=== PATIENT | female | born 1950 | race Caucasian/White ===

== ENCOUNTER → 2017-07-21 08:46 | Outpatient (CLI) | payer MEDICARE, OTHER, SELFPAY ==
--- NOTE | 2017-07-21 08:46 | DT_ITS ---
This patient was seen during an EMR downtime July 21, 2017 - July 28, 2017. This patient may have a combination of paper and electronic documentation or all paper documentation. All documentation is viewable within the e-chart portion of [employer] for each patient visit.
[2017-07-27 04:34] LABS: ALB/GLOB Ratio 1.3 RATIO (0.9-2.4); AST(SGOT) 18 U/L (15-37); Alanine Aminotransfer ALT/SGPT 19 U/L (13-56); Albumin, Serum 3.7 g/dL (3.2-5.0); Alkaline Phosphatase 134 U/L (45-117); BUN 15 mg/dL (7-18); BUN/Creat Ratio 24.6 RATIO (10-20); Calcium,Total 8.7 mg/dL (8.5-10.1); Cholesterol 270 mg/dL (200); Creatinine, Serum 0.61 mg/dL (0.55-1.02); EST Glomerular Filtration Rate 104 mL/min (>60); Est Glom Filt Rate - Afr Amer 126 mL/min (>60); Globulin 2.8 g/dL (2.2-4.2); Glucose 86 mg/dL (74-106); Protein, Total 6.5 g/dL (6.4-8.2); Sodium Level 141 mmol/L (136-145); Triglycerides 78 mg/dL; Very Low Density Lipoprotein 16 mg/dL (5-40)
[2017-07-27 04:35] LABS: Anion Gap 8 (5-15); Chloride 106 mmol/L (98-107); High Density Lipoprotein 104 mg/dL; Potassium 3.6 mmol/L (3.5-5.1)
[2017-07-27 09:18] LABS: Thyroid Stim Hormone (TSH) 1.16 uIU/mL (0.358-3.74)
[2017-07-27 09:51] LABS: Vitamin D,25 Hydroxy 29.5 ng/mL (29.95-100.01)
== END ==
PROVIDERS: Family Provider Family Medicine; PCP Family Medicine; Visit Provider Family Medicine
DX: E03.9 Hypothyroidism, unspecified (principal); E55.9 Vitamin D deficiency, unspecified; E78.2 Mixed hyperlipidemia
CPT/HCPCS: 36415; 80053; 80061; 82306; 84443

== ENCOUNTER → 2017-09-01 10:49 | Outpatient (CLI) | payer MEDICARE, OTHER, SELFPAY ==
--- NOTE | 2017-09-01 11:13 | MRI_ITS ---
STUDY: MRI BRAIN WITH AND WITHOUT CONTRAST (ATTENTION INTERNAL AUDITORY CANALS - I.A.C.'s) REASON FOR EXAM: Female, 66 years old. 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 Cochlear implant. Magnetic component of implant removed. Sudden right sided headaches when bending over. TECHNIQUE: Standardized multiplanar fat and water weighted pulse sequences were obtained. 6 ml of Gadavist contrast material was administered intravenously for the contrast portion of the examination. COMPARISON: 02/16/2016. FINDINGS: No restricted diffusion to suspect acute or subacute ischemic infarct. No focal signal abnormalities throughout the brain parenchyma. The zhong matter, white matter, ventricles and cisterns are normal. No enhancing lesions throughout the brain parenchyma. The ventricles and cisterns are normal. Soft tissue density in the right temporal mastoid bowl is at least postoperative fat graft.. There is mild contrast enhancement around the fat graft inside the mastoid bowl. Normal bilateral internal auditory canals. There is no demonstrated intracanalicular or cisternal vestibular schwannoma (acoustic neuroma). There is no enhancement of the bilateral VIIth or VIIIth cranial nerves. Normal bilateral cochlea, vestibules and semicircular canals. Normal size of the ventricles and extra-axial spaces for the patient's age. Normal white matter tracts of the supratentorial brain. Normal bilateral basal ganglia. Normal thalami. Normal flow voids within the major intracranial circulation suggesting patency by spin echo criteria. Normal venous enhancement. There is no enhancing intra-axial or extra-axial abnormality. There is no extra-axial fluid accumulation. Normal sella turcica, pituitary gland, infundibular stalk, optic chiasm and hypothalamus. Normal tectal plate and pineal gland. Normal midbrain, saige and medulla. Normal cerebellum. Normal basal cisterns. No demonstrated orbital abnormality, within the constraints of a routine brain study. Normal visualized paranasal sinuses. Normal calvarium and skull base. Normal visualized soft tissue structures. Normal visualized upper cervical spine. MRI/Brain W/WO Contrast IMPRESSION: 1. Normal MRI of the brain and thin sections through the internal auditory canals with and without contrast. 2. Postoperative contrast enhancement around the fat graft inside the right temporal mastoid bowl. COMMENT: CT of the temporal bones are more helpful for evaluation of postop changes of the right temporal bone if desired. Electronically Signed: Scar Conte MD at 16:06 EDT , Service support ,
== END ==
PROVIDERS: Family Provider Family Medicine; PCP Family Medicine; Visit Provider Family Medicine
DX: H93.3X9 Disorders of unspecified acoustic nerve (principal)
CPT/HCPCS: 70553; A9585

== ENCOUNTER → 2017-09-12 06:48 | Outpatient (CLI) | payer MEDICARE, OTHER, SELFPAY ==
--- NOTE | 2017-09-12 10:08 | STRESSREP ---
Stress Test Report Date: 09/11/2017 Procedure: Exercise tolerance test/imaging study Indications: Chest pain Consent: Per the patient Procedure: The patient exercised on a Raul protocol for 9 minutes completing Stage 3 achieving a peak heart rate of 157 bpm (102 % predicted maximal heart rate) with a peak blood pressure 156/70 mmHg and a peak MET capacity of 10 METs. The baseline ECG demonstrated normal sinus rhythm. The peak exercise ECG demonstrated no obvious ECG changes. There was an occasional PVC during exercise and recovery. The functional capacity was considered good. There was no complaint of chest discomfort during exercise or recovery. The examination was discontinued secondary to leg discomfort. Impression: 1. Technically adequate (percent predicted maximal heart rate greater than 85%) exercise tolerance test 2. Peak exercise ECG with no obvious ECG changes 3. There was an occasional PVC during exercise and recovery. 4. Nuclear images pending Myocardial perfusion imaging study: Technique: The patient was injected with 11.1 mCi of technetium 99m Cardiolite and subsequently rest SPECT Cardiolite nuclear imaging was obtained in the horizontal long, vertical long, and short axis views. The patient exercised on a Raul protocol for 9 minutes completing Stage 3 achieving a peak heart rate of 157 bpm (102 % predicted maximal heart rate) with a peak blood pressure 156/70 mmHg and a peak MET capacity of 10 METs. The patient was injected with 35 mCi of technetium 99m Cardiolite and subsequently stress SPECT Cardiolite nuclear imaging was obtained in the horizontal long, vertical long, and short axis views. A gated Cardiolite study at peak stress was obtained. Interpretation: Rest and stress SPECT Cardiolite nuclear imaging status post realignment, normalization, and attenuation correction, demonstrates the appearance of relative uniform tracer uptake and myocardial perfusion appearing within normal limits. There is end systolic thickening and brightening. The gated Cardiolite study demonstrates myocardial thickening and inward wall motion. The reported LVEF is 76 %. Impression: 1. Rest and stress SPECT Cardiolite nuclear imaging demonstrate relative uniform tracer uptake and myocardial perfusion appearing within normal limits. 2. The gated Cardiolite study reports an LVEF of 76 %. This note was generated with [employer] software. It may contain incorrect words, spelling, and punctuation that were not noted in checking the note before signing.
--- NOTE | 2017-09-12 10:16 | STRESSREP_ITS ---
Stress Test Report Date: 09/11/2017 Procedure: Exercise tolerance test/imaging study Indications: Chest pain Consent: Per the patient Procedure: The patient exercised on a Raul protocol for 9 minutes completing Stage 3 achieving a peak heart rate of 157 bpm (102 % predicted maximal heart rate) with a peak blood pressure 156/70 mmHg and a peak MET capacity of 10 METs. The baseline ECG demonstrated normal sinus rhythm. The peak exercise ECG demonstrated no obvious ECG changes. There was an occasional PVC during exercise and recovery. The functional capacity was considered good. There was no complaint of chest discomfort during exercise or recovery. The examination was discontinued secondary to leg discomfort. Impression: 1. Technically adequate (percent predicted maximal heart rate greater than 85% ) exercise tolerance test 2. Peak exercise ECG with no obvious ECG changes 3. There was an occasional PVC during exercise and recovery. 4. Nuclear images pending Myocardial perfusion imaging study: Technique: The patient was injected with 11.1 mCi of technetium 99m Cardiolite and subsequently rest SPECT Cardiolite nuclear imaging was obtained in the horizontal long, vertical long, and short axis views. The patient exercised on a Raul protocol for 9 minutes completing Stage 3 achieving a peak heart rate of 157 bpm (102 % predicted maximal heart rate) with a peak blood pressure 156/ 70 mmHg and a peak MET capacity of 10 METs. The patient was injected with 35 mCi of technetium 99m Cardiolite and subsequently stress SPECT Cardiolite nuclear imaging was obtained in the horizontal long, vertical long, and short axis views. A gated Cardiolite study at peak stress was obtained. Interpretation: Rest and stress SPECT Cardiolite nuclear imaging status post realignment, normalization, and attenuation correction, demonstrates the appearance of relative uniform tracer uptake and myocardial perfusion appearing within normal limits. There is end systolic thickening and brightening. The gated Cardiolite study demonstrates myocardial thickening and inward wall motion. The reported LVEF is 76 %. Impression: 1. Rest and stress SPECT Cardiolite nuclear imaging demonstrate relative uniform tracer uptake and myocardial perfusion appearing within normal limits. 2. The gated Cardiolite study reports an LVEF of 76 %. This note was generated with [employer] software. It may contain incorrect words, spelling, and punctuation that were not noted in checking the note before signing.
== END ==
PROVIDERS: Family Provider Family Medicine; PCP Family Medicine; Visit Provider Internal Medicine Cardiovascular Disease
DX: R07.9 Chest pain, unspecified (principal)
CPT/HCPCS: 78452; 93017; A9500; A4216

== ENCOUNTER → 2017-09-19 14:45 | Outpatient (CLI) | payer MEDICARE, OTHER, SELFPAY ==
--- NOTE | 2017-09-19 14:54 | CT_ITS ---
STUDY: CT BRAIN WITH AND WITHOUT CONTRAST REASON FOR EXAM: Female, 66 years old. Acoustic nerve disorder. RADIATION DOSAGE (If Supplied By Facility): CTDIvol = ( 44.99 ) mGy, DLP = ( 1547.23 ) mGycm TECHNIQUE: Transaxial CT imaging of the brain was performed pre and post contrast administration. The examination was performed with intravenous administration of 50 ml of Isovue 370 contrast material. Multiplanar reformations are submitted for interpretation. Individualized dose optimization techniques were used for this CT. COMPARISON: MRI of the brain dated September 01, 2017. FINDINGS: Normal soft tissue structures. 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 The right middle ear ossicles are within normal limits. The right external auditory canal is within normal limits. There appears to be ossification of the dura adjacent to the convexities of the brain. There is mild cerebral atrophy with widening of the extra-axial spaces and ventricular dilatation. There are areas of decreased attenuation within the white matter tracts of the supratentorial brain, consistent with microvascular disease changes. Normal basal ganglia and thalami. Normal brainstem. There is mild cerebellar atrophy. There is no evidence for abnormal enhancement. There is no intracranial hemorrhage. There is mild atherosclerotic calcification of the intracranial arteries. Normal visualized paranasal sinuses. CT/Brain/Head W/WO Contrast IMPRESSION: 1. Postoperative changes involving the right mastoid and temporal bone without evidence for complication. 2. Mild involutional changes of the brain. Electronically Signed: Judi Mike MD at 11:58 EDT , Service support ,
[2017-09-19 15:00] LABS: CREATININE FINGERSTICK < 0.6 mg/dL (0.55-1.02); EGFR FINGERSTICK > 60.0000 mL/min (>60)
== END ==
PROVIDERS: Family Provider Family Medicine; PCP Family Medicine; Visit Provider Family Medicine
DX: H93.3X9 Disorders of unspecified acoustic nerve (principal)
CPT/HCPCS: 70470; Q9967

== ENCOUNTER → 2017-12-18 09:28 | Outpatient (CLI) | payer MEDICARE, OTHER, SELFPAY ==
[2017-12-18 12:15] LABS: Vitamin D,25 Hydroxy 46.6 ng/mL (29.95-100.01)
[2017-12-18 12:41] LABS: Anion Gap 8 (5-15); BUN 13 mg/dL (7-18); BUN/Creat Ratio 20.2 RATIO (10-20); Calcium,Total 8.7 mg/dL (8.5-10.1); Chloride 104 mmol/L (98-107); Cholesterol 263 mg/dL (200); Creatinine, Serum 0.64 mg/dL (0.55-1.02); EST Glomerular Filtration Rate 97 mL/min (>60); Est Glom Filt Rate - Afr Amer 118 mL/min (>60); Glucose 81 mg/dL (74-106); High Density Lipoprotein 101 mg/dL; Sodium Level 141 mmol/L (136-145); Thyroid Stim Hormone (TSH) 1.36 uIU/mL (0.358-3.74); Triglycerides 92 mg/dL; Very Low Density Lipoprotein 18 mg/dL (5-40)
== END ==
PROVIDERS: Family Provider Family Medicine; PCP Family Medicine; Referring Provider Family Medicine; Visit Provider Family Medicine
DX: E78.2 Mixed hyperlipidemia (principal); E03.9 Hypothyroidism, unspecified; E55.9 Vitamin D deficiency, unspecified
CPT/HCPCS: 36415; 80048; 80061; 82306; 84443

== ENCOUNTER → 2018-04-01 09:43 | Outpatient (CLI) | payer MEDICARE, OTHER, SELFPAY ==
--- NOTE | 2018-04-01 09:48 | VDLE_ITS ---
Reason For Study: Varicose Veins RIGHT CFV is compressible, spontaneous, phasic, competent and demonstrates normal augmentation. FV is compressible, spontaneous, phasic, competent and demonstrates normal augmentation. POP V is compressible, spontaneous, phasic, competent and demonstrates normal augmentation. T/P Trunk is compressible. PTV is compressible. RT PerV is compressible. Rt SFJ is Competent Rt GSV is Incompetent with reflux greater than 0.5 sec and a diameter of 0.40cm x 0.47cm in the thigh and 0.18cm x 0.18cm in the calf Rt SSV is Competent. Procedure Exam performed in department. A preliminary report was called and/or faxed to Dr. Douglas. Interpretation Summary Deep veins of the right lower extremity are patent and compressible segmentally. There is no evidence of right lower extremity deep vein thrombosis. Valvular competence appears intact within the proximal deep venous system on the right . The right greater saphenous vein appears patent and compressible segmentally. The right sapheno-femoral junction is competent . The right greater saphenous vein appears segmentally incompetent. The right small saphenous vein is patent and competent. Ordering Physician: Bulmaro Douglas Referring Physician: Bulmaro Douglas Performed By: Fyae Hayes, ADDISON, RVT
== END ==
PROVIDERS: Family Provider Family Medicine; PCP Family Medicine; Referring Provider Family Medicine; Visit Provider Family Medicine
DX: I83.811 Varicose veins of right lower extremity with pain (principal)
CPT/HCPCS: 93971

== ENCOUNTER 2018-05-21 14:30 | Outpatient (RCR) | payer MEDICARE, OTHER, SELFPAY ==
--- NOTE | 2018-05-01 15:06 | HP.PTEVAL_ITS ---
Patient's Visit Information AYESHA FOLEY is a 67 year old F referred to Physical Therapy by Hawk Douglas MD with a diagnosis of LEFT TRAPEZIUS STRAIN. Date of Evaluation: 05/01/18 Physical Therapist: Chacho Estrada PT, Cert MDT, OCS - Visit Plan Frequency: 2x /Week Duration: 4 Weeks Plan: ICTX -# X15MIN,US/ MHP ,CERVICAL /POSURAL EX'S ,MANUAL THERAPY STM - Subjective Findings: This 67 y/o female presents to physical therapy with left upper trapezius strain . Patient has had left UT pain for 3 weeks. Patient inscidous onset pain in morning. Patient seen chiropractor did'nt help and massage didnt help as well. Symptoms described as ache . Aggraveting factors turning to left and looking up,driving [place] [employer]. Alleviating factors none. Denies parathesia/tingling. Denies ARMSTRONG/nausea/tinntus. 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 SOCAIL: . VOCATION: retired - Pain Left Neck Pain Intensity (Out of 10): 5 Pain Intensity Range: 10 Comment: turning - Objective POSTURE: mild foward posture. PALAPTION:tender UT/levator ,tender right posterior ear. NEURO: intact. MMT: grossly 4/5 ,shoulder ,RTC. CERVICAL ROM: flexion min loss ,lateral flexion/rotation to left mod loss pain,extension mod loss pain UT,right rotation/lateral flexion mod loss. MOBLILITY: restricted C2- 4 LEFT glides accessory - Special Tests C/S Radiculapathy - Left Upper limb tension test: Negative C/S Radiculapathy - Right Upper limb tension test: Negative C/S Radiculapathy - Left Spurlings: Positive C/S Radiculapathy - Right Spurlings: Negative C/S Radiculapathy - Left Cervical distraction: Negative C/S Radiculapathy - Right Cervical distraction: Negative C/S Radiculapathy - Left Relief test: Negative C/S Radiculapathy - Right Relief test: Negative Sharp Michelle: Negative Vertebral Artery Test: Negative Alar Ligament Test: Negative - Goals Goal 1:: Patient to be Independant with HEP Goal Time Frame: 4-6 Weeks Goal 2:: Patient to improve posture for ADL'S Goal Time Frame: 4-6 Weeks Goal 3:: Patient to improve cervical ROM left rotation/lateral flexion for function of recovery Goal Time Frame: 4-6 Weeks Goal 4:: Patient to decrease cervical pain by 60% or greater to impriove function with ADL'S Goal Time Frame: 4-6 Weeks Goal 5:: Patient to improve neck GISELL score by 5 points to improve QOL. - Rehabilitation Potential Physical Therapy Diagnosis: This patient has left cervical spine restriction left side with pain affects cervical ROM ,ADL'S and driving thus benifit from skilled PT Rehabilitation Potential: Good - Anticipated Interventions Patient/Client Instruction: Educate patient on: Condition, Plan of Care For the Purpose of:: To decrease pain, To increase ROM, To improve muscle performance and motor function, To improve ability to perform ADL's, To increase tolerance to activity/condition/position, To improve ability of physical actions for home/community/work/leisure, To improve health of tissue, To decrease soft tissue restriction, To increase flexibility/ROM, To improve ability to perform tasks related to life management Therapeutic Exercise to Include: Strength training, Body mechanics, Postural training, Flexibilty training, Active ROM Comment: cervical For the Purpose of:: To decrease pain, To increase ROM, To improve nutrient delivery to tissue, To increase oxygenation perfusion, To improve muscle performance and motor function, To increase tolerance to activity/condition/position, To improve ability of physical actions for home/community/work/leisure, To improve health of tissue, To decrease soft tissue restriction, To increase flexibility/ROM, To improve ability to perform tasks related to life management Manual Therapy Techniques to Include: Soft tissue mobilization For the Purpose of:: To decrease pain, To increase ROM, To improve nutrient delivery to tissue, To increase oxygenation perfusion, To improve health of tissue, To decrease soft tissue restriction Cryotherapy (ice pack, ice massage): Yes Thermo therapy (hot pack): Yes Ultrasound (thermal/non thermal): Yes For the Purpose of:: To decrease pain, To increase ROM, To improve health of tissue, To decrease soft tissue restriction Thank you for the opportunity to evaluate your patient. For Medicare and Medicare HMO plans, please review the plan of care and approve it. It will need to be FAXED BACK to us at [phone] for Medicare purposes. For Medicare only, by signing this I certify the plan of care. Please let me know if there are questions or concerns regarding this plan of care. Physician Signature: Date:_
--- NOTE | 2018-10-01 15:27 | HP.PTDCSUM ---
HP - PT D/C Summary It has been my pleasure to treat AYESHA FOLEY under orders from Hawk Douglas MD, for the diagnosis of LEFT TRAPEZIUS STRAIN for a total of 7 visit(s). Discharge Date: 05/21/18 Please see the following information for a summary of their discharge status. - Subjective Subjective: Patient reports not much better. No pain at rest. stiff in AM and when turning my neck to left. - Pain Left Neck Pain Intensity (Out of 10): 0 - Overall Improvement % Improvement: 40 - Objective Objective/Function: POSTURE: mild foward posture. NEURO: INTACT. NEURO: untact. CERVICAL ROM: flexion min loss ,lateral flexion/rotaion min loss pain left Upper c spine NW. PALPATION: tender UT /levator - Goals Goal 1:: Patient to be Independant with HEP Goal Progress: Goal Met Goal 2:: Patient to improve posture for ADL'S Goal Progress: Goal Met Goal 3:: Patient to improve cervical ROM left rotation/lateral flexion for function of recovery Goal Progress: Progressing Goal 4:: Patient to decrease cervical pain by 60% or greater to impriove function with ADL'S Goal Progress: Progressing Goal 5:: Patient to improve neck GISELL score by 5 points to improve QOL. Goal Progress: Progressing - Plan Plan: D/C TO HEP - D/C Information Discharge Comments: HEP If there are questions or concerns regarding this patient's physical therapy, please feel free to call me at [phone]. Thank you for the referral of this patient. Sincerely, Chacho Estrada, PT, Cert MDT, OCS
== END 2018-05-21 19:00 ==
LOC: PT 14:30
PROVIDERS: Family Provider Family Medicine; PCP Family Medicine; Referring Provider Family Medicine; Visit Provider Family Medicine
DX: S46.912D Strain of unspecified muscle, fascia and tendon at shoulder and upper arm level, left arm, subsequent encounter (principal)
CPT/HCPCS: 97012; 97014; 97035; 97140; 97162; 97530; G0283

== ENCOUNTER → 2018-09-15 07:36 | Outpatient (CLI) | payer MEDICARE, OTHER, SELFPAY ==
[2018-09-15 10:33] LABS: Vitamin D,25 Hydroxy 49.9 ng/mL (29.95-100.01)
[2018-09-15 10:37] LABS: Anion Gap 6 (5-15); BUN 17 mg/dL (7-18); BUN/Creat Ratio 26.4 RATIO (10-20); Calcium,Total 8.7 mg/dL (8.5-10.1); Chloride 106 mmol/L (98-107); Creatinine, Serum 0.64 mg/dL (0.55-1.02); EST Glomerular Filtration Rate 97 mL/min (>60); Est Glom Filt Rate - Afr Amer 117 mL/min (>60); Glucose 84 mg/dL (74-106); Potassium 3.8 mmol/L (3.5-5.1); Sodium Level 142 mmol/L (136-145); Thyroid Stim Hormone (TSH) 1.96 uIU/mL (0.358-3.74)
== END ==
PROVIDERS: Family Provider Family Medicine; PCP Family Medicine; Referring Provider Family Medicine; Visit Provider Family Medicine
DX: E03.9 Hypothyroidism, unspecified (principal); E55.9 Vitamin D deficiency, unspecified
CPT/HCPCS: 36415; 80048; 82306; 84443

== ENCOUNTER → 2018-09-22 12:01 | Outpatient (CLI) | payer MEDICARE, BC, SELFPAY ==
[2018-09-22 14:39] LABS: Magnesium 2.3 mg/dL (1.6-2.6); Phosphorus 3.6 mg/dL (2.5-4.9)
[2018-09-22 14:46] LABS: PTHIN 58.6 pg/mL (18.4-80.1)
== END ==
PROVIDERS: Family Provider Family Medicine; PCP Family Medicine; Referring Provider Family Medicine; Visit Provider Family Medicine
DX: M81.0 Age-related osteoporosis without current pathological fracture (principal)
CPT/HCPCS: 36415; 82330; 83735; 83970; 84100

== ENCOUNTER → 2018-12-10 12:42 | Outpatient (CLI) | payer MEDICARE, BC, SELFPAY ==
[2018-11-25 11:30] VITALS: BMI 24.1
--- NOTE | 2018-12-10 12:43 | ECHOD_ITS ---
Reason For Study: MURMUR Procedure This was a 2D Doppler, Color Flow transthoracic echocardiogram. The study was technically difficult. Exam performed in department. Left Ventricle Normal LV size. Left ventricular systolic function is normal. The estimated ejection fraction is 60 %. Diastolic function is indeterminate. No regional wall motion abnormalities noted. Right Ventricle Normal RV size. Normal systolic function. Atria Normal left atrium. Normal right atrium. No doppler evidence for ASD. Mitral Valve There is no mitral annular calcification. Normal mitral valve. Mild (1+) mitral valve insufficiency. Tricuspid Valve Normal tricuspid valve. Trivial tricuspid valve insufficiency. Unable to estimate RV systolic pressure/pulmonary artery pressure due to technically difficult study. Aortic Valve Trisinus/trileaflet aortic valve. Normal aortic valve. Pulmonic Valve The pulmonic valve is not well visualized. Trivial pulmonic valve insufficiency. Great Vessels Normal sized aortic root. Pericardium/Pleural Trivial pericardial effusion. There are no echocardiographic indications of cardiac tamponade. MMode/2D Measurements & Calculations LVIDd: 4.4 cm IVSd: 1.1 cm Ao root diam: 2.6 cm LVIDs: 3.0 cm LVPWd: 0.93 cm RVDd: 3.0 cm FS: 30.8 % LAV(MOD-bp): 32.4 ml LA A4 area: 14.9 cm2 LA dimension(2D): 3.1 cm LAV(MOD-bp) Indexed: 20.5 ml/m2 LAV(MOD-sp2): 27.5 ml LAV(MOD-sp4): 36.6 ml RA A4 area: 12.6 cm2 Time Measurements MV dec time: 0.16 sec Doppler Measurements & Calculations MV E max anthony: 82.7 cm/sec Lat Peak E' Anthony: 5.9 cm/sec Med Peak E' Anthony: 6.4 cm/sec MV A max anthony: 105.1 cm/sec E/E' lat: 13.9 E/E' med: 12.9 MV E/A: 0.79 Ao V2 max: 142.0 cm/sec LV V1 max: 84.5 cm/sec PA V2 max: 95.0 cm/sec Ao max P.1 mmHg LV V1 max P.9 mmHg Interpretation Summary The study was technically difficult. Left ventricular systolic function is normal. The estimated ejection fraction is 60 %. Mild (1+) mitral valve insufficiency. Trivial tricuspid valve insufficiency. Trivial pulmonic valve insufficiency. Trivial pericardial effusion. There are no echocardiographic indications of cardiac tamponade. Unable to estimate RV systolic pressure/pulmonary artery pressure due to technically difficult study. Diastolic function is indeterminate. Ordering Physician: Mac Bynum Referring Physician: Bulmaro Douglas Performed By: Deysi Infante, ADDISON, RVT
== END ==
PROVIDERS: Family Provider Family Medicine; PCP Family Medicine; Referring Provider Internal Medicine Cardiovascular Disease; Visit Provider Internal Medicine Cardiovascular Disease
DX: R01.1 Cardiac murmur, unspecified (principal)
CPT/HCPCS: 93306

== ENCOUNTER → 2019-01-07 08:31 | Outpatient (CLI) | payer MEDICARE, BC, SELFPAY ==
[2018-11-25 11:30] VITALS: BMI 24.1
--- NOTE | 2019-01-07 17:35 | NEURO ---
NCS and/or EMG Patient Report HPI: Patient is a 68-year-old female presented with feeling of tape stuck to bottom of her feet, right worse than left, which has been going on for last 2 years. Patient has calluses in feet. Sensation goes throughout the entire foot and into her ankle. Patient has H/O back problems but currently denying any back pain or radiating pain in the legs. Physical Exam: Calluses present in the right foot at the head of the metatarsal bones on both feet, more prominent on the right side than the left side. Decreased sensation to light touch in the both feet and distal ankle area. Findings: 1. There is prolongation of the distal latency of left sural sensory nerve response. 2. Rest of sensory and motor nerve conduction studies in the bilateral lower extremities are within normal limits. 3. Normal needle examination of the bilateral lower extremities. Impression: 1. 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 2. Rest of the nerve conduction studies were normal in bilateral lower extremities. Recommendation: 1. Clinical correlation and appropriate work-up is recommended.
== END ==
PROVIDERS: Family Provider Family Medicine; PCP Family Medicine; Referring Provider Podiatrist; Visit Provider Podiatrist
DX: G62.9 Polyneuropathy, unspecified (principal); R20.0 Anesthesia of skin
CPT/HCPCS: 95886; 95911

== ENCOUNTER → 2019-03-02 09:20 | Outpatient (CLI) | payer MEDICARE, BC, SELFPAY ==
[2018-11-25 11:30] VITALS: BMI 24.1
[2019-03-02 12:21] LABS: Erythrocyte Sedimentation Rate 4 mm/hr (0-30)
[2019-03-02 13:12] LABS: Rheumatoid Factor < 10.0 IU/mL (<15); Thyroid Stim Hormone (TSH) 1.34 uIU/mL (0.358-3.74)
[2019-03-02 13:21] LABS: HIV - WCH Non-Reactive (Nonreactive); Vitamin B12 501 pg/mL (211-911)
[2019-03-02 13:29] LABS: Hepatitis C Antibody REACTIVE (Nonreactive)
[2019-03-03 12:07] LABS: RNP Ab <0.2 AI (0.0-0.9); Smith Ab <0.2 AI (0.0-0.9)
[2019-03-03 13:10] LABS: ANTINUCLEAR ANTIBODIES DIRECT Positive (Negative)
[2019-03-03 20:07] LABS: Immunoglobulin A 85 mg/dL (87-352); Immunoglobulin G 507 mg/dL (700-1600); PROEL- A/G Ratio 1.5 (0.7-1.7); PROEL- Albumin 3.5 g/dL (2.9-4.4); PROEL- Alpha-1 Globulin 0.2 g/dL (0.0-0.4); PROEL- Alpha-2 Globulin 0.7 g/dL (0.4-1.0); PROEL- Beta Globulin 0.9 g/dL (0.7-1.3); PROEL- Gamma Globulin 0.5 g/dL (0.4-1.8); PROEL- Globulin, Total 2.3 g/dL (2.2-3.9); PROEL- TOTAL PROTEIN 5.8 g/dL (6.0-8.5)
[2019-03-03 20:55] LABS: Immunoglobulin M 120 mg/dL (26-217)
== END ==
PROVIDERS: Family Provider Family Medicine; PCP Family Medicine; Referring Provider Psychiatry & Neurology Neurology; Visit Provider Psychiatry & Neurology Neurology
DX: G62.9 Polyneuropathy, unspecified (principal)
CPT/HCPCS: 36415; 82607; 82746; 82784; 84165; 84443; 85652; 86038; 86235; 86334; 86431; 86703; 86803

== ENCOUNTER → 2019-03-08 11:16 | Outpatient (CLI) | payer MEDICARE, BC, SELFPAY ==
[2018-11-25 11:30] VITALS: BMI 24.1
--- NOTE | 2019-03-08 11:20 | RAD_ITS ---
STUDY: X-RAY CHEST REASON FOR EXAM: Female, 68 years old. Cough. TECHNIQUE: PA and lateral views of the chest. COMPARISON: 02/15/2016. FINDINGS: Cardiac silhouette unremarkable. Pulmonary vascularity unremarkable. Aorta unremarkable. No focal airspace opacities. No pleural effusions. Upper abdomen unremarkable. Osseous structures demonstrate no acute abnormality. No pneumothorax. RAD/Chest PA and Lateral IMPRESSION: No acute cardiopulmonary findings Electronically Signed: Brendon Ortega, at 13:44 EST Tel , Service support ,
[2019-03-08 14:20] LABS: AST(SGOT) 16 U/L (15-37); Alanine Aminotransfer ALT/SGPT 23 U/L (13-56); Albumin, Serum 3.7 g/dL (3.2-5.0); Alkaline Phosphatase 119 U/L (45-117); CRP < 2.90 mg/L (0.0-3.0); Globulin 3.3 g/dL (2.2-4.2)
[2019-03-11 15:49] LABS: Anti-Nuclear Antibody Test Negative (.)
== END ==
PROVIDERS: PCP Family Medicine; Referring Provider Family Medicine; Visit Provider Family Medicine
DX: R05 Cough (principal); G62.9 Polyneuropathy, unspecified; Z86.19 Personal history of other infectious and parasitic diseases
CPT/HCPCS: 36415; 71046; 80076; 86038; 86140

== ENCOUNTER → 2019-03-16 09:26 | Outpatient (CLI) | payer MEDICARE, BC, SELFPAY ==
[2018-11-25 11:30] VITALS: BMI 24.1
[2019-03-16 11:33] LABS: Glucose GTT- Fasting 77 mg/dL (74-106)
[2019-03-16 11:41] LABS: Glucose GTT-30 minutes 110 mg/dL (110-170)
[2019-03-16 12:48] LABS: Glucose GTT- 1 Hour 92 mg/dL (120-170)
[2019-03-16 14:21] LABS: Glucose GTT- 2 Hour 85 mg/dL (70-120)
== END ==
PROVIDERS: Family Provider Family Medicine; PCP Family Medicine; Referring Provider Psychiatry & Neurology Neurology; Visit Provider Psychiatry & Neurology Neurology
DX: R53.83 Other fatigue (principal); G62.9 Polyneuropathy, unspecified
CPT/HCPCS: 36415; 82607; 82746; 82784; 82951; 82952; 84165; 85652; 86038; 86235; 86334; 86431; 86703; 86803

== ENCOUNTER → 2019-03-23 09:02 | Outpatient (CLI) | payer MEDICARE, BC, SELFPAY ==
[2018-11-25 11:30] VITALS: BMI 24.1
[2019-03-23 11:07] LABS: Cholesterol 299 mg/dL (200); High Density Lipoprotein 106 mg/dL; Triglycerides 83 mg/dL; Very Low Density Lipoprotein 17 mg/dL (5-40)
[2019-03-23 11:13] LABS: Vitamin D,25 Hydroxy 49.5 ng/mL (29.95-100.01)
== END ==
PROVIDERS: PCP Family Medicine; Referring Provider Family Medicine; Visit Provider Family Medicine
DX: M81.0 Age-related osteoporosis without current pathological fracture (principal); E55.9 Vitamin D deficiency, unspecified; E78.2 Mixed hyperlipidemia
CPT/HCPCS: 36415; 80061; 82306; 82330

== ENCOUNTER → 2019-03-29 09:39 | Outpatient (CLI) | payer MEDICARE, BC, SELFPAY ==
[2018-11-25 11:30] VITALS: BMI 24.1
[2019-03-31 20:07] LABS: HCV Quant. RNA PCR HCV Not Detected IU/mL (.)
== END ==
PROVIDERS: PCP Family Medicine; Referring Provider Family Medicine; Visit Provider Family Medicine
DX: R76.8 Other specified abnormal immunological findings in serum (principal)
CPT/HCPCS: 36415; 87522

== ENCOUNTER → 2019-05-05 08:18 | Outpatient (CLI) | payer MEDICARE, BC, SELFPAY ==
[2018-11-25 11:30] VITALS: BMI 24.1
== END ==
PROVIDERS: PCP Family Medicine; Referring Provider Physician Assistant; Visit Provider Physician Assistant
DX: M81.0 Age-related osteoporosis without current pathological fracture (principal)
CPT/HCPCS: 81050

== ENCOUNTER → 2019-06-14 08:49 | Outpatient (CLI) | payer MEDICARE, BC, SELFPAY ==
[2018-11-25 11:30] VITALS: BMI 24.1
== END ==
PROVIDERS: PCP Family Medicine; Referring Provider Internal Medicine Endocrinology, Diabetes & Metabolism; Visit Provider Internal Medicine Endocrinology, Diabetes & Metabolism
DX: E03.8 Other specified hypothyroidism (principal)
CPT/HCPCS: 36415; 84443

== ENCOUNTER → 2019-10-19 09:48 | Outpatient (CLI) | payer MEDICARE, BC, SELFPAY ==
[2018-11-25 11:30] VITALS: BMI 24.1
[2019-10-19 12:25] LABS: ALB/GLOB Ratio 1.4 RATIO (0.9-2.4); AST(SGOT) 17 U/L (15-37); Alanine Aminotransfer ALT/SGPT 18 U/L (13-56); Albumin, Serum 3.7 g/dL (3.2-5.0); Alkaline Phosphatase 135 U/L (45-117); Anion Gap 4 (5-15); BUN 17 mg/dL (7-18); BUN/Creat Ratio 24.3 RATIO (10-20); Calcium,Total 8.6 mg/dL (8.5-10.1); Chloride 105 mmol/L (98-107); Cholesterol 292 mg/dL (200); EST Glomerular Filtration Rate 88 mL/min (>60); Est Glom Filt Rate - Afr Amer 106 mL/min (>60); Globulin 2.7 g/dL (2.2-4.2); Glucose 82 mg/dL (74-106); High Density Lipoprotein 112 mg/dL; Potassium 4.2 mmol/L (3.5-5.1); Protein, Total 6.4 g/dL (6.4-8.2); Sodium Level 141 mmol/L (136-145); T4 Free Direct 1.25 ng/dL (0.76-1.46); Thyroid Stim Hormone (TSH) 1.26 uIU/mL (0.358-3.74); Triglycerides 88 mg/dL; Very Low Density Lipoprotein 18 mg/dL (5-40)
== END ==
PROVIDERS: PCP Family Medicine; Referring Provider Family Medicine; Visit Provider Family Medicine
DX: E78.2 Mixed hyperlipidemia (principal); E03.9 Hypothyroidism, unspecified
CPT/HCPCS: 36415; 80053; 80061; 84439; 84443

== ENCOUNTER → 2019-11-19 14:39 | Outpatient (CLI) | payer MEDICARE, BC, SELFPAY ==
[2018-11-25 11:30] VITALS: BMI 24.1
--- NOTE | 2019-11-19 14:59 | BI_ITS ---
MAMMOGRAPHY - BILATERAL SCREENING REASON FOR EXAM: Female, 69 years old. Routine annual screening examination. PERTINENT HISTORY: Non-contributory. TECHNIQUE: Digital bilateral breast vandana (3D mammographic acquisition) in the CC and MLO projections. 2-D mediolateral oblique (MLO) and craniocaudad (CC) views of both breasts were obtained. CAD: Full Field Digital Mammography with Computer Added Detection was performed. COMPARISON: Comparison is made to prior study dated 08/24/2018. FINDINGS: Breast Composition: There are scattered areas of fibroglandular density. There are no dominant masses or suspicious calcifications. No other significant abnormalities are identified. There has been no significant change since the prior study. BI/SCREEN MAMM (CAD) W/VANDANA BILAT IMPRESSION: Stable bilateral screening mammogram. Yearly follow-up mammogram recommended. (A) ASSESSMENT CATEGORY: BIRADS Category 1: Negative. A letter regarding these results will be sent to the patient by the facility within 30 days. Approximately 10% of breast cancers are not detected by mammography. A normal mammogram should not delay biopsy of a clinically suspicious abnormality. [id number] Electronically Signed: Kingston Domingo, at 15:47 EDT , Service support ,
== END ==
PROVIDERS: PCP Family Medicine; Visit Provider Family Medicine
DX: Z12.31 Encounter for screening mammogram for malignant neoplasm of breast (principal)
CPT/HCPCS: 77063; 77067

== ENCOUNTER → 2019-12-28 08:20 | Outpatient (CLI) | payer MEDICARE, BC, SELFPAY ==
[2018-11-25 11:30] VITALS: BMI 24.1
[2019-12-28 10:06] LABS: Vitamin D,25 Hydroxy 54.1 ng/mL
[2019-12-28 10:16] LABS: ALB/GLOB Ratio 1.1 RATIO (0.9-2.4); AST(SGOT) 16 U/L (15-37); Alanine Aminotransfer ALT/SGPT 20 U/L (13-56); Albumin, Serum 3.4 g/dL (3.2-5.0); Alkaline Phosphatase 147 U/L (45-117); Anion Gap 4 (5-15); BUN 18 mg/dL (7-18); BUN/Creat Ratio 26.4 RATIO (10-20); Calcium,Total 8.5 mg/dL (8.5-10.1); Chloride 105 mmol/L (98-107); Creatinine, Serum 0.68 mg/dL (0.55-1.02); EST Glomerular Filtration Rate 91 mL/min (>60); Est Glom Filt Rate - Afr Amer 110 mL/min (>60); Globulin 3.2 g/dL (2.2-4.2); Glucose 85 mg/dL (74-106); Magnesium 2.3 mg/dL (1.6-2.6); Potassium 3.9 mmol/L (3.5-5.1); Protein, Total 6.6 g/dL (6.4-8.2); Sodium Level 141 mmol/L (136-145); Thyroid Stim Hormone (TSH) 2.73 uIU/mL (0.358-3.74)
== END ==
PROVIDERS: PCP Family Medicine; Referring Provider Internal Medicine Endocrinology, Diabetes & Metabolism; Visit Provider Internal Medicine Endocrinology, Diabetes & Metabolism
DX: M81.0 Age-related osteoporosis without current pathological fracture (principal); E03.8 Other specified hypothyroidism; E83.42 Hypomagnesemia
CPT/HCPCS: 36415; 80053; 82306; 83735; 84443

== ENCOUNTER → 2020-05-01 09:55 | Outpatient (CLI) | payer MEDICARE, BC, SELFPAY ==
[2018-11-25 11:30] VITALS: BMI 24.1
[2020-05-01 10:58] LABS: Absolute Lymphocyte Count 1.15 X10^3/uL (0.83-4.51); Absolute Neutrophil Count 2.5 X10^3/uL (2.0-7.7); Basophil# 0.04 X10^3/uL; Basophil% 0.9 % (0-1); Eosinophil# 0.22 X10^3/uL; Eosinophils% 5.1 % (0-5); Hematocrit 38.6 % (37-47); Hemoglobin 12.1 g/dL (12.0-15.0); Lymphocyte # 1.15 X10^3/ul (4.0); Lymphocyte % 26.4 % (19-41); Mean Corp Hgb Conc 31.3 g/dL (32-36); Mean Corpuscular Hgb 30.8 pg (27.0-32.0); Mean Corpuscular Volume 98.2 fL (81-99); Mean Platelet Vol. 9.2 fl (6.2-12.0); Monocyte# 0.41 X10^3/uL; Monocyte% 9.4 % (0-10); NRBC Flagged by Analyzer 0 % (0-5); Neutrophil # 2.52 X10^3/uL (2.7-7.7); Platelet Count 248 K/mm3 (150-450); RBC Distribution Width CV 12.2 % (11.6-14.6); RBC Distribution Width SD 44.4 fl (35.1-43.9); Red Blood Count 3.93 M/mm3 (4.2-5.4); White Blood Count 4.4 K/mm3 (4.4-11.0)
[2020-05-01 11:40] LABS: ALB/GLOB Ratio 1.1 RATIO (0.9-2.4); AST(SGOT) 16 U/L (15-37); Alanine Aminotransfer ALT/SGPT 14 U/L (13-56); Albumin, Serum 3.3 g/dL (3.2-5.0); Alkaline Phosphatase 158 U/L (45-117); Anion Gap 4 (5-15); BUN 19 mg/dL (7-18); BUN/Creat Ratio 25.9 RATIO (10-20); Calcium,Total 8.4 mg/dL (8.5-10.1); Chloride 106 mmol/L (98-107); Creatinine, Serum 0.74 mg/dL (0.55-1.02); EST Glomerular Filtration Rate 83 mL/min (>60); Est Glom Filt Rate - Afr Amer 100 mL/min (>60); Globulin 3.1 g/dL (2.2-4.2); Glucose 86 mg/dL (74-106); Potassium 3.7 mmol/L (3.5-5.1); Protein, Total 6.4 g/dL (6.4-8.2); Sodium Level 141 mmol/L (136-145); T4 Free Direct 1.27 ng/dL (0.76-1.46); Thyroid Stim Hormone (TSH) 1.08 uIU/mL (0.358-3.74)
[2020-05-02 20:42] LABS: Anti-Thyroglobulin AB < 1.0 IU/mL (0.0-0.9); Thyroglobulin, Serum Qt. 1.7 ng/mL (1.5-38.5); Thyroid Peroxidase AB < 9 IU/mL (0-34)
== END ==
PROVIDERS: Internal Medicine Endocrinology, Diabetes & Metabolism; PCP Family Medicine
DX: Z00.00 Encounter for general adult medical examination without abnormal findings (principal); M81.0 Age-related osteoporosis without current pathological fracture; E03.8 Other specified hypothyroidism
CPT/HCPCS: 80053; 84432; 84439; 84443; 85025; 86376; 86800

== ENCOUNTER → 2020-07-04 16:47 | Outpatient (CLI) | payer MEDICARE, BC, SELFPAY ==
[2018-11-25 11:30] VITALS: BMI 24.1
--- NOTE | 2020-07-04 17:30 | MRI_ITS ---
STUDY: MRI BRAIN WITH AND WITHOUT CONTRAST REASON FOR EXAM: Female, 69 years old. Nerve disorder IACS TECHNIQUE: Standardized multiplanar fat and water weighted pulse sequences were obtained. 11ml DOtarem via IV was administered for the contrast portion of the examination. COMPARISON: CT brain 09/19/2017 and MR brain 02/16/2016 FINDINGS: Normal size of the ventricles and extra-axial spaces for the patient''s age. Normal white matter tracts of the supratentorial brain. There is no evidence for recent intracranial ischemia or other cause of cytotoxic edema on diffusion weighted imaging (DWI). Normal bilateral basal ganglia. Normal thalami. There is no extra-axial fluid accumulation. Normal flow voids within the major intracranial circulation suggesting patency by spin echo criteria. Normal venous enhancement. Fat graft and mild contrast enhancement again noted in the mastoid bowl on the right. No definite recurrent schwannoma. Normal sella turcica, pituitary gland, infundibular stalk, optic chiasm and hypothalamus. Normal tectal plate and pineal gland. Normal midbrain, saige and medulla. Normal cerebellum. Normal basal cisterns. Normal left temporal bones. Normal bilateral internal auditory canals. No demonstrated orbital abnormality, within the constraints of a routine brain study. Normal visualized paranasal sinuses. Normal calvarium and skull base. Normal visualized soft tissue structures. Normal visualized upper cervical spine. MRI/Brain W/WO Contrast IMPRESSION: Post surgical changes right mastoid bowl. No acute disease or recurrent schwannoma. Electronically Signed: Jayme Morales MD at 23:50 EDT , Service support ,
== END ==
PROVIDERS: PCP Family Medicine; Referring Provider Family Medicine; Visit Provider Family Medicine
DX: H93.3X9 Disorders of unspecified acoustic nerve (principal)
CPT/HCPCS: 70553; A9575

== ENCOUNTER → 2020-08-22 09:14 | Outpatient (CLI) | payer MEDICARE, BC, SELFPAY ==
[2018-11-25 11:30] VITALS: BMI 24.1
[2020-08-22 10:02] LABS: Hematocrit 39.1 % (37-47); Hemoglobin 12.9 g/dL (12.0-15.0); Mean Corpuscular Hgb 30.9 pg (27.0-32.0); Mean Corpuscular Volume 93.5 fL (81-99); Mean Platelet Vol. 9.2 fl (6.2-12.0); Platelet Count 236 K/mm3 (150-450); RBC Distribution Width CV 12.3 % (11.6-14.6); RBC Distribution Width SD 42.7 fl (35.1-43.9); Red Blood Count 4.18 M/mm3 (4.2-5.4)
[2020-08-22 10:36] LABS: ALB/GLOB Ratio 1.3 RATIO (0.9-2.4); AST(SGOT) 17 U/L (15-37); Alanine Aminotransfer ALT/SGPT 15 U/L (13-56); Albumin, Serum 3.6 g/dL (3.2-5.0); Alkaline Phosphatase 110 U/L (45-117); Anion Gap 4 (5-15); BUN 14 mg/dL (7-18); BUN/Creat Ratio 19.5 RATIO (10-20); Calcium,Total 8.8 mg/dL (8.5-10.1); Chloride 106 mmol/L (98-107); Cholesterol 262 mg/dL (200); Creatinine, Serum 0.72 mg/dL (0.55-1.02); EST Glomerular Filtration Rate 85 mL/min (>60); Est Glom Filt Rate - Afr Amer 103 mL/min (>60); Globulin 2.8 g/dL (2.2-4.2); Glucose 81 mg/dL (74-106); High Density Lipoprotein 109 mg/dL; Potassium 3.8 mmol/L (3.5-5.1); Protein, Total 6.4 g/dL (6.4-8.2); Sodium Level 140 mmol/L (136-145); Triglycerides 78 mg/dL; Very Low Density Lipoprotein 16 mg/dL (5-40)
[2020-08-22 10:41] LABS: Vitamin B12 > 2000 pg/mL (211-911)
== END ==
PROVIDERS: PCP Family Medicine; Referring Provider Family Medicine; Visit Provider Family Medicine
DX: Z00.00 Encounter for general adult medical examination without abnormal findings (principal); G25.81 Restless legs syndrome; R53.83 Other fatigue; E78.2 Mixed hyperlipidemia; E03.9 Hypothyroidism, unspecified
CPT/HCPCS: 36415; 80053; 80061; 82607; 85027

== ENCOUNTER → 2020-09-12 15:16 | Outpatient (CLI) | payer MEDICARE, BC, SELFPAY ==
[2018-11-25 11:30] VITALS: BMI 24.1
--- NOTE | 2020-09-12 15:27 | BD_ITS ---
STUDY: DUAL ENERGY X-RAY ABSORPTIOMETRY / DXA REASON FOR EXAM: Female, 69 years old. M810. Patient is postmenopausal. TECHNIQUE: Bone Mineral Density (BMD) measurements of lumbar spine and bilateral hips were obtained. COMPARISON: None. FINDINGS: Lumbar Spine (L1-L4): g/cm2 (0.946) / T-score (-0.8) / Z-score (1.3) Findings are suggestive of normal bone density with a low fracture risk. Left Femur Total: g/cm2 (0.706) / T-score (-1.9) / Z-score (-0.4) Left Femoral Neck: g/cm2 (0.567) / T-score (-2.5) / Z-score (-0.7) Right Femur Total: g/cm2 (0.675) / T-score (-2.2) / Z-score (-0.6) Right Femoral Neck: g/cm2 (0.558) / T-score (-2.6) / Z-score (-0.8) BD/Dexa Bone Density Study IMPRESSION: The patient is considered osteoporotic as outlined below according to World Vic Organization (WHO) criteria with a high fracture risk. Reference Information: The T-score is the number of standard deviations above or below the standard which is normal for young adults at their peak bone mineral density. The World Health Organization (WHO) interprets the T-scores as follows: Above -1 Normal bone density Between -1 and -2.5 Osteopenia Equal to / or below -2.5 Osteoporosis As a practical clinical guideline, osteopenia may be graded as follows: Mild -1 through -1.5 Moderate -1.6 through -2.0 Severe -2.1 through -2.4 The Z-score is the number of standard deviations above or below age-matched controls. A Z-score of less than -1.5 would be considered abnormal. References: 1. NIH Osteoporosis and Related Bone Diseases www osteo.org 2. International Society for Clinical Densitometry www iscd.org 3. National Osteoporosis Foundation www nof.org Electronically Signed: Kingston Domingo MD at 21:49 EDT , Service support ,
== END ==
PROVIDERS: PCP Family Medicine; Referring Provider Family Medicine; Visit Provider Family Medicine
DX: M81.0 Age-related osteoporosis without current pathological fracture (principal); Z78.0 Asymptomatic menopausal state
CPT/HCPCS: 77080

== ENCOUNTER → 2020-11-08 08:09 | Outpatient (CLI) | payer MEDICARE, BC, SELFPAY ==
[2020-11-08 10:26] LABS: PTHIN 38.7 pg/mL (18.4-80.1)
[2020-11-08 10:29] LABS: Vitamin D,25 Hydroxy 67.6 ng/mL
[2020-11-08 10:33] LABS: Anion Gap 2 (5-15); BUN 18 mg/dL (7-18); BUN/Creat Ratio 25.6 RATIO (10-20); Chloride 106 mmol/L (98-107); EST Glomerular Filtration Rate 87 mL/min (>60); Est Glom Filt Rate - Afr Amer 106 mL/min (>60); Glucose 83 mg/dL (74-106); Phosphorus 3.4 mg/dL (2.5-4.9); Potassium 3.6 mmol/L (3.5-5.1); Sodium Level 140 mmol/L (136-145)
== END ==
PROVIDERS: PCP Family Medicine; Referring Provider Family Medicine; Visit Provider Family Medicine
DX: M81.0 Age-related osteoporosis without current pathological fracture (principal)
CPT/HCPCS: 36415; 80048; 82306; 82330; 83970; 84100

== ENCOUNTER → 2020-11-20 08:35 | Outpatient (CLI) | payer MEDICARE, BC, SELFPAY ==
[2018-11-25 11:30] VITALS: BMI 24.1
--- NOTE | 2020-11-20 08:38 | BI_ITS ---
MAMMOGRAPHY - BILATERAL SCREENING 3-D TOMOSYNTHESIS REASON FOR EXAM: Female, 70 years old. SCREENING PERTINENT HISTORY: No significant family history. TECHNIQUE: 2-D mammograms and 3-D Tomosynthesis of the breast (s) were performed. CAD was performed. COMPARISON: 11/19/2019 FINDINGS: The breast composition is composed of scattered fibroglandular density. Scattered benign calcifications are seen. No dense spiculated masses or suspicious microcalcifications are identified. No architectural distortion is identified. There is no skin thickening or retraction. There has been no significant change since the prior study. BI/SCRN MAMM (CAD)W/VANDANA BILAT IMPRESSION: No mammographic signs of malignancy. Routine yearly mammograms recommended. ASSESSMENT CATEGORY: BIRADS Category 1: Negative. A letter regarding these results will be sent to the patient by the facility within 30 days. FOLLOW UP RECOMMENDATION: Yearly follow up mammogram recommended. (A) Approximately 10% of breast cancers are not detected by mammography. A normal mammogram should not delay biopsy of a clinically suspicious abnormality. Electronically Signed: Chano Aragon MD at 18:03 EDT Tel , Service support ,
== END ==
PROVIDERS: PCP Family Medicine; Referring Provider Family Medicine; Visit Provider Family Medicine
DX: Z12.31 Encounter for screening mammogram for malignant neoplasm of breast (principal)
CPT/HCPCS: 77063; 77067

== ENCOUNTER 2021-05-24 16:20 | Outpatient (CLI) | payer MEDICARE, BC, SELFPAY ==
--- NOTE | 2021-05-24 16:24 | RAD_ITS ---
EXAM: XR CERVICAL SPINE, 6 OR MORE VIEWS CLINICAL INDICATION: BACK PAIN TECHNIQUE: Frontal, lateral, oblique and flexion/extension views of the cervical spine. This report was created using Onfido report MAG Interactive technology. COMPARISON: None. FINDINGS: VERTEBRAE: C5-6: Loss of intervertebral disc height. There is endplate spondylosis of the vertebral body. Preservation of the normal cervical lordosis. No significant facet arthropathy. DISC SPACES: Unremarkable. Disc spaces are maintained. SOFT TISSUES: Unremarkable. No prevertebral soft tissue widening. LUNG APICES: Clear. RAD/Cerv Spine Obl/Flex/Ext Comp IMPRESSION: C5-6: Loss of intervertebral disc height. There is endplate spondylosis of the vertebral body. Electronically Signed: Luigi Johnson MD at 18:34 EDT Reading Location ID and State: [facility] / [place] , Service support ,
--- NOTE | 2021-05-24 16:24 | RAD_ITS ---
STUDY: X-RAY - LUMBAR SPINE REASON FOR EXAM: Female, 70 years old. LOW BACK PAIN BACK PAIN TECHNIQUE: XR Spine Lumbar Comp W/ Bending Min 6 Views COMPARISON: None FINDINGS: Normal lumbar lordosis. There is a dextroscoliosis of the lumbar spine. There is a normal alignment of the vertebrae. There is multilevel endplate spondylosis of the lumbar vertebrae. There is multi-level degenerative disc disease with multi-level disc space narrowing. Vacuum disc phenomenon. The soft tissue structures are unremarkable. RAD/L/S Spine w Bend Min 6 Vw IMPRESSION: Degenerative changes of the spine, as detailed above. Electronically Signed: Luigi Johnson MD at 18:34 EDT ,
--- NOTE | 2021-05-24 16:24 | RAD_ITS ---
EXAM: XR THORACIC SPINE, 2 VIEWS CLINICAL INDICATION: BACK PAIN TECHNIQUE: Frontal and lateral views of the thoracic spine. This report was created using Ezeecube report generation technology. COMPARISON: None. FINDINGS: VERTEBRAE: Unremarkable. Preserved vertebral body height. No fracture. No spondylolisthesis. Preservation of the normal thoracic kyphosis. No significant facet arthropathy. DISC SPACES: Unremarkable. Disc spaces are maintained. RAD/Thoracic Spine 2 Views IMPRESSION: No evidence of thoracic spinal fracture or spondylolisthesis. Electronically Signed: Luigi Johnson MD at 18:32 EDT ,
--- NOTE | 2021-05-24 16:25 | RAD_ITS ---
EXAM: XR MANDIBLE COMPLETE, 4 OR MORE VIEWS CLINICAL INDICATION: JAW PAIN TECHNIQUE: Frontal, oblique and lateral views of the mandible. This report was created using Speedshape report generation technology. COMPARISON: None. FINDINGS: DENTAL: No acute findings. BONES/JOINTS: Unremarkable. No fracture. No subluxation. No sclerotic or destructive changes observed. SOFT TISSUES: Unremarkable. No soft tissue swelling or gas. No radiopaque foreign body. RAD/Mandible Min 4 Views IMPRESSION: Negative mandible x-rays. Electronically Signed: Luigi Johnson MD at 18:48 EDT Reading Location ID and State: [facility] / [place] , Service support ,
[2021-05-24 17:34] LABS: Absolute Lymphocyte Count 1.52 X10^3/uL (0.83-4.51); Absolute Neutrophil Count 2.9 X10^3/uL (2.0-7.7); Basophil# 0.03 X10^3/uL; Basophil% 0.6 % (0-1); Eosinophil# 0.16 X10^3/uL; Eosinophils% 3.1 % (0-5); Hematocrit 37.1 % (37-47); Hemoglobin 12.1 g/dL (12.0-15.0); Lymphocyte # 1.52 X10^3/ul (0.83-4.51); Lymphocyte % 29.5 % (19-41); Mean Corp Hgb Conc 32.6 g/dL (32-36); Mean Corpuscular Hgb 30.6 pg (27.0-32.0); Mean Corpuscular Volume 93.9 fL (81-99); Mean Platelet Vol. 9.5 fl (6.2-12.0); Monocyte# 0.49 X10^3/uL; Monocyte% 9.5 % (0-10); NRBC Flagged by Analyzer 0 % (0-5); Neutrophil # 2.94 X10^3/uL (2.7-7.7); Neutrophil % 57.1 % (47-70); Platelet Count 254 K/mm3 (150-450); RBC Distribution Width CV 12.4 % (11.6-14.6); RBC Distribution Width SD 42.8 fl (35.1-43.9); Red Blood Count 3.95 M/mm3 (4.2-5.4); White Blood Count 5.2 K/mm3 (4.4-11.0)
[2021-05-24 17:56] LABS: Erythrocyte Sedimentation Rate 9 mm/hr (0-30)
== END 2021-05-24 23:59 | disposition home or self-care (01) ==
LOC: MTLAB 16:21
PROVIDERS: PCP Family Medicine; Referring Provider Family Medicine; Visit Provider Family Medicine
DX: R68.84 Jaw pain (principal); M47.816 Spondylosis without myelopathy or radiculopathy, lumbar region; M51.36 Other intervertebral disc degeneration, lumbar region; M48.061 Spinal stenosis, lumbar region without neurogenic claudication
CPT/HCPCS: 36415; 70110; 72052; 72070; 72114; 85025; 85652

== ENCOUNTER → 2021-11-09 | Outpatient (CLI) | payer MEDICARE, BC, SELFPAY ==
[2021-11-09 10:35] LABS: T4 Free Direct 1.24 ng/dL (0.76-1.46); Thyroid Stim Hormone (TSH) 1.94 uIU/mL (0.358-3.74)
== END | disposition home or self-care (01) ==
LOC: MTLAB 09:02
PROVIDERS: PCP Family Medicine; Referring Provider Family Medicine; Visit Provider Family Medicine
DX: E03.9 Hypothyroidism, unspecified (principal)
CPT/HCPCS: 36415; 84439; 84443

== ENCOUNTER → 2021-12-17 | Outpatient (CLI) | payer MEDICARE, BC, SELFPAY ==
--- NOTE | 2021-12-17 13:57 | BI_ITS ---
MAMMOGRAPHY - BILATERAL SCREENING REASON FOR EXAM: Female, 71 years old. Routine annual screening examination. PERTINENT HISTORY: Non-contributory. TECHNIQUE: Digital bilateral breast vandana (3D mammographic acquisition) in the CC and MLO projections. 2-D mediolateral oblique (MLO) and craniocaudad (CC) views of both breasts were obtained. CAD: Full Field Digital Mammography with Computer Added Detection was performed. COMPARISON: Comparison is made with prior study dated 11/20/2020 and 11/19/2019. FINDINGS: Breast Composition: There are scattered areas of fibroglandular density. There are no dominant masses or suspicious calcifications. Stable small benign-appearing bilateral axillary lymph nodes. No other significant abnormalities are identified. There has been no significant change since the prior study. BI/SCRN MAMM (CAD)W/VANDANA BILAT IMPRESSION: Stable bilateral screening mammogram. Yearly follow-up mammogram recommended. (A) ASSESSMENT CATEGORY: BIRADS Category 2: Benign. A letter regarding these results will be sent to the patient by the facility within 30 days. Approximately 10% of breast cancers are not detected by mammography. A normal mammogram should not delay biopsy of a clinically suspicious abnormality. [id number] Electronically Signed: Kingston Domingo MD at 15:10 EDT ,
== END | disposition home or self-care (01) ==
LOC: OPBI 13:55
PROVIDERS: PCP Family Medicine; Visit Provider Family Medicine
DX: Z12.31 Encounter for screening mammogram for malignant neoplasm of breast (principal)
CPT/HCPCS: 77063; 77067

== ENCOUNTER → 2022-01-03 | Outpatient (CLI) | payer MEDICARE, BC, SELFPAY | END | disposition home or self-care (01) | PROVIDERS: PCP Family Medicine; Visit Provider Family Medicine | DX: Z20.822 Contact with and (suspected) exposure to COVID-19 (principal) | CPT/HCPCS: 87635; U0003; U0005 ==

== ENCOUNTER → 2022-01-15 | Outpatient (CLI) | payer MEDICARE, BC, SELFPAY ==
[2022-01-15 12:27] LABS: Erythrocyte Sedimentation Rate 14 mm/hr (0-30)
[2022-01-15 12:29] LABS: Absolute Lymphocyte Count 1.35 X10^3/uL (0.83-4.51); Absolute Neutrophil Count 2.4 X10^3/uL (2.0-7.7); Basophil# 0.03 X10^3/uL; Basophil% 0.7 % (0-1); Eosinophil# 0.09 X10^3/uL; Eosinophils% 2.2 % (0-5); Hematocrit 41.8 % (37-47); Hemoglobin 13.9 g/dL (12.0-15.0); Lymphocyte # 1.35 X10^3/ul (0.83-4.51); Lymphocyte % 32.6 % (19-41); Mean Corp Hgb Conc 33.3 g/dL (32-36); Mean Corpuscular Hgb 32.5 pg (27.0-32.0); Mean Corpuscular Volume 97.7 fL (81-99); Monocyte% 7.2 % (0-10); NRBC Flagged by Analyzer 0 % (0-5); Neutrophil # 2.36 X10^3/uL (2.7-7.7); Neutrophil % 57.1 % (47-70); Platelet Count 395 K/mm3 (150-450); RBC Distribution Width CV 12.4 % (11.6-14.6); RBC Distribution Width SD 44.1 fl (35.1-43.9); Red Blood Count 4.28 M/mm3 (4.2-5.4); White Blood Count 4.1 K/mm3 (4.4-11.0)
[2022-01-15 12:56] LABS: Vitamin B12 744 pg/mL (211-911); Vitamin D,25 Hydroxy 65.6 ng/mL
[2022-01-15 13:22] LABS: ALB/GLOB Ratio 1.2 RATIO (0.9-2.4); AST(SGOT) 15 U/L (15-37); Alanine Aminotransfer ALT/SGPT 22 U/L (13-56); Albumin, Serum 3.4 g/dL (3.2-5.0); Alkaline Phosphatase 94 U/L (45-117); Anion Gap 6 (5-15); BUN 12 mg/dL (7-18); BUN/Creat Ratio 19.3 RATIO (10-20); CRP < 2.90 mg/L (0.0-3.0); Calcium,Total 8.9 mg/dL (8.5-10.1); Chloride 106 mmol/L (98-107); Cholesterol 284 mg/dL (200); Creatinine, Serum 0.62 mg/dL (0.55-1.02); EST Glomerular Filtration Rate 100 mL/min (>60); Est Glom Filt Rate - Afr Amer 121 mL/min (>60); Ferritin 124 ng/mL (8-252); Globulin 2.9 g/dL (2.2-4.2); Glucose 90 mg/dL (74-106); High Density Lipoprotein 103 mg/dL; Iron 116 ug/dL (50-170); Magnesium 2.3 mg/dL (1.6-2.6); Potassium 4.1 mmol/L (3.5-5.1); Protein, Total 6.3 g/dL (6.4-8.2); Rheumatoid Factor < 10.0 IU/mL (<15); Sodium Level 141 mmol/L (136-145); Triglycerides 77 mg/dL; Very Low Density Lipoprotein 15 mg/dL (5-40)
[2022-01-16 13:08] LABS: PROEL- A/G Ratio 1.4 (0.7-1.7); PROEL- Albumin 3.3 g/dL (2.9-4.4); PROEL- Alpha-1 Globulin 0.3 g/dL (0.0-0.4); PROEL- Alpha-2 Globulin 0.8 g/dL (0.4-1.0); PROEL- Beta Globulin 0.9 g/dL (0.7-1.3); PROEL- Gamma Globulin 0.5 g/dL (0.4-1.8); PROEL- Globulin, Total 2.4 g/dL (2.2-3.9); PROEL- TOTAL PROTEIN 5.7 g/dL (6.0-8.5)
[2022-01-22 13:08] LABS: Anti-Centromere B Ab <0.2 AI (0.0-0.9); Anti-Chromatin <0.2 AI (0.0-0.9); Anti-Jo <0.2 AI (0.0-0.9); Anti-Scleroderma-70 AB <0.2 AI (0.0-0.9); RNP Ab <0.2 AI (0.0-0.9); SJOGREN'S Anti-SS-A test < 0.2 AI (0.0-0.9); SJOGREN'S Anti-SS-B test < 0.2 AI (0.0-0.9); Smith Ab <0.2 AI (0.0-0.9)
[2022-01-23 11:01] LABS: ANTINUCLEAR ANTIBODIES DIRECT Positive (Negative); Anti-dsDNA Ab 12 IU/mL (0-9)
== END | disposition home or self-care (01) ==
PROVIDERS: PCP Family Medicine; Referring Provider Family Medicine; Visit Provider Family Medicine
DX: G62.9 Polyneuropathy, unspecified (principal); R76.8 Other specified abnormal immunological findings in serum; Z13.220 Encounter for screening for lipoid disorders
CPT/HCPCS: 36415; 80053; 80061; 82306; 82607; 82728; 83540; 83735; 84165; 84550; 85025; 85652; 86038; 86140; 86225; 86235; 86431

== ENCOUNTER → 2022-04-03 | Outpatient (CLI) | payer MEDICARE, BC, SELFPAY ==
[2022-04-05 17:19] LABS: Vitamin B1, Thiamine 122.7 nmol/L (66.5-200.0)
== END | disposition home or self-care (01) ==
PROVIDERS: PCP Family Medicine; Referring Provider Psychiatry & Neurology Neurology; Visit Provider Psychiatry & Neurology Neurology
DX: G62.9 Polyneuropathy, unspecified (principal)
CPT/HCPCS: 36415; 82746; 84425

== ENCOUNTER → 2022-05-08 | Outpatient (CLI) | payer MEDICARE, BC, SELFPAY ==
--- NOTE | 2022-05-08 15:32 | NEURO ---
NCS and/or EMG Patient Report Ordering Doctor: Kwaku Peterson DATE OF SERVICE: 05/08/22 Delfina presents for electrodiagnostic testing of the lower limbs. She reports stiffness and a tight feeling around both feet. She has pain and burning in both legs. Electrodiagnostic findings: Right peroneal motor nerve demonstrates normal distal latency, amplitude and conduction velocity. Left peroneal motor nerve demonstrates normal distal latency, amplitude and conduction velocity. Tibial motor responses demonstrate borderline reduced conduction velocity bilaterally. Normal tibial and peroneal F-wave. Prolonged H reflex bilaterally. Sensory responses are absent bilaterally in the sural and superficial peroneal nerves. On needle EMG, all muscles tested in the lower limbs, as well as the lumbar paraspinals, showed no evidence of denervation with normal motor unit action potentials. Electrodiagnostic impression: This is an abnormal study in the lower limbs. 1. Electrodiagnostic findings suggestive of peripheral polyneuropathy, sensory greater than motor. 2. No electrodiagnostic evidence is noted for lumbosacral radiculopathy.
[2022-05-12 04:06] LABS: Clam <0.10 kU/L (Class 0); Codfish <0.10 kU/L (Class 0); Corn <0.10 kU/L (Class 0); Egg, White <0.10 kU/L (Class 0); Milk (Cow) <0.10 kU/L (Class 0); Peanut <0.10 kU/L (Class 0); SCALLOP <0.10 kU/L (Class 0); Shrimp <0.10 kU/L (Class 0); Soybean <0.10 kU/L (Class 0); Walnut, (Food) <0.10 kU/L (Class 0); Wheat <0.10 kU/L (Class 0)
[2022-05-12 09:08] LABS: SESAME SEED <0.10 kU/L (Class 0)
== END | disposition home or self-care (01) ==
PROVIDERS: PCP Family Medicine; Referring Provider Psychiatry & Neurology Neurology; Visit Provider Psychiatry & Neurology Neurology
DX: T78.40XA Allergy, unspecified, initial encounter (principal); R25.2 Cramp and spasm
CPT/HCPCS: 36415; 86003; 95886; 95911

== ENCOUNTER → 2022-05-13 | Outpatient (CLI) | payer MEDICARE, BC, SELFPAY ==
--- NOTE | 2022-05-13 14:56 | RAD_ITS ---
INDICATION: CHRONIC COUGH EXAMINATION/TECHNIQUE: X-RAY - XR Chest 2 Views COMPARISON: March 08, 2019. FINDINGS: LINES/DEVICES: None. LUNGS: No consolidation, edema or effusion. No pneumothorax. MEDIASTINUM AND CARDIOVASCULAR STRUCTURES: Cardiac silhouette not enlarged. Central airways and mediastinal contour are unremarkable. BONES AND SOFT TISSUES: Scoliosis. RAD/Chest PA and Lateral IMPRESSION: No radiographic evidence of acute cardiopulmonary disease. Electronically Signed: Murali Helm DO at 23:53 EDT ,
== END | disposition home or self-care (01) ==
LOC: MTRAD 14:55
PROVIDERS: PCP Family Medicine; Referring Provider Family Medicine; Visit Provider Family Medicine
DX: R05.3 Chronic cough (principal)
CPT/HCPCS: 71046

== ENCOUNTER → 2022-07-18 | Outpatient (CLI) | payer MEDICARE, BC, SELFPAY ==
[2022-07-18 15:55] LABS: ALB/GLOB Ratio 1.1 RATIO (0.9-2.4); AST(SGOT) 30 U/L (15-37); Alanine Aminotransfer ALT/SGPT 30 U/L (13-56); Albumin, Serum 3.6 g/dL (3.2-5.0); Alkaline Phosphatase 108 U/L (45-117); Anion Gap 6 (5-15); BUN 20 mg/dL (7-18); BUN/Creat Ratio 31.9 RATIO (10-20); Calcium,Total 8.5 mg/dL (8.5-10.1); Chloride 106 mmol/L (98-107); Creatinine, Serum 0.63 mg/dL (0.55-1.02); EST Glomerular Filtration Rate 99 mL/min (>60); Est Glom Filt Rate - Afr Amer 120 mL/min (>60); Globulin 3.4 g/dL (2.2-4.2); Glucose 83 mg/dL (74-106); Sodium Level 139 mmol/L (136-145)
== END | disposition home or self-care (01) ==
LOC: MTLAB 11:27
PROVIDERS: PCP Family Medicine; Referring Provider Family Medicine; Visit Provider Family Medicine
DX: B35.1 Tinea unguium (principal)
CPT/HCPCS: 36415; 80053

== ENCOUNTER → 2022-08-09 | Outpatient (CLI) | payer MEDICARE, BC, SELFPAY ==
[2022-08-09 08:12] LABS: Mucous, Urine 0 SEEN /hpf (<or=2+)
--- NOTE | 2022-08-09 10:08 | RAD_ITS ---
EXAM: XR CHEST, 2 VIEWS CLINICAL INDICATION: PAIN TECHNIQUE: Frontal and lateral views of the chest. COMPARISON: 05/13/2022 FINDINGS: LUNGS AND PLEURAL SPACES: Unremarkable. No consolidation or edema. No pneumothorax. No effusion. HEART: Unremarkable. Cardiac silhouette not enlarged. MEDIASTINUM: Central airways and mediastinal contour are unremarkable. BONES/JOINTS: There is stable mild scoliotic deformity. SOFT TISSUES: Unremarkable. RAD/Chest PA and Lateral IMPRESSION: No acute findings in the chest. Electronically Signed: Lanre Duggan MD at 23:58 EDT ,
--- NOTE | 2022-08-09 10:08 | RAD_ITS ---
EXAM: XR THORACIC SPINE, 2 VIEWS CLINICAL INDICATION: PAIN TECHNIQUE: Frontal and lateral views of the thoracic spine. COMPARISON: No relevant prior studies available. FINDINGS: VERTEBRAE: Mild curvature of the thoracolumbar spine. Preserved vertebral body height. No fracture. No spondylolisthesis. No significant facet arthropathy. DISC SPACES: There is multilevel disc space narrowing. RAD/Thoracic Spine 2 Views IMPRESSION: No acute osseous abnormalities. There are degenerative changes with disc space narrowing. There is mild curvature of the thoracolumbar spine. Electronically Signed: Lanre Duggan MD at 23:58 EDT ,
[2022-08-09 10:24] LABS: Erythrocyte Sedimentation Rate 8 mm/hr (0-30)
[2022-08-09 10:25] LABS: Color, Urine Yellow (Yellow); Glucose, Dipstick Normal (Normal); Ketone-Dipstick 5 mg/dl (Negative); Leukocyte Esterase-Dipstick 25 /ul (Negative); Nitrite-Dipstick Negative (Negative); Occult Blood-Urine 10 /ul (Negative); Protein-Dipstick 30 mg/dl (Negative); Urine Bilirubin Dipstick Negative (Negative); Urine Clarity Sl. Cloudy (Clear); Urine Urobilinogen Normal (Normal)
[2022-08-09 10:26] LABS: Absolute Lymphocyte Count 0.94 X10^3/uL (0.83-4.51); Basophil# 0.03 X10^3/uL; Basophil% 0.9 % (0-1); Eosinophil# 0.06 X10^3/uL; Eosinophils% 1.8 % (0-5); Hemoglobin 13.7 g/dL (12.0-15.0); Lymphocyte # 0.94 X10^3/ul (0.83-4.51); Mean Corp Hgb Conc 32.6 g/dL (32-36); Mean Corpuscular Hgb 31.1 pg (27.0-32.0); Mean Corpuscular Volume 95.5 fL (81-99); Mean Platelet Vol. 9.9 fl (6.2-12.0); Monocyte# 0.32 X10^3/uL; Monocyte% 9.5 % (0-10); NRBC Flagged by Analyzer 0 % (0-5); Neutrophil # 2.01 X10^3/uL (2.7-7.7); Neutrophil % 59.8 % (47-70); Platelet Count 243 K/mm3 (150-450); RBC Distribution Width CV 12.4 % (11.6-14.6); RBC Distribution Width SD 43.7 fl (35.1-43.9); White Blood Count 3.4 K/mm3 (4.4-11.0)
[2022-08-09 10:31] LABS: Bacteria 1+ /hpf (None Seen); Red Blood Cells-Urine 0-5 SEEN /hpf (0-5); Squamous Epithelial Cells - UA 0-5 SEEN /hpf (5-10); Vitamin B12 575 pg/mL (211-911); Vitamin D,25 Hydroxy 61.9 ng/mL; White Blood Cells 0-5 SEEN /hpf (0-5)
[2022-08-09 10:44] LABS: ALB/GLOB Ratio 1.2 RATIO (0.9-2.4); AST(SGOT) 27 U/L (15-37); Alanine Aminotransfer ALT/SGPT 23 U/L (13-56); Albumin, Serum 3.6 g/dL (3.2-5.0); Alkaline Phosphatase 80 U/L (45-117); Anion Gap 7 (5-15); BUN 11 mg/dL (7-18); BUN/Creat Ratio 17.3 RATIO (10-20); CPK Total, Creatine Kinase 62 U/L (26-192); CRP < 2.90 mg/L (0.0-3.0); Calcium,Total 8.1 mg/dL (8.5-10.1); Chloride 105 mmol/L (98-107); Creatinine, Serum 0.64 mg/dL (0.55-1.02); EST Glomerular Filtration Rate 97 mL/min (>60); Est Glom Filt Rate - Afr Amer 118 mL/min (>60); Globulin 3.1 g/dL (2.2-4.2); Glucose 93 mg/dL (74-106); Magnesium 2.4 mg/dL (1.6-2.6); Potassium 3.9 mmol/L (3.5-5.1); Protein, Total 6.7 g/dL (6.4-8.2); Sodium Level 138 mmol/L (136-145); Thyroid Stim Hormone (TSH) 0.82 uIU/mL (0.358-3.74); Uric Acid 3.1 mg/dL (2.6-6.0)
[2022-08-13 12:09] LABS: ANTINUCLEAR ANTIBODIES DIRECT Positive (Negative); Anti-Centromere B Ab <0.2 AI (0.0-0.9); Anti-Chromatin <0.2 AI (0.0-0.9); Anti-Jo <0.2 AI (0.0-0.9); Anti-Scleroderma-70 AB <0.2 AI (0.0-0.9); Anti-dsDNA Ab 23 IU/mL (0-9); RNP Ab <0.2 AI (0.0-0.9); SJOGREN'S Anti-SS-A test < 0.2 AI (0.0-0.9); SJOGREN'S Anti-SS-B test < 0.2 AI (0.0-0.9); Smith Ab <0.2 AI (0.0-0.9); Vitamin D 1,25-Dihydroxy 71.5 pg/mL (24.8-81.5)
[2022-08-15 17:08] LABS: Albumin 3.5 g/dL (2.9-4.4); Alpha-1-Globulins 0.2 g/dL (0.0-0.4); Alpha-2-Globulins 0.7 g/dL (0.4-1.0); Angiotensin Convert Enzyme 87 U/L (14-82); CCP IgG Antibodies 0 units (0-19); Complement C3 135 mg/dL (82-167); Cytoplasmic Ab (C-ANCA) <1:20 titer (Neg:<1:20); Folates, RBC Test 1207 ng/mL (>498); Gamma Globulin 0.6 g/dL (0.4-1.8); HLA B27 Negative (.); Immunoglobulin A 86 mg/dL (64-422); Immunoglobulin G 603 mg/dL (586-1602); Immunoglobulin M 118 mg/dL (26-217); Lyme IgG P18 Ab Absent (.); Lyme IgG P23 Ab Absent (.); Lyme IgG P28 Ab Absent (.); Lyme IgG P30 Ab Absent (.); Lyme IgG P39 Ab Absent (.); Lyme IgG P41 Ab Absent (.); Lyme IgG P45 Ab Absent (.); Lyme IgG P58 Ab Absent (.); Lyme IgG P66 Ab Absent (.); Lyme IgG P93 Ab Absent (.); Lyme IgG WB Interpretation Negative (.); Lyme IgM P23 Ab Absent (.); Lyme IgM P39 Ab Absent (.); Lyme IgM P41 Ab Absent (.); Lyme IgM WB Interpretation Negative (.); Perinuclear Ab (P-ANCA) <1:20 titer (Neg:<1:20); VITAMIN B6 3.9 ug/L (3.4-65.2); t-Transglutaminase IgA <2 U/mL (0-3)
== END | disposition home or self-care (01) ==
PROVIDERS: PCP Family Medicine; Referring Provider Internal Medicine Rheumatology; Visit Provider Internal Medicine Rheumatology
DX: M50.30 Other cervical disc degeneration, unspecified cervical region (principal); M51.36 Other intervertebral disc degeneration, lumbar region; M89.9 Disorder of bone, unspecified; M94.9 Disorder of cartilage, unspecified; D72.819 Decreased white blood cell count, unspecified; R76.9 Abnormal immunological finding in serum, unspecified; R53.83 Other fatigue; M79.7 Fibromyalgia; E03.9 Hypothyroidism, unspecified; R29.2 Abnormal reflex; Z86.69 Personal history of other diseases of the nervous system and sense organs; Z79.899 Other long term (current) drug therapy; Z82.61 Family history of arthritis
CPT/HCPCS: 36415; 71046; 72070; 80053; 81001; 81374; 82164; 82306; 82550; 82607; 82652; 82747; 82784; 83516; 83735; 84165; 84207; 84425; 84443; 84550; 85014; 85025; 85652; 86038; 86140; 86160; 86200; 86225; 86235; 86256; 86334; 86617

== ENCOUNTER → 2022-08-16 | Outpatient (CLI) | payer MEDICARE, BC, SELFPAY ==
[2022-08-22 20:07] LABS: Pancreatic Elastase, Fecal > 500 (>200)
== END | disposition home or self-care (01) ==
PROVIDERS: PCP Family Medicine; Referring Provider Family Medicine; Visit Provider Family Medicine
DX: K58.9 Irritable bowel syndrome, unspecified (principal)
CPT/HCPCS: 82274; 82653; 83630; 87177; 87209; 87506

== ENCOUNTER → 2022-08-27 | Outpatient (CLI) | payer MEDICARE, BC, SELFPAY | END | disposition home or self-care (01) | LOC: LABSPEC 10:28 | PROVIDERS: PCP Family Medicine; Visit Provider Student in an Organized Health Care Education/Training Program | DX: N39.0 Urinary tract infection, site not specified (principal) | CPT/HCPCS: 87086 ==

== ENCOUNTER → 2022-09-17 | Outpatient (CLI) | payer MEDICARE, BC, SELFPAY ==
--- NOTE | 2022-09-17 12:26 | BD_ITS ---
STUDY: DUAL ENERGY X-RAY ABSORPTIOMETRY / DXA REASON FOR EXAM: Female, 71 years old. 733.00OsteoporosisBONE DENSITY REASON FOR EXAM TECHNIQUE: Bone Mineral Density (BMD) measurements of lumbar spine and bilateral hips were obtained. COMPARISON: Comparison is made with prior study dated September 12, 2020. FINDINGS: Lumbar Spine (L1-L4): g/cm2 (0.979) / T-score (-0.5) / Z-score (1.7) Findings are suggestive of normal bone density with a low fracture risk. Left Femur Total: g/cm2 (0.679) / T-score (-2.2) / Z-score (-0.5) Left Femoral Neck: g/cm2 (0.595) / T-score (-2.3) / Z-score (-0.3) Right Femur Total: g/cm2 (0.686) / T-score (-2.1) / Z-score (-0.4) Right Femoral Neck: g/cm2 (0.632) / T-score (-2.0) / Z-score (0.0) The T-Scores on the most recent prior examination were: Lumbar Spine (L1-L4): There has been improvement of bone density since the previous examination. Left Femur Total: which represents a worsening of 3.8%. Right Femur Total: which represents an improvement of 1.6%. BD/Dexa Bone Density Study IMPRESSION: The patient is considered osteopenic as outlined below according to World Vic Organization (WHO) criteria with a high fracture risk. There has been improvement of bone density since the previous examination. Reference Information: The T-score is the number of standard deviations above or below the standard which is normal for young adults at their peak bone mineral density. The World Health Organization (WHO) interprets the T-scores as follows: Above -1 Normal bone density Between -1 and -2.5 Osteopenia Equal to / or below -2.5 Osteoporosis As a practical clinical guideline, osteopenia may be graded as follows: Mild -1 through -1.5 Moderate -1.6 through -2.0 Severe -2.1 through -2.4 The Z-score is the number of standard deviations above or below age-matched controls. A Z-score of less than -1.5 would be considered abnormal. References: 1. NIH Osteoporosis and Related Bone Diseases www osteo.org 2. International Society for Clinical Densitometry www iscd.org 3. National Osteoporosis Foundation www nof.org Electronically Signed: Kingston Domingo MD at 7:42 EDT ,
== END | disposition home or self-care (01) ==
LOC: OPBD 11:59
PROVIDERS: PCP Family Medicine; Referring Provider Family Medicine; Visit Provider Family Medicine
DX: M81.0 Age-related osteoporosis without current pathological fracture (principal)
CPT/HCPCS: 77080

== ENCOUNTER 2022-09-23 15:00 | Outpatient (RCR) | payer MEDICARE, BC, SELFPAY ==
--- NOTE | 2022-08-19 19:09 | HP.PTEVAL ---
Patient's Visit Information Visit Information Visit Information: AYESHA FOLEY is a 71 year old F referred to Physical Therapy by Dr. Oscar Swain Jr., MD with a diagnosis of CERVICALAGIA,CERVICAL DDD,DORSALAGIA,LUMABR DDD. Date of Evaluation: 08/19/22 Physical Therapist: Chacho Estrada, PT, Cert MDT, OCS Visit Plan Frequency: 3x /Week Duration: 4 Weeks Plan: PT INTERVTIONS PROGRESS TO GTM PROGRAM ,DLS ,POSTURAL EX'S,CERVICAL EX'S /STRENGTHENING ,AND FLEXABLITY Subjective Subjective: This 71 y/o female presents to physical therapy with back and neck pain. Patient had neck and back pain for several years. Patient recently seen Rheumatology found to have RA factors and has developed neuropathy in feet. Patient has bloodwork Patient has symptoms on legs in legs which has progressively worse . Patient has lumbar pain with symmetrical lumbar . Aggravating factors walking/standing affects housework task affect function. Worse in the morning. Alleviating factors rest .Bowel/bladder-. Coughing /sneezing -. Patient pain affects sleeping. Cervical pain worse with repetition activities. 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 Patient has tinnitus/dizziness which is constant. Patient lower legs very sensitive too touch. Patient stress in personal life deaths and family issues. Patient pain affects QOL and function. Patient has had pain management in lumbar. Patient sees chiropractor 1x week. Patient has multiple comorbities to influence condition. Precautions osteoporosis. SOCIAL: VOCATION: retired Pain Bilateral Back: Pain Intensity (Out of 10): 4 Pain Intensity Range: 10 Bilateral Neck: Pain Intensity (Out of 10): 0 Objective Objective: POSTURE: mild forward posture GAIT: reciprocal pattern PALAPTION: tender UT/levator/scanes NEURO: denies paresthesia/tingling ,reflexes C5-6-7 2/3 ,L3-4,L4-5,L5-S1 2/3 CERVICAL ROM: flexion min loss ,lateral flexion mod loss ,rotation mod loss ,extension mod loss LUMBAR ROM: flexion min loss ,extension mod loss ,side glides min loss FLEXABLITY: min hamstrings MMT: quads/hams 4/5 ,hip flexion 4-/5 ,ankle 4/5 MMT: BUE 4/5 ,shoulder 4-/5 Special Tests C/S Radiculapathy - Left Upper limb tension test: Negative C/S Radiculapathy - Right Upper limb tension test: Negative C/S Radiculapathy - Left Spurlings: Negative C/S Radiculapathy - Right Spurlings: Negative C/S Radiculapathy - Left Cervical distraction: Negative C/S Radiculapathy - Right Cervical distraction: Negative C/S Radiculapathy - Left Relief test: Negative C/S Radiculapathy - Right Relief test: Negative Sharp Michelle: Negative Vertebral Artery Test: Negative Alar Ligament Test: Negative L/S Slump test left side: Negative L/S Slump test right side: Negative L/S Left Straight Leg Raise: Negative L/S Right Straight Leg Raise: Negative Balance/Special Test Scores Oswestry Low Back Score: 20 Goals Goal 1:: Patient to be I with HEP Goal Time Frame: 4-6 Weeks Goal 2:: Patient to demonstrate 50% improvement with less pain neck/back and improve function Goal Time Frame: 4-6 Weeks Goal 3:: Patient to improve cervical/lumbar ROM for function of recovery for ADLS and housework tasks Goal Time Frame: 4-6 Weeks Goal 4:: Patient to improve back oswestry score by 5 points to improve function. Goal Time Frame: 4-6 Weeks Goal 5:: Patient to improve ADLS and housework tasks with less pain proigressing to gym program Goal Time Frame: 4-6 Weeks Rehabilitation Potential Physical Therapy Diagnosis: This patient has cervical /neck pain with decrease ROM with h/o DDD ,pain with position ,motion testing affects ADLS and housework tasks thus benefit from skilled PT Rehabilitation Potential: Good Anticipated Interventions Patient/Client Instruction: Educate patient on: Condition and Plan of Care For the Purpose of:: To decrease pain, To increase ROM, To improve muscle performance and motor function, To improve ability to perform ADL's, To increase tolerance to activity/condition/position, To improve ability of physical actions for home/community/work/leisure, To improve health of tissue, To decrease soft tissue restriction, To increase flexibility/ROM and To improve endurance Therapeutic Exercise to Include: Strength training, Endurance training, Postural training, Flexibilty training, Active ROM and Dynamic Lumbar Stabilization For the Purpose of:: To decrease pain, To increase ROM, To increase tolerance to activity/condition/position, To improve ability of physical actions for home/community/work/leisure, To improve health of tissue, To decrease soft tissue restriction, To increase flexibility/ROM and To improve endurance Text: Thank you for the opportunity to evaluate your patient. For Medicare and Medicare HMO plans, please review the plan of care and approve it. It will need to be FAXED BACK to us at [phone] for Medicare purposes. For Medicare only, by signing this I certify the plan of care. Please let me know if there are questions or concerns regarding this plan of care. Physician Signature: Date:
--- NOTE | 2022-09-23 15:20 | HP.PTDCSUM ---
Discharge Summary D/C summary: It has been my pleasure to treat AYESHA FOLEY referred by Dr. Oscar Swain Jr., MD, with the diagnosis of CERVICALAGIA,CERVICAL DDD,DORSALAGIA,LUMABR DDD for a total of 8 visit(s). Discharge Date: 09/23/22 Please see the following information for a summary of their discharge status. Subjective Subjective: Loved ex's but caused soreness in back and arm Pain Bilateral Back: Pain Intensity (Out of 10): 5 Bilateral Neck: Pain Intensity (Out of 10): 0 Overall Improvement % Improvement: 10 Objective Objective/Function: Objective: POSTURE: mild forward posture GAIT: reciprocal pattern PALAPTION: tender UT/levator/scanes NEURO: denies paresthesia/tingling ,reflexes C5-6-7 2/3 ,L3-4,L4-5,L5-S1 2/3 CERVICAL ROM: flexion min loss ,lateral flexion mod/MIN loss ,rotation mod/MIN loss ,extension mod loss LUMBAR ROM: flexion min loss ,extension WFL loss ,side glides min loss FLEXABLITY: min hamstrings MMT: quads/hams 4/5 ,hip flexion 4-/5 ,ankle 4/5 MMT: BUE 4/5 ,shoulder 4-/5 Goals Goal 1:: Patient to be I with HEP Goal Progress: Progressing Goal 2:: Patient to demonstrate 50% improvement with less pain neck/back and improve function Goal Progress: Not Progressing Goal 3:: Patient to improve cervical/lumbar ROM for function of recovery for ADLS and housework tasks Goal Progress: Not Progressing Goal 4:: Patient to improve back oswestry score by 5 points to improve function. Goal Progress: Not Progressing Goal 5:: Patient to improve ADLS and housework tasks with less pain proigressing to gym program Goal Progress: Not Progressing Plan Plan: D/C RECOMMENDED RTD D/C Information Discharge Comments: D/C TO [facility] AT [facility] d/c sentence: If there are questions or concerns regarding this patient's physical therapy, please feel free to call me at [phone]. Thank you for the referral of this patient. Sincerely, Chacho Estrada, PT, Cert MDT, OCS Balance/Gait/Functional tests Balance/Special Test Scores Oswestry Low Back Score: 20
== END 2022-09-23 19:00 | disposition home or self-care (01) ==
LOC: PT 15:00
PROVIDERS: PCP Family Medicine; Referring Provider Internal Medicine Rheumatology; Visit Provider Internal Medicine Rheumatology
DX: M54.2 Cervicalgia (principal); M54.9 Dorsalgia, unspecified; M50.30 Other cervical disc degeneration, unspecified cervical region; M89.9 Disorder of bone, unspecified; M94.9 Disorder of cartilage, unspecified; M51.36 Other intervertebral disc degeneration, lumbar region; D72.819 Decreased white blood cell count, unspecified; R76.8 Other specified abnormal immunological findings in serum; E03.9 Hypothyroidism, unspecified; Z86.69 Personal history of other diseases of the nervous system and sense organs; Z82.61 Family history of arthritis; Z87.39 Personal history of other diseases of the musculoskeletal system and connective tissue; Z79.899 Other long term (current) drug therapy
CPT/HCPCS: 97110; 97162; 97530

== ENCOUNTER → 2022-10-22 | Outpatient (CLI) | payer MEDICARE, BC, SELFPAY ==
[2022-10-22 18:07] LABS: CRP < 2.90 mg/L (0.0-3.0)
[2022-10-24 14:09] LABS: Endomysial Antibody IgA Negative (Negative); Immunoglobulin A 70 mg/dL (64-422); t-Transglutaminase IgA <2 U/mL (0-3)
== END | disposition home or self-care (01) ==
LOC: MTLAB 15:06
PROVIDERS: PCP Family Medicine; Referring Provider Internal Medicine Gastroenterology; Visit Provider Internal Medicine Gastroenterology
DX: R19.7 Diarrhea, unspecified (principal)
CPT/HCPCS: 36415; 82784; 83516; 86140; 86255

== ENCOUNTER → 2022-12-30 | Outpatient (CLI) | payer MEDICARE, BC, SELFPAY ==
--- NOTE | 2022-12-30 09:54 | BI_ITS ---
MAMMOGRAPHY - BILATERAL SCREENING REASON FOR EXAM: Female, 72 years old. Routine annual screening examination. PERTINENT HISTORY: Non-contributory. TECHNIQUE: Digital bilateral breast vandana (3D mammographic acquisition) in the CC and MLO projections. 2-D mediolateral oblique (MLO) and craniocaudad (CC) views of both breasts were obtained. CAD: Full Field Digital Mammography with Computer Added Detection was performed. COMPARISON: Comparison is made with prior study dated December 17, 2021 and November 20, 2020. FINDINGS: Breast Composition: There are scattered areas of fibroglandular density. There are no dominant masses or suspicious calcifications. No other significant abnormalities are identified. There has been no significant change since the prior study. BI/SCRN MAMM (CAD)W/VANDANA BILAT IMPRESSION: Stable bilateral screening mammogram. Yearly follow-up mammogram recommended. (A) ASSESSMENT CATEGORY: BIRADS Category 1: Negative. A letter regarding these results will be sent to the patient by the facility within 30 days. Approximately 10% of breast cancers are not detected by mammography. A normal mammogram should not delay biopsy of a clinically suspicious abnormality. [id number] Electronically Signed: Kingston Domingo MD at 10:52 EST ,
== END | disposition home or self-care (01) ==
LOC: OPBI 09:53
PROVIDERS: PCP Family Medicine; Referring Provider Family Medicine; Visit Provider Family Medicine
DX: Z12.31 Encounter for screening mammogram for malignant neoplasm of breast (principal)
CPT/HCPCS: 77063; 77067

== ENCOUNTER → 2023-01-03 | Outpatient (CLI) | payer MEDICARE, BC, SELFPAY ==
[2023-01-03 11:09] LABS: Anion Gap 4 (5-15); BUN 18 mg/dL (7-18); BUN/Creat Ratio 25.6 RATIO (10-20); Calcium,Total 8.6 mg/dL (8.5-10.1); Chloride 106 mmol/L (98-107); EST Glomerular Filtration Rate 87 mL/min (>60); Est Glom Filt Rate - Afr Amer 105 mL/min (>60); Glucose 82 mg/dL (74-106); Potassium 4.1 mmol/L (3.5-5.1); Sodium Level 140 mmol/L (136-145); Thyroid Stim Hormone (TSH) 2.08 uIU/mL (0.358-3.74)
[2023-01-03 11:29] LABS: Vitamin D,25 Hydroxy 87.8 ng/mL
[2023-01-06 08:58] LABS: PTHIN 49.6 pg/mL (18.4-80.1)
== END | disposition home or self-care (01) ==
LOC: MTLAB 09:12
PROVIDERS: PCP Family Medicine; Referring Provider Family Medicine; Visit Provider Family Medicine
DX: E83.51 Hypocalcemia (principal)
CPT/HCPCS: 36415; 80048; 82306; 83970; 84443

== ENCOUNTER → 2023-01-07 | Outpatient (CLI) | payer MEDICARE, BC, SELFPAY ==
--- NOTE | 2023-01-07 14:21 | RAD_ITS ---
EXAM: XR ABDOMEN, 2 VIEWS CLINICAL INDICATION: irritable bowel syndrome TECHNIQUE: Frontal view of the abdomen/pelvis with upright view of the abdomen. COMPARISON: No relevant prior studies available. FINDINGS: LOWER THORAX: No acute pathology. INTRAPERITONEAL SPACE: No free air. GASTROINTESTINAL TRACT: Unremarkable. Non-obstructive. No bowel or stomach distention. ORGANS: Unremarkable as visualized. No organomegaly. No abnormal calcifications. BONES/JOINTS: No acute pathology. SOFT TISSUES: No acute pathology. RAD/Abd Inc Decub and/or Erect IMPRESSION: Unremarkable abdominal series. Electronically Signed: Lanre Duggan MD at 18:53 EST ,
== END | disposition home or self-care (01) ==
LOC: MTRAD 14:17
PROVIDERS: PCP Family Medicine; Referring Provider Family Medicine; Visit Provider Family Medicine
DX: K58.9 Irritable bowel syndrome, unspecified (principal)
CPT/HCPCS: 74019

== ENCOUNTER → 2023-04-10 | Outpatient (CLI) | payer MEDICARE, BC, SELFPAY ==
--- NOTE | 2023-04-10 14:36 | RAD_ITS ---
STUDY: X-RAY - PELVIS AND LEFT HIP REASON FOR EXAM: Female, 72 years old. Pain. TECHNIQUE: 3 views of the pelvis and left hip. COMPARISON: None. FINDINGS: There is a non-specific bowel gas pattern. Normal visualized soft tissue structures. Normal bilateral iliac wings, sacroiliac joints and visualized sacrum. Normal bilateral superior and inferior pubic rami. Normal pubic symphysis. Normal bilateral ischial tuberosities. Normal visualized femoral head. Normal acetabulum. Normal hip joint. There is no demonstrated fracture. RAD/HIP, UNI W/ Pelvis 2-3 Views IMPRESSION: Normal x-ray examination of the pelvis and left hip. Electronically Signed: Dalton Sol MD at 14:55 EST ,
--- OUTSIDE RECORDS SUMMARY | 2023-04-10 18:40 | XMS RPT_ITS | CCD ---
Author Name Unknown Address [address] [place] [address] Organization [facility] Care Team Providers Care Quality Compliance Manager Name Role Phone Anil Pa Unavailable Unavailable Billie RN, Zakiya Pacheco Unavailable Unavailable Anil Pa Unavailable Unavailable Haseeb, Ashley Joanne Unavailable Unavailab le Haseeb, Ashleymarium KwonJoanne Unavailable Unavailab Malvin Grewal Unavailable Unavailable HaseebAshley ro Joanne Unavailable Unavailab ulysses OmarReema hernandez M Unavailable Unavailable Malvin Douglas Unavailable Unavailable Haseeb, Ashley Joanne Unavailable Unavailab Reema Lowry M Unavailable Unavailable Monica Talamantes Unavailable Unavailable Malvin Douglas Unavailable Unavailable Ashley Membreno Joanne Unavailable Unavailab Monica Wilcox Unavailable Unavailable Jessica Bauman Unavailable Unavailable Malvin Douglas MD Primary Care Provider MALVIN DOUGLAS Primary Care UnavailCHANO Orozco Referring Unavailable CHANO MORALES Attending Unavailable MALVIN DOUGLAS Primary Care Unavailabl CHANO Rich Referring Unavailable CHANO MORALES Attending Unavailable MALVIN DOUGLAS Primary Care Unavailabl CHANO Rich Attending Unavailable Malvin Douglas MD Primary Care Provider MALVIN DOUGLAS Primary Care Unavailabl e CARYN SWAIN JR, JR Attending Unavaila MALVIN Cortez Primary Care Unavailabl e SELF, SELF Referring Unavailable MALVIN DOUGLAS Primary Care Unavailabl e SELF, SELF Referring Unavailable CARYN SWAIN JR, JR Attending Unavaila CARYN Bee JR, JR Attending Unavaila MALVIN Cortez Primary Care UnavailMALVIN Tim Referring Unavailabl e CARYN SWAIN JR, JR Attending Unavaila ble MALVIN DOUGLAS Primary Care Unavailabl e SELF, SELF Referring Unavailable MALVIN DOUGLAS Primary Care Unavailgeovanni e Allergies Allergy Classification Reported Allergen(s) Allergy Type Date of Onset Reaction(s) Facility (4 sources) meperidine drug allergy 1 Nausea [facility] Work Phone: (3 sources) Alendronate; Translations: [ALENDRONATE SODIUM] Drug Allergy 6 Intolerance [facility] (3 sources) cyclobenzaprine; Translations: [CYCLOBENZAPRINE HCL] Drug Allergy 6 Intolerance [facility] (3 sources) raNITIdine; Translations: [RANITIDINE HCL] Drug Allergy 6 Intolerance [facility] (3 sources) guaiFENesin / Pseudoephedrine Drug Allergy 3 Palpitations [facility] Medications Current Medications Medication Drug Class(es) Dates Sig (Normalized) Sig (Original) calcium carbonate 1250 mg oral tablet (2 sources) Start: 08-14-2022 take 1 tablet by mouth once daily calcium carbonate 1250 MG tablet Indications: Hypocalcemia 1 po q day 30 tablet 08/14/2022 Active celecoxib 200 mg oral capsule (1 source) Nonsteroidal Anti-inflammatory Drug take 1 capsule by mouth once daily Celecoxib 200 MG capsule Take 1 capsule by mouth daily. Active 1 ml denosumab 60 mg/ml prefilled syringe (5 sources) RANK Ligand Inhibitor denosumab (Prolia) 60 MG/ML Solution Prefilled Syringe injection Inject 1 mL under the skin. Active Completed/Discontinued Medications Medication Drug Class(es) Dates Sig (Normalized) Sig (Original) ACETAMINOPHEN-CODEI NE (6 sources) Opioid Agonist Start: 08-02-2011 End: 09-09-2016 TYLENOL WITH CODEINE #3 300-30 MG TABS As needed ACETAMINOPHEN-CODEIN E [id number] Mac Bynum MD Problems Active Problems Problem Classification Problem Date Documented Date Episodic/Chronic Cardiac dysrhythmias (4 sources) Ventricular premature beats; Translations: [Ventricular premature depolarization] Onset: 1 01-23-2011 Chronic Diabetes mellitus without complication (6 sources) Ketonuria; Translations: [Acetonuria] Onset: 3 09-25-2022 Episodic Diseases of white blood cells (8 sources) Leukopenia; Translations: [Decreased white blood cell count, unspecified] Onset: 3 08-07-2022 Chronic Disorders of lipid metabolism (4 sources) Hyperlipidemia; Translations: [Hyperlipidemia, unspecified] Onset: 1 01-23-2011 Chronic Esophageal disorders (1 source) Esophageal disorders Onset: 8 Genitourinary symptoms and ill-defined conditions (12 sources) Microscopic hematuria; Translations: [Other microscopic hematuria] Onset: 3 09-25-2022 Episodic Hemorrhoids (2 sources) Internal hemorrhoids; Translations: [Other hemorrhoids] 02-04-2006 Episodic Immunizations and screening for infectious disease (12 sources) Anti-nuclear factor positive; Translations: [Other specified abnormal immunological findings in serum] Onset: 3 08-07-2022 Episodic Menopausal disorders (2 sources) Menopausal symptom; Translations: [Menopausal and female climacteric states] Onset: 6 08-05-2005 Chronic Nonmalignant breast conditions (2 sources) Fibrocystic disease of breast; Translations: [Diffuse cystic mastopathy of unspecified breast] Onset: 1 02-03-2011 Chronic Other acquired deformities (4 sources) Thoracogenic scoliosis, thoracic region; Translations: [Thoracogenic scoliosis] Onset: 3 09-25-2022 Chronic Other acquired deformities (2 sources) Scoliosis of thoracic spine; Translations: [Scoliosis, unspecified] Onset: 3 09-25-2022 Chronic Other aftercare (6 sources) H/O: high risk medication; Translations: [Other chcf (current) drug therapy] Onset: 3 08-07-2022 Episodic Other aftercare (2 sources) Long-term current use of systemic steroid; Translations: [detention (current) use of systemic steroids] Onset: 4 04-02-2023 Episodic Other aftercare (2 sources) Other chcf (current) drug therapy; Translations: [Other terminal gauger (current) drug therapy] Onset: 3 Episodic Other aftercare (2 sources) detention (current) use of systemic steroids; Translations: [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] Onset: 4 Episodic Other and unspecified benign neoplasm (2 sources) Benign neoplasm of cranial nerve; Translations: [Benign neoplasm of cranial nerves] Onset: 9 03-08-2008 Chronic Other and unspecified benign neoplasm (1 source) Adenomatous polyp of colon ; Translations: [Benign neoplasm of colon, unspecified] Episodic Other connective tissue disease (7 sources) Fibromyalgia; Translations: [Fibromyalgia] Onset: 3 08-07-2022 Episodic Other connective tissue disease (6 sources) H/O: musculoskeletal disease; Translations: [Personal history of other diseases of the musculoskeletal system and connective tissue] Onset: 3 08-07-2022 Episodic Other connective tissue disease (6 sources) History of osteoporosis; Translations: [Personal history of other diseases of the musculoskeletal system and connective tissue] Onset: 3 08-07-2022 Episodic Other connective tissue disease (2 sources) Personal history of other diseases of the musculoskeletal system and connective tissue; Translations: [Personal history of other diseases of the musculoskeletal system and connective tissue] Onset: 3 Episodic Other ear and sense organ disorders (1 source) Sensorineural hearing loss, bilateral; Translations: [Sensorineural hearing loss, bilateral] Onset: 8 Chronic Other ear and sense organ disorders (2 sources) Sensorineural hearing loss; Translations: [Unspecified sensorineural hearing loss] Onset: 9 03-08-2008 Chronic Other eye disorders (2 sources) Dry eyes; Translations: [Dry eye syndrome of bilateral lacrimal glands] Onset: 4 04-02-2023 Episodic Other eye disorders (2 sources) Dry eye syndrome of bilateral lacrimal glands; Translations: [Dry eye syndrome of bilateral lacrimal glands] Onset: 4 Episodic Other liver diseases (2 sources) Abnormal levels of other serum enzymes; Translations: [Abnormal levels of other serum enzymes] Onset: 3 Episodic Other nervous system disorders (6 sources) History of clinical finding in subject; Translations: [Personal history of other diseases of the nervous system and sense organs] Onset: 3 08-07-2022 Episodic Other nervous system disorders (2 sources) Personal history of other diseases of the nervous system and sense organs; Translations: [Personal history of other diseases of the nervous system and sense organs] Onset: 3 Episodic Other nutritional; endocrine; and metabolic disorders (4 sources) Hypocalcemia; Translations: [Hypocalcemia] Onset: 3 Resolved: 4 09-25-2022 Chronic Other nutritional; endocrine; and metabolic disorders (1 source) Hypocalcemia; Translations: [Hypocalcemia] Onset: 3 Chronic Residual codes; unclassified (3 sources) Family history of malignant neoplasm of gastrointestinal tract; Translations: [Family history of malignant neoplasm of digestive organs] Episodic Residual codes; unclassified (6 sources) FH: Rheumatoid arthritis; Translations: [Family history of arthritis] Onset: 3 08-07-2022 Episodic Residual codes; unclassified (2 sources) Family history of arthritis; Translations: [Family history of arthritis] Onset: 3 Episodic Rheumatoid arthritis and related disease (3 sources) Ankylosing spondylitis; Translations: [Ankylosing spondylitis of unspecified sites in spine] Onset: 3 08-07-2022 Chronic Spondylosis; intervertebral disc disorders; other back problems (20 sources) Degeneration of cervical intervertebral disc; Translations: [Other cervical disc degeneration, unspecified cervical region] Onset: 3 08-07-2022 Chronic Systemic lupus erythematosus and connective tissue disorders (4 sources) Keratoconjunctivitis sicca; 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] Onset: 4 04-02-2023 Chronic Thyroid disorders (7 sources) Hypothyroidism; Translations: [Hypothyroidism, unspecified] Onset: 3 08-07-2022 Chronic Unclassified (2 sources) Sensorineural hearing loss, bilateral / H90.3(ICD-10) Onset: 7 Unclassified (2 sources) Other specified hearing loss, right ear / H91.8X1(ICD-10) Onset: 8 Unclassified (1 source) Hypothyroidism, unspecified / E03.9(ICD-10) Onset: 8 Unclassified (1 source) Unspecified sensorineural hearing loss / H90.5(ICD-10) Onset: 7 Past or Other Problems Problem Classification Problem Date Documented Date Episodic/Chronic Biliary tract disease (2 sources) Cholecystitis; Translations: [Cholecystitis, unspecified] Onset: 10-07-2013 10-07-2013 Episodic Cardiac dysrhythmias (4 sources) Palpitations; Translations: [Palpitations] Onset: 01-23-2011 01-23-2011 Episodic Esophageal disorders (2 sources) Esophagitis; Translations: [Esophagitis, unspecified] Onset: 07-25-2011 07-25-2011 Episodic Malaise and fatigue (6 sources) Fatigue; Translations: [Other fatigue] Onset: 08-07-2022 08-07-2022 Episodic Nonspecific chest pain (8 sources) Precordial pain; Translations: [Precordial pain] Onset: 01-23-2011 Resolved: 09-05-2016 09-05-2016 Episodic Other bone disease and musculoskeletal deformities (2 sources) Osteopenia; Translations: [Other specified disorders of bone density and structure, unspecified site] Onset: 01-23-2012 01-23-2012 Episodic Other bone disease and musculoskeletal deformities (4 sources) Disorder of skeletal system; Translations: [Disorder of bone, unspecified] Onset: 08-07-2022 08-07-2022 Episodic Other bone disease and musculoskeletal deformities (2 sources) Disorder of bone, unspecified; Translations: [Disorder of bone, unspecified] Onset: 08-07-2022 Episodic Other bone disease and musculoskeletal deformities (2 sources) Disorder of cartilage, unspecified; Translations: [Disorder of cartilage, unspecified] Onset: 08-07-2022 Episodic Other connective tissue disease (1 source) Fibromyalgia; Translations: [Fibromyalgia] Onset: 08-07-2022 Episodic Other nervous system disorders (4 sources) Abnormal reflex; Translations: [Abnormal reflex] Onset: 08-07-2022 08-07-2022 Episodic Other nervous system disorders (2 sources) Abnormal reflex; Translations: [Abnormal reflex] Onset: 08-07-2022 Episodic Courtney-; endo-; and myocarditis; cardiomyopathy (8 sources) Pericardial effusion; Translations: [Pericardial effusion (noninflammatory)] Onset: 01-23-2011 Resolved: 09-05-2016 09-05-2016 Episodic Residual codes; unclassified (1 source) Family history of malignant neoplasm of digestive organs; Translations: [Family history of malignant neoplasm of gastrointestinal tract] Onset: 02-04-2006 Episodic Spondylosis; intervertebral disc disorders; other back problems (12 sources) Neck pain; Translations: [Cervicalgia] Onset: 08-07-2022 08-07-2022 Episodic Results Test Name Value Interpretation Reference Range Facil ity Vital Signs Date Time Vital Sign Value Performing Clinician Facility 04-02-2023 10:04-0500 Body height 152.4 cm Caryn Swain Jr., DO Work Phone: [facility] 04-02-2023 10:04-0500 Body mass index (BMI) [Ratio] 24.22 kg/m2 Caryn Swain Jr., DO Work Phone: [facility] 04-02-2023 10:04-0500 Body weight 56.25 kg Caryn Swain Jr., DO Work Phone: [facility] 04-02-2023 10:04-0500 Diastolic blood pressure 70 mm[Hg] Caryn Swain Jr., DO Work Phone: [facility] 04-02-2023 10:04-0500 Systolic blood pressure 116 mm[Hg] Caryn Swain Jr., DO Work Phone: [facility] 09-25-2022 12:33-0400 Body height 153.7 cm Caryn Swain Jr., DO Work Phone: [facility] 09-25-2022 12:33-0400 Body mass index (BMI) [Ratio] 23.97 kg/m2 Caryn Swain Jr., DO Work Phone: [facility] 09-25-2022 12:33-0400 Body temperature 98.71 [degF] Caryn Swain Jr., DO Work Phone: [facility] 09-25-2022 12:33-0400 Body weight 56.6 kg Caryn Swain Jr., DO Work Phone: [facility] 09-25-2022 12:33-0400 Diastolic blood pressure 80 mm[Hg] Caryn Georgiashaylashavonne PatelKavita, DO Work Phone: [facility] 09-25-2022 12:33-0400 Systolic blood pressure 130 mm[Hg] Caryn Georgiajigar Nolen, DO Work Phone: [facility] 08-07-2022 11:37-0400 Body height 153.7 cm Caryn Georgiashaylashavonne , DO Work Phone: [phone] [place] [address] 08-07-2022 11:37-0400 Body mass index (BMI) [Ratio] 23.97 kg/m2 Caryn Georgiajigar Nolen, DO Work Phone: [phone])[phone] [address] 08-07-2022 11:37-0400 Body temperature 98.71 [degF] Caryn Swain Jr., DO Work Phone: [phone])[phone] [place] [address] 08-07-2022 11:37-0400 Body weight 56.61 kg Caryn Georgiajigar Nolen, DO Work Phone: [facility] 08-07-2022 11:37-0400 Diastolic blood pressure 78 mm[Hg] Caryn Georgiajigar Nolen, DO Work Phone: [facility] 08-07-2022 11:37-0400 Systolic blood pressure 122 mm[Hg] Caryn Swain Jr., DO Work Phone: [facility] 12-13-2021 08:17-0400 Body height 153.7 cm Chano Morales MD Work Phone: [facility] 12-13-2021 08:17-0400 Body temperature 98.29 [degF] Chano Morales MD Work Phone: [facility] 12-13-2021 08:17-0400 Body weight 55.34 kg Chano Morales MD Work Phone: [facility] 12-13-2021 08:17-0400 Diastolic blood pressure 78 mm[Hg] Chano Morales MD Work Phone: [facility] 12-13-2021 08:17-0400 Heart rate 98 /min Chano Morales MD Work Phone: [facility] 12-13-2021 08:17-0400 Respiratory rate 14 /min Chano Morales MD Work Phone: [facility] 12-13-2021 08:17-0400 SaO2% (BldA) [Mass fraction] 99 % Chano Morales MD Work Phone: [facility] 12-13-2021 08:17-0400 Systolic blood pressure 104 mm[Hg] Chano Morales MD Work Phone: [facility] 12-04-2021 11:09-0400 Diastolic blood pressure 67 mm[Hg] Chano Morales MD Work Phone: [facility] 12-04-2021 11:09-0400 Heart rate 67 /min Chano Morales MD Work Phone: [facility] 12-04-2021 11:09-0400 Respiratory rate 16 /min Chano Morales MD Work Phone: [facility] 12-04-2021 11:09-0400 SaO2% (BldA) [Mass fraction] 99 % Chano Morales MD Work Phone: [facility] 12-04-2021 11:09-0400 Systolic blood pressure 133 mm[Hg] Chano Morales MD Work Phone: [facility] 12-04-2021 09:32-0400 Body temperature 98.49 [degF] Chano Morales MD Work Phone: [facility] 12-04-2021 09:32-0400 Body weight 54.9 kg Chano Morales MD Work Phone: [facility] 09-09-2016 14:48-0400 BMI (Body Mass Index) 23.24 kg/m2 Anil Ocamp[facility] Work Phone: 09-09-2016 14:48-0400 BP Diastolic 76 mm[Hg] Anil [facility] Work Phone: 09-09-2016 14:48-0400 BP Systolic 106 mm[Hg] Anil [facility] Work Phone: 09-09-2016 14:48-0400 Height 154.94 cm Anil [facility] Work Phone: 09-09-2016 14:48-0400 Pulse (Heart Rate) 74 /min Anil [facility] Work Phone: 09-09-2016 14:48-0400 Respiratory Rate 18 /min Anil [facility] Work Phone: 09-09-2016 14:48-0400 Weight 55.79 kg Anil [facility] Work Phone: 09-11-2015 13:51-0400 BMI (Body Mass Index) 23.99 kg/m2 Zakiya [facility] Work Phone: 09-11-2015 13:51-0400 BP Diastolic 74 mm[Hg] Zakiya Wise RN [facility] Work Phone: 09-11-2015 13:51-0400 BP Systolic 106 mm[Hg] Zakiya Wise RN [facility] Work Phone: 09-11-2015 13:51-0400 BSA (Body Surface Area) 1.56 m2 Zakiya Wise RN [facility] Work Phone: 09-11-2015 13:51-0400 Pulse (Heart Rate) 68 /min Zakiya [facility] Work Phone: 09-11-2015 13:51-0400 Respiratory Rate 16 /min Zakiya Wise RN [facility] Work Phone: 09-11-2015 13:51-0400 Weight 57.61 kg Zakiya [facility] Work Phone: 08-12-2012 14:16-0400 Heart rate 70 /min Jessica Bauman [facility] Work Phone: 08-12-2012 14:16-0400 Heart rate 401 ms Jessica DeFinis [facility] Work Phone: 08-02-2011 15:13-0400 Height 154.94 cm Zakiya Wise RN [facility] Work Phone: Encounters Encounter Date Encounter Type Care Provider Facility Start: 10-13-2023 ambulatory MALVIN DOUGLAS [facility] Start: 04-02-2023 ambulatory CARYN SWAIN JR, JR [facility] Start: 04-02-2023 End: 04-02-2023 Office outpatient visit 25 minutes Caryn Swain DO Work Phone: [facility] Procedures Date Procedure Procedure Detail Performing Clinician Start: 09-25-2022 Laboratory test resu lt abnormal Abnormal serum KIMBERLY level Caryn Swain DO Work Phone: Start: 12-04-2021 Colonoscopy flx dx w/collj spec when pfrmd Chano Morales MD Work Phone: Start: 12-04-2021 Colonoscopy Chano steele MD Work Phone: Start: 08-24-2018 Mammography Chano steele MD Work Phone: Start: 05-16-2017 Anesthesia external middle & inner ear w/bx nos Ashley Membreno Start: 05-16-2017 Unlisted procedure i nner ear Ashley Membreno Start: 09-09-2016 End: 09-09-2016 Follow Up Appt 1 year Mac Serrato Start: 09-09-2016 End: 09-09-2016 PFM Mac Bynum MD Start: 09-11-2015 End: 08-27-2016 Follow Up Appt 1 year Mac Serrato Start: 09-11-2015 End: 08-27-2016 PFM Mac Bynum MD Start: 08-24-2014 End: 08-25-2014 Documentation of current medications Mac Bynum MD Start: 08-24-2014 End: 09-11-2015 Follow Up Appt 1 year Mac Serrato Start: 08-24-2014 End: 09-11-2015 PFM Mac Bynum MD Start: 08-18-2013 End: 08-18-2013 Follow Up Appt 1 year Mac Serrato Start: 08-18-2013 End: 08-27-2016 Follow Up Appt Other Mac Bynum MD Start: 08-18-2013 End: 08-18-2013 PFM Mac Bynum MD Start: 08-12-2012 End: 08-12-2012 Electrocardiogram, complete Mac Bynum MD Start: 08-12-2012 End: 08-12-2012 Follow Up Appt 1 year Mac Serrato Start: 08-12-2012 End: 08-12-2012 PFM Mac Bynum MD Start: 08-02-2011 End: 08-27-2016 Follow Up Appt 1 year Mac Serrato Start: 08-02-2011 End: 08-27-2016 Follow Up Appt Other Mac Bynum MD Laboratory test resu lt abnormal Abnormal serum KIMBERLY level Caryn Swain DO Work Phone: Plan of Treatment Date Care Activity Detail Author Start: 12-04-2026 Colonoscopy COLONOSCOPY [facility] Start: 12-04-2026 COLORECTAL CANCER SCREENING COLORECTAL CANCER SCREENING [facility] Start: 09-08-2024 Tetanus vaccination [facility] Start: 12-05-2023 Colonoscopy COLONOSCOPY [facility] Start: 12-05-2023 COLORECTAL CANCER SCREENING COLORECTAL CANCER SCREENING [facility] Start: 10-13-2023 End: 10-13-2023 Patient encounter procedure 10/13/2023 10:00 AM EDT Office Visit [facility] [address] [place] [address] Caryn Swain Jr., DO [address] [place] [address] [facility] Start: 09-14-2023 End: 04-02-2024 SCOTT MULTIPLEX SCRN WITH REFLEX SCOTT MULTIPLEX SCRN WITH REFLEX Lab Routine Hypothyroidism, unspecified type Keratoconjunctivitis sicca History of neuropathy Fibromyalgia Thoracic degenerative disc disease Thoracogenic scoliosis of thoracic region Lumbar degenerative disc disease DDD (degenerative disc disease), cervical Long-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 of 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-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 History of osteoporosis History of fibromyalgia Family history of rheumatoid arthritis Dry eyes Leukopenia, unspecified type Other proteinuria Positive double stranded DNA antibody test Ketonuria Other microscopic hematuria SCOTT positive Abnormal serum KIMBERLY level Expected: 09/14/2023 (Approximate), Expires: 04/02/2024 [facility] Immunizations Immunization Date Immunization Notes Care Provider Fa cility 11-15-2021 influenza virus vaccine, unspecified formulation Caryn Swain Jr., DO Work Phone: [facility] 03-29-2019 zoster vaccine, unspecified formulation Caryn Swain Jr., DO Work Phone: [facility] 01-23-2012 tetanus toxoid, reduced diphtheria toxoid, and acellular pertussis vaccine, adsorbed Chano Morales MD Work Phone: [facility] Work Phone: Payers Date Payer Category Payer Medicare [id number] 2018 Unknown [id number] 2014 Medicare [id number] 2014 Medicare [id number] 1950 Unknown [id number] 2.16.8 [id number] 1950 Unknown [id number] 2.16.8 [id number] 1950 Unknown [id number] 2.16.8 [id number] 1950 Unknown [id number] 2.16.8 [id number] 1950 Unknown [id number] 2.16.8 [id number] 1950 Unknown [id number] 2.16.8 [id number] Medicare [id number] Social History Date Type Detail Facility Start: 12-04-2021 End: 08-07-2022 Tobacco smoking status NCIS Ex-smoker [facility] History of tobacco use Current smoker [facility] Start: 12-04-2021 End: 08-07-2022 Tobacco use and exposure Smokeless tobacco non-user [facility] Start: 12-04-2021 End: 12-13-2021 Alcohol intake Current drinker of alcohol (finding) [facility] Start: 12-04-2021 Tobacco Comment 1977 [facility] Start: 07-01-2016 Alcohol Comment very rare [facility] Start: 1950 Sex Assigned At Not on file C [facility] Start: 11-24-2021 End: 12-13-2021 Exposure to SARS-CoV-2 (event) Not sure [facility] History of tobacco use Cigarette Smoker A [facility] Start: 08-07-2022 End: 09-25-2022 History of Social function [facility] Start: 08-07-2022 End: 09-25-2022 Tobacco use panel [facility] Clinical Notes 09-20-2021 to 04-02-2023 Caryn Swain Jr., DO - 04/02/2023 10:00 AM Magy Swain Jr., DO - 09/25/2022 12:30 PM Brett Swain Jr., DO - 08/07/2022 11:45 AM EDT Note Date & Type Note Facility 04-02-2023 History of Present illness Narrative Subjective History of Present Illness Prolia 2 started 2020. Prolia is every April and October. Presence of Pain: complains of pain/discomfort Pain Location: hip, left Select Pain Scale: DVPRS (Defense and Veterans Pain Rating Scale) (Adult-Cognitively Intact) DVPRS: Rest: 4- mild pain DVPRS: Activity: 4- mild pain Select Pain Scale: DVPRS (Defense and Veterans Pain Rating Scale) (Adult-Cognitively Intact) Pain Frequency: constant Pain Quality: aching. Total time spent in this encounter was 37 minutes. Patient seen as add on patient today. Nerve pain is better. Poor balance is the same. Weakness is no. She feels stronger that I saw her last. RLS is the same. Joint pain is hips. Back pain is a little bit and not bad. Muscle pain is nope. Patient is here today for a follow up, PRN at last appointment 09/19/2022. Patient states she is feeling better since she saw a Opto Mechanical Engineer who started her on Enzymes and low carb diet to control her IBS. Celebrex is helping her Fibromyalgia and is bothering her stomach just a little bit. No dry mouth Objective Review of Systems Constitutional: Negative. HENT: Negative. Eyes: Dry eyes Respiratory: Negative. Cardiovascular: Negative. Gastrointestinal: IBS Endocrine: Negative. Genitourinary: Negative. Musculoskeletal: Positive for arthralgias and back pain. RLS Skin: Negative. Allergic/Immunologic: Negative. Neurological: S/P surgery for acoustic neuroma. Poor Balance Hematological: Negative. Psychiatric/Behavioral: Negative. Vitals: Blood pressure 116/70, height 1.524 m (5'), weight 56.2 kg (124 lb). Physical Exam Vitals and nursing note reviewed. Constitutional: Appearance: Normal appearance. HENT: Head: Normocephalic and atraumatic. Comments: S/P surgery for acoustic neuroma Right Ear: External ear normal. Left Ear: External ear normal. Nose: Nose normal. Mouth/Throat: Mouth: Mucous membranes are moist. Pharynx: Oropharynx is clear. Eyes: Extraocular Movements: Extraocular movements intact. Conjunctiva/sclera: Conjunctivae normal. Pupils: Pupils are equal, round, and reactive to light. Comments: Glasses Dry eyes Cardiovascular: Rate and Rhythm: Normal rate and regular rhythm. Pulses: Radial pulses are 2+ on the right side and 2+ on the left side. Heart sounds: Normal heart sounds. Pulmonary: Effort: Pulmonary effort is normal. Breath sounds: Normal breath sounds. Abdominal: General: Bowel sounds are normal. Palpations: Abdomen is soft. Musculoskeletal: Right shoulder: Normal. Left shoulder: Normal. Right upper arm: Normal. Left upper arm: Normal. Right elbow: Normal. Left elbow: Normal. Right forearm: Normal. Left forearm: Normal. Right wrist: Decreased range of motion. Left wrist: Decreased range of motion. Right hand: Normal. Left hand: Normal. Cervical back: Neck supple. Right hip: Normal. Left hip: Normal. Right upper leg: Normal. Left upper leg: Normal. Right knee: Normal. Left knee: Normal. Right lower leg: Normal. Left lower leg: Normal. Right ankle: Normal. Left ankle: Normal. Skin: General: Skin is warm and dry. Neurological: Mental Status: She is alert and oriented to person, place, and time. Cranial Nerves: Cranial nerves 2-12 are intact. Motor: Motor function is intact. Psychiatric: Mood and Affect: Mood normal. Behavior: Behavior normal. Thought Content: Thought content normal. Judgment: Judgment normal. Neurological Exam Mental Status Alert. Oriented to person, place, and time. Cranial Nerves CN II: Vision test: Glasses Dry eyes. CN III, IV, : Extraocular movements intact bilaterally. Pupils equal round and reactive to light bilaterally. Assessment and Plan Would monitor CBC/LFT/Renal function every 6-12 months as long as SCOTT is positive No evidence of active CTD/CVD/Inflammatory arthritis/SLE/Drug induced lupus/Sarcoid No need to start high dose steroids or immune modulating therapy. At patient's request she will F/U with me on a PRN basis but now patient would like to Follow-up in 6 months Encounter Diagnoses Name Primary? Hypothyroidism, unspecified type Yes Keratoconjunctivitis sicca History of neuropathy Fibromyalgia Thoracic degenerative disc disease Thoracogenic scoliosis of thoracic region Lumbar degenerative disc disease DDD (degenerative disc disease), cervical Long-term use of high-risk medication detention current use of systemic steroids History of osteoporosis History of fibromyalgia Family history of rheumatoid arthritis Dry eyes Leukopenia, unspecified type Other proteinuria Positive double stranded DNA antibody test Ketonuria Other microscopic hematuria SCOTT positive Abnormal serum KIMBERLY level 1. Time was spent with the patient today in education in re: to all their medical conditions. A complete H&P&ROS was obtained and is either in this note or in the EHR. Please do not hesitate to contact me with any questions or concerns re: this patient. Past History Past medical, surgical, family, and social histories have been reviewed and updated with the patient today and are located elsewhere in the medical record. 2. No evidence of active CTD/CVD/Inflammatory arthritis/SLE/Drug induced lupus/Sarcoid 3. Uric acid was normal at 3.1 4. Calcium was low at 8.1 5. Prolia is every April and October form PCP 6. Osteoporosis under care of PCP 7. Hold Prolia month before and month after surgery. Hold prolia if infection and can restart once off of antiviral/ATB/Antifungal and free of infection. Hold Prolia if have open wound and can restart once wound has healed. 8. OTC tylenol Does what she needs it to do and declines stronger pain medication 9. WBC was low at 3.4 10. SCOTT was positive (times) 11. Monitor CBC/LFT/Renal func every 6-12 months as long as patient is on daily NSAID 12. Patient given educational material on fibromyalgia syndrome in the form of a pamphlet from the arthritis foundation. Patient told that generalized stretching and aerobic exercise would be the cornerstone of treatment. Patient would benefit from psych eval and treatment of any underlying depression and/or anxiety disorder. Patient would benefit from eval and F/U treatment by PMR and/or Chronic Pain Management 13. Rx given for PT: patient has been and states it made her worse although it helped her back and her legs are stronger and she loved the machines but the bands hurt her hands. She is going to do a HEP 14. CRP was negative at < 2.9 15. If Leukopenia continues rec: Hem/Onc eval 16. Would monitor CBC/LFT/Renal function every 6-12 months as long as SCOTT is positive 17. No evidence of active CTD/CVD/Inflammatory arthritis/SLE/Drug induced lupus/Sarcoid 18. ESR was normal at 14 19. Patient is seeing Chronic pain management 20. Negative RF, 21. Lab on or about 09/14/2023 22. UA showed 5 mg/dl of Ketone and 30 mg/dl protein and + blood and no RBC/HPF. If continues would rec: nephology eval. 23. Neuro F/U per Dr. Cheek 24. Duloxitine stopped due to N/V/flu like illness. 25. dsDNA was elevated at 23 26. Negative SSA., SSB, Chromcatin, Michelle-1, Scleroderma, VAMP MAKER, Leal, Centromere, ANCA, HLA-B27, Celiac, CCP, Lyme, 27. C3 was normal at 135 28. C4 was normal at 28 29. KIMBERLY level was elevated at 87 with normal CXR. 30. Patient is going to F/U with PCP for referral to chronic pain management and is now seeing chronic pain management 31. At patient's request will F/U with me on a PRN basis but now patient would like to Follow-up with me in 6 months 32. Thank you for allowing me to participate in the care of your patient. With your permission I would like to F/U with your patient. documented in this encounter [facility] 09-25-2022 History of Present illness Narrative History of Present Illness Prolia 2 started 2020. Prolia is every April and October. Presence of Pain: complains of pain/discomfort Select Pain Scale: DVPRS (Defense and Veterans Pain Rating Scale) (Adult-Cognitively Intact) DVPRS: Rest: 4- mild pain Select Pain Scale: DVPRS (Defense and Veterans Pain Rating Scale) (Adult-Cognitively Intact). Total time spent in this encounter was 45 minutes. Energy level is ok. Nerve pain is worse. Poor balance is the same. Weakness is nothing different than before. RLS is better with the Mag. Joint pain is yes. A lot of joint pain . Back pain is the worse and she can hardly get out of bed in the AM. Patient is here for 3 week F/U. Patient states that she has not been doing well since her last visit. States that therapy is making her feel worse. Muscle pain is yes she thinks the back is a lot og muscle pain . Neck pain is no. Neck is good. Patient has had a serious adverse event to medication which could have increased morbidity or mortality. Review of Systems Constitutional: Negative. HENT: Negative. Eyes: Negative. Respiratory: Negative. Cardiovascular: Negative. Gastrointestinal: Negative. Endocrine: Negative. Genitourinary: Negative. Musculoskeletal: Positive for arthralgias, back pain and myalgias. RLS Skin: Negative. Allergic/Immunologic: Negative. Neurological: Positive for weakness. Nerve pain S/P surgery for acoustic neuroma. Poor Balance Hematological: Negative. Psychiatric/Behavioral: Negative. Vitals: Blood pressure 130/80, temperature 98.7 F (37.1 C), temperature source Temporal, height 1.537 m (5' 0.5 ), weight 56.6 kg (124 lb 12.5 oz). Physical Exam Vitals and nursing note reviewed. Constitutional: Appearance: Normal appearance. HENT: Head: Normocephalic and atraumatic. Comments: S/P surgery for acoustic neuroma Right Ear: External ear normal. Left Ear: External ear normal. Nose: Nose normal. Mouth/Throat: Mouth: Mucous membranes are moist. Pharynx: Oropharynx is clear. Eyes: Extraocular Movements: Extraocular movements intact. Conjunctiva/sclera: Conjunctivae normal. Pupils: Pupils are equal, round, and reactive to light. Comments: glasses Cardiovascular: Rate and Rhythm: Normal rate and regular rhythm. Pulses: Carotid pulses are 2+ on the right side and 2+ on the left side. Radial pulses are 2+ on the right side and 2+ on the left side. Heart sounds: Normal heart sounds. Comments: No subclavian or carotid bruits. Did not take off shoes for exam. Pulmonary: Effort: Pulmonary effort is normal. Breath sounds: Normal breath sounds. Abdominal: General: Bowel sounds are normal. Palpations: Abdomen is soft. Musculoskeletal: Right shoulder: Decreased range of motion. Left shoulder: Decreased range of motion. Right upper arm: Normal. Left upper arm: Normal. Right elbow: Normal. Left elbow: Normal. Right forearm: Normal. Left forearm: Normal. Right wrist: Decreased range of motion. Left wrist: Decreased range of motion. Right hand: Decreased strength. Left hand: Decreased strength. Cervical back: Neck supple. Decreased range of motion. Thoracic back: Tenderness present. Lumbar back: Tenderness present. Decreased range of motion. Right hip: Normal. Left hip: Normal. Right upper leg: Normal. Left upper leg: Normal. Right knee: Normal. Left knee: Normal. Right lower leg: Normal. Left lower leg: Normal. Right ankle: Normal. Left ankle: Normal. Comments: fibro tender points Skin: General: Skin is warm and dry. Neurological: Mental Status: She is alert and oriented to person, place, and time. Cranial Nerves: Cranial nerves 2-12 are intact. Motor: Weakness present. Gait: Gait is intact. Deep Tendon Reflexes: Reflex Scores: Tricep reflexes are 2+ on the right side and 2+ on the left side. Bicep reflexes are 2+ on the right side and 2+ on the left side. Brachioradialis reflexes are 2+ on the right side and 2+ on the left side. Patellar reflexes are 2+ on the right side and 2+ on the left side. Achilles reflexes are 0 on the right side and 0 on the left side. 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 Behavior: Behavior normal. Thought Content: Thought content normal. Judgment: Judgment normal. Neurological Exam Mental Status Alert. Oriented to person, place, and time. Cranial Nerves CN II: Vision test: glasses. CN III, IV, : Extraocular movements intact bilaterally. Pupils equal round and reactive to light bilaterally. Reflexes Right Left Brachioradialis 2+ 2+ Biceps 2+ 2+ Triceps 2+ 2+ Patellar 2+ 2+ Achilles 0 0 Gait Normal gait. 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 Assessment and Plan Would monitor CBC/LFT/Renal function every 6-12 months as long as SCOTT is positive No evidence of active CTD/CVD/Inflammatory arthritis/SLE/Drug induced lupus/Sarcoid No need to start high dose steroids or immune modulating therapy. At patient's request she will F/U with me on a PRN basis. I return patient to your care Encounter Diagnoses Name Primary? Hypocalcemia Yes Fibromyalgia History of neuropathy DDD (degenerative disc disease), cervical Lumbar degenerative disc disease Thoracogenic scoliosis of thoracic region Thoracic degenerative disc disease Leukopenia, unspecified type Abnormal serum KIMBERLY level SCOTT positive Family history of rheumatoid arthritis Other microscopic hematuria History of fibromyalgia History of osteoporosis Ketonuria Long-term use of high-risk medication Positive double stranded DNA antibody test Other proteinuria 1. Time was spent with the patient today in education in re: to all their medical conditions. A complete H&P&ROS was obtained and is either in this note or in the EHR. Please do not hesitate to contact me with any questions or concerns re: this patient. Past History Past medical, surgical, family, and social histories have been reviewed and updated with the patient today and are located elsewhere in the medical record. 2. No evidence of active CTD/CVD/Inflammatory arthritis/SLE/Drug induced lupus/Sarcoid 3. Uric acid is normal at 3.1 4. Calcium is low at 8.1 5. Prolia is every April and October form PCP 6. Osteoporosis under care of PCP 7. Hold Prolia month before and month after surgery. Hold prolia if infection and can restart once off of antiviral/ATB/Antifungal and free of infection. Hold Prolia if have open wound and can restart once wound has healed. 8. OTC tylenol Does what she needs it to do and declines stronger pain medication 9. WBC was low at 4.1 and still is at 3.4 10. SCOTT was positive (times) 11. Patient started on Calcium 12. Patient given educational material on fibromyalgia syndrome in the form of a pamphlet from the arthritis foundation. Patient told that generalized stretching and aerobic exercise would be the cornerstone of treatment. Patient would benefit from psych eval and treatment of any underlying depression and/or anxiety disorder. Patient would benefit from eval and F/U treatment by PMR and/or Chronic Pain Management 13. Rx given for PT: patient has been and states it made her worse although it helped her back and her legs are stronger and she loved the machines but the bands hurt her hands. She is going to do a HEP 14. CRP was negative at < 2.9 and still is at < 2.9 15. If Leukopenia continues rec: Hem/Onc eval 16. Would monitor CBC/LFT/Renal function every 6-12 months as long as SCOTT is positive 17. No evidence of active CTD/CVD/Inflammatory arthritis/SLE/Drug induced lupus/Sarcoid 18. ESR is normal at 14 19. If patient continues to have trouble with back pain would rec: eval by spinal surgery and/or chronic pain management 20. Negative RF, 21. If neck pain continues rec: eval by spinal surgery and/or chronic pain management 22. UA shows 5 mg/dl of Ketone and 30 mg/dl protein and + blood and no RBC/HPF. If continues would rec: nephology eval. 23. Neuro F/U per Dr. Cheek 24. Duloxitine stopped due to N/V/flu like illness. 25. dsDNA is elevated at 23 26. Negative SSA., SSB, Chromcatin, Michelle-1, Scleroderma, VAMP MAKER, Leal, Centromere, ANCA, HLA-B27, Celiac, CCP, Lyme, 27. C3 is normal at 135 28. C4 is normal at 28 29. KIMBERLY level is elevated at 87 with normal CXR. 30. Patient is going to F/U with PCP for referral to chronic pain management 31. At patient's request will F/U with me on a PRN basis. 32. I return patient to your care. documented in this encounter [facility] 08-07-2022 History of Present illness Narrative History of Present Illness Prolia 2 started 2020. Prolia is every April and October. Presence of Pain: complains of pain/discomfort Select Pain Scale: DVPRS (Defense and Veterans Pain Rating Scale) (Adult-Cognitively Intact) DVPRS: Rest: 3- mild pain Select Pain Scale: DVPRS (Defense and Veterans Pain Rating Scale) (Adult-Cognitively Intact). Total time spent in this encounter was 47 minutes. Patient is being evaluated for an unstable chronic illness that increase morbidity and mortality. Due to patient's coexisting health problems and co-morbidities treatment is and will be very difficult. Patient was referred here by Dr. Douglas for RA. Patient states she is having a lot of muscle and nerve pain all over body. States has flare up in middle of upper back that radiates to chest. States she has neuropathy and sees Neurologist for it. Patient is here for abnormal blood work and has been told she has fibro, Review of Systems Constitutional: Positive for fatigue. HENT: Negative. Eyes: Negative. Respiratory: Negative. Cardiovascular: Negative. Gastrointestinal: Negative. Endocrine: Negative. Genitourinary: Negative. Musculoskeletal: Positive for back pain, myalgias, neck pain and neck stiffness. RLS Skin: Negative. Allergic/Immunologic: Negative. Neurological: Positive for weakness. Nerve pain S/P surgery for acoustic neuroma. Poor Balance Hematological: Negative. Psychiatric/Behavioral: Negative. Vitals: Blood pressure 122/78, temperature 98.7 F (37.1 C), temperature source Temporal, height 1.537 m (5' 0.5 ), weight 56.6 kg (124 lb 12.8 oz). Physical Exam Vitals and nursing note reviewed. Constitutional: Appearance: Normal appearance. HENT: Head: Normocephalic and atraumatic. Comments: S/P surgery for acoustic neuroma Right Ear: External ear normal. Left Ear: External ear normal. Nose: Nose normal. Mouth/Throat: Mouth: Mucous membranes are moist. Pharynx: Oropharynx is clear. Eyes: Extraocular Movements: Extraocular movements intact. Conjunctiva/sclera: Conjunctivae normal. Pupils: Pupils are equal, round, and reactive to light. Comments: glasses Cardiovascular: Rate and Rhythm: Normal rate and regular rhythm. Pulses: Carotid pulses are 2+ on the right side and 2+ on the left side. Radial pulses are 2+ on the right side and 2+ on the left side. Heart sounds: Normal heart sounds. Comments: No subclavian or carotid bruits. Did not take off shoes for exam. Pulmonary: Effort: Pulmonary effort is normal. Breath sounds: Normal breath sounds. Abdominal: General: Bowel sounds are normal. Palpations: Abdomen is soft. Musculoskeletal: Right shoulder: Decreased range of motion. Left shoulder: Decreased range of motion. Right upper arm: Normal. Left upper arm: Normal. Right elbow: Normal. Left elbow: Normal. Right forearm: Normal. Left forearm: Normal. Right wrist: Decreased range of motion. Left wrist: Decreased range of motion. Right hand: Decreased strength. Left hand: Decreased strength. Cervical back: Neck supple. Decreased range of motion. Thoracic back: Tenderness present. Lumbar back: Tenderness present. Decreased range of motion. Right hip: Normal. Left hip: Normal. Right upper leg: Normal. Left upper leg: Normal. Right knee: Normal. Left knee: Normal. Right lower leg: Normal. Left lower leg: Normal. Right ankle: Normal. Left ankle: Normal. Comments: fibro tender points Skin: General: Skin is warm and dry. Neurological: Mental Status: She is alert and oriented to person, place, and time. Cranial Nerves: Cranial nerves 2-12 are intact. Motor: Weakness present. Gait: Gait is intact. Deep Tendon Reflexes: Reflex Scores: Tricep reflexes are 2+ on the right side and 2+ on the left side. Bicep reflexes are 2+ on the right side and 2+ on the left side. Brachioradialis reflexes are 2+ on the right side and 2+ on the left side. Patellar reflexes are 2+ on the right side and 2+ on the left side. Achilles reflexes are 0 on the right side and 0 on the left side. 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 Behavior: Behavior normal. Thought Content: Thought content normal. Judgment: Judgment normal. Neurological Exam Mental Status Alert. Oriented to person, place, and time. Cranial Nerves CN II: Vision test: glasses. CN III, IV, : Extraocular movements intact bilaterally. Pupils equal round and reactive to light bilaterally. Reflexes Right Left Brachioradialis 2+ 2+ Biceps 2+ 2+ Triceps 2+ 2+ Patellar 2+ 2+ Achilles 0 0 Gait Normal gait. 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 Assessment and Plan Would monitor CBC/LFT/Renal function every 6-12 months as long as SCOTT is positive No evidence of active CTD/CVD/Inflammatory arthritis/SLE/Drug induced lupus. Encounter Diagnoses Name Primary? Cervicalgia Yes Dorsalgia History of neuropathy DDD (degenerative disc disease), cervical Disorder of bone and cartilage Lumbar degenerative disc disease Leukopenia, unspecified type SCOTT positive Family history of rheumatoid arthritis Fatigue, unspecified type Fibromyalgia History of fibromyalgia History of osteoporosis Long-term use of high-risk medication Hypothyroidism, unspecified type Abnormal reflexes of lower extremity 1. Time was spent with the patient today in education in re: to all their medical conditions. A complete H&P&ROS was obtained and is either in this note or in the EHR. Please do not hesitate to contact me with any questions or concerns re: this patient. Past History Past medical, surgical, family, and social histories have been reviewed and updated with the patient today and are located elsewhere in the medical record. 2. Thank you for allowing me to participate in the care of your patient. With your permission I would like to F/U with your patient. 3. Differenetial Diagnosis includes but is not limited to Autoimmune Disease, Connective Tissue Disease, Collagen Vascular Disorder, Infection, and Neoplasm. 4. Lab and x-ray and F/U with me in 3 weeks 5. Prolia is every April and October form PCP 6. Osteoporosis under care of PCP 7. Hold Prolia month before and month after surgery. Hold prolia if infection and can restart once off of antiviral/ATB/Antifungal and free of infection. Hold Prolia if have open wound and can restart once wound has healed. 8. OTC tylenol Does what she needs it to do and declines stronger pain medication 9. WBC is low at 4.1 10. SCOTT is positive 11. Patient given educational material on SLE in the form of a pamphlet from the arthritis foundation. Different treatment options were discussed with the patient today. 12. Patient given educational material on fibromyalgia syndrome in the form of a pamphlet from the arthritis foundation. Patient told that generalized stretching and aerobic exercise would be the cornerstone of treatment. Patient would benefit from psych eval and treatment of any underlying depression and/or anxiety disorder. Patient would benefit from eval and F/U treatment by PMR and/or Chronic Pain Management 13. Rx given for PT. 14. CRP is negative at < 2.9 15. Patient given educational material on SLE in the form of a pamphlet from the arthritis foundation. Different treatment options were discussed with the patient today. 16. Would monitor CBC/LFT/Renal function every 6-12 months as long as SCOTT is positive 17. No evidence of active CTD/CVD/Inflammatory arthritis/SLE/Drug induced lupus. 18. ESR is normal at 14 19. If patient continues to have trouble with back pain would rec: eval by spinal surgery and/or chronic pain management 20. Negative RF, 21. If neck pain continues rec: eval by spinal surgery and/or chronic pain management 22. Patient given educational material on OA in the from of a pamphlet from the arthritis foundation. Patient told that PT and keeping ideal body wt would be the cornerstone of treatment 23. Neuro F/U per Dr. Cheek documented in this encounter [facility] 12-13-2021 Note HNO ID: [id number] Author: Chano Morales MD Service: ? Author Type: Physician Type: Progress Notes Filed: 12/13/2021 9:14 AM Note Text: FOLLOW UP VISIT - ENDOSCOPY NAME: Ayesha Segovia [facility] NO.: [id number] DATE OF SERVICE: 12/13/2021 : 1950 REFERRING PHYSICIAN: Malvin Douglas MD Ayesha is a patient I am following for a personal history of colon polyps. The patient is a 70 year old female referred for endoscopy. Ayesha notes no history of colon complaints. The patient notes no history of upper GI complaints. Ayesha has undergone prior endoscopy. She underwent colonoscopy 5 years previously which was unremarkable. She has a first-degree family history of colon cancer. The patient is being seen by me at the request of Dr. Malvin Douglas MD for my opinion and advice regarding high risk screening colonoscopy. I performed lower endoscopy on December 04, 2021. The patient was found to have: Impression: - One small polyp in the proximal descending colon, removed with a cold biopsy forceps. Resected and retrieved. - One 7 mm polyp in the proximal rectum, removed piecemeal using a cold snare. Resected and retrieved. Clips (MR conditional) were placed. 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 - The examination was otherwise normal on direct and retroflexion views. Pathology demonstrated: FINAL DIAGNOSIS A. Descending colon polyp, biopsy: - Tubular adenoma. B. Rectal polyp, biopsy: - Tubular adenoma. The patient notes no complaints since the procedure. In reviewing the images my belief was the polyp was actually larger than I noted in endoscopy report. The aggregate size of the polyp per the pathologist was approximately 2 cm it was removed piecemeal fashion. VITALS: Blood pressure 104/78, pulse 98, temperature 36.8 ?C (98.3 ?F), resp. rate 14, height 153.7 cm (5' 0.5 ), weight 55.3 kg (122 lb), SpO2 99 %. On examination, the abdomen is benign. Assessment IMPRESSION: 2 polyps larger rectal polyp removed in piecemeal fashion both adenomatous PLAN: You were found to have adenomatous colon polyps. I recommend you undergo repeat endoscopy in 2 years. If you note bleeding, change in bowel habits, or other suspicious colon related symptoms before that time, those symptoms should be evaluated as necessary. If you have any difficulties or concerns, you should contact our office immediately. Diagnoses: (D12.6) Adenomatous polyp of colon, unspecified part of colon (primary encounter diagnosis) Return to Clinic: The patient is instructed to follow-up with me as needed. Chano Morales MD [facility] 12-13-2021 History of Present illness Narrative FOLLOW UP VISIT - ENDOSCOPY NAME: Ayesha Segovia Lucía [facility] NO.: [id number] DATE OF SERVICE: 12/13/2021 : 1950 REFERRING PHYSICIAN: Malvin Douglas MD Ayesha is a patient I am following for a personal history of colon polyps. The patient is a 70 year old female referred for endoscopy. Ayesha notes no history of colon complaints. The patient notes no history of upper GI complaints. Ayesha has undergone prior endoscopy. She underwent colonoscopy 5 years previously which was unremarkable. She has a first-degree family history of colon cancer. The patient is being seen by me at the request of Dr. Malvin Douglas MD for my opinion and advice regarding high risk screening colonoscopy. I performed lower endoscopy on December 04, 2021. The patient was found to have: Impression: - One small polyp in the proximal descending colon, removed with a cold biopsy forceps. Resected and retrieved. - One 7 mm polyp in the proximal rectum, removed piecemeal using a cold snare. Resected and retrieved. Clips (MR conditional) were placed. 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 - The examination was otherwise normal on direct and retroflexion views. Pathology demonstrated: FINAL DIAGNOSIS A. Descending colon polyp, biopsy: - Tubular adenoma. B. Rectal polyp, biopsy: - Tubular adenoma. The patient notes no complaints since the procedure. In reviewing the images my belief was the polyp was actually larger than I noted in endoscopy report. The aggregate size of the polyp per the pathologist was approximately 2 cm it was removed piecemeal fashion. VITALS: Blood pressure 104/78, pulse 98, temperature 36.8 C (98.3 F), resp. rate 14, height 153.7 cm (5' 0.5 ), weight 55.3 kg (122 lb), SpO2 99 %. On examination, the abdomen is benign. Assessment IMPRESSION: 2 polyps larger rectal polyp removed in piecemeal fashion both adenomatous PLAN: You were found to have adenomatous colon polyps. I recommend you undergo repeat endoscopy in 2 years. If you note bleeding, change in bowel habits, or other suspicious colon related symptoms before that time, those symptoms should be evaluated as necessary. If you have any difficulties or concerns, you should contact our office immediately. Diagnoses: (D12.6) Adenomatous polyp of colon, unspecified part of colon (primary encounter diagnosis) Return to Clinic: The patient is instructed to follow-up with me as needed. Chano Morales MD documented in this encounter [facility] 12-04-2021 Nurse Note Arrived in phase II via cart, left lateral position, eyes open, alert to self, place and event. Skin warm and dry, respirations regular and unlabored. Reports she was aware of the entire procedure, was not in any discomfort but never went to sleep. Dr Morales at bedside and reviewed results with patient at bedside. Abdomen soft and non distended, denies pain or nausea. Resting comfortably. documented in this encounter [facility] 12-04-2021 History and physical note UPDATED PROCEDURAL SEDATION HISTORY AND PHYSICAL EXAMINATION SERVICE DATE: 12/04/2021 SERVICE TIME: 9:55 AM PHYSICAL EXAM MUST BE COMPLETED ON ADMISSION PROCEDURE: Procedure Indications: The History and Physical (completed in the past 30 days) has been reviewed and the patient has been examined. The contents accurately reflect the patient's condition with the following additions or revisions since the H&P was completed. ASA Class: ASA Class:: Patient with mild systemic disease Examination indicates no changes. AIRWAY: Airway Visualization of Uvula: Yes Mouth opening greater than 2 fingerbreadths: Yes Neck Full Range of Motion: Yes LUNGS: Lungs clear to auscultation CARDIAC: Regular rhythm,Regular rate Provisional Diagnosis/Treatment Plan: family history of colon cancer - Colonoscopy SEDATION GOAL: Moderate This H&P can be found in the attached. SIGNATURE: Chano Morales MD PATIENT NAME: Ayesha Castrejon DATE: December 04, 2021 TIME: 9:55 AM Source Note - Chano Morales MD - 12/04/2021 9:45 AM EDT Images from the original note were not included. HISTORY AND PHYSICAL Ayesha Castrejon 1950 REFERRING PHYSICIAN: MD Nilesh CHIEF COMPLAINT: Consult (colonscopy) HPI: The patient is a 70 year old female referred for endoscopy. Ayesha notes no history of colon complaints. The patient notes no history of upper GI complaints. Ayesha has undergone prior endoscopy. He underwent colonoscopy 5 years previously which was unremarkable. She has a first-degree family history of colon cancer. The patient is being seen by me today at the request of Dr. Malvin Douglas MD for my opinion and advice regarding high risk screening colonoscopy. 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 Neuroma 08/2009 Right acoustic neuroma Neuropathy Osteopenia Osteoporosis Other forms of migraine PAST SURGICAL HISTORY PAST SURGICAL HISTORY Procedure Laterality Date APPENDECTOMY COCHLEAR IMPLANT HX Right 02/16/2016 BAHA COLONOSCOPY 08/2000 COLONOSCOPY FLX DX W/COLLJ SPEC WHEN PFRMD 02/04/2006 COLONOSCOPY FLX DX W/COLLJ SPEC WHEN PFRMD 04/12/2011 repeat in 5 years COLONOSCOPY FLX DX W/COLLJ SPEC WHEN PFRMD 09/03/2016 normal - family history 5 year follow up DILATION & CURETTAGE DX&/THER NONOBSTETRIC Dilation & curettage ESOPHAGOGASTRODUODENOSCOPY TRANSORAL DIAGNOSTIC 07/25/2011 EGD INNER EAR SURGERY PROC UNLISTED 08/25/2009 acoustic neuroma in right ear LAPAROSCOPY SURG CHOLECYSTECTOMY 10/04/2013 LIGJ DIVJ &/EXCJ VARICOSE VEIN CLUSTER 1 LEG Varicose Vein Surgery PAST SURGICAL HISTORY OF 11/27/2010 Arthritis repair PAST SURGICAL HISTORY OF 02/17/2012 Right thumb basal arthroplasty PAST SURGICAL HISTORY OF Right 2021 eye lid TONSILLECTOMY PRIMARY/SECONDARY <AGE 11 Tonsillectomy TOTAL ABDOMINAL HYSTERECT W/WO RMVL TUBE OVARY Hysterectomy, YELENA CURRENT MEDICATIONS Current Outpatient Medications Medication Sig glucosamine-chondroitin 500-400 mg capsule Take 1 capsule by mouth once daily. rOPINIRole (REQUIP) 0.5 mg tablet Take 0.5 mg by mouth daily at bedtime. denosumab (PROLIA SUBCUTANEOUS) Inject subcutaneously once every 6 months. VITAMIN B COMPLEX ORAL Take by mouth once daily. fluticasone (FLONASE ALLERGY RELIEF) 50 mcg/actuation nasal spray Use 1 [place] in each nostril as needed. VITAMIN E ORAL Take by mouth once daily. MAGNESIUM ORAL Take by mouth once daily. POTASSIUM ORAL Take by mouth once daily. TURMERIC ORAL Take by mouth once daily. levothyroxine 50 mcg tablet Take 1 tablet by mouth once daily. CHOLECALCIFEROL, VITAMIN D3, (VITAMIN D-3 ORAL) Take by mouth once daily. MELOXICAM ORAL Take by mouth. (Patient not taking: Reported on 09/19/2021 ) cetirizine HCl (ZYRTEC ORAL) Take by mouth. (Patient not taking: Reported on 09/19/2021 ) pyridoxine HCl, vitamin B6, (VITAMIN B-6 ORAL) Take by mouth. (Patient not taking: Reported on 09/19/2021 ) MEDICATION, NON-DATABASE Joint Blend (Patient not taking: Reported on 09/19/2021 ) multivitamin with minerals (HAIR,SKIN AND NAILS ORAL) Take by mouth. (Patient not taking: Reported on 09/19/2021 ) No current facility-administered medications for this visit. ALLERGIES: Flexeril [Cyclobenzaprine Hcl], Fosamax [Alendronate Sodium], and Zantac [Ranitidine Hcl] PERSONAL HISTORY: SOCIAL HISTORY Social History Tobacco Use Smoking status: Former Smoker Smokeless tobacco: Never Used Tobacco comment: 1975 Vaping Use Vaping Use: Never used Substance Use Topics Alcohol use: Yes Comment: very rare Drug use: No FAMILY HISTORY: FAMILY HISTORY FAMILY HISTORY Problem Relation Age of Onset Cancer Mother thyroid, renal cell cancer, brain cancer Cancer Father colon other (polyps) Brother colon polyps REVIEW OF SYMPTOMS: The review of systems data was entered by the nurse and reviewed by pa Nursing Notes: Mary Sousa LPN 09/19/2021 9:10 AM Signed REVIEW OF SYSTEMS: General: The patient denies fatigue, denies weight loss, denies weight gain, denies feeling hot, and denies feelings of cold. Eyes: The patient denies glaucoma, notes eye injury/surgery, wears glasses or contacts. Ear/Nose/Throat: The patient notes allergies, denies hayfever, denies ear infections, and denies bloody noses. Cardiovascular: The patient denies chest pain, denies heart disease, denies high blood pressure,denies cardiac stent, denies prior heart attack, notes irregular heart beat, denies high cholesterol, denies poor circulation, denies heart failure, other cardiac issues, denies claudication, denies cold feet, denies peripheral arterial stent. Respiratory: The patient denies tuberculosis, denies pneumonia, denies frequent cough, denies pulmonary embolism, denies shortness of breath, and denies coughing up blood. Gastrointestinal: The patient denies difficulty swallowing, denies acid reflux, denies ulcers, denies vomiting, denies jaundice/hepatitis, notes gallbladder problems, denies black or tarry stools, denies hemorrhoids, denies bleeding from rectum, denies diverticulitis, denies constipation, denies diarrhea, denies loss of stool control, and denies hernias. Kidney/Bladder: The patient denies kidney stones, denies urine infections, and denies bloody urine. Skin: The patient notes a history of skin cancer, denies bleeding/changing moles, and denies a history of skin rash. Neurologic: The patient denies a history of epilepsy/convulsions, denies headaches, denies head/spinal injuries, and denies stroke/TIA. Psychiatric: The patient denies psychiatric medications, denies depression, and denies voices, denies substance abuse. Endocrine: The patient notes thyroid disorders, denies diabetes, and denies hormonal problems. Hematologic: The patient denies a history of bruising, denies bleeding, and denies anemia, denies blood clots. Infections: The patient notes a history of measles and mumps, denies rheumatic fever, and denies sexually transmitted diseases. Musculoskeletal: The patient notes back pain/injury, notes back problems, denies sciatica, notes knee/foot trouble, denies arthritis, or denies gout. When was patient's last Mammogram screening? 2021 Last Colonoscopy: 2016 Mary Sousa LPN PHYSICAL EXAMINATION: General: The patient is 70 year old female, well nourished, well hydrated in no acute distress. The patient is oriented to time, place, and person. VITALS: Blood pressure 118/58, pulse 92, temperature 37.1 C (98.7 F), height 152.4 cm (5'), weight 54.9 kg (121 lb), SpO2 96 %. Body mass index is 23.63 kg/m . HEENT: Normal cephalic, ataumatic, pupils are equally round, sclera are anicteric, mucous membranes are moist, oropharynx is clear. Neck has no masses, asymmetry or lymphadenopathy. Thyroid is unremarkable. Respiratory: Clear to auscultation and percussion. Normal respiratory excursion and pattern. Cardiac: Examination is regular rate and rhythm. Abdominal exam: Soft, nontender, with no palpable masses. No hepatosplenomegaly. No palpable hernias. Rectal exam: exam deferred Extremities: no clubbing, cyanosis or edema. No adenopathy. Other: LABORATORY VALUES: As Noted RADIOLOGIC STUDIES: As Noted Assessment IMPRESSION: First-degree history of colon cancer PLAN: I plan to perform lower endoscopy. We discussed the risks and benefits of the planned endoscopy. I have informed the patient that complications can occur including failure to complete the endoscopy and perforation. The patient had the opportunity to ask questions concerning the planned endoscopy. My staff has also explained the procedure to the patient in understandable terms and has given the patient printed material concerning the procedure. The patient freely consents to surgery. I plan to use golytely bowel preparation for endoscopy Diagnoses: (Z80.0) Family history of malignant neoplasm of gastrointestinal tract (primary encounter diagnosis) A letter was sent to Dr. Malvin Douglas MD indicating the above finding for this patient. Return to Clinic: The patient is instructed to follow-up with me after the testing has been completed. Chano Morales MD Images from the original note were not included. HISTORY AND PHYSICAL Ayesha Segovia Lucía 1950 REFERRING PHYSICIAN: MD Nilesh CHIEF COMPLAINT: Consult (colonscopy) HPI: The patient is a 70 year old female referred for endoscopy. Ayesha notes no history of colon complaints. The patient notes no history of upper GI complaints. Ayesha has undergone prior endoscopy. He underwent colonoscopy 5 years previously which was unremarkable. She has a first-degree family history of colon cancer. The patient is being seen by me today at the request of Dr. Malvin Douglas MD for my opinion and advice regarding high risk screening colonoscopy. 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 Neuroma 08/2009 Right acoustic neuroma Neuropathy Osteopenia Osteoporosis Other forms of migraine PAST SURGICAL HISTORY PAST SURGICAL HISTORY Procedure Laterality Date APPENDECTOMY COCHLEAR IMPLANT HX Right 02/16/2016 BAHA COLONOSCOPY 08/2000 COLONOSCOPY FLX DX W/COLLJ SPEC WHEN PFRMD 02/04/2006 COLONOSCOPY FLX DX W/COLLJ SPEC WHEN PFRMD 04/12/2011 repeat in 5 years COLONOSCOPY FLX DX W/COLLJ SPEC WHEN PFRMD 09/03/2016 normal - family history 5 year follow up DILATION & CURETTAGE DX&/THER NONOBSTETRIC Dilation & curettage ESOPHAGOGASTRODUODENOSCOPY TRANSORAL DIAGNOSTIC 07/25/2011 EGD INNER EAR SURGERY PROC UNLISTED 08/25/2009 acoustic neuroma in right ear LAPAROSCOPY SURG CHOLECYSTECTOMY 10/04/2013 LIGJ DIVJ &/EXCJ VARICOSE VEIN CLUSTER 1 LEG Varicose Vein Surgery PAST SURGICAL HISTORY OF 11/27/2010 Arthritis repair PAST SURGICAL HISTORY OF 02/17/2012 Right thumb basal arthroplasty PAST SURGICAL HISTORY OF Right 2021 eye lid TONSILLECTOMY PRIMARY/SECONDARY <AGE 11 Tonsillectomy TOTAL ABDOMINAL HYSTERECT W/WO RMVL TUBE OVARY Hysterectomy, YELENA CURRENT MEDICATIONS Current Outpatient Medications Medication Sig glucosamine-chondroitin 500-400 mg capsule Take 1 capsule by mouth once daily. rOPINIRole (REQUIP) 0.5 mg tablet Take 0.5 mg by mouth daily at bedtime. denosumab (PROLIA SUBCUTANEOUS) Inject subcutaneously once every 6 months. VITAMIN B COMPLEX ORAL Take by mouth once daily. fluticasone (FLONASE ALLERGY RELIEF) 50 mcg/actuation nasal spray Use 1 [place] in each nostril as needed. VITAMIN E ORAL Take by mouth once daily. MAGNESIUM ORAL Take by mouth once daily. POTASSIUM ORAL Take by mouth once daily. TURMERIC ORAL Take by mouth once daily. levothyroxine 50 mcg tablet Take 1 tablet by mouth once daily. CHOLECALCIFEROL, VITAMIN D3, (VITAMIN D-3 ORAL) Take by mouth once daily. MELOXICAM ORAL Take by mouth. (Patient not taking: Reported on 09/19/2021 ) cetirizine HCl (ZYRTEC ORAL) Take by mouth. (Patient not taking: Reported on 09/19/2021 ) pyridoxine HCl, vitamin B6, (VITAMIN B-6 ORAL) Take by mouth. (Patient not taking: Reported on 09/19/2021 ) MEDICATION, NON-DATABASE Joint Blend (Patient not taking: Reported on 09/19/2021 ) multivitamin with minerals (HAIR,SKIN AND NAILS ORAL) Take by mouth. (Patient not taking: Reported on 09/19/2021 ) No current facility-administered medications for this visit. ALLERGIES: Flexeril [Cyclobenzaprine Hcl], Fosamax [Alendronate Sodium], and Zantac [Ranitidine Hcl] PERSONAL HISTORY: SOCIAL HISTORY Social History Tobacco Use Smoking status: Former Smoker Smokeless tobacco: Never Used Tobacco comment: 1975 Vaping Use Vaping Use: Never used Substance Use Topics Alcohol use: Yes Comment: very rare Drug use: No FAMILY HISTORY: FAMILY HISTORY FAMILY HISTORY Problem Relation Age of Onset Cancer Mother thyroid, renal cell cancer, brain cancer Cancer Father colon other (polyps) Brother colon polyps REVIEW OF SYMPTOMS: The review of systems data was entered by the nurse and reviewed by pa Nursing Notes: Mary Sousa LPN 09/19/2021 9:10 AM Signed REVIEW OF SYSTEMS: General: The patient denies fatigue, denies weight loss, denies weight gain, denies feeling hot, and denies feelings of cold. Eyes: The patient denies glaucoma, notes eye injury/surgery, wears glasses or contacts. Ear/Nose/Throat: The patient notes allergies, denies hayfever, denies ear infections, and denies bloody noses. Cardiovascular: The patient denies chest pain, denies heart disease, denies high blood pressure,denies cardiac stent, denies prior heart attack, notes irregular heart beat, denies high cholesterol, denies poor circulation, denies heart failure, other cardiac issues, denies claudication, denies cold feet, denies peripheral arterial stent. Respiratory: The patient denies tuberculosis, denies pneumonia, denies frequent cough, denies pulmonary embolism, denies shortness of breath, and denies coughing up blood. Gastrointestinal: The patient denies difficulty swallowing, denies acid reflux, denies ulcers, denies vomiting, denies jaundice/hepatitis, notes gallbladder problems, denies black or tarry stools, denies hemorrhoids, denies bleeding from rectum, denies diverticulitis, denies constipation, denies diarrhea, denies loss of stool control, and denies hernias. Kidney/Bladder: The patient denies kidney stones, denies urine infections, and denies bloody urine. Skin: The patient notes a history of skin cancer, denies bleeding/changing moles, and denies a history of skin rash. Neurologic: The patient denies a history of epilepsy/convulsions, denies headaches, denies head/spinal injuries, and denies stroke/TIA. Psychiatric: The patient denies psychiatric medications, denies depression, and denies voices, denies substance abuse. Endocrine: The patient notes thyroid disorders, denies diabetes, and denies hormonal problems. Hematologic: The patient denies a history of bruising, denies bleeding, and denies anemia, denies blood clots. Infections: The patient notes a history of measles and mumps, denies rheumatic fever, and denies sexually transmitted diseases. Musculoskeletal: The patient notes back pain/injury, notes back problems, denies sciatica, notes knee/foot trouble, denies arthritis, or denies gout. When was patient's last Mammogram screening? 2021 Last Colonoscopy: 2016 Mary Sousa LPN PHYSICAL EXAMINATION: General: The patient is 70 year old female, well nourished, well hydrated in no acute distress. The patient is oriented to time, place, and person. VITALS: Blood pressure 118/58, pulse 92, temperature 37.1 C (98.7 F), height 152.4 cm (5'), weight 54.9 kg (121 lb), SpO2 96 %. Body mass index is 23.63 kg/m . HEENT: Normal cephalic, ataumatic, pupils are equally round, sclera are anicteric, mucous membranes are moist, oropharynx is clear. Neck has no masses, asymmetry or lymphadenopathy. Thyroid is unremarkable. Respiratory: Clear to auscultation and percussion. Normal respiratory excursion and pattern. Cardiac: Examination is regular rate and rhythm. Abdominal exam: Soft, nontender, with no palpable masses. No hepatosplenomegaly. No palpable hernias. Rectal exam: exam deferred Extremities: no clubbing, cyanosis or edema. No adenopathy. Other: LABORATORY VALUES: As Noted RADIOLOGIC STUDIES: As Noted Assessment IMPRESSION: First-degree history of colon cancer PLAN: I plan to perform lower endoscopy. We discussed the risks and benefits of the planned endoscopy. I have informed the patient that complications can occur including failure to complete the endoscopy and perforation. The patient had the opportunity to ask questions concerning the planned endoscopy. My staff has also explained the procedure to the patient in understandable terms and has given the patient printed material concerning the procedure. The patient freely consents to surgery. I plan to use golytely bowel preparation for endoscopy Diagnoses: (Z80.0) Family history of malignant neoplasm of gastrointestinal tract (primary encounter diagnosis) A letter was sent to Dr. Malvin Douglas MD indicating the above finding for this patient. Return to Clinic: The patient is instructed to follow-up with me after the testing has been completed. Chano Morales MD documented in this encounter [facility] 09-20-2021 Note HNO ID: [id number] Author: Chano Morales MD Service: ? Author Type: Physician Type: Progress Notes Filed: 09/20/2021 6:48 AM Note Text: HISTORY AND PHYSICAL Ayesha Castrejon 1950 REFERRING PHYSICIAN: MD Nilesh CHIEF COMPLAINT: Consult (colonscopy) HPI: The patient is a 70 year old female referred for endoscopy. Ayesha notes no history of colon complaints. The patient notes no history of upper GI complaints. Ayesha has undergone prior endoscopy. He underwent colonoscopy 5 years previously which was unremarkable. She has a first-degree family history of colon cancer. The patient is being seen by me today at the request of Dr. Malvin Douglas MD for my opinion and advice regarding high risk screening colonoscopy. PAST MEDICAL HISTORY Diagnosis Date - Arrhythmia - DDD (degenerative disc disease) - Hypercholesterolemia - Hypothyroid - Impaired hearing 08/25/2009 right ear-accoustic neuroma - Intramural leiomyoma of uterus 1984 - Neuroma 08/2009 Right acoustic neuroma - Neuropathy - Osteopenia - Osteoporosis - Other forms of migraine PAST SURGICAL HISTORY Procedure Laterality Date - APPENDECTOMY - COCHLEAR IMPLANT HX Right 02/16/2016 BAHA - COLONOSCOPY 08/2000 - COLONOSCOPY FLX DX W/COLLJ SPEC WHEN PFRMD 02/04/2006 - COLONOSCOPY FLX DX W/COLLJ SPEC WHEN PFRMD 04/12/2011 repeat in 5 years - COLONOSCOPY FLX DX W/COLLJ SPEC WHEN PFRMD 09/03/2016 normal - family history 5 year follow up - DILATION AND CURETTAGE DXAND/THER NONOBSTETRIC Dilation AND curettage - ESOPHAGOGASTRODUODENOSCOPY TRANSORAL DIAGNOSTIC 07/25/2011 EGD - INNER EAR SURGERY PROC UNLISTED 08/25/2009 acoustic neuroma in right ear - LAPAROSCOPY SURG CHOLECYSTECTOMY 10/04/2013 - LIGJ DIVJ AND/EXCJ VARICOSE VEIN CLUSTER 1 LEG Varicose Vein Surgery - PAST SURGICAL HISTORY OF 11/27/2010 Arthritis repair - PAST SURGICAL HISTORY OF 02/17/2012 Right thumb basal arthroplasty - PAST SURGICAL HISTORY OF Right 2021 eye lid - TONSILLECTOMY PRIMARY/SECONDARY Tonsillectomy - TOTAL ABDOMINAL HYSTERECT W/WO RMVL TUBE OVARY Hysterectomy, YELENA Current Outpatient Medications Medication Sig - glucosamine-chondroitin 500-400 mg capsule Take 1 capsule by mouth once daily. - rOPINIRole (REQUIP) 0.5 mg tablet Take 0.5 mg by mouth daily at bedtime. - denosumab (PROLIA SUBCUTANEOUS) Inject subcutaneously once every 6 months. - VITAMIN B COMPLEX ORAL Take by mouth once daily. - fluticasone (FLONASE ALLERGY RELIEF) 50 mcg/actuation nasal spray Use 1 [place] in each nostril as needed. - VITAMIN E ORAL Take by mouth once daily. - MAGNESIUM ORAL Take by mouth once daily. - POTASSIUM ORAL Take by mouth once daily. - TURMERIC ORAL Take by mouth once daily. - levothyroxine 50 mcg tablet Take 1 tablet by mouth once daily. - CHOLECALCIFEROL, VITAMIN D3, (VITAMIN D-3 ORAL) Take by mouth once daily. - MELOXICAM ORAL Take by mouth. (Patient not taking: Reported on 09/19/2021 ) - cetirizine HCl (ZYRTEC ORAL) Take by mouth. (Patient not taking: Reported on 09/19/2021 ) - pyridoxine HCl, vitamin B6, (VITAMIN B-6 ORAL) Take by mouth. (Patient not taking: Reported on 09/19/2021 ) - MEDICATION, NON-DATABASE Joint Blend (Patient not taking: Reported on 09/19/2021 ) - multivitamin with minerals (HAIR,SKIN AND NAILS ORAL) Take by mouth. (Patient not taking: Reported on 09/19/2021 ) No current facility-administered medications for this visit. ALLERGIES: Flexeril [Cyclobenzaprine Hcl], Fosamax [Alendronate Sodium], and Zantac [Ranitidine Hcl] PERSONAL HISTORY: Social History Tobacco Use - Smoking status: Former Smoker - Smokeless tobacco: Never Used - Tobacco comment: 1975 Vaping Use - Vaping Use: Never used Substance Use Topics - Alcohol use: Yes Comment: very rare - Drug use: No FAMILY HISTORY: FAMILY HISTORY Problem Relation Age of Onset - Cancer Mother thyroid, renal cell cancer, brain cancer - Cancer Father colon - other (polyps) Brother colon polyps REVIEW OF SYMPTOMS: The review of systems data was entered by the nurse and reviewed by pa Nursing Notes: Mary Sousa LPN 09/19/2021 9:10 AM Signed REVIEW OF SYSTEMS: General: The patient denies fatigue, denies weight loss, denies weight gain, denies feeling hot, and denies feelings of cold. Eyes: The patient denies glaucoma, notes eye injury/surgery, wears glasses or contacts. Ear/Nose/Throat: The patient notes allergies, denies hayfever, denies ear infections, and denies bloody noses. Cardiovascular: The patient denies chest pain, denies heart disease, denies high blood pressure,denies cardiac stent, denies prior heart attack, notes irregular heart beat, denies high cholesterol, denies poor circulation, denies heart failure, other cardiac issues, denies claudication, denies cold feet, denies peripheral arterial stent. Respiratory: The patient denies tuberculosis, denies pneumonia, (more content not included)... [facility] Diagnosis Adenomatous polyp of colon, unspecified part of colon- Primary [facility] [place] [facility]* Diagnosis Cervicalgia- Primary Dorsalgia Pain in thoracic spine History of neuropathy Personal history of other disorders of nervous system and sense organs DDD (degenerative disc disease), cervical Degeneration of cervical intervertebral disc Disorder of bone and cartilage Disorder of bone and cartilage, unspecified Lumbar degenerative disc disease Degeneration of lumbar or lumbosacral intervertebral disc Leukopenia, unspecified type SCOTT positive Other and unspecified nonspecific immunological findings Family history of rheumatoid arthritis Family history of arthritis Fatigue, unspecified type Fibromyalgia Mylagia and myositis, unspecified History of fibromyalgia Personal history of other musculoskeletal disorders History of osteoporosis Personal history of other musculoskeletal disorders Long-term use of high-risk medication Hypothyroidism, unspecified type Abnormal reflexes of lower extremity Ankylosing spondylitis, unspecified site of spine [facility] Diagnosis Hypocalcemia- Primary Fibromyalgia Mylagia and myositis, unspecified History of neuropathy Personal history of other disorders of nervous system and sense organs DDD (degenerative disc disease), cervical Degeneration of cervical intervertebral disc Lumbar degenerative disc disease Degeneration of lumbar or lumbosacral intervertebral disc Thoracogenic scoliosis of thoracic region Thoracogenic scoliosis Thoracic degenerative disc disease Degeneration of thoracic or thoracolumbar intervertebral disc Leukopenia, unspecified type Abnormal serum KIMBERLY level Other nonspecific abnormal serum enzyme levels SCOTT positive Other and unspecified nonspecific immunological findings Family history of rheumatoid arthritis Family history of arthritis Other microscopic hematuria History of fibromyalgia Personal history of other musculoskeletal disorders History of osteoporosis Personal history of other musculoskeletal disorders Ketonuria Acetonuria Long-term use of high-risk medication Positive double stranded DNA antibody test Other and unspecified nonspecific immunological findings Other proteinuria [facility] Diagnosis Hypothyroidism, unspecified type- Primary Keratoconjunctivitis sicca Sicca syndrome History of neuropathy Personal history of other disorders of nervous system and sense organs Fibromyalgia Mylagia and myositis, unspecified Thoracic degenerative disc disease Degeneration of thoracic or thoracolumbar intervertebral disc Thoracogenic scoliosis of thoracic region Thoracogenic scoliosis Lumbar degenerative disc disease Degeneration of lumbar or lumbosacral intervertebral disc DDD (degenerative disc disease), cervical Degeneration of cervical intervertebral disc Long-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 use of high-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 Encounter for long-term (current) use of steroids History of osteoporosis Personal history of other musculoskeletal disorders History of fibromyalgia Personal history of other musculoskeletal disorders Family history of rheumatoid arthritis Family history of arthritis Dry eyes Tear film insufficiency, unspecified Leukopenia, unspecified type Other proteinuria Positive double stranded DNA antibody test Other and unspecified nonspecific immunological findings Ketonuria Acetonuria Other microscopic hematuria SCOTT positive Other and unspecified nonspecific immunological findings Abnormal serum KIMBERLY level Other nonspecific abnormal serum enzyme levels [facility] Outpatient Procedure (Routine) - Closed Specialty Diagnoses / Procedures Referred By Juan recio Referred To Contact [facility] Diagnoses Family history of malignant neoplasm of gastrointestinal tract Procedures COLONOSCOPY SCREENING COLONOSCOPY FLX DX W/COLLJ SPEC WHEN Chano Hartman MD [address] [place] [address] [facility] [address] [place] [phone] Referral ID Status Reason Start Date Expiration Date V isits Requested Visits Authorized [id number] Closed Auto-Generate d Referral 09/19/2021 09/19/2022 1 1 [facility] for visit Narrative* Outpatient Procedure (Routine) - Closed Specialty Diagnoses / Procedures Referred By Juan recio Referred To Contact [facility] [place] Diagnoses Family history of malignant neoplasm of gastrointestinal tract Procedures COLONOSCOPY SCREENING COLONOSCOPY FLX DX W/COLLJ SPEC WHEN Chano Hartman MD [address] [place] [address] [facility] [address] [place] [id number] Referral ID Status Reason Start Date Expiration Date V isits Requested Visits Authorized [id number] Closed Auto-Generate d Referral 09/19/2021 09/19/2022 1 1 [facility] Summary Purpose Family History No Family History Records FoundNo Family History Records FoundNo Family History Records FoundNo Family History Records Found Advance Directives No Advanced Directives Records FoundNo Advanced Directives Records FoundNo Advanced Directives Records FoundNo Advanced Directives Records Found Medications Administered Section Inactive Administered Medications - up to 3 most recent administrations Medication Order MAR Action Action Date Dose Rate Site fentaNYL 50 mcg/mL 25-100 mcg injection (SUBLIMAZE) 25-100 mcg, INTRAVENOUS, DIRECTED, Starting on Fri12/04/21 at 1030, Until Fri12/04/21 at 1429, DOSING DIRECTED BY PHYSICIAN FOR PROCEDURAL SEDATION ONLY, Intraprocedure Given 12/04/2021 10:09 AM EDT 25 mcg Reason for Referral Specialty Diagnoses / Procedures Referred By Juan t Referred To Contact Physical Therapy Diagnoses Cervicalgia Dorsalgia History of neuropathy DDD (degenerative disc disease), cervical Disorder of bone and cartilage Lumbar degenerative disc disease Leukopenia, unspecified type SCOTT positive Family history of rheumatoid arthritis Fatigue, unspecified type Fibromyalgia History of fibromyalgia History of osteoporosis Long-term use of high-risk medication Hypothyroidism, unspecified type Abnormal reflexes of lower extremity Wiliam Nolen, Caryn Monsivais, DO [address] [place] [address] Referral ID Status Reason Start Date Expiration Date V isits Requested Visits Authorized [id number] New Request 08/07/2022 09/01/2023 1 1 Scheduling Instructions . Additional Source Comments INFORMATION SOURCE (unrecogn ized section and content) DATE CREATED AUTHOR AUTHOR'S ORGANIZ ATION 12/14/2021 [facility] DATE CREATED AUTHOR AUTHOR'S ORGANIZ ATION 08/18/2022 [facility] DATE CREATED AUTHOR AUTHOR'S ORGANIZ ATION 04/04/2023 [facility] Source Comments (unrecognize d section and content) In the event this informatio n is protected by the Federal Confidentiality of Alcohol and Drug Abuse Patient Records regulations: The Federal rules restrict any use of the information to criminally investigate or prosecute any alcohol or drug abuse patient.[facility] the event this information is protected by the Federal Confidentiality of Alcohol and Drug Abuse Patient Records regulations: The Federal rules restrict any use of the information to criminally investigate or prosecute any alcohol or drug abuse patient.[facility] Care Teams (unrecognized sec tion and content) Quality Compliance Manager Relationship Specialty Start Date End Date Malvin Douglas MD [address] [place] [address] PCP - General Family Medicine 12/16/12 Quality Compliance Manager Relationship Specialty Start Date End Date Malvin Douglas MD [address] [place] [address] PCP - General Family Medicine 08/07/22 Quality Compliance Manager Relationship Specialty Start Date End Date Malvin Douglas MD [address] [place] [address] PCP - General Family Medicine 08/07/22 Quality Compliance Manager Relationship Specialty Start Date End Date Malvin Douglas MD [address] [place] [address] PCP - General Family Medicine 08/07/22 Reason for Visit (unrecogniz ed section and content) Reason Comments New Patient Patient was referred here by Dr. Douglas for RA. Patient states she is having a lot of muscle and nerve pain all over body. States has flare up in middle of upper back that radiates to chest. States she has neuropathy and sees Neurologist for it. Reason Comments Follow-up Patient is here for 3 week F/U. Patient states that she has not been doing well since her last visit. States that therapy is making her feel worse. Reason Comments Follow-up Patient is here toda y for a follow up, PRN at last appointment 09/19/2022. Patient states she is feeling better since she saw a Opto Mechanical Engineer who started her on Enzymes and low carb diet to control her IBS. FOR RECORDS PERTAINING TO PATIENTS WHO ARE OR HAVE BEEN ENROLLED IN A CHEMICAL DEPENDENCY/SUBSTANCEABUSE PROGRAM, SOME INFORMATION MAY BE OMITTED. This clinical summary was aggregated from multiple sources. Caution should be exercised in using it in the provision of clinical care. This summary normalizes information from multiple sources, and as a consequence, information in this document may materially change the coding, format and clinical context of patient data. In addition, data may be omitted in some cases. CLINICAL DECISIONS SHOULD BE BASED ON THE PRIMARY CLINICAL RECORDS. [facility] [employer] [facility]. provides no warranty or guarantee of the accuracy or completeness of information in this document.
== END | disposition home or self-care (01) ==
LOC: MTRAD 14:35
PROVIDERS: PCP Family Medicine; Referring Provider Clinical Nurse Specialist Adult Health; Visit Provider Clinical Nurse Specialist Adult Health
DX: M25.552 Pain in left hip (principal)
CPT/HCPCS: 73502

== ENCOUNTER → 2023-05-23 | Outpatient (CLI) | payer MEDICARE, BC, SELFPAY ==
--- NOTE | 2023-05-23 15:25 | MRI_ITS ---
INDICATION: degenerative disc disease EXAMINATION: MRI - MR Spine Lumbar W/O Contrast TECHNIQUE: Multiplanar and multisequence MR images of the lumbar spine. IV Contrast Dosage and Agent: None. COMPARISON: 01/23/2009 FINDINGS: VERTEBRAE: Vertebral body heights are preserved. Normal vertebral bodies and posterior elements. VERTEBRAL ALIGNMENT: There is mild convex scoliosis, apex right at L2. There is slight, grade 1 anterolisthesis of L4 over L5. There is preservation of the normal lumbar lordosis. CORD: Normal position and signal intensity of the conus medullaris. L1/L2: Normal disc height and morphology. Normal spinal canal, lateral recesses and neuroforamina. Moderate left and mild right facet arthropathy. L2/L3: There is diffuse loss of disc space height, asymmetrically worse along the left lateral interspace at the concavity of the patient''s scoliosis with accompanying prominent endplate osteophytes. In conjunction with a small diffuse disc bulge, facet arthropathy and ligamentum flavum hypertrophy, this leads to mild left foraminal narrowing. No significant foraminal narrowing on the right. L3/L4: Moderate diffuse loss of disc space height associated with a small diffuse disc bulge. In conjunction with facet arthropathy and ligamentum flavum hypertrophy, this leads to mild bilateral foraminal narrowing, worse on the left. L4/L5: There is mild loss of disc space height, more pronounced along the right lateral aspect of the spine with accompanying endplate osteophytes. In conjunction with facet arthropathy and ligamentum flavum hypertrophy, this leads to moderate if not severe right neural foraminal narrowing and mild left neural foraminal narrowing. There is also mild central canal stenosis. L5/S1: Moderate loss of disc space height. No significant disc herniation, mild left neural foraminal narrowing. No significant foraminal narrowing on the right, or central canal stenosis. SOFT TISSUES: Mild bilateral pelvocaliectasis. MRI/Spine Lumbar (Routine) IMPRESSION: * No acute fracture or traumatic malalignment. * Lumbar spondylosis as detailed above, worst at L3-4 and L4-5. * See above for additional details. Electronically Signed: Oscar Mohan MD at 4:22 EDT ,
== END | disposition home or self-care (01) ==
LOC: MRI 15:22
PROVIDERS: PCP Family Medicine; Referring Provider Clinical Nurse Specialist Adult Health; Visit Provider Clinical Nurse Specialist Adult Health
DX: M51.36 Other intervertebral disc degeneration, lumbar region (principal)
CPT/HCPCS: 72148

== ENCOUNTER → 2023-09-01 | Outpatient (CLI) | payer MEDICARE, BC, SELFPAY ==
[2023-09-01 18:14] LABS: Vitamin B12 553 pg/mL (211-911)
[2023-09-04 17:08] LABS: Vitamin B1, Thiamine 82.7 nmol/L (66.5-200.0)
== END | disposition home or self-care (01) ==
PROVIDERS: PCP Family Medicine; Referring Provider Psychiatry & Neurology Neurology; Visit Provider Psychiatry & Neurology Neurology
DX: G62.9 Polyneuropathy, unspecified (principal)
CPT/HCPCS: 36415; 82607; 82746; 84425

== ENCOUNTER → 2023-09-05 | Outpatient (CLI) | payer MEDICARE, BC, SELFPAY ==
[2023-09-05 10:55] LABS: ALB/GLOB Ratio 1.2 RATIO (0.9-2.4); AST(SGOT) 17 U/L (15-37); Alanine Aminotransfer ALT/SGPT 20 U/L (13-56); Albumin, Serum 3.4 g/dL (3.2-5.0); Alkaline Phosphatase 106 U/L (45-117); Anion Gap 5 (5-15); BUN 22 mg/dL (7-18); BUN/Creat Ratio 34.4 RATIO (10-20); Calcium,Total 8.8 mg/dL (8.5-10.1); Chloride 104 mmol/L (98-107); Cholesterol 274 mg/dL (200); Creatinine, Serum 0.64 mg/dL (0.55-1.02); EST Glomerular Filtration Rate 96 mL/min (>60); Est Glom Filt Rate - Afr Amer 117 mL/min (>60); Ferritin 57 ng/mL (8-252); Globulin 2.9 g/dL (2.2-4.2); Glucose 89 mg/dL (74-106); High Density Lipoprotein 100 mg/dL; Iron 110 ug/dL (50-170); Potassium 4.7 mmol/L (3.5-5.1); Protein, Total 6.3 g/dL (6.4-8.2); Sodium Level 139 mmol/L (136-145); T4 Free Direct 1.17 ng/dL (0.76-1.46); Thyroid Stim Hormone (TSH) 1.14 uIU/mL (0.358-3.74); Triglycerides 104 mg/dL; Very Low Density Lipoprotein 21 mg/dL (5-40)
[2023-09-05 18:22] LABS: Absolute Lymphocyte Count 1.66 X10^3/uL (0.83-4.51); Absolute Neutrophil Count 2.8 X10^3/uL (2.0-7.7); Basophil# 0.05 X10^3/uL; Eosinophil# 0.18 X10^3/uL; Eosinophils% 3.5 % (0-5); Hematocrit 40.5 % (37-47); Hemoglobin 12.8 g/dL (12.0-15.0); Lymphocyte # 1.66 X10^3/ul (0.83-4.51); Lymphocyte % 31.9 % (19-41); Mean Corp Hgb Conc 31.6 g/dL (32-36); Mean Corpuscular Hgb 30.6 pg (27.0-32.0); Mean Corpuscular Volume 96.9 fL (81-99); Mean Platelet Vol. 9.7 fl (6.2-12.0); Monocyte# 0.56 X10^3/uL; Monocyte% 10.7 % (0-10); NRBC Flagged by Analyzer 0 % (0-5); Neutrophil # 2.75 X10^3/uL (2.7-7.7); Neutrophil % 52.7 % (47-70); Platelet Count 282 K/mm3 (150-450); RBC Distribution Width CV 12.9 % (11.6-14.6); RBC Distribution Width SD 45.7 fl (35.1-43.9); Red Blood Count 4.18 M/mm3 (4.2-5.4); White Blood Count 5.2 K/mm3 (4.4-11.0)
[2023-09-05 18:23] LABS: POSITIVE COUNT NO; POSITIVE DIFFERENTIAL NO; POSITIVE MORPHOLOGY NO
[2023-09-05 21:08] LABS: Vitamin B12 607 pg/mL (211-911)
== END | disposition home or self-care (01) ==
LOC: MTLAB 07:55
PROVIDERS: PCP Family Medicine; Referring Provider Family Medicine; Visit Provider Family Medicine
DX: R53.83 Other fatigue (principal); E03.9 Hypothyroidism, unspecified; Z13.220 Encounter for screening for lipoid disorders
CPT/HCPCS: 36415; 80053; 80061; 82306; 82607; 82728; 83540; 84439; 84443; 85025

== ENCOUNTER → 2023-09-09 | Outpatient (CLI) | payer MEDICARE, BC, SELFPAY ==
--- NOTE | 2023-09-09 12:00 | RAD_ITS ---
STUDY: X-RAY - RIGHT CALCANEUS REASON FOR EXAM: Female, 72 years old. pain, shantal deformity TECHNIQUE: 2 view(s) of the calcaneus were obtained. COMPARISON: 03/26/2012 FINDINGS: Normal visualized calcaneus. There is a plantar calcaneal spur. There is enthesophyte formation of the posterior superior calcaneus at the site of insertion of the Achilles tendon. RAD/Calcaneus min 2 Views IMPRESSION: Normal x-ray examination of the calcaneus. Electronically Signed: Chano Aragon MD at 14:33 EDT ,
== END | disposition home or self-care (01) ==
LOC: MTRAD 13:43
PROVIDERS: PCP Family Medicine; Referring Provider Family Medicine; Visit Provider Family Medicine
DX: M79.671 Pain in right foot (principal)
CPT/HCPCS: 73650

== ENCOUNTER 2023-09-15 13:36 | Outpatient (RCR) | payer MEDICARE, BC, SELFPAY ==
[2023-09-15 14:16] VITALS: BP 119/43; PULSE 67; RESP 18; TEMP 36.2; BMI 20.8
--- NOTE | 2023-09-15 15:31 | PCM.WC.HP ---
History of Present Illness Date of Service: 09/15/23 Chief Complaint: Right finger tip injury from using a mandoline slicer History of Wound: 72 year old female presents for evaluation of a finger injury to her right ring finger on the tip near the ulnar surface. She states that last week (09/09/23) she was using a new mandoline slicer to cut cucumbers when she accidentally sliced her right ring finger. She went to the [facility] urgent care where they used silver nitrate to help control the bleeding. She has been keeping the area clean and dry and covered as instructed. She now has a dry, black scab from the silver nitrate. She did receive her updated Tetanus vaccine. 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 She denies diabetes, heart disease, HTN. Today she denies fever, chills, nausea or vomiting. Progress of Wound: Right ring finger on ulnar tip of finger she has a dry, black scab from silver nitrate chemical cautery. She states that she has been keeping the area clean and dry as instructed. She has been wearing a bag over her hand in the shower. She states that it is still very sensitive to touch. [facility] Medical History Laceration of right ring finger Osteoporosis Brain tumor Pericardial effusion Hypothyroidism GERD (gastroesophageal reflux disease) RLS (restless legs syndrome) Malignant neoplasm of colon Malignant neoplasm of kidney DDD (degenerative disc disease) Hyperlipidemia Premature ventricular contraction Premature atrial contractions Home Medications ?Medication ?Instructions ?Recorded ?Last Taken ?Type levothyroxine 50 mcg tablet 50 mcg PO DAILY 10/03/13 10/01/13 History vitamins B1 B6 B12 tablet 1 tab PO DAILY 10/20/20 Unknown History Prolia 60 mg/mL subcutaneous 60 mg subcut [id number] #1 mL 09/17/21 Unknown Rx syringe (denosumab) cholecalciferol (vitamin D3) 25 4,000 unit PO DAILY 04/03/22 Unknown History mcg (1,000 unit) tablet ipratropium bromide 42 mcg (0.06 2 spray intranasal .q8 04/03/22 Unknown History %) nasal spray omeprazole 40 mg capsule,delayed 40 mg PO DAILY 02/15/23 Unknown History release gabapentin 100 mg capsule 200 mg PO QHS 04/23/23 Unknown History leucovorin 4 mg-pyridoxal 1 tab-cap PO DAILY #30 tabs 09/01/23 Unknown Rx phosphate 50 mg-mecobalamin 2 mg tablet (Folinic-Plus) potassium chloride 10 mEq 10 meq PO QHS #30 tabs 09/01/23 Unknown Rx tablet,extended release ropinirole 1 mg tablet 1 mg PO QHS #30 tabs 09/01/23 Unknown Rx celecoxib 200 mg capsule 200 mg PO DAILY 09/15/23 Unknown History terbinafine HCl 250 mg tablet 250 mg PO DAILY 09/15/23 Unknown History Allergy/AdvReac Type Severity Reaction Status Date / Time meperidine (From Demerol) AdvReac Severe Nausea Verified 09/15/23 14:14 Family History Father CAD (coronary artery disease) Hx of CABG Mother History of permanent cardiac pacemaker placement Surgical History History of eyelid surgery History of cochlear implant History of vein stripping History of shoulder surgery History of tubal ligation History of hysterectomy History of tonsillectomy Social History Smoking Status: Never smoker alcohol intake: current details: occasional ROS Constitutional Constitutional: Denies chills or fever(s) Eyes Eyes: Reports none ENT HEENT: Reports as per HPI Cardiovascular Cardiovascular: Denies chest pain, dyspnea or edema Respiratory/Chest Respiratory/Chest: Denies cough or dyspnea Gastrointestinal Gastrointestinal: Reports none Musculoskeletal Musculoskeletal: Reports as per HPI Integumentary Integumentary: Reports as per HPI Neurologic Neurologic: Reports as per HPI Psychiatric Psychiatric: Reports none Endocrine Endocrinology: Reports none Hematologic/Lymphatic Hematologic/Lymphatic: Reports none Vital Signs Vital Signs Vital Signs: 09/15/23 14:16 Temperature 97.1 F L Temperature Source Temporal Pulse Rate 67 Respiratory Rate 18 Blood Pressure 119/43 L Blood Pressure Mean 68 Blood Pressure Source Monitor Blood Pressure Position Semi-Fowlers Blood Pressure Location Left Arm Oxygen Delivery Method Room Air Weight Weight: 112 lb Body Mass Index (BMI) 20.8 Physical Exam Const alert, oriented x3 and no apparent distress General Appearance: cooperative, comfortable and well kempt HEENT normocephalic HEENT Narrative: Slight right mouth facial droop. Speech is clear Head and Scalp: atraumatic Eyes General Eye: normal appearance of both eyes Neck full ROM Lymph Lymphatic: no lymphedema noted Resp normal respiratory effort, normal air movement, no use of accessory muscles and clear to auscultation bilaterally Effort and Inspection: able to speak in complete sentences Cardio regular rate and regular rhythm GI soft to palpation and non-tender Back/Spine normal ROM Extremity normal capillary refill Peripheral Pulses: Yes pulses 2+ throughout Skin Wound Narrative: Right ring finger on the ulnar tip there is a blackened, dry scab present. It is sensitive to palation. Neuro oriented x3, CN's II-XII intact bilaterally and moves all extremities Psych mental status grossly normal, thought process normal, cooperative and affect normal Debridement Note Debridement Note Wound debrided: ring finger on ulnar tip Laterality: Right Type of Debridement: Selective debridement Anesthesia Used: 5% Lidocaine Gel Percentage of wound debrided: 100 Instrument Used: 3mm curette Tissue Removed: Selective debridement. Unable to remove dry scabbing. Tried scorring area Amount of bleeding with debridement: None Patient tolerated procedure: Patient tolerated procedure well Post-Debridement Measurements and Additional Note: Post-Debridement Measurements/Treatment - Nurse 1 - General Ulcer Assessment Start: 09/15/23 14:11 Freq: Status: Active Protocol: [email or web address] Activity Type Activity Date Activity User E-sign Co-sign Detail Recorded Client Recorded Date Recorded By Document 09/15/23 14:16 KW fg\ 09/15/23 14:30 KW 09/15/23 14:16 - Today's Visit Information Type of service Initial Visit Arrival Mode Ambulatory Patient Identification Verified (Name & Yes ) Height and Weight Height 5 ft 1.5 in Weight 112 lb Weight in Pounds 112.0 lbs Weight Measurement Method Estimated by Patient Body Mass Index (BMI) 20.8 BMI Classification Normal BSA - [place] 1.49 Vital Signs Temperature (97.8 F-99.1 F) 97.1 F L Temperature Source Temporal Pulse Rate (60-100) 67 Pulse Location Monitor Respiratory Rate (12-18) 18 Respiratory rate source Observation Oxygen Delivery Method Room Air Blood Pressure (90/60-120/80) 119/43 L Blood Pressure Mean 68 Source Monitor Position Semi-Fowlers Blood Pressure Location Left Arm History Since Last Visit- (Skip if this is Patient's initial visit) Left Footwear Regular Shoe Right Footwear Regular Shoe Pain Scale: 0-10 Numeric Is Patient Pain Free? No RT RING FINGER -Description Throbbing -Alleviating Factors/Interventions Distraction -Comments TENDERNESS Communication Assessment Preferred language Frisian Client Technical Professional Required No Able to Read Yes Able to Write Yes Communication Tools None Caregiver Communication Skills No Impairment Impairment Right Hearing Abillity Normal Left Hearing Abillity Normal Visual Assistive Devices Glasses Teaching Assessment Preferences Verbal,Written, Demonstration Barriers to Learning None Readiness To Learn Excellent Willingness to Engage in Self Management High Activies Readiness to Engage in Self Management High Activities Anxiety Level Calm Cooperation Cooperative Perception Coherent Interest in Health Problem Asks Questions Education Importance Acknowledges Need Does Patient Smoke tobacco or other Yes substances Smoking Status Never smoker Is Patient Diabetic No Functional Assessment Recent Decline in Ability to Perform Denies Any Declines Culture/Nondenominational/Barrel Repairer Cultural/Nondenominational Needs that may affect No Treatment Plan Would you allow our hospital draw press operator to No meet you for the purpose of spiritual/ emotional support? Barrel Repairer to contact place of jew No WC - Nurse 1 - General Ulcer Measurement Start: 09/15/23 14:11 Freq: Status: Active Protocol: Activity Type Activity Date Activity User E-sign Co-sign Detail Recorded Client Recorded Date Recorded By Document 09/15/23 14:16 KW fg\ 09/15/23 14:30 KW 09/15/23 14:16 Wound Center Nurse 1 #1 RT ULNAR SURFACE OF RING FINGER -Current Size (cm) - Length 0.5 -Current Size (cm) - Width 0.5 -Current Size (cm) - Depth 0.2 -Total Square Cm 0.25 -Date of Last Picture (Recall this 09/15/23 field) -Exudate Amt None Present -Wound Margin Distinct, Outline Attached -Texture (Courtney-wound Skin Appearance) Assessed -Moisture (Courtney-wound Skin Appearance) Assessed -Color (Courtney-wound Skin Appearance) Assessed -Temperature (Courtney-wound Skin No Abnormality Appearance) (Pt Warm) -Tenderness on Palpation (Courtney-wound Yes Skin Appearance) -Ulcer Cleansing Rinsed/ Irrigated with Saline -Anesthetic Used 5% Lidocaine Gel -Wound Comment(s) PT FINGER HAS SILVER NITRATE ON FROM BEING CAUTERIZED IN OFFICE AT URGENT CARE AT [facility] WC - Nurse 2 - General Ulcer CM Notes Start: 09/15/23 14:11 Freq: Status: Active Protocol: Activity Type Activity Date Activity User E-sign Co-sign Detail Recorded Client Recorded Date Recorded By Document 09/15/23 15:13 [facility] [id number] 09/15/23 15:21 [facility] 09/15/23 15:13 Wound Center Nurse 2 -Time 15:14 -Correct Patient Yes -Correct Side, Site, Position Yes -Correct Procedure Yes -Procedure Performed Yes -Type of Procedure Debridement -Clinical Debridement Epidermis / Dermis -Tissue Removed Epidermis -Post Debridement (cm) - Length 0.6 -Post Debridement (cm) - Width 0.8 -Post Debridement (cm) - Depth 0.1 -Total Square (Post) (cm) 0.48 -Area of Debridement (cm) - Length 0.6 -Area of Debridement (cm) - Width 0.8 -Total Square (Area) (cm) 0.48 -Tunneling No -Undermining/Tunneling No -Circular Undermining No -Wound/Ulcer Outcome Not Healed -Ulcer Cleansing Rinsed/ Irrigated with Saline -Foul Odor after Cleansing No -Bioengineered Tissue No -Bleeding Controlled with Pressure -Treatment Response Procedure Tolerated Well -Debridement - Open, 1st 20sq cm Yes Pain Scale: 0-10 Numeric Is Patient Pain Free? Yes Charges/Coding Addendum Addendum: Selective debridement 09534 Visit Charges Office Visits / Consults: 88488 OV L3 Est 20min (25 modifier) Assessment/Plan Assessment/Plan (1) Laceration of right ring finger: CODE(S): S61.214A - Laceration without foreign body of right ring finger without damage to nail, initial encounter QUALIFIERS: Encounter type: initial encounter Damage to nail status: without damage Foreign body presence: without foreign body Qualified Code(s): S61.214A - Laceration without foreign body of right ring finger without damage to nail, initial encounter (2) Injury of right ring finger: CODE(S): S69.91XA - Unspecified injury of right wrist, hand and finger(s), initial encounter QUALIFIERS: Encounter type: initial encounter Qualified Code(s): S69.91XA - Unspecified injury of right wrist, hand and finger(s), initial encounter PLAN: Plan Patient evaluated at the wound healing center today. Wound care - Collagen hydrogel topped with gauze and help in place by tape or coband daily. Wash and with soap and water daily. May shower without dressing and do wound care afterwards. May not do dishes without gloves on. Keep hand elevated to help prevent swelling and decrease pain. Follow up one week. Instructed to call or come in sooner if develop any concerns or questions.
--- NOTE | 2023-09-17 11:47 | WC ---
PHOTO RIGHT RING FINGER (I)
== END 2023-09-17 23:59 | disposition home or self-care (01) ==
LOC: WC 13:36
PROVIDERS: PCP Family Medicine; Referring Provider Physician Assistant; Visit Provider Nurse Practitioner Family
DX: S61.214A Laceration without foreign body of right ring finger without damage to nail, initial encounter (principal); E78.5 Hyperlipidemia, unspecified; W26.8XXA Contact with other sharp object(s), not elsewhere classified, initial encounter; Y93.G1 Activity, food preparation and clean up; S69.91XA Unspecified injury of right wrist, hand and finger(s), initial encounter; Z79.899 Other long term (current) drug therapy; E03.9 Hypothyroidism, unspecified; Z79.890 Hormone replacement therapy; K21.9 Gastro-esophageal reflux disease without esophagitis
CPT/HCPCS: 97597; 99213; G0463

== ENCOUNTER → 2023-09-23 | Outpatient (CLI) | payer MEDICARE, BC, SELFPAY ==
[2023-09-23 09:30] LABS: Mucous, Urine 0 SEEN /hpf (<or=2+); Red Blood Cells-Urine 0 SEEN /hpf (0-5)
[2023-09-23 11:55] LABS: Color, Urine Yellow (Yellow); Glucose, Dipstick Normal (Normal); Ketone-Dipstick Negative (Negative); Leukocyte Esterase-Dipstick Negative /ul (Negative); Nitrite-Dipstick Negative (Negative); Occult Blood-Urine Negative /ul (Negative); Protein-Dipstick Negative (Negative); Urine Bilirubin Dipstick Negative (Negative); Urine Clarity Clear (Clear); Urine Urobilinogen Normal (Normal)
[2023-09-23 12:02] LABS: Squamous Epithelial Cells - UA 0-5 SEEN /hpf (5-10); White Blood Cells 0-5 SEEN /hpf (0-5)
[2023-09-23 12:03] LABS: Bacteria 1+ /hpf (None Seen)
[2023-09-23 12:04] LABS: Erythrocyte Sedimentation Rate 5 mm/hr (0-30)
[2023-09-23 12:11] LABS: Absolute Lymphocyte Count 1.17 X10^3/uL (0.83-4.51); Absolute Neutrophil Count 1.4 X10^3/uL (2.0-7.7); Basophil# 0.02 X10^3/uL; Basophil% 0.6 % (0-1); Eosinophil# 0.23 X10^3/uL; Eosinophils% 7.4 % (0-5); Hematocrit 37.1 % (37-47); Lymphocyte # 1.17 X10^3/ul (0.83-4.51); Lymphocyte % 37.5 % (19-41); Mean Corp Hgb Conc 32.3 g/dL (32-36); Mean Corpuscular Hgb 31.2 pg (27.0-32.0); Mean Corpuscular Volume 96.4 fL (81-99); Mean Platelet Vol. 9.7 fl (6.2-12.0); Monocyte# 0.31 X10^3/uL; Monocyte% 9.9 % (0-10); NRBC Flagged by Analyzer 0 % (0-5); Neutrophil # 1.39 X10^3/uL (2.7-7.7); Neutrophil % 44.6 % (47-70); Platelet Count 245 K/mm3 (150-450); RBC Distribution Width CV 12.9 % (11.6-14.6); RBC Distribution Width SD 46.5 fl (35.1-43.9); Red Blood Count 3.85 M/mm3 (4.2-5.4); White Blood Count 3.1 K/mm3 (4.4-11.0)
[2023-09-23 12:44] LABS: AST(SGOT) 18 U/L (15-37); Alanine Aminotransfer ALT/SGPT 19 U/L (13-56); Albumin, Serum 3.2 g/dL (3.2-5.0); Alkaline Phosphatase 94 U/L (45-117); Anion Gap 4 (5-15); BUN 17 mg/dL (7-18); CPK Total, Creatine Kinase 48 U/L (26-192); CRP < 2.90 mg/L (0.0-3.0); Calcium,Total 8.5 mg/dL (8.5-10.1); Chloride 107 mmol/L (98-107); Creatinine, Serum 0.61 mg/dL (0.55-1.02); EST Glomerular Filtration Rate 102 mL/min (>60); Est Glom Filt Rate - Afr Amer 124 mL/min (>60); Globulin 3.1 g/dL (2.2-4.2); Glucose 87 mg/dL (74-106); Protein, Total 6.3 g/dL (6.4-8.2); Sodium Level 141 mmol/L (136-145)
[2023-09-24 14:10] LABS: Angiotensin Convert Enzyme 77 U/L (14-82); Complement C3 128 mg/dL (82-167)
[2023-09-24 16:10] LABS: ANTINUCLEAR ANTIBODIES DIRECT Positive (Negative); Anti-Centromere B Ab <0.2 AI (0.0-0.9); Anti-Chromatin <0.2 AI (0.0-0.9); Anti-Jo <0.2 AI (0.0-0.9); Anti-Scleroderma-70 AB <0.2 AI (0.0-0.9); Anti-dsDNA Ab 15 IU/mL (0-9); RNP Ab <0.2 AI (0.0-0.9); SJOGREN'S Anti-SS-A test < 0.2 AI (0.0-0.9); SJOGREN'S Anti-SS-B test < 0.2 AI (0.0-0.9); Smith Ab <0.2 AI (0.0-0.9)
== END | disposition home or self-care (01) ==
LOC: MTLAB 09:16
PROVIDERS: PCP Family Medicine; Referring Provider Internal Medicine Rheumatology; Visit Provider Internal Medicine Rheumatology
DX: E03.9 Hypothyroidism, unspecified (principal); M79.7 Fibromyalgia; M51.34 Other intervertebral disc degeneration, thoracic region; M51.36 Other intervertebral disc degeneration, lumbar region; M50.30 Other cervical disc degeneration, unspecified cervical region; Z79.899 Other long term (current) drug therapy; Z79.52 Long term (current) use of systemic steroids; Z87.39 Personal history of other diseases of the musculoskeletal system and connective tissue; Z82.61 Family history of arthritis; H04.123 Dry eye syndrome of bilateral lacrimal glands; D72.819 Decreased white blood cell count, unspecified; R80.8 Other proteinuria; R76.8 Other specified abnormal immunological findings in serum; R82.4 Acetonuria; R31.29 Other microscopic hematuria; R74.8 Abnormal levels of other serum enzymes
CPT/HCPCS: 36415; 80053; 81001; 82164; 82550; 85025; 85652; 86038; 86140; 86160; 86225; 86235; 87086

== ENCOUNTER 2023-10-15 13:45 | Outpatient (RCR) | payer MEDICARE, BC, SELFPAY ==
[2023-09-18 00:55] VITALS: BP 119/43; PULSE 67; RESP 18; TEMP 36.2; BMI 20.8
[2023-09-22 10:44] VITALS: BP 121/58; PULSE 72; RESP 18; TEMP 37; BMI 20.8
--- NOTE | 2023-09-22 17:34 | PCM.WC.PN ---
History of Present Illness Date of Service: 09/22/23 Chief Complaint: Right finger tip injury from using a mandoline slicer History of Wound: 72 year old female presents for evaluation of a finger injury to her right ring finger on the tip near the ulnar surface. She states that last week (09/09/23) she was using a new mandoline slicer to cut cucumbers when she accidentally sliced her right ring finger. [facility] care where they used silver nitrate to help control the bleeding. She has been keeping the area clean and dry and covered as instructed. She now has a dry, black scab from the silver nitrate. She did receive her updated Tetanus vaccine. 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 She denies diabetes, heart disease, HTN. Today she denies fever, chills, nausea or vomiting. Progress of Wound: Right ring finger on ulnar tip of finger continues to have a dry, hard, black scab from silver nitrate chemical cautery. It is smaller this week after she has been using the collagen hydrogel. She has concern about a thickened dry area on the heel of her right foot that she would like addressed. Objective Data Objective Data Vital Signs: Vital Signs Temp Pulse Resp BP O2 Del Method 98.6 F 72 18 121/58 H Room Air 09/22/23 10:44 09/22/23 10:44 09/22/23 10:44 09/22/23 10:44 09/22/23 10:44 Oxygen Delivery Method Room Air Weight: 112 lb Body Mass Index (BMI) 20.8 Charges/Coding Visit Charges Office Visits / Consults: 52981 OV L3 Est 20min Physical Exam Const alert, oriented x3 and no apparent distress General Appearance: cooperative, comfortable and well kempt HEENT normocephalic HEENT Narrative: Slight right mouth facial droop. Speech is clear Head and Scalp: atraumatic Eyes General Eye: normal appearance of both eyes Neck full ROM Lymph Lymphatic: no lymphedema noted Resp normal respiratory effort, normal air movement, no use of accessory muscles and clear to auscultation bilaterally Effort and Inspection: able to speak in complete sentences Cardio regular rate and regular rhythm GI soft to palpation and non-tender Back/Spine normal ROM Extremity normal capillary refill Extremity Narrative: Right posterior heel has thickened dry callus present. She states she has had it a long time No wound present. Peripheral Pulses: Yes pulses 2+ throughout Skin Wound Narrative: Right ring finger on the ulnar tip there is a blackened, dry, hard scab present. It is sensitive to palpation. Neuro oriented x3, CN's II-XII intact bilaterally and moves all extremities Psych mental status grossly normal, thought process normal, cooperative and affect normal Debridement Note Debridement Note No debridement was completed: No debridement was completed today Post-Debridement Measurements and Additional Note: Post-Debridement Measurements/Treatment - Nurse 1 - General Ulcer Assessment Start: 09/22/23 10:44 Freq: Status: Active Protocol: SWAPNA Activity Type Activity Date Activity User E-sign Co-sign Detail Recorded Client Recorded Date Recorded By Document 09/22/23 10:44 CIHP fghj 09/22/23 10:54 CHIP 09/22/23 10:44 WC - Today's Visit Information Type of service Follow-up Visit (Physician/MATERIALS MANAGEMENT SUPERVISOR ) Arrival Mode Ambulatory Patient Identification Verified (Name & Yes ) Height and Weight Body Mass Index (BMI) 20.8 BMI Classification Normal Vital Signs Temperature (97.8 F-99.1 F) 98.6 F Temperature Source Temporal Pulse Rate (60-100) 72 Pulse Location Monitor Respiratory Rate (12-18) 18 Respiratory rate source Observation Oxygen Delivery Method Room Air Blood Pressure (90/60-120/80) 121/58 H Blood Pressure Mean (mm Hg) 79 Source Monitor Position Sitting Blood Pressure Location Left Arm History Since Last Visit- (Skip if this is Patient's initial visit) Have you changed medications since your No last visit? Any new allergies or adverse reactions No Had a fall/change in ADL's that may No increase risk of falls Signs or symptoms of abuse and/or No neglect since last visit Have you been in the hospital since your No last visit? Has dressing in place as prescribed Yes Has compression in place as prescribed N/A Has offloadiing in place as prescribed N/A Experienced any changes in pain level or No management Left Footwear Regular Shoe Right Footwear Regular Shoe Pain Scale: 0-10 Numeric Is Patient Pain Free? Yes - Nurse 1 - General Ulcer Measurement Start: 09/22/23 10:44 Freq: Status: Active Protocol: Activity Type Activity Date Activity User E-sign Co-sign Detail Recorded Client Recorded Date Recorded By Document 09/22/23 10:44 KW fghj 09/22/23 10:54 09/22/23 10:44 Wound Center Nurse 1 #1 RT ULNAR SURFACE OF RING FINGER -Current Size (cm) - Length 0.2 -Current Size (cm) - Width 0.4 -Current Size (cm) - Depth 0.1 -Total Square Cm 0.08 -Exudate Amt None Present -Wound Margin Distinct, Outline Attached -Texture (Courtney-wound Skin Appearance) Assessed -Moisture (Courtney-wound Skin Appearance) Assessed -Color (Courtney-wound Skin Appearance) Assessed -Temperature (Courtney-wound Skin No Abnormality Appearance) (Pt Warm) -Tenderness on Palpation (Courtney-wound Yes Skin Appearance) -Ulcer Cleansing Rinsed/ Irrigated with Saline -Foul Odor after Cleansing No -Anesthetic Used 5% Lidocaine Gel -Wound Comment(s) STILL COVERED WITH SILVER NITRATE WC - Nurse 2 - General Ulcer CM Notes Start: 09/22/23 10:44 Freq: Status: Active Protocol: Activity Type Activity Date Activity User E-sign Co-sign Detail Recorded Client Recorded Date Recorded By Document 09/22/23 11:44 0000 09/22/23 11:45 09/22/23 11:44 Wound Center Nurse 2 -Correct Patient No -Correct Side, Site, Position No -Correct Procedure No -Procedure Performed No -Wound/Ulcer Outcome Not Healed -Debridement - Subq, 1st 20sq cm No Pain Scale: 0-10 Numeric Is Patient Pain Free? Yes - Nurse 3 - General Ulcer D/C NN Start: 09/22/23 10:44 Freq: Status: Active Protocol: Activity Type Activity Date Activity User E-sign Co-sign Detail Recorded Client Recorded Date Recorded By Document 09/22/23 11:46 0000 09/22/23 11:47 09/22/23 11:46 Wound Care Center Nurse 3 #1 RT ULNAR SURFACE OF RING FINGER -Ulcer Cleansing Rinsed/ Irrigated with Saline -Foul Odor after Cleansing No -Other Dressing hydrogel and bandaid. Pain Scale: 0-10 Numeric Is Patient Pain Free? Yes WC - Visit Discharge Discharge Condition Stable Ambulatory Status Ambulatory Transportation Private Auto Medication Reconcilliation completed & Yes provided to patient/care provider Clinical Summary of Care Provided Yes Assessment/Plan Assessment/Plan (1) Laceration of right ring finger: CODE(S): S61.214A - Laceration without foreign body of right ring finger without damage to nail, initial encounter QUALIFIERS: Encounter type: initial encounter Damage to nail status: without damage Foreign body presence: without foreign body Qualified Code(s): S61.214A - Laceration without foreign body of right ring finger without damage to nail, initial encounter (2) Injury of right ring finger: CODE(S): S69.91XA - Unspecified injury of right wrist, hand and finger(s), initial encounter QUALIFIERS: Encounter type: initial encounter Qualified Code(s): S69.91XA - Unspecified injury of right wrist, hand and finger(s), initial encounter (3) Callus of heel: CODE(S): L84 - Corns and callosities PLAN: Plan Patient evaluated at the wound healing center today. The scabbing continues to be a biologic dressing. It is hard and continues to be be very sensitive to palpation. Wound care -She will start to soak her finger twice daily with water and antibacterial soap for 20 minutes at a time. Pat dry and apply Collagen hydrogel topped with gauze and help in place by tape or coband daily. May not do dishes without gloves on. Keep hand elevated to help prevent swelling and decrease pain. She has concern about a thickened dry callus on her right posterior heel. After discussion, she has a carton marker machine, Dr. Wilson, that she has not seen in awhile. Recommend her making an appointment with Dr. Wilson for further evaluation of this area. Follow up two weeks. She is going out of town next week. Instructed to call or come in sooner if develop any concerns or questions.
[2023-10-06 10:12] VITALS: BP 137/59; PULSE 68; RESP 18; TEMP 36.4; BMI 20.8
--- NOTE | 2023-10-06 12:55 | PCM.WC.PN ---
History of Present Illness Date of Service: 10/06/23 Chief Complaint: Right finger tip injury from using a mandoline slicer History of Wound: 72 year old female presents for evaluation of a finger injury to her right ring finger on the tip near the ulnar surface. She states that last week (09/09/23) she was using a new mandoline slicer to cut cucumbers when she accidentally sliced her right ring finger. She went to the [facility] urgent care where they used silver nitrate to help control the bleeding. She has been keeping the area clean and dry and covered as instructed. She now has a dry, black scab from the silver nitrate. She did receive her updated Tetanus vaccine. 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 She denies diabetes, heart disease, HTN. Today she denies fever, chills, nausea or vomiting. Progress of Wound: Right ring finger on ulnar tip of finger has small dry scab. The silver nitrate scab came off with the finger soaks. She stopped doing the finger soaks after the dry, hard, black scab from silver nitrate came off. She still has been placing collagen hydrogel on the area. 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 She has a blister on the dorsal aspect of her left great toe from when she was helping her son paint. The blister is intact with clear fluid. She denies any pain. She has been keeping it covered and states that it has gotten smaller in size over the past couple days. Objective Data Objective Data Vital Signs: Vital Signs Temp Pulse Resp BP O2 Del Method 97.6 F L 68 18 137/59 H Room Air 10/06/23 10:12 10/06/23 10:12 10/06/23 10:12 10/06/23 10:12 10/06/23 10:12 Oxygen Delivery Method Room Air Weight: 112 lb Body Mass Index (BMI) 20.8 Charges/Coding Wound Center CF Procedures [id number]: 08322 RMVL DEVITAL TIS 20 CM/< Multi Select Codes Wound Center CF Procedures [id number]: 21521 RMVL DEVITAL TIS 20 CM/< Debridement Note Debridement Note Wound debrided: index finger Laterality: Right Type of Debridement: Selective debridement Anesthesia Used: 5% Lidocaine Gel Depth: Down to and including healthy tissue and in the subcutaneous layer Percentage of wound debrided: 100 Instrument Used: - (1 mm curette) Tissue Removed: removed small amount of scabbing, still has scab in place Amount of bleeding with debridement: None Patient tolerated procedure: Patient tolerated procedure well Post-Debridement Measurements and Additional Note: Post-Debridement Measurements/Treatment - Nurse 1 - General Ulcer Assessment Start: 09/22/23 10:44 Freq: Status: Active Protocol: SWAPNA Activity Type Activity Date Activity User E-sign Co-sign Detail Recorded Client Recorded Date Recorded By Document 09/22/23 10:44 KW [email or web address] 09/22/23 10:54 KW Document 10/06/23 10:12 KW [id number] 10/06/23 10:18 KW 09/22/23 10/06/23 10:44 10:12 - Today's Visit Information Type of service Follow-up Visit Follow-up Visit (Physician/CANCER PROGRAM CONSULTANT (Physician/CANCER PROGRAM CONSULTANT ) ) Arrival Mode Ambulatory Ambulatory Patient Identification Verified (Name & Yes Yes ) Height and Weight Body Mass Index (BMI) 20.8 20.8 BMI Classification Normal Normal Vital Signs Temperature (97.8 F-99.1 F) 98.6 F 97.6 F L Temperature Source Temporal Temporal Pulse Rate (60-100) 72 68 Pulse Location Monitor Monitor Respiratory Rate (12-18) 18 18 Respiratory rate source Observation Monitor Oxygen Delivery Method Room Air Room Air Blood Pressure (90/60-120/80) 121/58 H 137/59 H Blood Pressure Mean (mm Hg) 79 85 Source Monitor Monitor Position Sitting Sitting Blood Pressure Location Left Arm Left Arm History Since Last Visit- (Skip if this is Patient's initial visit) Have you changed medications since your No No last visit? Any new allergies or adverse reactions No No Had a fall/change in ADL's that may No No increase risk of falls Signs or symptoms of abuse and/or No No neglect since last visit Have you been in the hospital since your No No last visit? Has dressing in place as prescribed Yes Yes Has compression in place as prescribed N/A N/A Has offloadiing in place as prescribed N/A N/A Experienced any changes in pain level or No No management Left Footwear Regular Shoe Regular Shoe Right Footwear Regular Shoe Regular Shoe Pain Scale: 0-10 Numeric Is Patient Pain Free? Yes Yes WC - Nurse 1 - General Ulcer Measurement Start: 09/22/23 10:44 Freq: Status: Active Protocol: Activity Type Activity Date Activity User E-sign Co-sign Detail Recorded Client Recorded Date Recorded By Document 09/22/23 10:44 KW [email or web address] 09/22/23 10:54 KW Document 10/06/23 10:12 KW [id number] 10/06/23 10:18 KW 09/22/23 10/06/23 10:44 10:12 Wound Center Nurse 1 #1 RT ULNAR SURFACE OF RING FINGER -Current Size (cm) - Length 0.2 0.1 -Current Size (cm) - Width 0.4 0.1 -Current Size (cm) - Depth 0.1 0.1 -Total Square Cm 0.08 0.01 -Date of Last Picture (Recall this 10/06/23 field) -Epithelialization Large 67-100% -Exudate Amt None Present None Present -Wound Margin Distinct, Distinct, Outline Outline Attached Attached -Texture (Courtney-wound Skin Appearance) Assessed Assessed -Moisture (Courtney-wound Skin Appearance) Assessed Assessed -Color (Courtney-wound Skin Appearance) Assessed Assessed -Temperature (Courtney-wound Skin No Abnormality Appearance) (Pt Warm) -Tenderness on Palpation (Courtney-wound Yes No Skin Appearance) -Ulcer Cleansing Rinsed/ Rinsed/ Irrigated with Irrigated with Saline Saline -Foul Odor after Cleansing No No -Anesthetic Used 5% Lidocaine Gel -Wound Comment(s) STILL COVERED small scab. WITH SILVER NITRATE WC - Nurse 2 - General Ulcer CM Notes Start: 09/22/23 10:44 Freq: Status: Active Protocol: Activity Type Activity Date Activity User E-sign Co-sign Detail Recorded Client Recorded Date Recorded By Document 09/22/23 11:44 JF 0000 09/22/23 11:45 JF Document 10/06/23 10:34 [id number] 10/06/23 10:41 JF 09/22/23 10/06/23 11:44 10:34 Wound Center Nurse 2 #1 RT ULNAR SURFACE OF RING FINGER -Time 10:40 -Correct Patient No Yes -Correct Side, Site, Position No Yes -Correct Procedure No Yes -Procedure Performed No Yes -Type of Procedure Debridement -Clinical Debridement Epidermis / Dermis -Tissue Removed Epidermis, Dermis -Post Debridement (cm) - Length 0.4 -Post Debridement (cm) - Width 0.2 -Post Debridement (cm) - Depth 0.1 -Total Square (Post) (cm) 0.08 -Area of Debridement (cm) - Length 0.4 -Area of Debridement (cm) - Width 0.2 -Total Square (Area) (cm) 0.08 -Tunneling No -Undermining/Tunneling No -Circular Undermining No -Wound/Ulcer Outcome Not Healed Not Healed -Ulcer Cleansing Rinsed/ Irrigated with Saline -Foul Odor after Cleansing No -Bioengineered Tissue No -Bleeding Controlled with Pressure -Treatment Response Procedure Tolerated Well -Offloading No -Debridement - Open, 1st 20sq cm Yes -Debridement - Subq, 1st 20sq cm No Pain Scale: 0-10 Numeric Is Patient Pain Free? Yes Yes - Nurse 3 - General Ulcer D/C NN Start: 09/22/23 10:44 Freq: Status: Active Protocol: Activity Type Activity Date Activity User E-sign Co-sign Detail Recorded Client Recorded Date Recorded By Document 09/22/23 11:46 0000 09/22/23 11:47 Document 10/06/23 10:53 [id number] 10/06/23 10:54 09/22/23 10/06/23 11:46 10:53 Wound Care Center Nurse 3 #1 RT ULNAR SURFACE OF RING FINGER -Ulcer Cleansing Rinsed/ Rinsed/ Irrigated with Irrigated with Saline Saline -Foul Odor after Cleansing No No -Other Dressing hydrogel and hydrogel and bandaid. bandaid Pain Scale: 0-10 Numeric Is Patient Pain Free? Yes Yes - Visit Discharge Discharge Condition Stable Stable Ambulatory Status Ambulatory Ambulatory Transportation Private Auto Private Auto Medication Reconcilliation completed & Yes Yes provided to patient/care provider Clinical Summary of Care Provided Yes Yes Assessment/Plan Assessment/Plan (1) Laceration of right ring finger: CODE(S): S61.214A - Laceration without foreign body of right ring finger without damage to nail, initial encounter QUALIFIERS: Damage to nail status: without damage Encounter type: initial encounter Foreign body presence: without foreign body Qualified Code(s): S61.214A - Laceration without foreign body of right ring finger without damage to nail, initial encounter (2) Injury of right ring finger: CODE(S): S69.91XA - Unspecified injury of right wrist, hand and finger(s), initial encounter QUALIFIERS: Encounter type: initial encounter Qualified Code(s): S69.91XA - Unspecified injury of right wrist, hand and finger(s), initial encounter (3) Callus of heel: CODE(S): L84 - Corns and callosities PLAN: Plan Patient evaluated at the wound healing center today. The scabbing continues to be a biologic dressing. It is still sensitive to palpation but the sensitivity is improving. Wound care -Apply Collagen hydrogel topped with gauze and help in place by tape or coband daily. Keep hand elevated to help prevent swelling and decrease pain. She has concern about a blister on her left dorsal great toe that is intact, non painful and is not erythematous. Instructed to keep it covered and monitor it. It is getting smaller, so it may reabsorb. Follow up one week. Instructed to call or come in sooner if develop any concerns or questions.
--- NOTE | 2023-10-09 09:23 | WC ---
PHOTO 10/06/23 RIGHT RING FINGER
[2023-10-15 13:40] VITALS: BP 131/71; PULSE 77; RESP 16; TEMP 36.2; BMI 20.8
--- NOTE | 2023-10-15 14:53 | PCM.WC.PN ---
History of Present Illness Date of Service: 10/15/23 Chief Complaint: Right finger tip injury from using a mandoline slicer History of Wound: 72 year old female presents for evaluation of a finger injury to her right ring finger on the tip near the ulnar surface. She states that last week (09/09/23) she was using a new mandoline slicer to cut cucumbers when she accidentally sliced her right ring finger. [facility] went to the [facility] urgent care where they used silver nitrate to help control the bleeding. She has been keeping the area clean and dry and covered as instructed. She now has a dry, black scab from the silver nitrate. She did receive her updated Tetanus vaccine. 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 She denies diabetes, heart disease, HTN. Today she denies fever, chills, nausea or vomiting. Progress of Wound: Right ring finger on ulnar tip of finger scab has come off. Her finger is healed. She states that the tip does have episodes of numbness and tingling. Capillary refill is <3 seconds. Objective Data Objective Data Vital Signs: Vital Signs Temp Pulse Resp BP O2 Del Method 97.1 F L 77 16 131/71 H Room Air 10/15/23 13:40 10/15/23 13:40 10/15/23 13:40 10/15/23 13:40 10/15/23 13:40 Oxygen Delivery Method Room Air Weight: 112 lb Body Mass Index (BMI) 20.8 Charges/Coding Visit Charges Office Visits / Consults: 96925 OV L3 Est 20min Physical Exam Const alert, oriented x3 and no apparent distress General Appearance: cooperative, comfortable and well kempt HEENT normocephalic HEENT Narrative: Slight right mouth facial droop. Speech is clear Head and Scalp: atraumatic Eyes General Eye: normal appearance of both eyes Neck full ROM Lymph Lymphatic: no lymphedema noted Resp normal respiratory effort and normal air movement Effort and Inspection: able to speak in complete sentences GI soft to palpation and non-tender Back/Spine normal ROM Extremity Peripheral Pulses: Yes pulses 2+ throughout Skin Wound Narrative: Right ring finger scab is healed. Neuro oriented x3, CN's II-XII intact bilaterally and moves all extremities Psych mental status grossly normal, thought process normal, cooperative and affect normal Debridement Note Debridement Note No debridement was completed: No debridement was completed today Post-Debridement Measurements and Additional Note: Post-Debridement Measurements/Treatment - Nurse 1 - General Ulcer Assessment Start: 09/22/23 10:44 Freq: Status: Active Protocol: [email or web address] Activity Type Activity Date Activity User E-sign Co-sign Detail Recorded Client Recorded Date Recorded By Document 09/22/23 10:44 KW fghj 09/22/23 10:54 KW Document 10/06/23 10:12 KW [id number] 10/06/23 10:18 KW Document 10/15/23 13:40 BM [id number] 10/15/23 13:41 BMF 09/22/23 10/06/23 10/15/23 10:44 10:12 13:40 - Today's Visit Information Type of service Follow-up Visit Follow-up Visit Initial Visit (Physician/CHILD PROTECTIVE SERVICES SPECIALIST (Physician/CHILD PROTECTIVE SERVICES SPECIALIST ) ) Arrival Mode Ambulatory Ambulatory Ambulatory Transfer Assistance None Patient Identification Verified (Name & Yes Yes Yes ) Patient Requires Transmission-Based No Precautions Height and Weight Body Mass Index (BMI) 20.8 20.8 20.8 BMI Classification Normal Normal Normal Vital Signs Temperature (97.8 F-99.1 F) 98.6 F 97.6 F L 97.1 F L Temperature Source Temporal Temporal Temporal Pulse Rate (60-100) 72 68 77 Pulse Location Monitor Monitor Monitor Respiratory Rate (12-18) 18 18 16 Respiratory rate source Observation Monitor Observation Oxygen Delivery Method Room Air Room Air Room Air Blood Pressure (90/60-120/80) 121/58 H 137/59 H 131/71 H Blood Pressure Mean (mm Hg) 79 85 91 Source Monitor Monitor Monitor Position Sitting Sitting Sitting Blood Pressure Location Left Arm Left Arm Right Arm History Since Last Visit- (Skip if this is Patient's initial visit) Have you changed medications since your No No No last visit? Any new allergies or adverse reactions No No No Had a fall/change in ADL's that may No No No increase risk of falls Signs or symptoms of abuse and/or No No No neglect since last visit Have you been in the hospital since your No No No last visit? Has dressing in place as prescribed Yes Yes Yes Has compression in place as prescribed N/A N/A N/A Has offloadiing in place as prescribed N/A N/A N/A Experienced any changes in pain level or No No No management Left Footwear Regular Shoe Regular Shoe Regular Shoe Right Footwear Regular Shoe Regular Shoe Regular Shoe Pain Scale: 0-10 Numeric Is Patient Pain Free? Yes Yes Yes TARA - Nurse 1 - General Ulcer Measurement Start: 09/22/23 10:44 Freq: Status: Active Protocol: Activity Type Activity Date Activity User E-sign Co-sign Detail Recorded Client Recorded Date Recorded By Document 09/22/23 10:44 KW fghj 09/22/23 10:54 KW Document 10/06/23 10:12 KW [id number] 10/06/23 10:18 KW Document 10/15/23 13:40 BM [id number] 10/15/23 13:41 BMF 09/22/23 10/06/23 10/15/23 10:44 10:12 13:40 Wound Center Nurse 1 #1 RT ULNAR SURFACE OF RING FINGER -Combined with other wound No -Current Size (cm) - Length 0.2 0.1 0.1 -Current Size (cm) - Width 0.4 0.1 0.1 -Current Size (cm) - Depth 0.1 0.1 0.1 -Total Square Cm 0.08 0.01 0.01 -Date of Last Picture (Recall this 10/06/23 10/15/23 field) -Photo Taken Yes -Epithelialization Large 67-100% Large 67-100% -Tunneling No -Undermining/Tunneling No -Circular Undermining No -Exudate Amt None Present None Present -Wound Margin Distinct, Distinct, Outline Outline Attached Attached -Texture (Courtney-wound Skin Appearance) Assessed Assessed Assessed, Scarring -Moisture (Courtney-wound Skin Appearance) Assessed Assessed Assessed -Color (Courtney-wound Skin Appearance) Assessed Assessed Assessed -Temperature (Courtney-wound Skin No Abnormality No Abnormality Appearance) (Pt Warm) (Pt Warm) -Tenderness on Palpation (Courtney-wound Yes No No Skin Appearance) -Ulcer Cleansing Rinsed/ Rinsed/ Rinsed/ Irrigated with Irrigated with Irrigated with Saline Saline Saline -Foul Odor after Cleansing No No No -Anesthetic Used 5% Lidocaine 5% Lidocaine Gel Gel -Wound Comment(s) STILL COVERED small scab. WITH SILVER NITRATE TARA - Nurse 2 - General Ulcer CM Notes Start: 09/22/23 10:44 Freq: Status: Active Protocol: Activity Type Activity Date Activity User E-sign Co-sign Detail Recorded Client Recorded Date Recorded By Document 09/22/23 11:44 0000 09/22/23 11:45 Document 10/06/23 10:34 [id number] 10/06/23 10:41 Document 10/15/23 14:30 [id number] 10/15/23 14:31 09/22/23 10/06/23 10/15/23 11:44 10:34 14:30 Wound Center Nurse 2 #1 RT ULNAR SURFACE OF RING FINGER -Time 10:40 14:30 -Correct Patient No Yes Yes -Correct Side, Site, Position No Yes Yes -Correct Procedure No Yes -Procedure Performed No Yes -Type of Procedure Debridement -Clinical Debridement Epidermis / Dermis -Tissue Removed Epidermis, Dermis -Post Debridement (cm) - Length 0.4 -Post Debridement (cm) - Width 0.2 -Post Debridement (cm) - Depth 0.1 -Total Square (Post) (cm) 0.08 -Area of Debridement (cm) - Length 0.4 -Area of Debridement (cm) - Width 0.2 -Total Square (Area) (cm) 0.08 -Tunneling No -Undermining/Tunneling No -Circular Undermining No -Wound/Ulcer Outcome Not Healed Not Healed Healed- Epithelialized -Ulcer Cleansing Rinsed/ Irrigated with Saline -Foul Odor after Cleansing No -Bioengineered Tissue No -Bleeding Controlled with Pressure -Treatment Response Procedure Tolerated Well -Offloading No -Debridement - Open, 1st 20sq cm Yes -Debridement - Subq, 1st 20sq cm No Pain Scale: 0-10 Numeric Is Patient Pain Free? Yes Yes Yes - Nurse 3 - General Ulcer D/C NN Start: 09/22/23 10:44 Freq: Status: Active Protocol: Activity Type Activity Date Activity User E-sign Co-sign Detail Recorded Client Recorded Date Recorded By Document 09/22/23 11:46 0000 09/22/23 11:47 Document 10/06/23 10:53 [id number] 10/06/23 10:54 Document 10/15/23 14:34 [id number] 10/15/23 14:35 09/22/23 10/06/23 10/15/23 11:46 10:53 14:34 Wound Care Center Nurse 3 #1 RT ULNAR SURFACE OF RING FINGER -Ulcer Cleansing Rinsed/ Rinsed/ Not Cleansed Irrigated with Irrigated with Saline Saline -Foul Odor after Cleansing No No No -Other Dressing hydrogel and hydrogel and bandaid. bandaid Pain Scale: 0-10 Numeric Is Patient Pain Free? Yes Yes Yes WC - Visit Discharge Discharge Condition Stable Stable Stable Ambulatory Status Ambulatory Ambulatory Ambulatory Transportation Private Auto Private Auto Private Auto Medication Reconcilliation completed & Yes Yes provided to patient/care provider Clinical Summary of Care Provided Yes Yes Yes Assessment/Plan Assessment/Plan (1) Laceration of right ring finger: CODE(S): S61.214A - Laceration without foreign body of right ring finger without damage to nail, initial encounter QUALIFIERS: Encounter type: initial encounter Damage to nail status: without damage Foreign body presence: without foreign body Qualified Code(s): S61.214A - Laceration without foreign body of right ring finger without damage to nail, initial encounter (2) Injury of right ring finger: CODE(S): S69.91XA - Unspecified injury of right wrist, hand and finger(s), initial encounter QUALIFIERS: Encounter type: initial encounter Qualified Code(s): S69.91XA - Unspecified injury of right wrist, hand and finger(s), initial encounter (3) Callus of heel: CODE(S): L84 - Corns and callosities PLAN: Plan Patient evaluated at the wound healing center today. Her finger is healed today. Encouraged her to massage lotion several times a day into her finger to help soften the scarring. She may follow up as needed.
--- NOTE | 2023-10-22 09:51 | WC ---
PHOTO 10/15/23 RIGHT RING FINGER
== END 2023-10-17 09:06 | disposition home or self-care (01) ==
LOC: WC 13:45
PROVIDERS: PCP Family Medicine; Referring Provider Physician Assistant; Visit Provider Nurse Practitioner Family
DX: S61.214A Laceration without foreign body of right ring finger without damage to nail, initial encounter (principal); W26.8XXA Contact with other sharp object(s), not elsewhere classified, initial encounter; S69.91XA Unspecified injury of right wrist, hand and finger(s), initial encounter; R29.810 Facial weakness; H91.91 Unspecified hearing loss, right ear; L84 Corns and callosities; S90.422A Blister (nonthermal), left great toe, initial encounter; X58.XXXA Exposure to other specified factors, initial encounter; Y93.89 Activity, other specified
CPT/HCPCS: 97597; 99213; G0463

== ENCOUNTER → 2023-12-09 | Outpatient (CLI) | payer MEDICARE, BC, SELFPAY ==
[2023-12-09 15:33] LABS: AST(SGOT) 24 U/L (15-37); Alanine Aminotransfer ALT/SGPT 20 U/L (13-56); Albumin, Serum 3.5 g/dL (3.2-5.0); Alkaline Phosphatase 115 U/L (45-117); Bilirubin, Direct 0.09 mg/dL (0.00-0.30); Globulin 3.2 g/dL (2.2-4.2); Protein, Total 6.7 g/dL (6.4-8.2)
== END | disposition home or self-care (01) ==
LOC: MTLAB 11:44
PROVIDERS: PCP Family Medicine; Referring Provider Family Medicine; Visit Provider Family Medicine
DX: B35.1 Tinea unguium (principal)
CPT/HCPCS: 36415; 80076

== ENCOUNTER → 2023-12-11 | Outpatient (CLI) | payer MEDICARE, BC, SELFPAY ==
--- NOTE | 2023-12-11 13:31 | MRI_ITS ---
STUDY: MRI RIGHT SHOULDER REASON FOR EXAM: Female, 73 years old. Pain right shoulder. TECHNIQUE: Standardized fat and water weighted pulse sequences were obtained in all 3 orthogonal planes. COMPARISON: None. FINDINGS: There is a linear interstitial/delaminating tear of the conjoined distal supraspinatus/infraspinatus tendon junction, measuring 1.7 cm in length (coronal T2 series 6 image 8). Normal subscapularis tendon. Normal teres minor tendon. Normal supraspinatus muscle. Normal infraspinatus muscle. Normal subscapularis muscle. Normal teres minor muscle. Normal glenohumeral articulation. There is tiny enthesopathic subcortical cyst formation of the greater tuberosity of the humeral head. Normal biceps labral complex. Normal intracapsular long biceps tendon. Normal labrum. Normal capsulo-ligamentous complex. Normal rotator interval. There is mild hypertrophic acromioclavicular arthrosis. There is a Type II morphology (curved), with a neutral orientation. There is a small amount of subacromial-subdeltoid bursal fluid. Normal visualized coracohumeral and coracoacromial ligaments. Normal quadrilateral space. Normal axillary space. Normal deltoid muscle. Normal trapezius muscle. MRI/Upper Ext Joint Only(Routine) IMPRESSION: Linear interstitial/delaminating tear of the conjoined distal supraspinatus/infraspinatus tendon junction, measuring 1.7 cm in length. Mild hypertrophic acromioclavicular arthrosis. Mild subacromial-subdeltoid bursitis. Electronically Signed: Dalton Sol MD at 15:16 EDT ,
--- OUTSIDE RECORDS SUMMARY | 2023-12-11 15:07 | XMS RPT_ITS | CCD ---
Author Organization [facility] Care Team Providers Care Manager Eligibility Name Role Phone Anil Pa Unavailable Unavailable Zakiya Wise RN Unavailable Unavailable Anil Pa Unavailable Unavailable Haseeb, Ashley Joanne Unavailable Unavailab le Haseeb, Ashley Joanne Unavailable Unavailab Malvin Grewal Unavailable Unavailable Haseeb, Ashley Joanne Unavailable Unavailab ulysses OmarTerell hernandezy M Unavailable Unavailable Malvin Douglas Unavailable Unavailable Haseeb, Ashley Joanne Unavailable Unavailab Terell Lowryy M Unavailable Unavailable Monica Talamantes Unavailable Unavailable Malvin Douglas Unavailable Unavailable Haseeb, Ahsley Joanne Unavailable Unavailab Monica Wilcox Unavailable Unavailable Jessica Bauman Unavailable Unavailable Malvin Douglas MD Primary Care Provider MALVIN DOUGLAS Primary Care Unavailabl ROBYN Rich Referring Unavailable ROBYN MORALES Attending Unavailable MALVIN DOUGLAS Primary Care UnavailROBYN Orozco Referring Unavailable ROBYN MORALES Attending Unavailable MALVIN DOUGLAS Primary Care Unavailabl ROBYN Rich Attending Unavailable Malvin Douglas MD Primary Care Provider MALVIN DOUGLAS Primary Care Unavailabl SRINI zAul Attending Unavailable MALVIN DOUGLAS Primary Care Unavailabl e PATIENCE OSMAN Referring Unavailable MALVIN DOULGAS Primary Care Unavailabl e SELF, SELF Referring Unavailable CARYN SWAIN JR. Attending Unavaila CARYN Bee JR. Attending Unavaila MALVIN Cortez Primary Care Unavailabl e SELF, SELF Referring Unavailable Malvin Douglas MD Primary Care Provider Allergies Allergy Classification Reported Allergen(s) Allergy Type Date of Onset Reaction(s) Facility (4 sources) meperidine drug allergy 1 Nausea [facility] Work Phone: (4 sources) Alendronate; Translations: [ALENDRONATE SODIUM] Drug Allergy 6 Intolerance [facility] (4 sources) cyclobenzaprine; Translations: [CYCLOBENZAPRINE HCL] Drug Allergy 6 Intolerance [facility] (4 sources) raNITIdine; Translations: [RANITIDINE HCL] Drug Allergy 6 Intolerance [facility] (5 sources) guaiFENesin / Pseudoephedrine Drug Allergy 3 Palpitations [facility] Medications Current Medications Medication Drug Class(es) Dates Sig (Normalized) Sig (Original) calcium carbonate 1250 mg oral tablet (6 sources) Start: 08-14-2022 End: 10-13-2023 take 1 tablet by mouth once daily oyster shell calcium 1250 (500 Ca) MG tablet take 1 tablet by mouth once daily 360 tablet 09/21/2023 Active celecoxib 200 mg oral capsule (4 sources) Nonsteroidal Anti-inflammatory Drug take 1 capsule by mouth once daily celecoxib (CELEBREX) 200 mg capsule Take 200 mg by mouth once daily. Active Cetirizine (3 sources) Histamine-1 Receptor Antagonist cetirizine HCl (ZYRTEC ORAL) Take by mouth once daily as needed. Active cetirizine HCl ( ZYRTEC ORAL) Take by mouth once daily as needed. 0 Active cetirizine HCl ( ZYRTEC ORAL) Take by mouth. 0 Active Comment on above: Take by mouth. Take by mouth once d aily as needed. CHOLECALCIFEROL, VITAMIN D3, (VITAMIN D-3 ORAL) (3 sources) take 2000 [IU] by mouth once daily CHOLECALCIFEROL, VITAMIN D3, (VITAMIN D-3 ORAL) Take 2,000 Units by mouth once daily. Active CHOLECALCIFEROL, VITAMIN D3, (VITAMIN D-3 ORAL) Take by mouth once daily. 0 Active Comment on above: Take by mouth once d aily. denosumab (8 sources) RANK Ligand Inhibitor denosumab (PROLIA SUBCUTANEOUS) Inject 60 mg/mL subcutaneously once every 6 months. Active denosumab (Proli a) 60 MG/ML Solution Prefilled Syringe injection Inject 1 mL under the skin. Active denosumab (PROLI A SUBCUTANEOUS) Inject subcutaneously once every 6 months. 0 Active Comment on above: Inject subcutaneousl y once every 6 months. DIGESTIVE ENZYMES PO (3 sources) DIGESTIVE ENZYME S PO Take by mouth. Active enzymes,digestive (DIGESTIVE ENZYMES ORAL) (1 source) enzymes,digestiv e (DIGESTIVE ENZYMES ORAL) Take 1 capsule by mouth once daily as needed. May take two capsules Active fluticasone propionate 0.05 mg/actuat metered dose nasal spray (8 sources) Corticosteroid fluticasone (BESS NASE) 50 mcg/actuation nasal spray Use 1 [place] in each nostril as needed. Active End: 10-13-2023 fluticasone 50 MCG/ACT Suspe nsion nasal spray 1 spray by Does Not Apply route. 10/13/2023 Discontinued (Medication Reconciliation (suppress cancel msg)) Comment on above: Use 1 [place] in each nostril as needed. Folinic-Plus 4-50-2 MG tablet (2 sources) Start: 09-02-2023 take 1 tablet by mouth once daily Folinic-Plus 4-50-2 MG tablet Take 1 tablet by mouth daily. 09/02/2023 Active gabapentin 100 mg oral capsule (5 sources) Anti-epileptic Agent take 1 capsule by mouth every twelve hours as needed gabapentin (NEURONTIN) 100 mg capsule Take 1 capsule by mouth two times a day as needed. Active take 200 mg by mouth once daily at bedtime gabapentin (NEURONTIN ORAL) Take 200 mg by mouth daily at bedtime. Active xklbbuiglo-cmqepub-jnwjzyvla in (FOLINIC-PLUS) 4-50-2 mg tab (1 source) take 1 tablet by mouth once daily zreepdshpe-dnztfrd-iebgoythrxs (FOLINIC-PLUS) 4-50-2 mg tab Take 1 tablet by mouth once daily. Active magnesium oxide 500 mg oral capsule (5 sources) St ar t: take 1 capsule by mouth at bedtime RA Magnesium 500 MG capsule Take 1 capsule by mouth at bedtime. 07/18/2022 Active polyethylene glycol 3350 236 000 mg / potassium chloride 2970 mg / sodium bicarbonate 6740 mg / sodium chloride 5860 mg / sodium sulfate 51884 mg powder for oral solution (1 source) Osmotic Laxative St ar t: En d: peg 3350-Electrolytes (GOLYT CHON) 236-22.74-6.74 -5.86 gram suspension Indications: Screen for colon cancer , Adenomatous polyp of colon, unspecified part of colon Take 4,000 mL by mouth one time only for 1 dose. Refer to printed prep instructions from your provider. 4000 mL 11/13/2023 11/13/2023 Active potassium chloride 10 meq extended release oral tablet (3 sources) take 2 tablets by mouth twice daily potassium chloride 10 MEQ Tab CR tablet ER Take 2 tablets by mouth 2 times daily. Active rOPINIRole 1 mg oral tablet (8 sources) Nonergot Dopamine Agonist [facility] t: take 1 tablet by mouth at bedtime rOPINIRole 1 MG tablet take 1 tablet by mouth at bedtime 1 TO 3 HOURS BEFORE BEDTIME 07/22/2022 Active Start: 08-27-2021 take 1 tablet by abdulkadir th once daily at bedtime, then take 2 tablets by mouth once daily rOPINIRole (REQUIP) 0.5 mg tablet Take 0.5 mg by mouth daily at bedtime. Takes 1 MG by mouth daily 08/27/2021 Active Comment on above: Take 0.5 mg by mouth daily at bedtime. Take 0.5 mg by mouth daily at bedtime. Takes 1 MG by mouth daily terbinafine 250 mg oral tablet (6 sources) Allylamine Antifungal Start: take 1 tablet by mouth once daily terbinafine HCl (LAMISIL) 250 mg tablet Take 1 tablet by mouth once daily. 09/09/2023 Active Start: 07-18-2022 End: 04-02-2023 take 1 tablet by mouth once daily Terbinafine 250 MG tablet Take 1 tablet by mouth daily. 07/18/2022 04/02/2023 Discontinued levothyroxine sodium 0.05 mg oral tablet (20 sources) l-Thyroxine Start: 08-12-2012 End: 08-24-2014 take 1 tablet by mouth once daily Levothyroxine 50 MCG tablet Take 1 tablet by mouth daily. 06/03/2022 Active Comment on above: Take 1 tablet by abdulkadir th once daily. Completed/Discontinued Medications Medication Drug Class(es) Dates Sig (Normalized) Sig (Original) ACETAMINOPHEN-CODEI NE (6 sources) Opioid Agonist Start: 08-02-2011 End: 09-09-2016 TYLENOL WITH CODEINE #3 300-30 MG TABS As needed ACETAMINOPHEN-CODEIN E [id number] Mac Bynum MD Start: 08-02-2011 TYLENOL WITH C ODEINE #3 300-30 MG TABS As needed ACETAMINOPHEN-CODEINE [id number] Mac Bynum MD Start: 08-02-2011 TYLENOL WITH C ODEINE #3 300-30 MG TABS As needed ACETAMINOPHEN-CODEINE [id number] Mac Bynum MD acetaminophen / HYDROcodone (8 sources) Opioid Agonist Start: 01-23-2011 take 1 tablet by mouth at bedtime as needed VICODIN 5-500 MG TABS One tablet by mouth at bedtime. as needed HYDROCODONE-ACETAMINOPHEN [id number] Gali Tidwell Start: 01-23-2011 End: 08-02-2011 take 1 tablet by mouth at bedtime as needed VICODIN 5-500 MG TABS One tablet by mout h at bedtime. as needed HYDROCODONE-ACETAMINOPHEN [id number] Mac Bynum MD aspirin 81 mg delayed release oral tablet (10 sources) Nonsteroidal Anti-inflammatory Drug Start: 08-02-2011 End: 09-09-2016 take 1 tablet by mouth once daily ASPIRIN EC 81 MG TBEC One tablet by mouth daily ASPIRIN [id number] Mac Bynum MD Start: 08-02-2011 take 1 tablet by abdulkadir th once daily ASPIRIN 81 MG TABS One tablet by mouth daily ASPIRIN [id number] Mac Bynum MD Start: 08-02-2011 take 1 tablet by abdulkadir th once daily ASPIRIN 81 MG TABS One tablet by mouth daily ASPIRIN [id number] Mac Bynum MD calcium carbonate 1500 mg / cholecalciferol 200 unt oral tablet (4 sources) Vitamin D Start: 01-23-2011 take 1 tablet by mouth twice daily CALCIUM + D 600-200 MG-UNIT TABS One tablet by mouth twice daily CALCIUM CARBONATE-VITAMIN D [id number] Gali Tidwell End: 10-13-2023 Oyster Shell Calcium w/D 500 -5 MG-MCG tablet Take by mouth daily. 10/13/2023 Discontinued (Medication Reconciliation (suppress cancel msg)) calcium carbonate / vitamin D (3 sources) Start: 01-23-2011 take 1 tablet by mouth twice daily CALCIUM + D 600-200 MG-UNIT TABS One tablet by mouth twice daily CALCIUM CARBONATE-VITAMIN D [id number] Gali Tidwell CALCIUM CITRATE-VITAMIN D TABS (8 sources) Start: 08-12-2012 End: 09-09-2016 take 1 tablet by mouth once daily CITRACAL/VITAMIN D TABS One tablet by mouth daily CALCIUM CITRATE-VITAMIN D TABS [id number] Mac Bynum MD Start: 08-12-2012 take 1 tablet by abdulkadir th once daily CITRACAL/VITAMIN D TABS One tablet by mouth daily CALCIUM CITRATE-VITAMIN D TABS [id number] Mac Bynum MD Start: 08-02-2011 take 1 tablet by abdulkadir th twice daily CITRACAL/VITAMIN D TABS One tablet by mouth twice daily CALCIUM CITRATE-VITAMIN D TABS [id number] Mac Bynum MD CALCIUM CITRATE-VITAMIN D TABS (2 sources) Start: 08-12-2012 take 1 tablet by mouth once daily CITRACAL/VITAMIN D TABS One tablet by mouth daily CALCIUM CITRATE-VITAMIN D TABS [id number] Mac Bynum MD Start: 08-02-2011 take 1 tablet by abdulkadir th twice daily CITRACAL/VITAMIN D TABS One tablet by mouth twice daily CALCIUM CITRATE-VITAMIN D TABS [id number] Mac Bynum MD cholecalciferol 2000 unt oral tablet (14 sources) Vitamin D Start: 08-02-2011 take 1 tablet by mouth once daily VITAMIN D 2000 UNIT TABS One tablet by mouth daily CHOLECALCIFEROL [id number] Mac Bynum MD Start: 08-02-2011 End: 09-09-2016 take 2 tablets by mouth once daily VITAMIN D 2000 UNIT TABS Two tablets by mouth daily CHOLECALCIFEROL [id number] Mac Bynum MD Start: 01-23-2011 take 1 tablet by abdulkadir th once, then take 3 tablets by mouth once daily VITAMIN D 400 UNIT TABS One tablet by mouth three X daily CHOLECALCIFEROL [id number] Gali Tidwell chondroitin sulfates 400 mg / glucosamine hydrochloride 500 mg oral capsule (7 sources) Start: 08-18-2013 End: 11-13-2023 take 1 capsule by mouth once daily glucosamine-chondroitin 500-400 mg capsule Take 1 capsule by mouth once daily. 08/18/2013 11/13/2023 Discontinued (Discontinued by Patient) Start: 08-18-2013 take 1 capsule by [facility] once daily GLUCOSAMINE-CHONDROITIN CAPS One capsule by mouth daily GLUCOSAMINE-CHONDROITIN CAPS [id number] Mac Bynum MD Comment on above: Take 1 capsule by [facility] once daily. coenzyme q10 100 mg oral capsule (14 sources) Start: 08-24-2014 End: 09-09-2016 take 1 tablet by mouth once daily COQ-10 CAPS One tablet by mouth daily COENZYME Q10 CAPS [id number] Mac Bynum MD Start: 08-12-2012 End: 08-18-2013 take 1 tablet by mouth once daily CO Q-10 100 MG CAPS One tablet by mouth daily COENZYME Q10 [id number] Mac Bynum MD Start: 08-12-2012 take 1 tablet by abdulkadir th once daily CO Q-10 100 MG CAPS One tablet by mouth daily COENZYME Q10 [id number] Mac Bynum MD Start: 08-12-2012 End: 08-18-2013 take 1 tablet by mouth once daily CO Q-10 100 MG CAPS One tablet by mouth daily COENZYME Q10 [id number] Mac Bynum MD DULoxetine 30 mg delayed release oral capsule (2 sources) Serotonin and Norepinephrine Reuptake Inhibitor Start: 08-06-2022 End: 09-25-2022 DULoxetine 30 MG Cap Particles capsule esomeprazole 40 mg injection (8 sources) Proton Pump Inhibitor Start: 01-23-2011 End: 08-12-2012 take 1 tablet by mouth once daily NEXIUM 40 MG CPDR One tablet by mouth daily ESOMEPRAZOLE MAGNESIUM [id number] Mac Bynum MD Start: 01-23-2011 End: 08-12-2012 take 1 tablet by mouth once daily NEXIUM 40 MG CPDR One tablet by mouth daily ESOMEPRAZOLE MAGNESIUM [id number] Gali Tidwell estradiol 2 mg oral tablet (8 sources) Estrogen Start: 01-23-2011 End: 08-02-2011 ESTRING 2 MG RING Take as directed ESTRADIOL [id number] Mac Bynum MD Start: 01-23-2011 End: 08-02-2011 ESTRING 2 MG RING Take as di rected ESTRADIOL [id number] Gali Tidwell flaxseed extract (8 sources) Non-Standardized Food Allergenic Extract, Non-Standardized Plant Allergenic Extract Start: 01-23-2011 take 1 tablet by mouth once daily FLAX SEED OIL CAPS One tablet by mouth daily FLAXSEED (LINSEED) CAPS [id number] Gali Tidwell Start: 01-23-2011 End: 08-12-2012 take 1 tablet by mouth once daily FLAX SEED OIL CAPS One tablet by mouth daily FLAXSEED (LINSEED) CAPS [id number] Mac Bynum MD fluorometholone 1 mg/ml ophthalmic suspension (3 sources) Corticosteroid End: 10-13-2023 take 1 drop(s) into the eye(s) four times daily fluorometholone 0.1 % Suspension ophthalmic suspension 1 drop 4 times daily. 10/13/2023 Discontinued (Medication Reconciliation (suppress cancel msg)) Glucosamine (1 source) End: 10-13-2023 Glucosamine HCl (GLUCOSAMINE PO) Take by mouth. 10/13/2023 Discontinued ipratropium bromide 0.042 mg/actuat metered dose nasal spray (2 sources) Anticholinergic End: 11-13-2023 ipratropium bromide (ATROVENT) 42 mcg (0.06 %) nasal spray Use 2 Sprays in the nose. 11/13/2023 Discontinued (Discontinued by Patient) Ipratropium 0.06 % Solution 2 sprays by Nasal route 3 times daily. Active KRILL OIL CAPS (4 sources) Start: 08-12-2012 take 1 tablet by abdulkadir th once daily KRILL OIL CAPS One tablet by mouth daily KRILL OIL CAPS [id number] Mac Bynum MD magnesium (9 sources) Start: 08-12-2012 End: 09-09-2016 take 1 tablet by mouth once daily MAGNESIUM CAPS One tablet by mouth daily MAGNESIUM CAPS [id number] Mca Bynum MD Start: 08-12-2012 take 1 tablet by abdulkadir th once daily MAGNESIUM CAPS One tablet by mouth daily MAGNESIUM CAPS [id number] Mac Bynum MD End: 11-13-2023 MAGNESIUM ORAL Take by mouth once daily. 11/13/2023 Discontinued (Discontinued by Patient) MAGNESIUM ORAL T yessy by mouth once daily. 0 Active Comment on above: Take by mouth once d aily. MEDICATION, NON-DATABASE (3 sources) End: 11-13-2023 MEDICATION, NON-DATABASE Joint Blend 11/13/2023 Discontinued (Discontinued by Patient) MEDICATION, NON- DATABASE Joint Blend 0 Active Comment on above: Joint Blend melatonin 5 mg oral tablet (8 sources) Start: 2 End: 3 take 1 tablet by mouth once daily as needed MELATONIN 5 MG TABS One tablet by mouth daily as needed MELATONIN [id number] Mac Bynum MD meloxicam (3 sources) Nonsteroidal Anti-inflammatory Drug End: 4 MELOXICAM ORAL Take by mouth. 11/13/2023 Discontinued (Discontinued by Patient) MELOXICAM ORAL T yessy by mouth. 0 Active Comment on above: Take by mouth. multivitamin with minerals (HAIR,SKIN AND NAILS ORAL) (3 sources) End: 11-13-2023 multivitamin with minerals (HAIR,SKIN AND NAILS ORAL) Take by mouth. 11/13/2023 Discontinued (Discontinued by Patient) multivitamin wit h minerals (HAIR,SKIN AND NAILS ORAL) Take by mouth. 0 Active Comment on above: Take by mouth. omeprazole 40 mg delayed release oral capsule (12 sources) Proton Pump Inhibitor Start: 08-12-2012 End: 08-24-2014 take 1 tablet by mouth once daily OMEPRAZOLE 40 MG CPDR One tablet by mouth daily OMEPRAZOLE [id number] Mac Bynum MD Potassium (3 sources) End: 11-13-2023 POTASSIUM ORAL Take by mouth once daily. 11/13/2023 Discontinued (Discontinued by Patient) POTASSIUM ORAL T yessy by mouth once daily. 0 Active Comment on above: Take by mouth once d aily. POTASSIUM (6 sources) Start: 08-18-2013 End: 09-09-2016 take 1 tablet by mouth once daily POTASSIUM 99 MG TABS One tablet by mouth daily POTASSIUM [id number] Mac Bynum MD Start: 08-18-2013 take 1 tablet by abdulkadir th once daily POTASSIUM 99 MG TABS One tablet by mouth daily POTASSIUM [id number] Mac Bynum MD Start: 08-18-2013 take 1 tablet by abdulkadir th once daily POTASSIUM 99 MG TABS One tablet by mouth daily POTASSIUM [id number] Mac Bynum MD pravastatin sodium 20 mg oral tablet (8 sources) HMG-CoA Reductase Inhibitor Start: 08-02-2011 End: 08-24-2014 take 1 tablet by mouth at bedtime PRAVASTATIN SODIUM 20 MG TABS One tablet by mouth at bedtime. PRAVASTATIN SODIUM [id number] Mac Bynum MD pyridoxine HCl, vitamin B6, (VITAMIN B-6 ORAL) (3 sources) End: 11-13-2023 pyridoxine HCl, vitamin B6, (VITAMIN B-6 ORAL) Take by mouth. 11/13/2023 Discontinued (Discontinued by Patient) pyridoxine HCl, vitamin B6, (VITAMIN B-6 ORAL) Take by mouth. 0 Active Comment on above: Take by mouth. raNITIdine 300 mg oral capsule (4 sources) Histamine-2 Receptor Antagonist Start: 2 take 1 tablet by mouth once daily RANITIDINE HCL 300 MG CAPS One tablet by mouth daily RANITIDINE HCL [id number] Mac Bynum MD traMADol hydrochloride 50 mg oral tablet (6 sources) Opioid Agonist Start: 4 End: 7 take 1 tablet by mouth once daily as needed for muscle spasms TRAMADOL HCL 50 MG TABS One tablet by mouth daily as needed for back spasms TRAMADOL HCL [id number] Mac Bynum MD TURMERIC CAPS (6 sources) Start: 7 TURMERIC CAPS 538mg daily TURMERIC CAPS [id number] Mac Bynmu MD TURMERIC ORAL Ta ke by mouth once daily. Active TURMERIC PO Take by mouth 2 times daily. Active TURMERIC ORAL Ta ke by mouth once daily. 0 Active Comment on above: Take by mouth once d aily. vitamin b 12 0.25 mg oral tablet (8 sources) Vitamin B12 Start: 08-02-2011 End: 09-11-2015 take 1 tablet by mouth once daily VITAMIN B-12 250 MCG TABS One tablet by mouth daily CYANOCOBALAMIN [id number] Mac Bynum MD VITAMIN B COMPLEX ORAL (3 sources) End: 11-13-2023 VITAMIN B COMPLEX ORAL Take by mouth once daily. 11/13/2023 Discontinued (Discontinued by Patient) VITAMIN B COMPLE X ORAL Take by mouth once daily. 0 Active Comment on above: Take by mouth once d aily. CHOLECALCIFEROL (2 sources) Start: 7 take 1 tablet by mouth once daily VITAMIN D 1000 UNIT TABS One tablet by mouth daily CHOLECALCIFEROL [id number] Mac Bynum MD vitamin e 400 unt oral capsule (6 sources) Start: 3 End: 7 take 1 tablet by mouth once daily VITAMIN E 400 UNIT CAPS One tablet by mouth daily VITAMIN E [id number] Mac Bynum MD VITAMIN E ORAL (3 sources) End: 4 VITAMIN E ORAL Take by mouth once daily. 11/13/2023 Discontinued (Discontinued by Patient) VITAMIN E ORAL T yessy by mouth once daily. 0 Active Comment on above: Take by mouth once d aily. Problems Active Problems Problem Classification Problem Date Documented Date Episodic/Chronic Blindness and vision defects (3 sources) Diplopia; Translations: [Diplopia] Onset: 4 08-27-2023 Episodic Cardiac dysrhythmias (4 sources) Ventricular premature beats; Translations: [Ventricular premature depolarization] Onset: 1 01-23-2011 Chronic Diseases of mouth; excluding dental (8 sources) Xerostomia; Translations: [Dry mouth, unspecified] Onset: 4 10-13-2023 Episodic Diseases of white blood cells (19 sources) Leukopenia; Translations: [Decreased white blood cell count, unspecified] Onset: 3 08-07-2022 Chronic Disorders of lipid metabolism (4 sources) Hyperlipidemia; Translations: [Hyperlipidemia, unspecified] Onset: 1 01-23-2011 Chronic Esophageal disorders (1 source) Esophageal disorders Onset: 8 Hemorrhoids (3 sources) Internal hemorrhoids; Translations: [Other hemorrhoids] 02-04-2006 Episodic Immunizations and screening for infectious disease (18 sources) Anti-nuclear factor positive; Translations: [Other specified abnormal immunological findings in serum] Onset: 3 08-07-2022 Episodic Menopausal disorders (3 sources) Menopausal symptom; Translations: [Menopausal and female climacteric states] Onset: 6 08-05-2005 Chronic Nonmalignant breast conditions (3 sources) Fibrocystic disease of breast; Translations: [Diffuse cystic mastopathy of unspecified breast] Onset: 1 02-03-2011 Chronic Other acquired deformities (5 sources) Thoracogenic scoliosis, thoracic region; Translations: [Thoracogenic scoliosis] Onset: 3 09-25-2022 Chronic Other acquired deformities (4 sources) Scoliosis of thoracic spine; Translations: [Scoliosis, unspecified] Onset: 3 09-25-2022 Chronic Other aftercare (9 sources) H/O: high risk medication; Translations: [Other longterm (current) drug therapy] Onset: 3 08-07-2022 Episodic Other aftercare (5 sources) Patient encounter status; Translations: [Encounter for therapeutic drug level monitoring] Onset: 4 10-13-2023 Episodic Other aftercare (2 sources) Encounter for therapeutic drug level monitoring; Translations: [Encounter for therapeutic drug level monitoring] Onset: 4 Episodic Other aftercare (2 sources) Other longterm (current) drug therapy; Translations: [Other longterm (current) drug therapy] Onset: 4 Episodic Other aftercare (2 sources) senior living (current) use of non-steroidal anti-inflammatories (NSAID); Translations: [senior living (current) use of non-steroidal anti-inflammatories (nsaid)] Onset: 4 Episodic Other and unspecified benign neoplasm (3 sources) Benign neoplasm of cranial nerve; Translations: [Benign neoplasm of cranial nerves] Onset: 9 03-08-2008 Chronic Other and unspecified benign neoplasm (2 sources) Adenomatous polyp of colon ; Translations: [Benign neoplasm of colon, unspecified] Episodic Other connective tissue disease (10 sources) Fibromyalgia; Translations: [Fibromyalgia] Onset: 3 08-07-2022 Episodic Other connective tissue disease (9 sources) H/O: musculoskeletal disease; Translations: [Personal history of other diseases of the musculoskeletal system and connective tissue] Onset: 3 08-07-2022 Episodic Other connective tissue disease (9 sources) History of osteoporosis; Translations: [Personal history [...] Chronic Other ear and sense organ disorders (3 sources) Sensorineural hearing loss; Translations: [Unspecified sensorineural hearing loss] Onset: 9 03-08-2008 Chronic Other eye disorders (5 sources) Dry eyes; Translations: [Dry eye syndrome of bilateral lacrimal glands] Onset: 4 04-02-2023 Episodic Other eye disorders (1 source) Esotropia of right eye; Translations: [Monocular esotropia, right eye] 10-02-2023 Episodic Other eye disorders (2 sources) Dry eye syndrome of bilateral lacrimal glands; Translations: [Dry eye syndrome of bilateral lacrimal glands] Onset: 4 Episodic Other nervous system disorders (9 sources) History of clinical finding in subject; [...] Episodic Other nutritional; endocrine; and metabolic disorders (2 sources) Hypoproteinemia; Translations: [Other disorders of glycoprotein metabolism] Onset: 4 10-13-2023 Chronic Other nutritional; endocrine; and metabolic disorders (2 sources) Other disorders of glycoprotein metabolism; Translations: [Other disorders of glycoprotein metabolism] Onset: 4 Chronic Residual codes; unclassified (4 sources) Family history of malignant neoplasm of gastrointestinal tract; Translations: [Family history of malignant neoplasm of digestive organs] Episodic Residual codes; unclassified (9 sources) FH: Rheumatoid arthritis; Translations: [Family history of arthritis] Onset: 3 08-07-2022 Episodic Residual codes; unclassified (2 sources) Family history of arthritis; Translations: [Family history of arthritis] Onset: 3 Episodic Residual codes; unclassified (1 source) Family history of cancer of colon; Translations: [Family history of malignant neoplasm of digestive organs] 11-13-2023 Episodic Rheumatoid arthritis and related disease (1 source) Ankylosing spondylitis; Translations: [Ankylosing spondylitis of unspecified sites in spine] 08-07-2022 Chronic Spondylosis; intervertebral disc disorders; other back problems (20 sources) Degeneration of cervical intervertebral disc; Translations: [Other cervical disc degeneration, unspecified cervical region] Onset: 3 08-07-2022 Chronic Systemic lupus erythematosus and connective tissue disorders (7 sources) Keratoconjunctivitis sicca; 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] Onset: 4 04-02-2023 Chronic Thyroid disorders (10 sources) Hypothyroidism; Translations: [Hypothyroidism, unspecified] Onset: 3 [...] Date Documented Date Episodic/Chronic Biliary tract disease (3 sources) Cholecystitis; Translations: [Cholecystitis, unspecified] Onset: 10-07-2013 10-07-2013 Episodic Cardiac dysrhythmias (4 sources) Palpitations; Translations: [Palpitations] Onset: 01-23-2011 01-23-2011 Episodic Diabetes mellitus without complication (8 sources) Ketonuria; Translations: [Acetonuria] Onset: 09-25-2022 Resolved: 10-13-2023 09-25-2022 Episodic Esophageal disorders (3 sources) Esophagitis; Translations: [Esophagitis, unspecified] Onset: 07-25-2011 07-25-2011 Episodic Genitourinary symptoms and ill-defined conditions (16 sources) Microscopic hematuria; Translations: [Other microscopic hematuria] Onset: 09-25-2022 Resolved: 10-13-2023 09-25-2022 Episodic Malaise and fatigue (6 sources) Fatigue; Translations: [Other fatigue] Onset: 08-07-2022 08-07-2022 Episodic Nonspecific chest pain (8 sources) Precordial pain; Translations: [Precordial pain] Onset: 01-23-2011 Resolved: 09-05-2016 09-05-2016 Episodic Other aftercare (4 sources) Long-term current use of systemic steroid; 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] Onset: 04-02-2023 04-02-2023 Episodic Other aftercare (2 sources) senior living (current) use of systemic steroids; Translations: [senior living (current) use of systemic steroids] Onset: 04-02-2023 Episodic Other bone disease and musculoskeletal deformities (3 sources) Osteopenia; Translations: [Other specified disorders of bone density and structure, unspecified site] Onset: 01-23-2012 01-23-2012 Episodic Other bone disease and musculoskeletal deformities (6 sources) Disorder of skeletal system; Translations: [Disorder of bone, unspecified] Onset: 08-07-2022 08-07-2022 Episodic Other connective tissue disease (1 source) Fibromyalgia; Translations: [Fibromyalgia] Onset: 08-07-2022 Episodic Other liver diseases (2 sources) Abnormal levels of other serum enzymes; Translations: [Abnormal levels of other serum enzymes] Onset: 09-25-2022 Episodic Other nervous system disorders (6 sources) Abnormal reflex; Translations: [Abnormal reflex] Onset: 08-07-2022 08-07-2022 Episodic Other nutritional; endocrine; and metabolic disorders (5 sources) Hypocalcemia; Translations: [Hypocalcemia] Onset: 09-25-2022 Resolved: 04-02-2023 09-25-2022 Chronic Courtney-; endo-; and myocarditis; cardiomyopathy (8 sources) [...] Results Test Name Value Interpretation Reference Range Facility [facility] 12-13-2021 OV Office Visit (GENSWS ) AYESHA CASTREJON ([id number]) 1950 F Date Time Provider Department 12/13/21 8:30 AM ROBYN MORALES During your visit today, we recorded the following information about you: Temperature Pulse Respiration Blood pressure 98.3 degrees 98/minute 14/minute 104/78 Weight Height 55.3 kg 1.537 m Robyn Morales MD 12/13/2021 9:14 AM Signed FOLLOW UP VISIT - ENDOSCOPY NAME: Ayesha Segovia Lucía CLINIC NO.: [id number] DATE OF SERVICE: 12/13/2021 : 1950 REFERRING [...] retrieved. Clips (MR conditional) were placed. 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 - The examination was otherwise normal on [...] instructed to follow-up with me as needed. Robyn Morales MD Referring Provider: ROBYN MORALES [[id number]] Allergies As of Date: 12/13/2021 Noted Allergy Reaction FLEXERIL (CYCLOBENZAPRINE HCL) 03/01/2005 5 - Intolerance Comments: retain water FOSAMAX (ALENDRONATE SODIUM) 03/01/2005 5 - Intolerance Comments: head ache ZANTAC (RANITIDINE HCL) 03/01/2005 5 - Intolerance Comments: retain water Date Reviewed: 12/13/2021 Reviewed by: Robyn Morales MD - Fully Assessed Reason for Visit: Post Op Follow Up [3947] Primary Visit Diagnosis:Adenomatous polyp of colon, unspecified part of colon [D12.6] Prescriptions as of 12/13/2021 - glucosamine-chondroitin 500-400 mg capsule Take 1 capsule by mouth once daily. - rOPINIRole (REQUIP) 0.5 mg tablet Take 0.5 mg by mouth daily at bedtime. Takes 1 MG by mouth daily - denosumab (PROLIA SUBCUTANEOUS) Inject subcutaneously once every 6 months. - VITAMIN B COMPLEX ORAL Take by mouth once daily. - MELOXICAM ORAL Take by mouth. - cetirizine HCl (ZYRTEC ORAL) Take by mouth once daily as needed. - fluticasone (FLONASE) 50 mcg/actuation nasal spray Use 1 Sheridan in each nostril as needed. - VITAMIN E ORAL Take by mouth once daily. - MAGNESIUM ORAL Take by mouth once daily. - POTASSIUM ORAL Take by mouth once daily. - pyridoxine HCl, vitamin B6, (VITAMIN B-6 ORAL) Take by mouth. - TURMERIC ORAL Take by mouth once daily. - MEDICATION, NON-DATABASE Joint Blend - multivitamin with minerals (HAIR,SKIN AND NAILS ORAL) Take by mouth. - levothyroxine 50 mcg tablet Take 1 tablet by mouth once daily. - CHOLECALCIFEROL, VITAMIN D3, (VITAMIN D-3 ORAL) Take by mouth once daily. 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 [facility] COLONOSCOPY SCREENINGon - [facility] Colonoscopyon 12-04-2021 Colonoscopy [facility] Gastrointestinal Endoscopy Patient Name: Ayesha Castrejon Procedure Date: 12/04/2021 9:41 AM Date of : 1950 Admit Type: Outpatient Age: 71 Gender: Female Note Status: Finalized Procedure: Colonoscopy Indications: Screening in patient at increased risk: Family history of 1st-degree relative with colorectal cancer Providers: Robyn Morales MD Patient Profile: This is a 71 year old female. Refer to note in patient chart for documentation of history and physical. Last Colonoscopy: 5 years ago. Referring Physician: Robyn Morales MD (Referring MD) Medicines: Midazolam 5 mg IV, Fentanyl 100 micrograms IV Complications: No immediate complications. Requesting Provider: Procedure: Pre-Anesthesia Assessment: - Prior to the procedure, a History and Physical was performed, and patient medications and allergies were reviewed. The patient is competent. The risks and benefits of the procedure and the sedation options and risks were discussed with the patient. All questions were answered and informed consent was obtained. Patient identification and proposed procedure were verified by the physician and the nurse in the procedure room. Airway Examination: normal oropharyngeal airway and neck mobility. Respiratory Examination: clear to auscultation. CV Examination: normal. Prophylactic Antibiotics: The patient does not require prophylactic antibiotics. Prior Anticoagulants: The patient has taken no anticoagulant or antiplatelet agents. ASA Grade Assessment: II - A patient with mild systemic disease. After reviewing the risks and benefits, the patient was deemed in satisfactory condition to undergo the procedure. The anesthesia plan was to use moderate sedation / analgesia (conscious sedation). Immediately prior to administration of medications, the patient was re-assessed for adequacy to receive sedatives. The heart rate, respiratory rate, oxygen saturations, blood pressure, adequacy of pulmonary ventilation, and response to care were monitored throughout the procedure. The physical status of the patient was re-assessed after the procedure. After I obtained informed consent, the scope was passed under direct vision. Throughout the procedure, the patient's blood pressure, pulse, and oxygen saturations were monitored continuously. The Colonoscope was introduced through the anus and advanced to the cecum, identified by the appendiceal orifice, ileocecal valve and palpation. The colonoscopy was performed without difficulty. The patient tolerated the procedure well. The quality of the bowel preparation was good. The ileocecal valve, appendiceal orifice, and rectum were photographed. Moderate Sedation: Moderate (conscious) sedation was personally administered by the endoscopist. The following parameters were monitored: oxygen saturation, heart rate, blood pressure, and response to care. Total physician intraservice time was 30 minutes. The administration of moderate sedation was initiated at 10:01 AM. Findings: The perianal and digital rectal examinations were normal. A small polyp was found in the proximal descending colon. The polyp was sessile. The polyp was removed with a cold biopsy forceps. Resection and retrieval were complete. A 7 mm polyp was found in the proximal rectum. The polyp was sessile. The polyp was removed with a piecemeal technique using a cold snare. Resection and retrieval were complete. To prevent bleeding after the polypectomy, two hemostatic clips were successfully placed (MR conditional). 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 There was no bleeding at the end of the procedure. The exam was otherwise without abnormality on direct and retroflexion views. A few small-mouthed diverticula were found in the sigmoid colon. Impression: - One small polyp in the proximal descending colon, removed with a cold biopsy forceps. Resected and retrieved. - One 7 mm polyp in the proximal rectum, removed piecemeal using a cold snare. Resected and retrieved. Clips (MR conditional) were placed. 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 - The examination was otherwise normal on direct and retroflexion views. - Diverticulosis in the sigmoid colon. Recommendation: - Discharge patient to home. - Resume previous diet. - Continue present medications. - Await pathology results. - Repeat colonoscopy in 1 year for surveillance based on pathology results. - Return to my office in 2 weeks. - Resume anticoagulant at prior dose. - Patient has a contact number available for emergencies. The signs and symptoms of potential delayed complications were discussed with the patient. Return to normal activities tomorrow. Written discharge instructions were provided to the patient. Procedure Code(s): --- Professional --- 74413, Colonoscopy, flexible; with removal of tumor(s), polyp(s), or other le (more content not included)... 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 VITAMIN E [...] entered by the nurse and reviewed by me Nursing Notes: Mary SousaGUERO 09/19/2021 9:10 AM Signed REVIEW OF SYSTEMS: [...] stent. Respiratory: The patient denies tuberculosis, denies pneu (more content not included)... [facility] NURSING PROGon 12-04-2021 NURSING PROG HNO ID: [id number] Author: Jane Suresh RN Service: ? Author Type: Registered Nurse Type: Nursing Progress Note Filed: 12/04/2021 10:54 AM Note Text: Arrived in phase II via cart, left [...] distended, denies pain or nausea. Resting comfortably. [facility] SURGICAL PATHOLOGYon 022 CASE REPORT [facility] Comment on above: Order Comment: Speci men Type: TISSUE SPECIMEN Ordering Facility: [facility] Address: [address] [place] [address] Result Comment: Surg ical Pathology Report Case: [id number] Authorizing Provider: Robyn Morales MD Collected: 12/04/2021 10:27 AM Ordering Location: Ambulatory Surgery Received: 12/04/2021 12:40 PM Pathologist: Heraclio Ty MD Specimens: A) - DESCENDING COLON POLYP B) - RECTAL POLYP Performed By: #### S #### [facility] CLIA [id number] [address] [place] [address] FINAL DIAGNOSIS [facility] Comment on above: Order Comment: Speci men Type: TISSUE SPECIMEN Ordering Facility: [facility] Address: [address] [place] [address] Result Comment: A. D escending colon polyp, biopsy: - Tubular adenoma. B. Rectal polyp, biopsy: - Tubular adenoma. JEL 12/05/2021 Performed By: #### S #### [facility] CLIA [id number] [address] [place] [address] OF [facility] FINAL PERFORMING LAB Normal [place] Comment on above: Order Comment: Speci men Type: TISSUE SPECIMEN Ordering Facility: [facility] Address: [address] [place] [address] Result Comment: Diag nostic interpretation performed at [facility], [address] [place] [address] CLIA# [id number] Employee Counselor: Gilmar Guzman M.D. Performed By: #### S #### [facility] CLIA [id number] [address] [place] [address] OF [facility] GROSS DESCRIPTION Normal [facility] Comment on above: Order Comment: Speci men Type: TISSUE SPECIMEN Ordering Facility: [facility] Address: [address] [place] [address] Result Comment: A. D ESCENDING COLON POLYP Received in formalin are two pieces of mcdonnell, soft tissue aggregating to 0.8 x 0.3 x 0.2 cm. Totally submitted in one cassette. B. RECTAL POLYP Received in formalin are four mcdonnell-brown polypoid segments of tissue ranging in size from 0.7 x 0.3 x 0.2 cm to 0.5 x 0.3 x 0.2 cm. No stalks are present. The lines of resection are noted. The specimens are not sectioned and totally submitted in cassette B1. Also received in the same container are multiple pieces of mcdonnell, soft tissue aggregating to 2 x 0.2 x 0.2 cm. Totally submitted in cassette B2. Gross examination performed at [facility], [address] [place] [id number] J 12/04/2021 10:21 PM Performed By: #### S #### [facility] [id number] CNOVon 09-19-2021 CNOV Office Visit (GENSWS ) AYESHA CASTREJON ([id number]) 1950 F Date Time Provider Department 09/19/21 9:00 AM ROBYN MORALES GENSWS During your visit today, we recorded the following information about you: Temperature Pulse Blood pressure Weight 98.7 degrees 92/minute 118/58 54.9 kg Height 1.524 m Mary SousaGUERO 09/19/2021 9:10 AM Signed REVIEW OF SYSTEMS: [...] last Mammogram screening? 2021 Last Colonoscopy: 2016 GUERO Lincoln MD 09/19/2021 10:13 AM Signed Bowel Preparation Instructions for: Golytely, Nulytely, Trilyte or Colyte (polyethylene glycol 3350 and electrolytes) IF YOU DO NOT FOLLOW THESE DIRECTIONS, YOUR COLONOSCOPY WILL BE CANCELLED. Stovall Instructions: ? Your bowel must be empty so that your doctor can clearly view your colon. Follow all of the instructions in this handout EXACTLY as they are written. ? Do NOT eat any solid food the ENTIRE day before your colonoscopy. Drink only clear liquids. ? Buy your bowel preparation at least 5 days before your colonoscopy. TRANSPORTATION on the Day of Your Exam A responsible person MUST be present with you at Check In prior to your colonoscopy and REMAIN in the endoscopy area until you are discharged. You are NOT ALLOWED to drive, take a taxi or bus, or leave the Endoscopy Center ALONE. If you do not have a responsible courier delivery driver (family member or friend) with you to take you home, your exam cannot be done with sedation and will be cancelled. Please bring a list of all of your current medications, including any Over-the Counter medications with you. Medications If you take insulin, diabetic medications or blood thinners such as Coumadin (warfarin), Plavix (clopidogrel), Ticlid (ticlopidine hydrochloride), Agrylin (anagrelide), Xarelto (Rivaroxaban), Pradaxa (Dabigatran), Eliquis (Apixaban), and Effient (Prasugrel). You MUST call the doctors who orders those medicines for instructions on altering the dosage before your colonoscopy. All other medications should be taken the day of the exam with a sip of water including ASPIRIN. Five (5) Days Before Your Colonoscopy ? Do NOT take medicines that stop diarrhea - such as Imodium, Kaopectate, or Pepto Bismol. ? Do NOT take fiber supplements - such as Metamucil, Citrucel, or Perdiem. ? Do NOT take products that contain iron - such as multi-vitamins (the label lists what is in the products). ? Do NOT take Vitamin E. Buy the prescription bowel preparation solution at your local pharmacy or drugstore pharmacy. 01/2019 Bowel Preparation Instructions for: Golytely, Nulytely, Trilyte or Colyte (polyethylene glycol 3350 and elect (more content not included)... [facility] Post Operative Note - ORon 0 05-16-2017 Post Operative Note - OR Post Operative Note:PreOp Diagnosis: chronic painPost-Procedure Diagnosis: chronic painProcedure: JULITO velasco removalSurgeon: kekeyResident/Fellow/Other Client Operations Manager: mastersAnesthesia: macEstimated Blood Loss (mL): noneSpecimen: yesFindings: baha attract magnet removedOperative Report Dictated:Dictation: yesDictated by: Sandoval of Dictation: [id number] job number: [id number]/Cosignature /Attestation:Attending Attestation I was present for the entire procedureElectronic Signatures:Ashley Scott) (Signed 16-May-2017 16:47) Authored: Post Operative Note, Signature/Cosignature/Attes tationLast Updated: 16-May-2017 16:47 by Ashley Scott) [facility] Preop Checkliston 05-16-2017 Preop Checklist Preop Checklist:Preo p Checklist:? Arrival Date 16-May-2017? Arrival Time 14:05? Procedure Type Right Baha explant? NPO Status 15-May-2017 23:00? ID Band On yes? Allergy Band yes? Consent Signed pending? H&P Complete pending? Anesthesia Assessment Completed pending? SCD's Applied not applicableCardiovascular Assessment:? Extremities warm, well perfusedRespiratory Assessment:? Respirations unlabored regular? Air Exchange equal, goodNeurological Assessment:? Level of Consciousness alert, oriented? Mobility moves all extremities? Able to Express Self yes? Age Appropriate yes? Emotional Status calmPreop Education:? Surgical Site Infection Prevention yes? Pain Scales and Management yesLanguage / Communication:? Language / Communication EnglishElectronic Signatures:Nayana Farrar (STAFF N) (Signed 16-May-2017 14:10) Authored: Preop ChecklistLast Updated: 16-May-2017 14:10 by Nayana Farrar (STAFF N) Normal 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 Clinical History:Chronic pain right eargross only: attention Dr. Gonzalez, re? to cochlearSpecimens Submitted As:A: BAHA RIGHT EAR MAGNET Gross Description:Received fresh labeled with the patient's name and hospital number, is a magnetwith the inscription Cochlear lot [id number]. The metallic surfaces are smooth andshiny. Soft tissue is not present. A photograph has been taken. 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 Work Phone: [phone] Office Visiton 09-11-2015 Documentation of current medications (procedure) Done Invalid Interpretation Code [employer] Work Phone: [phone] Protein mass conc Done [employer] Work Phone: [phone] Clinical Lists Updateon 05-18 Cholesterol 242 mg/dL Invalid Interpretation Code [employer] [facility] [employer] Work Phone: [phone] HDL Cholesterol 101 mg/dL Invalid Interpretation Code [employer] Work Phone: [phone] LDL Cholesterol 127 mg/dL Invalid Interpretation Code [employer] Work Phone: [phone] Thyroid stimulating hormone (TSH) 4.31 u[iU]/mL High [employer] Work Phone: [phone] Triglyceride 70 mg/dL Invalid Interpretation Code [employer] Work Phone: [phone] very low density lipoproteins 14 mg/dL Invalid Interpretation Code [employer] Work Phone: [phone] Office Visiton 08-24-2014 cardiac risk group B Invalid Interpretation Code [employer] [facility] Work Phone: [phone] General cardiovascular disease 10Y risk [#] [place].D'Agost[place] o 2 % Invalid Interpretation Code [employer] [facility] Work Phone: [phone] Tobacco smoking status NHIS Former smoker [employer] Work Phone: [phone] Tobacco use CPHS Former smoker Invalid Interpretation Code [employer] 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 04-28-2014 Anion gap 5 mmol/L Invalid Interpretation Code [facility] Work Phone: [phone] Anion gap molar conc 5 mmol/L [facility] Work Phone: [phone] BUN/Creatinine Ratio 37.1 mg/mg High [facility] Work Phone: [phone] Calcium 8.6 mg/dL Invalid Interpretation Code [facility] Work Phone: [phone] Chloride 107 mmol/L Invalid Interpretation Code [facility] Work Phone: [phone] CO2 30.0 mmol/L Invalid Interpretation Code [facility] Work Phone: [phone] CO2 ppres (BldV) 30.0 mmol/L [facility] Work Phone: [phone] Creatinine 0.7 mg/dL Invalid Interpretation Code [facility] Work Phone: [phone] Erythrocytes (RBC) 4.0 10*6/uL Low [facility] Work Phone: [phone] Glucose 83 mg/dL Invalid Interpretation Code [facility] Work Phone: [phone] Glucose mass conc 83 mg/dL [facility] Work Phone: [phone] Hematocrit (HCT) 38.0 % Invalid Interpretation Code [facility] Work Phone: [phone] Hematocrit Volume Fraction (Bld) 38.0 % [facility] Work Phone: [phone] Hemoglobin (HGB) 12.3 g/dL Invalid Interpretation Code [facility] Work Phone: [phone] MCH 30.8 pg Invalid Interpretation Code [facility] Work Phone: [phone] MCH Entitic mass (RBC) 30.8 pg [facility] Work Phone: [phone] MCHC 32.4 g/dL Invalid Interpretation Code [facility] Work Phone: [phone] MCHC mass conc (RBC) 32.4 g/dL [facility] Work Phone: [phone] MCV 95.0 fL Invalid Interpretation Code [facility] Work Phone: [phone] MCV Entitic volume (RBC) 95.0 fL [facility] Work Phone: [phone] Platelets 225 10*3/mm3 Invalid Interpretation Code [facility] Work Phone: [phone] Platelets #/vol (Bld) 225 10*3/mm3 [facility] Work Phone: [phone] Potassium 3.7 mmol/L Invalid Interpretation Code [facility] Work Phone: [phone] RBC #/vol (Bld) 4.0 10*6/uL Low [facility] Work Phone: [phone] Sodium 142 mmol/L Invalid Interpretation Code [facility] Work Phone: [phone] Urea nitrogen 26 mg/dL High [employer] [facility] Work Phone: [phone] WBC #/vol (Bld) 3.3 10*3/uL Low [employer] [facility] Work Phone: [phone] WBC (Leukocytes) 3.3 10*3/uL Low [employer] 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 ECG Obse rvationson 08-12-2012 GE use only - for LinkLogic import when terms are not otherwise specified 399 ms Invalid Interpretation Code [employer] [facility] Work Phone: [phone] QTc Knight 399 ms [employer] [facility] Work Phone: [phone] Replaced Document: [facility] E CG Observationson 08-12-2012 EKG QRS axis 36 deg [employer] [facility] Work Phone: [phone] electrocardiogram interpretation Sinus Rhythm - frequent ectopic ventricular beat s # VECs = 2BORDERLINE RHYTHM Invalid Interpretation Code [facility] Work Phone: [phone] Interpretation Sinus Rhythm - frequ ent ectopic ventricular beat s # VECs = 2BORDERLINE RHYTHM [employer] [facility] Work Phone: [phone] P [place] 48 deg [facility] Work Phone: [phone] P wave axis, electrocardiogram 48 deg Invalid Interpretation Code [facility] Work Phone: [phone] AL Interval 174 ms [facility] Work Phone: [phone] AL interval, electrocardiogram 174 ms Invalid Interpretation Code [facility] Work Phone: [phone] Pulse (Heart Rate) 70 /min Invalid Interpretation Code [facility] Work Phone: [phone] Pulse (Heart Rate) 401 ms Invalid Interpretation Code [facility] Work Phone: [phone] QRS axis, electrocardiogram 36 deg Invalid Interpretation Code [facility] Work Phone: [phone] QRS Duration 94 ms [facility] Work Phone: [phone] QRS duration, electrocardiogram 94 ms Invalid Interpretation Code [facility] Work Phone: [phone] QT Interval new path ms [facility] Work Phone: [phone] QT interval, electrocardiogram new path ms Invalid Interpretation Code [facility] Work Phone: [phone] T [place] 45 deg [facility] Work Phone: [phone] T wave axis, electrocardiogram 45 deg Invalid Interpretation Code [facility] Work Phone: [phone] [facility] Thyroxine (T4) free 0.88 ng/dL Invalid Interpretation Code [facility] Work Phone: [phone] Clinical Lists Update: [facility] 03-26-2012 Alanine aminotransferase (ALT) 18 U/L Invalid Interpretation Code [facility] Work Phone: [phone] Alkaline phosphatase (ALP) 146 U/L High [facility] Work Phone: [phone] ALP enzyme act/vol (Bld) 146 U/L High [facility] Work Phone: [phone] Aspartate aminotransferase (AST) 15 U/L Invalid Interpretation Code [facility] Work Phone: [phone] Erythrocyte sedimentation rate 10 mm/h Invalid Interpretation Code [facility] Work Phone: [phone] Clinical Lists Update: [facility]03-13-2011 Bilirubin (total) 0.50 mg/dL Invalid Interpretation Code [facility] Work Phone: [phone] Erythrocyte distribution width Ratio (RBC) 13.1 % [facility] Work Phone: [phone] MCHC 34.2 % Invalid Interpretation Code [facility] Work Phone: [phone] MCHC mass conc (RBC) 34.2 % [facility] Work Phone: [phone] RDW-CA 13.1 % Invalid Interpretation Code [facility] Work Phone: [phone] Vital Signs Date Time Vital Sign Value Performing Clinician Facility 11-13-2023 11:03-0400 Body mass index (BMI) [Ratio] 22.09 kg/m2 Maren Sarthak DUST COLLECTOR TREATER.MACHINE RUG CLEANER Work Phone: [facility] 11-13-2023 11:03-0400 Body temperature 98.01 [degF] Maren Ambrizir DUST COLLECTOR TREATER.MACHINE RUG CLEANER Work Phone: [facility] 11-13-2023 11:03-0400 Body weight 52.16 kg Maren Sarthak DUST COLLECTOR TREATER.MACHINE RUG CLEANER Work Phone: [facility] 11-13-2023 11:03-0400 Diastolic blood pressure 76 mm[Hg] Maren Sarthak DUST COLLECTOR TREATER.MACHINE RUG CLEANER Work Phone: [facility] 11-13-2023 11:03-0400 Heart rate 64 /min Maren Sarthak DUST COLLECTOR TREATER.MACHINE RUG CLEANER Work Phone: [facility] 11-13-2023 11:03-0400 Respiratory rate 14 /min Maren Ambrizir DUST COLLECTOR TREATER.MACHINE RUG CLEANER Work Phone: [facility] 11-13-2023 11:03-0400 SaO2% (BldA) [Mass fraction] 99 % Maren Sarthak DUST COLLECTOR TREATER.MACHINE RUG CLEANER Work Phone: [facility] 11-13-2023 11:03-0400 Systolic blood pressure 120 mm[Hg] Maren Sarthak DUST COLLECTOR TREATER.MACHINE RUG CLEANER Work Phone: [facility] 10-13-2023 09:58-0400 Body height 152.4 cm Caryn Swain Jr., DO Work Phone: [facility] 10-13-2023 09:58-0400 Body mass index (BMI) [Ratio] 24.22 kg/m2 Caryn Hoshaylashavonne Nolen, DO Work Phone: [facility] 10-13-2023 09:58-0400 Body weight 56.25 kg Caryn Swain Kavita, DO Work Phone: [facility] 10-13-2023 09:58-0400 Diastolic blood pressure 74 mm[Hg] Caryn Swain Kavita, DO Work Phone: [facility] 10-13-2023 09:58-0400 Heart rate 65 /min Caryn Swain Jr., DO Work Phone: [facility] 10-13-2023 09:58-0400 SaO2% (BldA) [Mass fraction] 99 % Caryn Swain Jr., DO Work Phone: [facility] 10-13-2023 09:58-0400 Systolic blood pressure 130 mm[Hg] Caryn Swain Jr., DO Work Phone: [facility] 04-02-2023 10:04-0500 Body height 152.4 cm Caryn Swain Jr., DO Work Phone: [facility] 04-02-2023 10:04-0500 Body mass index (BMI) [Ratio] 24.22 kg/m2 Caryn Swain Jr., DO Work Phone: [facility] 04-02-2023 10:04-0500 Body weight 56.25 kg Caryn Swain Jr., DO Work Phone: [facility] 04-02-2023 10:04-0500 Diastolic blood pressure 70 mm[Hg] Caryn Swain Jr., DO Work Phone: [facility] 04-02-2023 10:04-0500 Systolic blood pressure 116 mm[Hg] Caryn Swain Jr., DO Work Phone: [facility] 09-25-2022 12:33-0400 Body height 153.7 cm Caryn Swain Jr., DO Work Phone: [facility] 09-25-2022 12:33-0400 Body mass index (BMI) [Ratio] 23.97 kg/m2 Caryn Swain Jr., DO Work Phone: [facility] 09-25-2022 12:33-0400 Body temperature 98.71 [degF] Caryn Swain Jr., DO Work Phone: [facility] 09-25-2022 12:33-0400 Body weight 56.6 kg Caryn Hoshaylashavonne Patel., DO Work Phone: [facility] 09-25-2022 12:33-0400 Diastolic blood pressure 80 mm[Hg] Caryn Georgiashaylashavonne ., DO Work Phone: [facility] 09-25-2022 12:33-0400 Systolic blood pressure 130 mm[Hg] Caryn Georgiashaylashavonne Patel., DO Work Phone: [facility] 08-07-2022 11:37-0400 Body height 153.7 cm Caryn Swain Jr., DO Work Phone: [facility] 08-07-2022 11:37-0400 Body mass index (BMI) [Ratio] 23.97 kg/m2 Caryn Swain Jr., DO Work Phone: [facility] 08-07-2022 11:37-0400 Body temperature 98.71 [degF] Caryn Swain Jr., DO Work Phone: [facility] 08-07-2022 11:37-0400 Body weight 56.61 kg Caryn Georgiashaylashavonne Patel., DO Work Phone: [facility] 08-07-2022 11:37-0400 Diastolic blood pressure 78 mm[Hg] Caryn Swain Jr., DO Work Phone: [facility] 08-07-2022 11:37-0400 Systolic blood pressure 122 mm[Hg] Caryn Swain Jr., DO Work Phone: [facility] 12-13-2021 08:17-0400 Body height 153.7 cm Robyn Morales MD Work Phone: [facility] 12-13-2021 08:17-0400 Body temperature 98.29 [degF] Robyn Morales MD Work Phone: [facility] 12-13-2021 08:17-0400 Body weight 55.34 kg Robyn Morales MD Work Phone: [facility] 12-13-2021 08:17-0400 Diastolic blood pressure 78 mm[Hg] Robyn Morales MD Work Phone: [facility] 12-13-2021 08:17-0400 Heart rate 98 /min Robyn Morales MD Work Phone: [facility] 12-13-2021 08:17-0400 Respiratory rate 14 /min Robyn Morales MD Work Phone: [facility] 12-13-2021 08:17-0400 SaO2% (BldA) [Mass fraction] 99 % Robyn Morales MD Work Phone: [facility] 12-13-2021 08:17-0400 Systolic blood pressure 104 mm[Hg] Robyn Morales MD Work Phone: [facility] 12-04-2021 11:09-0400 Diastolic blood pressure 67 mm[Hg] Robyn Morales MD Work Phone: [facility] 12-04-2021 11:09-0400 Heart rate 67 /min Robyn Morales MD Work Phone: [facility] 12-04-2021 11:09-0400 Respiratory rate 16 /min Robyn Morales MD Work Phone: [facility] 12-04-2021 11:09-0400 SaO2% (BldA) [Mass fraction] 99 % Robyn Morales MD Work Phone: [facility] 12-04-2021 11:09-0400 Systolic blood pressure 133 mm[Hg] Robyn Morales MD Work Phone: [facility] 12-04-2021 09:32-0400 Body temperature 98.49 [degF] Robyn Morales MD Work Phone: [facility] 12-04-2021 09:32-0400 Body weight 54.9 kg Robyn Morales MD Work Phone: [facility] 09-09-2016 14:48-0400 BMI (Body Mass Index) 23.24 kg/m2 Anil Araya [facility] Work Phone: 09-09-2016 14:48-0400 BP Diastolic 76 mm[Hg] Anil Pa [facility] Work Phone: 09-09-2016 14:48-0400 BP Systolic 106 mm[Hg] Dgtalulysses Thierno [facility] Work Phone: 09-09-2016 14:48-0400 Height 154.94 cm Dgtalulysses Pa [facility] Work Phone: 09-09-2016 14:48-0400 Pulse (Heart Rate) 74 /min Dgtalulysses Pa [facility] Work Phone: 09-09-2016 14:48-0400 Respiratory Rate 18 /min Dgtalulysses Pa [facility] Work Phone: 09-09-2016 14:48-0400 Weight 55.79 kg Dgnicki Pa [facility] Work Phone: 09-11-2015 13:51-0400 BMI (Body Mass Index) 23.99 kg/m2 Zakiya Araya [facility] Work Phone: 09-11-2015 13:51-0400 BP Diastolic 74 mm[Hg] Zakiya [facility] Work Phone: 09-11-2015 13:51-0400 BP Systolic 106 mm[Hg] Zakiya [facility] Work Phone: 09-11-2015 13:51-0400 BSA (Body Surface Area) 1.56 m2 Zakiya Wise RN [facility] Work Phone: 09-11-2015 13:51-0400 Pulse (Heart Rate) 68 /min Zakiya Wise RN [facility] Work Phone: 09-11-2015 13:51-0400 Respiratory Rate 16 /min Zakiya Wise RN [facility] [employer] Work Phone: 09-11-2015 13:51-0400 Weight 57.61 kg Zakiya Wise RN [facility] Work Phone: 08-12-2012 14:16-0400 Heart rate 70 /min [facility] [employer] Work Phone: 08-12-2012 14:16-0400 Heart rate 401 ms [employer] Work Phone: 08-02-2011 15:13-0400 Height 154.94 cm Zakiya Wise RN [facility] [employer] Work Phone: Encounters Encounter Date Encounter Type Care Provider Facility Start: 11-13-2023 End: 11-13-2023 Patient encounter procedure Maren De León APRN.MACHINE RUG CLEANER Work Phone: General Surgery Comment on above: Screen for colon can cer (Primary Dx); Adenomatous polyp of colon, unspecified part of colon; Family history of colon cancer in father Start: 10-13-2023 End: 10-13-2023 Office outpatient visit 40 minutes [facility] Comment on above: Dry mouth (Primary D x); Xerostomia; Hypoproteinemia; Hypothyroidism, unspecified type; Fibromyalgia; History of neuropathy; Keratoconjunctivitis sicca; DDD (degenerative disc disease), cervical; Lumbar degenerative disc disease; Thoracogenic scoliosis of thoracic region; Thoracic degenerative disc disease; Leukopenia, unspecified type; Lymphopenia; SCOTT positive; Dry eyes; Encounter for monitoring denosumab therapy; Family history of rheumatoid arthritis; History of fibromyalgia; History of osteoporosis; 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); Long-term use of high-risk medication; Neutropenia, unspecified type; Positive double stranded DNA antibody test Start: 10-13-2023 ambulatory MALVIN DOUGLAS [facility] Start: 09-18-2023 End: 09-19-2023 Office outpatient new 45 minutes Srini Daley MD Work Phone: [facility] [place] Comment on above: Diplopia (Primary Dx ); Esotropia, right eye Start: 09-18-2023 ambulatory SRINI DALEY [facility] Start: 04-02-2023 End: 04-02-2023 Office outpatient visit 25 minutes Caryn Swain DO Work Phone: [facility] Comment on above: Hypothyroidism, unsp ecified type (Primary Dx); Keratoconjunctivitis sicca; History of neuropathy; Fibromyalgia; Thoracic degenerative disc disease; Thoracogenic scoliosis of thoracic region; Lumbar degenerative disc disease; DDD (degenerative disc disease), cervical; Long-term use of high-risk medication; senior living current use of systemic steroids; History of osteoporosis; History of fibromyalgia; Family history of rheumatoid arthritis; Dry eyes; Leukopenia, unspecified type; Other proteinuria; Positive double stranded 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 [facility] Start: 09-25-2022 End: 09-25-2022 Office outpatient visit 40 minutes Caryn Swain DO Work Phone: [facility] Comment on above: Hypocalcemia (Primar y Dx); Fibromyalgia; History of neuropathy; DDD (degenerative disc disease), cervical; Lumbar degenerative disc disease; Thoracogenic scoliosis of thoracic region; Thoracic degenerative disc disease; Leukopenia, unspecified type; Abnormal serum KIMBERLY level; SCOTT positive; Family history of rheumatoid arthritis; Other microscopic hematuria; History of fibromyalgia; History of osteoporosis; Ketonuria; Long-term use of high-risk medication; Positive double stranded DNA antibody test; Other proteinuria Start: 08-13-2022 ambulatory MALVIN DOUGLAS [facility] Start: 08-07-2022 End: 08-07-2022 Office outpatient new 45 minutes Caryn Swain DO Work Phone: [facility] Comment on above: Cervicalgia (Primary Dx); Dorsalgia; History of neuropathy; DDD (degenerative disc disease), cervical; Disorder of bone and cartilage; Lumbar degenerative disc disease; Leukopenia, unspecified type; SCOTT positive; Family history of rheumatoid arthritis; Fatigue, unspecified type; Fibromyalgia; History of fibromyalgia; History of osteoporosis; Long-term use of high-risk medication; Hypothyroidism, unspecified type; Abnormal reflexes of lower extremity; Ankylosing spondylitis, unspecified site of spine Start: 12-13-2021 End: 12-13-2021 ambulatory MALVIN DOUGLAS Facility:[facility] Start: 12-13-2021 End: 12-13-2021 Patient encounter procedure Robyn Morales MD Work Phone: General Surgery Comment on above: Adenomatous polyp of colon, unspecified part of colon (Primary Dx) Start: 12-04-2021 End: 12-04-2021 ambulatory MALVIN DOUGLAS Facility:[facility] Start: 12-04-2021 End: 12-04-2021 Subsequent hospital visit by physician Robyn Morales MD Work Phone: Ambulatory Surgery Comment on above: Family history of ma lignant neoplasm of gastrointestinal tract [Z80.0] Start: 09-19-2021 End: 09-19-2021 ambulatory MALVIN DOUGLAS Facility:[facility] Start: 05-16-2017 End: 05-16-2017 Ambulatory Ashley Scott Facility:[facility] Start: 11-13-2016 Ambulatory Monica Talamantes Fac ility:[facility] Start: 09-12-2016 Ambulatory Reema Nelson Facili ty:[facility] Procedures Date Procedure Procedure Detail Performing Clinician Start: 09-25-2022 End: 10-13-2023 Laboratory test result abnormal Abnormal serum KIMBERLY level Caryn Swain DO Work Phone: Start: 12-04-2021 Colonoscopy flx dx w/collj spec when pfrmd Robyn Morales MD Work Phone: Start: 12-04-2021 Colonoscopy Robyn steele MD Work Phone: Start: 08-24-2018 Mammography Robyn steele MD Work Phone: Start: 05-16-2017 Anesthesia external middle & inner ear w/bx nos Ashley Haseeb Start: 05-16-2017 Unlisted procedure i nner ear Ashley Haseeb Start: 09-09-2016 End: 09-09-2016 Follow Up Appt [...] Up Appt Other Mac Bynum MD Start: 10-18-2010 Lipid 1996 panel - S darline or Plasma Maren De León DUST COLLECTOR TREATER.MACHINE RUG CLEANER Work Phone: Laboratory test resu lt abnormal Abnormal serum KIMBERLY level Caryn Swain DO Work Phone: Plan of Treatment Date Care Activity Detail Author Start: 09-08-2033 Tetanus vaccination TETANUS [facility] Start: 09-08-2033 Urine microalbumin profile DTaP,Tdap,Td Vaccine (4 - Td or Tdap) [facility] Start: 12-04-2026 Colonoscopy COLONOSCOPY [facility] Start: 12-04-2026 COLORECTAL CANCER SCREENING COLORECTAL CANCER SCREENING [facility] Start: 09-08-2024 Tetanus vaccination TETANUS [facility] Start: 01-29-2024 End: 01-29-2024 Patient encounter procedure 01/29/2024 2:00 PM EST Office Visit [facility] [place] [address] [place] [id number] Srini Daley MD [address] [place], [place] [id number] [facility] [place] Start: 12-24-2023 End: 12-24-2023 Patient encounter procedure 12/24/2023 9:45 AM EST Appointment Ambulatory Surgery [address] [place] [address] Robyn Morales MD [address] [address] Ambulatory Surgery Start: 12-05-2023 Colonoscopy COLONOSCOPY [facility] Start: 12-05-2023 COLORECTAL CANCER SCREENING COLORECTAL CANCER SCREENING [facility] Start: 12-05-2023 Screening for malignant neoplasm of colon [facility] Start: 11-27-2023 End: 08-26-2024 Sensormotor xm w/client relationship manager zaid ocular devij w/i&r spx AL SENSORMOTOR XM W/PROFESSOR OF SPECIAL EDUCATION ZAID OCULAR DEVIJ W/I&R SPX AL Charge Routine Diplopia Expected: 11/27/2023 (Approximate), Expires: 08/26/[address] [facility] Comment on above: Expected: 11/27/2023 (Approximate), Expi res: 08/26/2024 Start: 11-06-2023 End: 11-06-2023 Patient encounter procedure 11/06/2023 1:00 PM EDT Office Visit [facility] [place] [address] [place] [address] Umu Nash MD [address] [place] [address] [facility] [place] Start: 10-19-2023 Covid-19 Vaccine ( season) Covid-19 Vaccine ( season) [facility] Start: 10-19-2023 Influenza vaccination INFLUENZA VACCINE (#1) [facility] Start: 10-13-2023 End: 10-13-[address] 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 History of osteoporosis History of fibromyalgia Family history of rheumatoid arthritis Dry eyes Leukopenia, unspecified type Other proteinuria Positive double stranded DNA antibody test Ketonuria Other microscopic hematuria SCOTT positive Abnormal serum KIMBERLY level Expected: 09/14/2023 (Approximate), Expires: 04/02/2024 [facility] Comment on above: Expected: 09/14/2023 (Approximate), Expi res: 04/02/2024 Start: 09-14-2023 End: 04-02-2024 Angiotensin converting enzyme [Enzymatic activity/volume] in Serum or Plasma ANGIOTENSIN CONVERTING ENZYME Lab Routine Hypothyroidism, unspecified type Keratoconjunctivitis sicca History of neuropathy Fibromyalgia Thoracic degenerative disc disease Thoracogenic scoliosis of thoracic region Lumbar degenerative disc disease DDD (degenerative disc disease), cervical Long-term use of high-risk medication 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 History of osteoporosis History of fibromyalgia Family history of rheumatoid arthritis Dry eyes Leukopenia, unspecified type Other proteinuria Positive double stranded DNA antibody test Ketonuria Other microscopic hematuria SCOTT positive Abnormal serum KIMBERLY level Expected: 09/14/2023 (Approximate), Expires: 04/02/2024 [facility] Comment on above: Expected: 09/14/2023 (Approximate), Expi res: 04/02/2024 Start: 09-14-2023 End: 04-02-2024 C-reactive protein C REACTIVE PROTEIN Lab Routine Hypothyroidism, unspecified type Keratoconjunctivitis sicca History of neuropathy Fibromyalgia Thoracic degenerative disc disease Thoracogenic scoliosis of thoracic region Lumbar degenerative disc disease DDD (degenerative disc disease), cervical Long-term use of high-risk medication senior living current use of systemic steroids History of osteoporosis History of fibromyalgia Family history of rheumatoid arthritis Dry eyes Leukopenia, unspecified type Other proteinuria Positive double stranded DNA antibody test Ketonuria Other microscopic hematuria SCOTT positive Abnormal serum KIMBERLY level Expected: 09/14/2023 (Approximate), Expires: 04/02/2024 [facility] Comment on above: Expected: 09/14/2023 (Approximate), Expi res: 04/02/2024 Start: 09-14-2023 End: 04-02-2024 C3 COMPLEMENT C3 COMPLEMENT Lab Routine Hypothyroidism, unspecified type Keratoconjunctivitis sicca History of neuropathy Fibromyalgia Thoracic degenerative disc disease Thoracogenic scoliosis of thoracic region Lumbar degenerative disc disease DDD (degenerative disc disease), cervical Long-term use of high-risk medication senior living current use of systemic steroids History of osteoporosis History of fibromyalgia Family history of rheumatoid arthritis Dry eyes Leukopenia, unspecified type Other proteinuria Positive double stranded DNA antibody test Ketonuria Other microscopic hematuria SCOTT positive Abnormal serum KIMBERLY level Expected: 09/14/2023 (Approximate), Expires: 04/02/2024 [facility] Comment on above: Expected: 09/14/2023 (Approximate), Expi res: 04/02/2024 Start: 09-14-2023 End: 04-02-2024 C4 COMPLEMENT C4 COMPLEMENT Lab Routine Hypothyroidism, unspecified type Keratoconjunctivitis sicca History of neuropathy Fibromyalgia Thoracic degenerative disc disease Thoracogenic scoliosis of thoracic region Lumbar degenerative disc disease DDD (degenerative disc disease), cervical Long-term use of high-risk medication 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 History of osteoporosis History of fibromyalgia Family history of rheumatoid arthritis Dry eyes Leukopenia, unspecified type Other proteinuria Positive double stranded DNA antibody test Ketonuria Other microscopic hematuria SCOTT positive Abnormal serum KIMBERLY level Expected: 09/14/2023 (Approximate), Expires: 04/02/2024 [facility] Comment on above: Expected: 09/14/2023 (Approximate), Expi res: 04/02/2024 Start: 09-14-2023 End: 04-02-2024 CK CK Lab Routine Hypothyroidism, unspecified type Keratoconjunctivitis sicca History of neuropathy Fibromyalgia Thoracic degenerative disc disease Thoracogenic scoliosis of thoracic region Lumbar degenerative disc disease DDD (degenerative disc disease), cervical Long-term use of high-risk medication senior living current use of systemic steroids History of osteoporosis History of fibromyalgia Family history of rheumatoid arthritis Dry eyes Leukopenia, unspecified type Other proteinuria Positive double stranded DNA antibody test Ketonuria Other microscopic hematuria SCOTT positive Abnormal serum KIMBERLY level Expected: 09/14/2023 (Approximate), Expires: 04/02/2024 [facility] Comment on above: Expected: 09/14/2023 (Approximate), Expi res: 04/02/2024 Start: 09-14-2023 End: 04-02-2024 Complete blood count with white cell differential, automated CBC, EDIF, PLATELET Lab Routine Hypothyroidism, unspecified type Keratoconjunctivitis sicca History of neuropathy Fibromyalgia Thoracic degenerative disc disease Thoracogenic scoliosis of thoracic region Lumbar degenerative disc disease DDD (degenerative disc disease), cervical Long-term use of high-risk medication 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 History of osteoporosis History of fibromyalgia Family history of rheumatoid arthritis Dry eyes Leukopenia, unspecified type Other proteinuria Positive double stranded DNA antibody test Ketonuria Other microscopic hematuria SCOTT positive Abnormal serum KIMBERLY level Expected: 09/14/2023 (Approximate), Expires: 04/02/2024 [facility] Comment on above: Expected: 09/14/2023 (Approximate), Expi res: 04/02/2024 Start: 09-14-2023 End: 04-02-2024 Comprehensive metabolic 2000 panel - Serum or Plasma COMPREHENSIVE METABOLIC PANEL Lab Routine Hypothyroidism, unspecified type Keratoconjunctivitis sicca History of neuropathy Fibromyalgia Thoracic degenerative disc disease Thoracogenic scoliosis of thoracic region Lumbar degenerative disc disease DDD (degenerative disc disease), cervical Long-term use of high-risk medication 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 History of osteoporosis History of fibromyalgia Family history of rheumatoid arthritis Dry eyes Leukopenia, unspecified type Other proteinuria Positive double stranded DNA antibody test Ketonuria Other microscopic hematuria SCOTT positive Abnormal serum KIMBERLY level Expected: 09/14/2023 (Approximate), Expires: 04/02/2024 [facility] Comment on above: Expected: 09/14/2023 (Approximate), Expi res: 04/02/2024 Start: 09-14-2023 End: 04-02-2024 SEDIMENTATION RATE, AUTOMATED SEDIMENTATION RATE, AUTOMATED Lab Routine Hypothyroidism, unspecified type Keratoconjunctivitis sicca History of neuropathy Fibromyalgia Thoracic degenerative disc disease Thoracogenic scoliosis of thoracic region Lumbar degenerative disc disease DDD (degenerative disc disease), cervical Long-term use of high-risk medication 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 History of osteoporosis History of fibromyalgia Family history of rheumatoid arthritis Dry eyes Leukopenia, unspecified type Other proteinuria Positive double stranded DNA antibody test Ketonuria Other microscopic hematuria SCOTT positive Abnormal serum KIMBERLY level Expected: 09/14/2023 (Approximate), Expires: 04/02/2024 [facility] Comment on above: Expected: 09/14/2023 (Approximate), Expi res: 04/02/2024 Start: 09-14-2023 End: 04-02-2024 SJOGREN'S AB SSA,SSB SJOGREN'S AB SSA,SSB Lab Routine Hypothyroidism, unspecified type Keratoconjunctivitis sicca History of neuropathy Fibromyalgia Thoracic degenerative disc disease Thoracogenic scoliosis of thoracic region Lumbar degenerative disc disease DDD (degenerative disc disease), cervical Long-term use of high-risk medication senior living current use of systemic steroids History of osteoporosis History of fibromyalgia Family history of rheumatoid arthritis Dry eyes Leukopenia, unspecified type Other proteinuria Positive double stranded DNA antibody test Ketonuria Other microscopic hematuria SCOTT positive Abnormal serum KIMBERLY level Expected: 09/14/2023 (Approximate), Expires: 04/02/2024 [facility] Comment on above: Expected: 09/14/2023 (Approximate), Expi res: 04/02/2024 Start: 09-14-2023 End: 04-02-2024 Urinalysis dipstick W Reflex Microscopic panel - Urine URINE MICROSCOPIC Fluids Routine Hypothyroidism, unspecified type Keratoconjunctivitis sicca History of neuropathy Fibromyalgia Thoracic degenerative disc disease Thoracogenic scoliosis of thoracic region Lumbar degenerative disc disease DDD (degenerative disc disease), cervical Long-term use of high-risk medication senior living current use of systemic steroids History of osteoporosis History of fibromyalgia Family history of rheumatoid arthritis Dry eyes Leukopenia, unspecified type Other proteinuria Positive double stranded DNA antibody test Ketonuria Other microscopic hematuria SCOTT positive Abnormal serum KIMBERLY level Expected: 09/14/2023 (Approximate), [facility]pires: [facility] Expected: 09/14/2023 (Approximate), Expi res: 04/02/2024 Start: 09-14-2023 End: 04-02-2024 Urinalysis, reagent strip without microscopy URINALYSIS, MACRO Fluids Routine Hypothyroidism, unspecified type Keratoconjunctivitis sicca History of neuropathy Fibromyalgia Thoracic degenerative disc disease Thoracogenic scoliosis of thoracic region Lumbar degenerative disc disease DDD (degenerative disc disease), cervical Long-term use of high-risk medication senior living current use of systemic steroids History of osteoporosis History of fibromyalgia Family history of rheumatoid arthritis Dry eyes Leukopenia, unspecified type Other proteinuria Positive double stranded DNA antibody test Ketonuria Other microscopic hematuria SCOTT positive Abnormal serum KIMBERLY level Expected: 09/14/2023 (Approximate), Expires: [facility]02/2024 [facility] Comment on above: Expected: 09/14/2023 (Approximate), Expi res: 04/02/2024 Start: 04-02-2023 End: 04-02-2023 Patient encounter procedure 04/02/2023 10:00 AM EST Office Visit [facility] [address] [place] [phone] Caryn Swain Jr., DO [address] [place] [id number] [facility] Start: 02-17-2023 Advance Directive Discussion Advance Directive Discussion [facility] Start: 10-18-2022 COVID-19 VACCINE () COVID-19 VACCINE () [facility] Start: 10-18-2022 Influenza vaccination INFLUENZA VACCINE (#1) [facility] Start: 09-25-2022 End: 09-25-2022 Patient encounter procedure 09/25/2022 12:30 PM EDT Office Visit [facility] [address] [place] [phone] Caryn Swain Jr., DO [address] [place] [phone] [facility] Start: 08-07-2022 End: 08-08-2023 SCOTT MULTIPLEX SCRN WITH REFLEX SCOTT MULTIPLEX SCRN WITH REFLEX Lab Routine Cervicalgia Dorsalgia History of neuropathy DDD (degenerative disc disease), cervical Disorder of bone and cartilage Lumbar degenerative disc disease Leukopenia, unspecified type SCOTT positive Family history of rheumatoid arthritis Fatigue, unspecified type Fibromyalgia History of fibromyalgia History of osteoporosis Long-term use of high-risk medication Hypothyroidism, unspecified type Abnormal reflexes of lower extremity Expected: 08/07/2022 (Approximate), Expires: 08/08/2023 [facility] Comment on above: Expected: 08/07/2022 (Approximate), Expi res: 08/08/2023 Start: 08-07-2022 End: 08-08-2023 ANCA INIT SCRN (ANCA, PR3AB, MPO) ANCA INIT SCRN (ANCA, PR3AB, MPO) Lab Routine Cervicalgia Dorsalgia History of neuropathy DDD (degenerative disc disease), cervical Disorder of bone and cartilage Lumbar degenerative disc disease Leukopenia, unspecified type SCOTT positive Family history of rheumatoid arthritis Fatigue, unspecified type Fibromyalgia History of fibromyalgia History of osteoporosis Long-term use of high-risk medication Hypothyroidism, unspecified type Abnormal reflexes of lower extremity Expected: 08/07/2022 (Approximate), Expires: 08/08/2023 [facility] Comment on above: Expected: 08/07/2022 (Approximate), Expi res: 08/08/2023 Start: 08-07-2022 End: 08-08-2023 Angiotensin converting enzyme [Enzymatic activity/volume] in Serum or Plasma ANGIOTENSIN CONVERTING ENZYME Lab Routine Cervicalgia Dorsalgia History of neuropathy DDD (degenerative disc disease), cervical Disorder of bone and cartilage Lumbar degenerative disc disease Leukopenia, unspecified type SCOTT positive Family history of rheumatoid arthritis Fatigue, unspecified type Fibromyalgia History of fibromyalgia History of osteoporosis Long-term use of high-risk medication Hypothyroidism, unspecified type Abnormal reflexes of lower extremity Expected: 08/07/2022 (Approximate), Expires: 08/08/2023 [facility] Comment on above: Expected: 08/07/2022 (Approximate), Expi res: 08/08/2023 Start: 08-07-2022 End: 08-08-2023 C-reactive protein C REACTIVE PROTEIN Lab Routine Cervicalgia Dorsalgia History of neuropathy DDD (degenerative disc disease), cervical Disorder of bone and cartilage Lumbar degenerative disc disease Leukopenia, unspecified type SCOTT positive Family history of rheumatoid arthritis Fatigue, unspecified type Fibromyalgia History of fibromyalgia History of osteoporosis Long-term use of high-risk medication Hypothyroidism, unspecified type Abnormal reflexes of lower extremity Expected: 08/07/2022 (Approximate), Expires: 08/08/2023 [facility] Comment on above: Expected: 08/07/2022 (Approximate), Expi res: 08/08/2023 Start: 08-07-2022 End: 08-08-2023 C3 COMPLEMENT C3 COMPLEMENT Lab Routine Cervicalgia Dorsalgia History of neuropathy DDD (degenerative disc disease), cervical Disorder of bone and cartilage Lumbar degenerative disc disease Leukopenia, unspecified type SCOTT positive Family history of rheumatoid arthritis Fatigue, unspecified type Fibromyalgia History of fibromyalgia History of osteoporosis Long-term use of high-risk medication Hypothyroidism, unspecified type Abnormal reflexes of lower extremity Expected: 08/07/2022 (Approximate), Expires: 08/08/2023 [facility] Comment on above: Expected: 08/07/2022 (Approximate), Expi res: 08/08/2023 Start: 08-07-2022 End: 08-08-2023 C4 COMPLEMENT C4 COMPLEMENT Lab Routine Cervicalgia Dorsalgia History of neuropathy DDD (degenerative disc disease), cervical Disorder of bone and cartilage Lumbar degenerative disc disease Leukopenia, unspecified type SCOTT positive Family history of rheumatoid arthritis Fatigue, unspecified type Fibromyalgia History of fibromyalgia History of osteoporosis Long-term use of high-risk medication Hypothyroidism, unspecified type Abnormal reflexes of lower extremity Expected: 08/07/2022 (Approximate), Expires: 08/08/2023 [facility] Comment on above: Expected: 08/07/2022 (Approximate), Expi res: 08/08/2023 Start: 08-07-2022 End: 08-08-2023 CK CK Lab Routine Cervicalgia Dorsalgia History of neuropathy DDD (degenerative disc disease), cervical Disorder of bone and cartilage Lumbar degenerative disc disease Leukopenia, unspecified type SCOTT positive Family history of rheumatoid arthritis Fatigue, unspecified type Fibromyalgia History of fibromyalgia History of osteoporosis Long-term use of high-risk medication Hypothyroidism, unspecified type Abnormal reflexes of lower extremity Expected: 08/07/2022 (Approximate), Expires: 08/08/2023 [facility] Comment on above: Expected: 08/07/2022 (Approximate), Expi res: 08/08/2023 Start: 08-07-2022 End: 08-08-2023 Complete blood count with white cell differential, automated CBC, EDIF, PLATELET Lab Routine Cervicalgia Dorsalgia History of neuropathy DDD (degenerative disc disease), cervical Disorder of bone and cartilage Lumbar degenerative disc disease Leukopenia, unspecified type SCOTT positive Family history of rheumatoid arthritis Fatigue, unspecified type Fibromyalgia History of fibromyalgia History of osteoporosis Long-term use of high-risk medication Hypothyroidism, unspecified type Abnormal reflexes of lower extremity Expected: 08/07/2022 (Approximate), Expires: 08/08/2023 [facility] Comment on above: Expected: 08/07/2022 (Approximate), Expi res: 08/08/2023 Start: 08-07-2022 End: 08-08-2023 Comprehensive metabolic 2000 panel - Serum or Plasma COMPREHENSIVE METABOLIC PANEL Lab Routine Cervicalgia Dorsalgia History of neuropathy DDD (degenerative disc disease), cervical Disorder of bone and cartilage Lumbar degenerative disc disease Leukopenia, unspecified type SCOTT positive Family history of rheumatoid arthritis Fatigue, unspecified type Fibromyalgia History of fibromyalgia History of osteoporosis Long-term use of high-risk medication Hypothyroidism, unspecified type Abnormal reflexes of lower extremity Expected: 08/07/2022 (Approximate), Expires: 08/08/2023 [facility] Comment on above: Expected: 08/07/2022 (Approximate), Expi res: 08/08/2023 Start: 08-07-2022 End: 08-08-2023 Cyanocobalamin vitamin b-12 VITAMIN B12 Lab Routine Cervicalgia Dorsalgia History of neuropathy DDD (degenerative disc disease), cervical Disorder of bone and cartilage Lumbar degenerative disc disease Leukopenia, unspecified type SCOTT positive Family history of rheumatoid arthritis Fatigue, unspecified type Fibromyalgia History of fibromyalgia History of osteoporosis Long-term use of high-risk medication Hypothyroidism, unspecified type Abnormal reflexes of lower extremity Expected: 08/07/2022 (Approximate), Expires: 08/08/2023 [facility] Comment on above: Expected: 08/07/2022 (Approximate), Expi res: 08/08/2023 Start: 08-07-2022 End: 08-08-2023 CYCLIC CITRULLINATE PEPTIDE AB CYCLIC CITRULLINATE PEPTIDE AB Lab Routine Cervicalgia Dorsalgia History of neuropathy DDD (degenerative disc disease), cervical Disorder of bone and cartilage Lumbar degenerative disc disease Leukopenia, unspecified type SCOTT positive Family history of rheumatoid arthritis Fatigue, unspecified type Fibromyalgia History of fibromyalgia History of osteoporosis Long-term use of high-risk medication Hypothyroidism, unspecified type Abnormal reflexes of lower extremity Expected: 08/07/2022 (Approximate), Expires: 08/08/2023 [facility] Comment on above: Expected: 08/07/2022 (Approximate), Expi res: 08/08/2023 Start: 08-07-2022 End: 08-08-2023 HLA-B27 HLA-B27 Lab Routine Cervicalgia Dorsalgia History of neuropathy DDD (degenerative disc disease), cervical Disorder of bone and cartilage Lumbar degenerative disc disease Leukopenia, unspecified type SCOTT positive Family history of rheumatoid arthritis Fatigue, unspecified type Fibromyalgia History of fibromyalgia History of osteoporosis Long-term use of high-risk medication Hypothyroidism, unspecified type Abnormal reflexes of lower extremity Ankylosing spondylitis, unspecified site of spine Expected: 08/07/2022 (Approximate), Expires: 08/08/2023 [facility] Comment on above: Expected: 08/07/2022 (Approximate), Expi res: 08/08/2023 Start: 08-07-2022 End: 08-08-2023 MARIE AND PE, SERUM MARIE AND PE, SERUM Lab Routine Cervicalgia Dorsalgia History of neuropathy DDD (degenerative disc disease), cervical Disorder of bone and cartilage Lumbar degenerative disc disease Leukopenia, unspecified type SCOTT positive Family history of rheumatoid arthritis Fatigue, unspecified type Fibromyalgia History of fibromyalgia History of osteoporosis Long-term use of high-risk medication Hypothyroidism, unspecified type Abnormal reflexes of lower extremity Expected: 08/07/2022 (Approximate), Expires: 08/08/2023 [facility] Comment on above: Expected: 08/07/2022 (Approximate), Expi res: 08/08/2023 Start: 08-07-2022 End: 08-08-2023 LYME DISEASE SEROLOGY WITH REFLEX LYME DISEASE SEROLOGY WITH REFLEX Lab Routine Cervicalgia Dorsalgia History of neuropathy DDD (degenerative disc disease), cervical Disorder of bone and cartilage Lumbar degenerative disc disease Leukopenia, unspecified type SCOTT positive Family history of rheumatoid arthritis Fatigue, unspecified type Fibromyalgia History of fibromyalgia History of osteoporosis Long-term use of high-risk medication Hypothyroidism, unspecified type Abnormal reflexes of lower extremity Expected: 08/07/2022 (Approximate), Expires: 08/08/2023 [facility] Comment on above: Expected: 08/07/2022 (Approximate), Expi res: 08/08/2023 Start: 08-07-2022 End: 08-08-2023 Magnesium [Mass/volume] in Serum or Plasma MAGNESIUM Lab Routine Cervicalgia Dorsalgia History of neuropathy DDD (degenerative disc disease), cervical Disorder of bone and cartilage Lumbar degenerative disc disease Leukopenia, unspecified type SCOTT positive Family history of rheumatoid arthritis Fatigue, unspecified type Fibromyalgia History of fibromyalgia History of osteoporosis Long-term use of high-risk medication Hypothyroidism, unspecified type Abnormal reflexes of lower extremity Expected: 08/07/2022 (Approximate), Expires: 08/08/2023 [facility] Comment on above: Expected: 08/07/2022 (Approximate), Expi res: 08/08/2023 Start: 08-07-2022 End: 08-08-2023 RED CELL FOLATE RED CELL FOLATE Blood Bank Routine Cervicalgia Dorsalgia History of neuropathy DDD (degenerative disc disease), cervical Disorder of bone and cartilage Lumbar degenerative disc disease Leukopenia, unspecified type SCOTT positive Family history of rheumatoid arthritis Fatigue, unspecified type Fibromyalgia History of fibromyalgia History of osteoporosis Long-term use of high-risk medication Hypothyroidism, unspecified type Abnormal reflexes of lower extremity Expected: 08/07/2022 (Approximate), Expires: 08/08/2023 [facility] Comment on above: Expected: 08/07/2022 (Approximate), Expi res: 08/08/2023 Start: 08-07-2022 End: 08-08-2023 SEDIMENTATION RATE, AUTOMATED SEDIMENTATION RATE, AUTOMATED Lab Routine Cervicalgia Dorsalgia History of neuropathy DDD (degenerative disc disease), cervical Disorder of bone and cartilage Lumbar degenerative disc disease Leukopenia, unspecified type SCOTT positive Family history of rheumatoid arthritis Fatigue, unspecified type Fibromyalgia History of fibromyalgia History of osteoporosis Long-term use of high-risk medication Hypothyroidism, unspecified type Abnormal reflexes of lower extremity Expected: 08/07/2022 (Approximate), Expires: 08/08/2023 [facility] Comment on above: Expected: 08/07/2022 (Approximate), Expi res: 08/08/2023 Start: 08-07-2022 End: 08-08-2023 T-TRANSGLUTAMINASE IGA AB T-TRANSGLUTAMINASE IGA AB Lab Routine Cervicalgia Dorsalgia History of neuropathy DDD (degenerative disc disease), cervical Disorder of bone and cartilage Lumbar degenerative disc disease Leukopenia, unspecified type SCOTT positive Family history of rheumatoid arthritis Fatigue, unspecified type Fibromyalgia History of fibromyalgia History of osteoporosis Long-term use of high-risk medication Hypothyroidism, unspecified type Abnormal reflexes of lower extremity Expected: 08/07/2022 (Approximate), Expires: 08/08/2023 [facility] Comment on above: Expected: 08/07/2022 (Approximate), Expi res: 08/08/2023 Start: 08-07-2022 End: 08-08-2023 Thyrotropin [Units/volume] in Serum or Plasma TSH Lab Routine Cervicalgia Dorsalgia History of neuropathy DDD (degenerative disc disease), cervical Disorder of bone and cartilage Lumbar degenerative disc disease Leukopenia, unspecified type SCOTT positive Family history of rheumatoid arthritis Fatigue, unspecified type Fibromyalgia History of fibromyalgia History of osteoporosis Long-term use of high-risk medication Hypothyroidism, unspecified type Abnormal reflexes of lower extremity Expected: 08/07/2022 (Approximate), Expires: 08/08/2023 [facility] Comment on above: Expected: 08/07/2022 (Approximate), Expi res: 08/08/2023 Start: 08-07-2022 End: 08-08-2023 Urate [Mass/volume] in Serum or Plasma URIC ACID Lab Routine Cervicalgia Dorsalgia History of neuropathy DDD (degenerative disc disease), cervical Disorder of bone and cartilage Lumbar degenerative disc disease Leukopenia, unspecified type SCOTT positive Family history of rheumatoid arthritis Fatigue, unspecified type Fibromyalgia History of fibromyalgia History of osteoporosis Long-term use of high-risk medication Hypothyroidism, unspecified type Abnormal reflexes of lower extremity Expected: 08/07/2022 (Approximate), Expires: 08/08/2023 [facility] Comment on above: Expected: 08/07/2022 (Approximate), Expi res: 08/08/2023 Start: 08-07-2022 End: 08-08-2023 Urinalysis dipstick W Reflex Microscopic panel - Urine URINE MICROSCOPIC Fluids Routine Cervicalgia Dorsalgia History of neuropathy DDD (degenerative disc disease), cervical Disorder of bone and cartilage Lumbar degenerative disc disease Leukopenia, unspecified type SCOTT positive Family history of rheumatoid arthritis Fatigue, unspecified type Fibromyalgia History of fibromyalgia History of osteoporosis Long-term use of high-risk medication Hypothyroidism, unspecified type Abnormal reflexes of lower extremity Expected: 08/07/2022 (Approximate), Expires: 08/08/2023 [facility] Comment on above: Expected: 08/07/2022 (Approximate), Expi res: 08/08/2023 Start: 08-07-2022 End: 08-08-2023 Urinalysis, reagent strip without microscopy URINALYSIS, MACRO Fluids Routine Cervicalgia Dorsalgia History of neuropathy DDD (degenerative disc disease), cervical Disorder of bone and cartilage Lumbar degenerative disc disease Leukopenia, unspecified type SCOTT positive Family history of rheumatoid arthritis Fatigue, unspecified type Fibromyalgia History of fibromyalgia History of osteoporosis Long-term use of high-risk medication Hypothyroidism, unspecified type Abnormal reflexes of lower extremity Expected: 08/07/2022 (Approximate), Expires: 08/08/2023 [facility] Comment on above: Expected: 08/07/2022 (Approximate), Expi res: 08/08/2023 Start: 08-07-2022 End: 08-08-2023 VITAMIN B1 VITAMIN B1 Lab Routine Cervicalgia Dorsalgia History of neuropathy DDD (degenerative disc disease), cervical Disorder of bone and cartilage Lumbar degenerative disc disease Leukopenia, unspecified type SCOTT positive Family history of rheumatoid arthritis Fatigue, unspecified type Fibromyalgia History of fibromyalgia History of osteoporosis Long-term use of high-risk medication Hypothyroidism, unspecified type Abnormal reflexes of lower extremity Expected: 08/07/2022 (Approximate), Expires: 08/08/2023 [facility] Comment on above: Expected: 08/07/2022 (Approximate), Expi res: 08/08/2023 Start: 08-07-2022 End: 08-08-2023 VITAMIN B6 VITAMIN B6 Lab Routine Cervicalgia Dorsalgia History of neuropathy DDD (degenerative disc disease), cervical Disorder of bone and cartilage Lumbar degenerative disc disease Leukopenia, unspecified type SCOTT positive Family history of rheumatoid arthritis Fatigue, unspecified type Fibromyalgia History of fibromyalgia History of osteoporosis Long-term use of high-risk medication Hypothyroidism, unspecified type Abnormal reflexes of lower extremity Expected: 08/07/2022 (Approximate), Expires: 08/08/2023 [facility] Comment on above: Expected: 08/07/2022 (Approximate), Expi res: 08/08/2023 Start: 08-07-2022 End: 08-08-2023 VITAMIN D (25-HYDROXY,TOTAL) VITAMIN D (25-HYDROXY,TOTAL) Lab Routine Cervicalgia Dorsalgia History of neuropathy DDD (degenerative disc disease), cervical Disorder of bone and cartilage Lumbar degenerative disc disease Leukopenia, unspecified type SCOTT positive Family history of rheumatoid arthritis Fatigue, unspecified type Fibromyalgia History of fibromyalgia History of osteoporosis Long-term use of high-risk medication Hypothyroidism, unspecified type Abnormal reflexes of lower extremity Expected: 08/07/2022 (Approximate), Expires: 08/08/2023 [facility] Comment on above: Expected: 08/07/2022 (Approximate), Expi res: 08/08/2023 Start: 08-07-2022 End: 08-08-2023 VITAMIN D, (1,25 DIHYDROXY) VITAMIN D, (1,25 DIHYDROXY) Lab Routine Cervicalgia Dorsalgia History of neuropathy DDD (degenerative disc disease), cervical Disorder of bone and cartilage Lumbar degenerative disc disease Leukopenia, unspecified type SCOTT positive Family history of rheumatoid arthritis Fatigue, unspecified type Fibromyalgia History of fibromyalgia History of osteoporosis Long-term use of high-risk medication Hypothyroidism, unspecified type Abnormal reflexes of lower extremity Expected: 08/07/2022 (Approximate), Expires: 08/08/2023 [facility] Comment on above: Expected: 08/07/2022 (Approximate), Expi res: 08/08/2023 Start: 08-07-2022 End: 08-08-2023 XR Chest PA and Lateral XR CHEST PA AND LATERAL Imaging Routine Cervicalgia Dorsalgia History of neuropathy DDD (degenerative disc disease), cervical Disorder of bone and cartilage Lumbar degenerative disc disease Leukopenia, unspecified type SCOTT positive Family history of rheumatoid arthritis Fatigue, unspecified type Fibromyalgia History of fibromyalgia History of osteoporosis Long-term use of high-risk medication Hypothyroidism, unspecified type Abnormal reflexes of lower extremity Expected: 08/07/2022, Expires: 08/08/2023 [facility] Comment on above: Expected: 08/07/2022, Expires: Start: 08-07-2022 End: 08-08-2023 XR Thoracic spine 2 Views XR SPINE THORACIC 2 VIEWS Imaging Routine Cervicalgia Dorsalgia History of neuropathy DDD (degenerative disc disease), cervical Disorder of bone and cartilage Lumbar degenerative disc disease Leukopenia, unspecified type SCOTT positive Family history of rheumatoid arthritis Fatigue, unspecified type Fibromyalgia History of fibromyalgia History of osteoporosis Long-term use of high-risk medication Hypothyroidism, unspecified type Abnormal reflexes of lower extremity Expected: 08/07/2022, Expires: 08/08/2023 [facility] Comment on above: Expected: 08/07/2022, Expires: 4 Start: 01-22-2022 Urine microalbumin profile DTAP,TDAP,TD (2 - Td or Tdap) [facility] Start: 02-17-2021 ADVANCE DIRECTIVE DISCUSSION ADVANCE DIRECTIVE DISCUSSION [facility] Start: 02-17-2021 DEPRESSION ASSESSMENT DEPRESSION ASSESSMENT [facility] Start: 08-25-2019 Mammography MAMMOGRAM [facility] Start: 08-25-2019 Screening for malignant neoplasm of breast Mammogram Screening [facility] Start: 05-24-2019 Shingrix Vaccine (3 of 3) Shingrix Vaccine (3 of 3) [facility] Start: 05-24-2019 Zoster vaccine hzv live for subcutaneous use ZOSTER (SHINGLES) VACCINE (3 of 3) [facility] Start: 09-08-2017 End: 09-08-2017 Appointment Appointment [employer] Phone: Start: 09-03-2017 Screening for malignant neoplasm of colon COLORECTAL CANCER SCREENING DISCUSSION [facility] Start: 02-15-2017 DIABETES SCREEN DIABETES SCREEN [facility] Start: 02-15-2017 Diabetes Screening Diabetes Screening [facility] Start: 09-09-2016 End: 09-09-2016 Appointment Appointment [employer] Phone: Start: 09-09-2016 End: 09-09-2016 Follow Up Appt 1 year Follow Up Appt 1 year [employer] Work Phone: Start: 09-09-2016 End: 09-09-2016 PFM PFMD [employer] Work Phone: Start: 10-19-2015 Lipid panel Lipid Screening [facility] Start: 10-19-2015 LIPID SCREEN LIPID SCREEN [facility] Start: 09-11-2015 End: 08-27-2016 Follow Up Appt 1 year Follow Up Appt 1 year [employer] Work Phone: Start: 09-11-2015 End: 08-27-2016 PFM [employer] Work Phone: Start: 12-30-2014 Pneumococcal vaccination PNEUMOCOCCAL VACCINE SERIES (2 - PCV) [facility] Start: 2014 PNEUMOCOCCAL: 65+ (1 - PCV) PNEUMOCOCCAL: 65+ (1 - PCV) [facility] Start: 08-24-2014 End: 09-11-2015 Follow Up Appt 1 year Follow Up Appt 1 year [employer] Work Phone: Start: 08-24-2014 End: 09-11-2015 PFM [facility] [employer] Work Phone: Start: 08-18-2013 End: 08-18-2013 Follow Up Appt 1 year Follow Up Appt 1 year [facility] Work Phone: Start: 08-18-2013 End: 08-27-2016 Follow Up Appt Other Follow Up Appt Other [facility] Work Phone: Start: 08-18-2013 End: 08-18-2013 PFM P[facility] Work Phone: Start: 08-12-2012 End: 08-12-2012 Electrocardiogram, complete EKG (In office) [facility] Work Phone: Start: 08-12-2012 End: 08-12-2012 Follow Up Appt 1 year Follow Up Appt 1 year [facility] Work Phone: Start: 08-12-2012 End: 08-12-2012 PFM PFM [facility] Work Phone: Start: 08-02-2011 End: 08-27-2016 Follow Up Appt 1 year Follow Up Appt 1 year [facility] Work Phone: Start: 08-02-2011 End: 08-27-2016 Follow Up Appt Other Follow Up Appt Other [facility] Work Phone: Start: 2009 RSV VACCINE (1 - 1-dose 60+ series) RSV VACCINE (1 - 1-dose 60+ series) [facility] Start: 09-29-1999 SHINGRIX VACCINE (1 of 2) SHINGRIX VACCINE (1 of 2) [facility] Start: 1994 COLOGUARD (FIT-DNA) COLOGUARD (FIT-DNA) [facility] Start: [address] COLONOGRAPHY [facility] Start: 1994 FECAL OCCULT BLOOD FECAL OCCULT BLOOD [facility] Start: 1994 Screening for malignant neoplasm of colon [facility] Start: 1994 SIGMOIDOSCOPY SIGMOIDOSCOPY [facility] Start: 1989 Lipid panel LIPID SCREENING [facility] Start: 1989 Screening for malignant neoplasm of breast MAMMOGRAM SCREENING DISCUSSION [facility] Start: 1970 Screening for malignant neoplasm of cervix CERVICAL CANCER SCREENING DISCUSSION [facility] Start: 09-29-1967 Anxiety Screening Anxiety Screening [facility] Start: 09-29-1967 Depression Screening Depression Screening [facility] Start: 09-29-1967 HEPATITIS C SCREENING HEPATITIS C SCREENING [facility] Start: 09-29-1967 Hepatitis C screening Hepatitis C Screening [facility] Start: 1949 Hepatitis C screening HEPATITIS C VIRUS SCREENING [facility] Start: 1949 Screening for osteoporosis DEXA SCAN DISCUSSION [facility] Start: 1949 Thyroid stimulating hormone measurement TSH [facility] End: 11-12-2024 Screening colonoscopy COLONOSCOPY SCREENING Endoscopy Routine Screen for colon cancer Adenomatous polyp of colon, unspecified part of colon 1 Occurrences starting 11/13/2023 until 11/12/2024 [facility] Work Phone: Comment on above: 1 Occurrences starting 11/13/2023 until 11/12/2024 SURGICAL PATHOLOGY [facility] Work Phone: Comment on above: Release Upon Ordering for 1 Occurrences starting 12/04/2021, 1 completed [facility] Immunizations Immunization Date Immunization Notes Care Provider [facility] 11-06-2022 influenza virus vaccine, unspecified formulation Srini Daley MD Work Phone: [facility] 11-15-2021 influenza virus vaccine, unspecified formulation Caryn Swain Jr., DO Work Phone: [facility] 03-29-2019 zoster vaccine, unspecified formulation Caryn Swain Jr., DO Work Phone: [facility] 01-23-2012 tetanus toxoid, reduced diphtheria toxoid, and acellular pertussis vaccine, adsorbed Robyn Morales MD Work Phone: [facility] Work Phone: Payers Date Payer Category Payer Medicare [id number] 2018 Unknown [id number] 2014 Medicare [id number] 2014 Medicare [id number] 1950 Unknown [id number] 1950 Unknown [id number] 1950 Unknown [id number] 1950 Unknown [id number] Medicare [id number] Social History Date Type Detail Facility Start: 12-04-2021 End: 10-13-2023 Tobacco smoking status VTIS Ex-smoker [facility] Start: 11-06-1967 End: 12-12-1975 History of tobacco use Current smoker [facility] Start: 12-04-2021 End: 10-13-2023 Tobacco use and exposure Smokeless tobacco non-user [facility] Start: 12-04-2021 End: 10-13-2023 Alcohol intake Current drinker of alcohol (finding) [facility] Start: 12-04-2021 Tobacco Comment 1975 [facility] Start: 07-01-2016 Alcohol Comment very rare [facility] Start: 1950 Sex Assigned At Not on file [facility] Start: 11-24-2021 End: 12-13-2021 Exposure to SARS-CoV-2 (event) Not sure [facility] Start: 11-06-1967 End: 12-12-1975 History of tobacco use Cigarette Smoker [facility] Start: 03-15-2022 End: 08-07-2022 History of Social function [facility] Start: 03-15-2022 End: 08-07-2022 Tobacco use panel [facility] Start: 09-18-2023 Tobacco Comment Smoked for joi ght control, but found Luis Angel so didn t need it. Quit cold [place]. Praise the Lord!!! [facility] Start: 09-18-2023 Alcohol Comment Only on occass ion. Hot humid day!!! 1 ice cold beer, Social [facility] Start: 10-13-2023 Tobacco Comment Smoked for joi ght control, but found Luis Angel so didn't need it. Quit cold [place]. Praise the Lord!!! [facility] Start: 11-13-2023 Alcoholic beverage intake Ex-drinker (finding) [facility] National Score (1-10 0), lower number is lower risk 52 [facility] Start: 1950 Sex assigned at Female [facility] Start: 04-14-2022 Gender identity Identifies as female gender (finding) [facility] Start: 04-14-2022 Sexual orientation Heterosexual (fin ding) [facility] Clinical Notes 09-20-2021 to 11-13-2023 Jeanne Pugh LPN - 11/13/2023 11:48 AM Jeanne Olivas LPN - 11/13/2023 11:48 AM Jeanne Olivas LPN - 11/13/2023 11:15 AM EDJeanne Olivia LPN - 11/13/2023 11:15 AM EDT Note Date & Type Note Facility 11-13-2023 Nurse Note This Nurse reviewed and provided patient with copy of written instructions. The patient verbalized understanding and was given a number for questions. Jeanne Pugh LPN [facility] 11-13-2023 Nurse Note This Nurse reviewed and provided patient with copy of written instructions. The patient verbalized understanding and was given a number for questions. Jeanne Pugh LPN REVIEW OF SYSTEMS: General: The patient notes fatigue, denies weight loss, denies weight gain, denies feeling hot, and denies feelings of cold. Eyes: The patient denies glaucoma, denies eye injury/surgery, wears glasses. Ear/Nose/Throat: The patient notes allergies, denies hayfever, denies ear infections, and denies bloody noses. Cardiovascular: The patient denies chest pain, denies heart disease, denies high blood pressure,denies cardiac stent, denies prior heart attack, denies irregular heart beat, denies high cholesterol, denies poor circulation, denies heart failure, other cardiac issues, denies claudication, denies cold feet, denies peripheral arterial stent. Respiratory: The patient denies tuberculosis, denies pneumonia, denies frequent cough, denies pulmonary embolism, denies shortness of breath, and denies coughing up blood. Gastrointestinal: The patient denies difficulty swallowing, notes acid reflux, denies ulcers, denies vomiting, denies jaundice/hepatitis, notes gallbladder problems (removed), denies black or tarry stools, denies hemorrhoids, denies bleeding from rectum, denies diverticulitis, notes constipation, notes diarrhea, denies loss of stool control, and denies hernias. Kidney/Bladder: The patient denies kidney stones, denies urine infections, and denies bloody urine. Skin: The patient notes a history of skin cancer, denies bleeding/changing moles, and denies a history of skin rash. Neurologic: The patient denies a history of epilepsy/convulsions, denies headaches, denies head/spinal injuries, and notes stroke/TIA (acoustic neuoma tumor).. Psychiatric: The patient denies psychiatric medications, denies depression, and denies voices, denies substance abuse. Endocrine: The patient notes thyroid disorders, denies diabetes, and denies hormonal problems. Hematologic: The patient denies a history of bruising, denies bleeding, and denies anemia, denies blood clots. Infections: The patient denies a history of measles and NOTES mumps , denies rheumatic fever, and denies sexually transmitted diseases. Musculoskeletal: The patient denies back pain/injury, notes back problems, notes sciatica, denies knee/foot trouble, notes arthritis, or denies gout. When was patient's last Mammogram screening? 2022 per patient Last Colonoscopy: 12/04/2021 Jeanne Pugh LPN documented in this encounter [facility] 11-13-2023 Nurse Note REVIEW OF SYSTEMS: General: The patient notes fatigue, denies weight loss, denies weight gain, denies feeling hot, and denies feelings of cold. Eyes: The patient denies glaucoma, denies eye injury/surgery, wears glasses. Ear/Nose/Throat: The patient notes allergies, denies hayfever, denies ear infections, and denies bloody noses. Cardiovascular: The patient denies chest pain, denies heart disease, denies high blood pressure,denies cardiac stent, denies prior heart attack, denies irregular heart beat, denies high cholesterol, denies poor circulation, denies heart failure, other cardiac issues, denies claudication, denies cold feet, denies peripheral arterial stent. Respiratory: The patient denies tuberculosis, denies pneumonia, denies frequent cough, denies pulmonary embolism, denies shortness of breath, and denies coughing up blood. Gastrointestinal: The patient denies difficulty swallowing, notes acid reflux, denies ulcers, denies vomiting, denies jaundice/hepatitis, notes gallbladder problems (removed), denies black or tarry stools, denies hemorrhoids, denies bleeding from rectum, denies diverticulitis, notes constipation, notes diarrhea, denies loss of stool control, and denies hernias. Kidney/Bladder: The patient denies kidney stones, denies urine infections, and denies bloody urine. Skin: The patient notes a history of skin cancer, denies bleeding/changing moles, and denies a history of skin rash. Neurologic: The patient denies a history of epilepsy/convulsions, denies headaches, denies head/spinal injuries, and notes stroke/TIA (acoustic neuoma tumor).. Psychiatric: The patient denies psychiatric medications, denies depression, and denies voices, denies substance abuse. Endocrine: The patient notes thyroid disorders, denies diabetes, and denies hormonal problems. Hematologic: The patient denies a history of bruising, denies bleeding, and denies anemia, denies blood clots. Infections: The patient denies a history of measles and NOTES mumps , denies rheumatic fever, and denies sexually transmitted diseases. Musculoskeletal: The patient denies back pain/injury, notes back problems, notes sciatica, denies knee/foot trouble, notes arthritis, or denies gout. When was patient's last Mammogram screening? 2022 per patient Last Colonoscopy: 12/04/2021 Jeanne Pugh LPN [facility] 11-13-2023 History of Present illness Narrative HISTORY AND PHYSICAL Ayesha Castrejon : 1950 REFERRING PHYSICIAN: Robyn Morales [address] [facility] [id number] CHIEF COMPLAINT: Patient presents with: Consult HPI: Ayesha is a 73 year old female referred for endoscopy. Ayesha notes history of colonic polyps. Ayesha denies abdominal pain.. Ayesha notes a distant history of diarrhea. Ayesha notes a distant history of constipation. + Ayesha refers a history of IBS, she has all a holistic provider who prescribed her digestive enzymes and when she was taking those her fluctuation between constipation and diarrhea completely resolved. She refers the enzymes are expensive and has since stopped taking them, notes changes between diarrhea and constipation however not as severe as prior to enzymes. Ayesha denies a change in bowel habits. Ayesha denies melena. Ayesha denies bright red blood per rectum. Ayesha denies hemorrhoids. Ayesha notes a distant history of heartburn. Controlled with omeprazole 40 mg daily Ayesha denies dysphagia. Ayesha denies a history of ulcers/ peptic ulcer disease. Notes family history of colon issues.-Father with colon cancer Ayesha has undergone prior endoscopy. Last colonoscopy 11/[address] Morales at [facility]. Sedation received: Midazolam 5 mg IV, Fentanyl 100 micrograms IV Impression: - One small polyp in the proximal descending colon, removed with a cold biopsy forceps. Resected and retrieved. - One 7 mm polyp in the proximal rectum, removed piecemeal using a cold snare. Resected and retrieved. Clips (MR conditional) were placed. 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 - The examination was otherwise normal on direct and retroflexion views. - Diverticulosis in the sigmoid colon. PATHOLOGY FINAL DIAGNOSIS A. Descending colon polyp, biopsy: - Tubular adenoma. B. Rectal polyp, biopsy: - Tubular adenoma. JEL 12/05/2021 Current Outpatient Medications Medication Sig celecoxib (CELEBREX) 200 mg capsule Take 200 mg by mouth once daily. gabapentin (NEURONTIN) 100 mg capsule Take 1 capsule by mouth two times a day as needed. omeprazole (PRILOSEC) 40 mg capsule Take 1 capsule by mouth once daily. terbinafine HCl (LAMISIL) 250 mg tablet Take 1 tablet by mouth once daily. gabapentin (NEURONTIN ORAL) Take 200 mg by mouth daily at bedtime. enzymes,digestive (DIGESTIVE ENZYMES ORAL) Take 1 capsule by mouth once daily as needed. May take two capsules mqbqizqbsc-fyzjttq-bxhkxorxwuf (FOLINIC-PLUS) 4-50-2 mg tab Take 1 tablet by mouth once daily. calcium carbonate (OYSTER SHELL CALCIUM ORAL) Take 1,250 mg by mouth once daily. rOPINIRole (REQUIP) 0.5 mg tablet Take 0.5 mg by mouth daily at bedtime. Takes 1 MG by mouth daily denosumab (PROLIA SUBCUTANEOUS) Inject 60 mg/mL subcutaneously once every 6 months. cetirizine HCl (ZYRTEC ORAL) Take by mouth once daily as needed. fluticasone (FLONASE) 50 mcg/actuation nasal spray Use 1 [place] in each nostril as needed. TURMERIC ORAL Take by mouth once daily. levothyroxine 50 mcg tablet Take 1 tablet by mouth once daily. CHOLECALCIFEROL, VITAMIN D3, (VITAMIN D-3 ORAL) Take 2,000 Units by mouth once daily. peg 3350-Electrolytes (GOLYTELY) 236-22.74-6.74 -5.86 gram suspension Take 4,000 mL by mouth one time only for 1 dose. Refer to printed prep instructions from your provider. No current facility-administered medications for this visit. ALLERGIES: Flexeril [Cyclobenzaprine Hcl], Fosamax [Alendronate Sodium], and Zantac [Ranitidine Hcl] PAST MEDICAL HISTORY Diagnosis Date Arrhythmia Arthritis DDD (degenerative disc disease) Hypercholesterolemia Hypothyroid Impaired hearing 08/25/2009 right ear-accoustic neuroma Intramural leiomyoma of uterus 1985 Neuroma 08/2009 Right acoustic neuroma Neuropathy Osteopenia Osteoporosis Other forms of migraine Skin cancer of face 09/2023 [facility] PAST SURGICAL HISTORY Procedure Laterality Date ABDOMINAL SURGERY HX APPENDECTOMY APPENDECTOMY HX BRAIN SURGERY HX COCHLEAR IMPLANT HX Right 02/16/2016 BAHA COLONOSCOPY 08/2000 COLONOSCOPY 12/04/2021 repeat in 2 years COLONOSCOPY FLX DX W/COLLJ SPEC WHEN [...] SURGICAL HISTORY OF Right 2021 eye lid PAST SURGICAL HISTORY OF Right Eyelid surgery SHX COSMETIC SURGERY SKIN BIOPSY HX TONSILLECTOMY HX TONSILLECTOMY PRIMARY/SECONDARY <AGE 12 Tonsillectomy TOTAL ABDOMINAL HYSTERECT W/WO RMVL TUBE OVARY Hysterectomy, YELENA VAGINAL HYSTERECTOMY VASCULAR SURGERY PROCEDURE FAMILY HISTORY Problem Relation Age of Onset Cancer Mother thyroid, renal cell cancer, brain cancer Cancer Father colon COPD Sister other (Rheumatoid arthtrisits) Sister Blood Clots Sister other (polyps) Brother colon polyps No Known Problems Maternal Grandmother No Known Problems Maternal Grandfather No Known Problems Paternal Grandmother Tuberculosis Paternal Grandfather Social History Tobacco Use Smoking status: Former Smokeless tobacco: Never Tobacco comments: 1975 Vaping Use Vaping status: Never Used Substance Use Topics Alcohol use: Not Currently Comment: very rare Drug use: No REVIEW OF SYMPTOMS: The review of systems data was entered by the nurse and reviewed by de Nursing Notes: Jeanne Pugh LPN 11/13/2023 11:19 AM Signed REVIEW OF SYSTEMS: General: The patient notes fatigue, denies weight loss, denies weight gain, denies feeling hot, and denies feelings of cold. Eyes: The patient denies glaucoma, denies eye injury/surgery, wears glasses. Ear/Nose/Throat: The patient notes allergies, denies hayfever, denies ear infections, and denies bloody noses. Cardiovascular: The patient denies chest pain, denies heart disease, denies high blood pressure,denies cardiac stent, denies prior heart attack, denies irregular heart beat, denies high cholesterol, denies poor circulation, denies heart failure, other cardiac issues, denies claudication, denies cold feet, denies peripheral arterial stent. Respiratory: The patient denies tuberculosis, denies pneumonia, denies frequent cough, denies pulmonary embolism, denies shortness of breath, and denies coughing up blood. Gastrointestinal: The patient denies difficulty swallowing, notes acid reflux, denies ulcers, denies vomiting, denies jaundice/hepatitis, notes gallbladder problems (removed), denies black or tarry stools, denies hemorrhoids, denies bleeding from rectum, denies diverticulitis, notes constipation, notes diarrhea, denies loss of stool control, and denies hernias. Kidney/Bladder: The patient denies kidney stones, denies urine infections, and denies bloody urine. Skin: The patient notes a history of skin cancer, denies bleeding/changing moles, and denies a history of skin rash. Neurologic: The patient denies a history of epilepsy/convulsions, denies headaches, denies head/spinal injuries, and notes stroke/TIA (acoustic neuoma tumor).. Psychiatric: The patient denies psychiatric medications, denies depression, and denies voices, denies substance abuse. Endocrine: The patient notes thyroid disorders, denies diabetes, and denies hormonal problems. Hematologic: The patient denies a history of bruising, denies bleeding, and denies anemia, denies blood clots. Infections: The patient denies a history of measles and NOTES mumps , denies rheumatic fever, and denies sexually transmitted diseases. Musculoskeletal: The patient denies back pain/injury, notes back problems, notes sciatica, denies knee/foot trouble, notes arthritis, or denies gout. When was patient's last Mammogram screening? 2022 per patient Last Colonoscopy: 12/04/2021 Jeanne Pugh LPN PHYSICAL EXAMINATION: General: The patient is 73 year old, female well nourished, well hydrated in no acute distress. The patient is oriented to time, place, and person. VITALS: Blood pressure 120/76, pulse 64, temperature 36.7 C (98 F), temperature source Temporal, resp. rate 14, weight 52.2 kg (115 lb), SpO2 99%. Body mass index is 22.09 kg/m . HEENT: Normal cephalic, ataumatic, pupils are equally round, sclera are anicteric, mucous membranes are moist, oropharynx is clear. Neck has no masses, asymmetry or lymphadenopathy. Respiratory: Clear to auscultation and percussion. Normal respiratory excursion and pattern. Cardiac: Examination is regular rate and rhythm. Normal S1/S2 Abdominal exam: Soft, nontender, with no palpable masses. No hepatosplenomegaly. No palpable hernias. Extremities: no clubbing, cyanosis or edema. No adenopathy. LABORATORY VALUES: As Noted RADIOLOGIC STUDIES: As Noted Assessment IMPRESSION: Screening for colon cancer, history of adenomatous polyps, family history of colon cancer in father PLAN: I have reviewed my findings with the surgeon. Will plan for lower endoscopy. We discussed the risks and benefits of the planned endoscopy. I have informed the patient that complications can occur including failure to complete the endoscopy and perforation. Ayesha had the opportunity to ask questions concerning the planned endoscopy. My staff has also explained the procedure to the patient in understandable terms and has given the patient printed material concerning the procedure. Ayesha freely consents to surgery. I plan to use Go[employer] bowel preparation I have explained to the patient the difference between IV conscious sedation and MAC anesthesia - and I have offered either, according to the patient's wishes. I have explained that with IV conscious sedation there is no anesthesia provider available and therefore there is a limitation of the amount of IV medications that can be given and that the patient may wake up in the middle of the procedure and/or experience pain/discomfort during the procedure. Further discussion was done and the patient was given the opportunity to ask questions and all questions were answered. Ayesha chooses IV conscious sedation Ayesha was counseled that if there are changes in his/her medical condition, to let the office know if surgery should proceed. If there are changes in patient's medical condition from time of this encounter to the day of the procedure that preclude anesthesia, patient may have procedure cancelled for patient's safety. Diagnoses: (Z12.11) Screen for colon cancer (primary encounter diagnosis) (D12.6) Adenomatous polyp of colon, unspecified part of colon (Z80.0) Family history of colon cancer in father Portions of this documentation were copied and pasted from previous office visit notes in order to provide a cohesive continuity of the history. The note has been reviewed and edited and updated as necessary. Maren De León APRN.MACHINE RUG CLEANER documented in this encounter [facility] 10-13-2023 History of Present illness Narrative Subjective History of Present Illness Prolia 2 started 2020. Prolia is every April and October. Presence of Pain: reports pain/discomfort Pain Location: (Everywhere) Select Pain Scale: DVPRS (Defense and Veterans Pain Rating Scale) (Adult-Cognitively Intact) DVPRS: Rest: 7- severe pain DVPRS: Activity: 7- severe pain Select Pain Scale: DVPRS (Defense and Veterans Pain Rating Scale) (Adult-Cognitively Intact) Pain Frequency: constant Pain Quality: aching. Total time spent in this encounter was 47 minutes. Patient is being evaluated for an unstable chronic illness that increase morbidity and mortality. Dry eyes are worse. OD. Got some new drops that are helping. Dry mouth is dependant on sciatica in her leg and her shoulder injury she has to sleep on her back and gets dry mouth. Poor balance is the same. IBS is cured. Patient is here today for her 6 Month Follow-up. Patient states she is doing pretty good since her last appointment. Patient states she is having right shoulder pain, she is going to see Dr. Sonido Upton. RLS is the same and controlled with medication. Joint pain is usually not just R shoulder that was injured at the Gym with decreased ROM and is going to see ortho Friday. Back pain is not too much. Lower back every now and then with activity and sciatica at night. Objective Review of Systems Constitutional: Negative. HENT: Positive for hearing loss. Dry mouth. Hearing aids Eyes: Dry eyes Respiratory: Negative. Cardiovascular: Negative. Gastrointestinal: IBS: cured per patient Endocrine: Negative. Genitourinary: Negative. Musculoskeletal: Positive for arthralgias, back pain and myalgias. RLS Leg and foot cramps Skin: Negative. Allergic/Immunologic: Negative. Neurological: Positive for numbness. S/P surgery for acoustic neuroma. Poor Balance Hematological: Negative. Vitals: Blood pressure 130/74, pulse 65, height 1.524 m (5'), weight 56.2 kg (124 lb), SpO2 99%. Physical Exam Vitals and nursing note reviewed. Constitutional: Appearance: Normal appearance. HENT: Head: Normocephalic and atraumatic. Comments: S/P surgery for acoustic neuroma Right Ear: External ear normal. Decreased hearing noted. Left Ear: External ear normal. Decreased hearing noted. Ears: Comments: Hearing aids Nose: Nose normal. Mouth/Throat: Mouth: Mucous membranes are dry. Pharynx: Oropharynx is clear. Eyes: Extraocular Movements: [...] hand: Decreased strength. Cervical back: Neck supple. Right upper leg: Normal. Left upper leg: Normal. Right knee: Crepitus present. Left knee: Crepitus present. Right lower leg: Normal. Left lower leg: Normal. Right ankle: Normal. Left ankle: Normal. Skin: General: Skin is warm and dry. Neurological: Mental Status: She is alert and oriented to person, place, and time. Cranial Nerves: Cranial nerves 2-12 are intact. Motor: Weakness present. Gait: Gait is intact. 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 Oriented to person, place, and time. Cranial Nerves CN II: Vision test: Glasses Dry eyes. CN III, IV, : Extraocular movements intact bilaterally. Pupils equal round and reactive to light bilaterally. Gait Normal gait. 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 Assessment and Plan Would monitor CBC/LFT/Renal function every 6-12 months as long as SCOTT is positive No evidence of active CTD/CVD/Inflammatory arthritis/SLE/Drug induced lupus/Sarcoid No need to start high dose steroids or immune modulating therapy. At patient's request will Follow-up with me on a PRN basis Further Rx's can be obtained from PCP I return patient to your care. Encounter Diagnoses Name Primary? 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 Time was spent with the patient [...] 3.1 4. Calcium was low at 8.1 and is now normal at 8.5 5. Prolia is every April and October form PCP 6. Osteoporosis under care of PCP 7. Hold Prolia month before and month after surgery. Hold prolia if infection and can restart once off of antiviral/ATB/Antifungal and free of infection. Hold Prolia if have open wound and can restart once wound has healed. 8. OTC Tylenol 9. WBC was low at 3.4 and still is at 3.1 10. SCOTT was positive (times 3) 11. Monitor CBC/LFT/Renal func every 6-12 months [...] F/U treatment by PMR and/or Chronic Pain Management. (Times 2) 13. Rx given for PT: patient has [...] lupus/Sarcoid 18. ESR was normal at 14 and still is at 5 19. Patient is seeing Chronic pain management 20. Negative RF, 21. Ortho Follow-up per Dr. Head 22. UA showed 5 mg/dl of Ketone and 30 mg/dl protein and + blood and no RBC/HPF. And now shows no blood or protein or ketones with no infection 23. Neuro F/U per Dr. Cheek 24. Duloxitine stopped due to N/V/flu like illness. 25. dsDNA was elevated at 23 and still is at 15 26. Negative SSA., SSB, Chromcatin, Michelle-1, Scleroderma, TOW TRUCK DISPATCHER, Leal, Centromere, ANCA, HLA-B27, Celiac, CCP, Lyme, 27. C3 was normal at 135 and still is at 128 28. C4 was normal at 28 and still is at 27 29. KIMBERLY level was elevated at 87 with normal CXR and is normal at 77 30. Patient is going to F/U with PCP for referral to chronic pain management and is now seeing chronic pain management 31. Patient declines referral to Hem/Onc 32. Thank you for allowing me to participate in the care of your patient. With your permission I would like to F/U with your patient. 33. Monitor CBC/LFT/Renal func every 6-12 months as long as patient is on daily NSAID 34. TP is low at 6.3 35. Patient given educational material on SLE in the form of a pamphlet from the arthritis foundation. Different treatment options were discussed with the patient today. 36. No need to start high dose steroids or immune modulating therapy. 37. At patient's request will Follow-up with me on a PRN basis 38. Further Rx's can be obtained from PCP 39. I return patient to your care. documented in this encounter [facility] 09-18-2023 History of Present illness Narrative Images from the original note were not included. NEURO-OPHTHALMOLOGY CLINIC VISIT History of Present Illness: JOE Castrejon is a 72 y.o. woman with POH of Binocular Diplopia who is present today for a neuro-ophthalmic evaluation, referred by Patience Osman MD. Patient complains of double vision and dry eye. Patient states that she's had double vision her whole life but she's always been able to function with prism or pull them together herself but she states that's no longer working; that started about a year ago. Patient denies hx of patching. Patient confirms that closing one eye does make the double vision better. She states that the images are horizontal in nature. She does notice a change with gazes. She's unable to discern whether it's worse or better at near of distance. No hx of surgery for correction. Patient states that she did try a fresnel but after her brain surgery the combination of the two was too much to tolerate and she tried it 3 different times without success. Patient confirms longstanding flashes and floaters and occasional headaches. Patient notes changes to her peripheral vision and can't tell what's really there. Patient denies changes in colors or the brightness of colors. 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 Ocular History: Severe dry eye: Yes Cataracts: Yes Glaucoma: No Refractive error: Yes Diabetes: No AMD: No Major eye surgery: No Ocular trauma: No Head/brain injury: Yes, brain tumor - 2009 Outside Ocular Care: Patient follows with Dr. Arturo Leal, for routine eye exams. Patient last dilated eye exam was completed less than 6 months ago. Care Team: Referring: Patience Osman MD Ophth/Optom: Arturo Leal PCP: Stella Neurologist: Kwaku Nino Relevant Labs & Imaging: MRI scans included Lab work being done in [place] Last edited by Cordelia Raza on 09/18/2023 2:46 PM. Review of Outside of Prior Records: Outside Records: referring records reviewed CareEverywhere: none Past Medical, Surgical, and Social History: Ayesha has a past medical history of Arthritis (2004), GERD (gastroesophageal reflux disease) (2004??), and Hypothyroidism (1999???). Ayesha has no past surgical history on file. Ayesha family history includes Colorectal Cancer in her father; Neurologic Disease in her brother; Thyroid Cancer in her mother; Vision Problems in her sister and sister. Ayesha reports that she quit smoking about 47 years ago. Her smoking use included cigarettes. She started smoking about 55 years ago. She has a 8 pack-year smoking history. She has never used smokeless tobacco. She reports current alcohol use of about 2.0 standard drinks of alcohol per week. She reports that she does not use drugs. Current Medications: Current Outpatient Medications: calcium carbonate 1250 MG tablet, 1 po q day, Disp: 30 tablet, Rfl: 11 Celecoxib 200 MG capsule, Take 1 capsule by mouth daily., Disp: , Rfl: denosumab (Prolia) 60 MG/ML Solution Prefilled Syringe injection, Inject 1 mL under the skin., Disp: , Rfl: DIGESTIVE ENZYMES PO, Take by mouth., Disp: , Rfl: fluorometholone 0.1 % Suspension ophthalmic suspension, 1 drop 4 times daily., Disp: , Rfl: fluticasone 50 MCG/ACT Suspension nasal spray, 1 spray by Does Not Apply route., Disp: , Rfl: Folinic-Plus 4-50-2 MG tablet, Take 1 tablet by mouth daily., Disp: , Rfl: Gabapentin 100 MG capsule, Take 1 capsule by mouth 2 times daily., Disp: , Rfl: Levothyroxine 50 MCG tablet, Take 1 tablet by mouth daily., Disp: , Rfl: omeprazole [address] capsule, Take 1 capsule by mouth daily., Disp: , Rfl: Oyster Shell Calcium w/D 500-5 MG-MCG tablet, Take by mouth daily., Disp: , Rfl: potassium chloride 10 MEQ Tab CR tablet ER, Take 2 tablets by mouth 2 times daily., Disp: , Rfl: RA Magnesium 500 MG capsule, Take 1 capsule by mouth at bedtime., Disp: , Rfl: rOPINIRole 1 MG tablet, take 1 tablet by mouth at bedtime 1 TO 3 HOURS BEFORE BEDTIME, Disp: , Rfl: Terbinafine 250 MG tablet, Take 1 tablet by mouth daily., Disp: , Rfl: oyster shell calcium 1250 (500 Ca) MG tablet, take 1 tablet by mouth once daily, Disp: 360 tablet, Rfl: 0 Allergies: Ayesha is allergic to pseudatex [pseudoephedrine-guaifenesin]. Review of Systems: Pertinent positives and negatives listed in HPI; all other systems reviewed and negative. Exam: Cooperation: excellent Base Eye Exam Visual Acuity (Snellen - Linear) Right Left Dist cc 20/40 +1 20/25 -2 Dist ph cc 20/30 +2 20/25 -2 Correction: Glasses Pupils Pupils APD Right PERRL None Left PERRL None Neuro/Psych Oriented x3: Yes Mood/Affect: Normal Additional Tests Stereo Fly: + Animals: 04/19 Circles: 09/25 Strabismus Exam Method: APCT Fixing Eye: Left Correction: cc Distance Near Near +3DS N Bifocals Orhto 0 0 0 Ortho 0 0 0 RET 3 0 0 Ortho 0 0 Ortho 0 0 0 ET 5 0 0 0 Slit Lamp and Fundus Exam External Exam Right Left External Right Cranial Nerve 7 Palsy Normal Slit Lamp Exam Right Left Lids/Lashes Normal Normal Conjunctiva/Sclera White and quiet White and quiet Cornea Clear Clear Anterior Chamber Deep and quiet Deep and quiet Iris Round and reactive Round and reactive Lens Clear Clear Vitreous Normal Normal Fundus Exam Right Left Disc Normal Normal C/D Ratio 0.35 0.3 Refraction Wearing Rx Sphere Cylinder Eyota Add Right [place] +0.75 017 +2.50 Left [place] +0.50 004 +2.50 In-Office Testing: None Relevant Labs and Imaging Reports: Outside Labs Summary of HPI, Assessment, and Plan: Ayesha Castrejon is a 73 y.o. female who presented 09/18/2023 as a referral from Dr. Patience Galicia for evaluation of diplopia. She has a relevant history of prism use for years. She recalled diplopia her whole life which was made manageable with prism glasses, but felt these stopped working about 1 year prior. Occluding either eye resolved the diplopia. She tried Fresnel atop specs, but this was more disorienting and she didn't tolerate it. 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 On exam, she had excellent stereoacuity and great alignment in primary gaze. Only in far R gaze and far downgaze did she have mild RET. Ductions appeared full. She had no obvious fatigability. 1. Diplopia 2. 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 Her chief contention with prisms were that they were disorienting, and today's incomitance supports the notion that prisms for far R gaze would have been difficult to tolerate in primary gaze. Therefore, offered Fresnel 4^ CARLTON cut for the temporal 1/3rd of her R lens, and over the bifocal segment (making a reverse L shape). She felt this was tolerable. Recommend MG panel as rule out as well. Strict return precautions reviewed. Return in about 3 months (around 12/19/2023) for Stereo Vision, Color Vision, VA/MB. Srini Daley MD Neuro-Ophthalmology and Adult Strabismus Department of Ophthalmology [facility] P: [phone] REASON FOR VISIT Ayesha Castrejon presents to clinic today for a New Patient visit. Chief Complaint Double Vision HISTORY OF PRESENT ILLNESS HPI Ayesha Castrejon is a 72 y.o. woman with POH of Binocular Diplopia who is present today for a neuro-ophthalmic evaluation, referred by Patience Osman MD. Patient complains of double vision and dry eye. Patient states that she's had double vision her whole life but she's always been able to function with prism or pull them together herself but she states that's no longer working; that started about a year ago. Patient denies hx of patching. Patient confirms that closing one eye does make the double vision better. She states that the images are horizontal in nature. She does notice a change with gazes. She's unable to discern whether it's worse or better at near of distance. No hx of surgery for correction. Patient states that she did try a fresnel but after her brain surgery the combination of the two was too much to tolerate and she tried it 3 different times without success. Patient confirms longstanding flashes and floaters and occasional headaches. Patient notes changes to her peripheral vision and can't tell what's really there. Patient denies changes in colors or the brightness of colors. 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 Ocular History: Severe dry eye: Yes Cataracts: Yes Glaucoma: No Refractive error: Yes Diabetes: No AMD: No Major eye surgery: No Ocular trauma: No Head/brain injury: Yes, brain tumor - 2009 Outside Ocular Care: Patient follows with Dr. Arturo Leal, for routine eye exams. Patient last dilated eye exam was completed less than 6 months ago. Care Team: Referring: Patience Osman MD Ophth/Optom: Arturo Leal PCP: Stella Neurologist: Kwaku Nino Relevant Labs & Imaging: MRI scans included Lab work being done in [place] Last edited by Cordelia Raza on 09/18/2023 2:46 PM. Allergies, medications & history reviewed & updated by Cordelia Raza REVIEW OF SYSTEMS Review of Systems HENT: Positive for tinnitus. Eyes: Positive for visual disturbance. Neurological: Negative for syncope and speech difficulty. >10 minutes was spent with patient updating allergies, medications, and medical history. Referring Physician: Patience Osman MD [address] [facility] [address] [place] [address] Ayesha Castrejon is a 72 y.o. female who presents to clinic for Evaluation of Diplopia Brief HPI: Pt notes history of binocular diplopia for Her whole life. She denies history of patching or strabismus surgery. However, she has a long history of wearing prism glasses but notes these are no longer working for her. She notes this diplopia is horizontal. Pt reports that she has tried fresnel prisms but following her brain surgery of acoustic neuroma she was unable to tolerate them. Pt notes some dryness but denies any other eye pain or eye discomfort OU. Pt denies changes with color vision or brightness OU. 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 Recommend Fresnel over Right Temporal dante field to help with diplopia in right gaze. Recommend MG blood panel to r/o Myasthenia Gravis. Follow-up in 3 months Dispense Fresnel over Temporal vision OD Follow-up in 3 months Strict Return Precautions Reviewed IShawn, acted as a scribe for Dr. Srini Daley M.D. for this note of 09/18/2023 3:55 PM. I have reviewed edited the exam and documentation by brockibe, Shawn Vincent. Please see my full note for final visit documentation. Srini Daley MD Neuro-Ophthalmology and Adult Strabismus Department of Ophthalmology [facility] documented in this encounter [facility] 04-02-2023 History of Present illness Narrative Subjective [...] is feeling better since she saw a Senior Relationship Manager who started her on Enzymes and low [...] disease), cervical Long-term use of high-risk medication senior living current use of systemic steroids History of [...] 26. Negative SSA., SSB, Chromcatin, Michelle-1, Scleroderma, TOW TRUCK DISPATCHER, Leal, Centromere, ANCA, HLA-B27, Celiac, CCP, Lyme, [...] with your patient. documented in this encounter [facility] 09-25-2022 History of Present illness Narrative [...] 0 on the left side. 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 Assessment and Plan Would [...] 26. Negative SSA., SSB, Chromcatin, Michelle-1, Scleroderma, TOW TRUCK DISPATCHER, Leal, Centromere, ANCA, HLA-B27, Celiac, CCP, Lyme, [...] to your care. documented in this encounter [facility] 08-07-2022 History of Present illness Narrative [...] 0 on the left side. 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 Assessment and Plan Would [...] per Dr. Cheek documented in this encounter [facility] 12-13-2021 Note HNO ID: [id number] Author: Robyn Morales MD Service: ? Author Type: Physician Type: Progress Notes Filed: 12/13/2021 9:14 AM Note Text: FOLLOW UP VISIT - ENDOSCOPY NAME: Ayesha Segovia [facility] NO.: [id number] DATE OF SERVICE: 12/13/2021 : 1950 REFERRING [...] retrieved. Clips (MR conditional) were placed. 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 - The examination was otherwise normal on [...] instructed to follow-up with me as needed. Robyn Morales MD [facility] 12-13-2021 History of Present illness Narrative FOLLOW UP VISIT - ENDOSCOPY NAME: Ayesha Segovia [facility] NO.: [id number] DATE OF SERVICE: 12/13/2021 : 1950 REFERRING [...] retrieved. Clips (MR conditional) were placed. 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 - The examination was otherwise normal on [...] instructed to follow-up with me as needed. Robyn Morales MD documented in this encounter [facility] 12-04-2021 Nurse Note Arrived in [...] nausea. Resting comfortably. documented in this encounter [facility] 12-04-2021 History and physical note [...] can be found in the attached. SIGNATURE: Robyn Morales MD PATIENT NAME: Ayesha Castrejon DATE: December 04, 2021 TIME: 9:55 AM Source Note - Robyn Morales MD - 12/04/2021 9:45 AM EDT [...] RELIEF) 50 mcg/actuation nasal spray Use 1 Sheridan in each nostril as needed. VITAMIN E [...] entered by the nurse and reviewed by de Nursing Notes: Mary SousaGUERO 09/19/2021 9:10 AM Signed REVIEW OF SYSTEMS: [...] me after the testing has been completed. Robyn Morales MD Images from the original note [...] RELIEF) 50 mcg/actuation nasal spray Use 1 [place]idan in each nostril as needed. VITAMIN E [...] entered by the nurse and reviewed by me Nursing Notes: Mary Sousa LPN 09/19/2021 9:10 [...] me after the testing has been completed. Robyn Morales MD documented in this encounter [facility] 09-20-2021 Note HNO ID: [id number] Author: Robyn Morales MD Service: ? Author Type: Physician [...] RELIEF) 50 mcg/actuation nasal spray Use 1 Sheridan in each nostril as needed. - VITAMIN [...] entered by the nurse and reviewed by de Nursing Notes: Mary Sousa LPN 09/19/2021 9:10 [...] tuberculosis, denies pneumonia, (more content not included)... [facility] Evaluation note Diagnosis Family history of malignant neoplasm of gastrointestinal tract- Primary [facility] Diagnosis Adenomatous polyp of colon, unspecified part of colon- Primary [facility] Diagnosis Cervicalgia- Primary Dorsalgia Pain in [...] site of [facility] Hypocalcemia- Primary Fibromyalgia [...] findings Other proteinuria 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 Hypothyroidism, unspecified type Fibromyalgia Mylagia and myositis, unspecified History of neuropathy Personal history of other disorders of nervous system and sense organs Keratoconjunctivitis sicca Sicca syndrome DDD (degenerative disc disease), cervical Degeneration of cervical intervertebral disc Lumbar degenerative disc disease Degeneration of lumbar or lumbosacral intervertebral disc Thoracogenic scoliosis of thoracic region Thoracogenic scoliosis Thoracic degenerative disc disease Degeneration of thoracic or thoracolumbar intervertebral disc Leukopenia, unspecified type Lymphopenia Lymphocytopenia SCOTT positive Other and unspecified nonspecific immunological findings Dry eyes Tear film insufficiency, unspecified Encounter for monitoring denosumab therapy Encounter for therapeutic drug monitoring Family history of rheumatoid arthritis Family history of arthritis History of fibromyalgia Personal history of other musculoskeletal disorders History of osteoporosis Personal history of other musculoskeletal disorders senior living current use of non-steroidal anti-inflammatories (NSAID) Encounter for long-term (current) use of non-steroidal anti-inflammatories Long-term use of high-risk medication Neutropenia, unspecified type Positive double stranded DNA antibody test Other and unspecified nonspecific immunological findings [facility] Diagnosis Screen for colon cancer- Primary Special screening for malignant neoplasms, colon Adenomatous polyp of colon, unspecified part of colon Family history of colon cancer in father documented in this encounter [facility] for referral (narrative)* Outpatient Procedure (Routine) - Closed Specialty Diagnoses / Procedures Referred By Juan recio Referred To Contact [facility] Diagnoses Family history of malignant neoplasm of gastrointestinal tract Procedures COLONOSCOPY SCREENING COLONOSCOPY FLX DX W/COLLJ SPEC WHEN Robyn Hartman MD [address] [facility] [place] [address] [facility] [address] [place] [address] Referral ID Status Reason Start Date Expiration Date V isits Requested Visits Authorized [id number] Closed Auto-Generate d Referral 09/19/2021 09/19/2022 1 1 [facility] for referral (narrative)* Outpatient Procedure (Routine) - Authorized Specialty Diagnoses / Procedures Referred By Juan recio Referred To Contact [facility] Diagnoses Screen for colon cancer Adenomatous polyp of colon, unspecified part of colon Procedures COLONOSCOPY SCREENING COLONOSCOPY FLX DX W/COLLJ SPEC WHEN Maren Bardales APRN.CNP [address] [place] [address] [facility] [address] [place] [address] Referral ID Status Reason Start Date Expiration Date Visits Requested Visits Authorized [id number] Authorized Auto-Generat ed Referral 11/13/2023 11/12/2024 1 1 T [facility] for visit Narrative* Outpatient Procedure (Routine) - Closed Specialty Diagnoses / Procedures Referred By Juan recio Referred To Contact [facility] DISEASE [facility] Diagnoses Family history of malignant neoplasm of gastrointestinal tract Procedures COLONOSCOPY SCREENING COLONOSCOPY FLX DX W/COLLJ SPEC WHEN Robyn Hartman MD [address] [place] [address] [facility] [place] [address] [place] [address] Referral ID Status Reason Start Date Expiration Date V isits Requested Visits Authorized [id number] Closed Auto-Generate d Referral 09/19/2021 09/19/2022 1 1 [facility] Summary Purpose Family History No [...] Given 12/04/2021 10:09 AM EDT 25 mcg Given by LIP 12/04/2021 10:03 AM EDT 25 mcg Given by LIP 12/04/2021 10:01 AM EDT 50 mcg midazolam (PF) 1-5 mg injection (VERSED) 1-5 mg, INTRAVENOUS, DIRECTED, Starting on Fri12/04/21 at 1030, Until Fri12/04/21 at 1429, DOSING DIRECTED BY PHYSICIAN FOR PROCEDURAL SEDATION ONLY, Intraprocedure Given by LIP 12/04/2021 10:04 AM EDT 1 mg Given by LIP 12/04/2021 10:03 AM EDT 1 mg Given by LIP 12/04/2021 10:01 AM EDT 3 mg Reason for Referral Specialty Diagnoses / Procedures Referred By Juan recio Referred To Contact Physical Therapy Diagnoses Cervicalgia Dorsalgia History of neuropathy DDD (degenerative disc disease), cervical Disorder of bone and cartilage Lumbar degenerative disc disease Leukopenia, unspecified type SCOTT positive Family history of rheumatoid arthritis Fatigue, unspecified type Fibromyalgia History of fibromyalgia History of osteoporosis Long-term use of high-risk medication Hypothyroidism, unspecified type Abnormal reflexes of lower extremity Wiliam Nolen, Caryn Monsivais, DO [address] [place] [address] Referral ID Status Reason Start Date Expiration Date V isits Requested Visits Authorized [id number] New Request 08/07/2022 09/01/2023 1 1 Scheduling Instructions . Additional Source Comments INFORMATION SOURCE (unrecogn ized section and content) DATE CREATED AUTHOR 08/07/2017 [facility] DATE CREATED AUTHOR AUTHOR'S ORGANIZ ATION 12/14/2021 [facility] DATE CREATED AUTHOR AUTHOR'S ORGANIZ ATION 08/18/2022 [facility] DATE CREATED AUTHOR AUTHOR'S ORGANIZ ATION 10/04/2023 [facility] DATE CREATED AUTHOR AUTHOR'S ORGANIZ ATION 10/14/2023 [facility] Source Comments (unrecognize d section and content) In the event this informatio n is protected by the Federal Confidentiality of Alcohol and Drug Abuse Patient Records regulations: The Federal rules restrict any use of the information to criminally investigate or prosecute any alcohol or drug abuse patient.[facility] the event this information is protected by the Federal Confidentiality of Alcohol and Drug Abuse Patient Records regulations: The Federal rules restrict any use of the information to criminally investigate or prosecute any alcohol or drug abuse patient.[facility] the event this information is protected by the Federal Confidentiality of Alcohol and Drug Abuse Patient Records regulations: The Federal rules restrict any use of the information to criminally investigate or prosecute any alcohol or drug abuse patient.[facility] Teams (unrecognized sec tion and content) Manager Eligibility Relationship Specialty Start Date End Date Malvin Douglas MD [address] [place] [address] PCP - General Family Medicine 12/16/12 Manager Eligibility Relationship Specialty Start Date End Date Malvin Douglas MD [address] [place] [address] PCP - General Family Medicine 12/16/12 Manager Eligibility Relationship Specialty Start Date End Date Malvin Douglas MD [address] [place] [address] PCP - General Family Medicine 08/07/22 Manager Eligibility Relationship Specialty Start Date End Date Malvin Douglas MD [address] [place] [address] PCP - General Family Medicine 08/07/22 Manager Eligibility Relationship Specialty Start Date End Date Malvin Douglas MD [address] [place] [address] PCP - General Family Medicine 08/07/22 Manager Eligibility Relationship Specialty Start Date End Date Malvin Douglas MD [address] [place] [address] PCP - General Family Medicine 08/07/22 Manager Eligibility Relationship Specialty Start Date End Date Malvin Douglas MD [address] [place] [address] PCP - General Family Medicine 08/07/22 Manager Eligibility Relationship Specialty Start Date End Date Malvin Douglas MD [address] [place] [address] PCP - General Family Medicine 12/16/12 Reason for Visit (unrecogniz ed section and content) Reason Comments Post Op Follow Up Reason Comments New Patient Patient was referred [...] worse. Reason Comments Follow-up Patient is here alka ro for a follow up, PRN at last appointment 09/19/2022. Patient states she is feeling better since she saw a Senior Relationship Manager who started her on Enzymes and low carb diet to control her IBS. Reason Comments Double Vision Specialty Diagnoses / Procedures Referred By Juan recio Referred To Contact Ophthalmology Diagnoses Diplopia Patience Osman MD [address] [facility] [address] [place] [address] Srini Daley MD [address] [facility] [address] [place] [address] Referral ID Status Reason Start Date Expiration Date V isits Requested Visits Authorized [id number] Pending Review 07/09/2023 08/02/2024 1 1 Reason Comments Follow-up Patient is here alka ro for her 6 Month Follow-up. Patient states she is doing pretty good since her last appointment. Patient states she is having right shoulder pain, she is going to see Dr. Sonido Upton. Reason Comments Consult FOR RECORDS PERTAINING TO PATIENTS WHO ARE [...] BE BASED ON THE PRIMARY CLINICAL RECORDS. [facility] [employer] [facility]. provides no warranty or guarantee of the accuracy or completeness of information in this document.
== END | disposition home or self-care (01) ==
LOC: MRI 13:02
PROVIDERS: PCP Family Medicine; Referring Provider Orthopaedic Surgery Sports Medicine; Visit Provider Orthopaedic Surgery Sports Medicine
DX: M25.811 Other specified joint disorders, right shoulder (principal)
CPT/HCPCS: 73221

== ENCOUNTER 2024-01-26 10:30 | Outpatient (RCR) | payer MEDICARE, BC, SELFPAY ==
--- NOTE | 2023-12-19 15:58 | HP.PTEVAL ---
Patient's Visit Information Visit Information Visit Information: AYESHA FOLEY is a 73 year old F referred to Physical Therapy by Dr. Nirmal Head MD with a diagnosis of R SHLD PAIN, ROTATOR CUFF TEAR & ARTHROSIS OF AC JT.. Date of Evaluation: 12/19/23 Physical Therapist: Key Crockett PT, Cert MDT Visit Plan Frequency: 3x /Week Duration: 4-6 Weeks Plan: *Linear interstitial/delaminating tear of the conjoined distal supraspinatus/infraspinatus tendon junction, measuring 1.7 cm in length.* *OSTEOPOROSIS* R SHLD ROM, STRETCHING AND STRENGTHENING TO HELP RESTORE FULL FUNCTION IN CONFORTABLE ROM AND INTENSITY. MODALITIES NEEDED FOR PAIN AND INFLAMMATION CONTROL. Subjective Subjective: Work/Leisure: RETIRED. 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 Present symptoms: R SHLD PAIN. INTERMITTENT R UE NUMBNESS AND TINGLING WHEN LYING ON R SIDE AT NIGHT. Present since: SEP 2023 Pain Scale: Worst - 4/10 Least - 0/10. DULL ACHE AT TIMES AT REST BUT OTHER TIMES THINKS IT IS 0/10. 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 Symptoms at onset: ANTERIOR R SHLD PAIN Worse: PUSHING DOWN, PUSHING OUT AND PULLIING UP. CORTISONE SHOT 10/10/23 MADE IT WORSE FOR ABOUT A WEEK - I COULDN'T MOVE MY ARM FOR ABOUT A WEEK. LYING ON R SIDE. PULLING PANTS UP. HANGING THINGS. PUSHING SWEEPER OR EVEN DOING THE MOTIONG WITHOUT ANYTHING IN HAND - THEN IT ACHES. Better: AVOIDING ABOVE. Disturbed sleep: SOMETIMES. Previous history/Previous treatment: NO This episode: ONE CORTISONE SHOT. ICE. CHIROPRACTIC IN THE BEGINNING - WITHOUT BENEFIT PER PATIENT REPORT. Imagin12/11/23: R SHLD MRI: IMPRESSION: Linear interstitial/delaminating tear of the conjoined distal supraspinatus/infraspinatus tendon junction, measuring 1.7 cm in length. Mild hypertrophic acromioclavicular arthrosis. Mild subacromial-subdeltoid bursitis. PMH/Recent major surgery: chronic neck pain - chiropractic regularly. 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 Pericardial effusion Hypothyroidism GERD (gastroesophageal reflux disease) RLS (restless legs syndrome) DDD (degenerative disc disease) Hyperlipidemia Premature ventricular contraction Premature atrial contractions Hx of basal cell carcinoma excision History of eyelid surgery History of cochlear implant History of vein stripping History of shoulder surgery History of tubal ligation History of hysterectomy History of tonsillectomy Objective Objective: Sitting Posture/Standing Posture: FH. RSH'S. NO TORTICOLLIS. Active Correction of posture: NE. DOES NOT MAINTAIN. Other Observations: INDEP GAIT AND TRANSFERS. Sensory deficit: JONH UE LIGHT TOUCH SENSATION IS INTACT AND SYMMETRICAL ROM deficit: JONH SHLD ACTIVE FLEXION GROSSLY 140 DEG. JONH SHLD ACTIVE ABD GROSSLY 160 DEG. SUPINE IR/ER WITH 70 DEG ABD = 60/65 DEG. PATIENT DENIES INCREASED PAIN WITH AROM TESTING R SHLD FLEX AND ABD TESTING. C/O PAIN WITH IR/ER TESTING BUT ESPECIALLY IR TESTING. SHE ALSO REPORTS R SHLD ACHING AFTER MAKING REPETATIVE FORWARD AND BACKWARD MOTION WITH R ARM IF VACUUMING. Motor deficit: STRAIN GUAGE TESTING MEASURED IN [place] [place]: SHLD FLEX R 5.9, L 11.4 LBS SHLD ABD R 9.2, L 16.1 LBS SHLD IR R 10.4, L 14.3 LBS SHLD ER R 7.1, L 12.9 LBS ELBOW FLEX R 9.1, L 12.8 LBS ELBOW EXT R 7.0, L 8 LBS. 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 L 35 LBS Cervical Mvmt Loss: Flex: NIL Pro: NIL Ext: MOD Ret: MOD RSB: MOD LSB: MOD R Rot: MIN L Rot: NIL PATIENT DENIES NECK AND SHLD PAIN WITH CERVICAL ROM TESTING. Postural strength: FAIR Balance/Special Test Scores Quick DASH Score: 18.1800 Goals Goal 1:: DECREASE C/O R SHLD PAIN BY AT LEAST 75% TO EASE ADL'S. Goal Time Frame: 4-6 Weeks Goal 2:: RESTORE FULL ROM OF R SHLD COMPARED TO L Goal Time Frame: 4-6 Weeks Goal 3:: INCREASE R SHLD STRENGTH TO WITHIN 80% OF L Goal Time Frame: 4-6 Weeks Goal 4:: INDEP HEP Goal Time Frame: 4-6 Weeks Rehabilitation Potential Physical Therapy Diagnosis: R SHLD TIGHTNESS AND WEAKNESS. Rehabilitation Potential: Good Anticipated Interventions Patient/Client Instruction: Educate patient on: Condition, Plan of Care and Risk Factors For the Purpose of:: To improve self management Therapeutic Exercise to Include: Strength training, Body mechanics, Postural training, Flexibilty training, Neuromotor development and Scapular Strength/Stabilization For the Purpose of:: To decrease pain, To increase ROM, To improve muscle performance and motor function, To improve ability to perform ADL's, To improve performance and independence with ADL's, To improve ability of physical actions for home/community/work/leisure, To increase flexibility/ROM and To improve self management Cryotherapy (ice pack, ice massage): Yes Thermo therapy (hot pack): Yes Ultrasound (thermal/non thermal): Yes For the Purpose of:: To decrease pain, To decrease swelling/inflammation and To improve nutrient delivery to tissue Text: Thank you for the opportunity to evaluate your patient. For Medicare and Medicare HMO plans, please review the plan of care and approve it. It will need to be FAXED BACK to us at [phone] for Medicare purposes. For Medicare only, by signing this I certify the plan of care. Please let me know if there are questions or concerns regarding this plan of care. Physician Signature: Date:
--- NOTE | 2024-01-26 12:48 | HP.PTDCSUM ---
Discharge Summary D/C summary: It has been my pleasure to treat AYESHA FOLEY referred by Dr. Nirmal Head MD, with the diagnosis of R SHLD PAIN, ROTATOR CUFF TEAR & ARTHROSIS OF AC JT. for a total of 7 visit(s). Discharge Date: 01/26/24 Please see the following information for a summary of their discharge status. Subjective Subjective: I'M DOING EVERYTHING NOW THAT I WAS BEFORE I STARTED THERAPY BUT I'M NOT BACK TO THE GYM YET. SHE REPORTS SHE WENT TO THE GYM ABOUT 3 TIMES AFTER THE TEAR BEFORE SHE STARTED THERAPY BEFORE SHE KNEW IT WAS A TEAR. SHE STATES SHE LOVES DOING PHYSICAL THERAPY BUT THE PAIN IS GETTING WORSE. PATIENT REPORTS NO PAIN AT REST BUT UP TO 6 - 7 PAIN AT TIMES THAT RADIATES DOWN TO HER FORARM WHEN SHE MOVES CERTAIN WAYS. SHE STATES WHEN SHE LIFTED THE 22 LB [place] OUT OF THE [employer]ZER IT WASN'T VERY SMART AND IT HURT HER ARM. Pain R SHLD: Pain Intensity (Out of 10): 3 Overall Improvement % Improvement: 0 Objective Objective/Function: PATIENT WAS SEEN TODAY FOR RE-ASSESSMENT OF PROGRESS TOWARD THE SET PT GOALS AND THE NEED FOR FURTHER PHYSICAL THERAPY VS READINESS FOR DISCHARGE. PATIENT DEMONSTREATES INCREASED R SHLD ELEVATION TODAY AND SIGNIFICANTLY INCREASED R SHLD STRENGTH WITH TESTING BUT SHE IS REPORTING MORE PAIN AND DENIES INCREASED FUNCTION SINCE STARTING PT. PHYSICIAN RE-ASSESSMENT RECOMMENDED. PATIENT AGREEABLE. UPON EXAM TODAY: ROM deficit: R SHLD ACTIVE FLEXION GROSSLY 152 DEG. R SHLD ACTIVE ABD 160 DEG. PATIENT ACTUALLY HAS MORE ELEVATION IN R UE THAN L NOW. Motor deficit: STRAIN GUAGE TESTING MEASURED IN [place]: (PATIENT ACTUALLY HAS MORE STRENGTH IN R SHLD NOW THAN [facility]). 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 Goal Progress: Not Progressing Goal 2:: RESTORE FULL ROM OF R SHLD COMPARED TO L Goal Progress: Goal Met Goal 3:: INCREASE R SHLD STRENGTH TO WITHIN 80% OF L Goal Progress: Goal Met Goal 4:: INDEP HEP Goal Progress: Goal Met Plan Plan: D/C D/C Information d/c sentence: If there are questions or concerns regarding this patient's physical therapy, please feel free to call me at [phone]. Thank you for the referral of this patient. Sincerely, Key Crockett, PT, Cert MDT Balance/Gait/Functional tests Balance/Special Test Scores Quick DASH Score: 20.4525 Improvement % Improvement: 0
== END 2024-01-26 13:57 | disposition home or self-care (01) ==
LOC: PT 10:30
PROVIDERS: PCP Family Medicine; Referring Provider Orthopaedic Surgery Sports Medicine; Visit Provider Orthopaedic Surgery Sports Medicine
DX: M25.511 Pain in right shoulder (principal); M25.811 Other specified joint disorders, right shoulder; M75.101 Unspecified rotator cuff tear or rupture of right shoulder, not specified as traumatic; M19.011 Primary osteoarthritis, right shoulder
CPT/HCPCS: 97110; 97140; 97162; 97530

== ENCOUNTER → 2024-01-29 | Outpatient (CLI) | payer MEDICARE, BC, SELFPAY ==
--- NOTE | 2024-01-29 10:05 | BI_ITS ---
MAMMOGRAPHY - BILATERAL SCREENING REASON FOR EXAM: Female, 73 years old. Routine annual screening examination. PERTINENT HISTORY: Non-contributory. TECHNIQUE: Digital bilateral breast vandana (3D mammographic acquisition) in the CC and MLO projections. 2-D mediolateral oblique (MLO) and craniocaudad (CC) views of both breasts were obtained. CAD: Full Field Digital Mammography with Computer Added Detection was performed. COMPARISON: Comparison is made with prior study dated December 30, 2022 and December 17, 2021. FINDINGS: Breast Composition: There are scattered areas of fibroglandular density. There are no dominant masses or suspicious calcifications. No other significant abnormalities are identified. There has been no significant change since the prior study. BI/SCRN MAMM (CAD)W/VANDANA BILAT IMPRESSION: Stable bilateral screening mammogram. Yearly follow-up mammogram recommended. (A) ASSESSMENT CATEGORY: BIRADS Category 1: Negative. A letter regarding these results will be sent to the patient by the facility within 30 days. Approximately 10% of breast cancers are not detected by mammography. A normal mammogram should not delay biopsy of a clinically suspicious abnormality. [id number] Electronically Signed: Kingston Domingo MD at 10:46 EST ,
== END | disposition home or self-care (01) ==
LOC: OPBI 10:03
PROVIDERS: PCP Family Medicine; Referring Provider Family Medicine; Visit Provider Family Medicine
DX: Z12.31 Encounter for screening mammogram for malignant neoplasm of breast (principal)
CPT/HCPCS: 77063; 77067

== ENCOUNTER → 2024-03-18 | Outpatient (CLI) | payer MEDICARE, BC, SELFPAY ==
[2024-03-18 15:51] LABS: Free T3 2.4 pg/mL (2.18-3.98)
[2024-03-20 04:07] LABS: Thyroid Peroxidase AB 10 IU/mL (0-34)
== END | disposition home or self-care (01) ==
LOC: MFPLAB 13:55
PROVIDERS: PCP Family Medicine; Visit Provider Family Medicine
DX: E03.9 Hypothyroidism, unspecified (principal)
CPT/HCPCS: 36415; 84439; 84443; 84481; 86376

== ENCOUNTER 2024-03-31 09:46 | Day surgery (SDC) | payer MEDICARE, BC, SELFPAY ==
--- NOTE | 2024-03-19 08:34 | EKG12_ITS ---
Test Reason : PREOP Blood Pressure : */* mmHG Vent. Rate : 67 BPM Atrial Rate : 67 BPM P-R Int : 172 ms QRS Dur : 84 ms QT Int : 406 ms P-R-T Axes : 59 22 61 degrees QTcB Int : 429 ms Normal sinus rhythm Normal ECG Confirmed by TRINO CAIN, SONDRA ([id number]), manager editorial DAMIAN SHAFFER ([id number]) on 03/22/2024 6:08:31 AM Referred By: Nirmal Head Confirmed By: SONDRA JAMESON MD
[2024-03-19 08:47] LABS: Absolute Lymphocyte Count 1.26 X10^3/uL (0.83-4.51); Absolute Neutrophil Count 1.9 X10^3/uL (2.0-7.7); Basophil# 0.03 X10^3/uL; Basophil% 0.8 % (0-1); Eosinophils% 5.4 % (0-5); Hematocrit 36.8 % (37-47); Hemoglobin 12.3 g/dL (12.0-15.0); Lymphocyte # 1.26 X10^3/ul (0.83-4.51); Lymphocyte % 33.8 % (19-41); Mean Corp Hgb Conc 33.4 g/dL (32-36); Mean Corpuscular Hgb 31.5 pg (27.0-32.0); Mean Corpuscular Volume 94.4 fL (81-99); Mean Platelet Vol. 8.8 fl (6.2-12.0); Monocyte# 0.38 X10^3/uL; Monocyte% 10.2 % (0-10); NRBC Flagged by Analyzer 0 % (0-5); Neutrophil # 1.85 X10^3/uL (2.7-7.7); Neutrophil % 49.5 % (47-70); Platelet Count 256 K/mm3 (150-450); RBC Distribution Width CV 12.7 % (11.6-14.6); RBC Distribution Width SD 44.1 fl (35.1-43.9); White Blood Count 3.7 K/mm3 (4.4-11.0)
[2024-03-19 09:38] LABS: Anion Gap 5 (5-15); BUN 21 mg/dL (7-18); Calcium,Total 8.8 mg/dL (8.5-10.1); Chloride 109 mmol/L (98-107); EST Glomerular Filtration Rate 87 mL/min (>60); Est Glom Filt Rate - Afr Amer 105 mL/min (>60); Glucose 92 mg/dL (74-106); Potassium 3.8 mmol/L (3.5-5.1); Sodium Level 141 mmol/L (136-145)
[2024-03-31] VITALS (10 sets, daily range): BP systolic 116–147; BP diastolic 50–87; PULSE 54–83; RESP 14–16; TEMP 36.4–36.9; O2SAT 93–100; BMI 22.1
--- NOTE | 2024-03-31 09:49 | PCM.PRE.AN2 ---
ASA Classification* ASA Classification ASA Classification: 2 Assessment & Plan Anesthesia* Anesthesia Assessment Anesthesia Assessment: Discussed sedation and/or anesthesia options, risks, benefits, and alternatives with patient/parents/legal guardian/POA. Questions invited. The patient/parents/legal guardian/POA seems to understand and agrees to proceed with anesthesia plan. Reviewed the physical assessment, medical history, allergy history and patient home medications list prior to surgery/procedure/anesthetic and documented any changes. Performed airway and anesthesia risk assessments. Anesthesia Type Anesthesia Type: General (HX of difficult intuation. hx of pvc's, pac's) Anesthesia Focused Assessment* Airway Assessment Mouth opens: >3 cm Mallampati Score: II Focused Labs Anesthesia Preop lab: CBC WBC 3.7 K/mm3 (4.4-11.0) L 03/19/24 08:26 03/19/24 RBC 3.90 M/mm3 (4.2-5.4) L 03/19/24 08:26 03/19/24 Hgb 12.3 g/dL (12.0-15.0) 03/19/24 08:26 03/19/24 Hct 36.8 % (37-47) L 03/19/24 08:26 03/19/24 Plt Count 256 K/mm3 (150-450) 03/19/24 08:26 03/19/24 CHEMISTRY Potassium 3.8 mmol/L (3.5-5.1) 03/19/24 08:26 03/19/24 Sodium 141 mmol/L (136-145) 03/19/24 08:26 03/19/24 Magnesium 2.4 mg/dL (1.6-2.6) 08/09/22 07:55 08/09/22 Phosphorus 3.4 mg/dL (2.5-4.9) 11/08/20 08:19 11/08/20 BUN 21 mg/dL (7-18) H 03/19/24 08:26 03/19/24 Creatinine 0.70 mg/dL (0.55-1.02) 03/19/24 08:26 03/19/24 Glucose 92 mg/dL (74-106) 03/19/24 08:26 03/19/24 TSH 2.410 uIU/mL (0.358-3.740) 03/19/24 08:26 03/19/24 COAG PT 12.1 SECONDS (11.7-14.9) 02/15/16 09:47 02/15/16 Pre-Assessment Diagnosis/Proposed Procedure Planned Operative Procedure(s): (R) Right shoulder Arthroscopy, subacromial decompression, rotator cuff repair Anesthesia History 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 When Was Last Pacemaker Check QUESTION #4 FULL TEXT: You/Your Family Experience fever (hyperthermia) with Anesthesia Last Oral Intake Last Oral intake: Last Oral Intake NPO since Meds taken in AM with sips of water? 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 Has anyone observed you stop No 03/17/24 11:51 breathing during sleep? STOP Results Negative 03/17/24 11:51 QUESTION #5 FULL TEXT : Do you snore loudly (louder than talking or can be heard through closed doors)? 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 Specify any problems Hx of Preganancy in last 3 No 03/17/24 11:51 Months Nurse Filling Out Transfusion VCHRISTIN 03/17/24 11:51 & Questions: Date: 03/17/24 03/17/24 11:51 Time: 11:54 03/17/24 11:51 Patient unable to answer at this time (ie. 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: /Reproductive Hx- electric locomotive crane operator Hx Now No 03/17/24 11:51 Gestational Age (in weeks): EDC: Hx Hx Para Hx Section SAB No 03/17/24 11:51 Active Medications Active Medications: Current Medications Generic Name Dose Route Start Last Admin Trade Name Freq PRN Reason Stop Dose Admin Cefazolin Sodium 2 gm/ N/A 20 mls @ 400 mls/hr 03/31/24 12:20 IV 03/31/24 12:22 PREOP ONE [facility] Medical History Wears hearing aid Wears glasses Post-menopausal Cancer History of steroid therapy Thyroid disease Arthritis Back pain Former smoker Leg cramps History of echocardiogram History of stress test Cardiology follow-up encounter History of irregular heartbeat Arthrosis of right acromioclavicular joint Right rotator cuff tear Impingement of right shoulder Right shoulder pain Laceration of right ring finger Osteoporosis Brain tumor Pericardial effusion Hypothyroidism GERD (gastroesophageal reflux disease) RLS (restless legs syndrome) Malignant neoplasm of colon Malignant neoplasm of kidney DDD (degenerative disc disease) Hyperlipidemia Premature ventricular contraction Premature atrial contractions Home Medications ?Medication ?Instructions ?Recorded ?Last Taken ?Type levothyroxine 50 mcg tablet 50 mcg PO DAILY 10/03/13 10/01/13 History Prolia 60 mg/mL subcutaneous 60 mg subcut [id number] #1 mL 09/17/21 Unknown Rx syringe (denosumab) cholecalciferol (vitamin D3) 25 4,000 unit PO DAILY 04/03/22 Unknown History mcg (1,000 unit) tablet ipratropium bromide 42 mcg (0.06 2 spray intranasal PRN 04/03/22 Unknown History %) nasal spray gabapentin 100 mg capsule 200 mg PO QHS 04/23/23 Unknown History ropinirole 1 mg tablet 1 mg PO QHS #30 tabs 09/01/23 Unknown Rx calcium 500 mg tablet 500 mg PO DAILY 03/17/24 Unknown History magnesium glycinate 100 mg (as 200 mg PO BID 03/17/24 Unknown History glycinate) tablet (Mag Glycinate) ztqdriczczdb-chxb-ygndkxsl-folic 1 tab PO DAILY 03/17/24 Unknown History acid 400 mcg-biotin 100 mcg tablet omega 3 350 mg-dha 235 mg-epa 90 1 cap PO DAILY 03/17/24 Unknown History mg-fish oil 597 mg capsule,delay rel ([place]-3) turmeric 450 mg-turmeric root 1 cap PO DAILY 03/17/24 Unknown History extract 50 mg capsule vitamin B complex 1 tab PO DAILY 03/17/24 Unknown History Allergy/AdvReac Type Severity Reaction Status Date / Time pseudoephedrine Allergy Rapid Verified 03/17/24 11:37 Heart rate Family History Father CAD (coronary artery disease) Hx of CABG Mother History of permanent cardiac pacemaker placement Surgical History History of laparoscopic cholecystectomy Hx of basal cell carcinoma excision History of eyelid surgery History of cochlear implant History of vein stripping History of shoulder surgery History of tubal ligation History of hysterectomy History of tonsillectomy Social History Smoking Status: Former smoker alcohol intake: current details: occasional Review of Systems (Anesthesia) ROS Narrative System reviewed and no additional complaints, except as documented.
[2024-03-31] MEDS: 0.9% Normal Saline (1000mL) 1,000 ML 15 ML IV (10:19)
--- NOTE | 2024-03-31 10:30 | HP.PCM_ITS ---
HPI - General HPI Narrative AYESHA FOLEY, is a 73 F who presents for right shoulder arthroscopy subacromial decompression rotator cuff repair. No changes to history and physical exam. Risks alternatives benefits as well as postoperative instructions and narcotic counseling given. Patient daughter here from [place]. Right shoulder marked they understood no further questions or concerns okay to proceed with surgery. MR#: [id number] Acct: [id number] Name: AYESHA FOLEY Rep #: [id number] : 1950 Provider: Dr. Nirmal Head MD Age/Sex: 73/F Location: [facility] [place] Status: Signed Intake Vital Signs 12/11/2410:28 Height 5 ft 1.5 in Intake Visit Reasons: RIGHT SHOULDER Chief Complaint: Right Shoulder Follow-Up Is patient in pain?: Yes (right shoulder) Pain scale (1-10): 5 Allergies pseudoephedrine Allergy (Verified 02/13/24 10:44) Rapid Heart rate Medications ?Medication ?Instructions ?Recorded ?Confirmed ?Type levothyroxine 50 mcg tablet 50 mcg PO DAILY 10/03/13 02/13/24 History vitamins B1 B6 B12 tablet 1 tab PO DAILY 10/20/20 02/13/24 History Prolia 60 mg/mL subcutaneous 60 mg subcut [id number] #1 mL 09/17/21 02/13/24 Rx syringe (denosumab) cholecalciferol (vitamin D3) 25 4,000 unit PO DAILY 04/03/22 02/13/24 History mcg (1,000 unit) tablet ipratropium bromide 42 mcg (0.06 2 spray intranasal .q8 04/03/22 02/13/24 History %) nasal spray omeprazole 40 mg capsule,delayed 40 mg PO DAILY 04/03/22 02/13/24 History release gabapentin 100 mg capsule 200 mg PO QHS 04/23/23 02/13/24 History ropinirole 1 mg tablet 1 mg PO QHS #30 tabs 09/01/23 02/13/24 Rx celecoxib 200 mg capsule 200 mg PO DAILY 09/15/23 02/13/24 History terbinafine HCl 250 mg tablet 250 mg PO DAILY 09/15/23 02/13/24 History citalopram 10 mg tablet 10 mg PO QDAY 02/13/24 02/13/24 History Have you fallen in the past year?: No PFSH Medical History Arthrosis of right acromioclavicular joint Right rotator cuff tear Impingement of right shoulder Right shoulder pain Laceration of right ring finger Osteoporosis Brain tumor Pericardial effusion Hypothyroidism GERD (gastroesophageal reflux disease) RLS (restless legs syndrome) Malignant neoplasm of colon Malignant neoplasm of kidney DDD (degenerative disc disease) Hyperlipidemia Premature ventricular contraction Premature atrial contractions Surgical History Hx of basal cell carcinoma excision History of eyelid surgery History of cochlear implant History of vein stripping History of shoulder surgery History of tubal ligation History of hysterectomy History of tonsillectomy Family History Father CAD (coronary artery disease) Hx of CABGMother History of permanent cardiac pacemaker placement Social History Smoking Status: Never smoker alcohol intake: current details: occasional HPI RIGHT SHOULDER Details: This documentation accurately reflects the service provided and the decisions made by me, Dr. Nirmal Head MD 02/13/24 1013. Part of today?s visit was documented by [ ], acting as scribe. AYESHA FOLEY is a 73 year old F here today for follow-up right shoulder pain and rotator cuff tear. Coding Level of Care Code Off vis,est,level 3 Diagnoses Arthrosis of right acromioclavicular joint M19.011 Right rotator cuff tear M75.101 Impingement of right shoulder M25.811 Right shoulder pain M25.511 Assessment and Plan Assessment and Plan (1) Arthrosis of right acromioclavicular joint: Status: Acute Plan: 73 F with R shoulder MRI evidence of linear interstitial/delaminating tear of the conjoined distal supraspinatus/infraspinatus tendon junction, measuring 1.7 cm in length. Also has mild hypertrophic acromioclavicular arthrosis (neg cross body and no pain at ACJ so will not do DCE), and mild subacromial-subdeltoid bursitis. Patient counseled on the diagnosis prognosis different treatment options available including but not limited to rest ice anti-inflammatories activity modifications doing nothing repeat cortisone injection as well as surgery including right shoulder arthroscopy subacromial decompression rotator cuff repair. Patient wishes to go ahead with surgery signed the consent form today no further questions or concerns. Pros and cons risks and benefits were discussed with the patient including but not limited to infection, pain, stiffness, bleeding, damage to surrounding structures, neurovascular injury, recurrence or retear, failure or wear of hardware or fixation, instability, fracture, deep vein thrombosis and pulmonary embolism, anesthetic risks, , patient dissatisfaction, need for further surgery and other risks. Patient understood and wished to proceed with surgery, and signed the informed consent documentation. (2) Right rotator cuff tear: Status: Acute (3) Impingement of right shoulder: Status: Acute (4) Right shoulder pain: Status: Acute Clinical Quality Measures Falls Risk Screening/Assistive Devices Have you fallen in the past year?: No Ortho Exam General General: Yes no acute distress Neurologic: Yes alert and Yes oriented x3 Psychologic: Yes reasonable and appropriate [facility] Medical History Wears hearing aid Wears glasses Post-menopausal Cancer History of steroid therapy Thyroid disease Arthritis Back pain Former smoker Leg cramps History of echocardiogram History of stress test Cardiology follow-up encounter History of irregular heartbeat Arthrosis of right acromioclavicular joint Right rotator cuff tear Impingement of right shoulder Right shoulder pain Laceration of right ring finger Osteoporosis Brain tumor Pericardial effusion Hypothyroidism GERD (gastroesophageal reflux disease) RLS (restless legs syndrome) Malignant neoplasm of colon Malignant neoplasm of kidney DDD (degenerative disc disease) Hyperlipidemia Premature ventricular contraction Premature atrial contractions Home Medications ?Medication ?Instructions ?Recorded ?Last Taken ?Type levothyroxine 50 mcg tablet 50 mcg PO DAILY 10/03/13 0 03/31/24 History Prolia 60 mg/mL subcutaneous 60 mg subcut [id number] #1 mL 09/17/21 Unknown Rx syringe (denosumab) cholecalciferol (vitamin D3) 25 4,000 unit PO DAILY 03/30/24 History mcg (1,000 unit) tablet ipratropium bromide 42 mcg (0.06 2 spray intranasal SC N 04/03/22 Unknown History %) nasal spray gabapentin 100 mg capsule 200 mg PO QHS 04/23/2303/30 History ropinirole 1 mg tablet 1 mg PO QHS #30 tabs 07/15/2 4 03/30/24 Rx calcium 500 mg tablet 500 mg PO DAILY 03/17/2401/11 History magnesium glycinate 100 mg (as 200 mg PO BID 03/17/24 03/30/24 History glycinate) tablet (Mag Glycinate) ibejgutvlvix-trzo-nakupfot-folic 1 tab PO DAILY 03/30/24 History acid 400 mcg-biotin 100 mcg tablet omega 3 350 mg-dha 235 mg-epa 90 1 cap PO DAILY Unknown History mg-fish oil 597 mg capsule,delay rel ([place]-3) turmeric 450 mg-turmeric root 1 cap PO DAILY 03/17/24 Unknown History extract 50 mg capsule vitamin B complex 1 tab PO DAILY 03/17/2403/20 History Allergy/AdvReac Type Severity Reaction Status Date / Time pseudoephedrine Allergy Rapid Verified 03/31/24 10:14 Heart rate Family History Father CAD (coronary artery disease) Hx of CABG Mother History of permanent cardiac pacemaker placement Surgical History History of laparoscopic cholecystectomy Hx of basal cell carcinoma excision History of eyelid surgery History of cochlear implant History of vein stripping History of shoulder surgery History of tubal ligation History of hysterectomy History of tonsillectomy Social History Smoking Status: Former smoker alcohol intake: current details: occasional Vital Signs Vital Signs Vital Signs: 03/31/24 10:16 03/31/24 10:16 Temperature 98.4 F Temperature Source Temporal Pulse Rate 75 Respiratory Rate 16 Respiratory Pattern Normal Blood Pressure 116/50 L Blood Pressure Mean 72 Blood Pressure Source Monitor Blood Pressure Position Semi-Fowlers Blood Pressure Location Left Arm Pulse Ox 100 Oxygen Delivery Method Room Air Weight Weight: 119 lb 0.794 oz Body Mass Index (BMI) 22.1 Results Lab / Micro Data 03/19/24 08:26 03/19/24 08:26
[2024-03-31] MEDS: Cefazolin 2 GM in Syringe IV (14:00)
[2024-03-31] MEDS: Epinephrine (1 mg/ml) 1 MG/ML VIAL ×2 (14:23→14:24)
--- NOTE | 2024-03-31 14:56 | PCM.OPRPT ---
Problems Associated Problem List Diagnoses (1) Right rotator cuff tear: (2) Impingement of right shoulder: Procedures Musculoskeletal 20xxx-29xxx: Other Procedure See Report Operative Report (Standard) Operative Information Date of Procedure: 03/31/24 Pre-Operative Diagnosis: Right shoulder impingement syndrome and rotator cuff tear Post-Operative Diagnosis: Same Surgery/Procedure Performed: Right shoulder arthroscopy, subacromial decompression, rotator cuff repair reimbursement representative: Yes Mine Geologist: car Tasks completed by assistant professor of physics: Retracting Additional health care assistant?: No Type of Anesthesia: Block,Regional and General RN Documented Start/Stop Times: Operation Date: 03/31/24 11:40 Case Time Into Pre-Op 03/31/24 09:55 Anesthesia Start 03/31/24 13:46 Into Room 03/31/24 13:46 Procedure Start 03/31/24 14:14 Procedure End 03/31/24 14:48 Procedure Start Time: 14:14 Procedure Stop Time: 14:48 Select all DRAINS/GRAFTS/IMPLANTS that apply: Implanted device Implanted device details: arthrex knotless fiber tack anchors and 4.75mm swivelock Estimated Blood Loss: 20 Specimen collected: No Description of surgery: Patient was brought to the operating room theater. They were administered 2 g of IV Ancef prior to the start of the procedure. Placed supine on the operating room table. General anesthesia induced. Patient placed right side up lateral decubitus with the aid of the beanbag positioner. Axillary roll was used all bony prominences padded. SCDs on the legs. Operative extremity prepped and draped in the usual sterile fashion with chlorhexidine-based prep solution allowing over 3 minutes drying time prior to draping. 10 pounds of inline traction with the arm in 30 degrees of abduction was used. Preoperative timeout performed to confirm the site patient and the surgery. I began by inserting the arthroscope into the intra-articular portion of the shoulder through a standard arthroscopic posterior portal. Cartilage on the glenoid and humeral head was very good, normal, slight fraying of the labrum. Axillary recess was normal. Biceps frayed but intact, no synovisit, so left alone. I made an inside-out anterior portal through the rotator interval using spinal needle localization. Undersurface junction between SS and IS suspicious for the delaminated portion, so I marked that with spinal needle. Next I placed the arthroscope into the subacromial space. Identified the previously marked area there was indeed delaminated tear between the supraspinatus and infraspinatus. Identified the tearing area. I used a spinal needle and a probe to try and identify this. I decided on a trance tendon approach to repair the tendon. I used the Arthrex trans tendon fiber tack knotless all suture anchors. I placed 1 anteriorly and 1 posteriorly to the tear just off the articular margin medial to the tear. I set the anchors. I used the repair suture from each anchor to pass to the other anchor and then converted the sutures and using the knotless mechanism created a [id number] repair with 2 sutures. I then took these 2 sutures out laterally and placed him into a 4.75 mm Arthrex bio composite swivel lock anchor and attach this firmly all suture anchors got very good purchase and I cut the suture short. This was a triangular configuration at the tear site. Very solid repair and good bone. Subcutaneous tissue closed with 3-0 Monocryl. Steri-Strips were applied after the skin was cleaned and dried. Adaptic gauze abdominal pad dressings and tape was then applied with a sling to the upper extremity. Patient woken up from general anesthetic transferred off the operating room table and taken to postanesthetic care unit in stable condition. All sponge needle instrument counts were correct no complications. Plan for the patient to be discharged home according to day surgery criteria when they are comfortable. Appropriate narcotic counseling given and follow-up in the office in 2 days time. Range of motion will be pendulum exercises as well as hand wrist and elbow exercises 4 times a day. cpt 66760, [address] Surgical Findings: As above. Complications Complications: No Admit VTE Documentation VTE Present on Admission: No VTE Mechan Device Prophylaxis: SCD's VTE Pharm Prophylaxis ordered?: No Reason prophylaxis not ordered: Treatment Not Indicated
--- NOTE | 2024-03-31 15:03 | EX.PCM.DISCH ---
Discharge Instructions Diet Discharge Diet: No restrictions Activity Ice area for (Minutes): 10 Lifting Restrictions: no lifting over 1 pound Additional Activity Instructions:: ok for pendulums 4x/day, hand wrist and elbow rom Dressing / Incision Call your doctor if your incision/area has: Continuous Slow Oozing, Sudden Increased Bleeding, Increased Pain/ Swelling, Increased Redness, Foul Smelling Discharge and Swelling at the incision site Call your doctor if you observe: Fever of 101 or Higher, Coldness, Increased Pain and Numbness or Tingling Change Dressing in: leave in place till F/U Cleanse incision/area with: Do not get Incision Wet Follow Up Care Please Follow Up With: Nirmal Head MD When: within 2 weeks Test Results: Test results from this visit will be discussed in further detail at your follow-up appointment, if applicable. Discharge Plan Admission Attending Provider: Nirmal Head Primary Care Provider: Bulmaro Douglas Consulting Providers: Catarino Connell Instructions Print Language: Filipino Discharge Orders/Prescriptions Prescriptions: New oxycodone-acetaminophen [Endocet] 5-325 mg tablet 1 tab PO Q6H MDD 6 PRN (Reason: pain) 5 Days Qty: 20 0RF No Action cholecalciferol (vitamin D3) 25 mcg (1,000 unit) tablet 4,000 unit PO DAILY ipratropium bromide 42 mcg (0.06 %) spray,non-aerosol 2 spray intranasal PRN Rx Instructions: administer into each nostril ropinirole 1 mg tablet 1 mg PO QHS Qty: 30 6RF gabapentin 100 mg capsule 200 mg PO QHS levothyroxine 50 MCG tablet 50 mcg PO DAILY Patient Comments: thyroid vitamin B complex Tablet 1 tab PO DAILY mv,iron,min-folic acid-biotin 400-100 mcg tablet 1 tab PO DAILY [place]-3 350 mg-235 mg- 90 mg-597 mg capsule,delayed release(DR/EC) 1 cap PO DAILY calcium 500 mg tablet 500 mg PO DAILY Mag Glycinate 100 mg tablet 200 mg PO BID turmeric-turmeric root extract 450-50 mg capsule 1 cap PO DAILY Prolia 60 mg/mL syringe 60 mg SC [id number] Qty: 1 1RF Referrals / Follow Up: Bulmaro Douglas MD [Primary Care Provider] - Nirmal Head MD [Med Staff - Active Staff] - Disposition Disposition (needs filled in before D/C Order can be placed): Home, Self Care
--- NOTE | 2024-03-31 15:08 | PCM.POST.ANE ---
Anesthesia: Postop Eval I Current Vital Signs Temperature: 97.6 F Pulse Rate: 83 Blood Pressure: 147/83 Respiratory Rate: 14 Pulse Ox: 98 Oxygen Delivery Method: Nasal Cannula Oxygen Flow Rate (L/min): 3 Assessment Airway patent: Yes Spontaneous unlabored respirations: Yes Mental status: Awake and Calm nausea: No Vomiting: No Anesthesia Complication: No Fluid Hydration Crystalloid volume administer (ml): 1,000 Total IV fluid infused: 1,000 Progress Note Anesthesia document: Postop Eval 1 completed: Yes
--- NOTE | 2024-03-31 15:57 | POSTOPAN2_ITS ---
Anesthesia Postop Eval I Sum Postop Eval Completion status Anesthesia document: Postop Eval 1 completed: Yes Anesthesia Postop Eval I Summary Anesthesia Postop Eval I Summary: Anesthesia Postop Eval I: Assessment Summary Airway patent Yes 03/31/24 15:09 [email or web address] Spontaneous unlabored Yes 03/31/24 15:09 [email or web address] respirations Mental status Awake,Calm 03/31/24 15:09 [email or web address] nausea No 03/31/24 15:09 [email or web address] Vomiting No 03/31/24 15:09 [email or web address] Anesthesia Postop Eval I: Fluid Summary Crystalloid volume administer 1,000 03/31/24 15:09 [email or web address] (ml) Colloids volume administered ( ml) Blood Product volume administered (ml) Total IV fluid infused 1,000 03/31/24 15:09 [email or web address] Anesthesia Postop Eval I: Summary Notes Anesthesia Complication No 03/31/24 15:09 [employer]EL[email or web address] Anesthesia Complication Comment: Post-operative progress note Anesthesia: Postop Eval II Evaluation Mental status: Awake Pain Level: 0 nausea: No Vomiting: No
--- NOTE | 2024-03-31 15:57 | PCM.POSTANE2 ---
Anesthesia Postop Eval I Sum Postop Eval Completion status Anesthesia document: Postop Eval 1 completed: Yes Anesthesia Postop Eval I Summary Anesthesia Postop Eval I Summary: Anesthesia Postop Eval I: Assessment Summary Airway patent Yes 03/31/24 15:09 [email or web address] Spontaneous unlabored Yes 03/31/24 15:09 [email or web address] respirations Mental status Awake,Calm 03/31/24 15:09 [email or web address] nausea No 03/31/24 15:09 [email or web address] Vomiting No 03/31/24 15:09 [email or web address] Anesthesia Postop Eval I: Fluid Summary Crystalloid volume administer 1,000 03/31/24 15:09 [email or web address] (ml) Colloids volume administered ( ml) Blood Product volume administered (ml) Total IV fluid infused 1,000 03/31/24 15:09 [email or web address] Anesthesia Postop Eval I: Summary Notes Anesthesia Complication No 03/31/24 15:09 [email or web address] Anesthesia Complication Comment: Post-operative progress note Anesthesia: Postop Eval II Evaluation Mental status: Awake Pain Level: 0 nausea: No Vomiting: No
== END 2024-03-31 17:08 | disposition home or self-care (01) ==
LOC: SDC 09:46 → AC 09:47
PROVIDERS: Anesthesiology; PCP Family Medicine; Referring Provider Orthopaedic Surgery Sports Medicine; Visit Provider Orthopaedic Surgery Sports Medicine
PROC: (CPT 29805; principal; 2024-03-31 11:25)
DX: M75.101 Unspecified rotator cuff tear or rupture of right shoulder, not specified as traumatic (principal); M19.011 Primary osteoarthritis, right shoulder; M75.41 Impingement syndrome of right shoulder; E03.9 Hypothyroidism, unspecified; Z79.890 Hormone replacement therapy; Z79.899 Other long term (current) drug therapy; Z87.891 Personal history of nicotine dependence
CPT/HCPCS: 29827; 29826; 01630; 64415; 36415; 80048; 84443; 85025; 93005; J2405

== ENCOUNTER 2024-06-11 14:00 | Outpatient (RCR) | payer MEDICARE, BC, SELFPAY ==
--- NOTE | 2024-04-12 18:09 | HP.PTEVAL_ITS ---
Patient's Visit Information Visit Information Visit Information: AYESHA FOLEY is a 73 year old F referred to Physical Therapy by Dr. Nirmal Head MD with a diagnosis of R RTC repair, DOS: 03/31/24. Date of Evaluation: 04/12/24 Physical Therapist: Kg Lockett DPT Visit Plan Frequency: 2-3x /Week Plan: 1) PROM of R shoulder progressing ER and flexion, scaption 2) ice as needed for pain control. Ok to add in elbow ROM and active strengthening. Subjective Subjective: Pt. is here today for her initial evaluation with diagnosis for R RTC repair and subacromial decompression. DOS: 03/31/24. pt. returns back to physician tomorrow. Pt. reports doing pendulums at home and some icing. Pt. is having some trouble with sleeping, but reports this is due to not getting com fortable. Pt. denies N/T in either UE. Pt. reports no fever or double vision. Pt. is hopeful to get back to all recreational activities without limitations. pt is no longer taking any pain medications. Pain R shoulder: Pain Intensity (Out of 10): 2 Pain Intensity Range: 0 and 6 Objective Objective: POSTURE: Pt. has decent shoulder positioning. Slight guarded posture of R shoulder. Pt. is able to complete shoulder shrugs without issues. PALPATION: Pt. has large bandage on her R shoulder. Pt. has no signs of infection. Pt. has tenderness at lateral shoulder. NEURO: normal sensation, normal DTR. ROM: R shoulder: PROM: ER 30deg, flexion 90deg, abd 75deg. extension not measured. Normal elbow flexion and extension. MMT: DNT due to recent surgery. Balance/Special Test Scores Quick DASH Score: 61.3625 Goals Goal 1:: LTG: Pt. to be I with HEP. Goal Time Frame: 4-6 Weeks Goal 2:: STG: Pt. to be able to sleep throughout the night. Goal Time Frame: 2 Weeks Goal 3:: LTG: Pt. to have full AROM of R shoulder without increase in R shoulder pain Goal Time Frame: 6-8 Weeks Goal 4:: LTG: Pt. to have increased R shoulder strength symmetrical to L side. Goal Time Frame: 8-12 Weeks Goal 5:: LTG: Pt. to complete all ADLs without increase in R shoulder pain. Goal Time Frame: 4-6 Weeks Rehabilitation Potential Physical Therapy Diagnosis: Pt. has signs and symptoms consistent with R RTC repair. Pt. has marked hypomobility, weakness and difficulty with all ADLs. Pt. would benefit from PT to address the above limitations progressing back to all recreational and work activities issues. Rehabilitation Potential: Excellent Anticipated Interventions Patient/Client Instruction: Educate patient on: Condition, Plan of Care, Risk Factors and Benefits of Fitness Program For the Purpose of:: To improve decision making, To facilitate caregiver knowledge, To improve self management, To prevent re-injury, To improve ability to perform tasks related to life management and To improve tolerance to ADL's Therapeutic Exercise to Include: Strength training, Power training, Endurance training, Postural training, Flexibilty training, Passive ROM, Active ROM and S capular Strength/Stabilization For the Purpose of:: To decrease pain, To increase ROM, To improve nutrient delivery to tissue, To increase oxygenation perfusion, To improve muscle performance and motor function, To improve ability to perform ADL's, To increase flexibility/ROM and To improve endurance Manual Therapy Techniques to Include: Passive ROM and Soft tissue mobilization For the Purpose of:: To decrease pain, To increase ROM, To improve nutrient delivery to tissue, To increase oxygenation perfusion and To improve muscle performance and motor function IF ES: Yes Cryotherapy (ice pack, ice massage): Yes For the Purpose of:: To decrease pain, To decrease swelling/inflammation, To increase ROM, To improve nutrient delivery to tissue and To increase oxygenation perfusion Text: Thank you for the opportunity to evaluate your patient. For Medicare and Medicare HMO plans, please review the plan of care and approve it. It will need to be FAXED BACK to us at [phone] for Medicare purposes. For Medicare only, by signing this I certify the plan of care. Please let me know if there are questions or concerns regarding this plan of care. Physician Signature: Date:
== END 2024-06-11 19:00 | disposition home or self-care (01) ==
LOC: PT 14:00
PROVIDERS: PCP Family Medicine; Referring Provider Orthopaedic Surgery Sports Medicine; Visit Provider Orthopaedic Surgery Sports Medicine
DX: M75.01 Adhesive capsulitis of right shoulder (principal); M19.011 Primary osteoarthritis, right shoulder; M75.101 Unspecified rotator cuff tear or rupture of right shoulder, not specified as traumatic; M25.811 Other specified joint disorders, right shoulder
CPT/HCPCS: 97110; 97140; 97161; 97530

== ENCOUNTER → 2024-08-05 | Outpatient (CLI) | payer MEDICARE, BC, SELFPAY ==
--- NOTE | 2024-08-05 07:46 | MRI_ITS ---
PROCEDURE: UPPER EXT JOINT ONLY(ROUTINE) 08/05/2024 REASON FOR EXAM: PAIN, CUFF TEAR? TECHNIQUE: UPPER EXT JOINT ONLY(ROUTINE) Multiplanar and multisequence images were obtained without IV contrast administration. COMPARISON: COMPARISON : CR report dated 06-25-2024 FINDINGS: There is widening of the AC joint space with no obvious related marrow edema. Diagnostic possibilities include sequel of old/chronic distal clavicular resorption versus dissociation to the AC joint Thickening and intrasubstance high PD FS WI signal of the supraspinatus tendon reaching its articular surface with no complete partial fibers interruption. Intrasubstance high signal of the subscapularis tendon with no evidence of complete fibers interruption. The teres minor and infraspinatus tendon appears intact. Intact long head of biceps tendon. Fluid signal distending its sheath. No obvious glenoid labral tears. Marginal lipping of the glenohumeral articular surface. Moderate glenohumeral joint effusion Fluid signal distending the subcoracoid and subacromial/subdeltoid bursa. Focal cortical irregularities and subcortical pseudocysts of the humeral head/greater tuberosity. No marrow infiltrative lesions. The neurovascular bundles appear unremarkable. MRI/Upper Ext Joint Only(Routine) IMPRESSION: Widening of the AC joint space. Supraspinatus tendonitis with partial thickness tear. Subscapularis tendonitis. Glenohumeral degenerative arthropathy with moderate joint effusion & subcoracoi d and subacromial/subdeltoid bursitis. Reading [facility] [id number]
--- OUTSIDE RECORDS SUMMARY | 2024-08-05 07:50 | XMS RPT_ITS | CCD ---
Author Organization [facility] Care Team Providers Care Moth Proofer Name Role Phone Anil Pa Unavailable Unavailable Zakiya Wise RN Unavailable Unavailable Anil Pa Unavailable Unavailable Haseeb, Ashley Joanne Unavailable Unavailab le Haseeb, Ashley Joanne Unavailable Unavailab le RanneyTerellopher Unavailable Unavailable Haseeb, Ashley Joanne Unavailable Unavailab le Omar, Reema M Unavailable Unavailable Terell Douglasopher Unavailable Unavailable Haseeb, Ashley Joanne Unavailable Unavailab le Omar, Reema M Unavailable Unavailable Talamantes, Demarco Laura Unavailable Unavailable Terell Douglasopher Unavailable Unavailable Haseeb, Ashley Joanne Unavailable Unavailab le Talamantes, Demarco Laura Unavailable Unavailable DeFinis, Harumi Y Unavailable Unavailable Dr. Hawk Douglas Primary Care Provider [phone] Dr. Hawk Douglas Referring Provider Dr. Mac Bynum Attending Provider Malvin Douglas MD Primary Care Provider Dr. Hwak Douglas Primary Care Provider [phone] Dr. Hawk Douglas Referring Provider Dr. Mac Bynum Attending Provider [phone] Dr. Hawk Douglas Primary Care Provider [phone] Dr. Hawk Douglas Referring Provider Dr. Kwaku Peterson Attending Provider [phone] Dr. Hawk Douglas Primary Care Provider Dr. Hawk Douglas Referring Provider Dr. Kwaku Peterson Attending Provider [phone] Panfilo Lyon Attending Provider [phone] Kwaku Peterson Referring Provider Dr. Kwaku Peterson Other Provider Dr. Malvin Swan Other Provider Dr. Ping Rodriguse Attending Provider Dr. Ping Rodrigues Attending Provider Stella CAIN, Malvin Yousif Primary Care Provider Dr. Hawk Douglas Primary Care Provider Dr. Hawk Douglsa Referring Provider Dr. Kwaku Peterson Attending Provider [phone] MAL[facility]IN DOUGLAS [facility] Hawk Douglas Primary Care Provider Dr. Hawk Douglas Primary Care Provider Dr. Hawk Douglas Primary Care Provider Dr. Hawk Douglas Referring Provider Dr. Kwaku Peterson Attending Provider [phone] Hawk Douglas Primary Care Provider Dr. Hawk Douglas Referring Provider MIKAELA Rodríguez Attending Provider Dr. Kwaku Peterson Attending Provider Dr. Panfilo Lyon Attending Provider [phone] Malvin Douglas Primary Care Provider [phone] Dr. Malvin Douglas Referring Provider MIKAELA Rodríguez Attending Provider Dr. Kwaku Peterson Attending Provider [phone] Panfilo Lyon Attending Provider [phone] Rafael SPRAY MACHINE LOADER, SPRAY MACHINE LOADERJoseC Tamica Attending Provider SRINI DALEY Attending Unavailable [place], [facility] Primary Care Unavailabl e PATIENCE OSMAN Referring Unavailable [place], [facility] Primary Care Unavailabl e SELF, SELF Referring Unavailable CARYN JARVIS JR. Attending Unavaila ble CARYN JARVIS JR. Attending Unavaila ble [facility], [facility] Primary Care Unavailabl e SELF, SELF Referring Unavailable Stella CAIN [facility] Primary Care Provider DEMARCO VOGEL Attending Unavailable [facility] Unavailabl e DEMARCO VOGEL Attending Unavailable [place], [facility] Primary Care Unavailabl e ROBYN HORVATH Attending Unavailable MAREN HERRMANN Referring Unavailable [place], [facility] Primary Care Unavailabl ROBYN Rich Referring Unavailable MAREN HERRMANN Attending Unavailable RAJNIBOSTON, [facility] Primary Care Unavailabl e Kwaku Peterson Referring [facility]available [facility]available Kwaku Peterson Attending Unavailable Caryn Jarvis Jr. Referring Unavaila ble Caryn Jarvis Jr. Attending Unavaila ble [place], [place]ertner Primary Care Unavailable Nirmal Head Attending Unavailable [facility] Primary Care Unavailable Stella, Malvin Referring Unavailable Nirmal Head Referring Unavailable Nirmal Head Attending [facility] Unavailable RajnifultonMalvin Attending Unavailable [facility] Primary Care Unavailable Stella, Malvin Referring Unavailable Nirmal Head Attending Unavailable Nirmal Head Referring Unavailable [place], [place] Primary Care Unavailable Nirmal Head Attending Unavailable Nirmal Head Referring Unavailable Kanchercolette, Catarino Consulting Unavailable [place], [place] Primary Care [facility]available RajnifultonMalvin Attending Unavailable Panfilo Lyon Attending Unavailable [place], [place] Primary Care Un[facility] Referring Unavailable Nirmal Head Attending Unavailable [place] Unavailable Kwaku Peterson Attending Unavailable [facility] Unavailable Stella, Lukeer Referring Unavailable Nirmal Head Attending Unavailable Sonido Nirmal Referring Unavailable [place], Christopher Primary Care Unavailable [facility] Unavailable [facility] Referring Unavailable [facility] Attending Unavailable Cathleen SPRAY MACHINE LOADER, Tameka E Attending UnavailMikey Rodriguez Referring Unavailable [facility] Unavailable Cathleen SPRAY MACHINE LOADER, Tameka E Attending UnavailMikey Rodriguez Referring Unavailable [facility] Care Unavailable Nirmal Head Attending Unavailable Nirmal Head Referring Unavailable [facility] Care Unavailable Konrad Duratn Referring Unavailable [facility] Care Unavailable Konrad Durant Attending Unavailable Nirmal Head Attending Unavailable [facility] Unavailable [facility] Referring Unavailable Panfilo Lyon Attending Unavailable [facility] Unavailable [facility] Unavailable Mikey Toribio Attending Unavailable [facility] Referring Unavailable Nirmal Head Attending Unavailable [facility] Unavailable [facility] Referring Unavailable [facility] Referring Unavailable Nirmal Head Attending Unavailable [facility] Unavailable [facility] Unavailable [facility] Referring Unavailable [facility] Attending Unavailable Nirmal Head Attending Unavailable [facility] Referring Unavailable [facility] Unavailable Nirmal Head Attending Unavailable [facility] Unavailable [facility] Referring Unavailable Nirmal Head Attending Unavailable [facility] Unavailable [facility] Referring Unavailable Nirmal Head Attending Unavailable [facility] Unavailable [facility] Referring Unavailable Cathleen SPRAY MACHINE LOADER, Tameka E Attending Unavailabl e Cathleen SPRAY MACHINE LOADER, Tameka E Consulting UnavailMikey Rodriguez Referring Unavailable [facility] Care Unavailable Nirmal Head Attending Unavailable Nirmal Head Referring Unavailable Catarino Connell Consulting Unavailable [facility] Unavailable Nirmal Head Consulting Unavailable Cathleen SPRAY MACHINE LOADER, Tameka E Referring Unavailabl e Cathleen SPRAY MACHINE LOADER, Tameka E Attending Unavailabl e Cathleen SPRAY MACHINE LOADER, Tameka E Consulting Unavailabl e [facility] Cathleen SPRAY MACHINE LOADER, Tameka E Referring Unavailabl e Cathleen SPRAY MACHINE LOADER, Tameka Mondragon Attending Unavailgeovanni Connolly SPRAY MACHINE LOADER, Tameka Mondragon Consulting Unavailgeovanni [facility] Unavailable Aramis Rivera Attending Unavailable [facility] Unavailable [facility] Referring Unavailable [facility] Unavailable Aramis Rivera Attending Unavailable [facility] Referring Unavailable Cathleen SPRAY MACHINE LOADER, Tameka Mondragon Attending UnavailMikey Rodriguez Referring Unavailable Cathleen SPRAY MACHINE LOADER, Tameka Mondragon Consulting Unavailabl [facility] Unavailable Nirmal Head Referring Unavailable Panfilo Lyon Attending Unavailable [facility] Unavailable [facility] Unavailable [facility] Referring [facility] Unavailable Allergies Allergy Classification Reported Allergen(s) Allergy Type Date of Onset Reaction(s) Facility (4 sources) meperidine drug allergy 1 Nausea [facility] Work Phone: (18 sources) Meperidine Drug Allergy 1 Nausea [facility] (8 sources) Alendronate; Translations: [ALENDRONATE SODIUM] Drug Allergy 6 Intolerance [facility] (8 sources) cyclobenzaprine; Translations: [CYCLOBENZAPRINE HCL] Drug Allergy 6 Intolerance [facility] (8 sources) raNITIdine; Translations: [RANITIDINE HCL] Drug Allergy 6 Intolerance [facility] (5 sources) guaiFENesin / Pseudoephedrine Drug Allergy 3 Palpitations [facility] (1 source) Meperidine Drug Allergy 4 [facility] Repository (1 source) Pseudoephedrine Drug Allergy 5 [facility] Repository Medications Current Medications Medication Drug Class(es) Dates Sig (Normalized) Sig (Original) calcium carbonate 1250 mg oral tablet (10 sources) Start: 08-14-2022 End: 10-13-2023 take 1 tablet by mouth once daily oyster shell calcium 1250 (500 Ca) MG tablet take 1 tablet by mouth once daily 360 tablet 09/21/2023 Active celecoxib 200 mg oral capsule (8 sources) Nonsteroidal Anti-inflammatory Drug take 1 capsule by mouth once daily celecoxib (CELEBREX) 200 mg capsule Take 200 mg by mouth once daily. Active Cetirizine (7 sources) Histamine-1 Receptor Antagonist cetirizine HCl (ZYRTEC ORAL) Take by mouth once daily as needed. Active cetirizine HCl ( ZYRTEC ORAL) Take by mouth once daily as needed. 0 Active cetirizine HCl ( ZYRTEC ORAL) Take by mouth. 0 Active Comment on above: Take by mouth. Take by mouth once d aily as needed. cholecalciferol 0.025 mg oral tablet (20 sources) Vitamin D Start: take 4000 [IU] by mouth once daily Cholecalciferol (Vitamin D3) Active 4000 UNIT PO DAILY April 03, 2022 9:52am Start: 11-05-2021 End: 04-03-2022 take 4000 [IU] by mouth every other day Cholecalciferol (Vitamin D3) Discontinued 4000 UNIT PO .every other day November 05, 2021 9:43am April 03, 2022 9:55am Start: 06-28-2021 End: 11-05-2021 take 125 ug by mouth once daily Cholecalciferol (Vitamin D3) Discontinued 125 MCG PO DAILY June 28, 2021 12:00am November 05, 2021 9:43am Start: 09-01-2017 End: 11-05-2021 take 1000 [IU] by mouth once daily Cholecalciferol (Vitamin D3) Discontinued 1000 UNIT PO daily November 25, 2018 11:31am November 05, 2021 9:45am Start: 08-02-2011 take 1 tablet by abdulkadir th once daily VITAMIN D 2000 UNIT TABS One tablet by mouth daily CHOLECALCIFEROL [id number] Mac Bynum MD Start: 08-02-2011 End: 09-09-2016 take 2 tablets by mouth once daily VITAMIN D 2000 UNIT TABS Two tablets by mouth daily CHOLECALCIFEROL [id number] Mac Bynum MD Start: 01-23-2011 take 1 tablet by abdulkadir th once, then take 3 tablets by mouth once daily VITAMIN D 400 UNIT TABS One tablet by mouth three X daily CHOLECALCIFEROL [id number] Gali Tidwell CHOLECALCIFEROL, VITAMIN D3, (VITAMIN D-3 ORAL) (7 sources) take 2000 [IU] by mouth once daily CHOLECALCIFEROL, VITAMIN D3, (VITAMIN D-3 ORAL) Take 2,000 Units by mouth once daily. Active CHOLECALCIFEROL, VITAMIN D3, (VITAMIN D-3 ORAL) Take by mouth once daily. 0 Active Comment on above: Take by mouth once d aily. citalopram 10 mg oral tablet (3 sources) Serotonin Reuptake Inhibitor Start: 02-12-2024 take 1 tablet by mouth once citalopram hydrobromide (CELEXA) 10 mg tablet Take 1 tablet by mouth every afternoon. 02/12/2024 Active 1 ml denosumab 60 mg/ml prefilled syringe (20 sources) RANK Ligand Inhibitor Start: 11-27-2018 End: 09-17-2021 Denosumab (Prolia) 60 mg/mL syringe Active 60 MG SC every 6 months September 17, 2021 3:15pm denosumab (PROLI A SUBCUTANEOUS) Inject 60 mg/mL subcutaneously once every 6 months. Active denosumab (Proli a) 60 MG/ML Solution Prefilled Syringe injection Inject 1 mL under the skin. Active denosumab (PROLI A SUBCUTANEOUS) Inject subcutaneously once every 6 months. 0 Active Comment on above: Inject subcutaneousl y once every 6 months. DIGESTIVE ENZYMES PO (3 sources) DIGESTIVE ENZYME S PO Take by mouth. Active fluticasone propionate 0.05 mg/actuat metered dose nasal spray (12 sources) Corticosteroid fluticasone (BESS NASE) 50 mcg/actuation nasal spray Use 1 [place] in each nostril as needed. Active End: 10-13-2023 fluticasone 50 MCG/ACT Suspe nsion nasal spray 1 spray by Does Not Apply route. 10/13/2023 Discontinued (Medication Reconciliation (suppress cancel msg)) Comment on above: Use 1 [place] in each nostril as needed. Folinic-Plus 4-50-2 MG tablet (2 sources) Start: 09-02-2023 take 1 tablet by mouth once daily Folinic-Plus 4-50-2 MG tablet Take 1 tablet by mouth daily. 09/02/2023 Active gabapentin 100 mg oral capsule (20 sources) Anti-epileptic Agent Start: 04-23-2023 take 200 mg by mouth at bedtime Gabapentin Active 200 MG PO AT BEDTIME April 23, 2023 1:00am Start: 11-25-2018 End: 10-20-2020 take 200 mg by mouth once daily Gabapentin Discontinue d 200 MG PO DAILY November 25, 2018 12:00am October 20, 2020 8:43am take 1 capsule by mo [facility] every twelve hours as needed gabapentin (NEURONTIN) 100 mg capsule Take 1 capsule by mouth two times a day as needed. Active End: 02-26-2024 take 200 mg by mouth once daily at bedtime gabapentin (NEURONTIN ORAL) Take 200 mg by mouth daily at bedtime. 02/26/2024 Discontinued (Other) take 200 mg by mouth once daily at bedtime gabapentin (NEURONTIN ORAL) Take 200 mg by mouth daily at bedtime. Active ipratropium bromide 0.042 mg/actuat metered dose nasal spray (16 sources) Anticholinergic Start: 04-03-2022 Ipratropium Br omide Active 2 SPRAY INTRANASAL .q8 April 03, 2022 1:00am administer into each nostril End: 11-13-2023 ipratropium bromide (ATROVEN T) 42 mcg (0.06 %) nasal spray Use 2 Sprays in the nose. 11/13/2023 Discontinued (Discontinued by Patient) Ipratropium 0.06 % Solution 2 sprays by Nasal route 3 times daily. Active Magnesium glycinate (3 sources) MAGNESIUM GLYCIN ATE ORAL Take by mouth. Active magnesium oxide 500 mg oral capsule (20 sources) Start: 07-18-2022 take 1 capsule by mouth at bedtime RA Magnesium 500 MG capsule Take 1 capsule by mouth at bedtime. 07/18/2022 Active Start: 04-03-2022 End: 03-04-2023 take 500 mg by mouth at bedtime Magnesium Oxide Discon tinued 500 MG PO AT BEDTIME December 05, 2022 3:20pm March 04, 2023 5:37pm omeprazole 40 mg delayed release oral capsule (20 sources) Proton Pump Inhibitor Start: 04-03-2022 take 40 mg by mouth once daily Omeprazole Active 40 MG PO DAILY April 03, 2022 1:00am Start: 10-03-2013 End: 09-01-2017 take 10 mg by mouth once daily Omeprazole Discontinued 10 MG PO DAILY October 03, 2013 12:00am September 01, 2017 4:14pm Start: 08-12-2012 End: 08-24-2014 take 1 tablet by mouth once daily OMEPRAZOLE 40 MG CPDR One tablet by mouth daily OMEPRAZOLE [id number] Mca Bynum MD polyethylene glycol 3350 791559 mg / potassium chloride 2970 mg / sodium bicarbonate 6740 mg / sodium chloride 5860 mg / sodium sulfate 09690 mg powder for oral solution (1 source) Osmotic Laxative Start: 11-13-2023 End: 11-13-2023 peg 3350-Electrolytes (GOLYTELY) 236-22.74-6.74 -5.86 gram suspension Indications: Screen for colon cancer , Adenomatous polyp of colon, unspecified part of colon Take 4,000 mL by mouth one time only for 1 dose. Refer to printed prep instructions from your provider. 4000 mL 11/13/2023 11/13/2023 Active raspberry extract (3 sources) Non-Standardized Food Allergenic Extract RASPBERRY, RED Tressa tea-has red raspberry leaf- nettle-oat straw Active rOPINIRole 1 mg oral tablet (20 sources) Nonergot Dopamine Agonist Start: 04-03-2022 End: 03-11-2023 take 1 tablet by mouth at bedtime rOPINIRole 1 MG tablet take 1 tablet by mouth at bedtime 1 TO 3 HOURS BEFORE BEDTIME 07/22/2022 Active Start: 11-05-2021 End: 04-03-2022 take 0.75 mg by mouth at bedtime Ropinirole Discontinued 0.75 MG PO AT BEDTIME November 05, 2021 9:44am April 03, 2022 10:28am Start: 10-20-2020 End: 11-05-2021 take 1 tablet by mouth once daily at bedtime, then take 2 tablets by mouth once daily rOPINIRole (REQUIP) 0.5 mg tablet Take 0.5 mg by mouth daily at bedtime. Takes 1 MG by mouth daily 08/27/2021 Active Comment on above: Take 0.5 mg by mouth daily at bedtime. Take 0.5 mg by mouth daily at bedtime. Takes 1 MG by mouth daily terbinafine 250 mg oral tablet (10 sources) Allylamine Antifungal Start: take 1 tablet [...] take 1 tablet by mouth once daily levothyroxine 50 mcg tablet Take 1 tablet by mouth once daily. 0 10/07/2013 Active Comment on above: Take 1 tablet by abdulkadir th once daily. 24 hr tolterodine tartrate 4 mg extended release oral capsule (1 source) Cholinergic Muscarinic Antagonist Start: 03-03-2024 take 1 capsule by mouth once daily tolterodine ER (DETROL LA) 4 mg 24 hr capsule Take 1 capsule by mouth once daily. 30 capsule 4 03/03/2024 Active Turmeric Root Extract (20 sources) Start: 10-20-2020 take 1000 mg by mouth once daily Turmeric Root Extract Active 1000 MG PO DAILY October 20, 2020 8:43am Start: 10-20-2020 End: 04-23-2023 take 1000 mg by mouth once daily Turmeric Root Extract Discontinued 1000 MG PO DAILY October 20, 2020 12:00am April 23, 2023 2:08pm Start: 10-20-2020 take 1000 mg by mout h once daily Turmeric Root Extract Active 1000 MG PO DAILY October 19, 2020 11:00pm Start: 10-20-2020 take 1000 mg by mout h once daily Turmeric Root Extract Active 1000 MG PO DAILY October 20, 2020 12:00am Start: 09-09-2016 TURMERIC CAPS 538mg daily TURMERIC CAPS [id number] Mac Bynum MD TURMERIC ORAL Ta ke by mouth once daily. Active TURMERIC PO Take by mouth 2 times daily. Active TURMERIC ORAL Ta ke by mouth once daily. 0 Active Comment on above: Take by mouth once d aily. VITAMIN B COMPLEX ORAL (6 sources) VITAMIN B COMPLE X ORAL Take by mouth. Active End: 11-13-2023 VITAMIN B COMPLEX ORAL Take by mouth once daily. 11/13/2023 Discontinued (Discontinued by Patient) VITAMIN B COMPLE X ORAL Take by mouth once daily. 0 Active Comment on above: Take by mouth once d aily. Vitamins B1 B6 B12 (18 sources) Start: 10-20-2020 take 1 tablet by mouth once daily Vitamins B1 B6 B12 Active 1 TABLET PO DAILY October 20, 2020 8:44am Start: 10-20-2020 take 1 tablet by abdulkadir th once daily Vitamins B1 B6 B12 Active 1 TABLET PO DAILY October 19, 2020 11:00pm Start: 10-20-2020 take 1 tablet by abdulkadir th once daily Vitamins B1 B6 B12 Active 1 TABLET PO DAILY October 20, 2020 12:00am Completed/Discontinued Medications Medication Drug Class(es) Dates Sig (Normalized) Sig (Original) ACETAMINOPHEN-CODEI NE (6 sources) Opioid Agonist Start: 08-02-2011 End: 09-09-2016 TYLENOL WITH CODEINE #3 300-30 MG TABS As needed ACETAMINOPHEN-CODEIN E [id number] Mac Bynum MD Start: 08-02-2011 TYLENOL WITH C ODEINE #3 300-30 MG TABS As needed ACETAMINOPHEN-CODEINE [id number] Mac Bynum MD Start: 08-02-2011 TYLENOL WITH C ODEINE #3 300-30 MG TABS As needed ACETAMINOPHEN-CODEINE [id number] Mac Bynum MD acetaminophen 325 mg / HYDROcodone bitartrate 5 mg oral tablet (20 sources) Opioid Agonist Start: 10-05-2013 End: 09-01-2017 take 1 tablet by mouth every four hours as needed Hydrocodone-Acetaminophen Discontinued 1 - 2 TABLET PO EVERY 4 HOURS NEEDED October 05, 2013 12:00am September 01, 2017 4:14pm Start: 01-23-2011 take 1 tablet by abdulkadir th at bedtime as needed VICODIN 5-500 MG TABS One tablet by mout h at bedtime. as needed HYDROCODONE-ACETAMINOPHEN [id number] Gali Tidwell Start: 01-23-2011 End: 08-02-2011 take 1 tablet by mouth at bedtime as needed VICODIN 5-500 MG TABS One tablet by mout h at bedtime. as needed HYDROCODONE-ACETAMINOPHEN [id number] Mac Bynum MD Antiarthritic Combination No .2 (Glucosamine-Chondroitin) 900 mg tablet (20 sources) Start: 11-05-2021 End: 04-03-2022 take 1 tablet by mouth once daily Antiarthritic Combination No.2 (Glucosamine-Chondroitin) 900 mg tablet Discontinued 900 MG PO DAILY November 05, 2021 12:00am April 03, 2022 9:51am Start: 11-05-2021 End: 04-03-2022 take 1 tablet by mouth once daily Antiarthritic Combination No.2 (Glucosamine-Chondroitin) 900 mg tablet Discontinued 900 MG PO DAILY November 04, 2021 11:00pm April 03, 2022 8:51am Start: 11-05-2021 take 1 tablet by abdulkadir th once daily Antiarthritic Combination No.2 (Glucosamine-Chondroitin) 900 mg tablet Active 900 MG PO DAILY November 04, 2021 11:00pm Start: 11-05-2021 take 1 tablet by abdulkadir th once daily Antiarthritic Combination No.2 (Glucosamine-Chondroitin) 900 mg tablet Active 900 MG PO DAILY November 05, 2021 12:00am Start: 09-01-2017 End: 11-25-2018 take 1 tablet by mouth once daily Antiarthritic Combination No.2 (Glucosamine-Chondroitin) 900 mg tablet Discontinued 900 MG PO daily September 01, 2017 4:13pm November 25, 2018 11:32am Start: 09-01-2017 End: 11-25-2018 take 1 tablet by mouth once daily Antiarthritic Combination No.2 (Glucosamine-Chondroitin) 900 mg tablet Discontinued 900 MG PO daily August 31, 2017 11:00pm November 25, 2018 10:32am Start: 09-01-2017 End: 11-25-2018 take 1 tablet by mouth once daily Antiarthritic Combination No.2 (Glucosamine-Chondroitin) 900 mg tablet Discontinued 900 MG PO daily September 01, 2017 12:00am November 25, 2018 11:32am Ascorbic Acid-Elderberry Fruit (20 sources) Start: 11-05-2021 End: 04-03-2022 take 2 tablets by mouth once daily Ascorbic Acid-Elderberry Fruit Discontinued 2 TABLET PO DAILY November 05, 2021 9:42am April 03, 2022 9:53am Start: 11-05-2021 End: 04-03-2022 take 2 tablets by mouth once daily Ascorbic Acid-Elderberry Fruit Discontinued 2 TABLET PO DAILY November 05, 2021 8:42am April 03, 2022 8:53am Start: 11-05-2021 take 2 tablets by mo uth once daily Ascorbic Acid-Elderberry Fruit Active 2 TABLET PO DAILY November 05, 2021 8:42am Start: 11-05-2021 take 2 tablets by mo uth once daily Ascorbic Acid-Elderberry Fruit Active 2 TABLET PO DAILY November 05, 2021 9:42am Start: 06-28-2021 End: 11-05-2021 Ascorbic Acid-Elderberry Fru it Discontinued TABLET PO June 27, 2021 11:00pm November 05, 2021 8:45am Start: 06-28-2021 End: 11-05-2021 Ascorbic Acid-Elderberry Fru it Discontinued TABLET PO June 28, 2021 12:00am November 05, 2021 9:45am aspirin 81 mg delayed release oral tablet (10 sources) Nonsteroidal Anti-inflammatory Drug Start: 08-02-2011 End: 09-09-2016 take 1 tablet by mouth once daily ASPIRIN EC 81 MG TBEC One tablet by mouth daily ASPIRIN [id number] Mac Bynum MD Start: 08-02-2011 take 1 tablet by abdulkadir th once daily ASPIRIN 81 MG TABS One tablet by mouth daily ASPIRIN [id number] Mac Bynum MD Start: 08-02-2011 take 1 tablet by abdulkadir th once daily ASPIRIN 81 MG TABS One tablet by mouth daily ASPIRIN [id number] Mac Bynum MD benzonatate 100 mg oral capsule (2 sources) Non-narcotic Antitussive Start: 02-14-2023 End: 04-23-2023 take 200 mg by mouth three times daily Benzonatate Discontinued 200 MG PO THREE TIMES A DAY February 14, 2023 1:00am April 23, 2023 2:09pm calcium carbonate 1500 mg / cholecalciferol 200 unt oral tablet (4 sources) Vitamin D Start: 01-23-2011 take 1 tablet by mouth twice daily CALCIUM + D 600-200 MG-UNIT TABS One tablet by mouth twice daily CALCIUM CARBONATE-VITAMIN D [id number] Gali Segovia Diann End: 10-13-2023 Oyster Shell Calcium w/D 500 -5 MG-MCG tablet Take by mouth daily. 10/13/2023 Discontinued (Medication Reconciliation (suppress cancel msg)) calcium carbonate / vitamin D (3 sources) Start: 01-23-2011 take 1 tablet by mouth twice daily CALCIUM + D 600-200 MG-UNIT TABS One tablet by mouth twice daily CALCIUM CARBONATE-VITAMIN D [id number] Gali Segovia Diann calcium chloride 0.0014 meq/ml / potassium chloride 0.004 meq/ml / sodium chloride 0.103 meq/ml / sodium lactate 0.028 meq/ml injectable solution (1 source) Start: 12-24-2023 End: 12-24-2023 take 30 mL intravenously every hour 30 mL/hr, INTRAVENOUS, CONTINUOUS, Starting on Fri12/24/23 at 0800, Until Fri12/24/23 at 0852, Preprocedure calcium citrate 950 mg / cholecalciferol 250 unt oral tablet (18 sources) Vitamin D Start: 11-25-2018 End: 04-23-2023 take 1 tablet by mouth once daily Calcium Citrate-Vitamin D3 (Citracal-D3 Petites) 200 mg calcium -250 unit tablet Discontinued 1 TABLET PO DAILY November 25, 2018 12:00am April 23, 2023 2:09pm CALCIUM CITRATE-VITAMIN D TABS (8 sources) Start: 08-12-2012 End: 09-09-2016 take 1 tablet by mouth once daily CITRACAL/VITAMIN D TABS One tablet by mouth daily CALCIUM CITRATE-VITAMIN D TABS [id number] Mac Bynum MD Start: 08-12-2012 take 1 tablet by abdulkadir th once daily CITRACAL/VITAMIN D TABS One tablet by mouth daily CALCIUM CITRATE-VITAMIN D TABS [id number] Mac Bynum MD Start: 08-02-2011 take 1 tablet by abdulkadir th twice daily CITRACAL/VITAMIN D TABS One tablet by mouth twice daily CALCIUM CITRATE-VITAMIN D TABS [id number] Mac Bynum MD CALCIUM CITRATE-VITAMIN D TABS (2 sources) Start: 08-12-2012 take 1 tablet by mouth once daily CITRACAL/VITAMIN D TABS One tablet by mouth daily CALCIUM CITRATE-VITAMIN D TABS [id number] Mac Bynum MD Start: 08-02-2011 take 1 tablet by abdulkadir twice daily CITRACAL/VITAMIN D TABS One tablet by mouth twice daily CALCIUM CITRATE-VITAMIN D TABS [id number] Mac Bynum MD chondroitin sulfates 400 mg oral capsule (18 sources) Start: 11-25-2018 End: 10-20-2020 take 1 capsule by mouth once daily chondroitin sulfate A sodium 400 mg capsule Discontinued 400 MG PO DAILY November 25, 2018 12:00am October 20, 2020 8:42am chondroitin sulfates 400 mg / glucosamine hydrochloride 500 mg oral capsule (7 sources) Start: 08-18-2013 End: 11-13-2023 take 1 capsule by mouth once daily glucosamine-chondroitin 500-400 mg capsule Take 1 capsule by mouth once daily. 08/18/2013 11/13/2023 Discontinued (Discontinued by Patient) Start: 08-18-2013 take 1 capsule by [facility] once daily GLUCOSAMINE-CHONDROITIN CAPS One capsule by mouth daily GLUCOSAMINE-CHONDROITIN CAPS [id number] Mac Bynum MD Comment on above: Take 1 capsule by [facility] once daily. coenzyme q10 100 mg oral capsule (14 sources) Start: 08-24-2014 End: 09-09-2016 take 1 tablet by mouth once daily COQ-10 CAPS One tablet by mouth daily COENZYME Q10 CAPS [id number] Mac Bynum MD Start: 08-12-2012 End: 08-18-2013 take 1 tablet by mouth once daily CO Q-10 100 MG CAPS One tablet by mouth daily COENZYME Q10 [id number] Mac Bynum MD Start: 08-12-2012 take 1 tablet by abdulkadir once daily CO Q-10 100 MG CAPS One tablet by mouth daily COENZYME Q10 [id number] Mac Bynum MD Start: 08-12-2012 End: 08-18-2013 take 1 tablet by mouth once daily CO Q-10 100 MG CAPS One tablet by mouth daily COENZYME Q10 [id number] Mac Bynum MD DULoxetine 30 mg delayed release oral capsule (20 sources) Serotonin and Norepinephrine Reuptake Inhibitor Start: 08-06-2022 End: 12-05-2022 take 30 mg by mouth at bedtime Duloxetine Discontinued 30 MG PO AT BEDTIME August 06, 2022 12:00am December 05, 2022 3:16pm Start: 08-06-2022 End: 12-05-2022 take 60 mg by mouth once daily at bedtime Duloxetine Discontinued 60 MG PO AT BEDTIME August 06, 2022 12:00am December 05, 2022 3:16pm Begin after completing one week course of duloxetine 30mg nightly. ELDERBERRY FRUIT (14 sources) Start: 04-03-2022 End: 04-23-2023 Elderberry Fruit Discontinue d MG PO April 03, 2022 1:00am April 23, 2023 2:08pm Start: 04-03-2022 Elderberry Fru it Active MG PO April 03, 2022 1:00am Start: 04-03-2022 Elderberry Fru it Active MG PO April 03, 2022 12:00am enzymes,digestive (DIGESTIVE ENZYMES ORAL) (3 sources) End: 02-26-2024 enzymes,digestive (DIGESTIVE ENZYMES ORAL) Take 1 capsule by mouth once daily as needed. May take two capsules 02/26/2024 Discontinued (Other) enzymes,digestiv e (DIGESTIVE ENZYMES ORAL) Take 1 capsule by mouth once daily as needed. May take two capsules Active esomeprazole 40 mg injection (8 sources) Proton Pump Inhibitor Start: 01-23-2011 End: 08-12-2012 take 1 tablet by mouth once daily NEXIUM 40 MG CPDR One tablet by mouth daily ESOMEPRAZOLE MAGNESIUM [id number] Mac Bynum MD Start: 01-23-2011 End: 08-12-2012 take 1 tablet by mouth once daily NEXIUM 40 MG CPDR One tablet by mouth daily ESOMEPRAZOLE MAGNESIUM [id number] Gali Tidwell estradiol 2 mg oral tablet (8 sources) Estrogen Start: 01-23-2011 End: 08-02-2011 ESTRING 2 MG RING Take as directed ESTRADIOL [id number] Mac Bynum MD Start: 01-23-2011 End: 08-02-2011 ESTRING 2 MG RING Take as di rected ESTRADIOL [id number] Gali Luca Tidwell 1 ml fentaNYL 0.05 mg/ml injection (1 source) Opioid Agonist Start: 12-24-2023 End: 12-24-2023 25-100 mcg, INTRAVENOUS, DIRECTED, Starting on Fri12/24/23 at 0830, Until Fri12/24/23 at 1229, DOSING DIRECTED BY PHYSICIAN FOR PROCEDURAL SEDATION ONLY, Intraprocedure flaxseed extract (8 sources) Non-Standardized Food Allergenic Extract, Non-Standardized Plant Allergenic Extract Start: 01-23-2011 take 1 tablet by mouth once daily FLAX SEED OIL CAPS One tablet by mouth daily FLAXSEED (LINSEED) CAPS [id number] Gali Tidwell Start: 01-23-2011 End: 08-12-2012 take 1 tablet by mouth once daily FLAX SEED OIL CAPS One tablet by mouth daily FLAXSEED (LINSEED) CAPS [id number] Mac Bynum MD fluorometholone 1 mg/ml ophthalmic suspension (3 sources) Corticosteroid End: 10-13-2023 take 1 drop(s) into the eye(s) four times daily fluorometholone 0.1 % Suspension ophthalmic suspension 1 drop 4 times daily. 10/13/2023 Discontinued (Medication Reconciliation (suppress cancel msg)) glucosamine hydrochloride 1500 mg oral tablet (19 sources) Start: 11-25-2018 End: 10-20-2020 take 3000 mg by mouth once daily Glucosamine Hcl Discontinued 3000 MG PO DAILY November 25, 2018 12:00am October 20, 2020 8:43am End: 10-13-2023 Glucosamine HCl (GLUCOSAMINE PO) Take by mouth. 10/13/2023 Discontinued krill oil 500 mg oral capsule (20 sources) Start: 09-01-2017 End: 09-08-2017 take 500 mg by mouth once daily Krill Oil Discontinued 500 MG PO daily September 01, 2017 12:00am September 08, 2017 1:24pm Start: 08-12-2012 take 1 tablet by abdulkadir th once daily KRILL OIL CAPS One tablet by mouth daily KRILL OIL CAPS [id number] Mac Bynum MD seakfiitdt-ctdgyys-zvlemsqbi in (FOLINIC-PLUS) 4-50-2 mg tab (3 sources) End: 02-26-2024 take 1 tablet by mouth once daily yinatjwozr-yainues-tzjyluzymgk (FOLINIC-PLUS) 4-50-2 mg tab Take 1 tablet by mouth once daily. 02/26/2024 Discontinued (Other) take 1 tablet by abdulkadir th once daily eylivzzhay-gipnhfk-hybvcdjocok (FOLINIC- PLUS) 4-50-2 mg tab Take 1 tablet by mouth once daily. Active magnesium (9 sources) Start: 08-12-2012 End: 09-09-2016 take 1 tablet by mouth once daily MAGNESIUM CAPS One tablet by mouth daily MAGNESIUM CAPS [id number] Mac Bynum MD Start: 08-12-2012 take 1 tablet by abdulkadir th once daily MAGNESIUM CAPS One tablet by mouth daily MAGNESIUM CAPS [id number] Mac Bynum MD End: 11-13-2023 MAGNESIUM ORAL Take by mouth once daily. 11/13/2023 Discontinued (Discontinued by Patient) MAGNESIUM ORAL T yessy by mouth once daily. 0 Active Comment on above: Take by mouth once d aily. magnesium gluconate 200 mg oral tablet (2 sources) Start: 03-04-2023 End: 04-23-2023 Magnesium gluconate Discontinued 200 MG PO AT BEDTIME 60 March 04, 2023 1:00am April 23, 2023 2:08pm Magnesium gluconate 100 mg 2 tablets orally nightly. MEDICATION, NON-DATABASE (3 sources) End: 11-13-2023 MEDICATION, NON-DATABASE Joint Blend 11/13/2023 Discontinued (Discontinued by Patient) MEDICATION, NON- DATABASE Joint Blend 0 Active Comment on above: Joint Blend melatonin 5 mg oral tablet (8 sources) Start: 2 End: 3 take 1 tablet by mouth once daily as needed MELATONIN 5 MG TABS One tablet by mouth daily as needed MELATONIN [id number] Mac Bynum MD meloxicam 15 mg oral tablet (20 sources) Nonsteroidal Anti-inflammatory Drug Start: End: take 15 mg by mouth once daily Meloxicam Discontinued 15 MG PO DAILY November 25, 2018 12:00am October 20, 2020 8:44am End: 11-13-2023 MELOXICAM ORAL Take by mouth . 11/13/2023 Discontinued (Discontinued by Patient) MELOXICAM ORAL T yessy by mouth. 0 Active Comment on above: Take by mouth. methylPREDNISolone 4 mg oral tablet (2 sources) Corticosteroid Start: End: take 1 tablet by mouth once Methylprednisolone (Medrol (Denny)) 4 mg tablets,dose pack Discontinued 4 MG PO per package directions 07 08February 14, 2023 1:00am February 20, 2023 1:04am 5 ml midazolam 1 mg/ml injection (1 source) Benzodiazepine Start: End: 1-5 mg, INTRAVENOUS, DIRECTED, Starting on Fri12/24/23 at 0830, Until Fri12/24/23 at 1229, DOSING DIRECTED BY PHYSICIAN FOR PROCEDURAL SEDATION ONLY, Intraprocedure Multivitamin preparation (18 sources) Start: End: take 1 tablet by mouth once daily Multivitamin Discontinued 1 TABLET PO DAILY November 25, 2018 11:30am October 20, 2020 8:44am Start: 11-25-2018 End: 10-20-2020 take 1 tablet by mouth once daily Multivitamin Discontinued 1 TABLET PO DAILY November 24, 2018 11:00pm October 20, 2020 7:44am Start: 11-25-2018 End: 10-20-2020 take 1 tablet by mouth once daily Multivitamin Discontinued 1 TABLET PO DAILY November 25, 2018 12:00am October 20, 2020 8:44am multivitamin with minerals (HAIR,SKIN AND NAILS ORAL) (3 sources) End: 11-13-2023 multivitamin with minerals (HAIR,SKIN AND NAILS ORAL) Take by mouth. 11/13/2023 Discontinued (Discontinued by Patient) multivitamin wit h minerals (HAIR,SKIN AND NAILS ORAL) Take by mouth. 0 Active Comment on above: Take by mouth. naproxen sodium 220 mg oral capsule (18 sources) Nonsteroidal Anti-inflammatory Drug Start: 9 End: 1 take 1 capsule by mouth twice daily Naproxen Sodium (Aleve) 220 mg capsule Discontinued 220 MG PO TWICE A DAY November 25, 2018 12:00am October 20, 2020 8:44am niacin 100 mg oral tablet (18 sources) Nicotinic Acid Start: 1 End: 2 take 100 mg by mouth once daily Niacin Discontinued 100 MG PO DAILY October 20, 2020 12:00am November 05, 2021 9:44am Potassium (3 sources) End: 4 POTASSIUM ORAL Take by mouth once daily. 11/13/2023 Discontinued (Discontinued by Patient) POTASSIUM ORAL T yessy by mouth once daily. 0 Active Comment on above: Take by mouth once d aily. potassium chloride 10 meq extended release oral tablet (10 sources) Start: 12-05-2022 End: 04-23-2023 take 10 mEq by mouth at bedtime Potassium Chloride Discontinued 10 MEQ PO AT BEDTIME March 11, 2023 10:04am April 23, 2023 2:08pm take 2 tablets by mouth twice da sam potassium chloride 10 MEQ Tab CR tablet ER Take 2 tablets by mouth 2 times daily. Active POTASSIUM (6 sources) Start: 08-18-2013 End: 09-09-2016 take 1 tablet by mouth once daily POTASSIUM 99 MG TABS One tablet by mouth daily POTASSIUM [id number] Mac Bynum MD Start: 08-18-2013 take 1 tablet by abdulkadir th once daily POTASSIUM 99 MG TABS One tablet by mouth daily POTASSIUM [id number] Mac Bynum MD Start: 08-18-2013 take 1 tablet by abdulkadir th once daily POTASSIUM 99 MG TABS One tablet by mouth daily POTASSIUM [id number] Mac Bynum MD pravastatin sodium 20 mg oral tablet (20 sources) HMG-CoA Reductase Inhibitor Start: 10-03-2013 End: 09-01-2017 take 10 mg by mouth at bedtime Pravastatin Discontinued 10 MG PO AT BEDTIME October 03, 2013 12:00am September 01, 2017 4:14pm Start: 08-02-2011 End: 08-24-2014 take 1 tablet by mouth at bedtime PRAVASTATIN SODIUM 20 MG TABS One tablet by mouth at bedtime. PRAVASTATIN SODIUM [id number] Mac Bynum MD psyllium 400 mg oral capsule (18 sources) Start: 10-20-2020 End: 11-05-2021 Psyllium Husk (Daily Fiber) 0.4 gram capsule Discontinued 0.4 GM PO DAILY October 20, 2020 12:00am November 05, 2021 9:44am pyridoxine HCl, vitamin B6, (VITAMIN B-6 ORAL) [...] One tablet by mouth daily RANITIDINE HCL [id number] Mac Bynum MD traMADol hydrochloride 50 mg oral tablet (6 sources) Opioid Agonist Start: 4 End: 7 take 1 tablet by mouth once daily as needed for muscle spasms TRAMADOL HCL 50 MG TABS One tablet by mouth daily as needed for back spasms TRAMADOL HCL [id number] Mac Bynum MD Turmeric Root Extract (18 sources) Start: 8 End: 9 take 538 mg by mouth once daily Turmeric Root Extract Discontinued 538 MG PO daily September 01, 2017 4:12pm November 25, 2018 11:34am Start: 09-01-2017 End: 11-25-2018 take 538 mg by mouth once daily Turmeric Root Extract Discontinued 538 MG PO daily August 31, 2017 11:00pm November 25, 2018 10:34am Start: 09-01-2017 End: 11-25-2018 take 538 mg by mouth once daily Turmeric Root Extract Discontinued 538 MG PO daily September 01, 2017 12:00am November 25, 2018 11:34am vitamin b 12 0.25 mg oral tablet (8 sources) Vitamin B12 Start: 08-02-2011 End: 09-11-2015 take 1 tablet by mouth once daily VITAMIN B-12 250 MCG TABS One tablet by mouth daily CYANOCOBALAMIN [id number] Mac Bynum MD CHOLECALCIFEROL (2 sources) Start: 09-09-2016 take 1 tablet by mouth once daily VITAMIN D 1000 UNIT TABS One tablet by mouth daily CHOLECALCIFEROL [id number] Mac Bynum MD vitamin e 180 mg oral capsule (20 sources) Start: 11-25-2018 End: 04-03-2022 take 400 [IU] by mouth once daily Vitamin E (Dl, Acetate) Discontinued 400 UNIT PO DAILY November 25, 2018 12:00am April 03, 2022 9:54am Start: 08-12-2012 End: 09-09-2016 take 1 tablet by mouth once daily VITAMIN E 400 UNIT CAPS One tablet by mouth daily VITAMIN E [id number] Mac Bynum MD VITAMIN E ORAL (3 sources) End: 11-13-2023 VITAMIN E ORAL Take by mouth once daily. 11/13/2023 Discontinued (Discontinued by Patient) VITAMIN E ORAL T yessy by mouth once daily. 0 Active Comment on above: Take by mouth once d aily. Problems Active Problems Problem Classification Problem Date Documented Date Episodic/Chronic Blindness and vision defects (3 sources) Diplopia; Translations: [Diplopia] Onset: 4 08-27-2023 Episodic Cardiac dysrhythmias (20 sources) Ventricular premature beats; Translations: [Ventricular premature depolarization] Onset: 1 01-23-2011 Chronic Cardiac dysrhythmias (20 sources) Palpitations; Translations: [Intermittent palpitations] Onset: 1 01-23-2011 Episodic Diseases of mouth; excluding dental (8 sources) Xerostomia; Translations: [Dry mouth, unspecified] Onset: 4 10-13-2023 Episodic Diseases of white blood cells (19 sources) Leukopenia; Translations: [Decreased white blood cell count, unspecified] Onset: 3 08-07-2022 Chronic Disorders of lipid metabolism (20 sources) Hyperlipidemia; Translations: [Hyperlipidemia, unspecified] Onset: 1 01-23-2011 Chronic Esophageal disorders (1 source) Esophageal disorders Onset: 8 Genitourinary symptoms and ill-defined conditions (17 sources) Microscopic hematuria; Translations: [Other microscopic hematuria] Onset: 3 Resolved: 4 09-25-2022 Episodic Hemorrhoids (7 sources) Internal hemorrhoids; Translations: [Other hemorrhoids] 02-04-2006 Episodic Influenza (4 sources) Influenza due to Influenza A virus; Translations: [Influenza due to other identified influenza virus with other respiratory manifestations] 02-14-2023 Episodic Menopausal disorders (7 sources) Menopausal symptom; Translations: [Menopausal and female climacteric states] Onset: 6 08-05-2005 Chronic Nonmalignant breast conditions (7 sources) Fibrocystic disease of breast; Translations: [Diffuse cystic mastopathy of unspecified breast] Onset: 1 02-03-2011 Chronic Osteoarthritis (1 source) Primary osteoarthritis, right shoulder; Translations: [Primary osteoarthritis, right shoulder] Onset: 5 Chronic Osteoporosis (17 sources) Osteoporosis; Translations: [Age-related osteoporosis without current pathological fracture] 06-28-2021 Chronic Other acquired deformities (5 sources) Thoracogenic scoliosis, thoracic region; Translations: [Thoracogenic scoliosis] Onset: 3 09-25-2022 Chronic Other acquired deformities (4 sources) Scoliosis of thoracic spine; Translations: [Scoliosis, unspecified] Onset: 3 09-25-2022 Chronic Other aftercare (9 sources) H/O: high risk medication; Translations: [Other long term care administrator (current) drug therapy] Onset: 3 08-07-2022 Episodic Other aftercare (7 sources) Patient encounter status; Translations: [Encounter for therapeutic drug level monitoring] Onset: 4 10-13-2023 Episodic Other aftercare (2 sources) Encounter for therapeutic drug level monitoring; Translations: [Encounter for therapeutic drug level monitoring] Onset: 4 Episodic Other aftercare (2 sources) Other long term care administrator (current) drug therapy; Translations: [Other alf (current) drug therapy] Onset: 4 Episodic Other aftercare (2 sources) 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-steroidal anti-inflammatories (NSAID); Translations: [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-steroidal anti-inflammatories (nsaid)] Onset: 4 Episodic Other and unspecified benign neoplasm (7 sources) Benign neoplasm of cranial nerve; Translations: [Benign neoplasm of cranial nerves] Onset: 9 03-08-2008 Chronic Other and unspecified benign neoplasm (3 sources) Adenomatous polyp of colon ; Translations: [Benign neoplasm of colon, unspecified] Episodic Other and unspecified benign neoplasm (1 source) Benign neoplasm of colon, unspecified; Translations: [Adenomatous polyp of colon, unspecified part of colon] Onset: 4 Episodic Other connective tissue disease (14 sources) Cramp; Translations: [Cramp and spasm] 04-03-2022 Episodic Other connective tissue disease (14 sources) Cramp and spasm; Translations: [Cramp of limb] 04-03-2022 Episodic Other connective tissue disease (12 sources) Spasm; Translations: [Cramp and spasm] 05-21-2022 Episodic Other connective tissue disease (10 sources) [...] and connective tissue] Onset: 3 Episodic Other connective tissue disease (1 source) Pain in left foot; Translations: [Pain in left foot] Onset: 5 Episodic Other connective tissue disease (2 sources) Pain in right foot; Translations: [Pain in right foot] Onset: 4 Episodic Other connective tissue disease (1 source) Unspecified rotator cuff tear or rupture of right shoulder, not specified as traumatic; Translations: [Unspecified rotator cuff tear or rupture of right shoulder, not specified as traumatic] Onset: 5 Episodic Other connective tissue disease (1 source) Adhesive capsulitis of right shoulder; Translations: [Adhesive capsulitis of right shoulder] Onset: 5 Episodic Other diseases of bladder and urethra (1 source) Overactive bladder; Translations: [Overactive bladder] 03-03-2024 Chronic Other ear and sense organ disorders (1 source) Sensorineural hearing loss, bilateral; Translations: [Sensorineural hearing loss, bilateral] Onset: 8 Chronic Other ear and sense organ disorders (7 sources) Sensorineural hearing loss; Translations: [Unspecified sensorineural [...] bilateral lacrimal glands] Onset: 4 Episodic Other hereditary and degenerative nervous system conditions (14 sources) Restless legs; Translations: [Restless legs syndrome] 04-03-2022 Chronic Other hereditary and degenerative nervous system conditions (14 sources) Restless legs syndrome; Translations: [Restless legs syndrome (RLS)] 04-03-2022 Chronic Other nervous system disorders (14 sources) Polyneuropathy; Translations: [Polyneuropathy, unspecified] 04-03-2022 Chronic Other nervous system disorders (15 sources) Polyneuropathy, unspecified; Translations: [Unspecified hereditary and idiopathic peripheral neuropathy] Onset: 4 04-03-2022 Chronic Other nervous system disorders (9 sources) History [...] and sense organs] Onset: 3 Episodic Other non-traumatic joint disorders (2 sources) Pain in left shoulder; Translations: [Pain in left shoulder] Onset: 5 Episodic Other non-traumatic joint disorders (1 source) Pain in right shoulder; Translations: [Pain in right shoulder] Onset: 5 Episodic Other non-traumatic joint disorders (1 source) Other specified joint disorders, right shoulder; Translations: [Other specified joint disorders, right shoulder] Onset: 5 Episodic Other nutritional; endocrine; and metabolic disorders (2 sources) Hypoproteinemia; Translations: [Other disorders of glycoprotein metabolism] Onset: 4 10-13-2023 Chronic Other nutritional; endocrine; and metabolic disorders (2 sources) Other disorders of glycoprotein metabolism; Translations: [Other disorders of glycoprotein metabolism] Onset: 4 Chronic Prolapse of female genital organs (1 source) Midline cystocele; Translations: [Cystocele, midline] 03-03-2024 Chronic Residual codes; unclassified (9 sources) Family history of malignant neoplasm of [...] keratoconjunctivitis] Onset: 4 04-02-2023 Chronic Thyroid disorders (11 sources) Hypothyroidism; Translations: [Hypothyroidism, unspecified] Onset: 3 [...] Date Documented Date Episodic/Chronic Biliary tract disease (7 sources) Cholecystitis; Translations: [Cholecystitis, unspecified] Onset: 10-07-2013 10-07-2013 Episodic Diabetes mellitus without complication (8 sources) Ketonuria; Translations: [Acetonuria] Onset: 09-25-2022 Resolved: 10-13-2023 09-25-2022 Episodic Esophageal disorders (7 sources) Esophagitis; Translations: [Esophagitis, unspecified] Onset: 07-25-2011 07-25-2011 Episodic Immunizations and screening for infectious disease (19 sources) Anti-nuclear factor positive; Translations: [Other specified abnormal immunological findings in serum] Onset: 08-07-2022 08-07-2022 Episodic Malaise and fatigue (7 sources) Fatigue; Translations: [Other fatigue] Onset: 08-07-2022 08-07-2022 Episodic Mycoses (1 source) Tinea unguium; Translations: [Tinea unguium] Onset: 12-30-2023 Episodic Nonspecific chest pain (8 sources) Precordial pain; Translations: [Precordial pain] Onset: 01-23-2011 Resolved: 09-05-2016 09-05-2016 Episodic Open wounds of extremities (2 sources) Laceration without foreign body of right ring finger without damage to nail, initial encounter; Translations: [Laceration without foreign body of right ring finger without damage to nail, initial encounter] Onset: 12-12-2023 Episodic Other aftercare (4 sources) Long-term current use of systemic steroid; Translations: [[facility] (current) use of systemic steroids] Onset: 04-02-2023 04-02-2023 Episodic Other aftercare (2 sources) 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 steroids; 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] Onset: 04-02-2023 Episodic Other bone disease and musculoskeletal deformities (7 sources) Osteopenia; Translations: [Other specified disorders of bone density and structure, unspecified site] Onset: 01-23-2012 01-23-2012 Episodic Other bone disease and musculoskeletal deformities (6 sources) Disorder of skeletal system; Translations: [Disorder of bone, unspecified] Onset: 08-07-2022 08-07-2022 Episodic Other connective tissue disease (1 source) Fibromyalgia; Translations: [Fibromyalgia] Onset: 08-07-2022 Episodic Other injuries and conditions due to external causes (1 source) Unspecified injury of right wrist, hand and finger(s), initial encounter; Translations: [Unspecified injury of right wrist, hand and finger(s), initial encounter] Onset: 12-12-2023 Episodic Other liver diseases (2 sources) Abnormal levels of other serum enzymes; Translations: [Abnormal levels of other serum enzymes] Onset: 09-25-2022 Episodic Other nervous system disorders (6 sources) Abnormal reflex; Translations: [Abnormal reflex] Onset: 08-07-2022 08-07-2022 Episodic Other nutritional; endocrine; and metabolic disorders (5 sources) Hypocalcemia; Translations: [Hypocalcemia] Onset: 09-25-2022 Resolved: 04-02-2023 09-25-2022 Chronic Other screening for suspected conditions (not mental disorders or infectious disease) (2 sources) Encounter for screening for malignant neoplasm of colon; Translations: [Encounter for screening mammogram for malignant neoplasm of breast] Onset: 12-24-2023 Episodic Other skin disorders (1 source) Corns and callosities; Translations: [Corns and callosities] Onset: 12-12-2023 Episodic Courtney-; endo-; and myocarditis; cardiomyopathy (8 [...] Test Name Value Interpretation Reference Range Facility Orthopedic Visit Reporton Orthopedic Visit Report [facility] [address] [place] [address] [address] [place] [address] OFFICE VISIT Date of Service: 06/24/24 MR#: [id number] Acct: [id number] Name: AYESHA CASTREJON Rep #: [id number] : 1950 Provider: Dr. Nirmal cabrera MD Age/Sex: 73/F [place] [facility] [place] Status: Signed Intake Vital Signs 06/07/24 13:42 Height 5 ft 1.5 in Weight: 120 lb BMI 22.3 Intake Visit Reasons: LEFT SHOULDER Chief Complaint: Left Shoulder Pain Accompanied by: Self Is patient in pain?: Yes Allergies pseudoephedrine Allergy (Verified 06/24/24 13:08) Rapid Heart rate Medications ???Medication ???Instructions ???Recorded ???Confirmed ???Type levothyroxine 50 mcg tablet 50 mcg PO DAILY 10/03/13 06/24/24 History Prolia 60 mg/mL subcutaneous 60 mg subcut [id number] #1 mL 06/24/24 Rx syringe (denosumab) cholecalciferol (vitamin D3) 25 4,000 unit PO DAILY 04/03/2206/24 History mcg (1,000 unit) tablet ipratropium bromide 42 mcg (0.06 2 spray intranasal PRN 04/03/22 History %) nasal spray gabapentin 100 mg capsule 200 mg PO QHS 04/23/23 06/24/24 Hi story ropinirole 1 mg tablet 1 mg PO QHS #30 tabs 09/01/2310/11 Rx calcium 500 mg tablet 500 mg PO DAILY 03/17/24 06/24/24 History magnesium glycinate 100 mg (as 200 mg PO BID 03/17/24 06/24/24 Hi story glycinate) tablet (Mag Glycinate) tljjqwstouwk-rgqa-nefhknf s-folic 1 tab PO DAILY 03/17/24 06/24/24 H istory acid 400 mcg-biotin 100 mcg tablet omega 3 350 mg-dha 235 mg-epa 90 1 cap PO DAILY 03/17/24 06/24/24 H istory mg-fish oil 597 mg capsule,delay rel ([place]-3) turmeric 450 mg-turmeric root 1 cap PO DAILY 03/17/24 06/24/24 H istory extract 50 mg capsule vitamin B complex 1 tab PO DAILY 03/17/24 06/24/24 H istory Have you fallen in the past year?: No PFSH Medical History Left shoulder pain Adhesive capsulitis of right shoulder Wears hearing aid Wears glasses Post-menopausal Cancer History of steroid therapy Thyroid disease Arthritis Back pain Former smoker Leg cramps History of echocardiogram History of stress test Cardiology follow-up encounter History of irregular heartbeat Arthrosis of right acromioclavicular joint Right rotator cuff tear Impingement of right shoulder Right shoulder pain Laceration of right ring finger Osteoporosis Brain tumor Pericardial effusion Hypothyroidism GERD (gastroesophageal reflux disease) RLS (restless legs syndrome) Malignant neoplasm of colon Malignant neoplasm of kidney DDD (degenerative disc disease) Hyperlipidemia Premature ventricular contraction Premature atrial contractions Surgical History History of laparoscopic cholecystectomy Hx of basal cell carcinoma excision History of eyelid surgery History of cochlear implant History of vein stripping History of shoulder surgery History of tubal ligation History of hysterectomy History of tonsillectomy Family History Father CAD (coronary artery disease) Hx of CABG Mother History of permanent cardiac pacemaker placement Social History Smoking Status: Former smoker alcohol intake: current details: occasional HPI LEFT SHOULDER Details: This documentation accurately reflects the service provided and the decisions made by me, Dr. Nirmal Head MD 06/24/24 1101. Part of today???s visit was documented by [ ], acting as scribe. AYESHA CASTREJON is a 73 year old F here today for L shoulder pain. Patient previously had a rotator cuff repair on the other side. 2 months of atraumatic left shoulder pain. Seems to be getting worse. The patient has been in the gym doing physical therapy exercises has been doing the same physical exercises on the left that she has been doing on the right side for post rotator cuff repair she does symmetric exercises but now is noticing some weakness difficulty lifting anterior and lateral location of the pain worse after lifting and worse at night. Supplemental Info Left shoulder x-rays 4 views obtained demonstrates no OA, mild acj arthrosis. nil acute. Coding Level of Care Code Off vis,est,level 4 Diagnoses Left shoulder pain M25.512 Assessment and Plan Assessment and Plan (1) Left shoulder pain: Status: Acute Plan: 73-year-old female with left shoulder pain. Reviewed xr - no OA. Patient had a prior rotator cuff surgery on the contralateral side and now this 1 feels the same in this patient has failed 6 weeks of formal physical therapy as well as as the patient over 69 therefore I will go ahead and go an MRI (more content not included)... Normal [facility] Shoulder min 2 Viewson 06-24 Shoulder min 2 Views [facility] [address] [place], [place] [address] Shoulder min 2 Views MR#: [id number] Acct: [id number] Name: AYESHA CASTREJON Rep #: [id number] : 1950 F 73 From: Lewis Watson i, MD PCP: Dr. Malvin Douglas MD Status: DEP AMB Study: Shoulder min 2 Views Date of Exam: 06/24/24 Exam# [id number] Ordering Dr: Nirmal Head MD PROCEDURE: SHOULDER MIN 2 VIEWS 06/24/2024 REASON FOR EXAM: PAIN, NKI TECHNIQUE: Four views of the left shoulder COMPARISON: None. FINDINGS: No acute fracture or dislocation is seen. There is widening of the AC joint space. This may be due to resorption of the distal clavicle versus damage to the AC joint ligament. Correlate clinically for exact site of pain. Resorption of the distal clavicle may be due to several etiology such as, but not limited to hyperparathyroidism, rheumatoid arthritis, scleroderma etcetera. Correlate clinically. RAD/Shoulder min 2 Views IMPRESSION: No acute fracture or dislocation is seen. There is widening of the AC joint space. This may be due to resorption of the distal clavicle versus damage to the AC joint ligament. Correlate clinically for exact site of pain. Resorption of the distal clavicle may be due to several etiology such as, but not limited to hyperparathyroidism, rheumatoid arthritis, scleroderma etcetera. Correlate clinically. May Electronically Signed By: Lewis cabrera 06/25/2024 05:00 Reading Location: [facility] CC: Dr. Malvin Douglas MD; Dr. 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 Nirmal cabrera MD Age/Sex: 73/F [place] [facility] [place] Status: Signed Intake Vital Signs 05/10/24 12:51 06/07/24 13:42 Height 5 ft 1.5 in 5 ft 1.5 in Weight: 123 lb 4 oz 120 lb BMI 22.8 22.3 Intake Visit Reasons: LEFT SHOULDER Chief Complaint: 2 month post op Accompanied by: Self Is patient in pain?: Yes Pain scale (1-10): 1 Allergies pseudoephedrine Allergy (Verified 06/07/24 13:46) Rapid Heart rate Medications ???Medication ???Instructions ???Recorded ???Confirmed ???Type levothyroxine 50 mcg tablet 50 mcg PO DAILY 10/03/13 06/07/24 History Prolia 60 mg/mL subcutaneous 60 mg subcut [id number] #1 mL 06/07/24 Rx syringe (denosumab) cholecalciferol (vitamin D3) 25 4,000 unit PO DAILY 04/03/2206/07 History mcg (1,000 unit) tablet ipratropium bromide 42 mcg (0.06 2 spray intranasal PRN 04/03/22 History %) nasal spray gabapentin 100 mg capsule 200 mg PO QHS 04/23/23 06/07/24 Hi story ropinirole 1 mg tablet 1 mg PO QHS #30 tabs 09/01/23/03/13 Rx calcium 500 mg tablet 500 mg PO DAILY 03/17/24 06/07/24 History magnesium glycinate 100 mg (as 200 mg PO BID 03/17/24 06/07/24 Hi story glycinate) tablet (Mag Glycinate) ipaiixlqrjem-kgpo-xnqhzuy s-folic 1 tab PO DAILY 03/17/24 06/07/24 H istory acid 400 mcg-biotin 100 mcg tablet omega 3 350 mg-dha 235 mg-epa 90 1 cap PO DAILY 03/17/24 06/07/24 H istory mg-fish oil 597 mg capsule,delay rel ([place]-3) turmeric 450 mg-turmeric root 1 cap PO DAILY 03/17/24 06/07/24 H istory extract 50 mg capsule vitamin B complex 1 tab PO DAILY 03/17/24 06/07/24 H istory Have you fallen in the past year?: No PFSH Medical History Adhesive capsulitis of right shoulder Wears hearing aid Wears glasses Post-menopausal Cancer History of steroid therapy Thyroid disease Arthritis Back pain Former smoker Leg cramps History of echocardiogram History of stress test Cardiology follow-up encounter History of irregular heartbeat Arthrosis of right acromioclavicular joint Right rotator cuff tear Impingement of right shoulder Right shoulder pain Laceration of right ring finger Osteoporosis Brain tumor Pericardial effusion Hypothyroidism GERD (gastroesophageal reflux disease) RLS (restless legs syndrome) Malignant neoplasm of colon Malignant neoplasm of kidney DDD (degenerative disc disease) Hyperlipidemia Premature ventricular contraction Premature atrial contractions Surgical History History of laparoscopic cholecystectomy Hx of basal cell carcinoma excision History of eyelid surgery History of cochlear implant History of vein stripping History of shoulder surgery History of tubal ligation History of hysterectomy History of tonsillectomy Family History Father CAD (coronary artery disease) Hx of CABG Mother History of permanent cardiac pacemaker placement Social History Smoking Status: Former smoker alcohol intake: current details: occasional HPI LEFT SHOULDER Details: This documentation accurately reflects the service provided and the decisions made by me, Dr. Nirmal Head MD 06/07/24 1324. Part of today???s visit was documented by [ ], acting as scribe. AYESHA CASTREJON is a 73 year old F here today for 10 weeks postop arthroscopy rotator cuff repair complicated by adhesive capsulitis, cortisone injection 4 weeks ago. Patient doing well working hard with physical therapy the range of motion is much improved the pain has settled down. Patient has started some light banded exercises and strengthening. Coding Level of Care Code Global Post Op Diagnoses Adhesive capsulitis of right shoulder M75.01 Assessment and Plan Assessment and Plan (1) Adhesive capsulitis of right shoulder: Status: Acute Plan: AYESHA CASTREJON is a 73 year old F here today for 10 weeks postop arthroscopy rotator cuff repair complicated by adhesive capsulitis, cortisone injection 4 weeks ago. Patient overall doing well okay to start light strengthening progressed that and follow-up in 2 to 3 months time or as needed per the patient's request. Clinical Quality Measures Falls Risk Screening/Assistive Devices Have you fallen in the past year?: No Ortho Exam General General: Yes no acute distress Ne (more content not included)... Normal [facility] Orthopedic Visit Reporton Orthopedic Visit Report [facility] [address] [place] [address] OFFICE VISIT Date of Service: 05/10/24 MR#: [id number] Acct: [id number] Name: AYESHA CASTREJON Rep #: [id number] : 1950 Provider: Dr. Nirmal cabrera MD Age/Sex: 73/F [place] [facility] [place] Status: Signed Intake Vital Signs 03/31/24 10:16 05/10/24 12:51 Height 5 ft 1.5 in 5 ft 1.5 in Weight: 123 lb 4 oz BMI 22.8 Intake Visit Reasons: LEFT SHOULDER, RIGHT SHOULDER Chief Complaint: 6 week post op Accompanied by: Self Is patient in pain?: No Allergies pseudoephedrine Allergy (Verified 05/10/24 12:55) Rapid Heart rate Medications ???Medication ???Instructions ???Recorded ???Confirmed ???Type levothyroxine 50 mcg tablet 50 mcg PO DAILY 10/03/13 05/10/24 History Prolia 60 mg/mL subcutaneous 60 mg subcut [id number] #1 mL 05/10/24 Rx syringe (denosumab) cholecalciferol (vitamin D3) 25 4,000 unit PO DAILY 04/03/2205/10 History mcg (1,000 unit) tablet ipratropium bromide 42 mcg (0.06 2 spray intranasal PRN 04/03/22 History %) nasal spray gabapentin 100 mg capsule 200 mg PO QHS 04/23/23 05/10/24 Hi story ropinirole 1 mg tablet 1 mg PO QHS #30 tabs 09/01/2304/18 Rx calcium 500 mg tablet 500 mg PO DAILY 03/17/24 05/10/24 History magnesium glycinate 100 mg (as 200 mg PO BID 03/17/24 05/10/24 Hi story glycinate) tablet (Mag Glycinate) arqtbitdguis-xrxy-pacgpwf s-folic 1 tab PO DAILY 03/17/24 05/10/24 H istory acid 400 mcg-biotin 100 mcg tablet omega 3 350 mg-dha 235 mg-epa 90 1 cap PO DAILY 03/17/24 05/10/24 H istory mg-fish oil 597 mg capsule,delay rel ([place]-3) turmeric 450 mg-turmeric root 1 cap PO DAILY 03/17/24 05/10/24 H istory extract 50 mg capsule vitamin B complex 1 tab PO DAILY 03/17/24 05/10/24 H istory Have you fallen in the past year?: No PFSH Medical History (Updated 05/10/24 @ 13:23 by Nirmal Head MD) Adhesive capsulitis of right shoulder Wears hearing aid Wears glasses Post-menopausal Cancer History of steroid therapy Thyroid disease Arthritis Back pain Former smoker Leg cramps History of echocardiogram History of stress test Cardiology follow-up encounter History of irregular heartbeat Arthrosis of right acromioclavicular joint Right rotator cuff tear Impingement of right shoulder Right shoulder pain Laceration of right ring finger Osteoporosis Brain tumor Pericardial effusion Hypothyroidism GERD (gastroesophageal reflux disease) RLS (restless legs syndrome) Malignant neoplasm of colon Malignant neoplasm of kidney DDD (degenerative disc disease) Hyperlipidemia Premature ventricular contraction Premature atrial contractions Surgical History History of laparoscopic cholecystectomy Hx of basal cell carcinoma excision History of eyelid surgery History of cochlear implant History of vein stripping History of shoulder surgery History of tubal ligation History of hysterectomy History of tonsillectomy Family History Father CAD (coronary artery disease) Hx of CABG Mother History of permanent cardiac pacemaker placement Social History Smoking Status: Former smoker alcohol intake: current details: occasional HPI LEFT SHOULDER Details: This documentation accurately reflects the service provided and the decisions made by me, Dr. Nirmal Head MD 05/10/24 1251. Part of today???s visit was documented by [ ], acting as scribe. AYESHA CASTREJON is a 73 year old F here today for RIGHT SHOULDER Details: This documentation accurately reflects the service provided and the decisions made by me, Dr. Nirmal Head MD 05/10/24 1254. Part of today???s visit was documented by [ ], acting as scribe. AYESHA CASTREJON is a 73 year old F here today for 6 weeks follow-up right shoulder arthroscopy subacromial decompression rotator cuff repair. The patient is having some stiffness the first 4 weeks of physical therapy was going well but over the last 2 weeks the shoulder has developed some stiffness. The patient has a history of hypothyroidism. Ortho Exam General General: Yes no acute distress Neurologic: Yes alert and Yes oriented x3 Psychologic: Yes reasonable and appropriate Right Shoulder Skin/Wound: Yes CDI, No ecchymosis, No erythema and No swelling SHOULDER: Active and passive forward elevation 90 degrees external rotation 0 degrees. Scapulothoracic motion is abnormal. Office Procedures Ortho Injections Injections Yes Subacromial Injection Is this a patient provided medicatio (more content not included)... Normal [facility] Orthopedic Visit Reporton Orthopedic Visit Report [facility] [facility] [address] [place] [address] OFFICE VISIT Date of Service: 04/13/24 MR#: [id number] Acct: [id number] Name: AYESHA CASTREJON Rep #: [id number] : 1950 Provider: Dr. Nirmal cabrera MD Age/Sex: 73/F [place] [facility] [place] Status: Signed Intake Vital Signs 12/12/23 11:28 03/31/24 10:16 Height 5 ft 1.5 in 5 ft 1.5 in Intake Visit Reasons: right shoulder Chief Complaint: Right shoulder post-op Is patient in pain?: No Allergies pseudoephedrine Allergy (Verified 04/13/24 13:00) Rapid Heart rate Medications ???Medication ???Instructions ???Recorded ???Confirmed ???Type levothyroxine 50 mcg tablet 50 mcg PO DAILY 10/03/13 04/13/24 History Prolia 60 mg/mL subcutaneous 60 mg subcut [id number] #1 mL 04/13/24 Rx syringe (denosumab) cholecalciferol (vitamin D3) 25 4,000 unit PO DAILY 04/03/2204/13 History mcg (1,000 unit) tablet ipratropium bromide 42 mcg (0.06 2 spray intranasal PRN 04/03/22 History %) nasal spray gabapentin 100 mg capsule 200 mg PO QHS 04/23/23 04/13/24 Hi story ropinirole 1 mg tablet 1 mg PO QHS #30 tabs 09/01/2303/21 Rx calcium 500 mg tablet 500 mg PO DAILY 03/17/24 04/13/24 History magnesium glycinate 100 mg (as 200 mg PO BID 03/17/24 04/13/24 Hi story glycinate) tablet (Mag Glycinate) ldpeenpodupm-blll-xfbhwbw s-folic 1 tab PO DAILY 03/17/24 04/13/24 H istory acid 400 mcg-biotin 100 mcg tablet omega 3 350 mg-dha 235 mg-epa 90 1 cap PO DAILY 03/17/24 04/13/24 H istory mg-fish oil 597 mg capsule,delay rel ([place]-3) turmeric 450 mg-turmeric root 1 cap PO DAILY 03/17/24 04/13/24 H istory extract 50 mg capsule vitamin B complex 1 tab PO DAILY 03/17/24 04/13/24 H istory Have you fallen in the past year?: No PFSH Medical History Wears hearing aid Wears glasses Post-menopausal Cancer History of steroid therapy Thyroid disease Arthritis Back pain Former smoker Leg cramps History of echocardiogram History of stress test Cardiology follow-up encounter History of irregular heartbeat Arthrosis of right acromioclavicular joint Right rotator cuff tear Impingement of right shoulder Right shoulder pain Laceration of right ring finger Osteoporosis Brain tumor Pericardial effusion Hypothyroidism GERD (gastroesophageal reflux disease) RLS (restless legs syndrome) Malignant neoplasm of colon Malignant neoplasm of kidney DDD (degenerative disc disease) Hyperlipidemia Premature ventricular contraction Premature atrial contractions Surgical History History of laparoscopic cholecystectomy Hx of basal cell carcinoma excision History of eyelid surgery History of cochlear implant History of vein stripping History of shoulder surgery History of tubal ligation History of hysterectomy History of tonsillectomy Family History Father CAD (coronary artery disease) Hx of CABG Mother History of permanent cardiac pacemaker placement Social History Smoking Status: Former smoker alcohol intake: current details: occasional HPI right shoulder Details: This documentation accurately reflects the service provided and the decisions made by me, Dr. Nirmal Head MD 04/13/24 4324. Part of today???s visit was documented by [ ], acting as scribe. AYESHA CASTREJON is a 73 year old F here today for 2 weeks FU Right shoulder arthroscopy, subacromial decompression, rotator cuff repair. Patient doing well she had her first physical therapy visit. It is moving around well she is little bit less apprehensive about doing some range of motion exercises. Keeping the incision clean and dry. Coding Level of Care Code Global Post Op Diagnoses Right rotator cuff tear M75.101 Assessment and Plan Assessment and Plan (1) Right rotator cuff tear: Status: Acute Plan: AYESHA CASTREJON is a 73 year old F here today for 2 weeks FU Right shoulder arthroscopy, subacromial decompression, rotator cuff repair. Patient doing well okay to discontinue the sling dressings removed okay to shower over top of the incisions work on gentle active and passive range of motion of the shoulder and follow-up in 4 weeks time the patient understands no further questions or concerns. Clinical Quality Measures Falls Risk Screening/Assistive Devices Have you fallen in the past year?: No Ortho Exam General General: Yes no acute distress Neurologic: Yes alert and Yes oriented x3 Psychologic: Yes reasonable and appropriate Right Shoulder Skin/Wound: Yes CDI, Yes healed (more content not included)... Normal [facility] Inital Evaluation (1) - PTon 04-12-2024 Inital Evaluation (1) - PT [facility] Physical Therapy [facility] [address] [facility] [address] [place] [address] / REHABILITATION SERVICES INITIAL EVALUATION MR#: [id number] Acct: [id number] Name: AYESHA CASTREJON Rep #: [id number] : 1950 73 From: Kg MOONT Referring Dr.: Dr. Nirmal Head MD Status: R EG RCR Insurance: MEDICARE PART A B ANTH Patient's Visit Information Visit Information Visit Information: AYESHA CASTREJON is a 73 year old F referred to Physical Therapy by Dr. Nirmal Head MD with a diagnosis of R RTC repair, DOS: 03/31/24. Date of Evaluation: 04/12/24 Physical Therapist: Kg Lockett DPT Visit Plan Frequency: 2-3x /Week Plan: 1) PROM of R shoulder progressing ER and flexion, scaption 2) ice as needed for pain control. Ok to add in elbow ROM and active strengthening. Subjective Subjective: Pt. is here today for her initial evaluation with diagnosis for R RTC repair and subacromial decompression. DOS: 03/31/24. pt. returns back to physician tomorrow. Pt. reports doing pendulums at home and some icing. Pt. is having some trouble with sleeping, but reports this is due to not getting comfortable. Pt. denies N/T in either UE. Pt. reports no fever or double vision. Pt. is hopeful to get back to all recreational activities without limitations. pt is no longer taking any pain medications. Pain R shoulder: Pain Intensity (Out of 10): 2 Pain Intensity Range: 0 and 6 Objective Objective: POSTURE: Pt. has decent shoulder positioning. Slight guarded posture of R shoulder. Pt. is able to complete shoulder shrugs without issues. PALPATION: Pt. has large bandage on her R shoulder. Pt. has no signs of infection. Pt. has tenderness at lateral shoulder. NEURO: normal sensation, normal DTR. ROM: R shoulder: PROM: ER 30deg, flexion 90deg, abd 75deg. extension not measured. Normal elbow flexion and extension. MMT: DNT due to recent surgery. Balance/Special Test Scores Quick DASH Score: 61.3625 Goals Goal 1:: LTG: Pt. to be I with HEP. Goal Time Frame: 4-6 Weeks Goal 2:: STG: Pt. to be able to sleep throughout the night. Goal Time Frame: 2 Weeks Goal 3:: LTG: Pt. to have full AROM of R shoulder without increase in R shoulder pain Goal Time Frame: 6-8 Weeks Goal 4:: LTG: Pt. to have increased R shoulder strength symmetrical to L side. Goal Time Frame: 8-12 Weeks Goal 5:: LTG: Pt. to complete all ADLs without increase in R shoulder pain. Goal Time Frame: 4-6 Weeks Rehabilitation Potential Physical Therapy Diagnosis: Pt. has signs and symptoms consistent with R RTC repair. Pt. has marked hypomobility, weakness and difficulty with all ADLs. Pt. would benefit from PT to address the above limitations progressing back to all recreational and work activities issues. Rehabilitation Potential: Excellent Anticipated Interventions Patient/Client Instruction: Educate patient on: Condition, Plan of Care, Risk Factors and Benefits of Fitness Program For the Purpose of:: To improve decision making, To facilitate caregiver knowledge, To improve self management, To prevent re-injury, To improve ability to perform tasks related to life management and To improve tolerance to ADL's Therapeutic Exercise to Include: Strength training, Power training, Endurance training, Postural training, Flexibilty training, Passive ROM, Active ROM and Scapular Strength/Stabilization For the Purpose of:: To decrease pain, To increase ROM, To improve nutrient delivery to tissue, To increase oxygenation perfusion, To improve muscle performance and motor function, To improve ability to perform ADL's, To increase flexibility/ROM and To improve endurance Manual Therapy Techniques to Include: Passive ROM and Soft tissue mobilization For the Purpose of:: To decrease pain, To increase ROM, To improve nutrient delivery to tissue, To increase oxygenation perfusion and To improve muscle performance and motor function IF ES: Yes Cryotherapy (ice pack, ice massage): Yes For the Purpose of:: To decrease pain, To decrease swelling/inflammation, To increase ROM, To improve nutrient delivery to tissue and To increase oxygenation perfusion Text: Thank you for the opportunity to evaluate your patient. For Medicare and Medicare HMO plans, please review the plan of care and approve it. It will need to be FAXED BACK to us at [phone] for Medicare purposes. For Medicare only, by signing this I certify the plan of care. Please let me know if there are questions or concerns regarding this plan of care. Physician Signature: Date: _ 04/12/241809 CC: Dr. Malvin Douglas MD; Dr. Nirmal Head MD CLS Signed Normal [facility] Orthopedic Visit Reporton Orthopedic Visit Report [facility] [address] [place] [address] OFFICE VISIT Date of Service: 04/05/24 MR#: [id number] Acct: [id number] Name: AYESHA CASTREJON Rep #: [id number] : 1950 Provider: Dr. Nirmal cabrera MD Age/Sex: 73/F [place] [facility] [place] Status: Signed Intake Vital Signs 12/12/23 11:28 03/31/24 10:16 Height 5 ft 1.5 in 5 ft 1.5 in Intake Visit Reasons: right shoulder Chief Complaint: Right shoulder post-op Is patient in pain?: Yes Allergies pseudoephedrine Allergy (Verified 04/05/24 12:59) Rapid Heart rate Medications ???Medication ???Instructions ???Recorded ???Confirmed ???Type levothyroxine 50 mcg tablet 50 mcg PO DAILY 10/03/13 04/05/24 History Prolia 60 mg/mL subcutaneous 60 mg subcut [id number] #1 mL 04/05/24 Rx syringe (denosumab) cholecalciferol (vitamin D3) 25 4,000 unit PO DAILY 04/03/2204/05 History mcg (1,000 unit) tablet ipratropium bromide 42 mcg (0.06 2 spray intranasal PRN 04/03/22 History %) nasal spray gabapentin 100 mg capsule 200 mg PO QHS 04/23/23 04/05/24 Hi story ropinirole 1 mg tablet 1 mg PO QHS #30 tabs 09/01/2303/20 Rx calcium 500 mg tablet 500 mg PO DAILY 03/17/24 04/05/24 History magnesium glycinate 100 mg (as 200 mg PO BID 03/17/24 04/05/24 Hi story glycinate) tablet (Mag Glycinate) kjonkzydamsb-mfqi-pvzjxkn s-folic 1 tab PO DAILY 03/17/24 04/05/24 H istory acid 400 mcg-biotin 100 mcg tablet omega 3 350 mg-dha 235 mg-epa 90 1 cap PO DAILY 03/17/24 04/05/24 H istory mg-fish oil 597 mg capsule,delay rel (Hartford-3) turmeric 450 mg-turmeric root 1 cap PO DAILY 03/17/24 04/05/24 H istory extract 50 mg capsule vitamin B complex 1 tab PO DAILY 03/17/24 04/05/24 H istory Have you fallen in the past year?: No PFSH Medical History Wears hearing aid Wears glasses Post-menopausal Cancer History of steroid therapy Thyroid disease Arthritis Back pain Former smoker Leg cramps History of echocardiogram History of stress test Cardiology follow-up encounter History of irregular heartbeat Arthrosis of right acromioclavicular joint Right rotator cuff tear Impingement of right shoulder Right shoulder pain Laceration of right ring finger Osteoporosis Brain tumor Pericardial effusion Hypothyroidism GERD (gastroesophageal reflux disease) RLS (restless legs syndrome) Malignant neoplasm of colon Malignant neoplasm of kidney DDD (degenerative disc disease) Hyperlipidemia Premature ventricular contraction Premature atrial contractions Surgical History History of laparoscopic cholecystectomy Hx of basal cell carcinoma excision History of eyelid surgery History of cochlear implant History of vein stripping History of shoulder surgery History of tubal ligation History of hysterectomy History of tonsillectomy Family History Father CAD (coronary artery disease) Hx of CABG Mother History of permanent cardiac pacemaker placement Social History Smoking Status: Former smoker alcohol intake: current details: occasional HPI right shoulder Details: This documentation accurately reflects the service provided and the decisions made by me, Dr. Nirmal Head MD 04/05/24 1030. Part of today???s visit was documented by [ ], acting as scribe. AYESHA CASTREJON is a 73 year old F here today for POD 5 Right shoulder arthroscopy, subacromial decompression, rotator cuff repair. Doing well pain settling down the block only worked for about 6 hours unfortunately. Coding Level of Care Code Global Post Op Diagnoses Right rotator cuff tear M75.101 Impingement of right shoulder M25.811 Arthrosis of right acromioclavicular joint M19.011 Assessment and Plan Assessment and Plan (1) Right rotator cuff tear: Status: Acute Plan: AYESHA CASTREJON is a 73 year old F here today for POD 5 Right shoulder arthroscopy, subacromial decompression, rotator cuff repair. Change dressing q1-2 days. Keep it dry. OK for pendulums. Start PT 2 weeks post op and FU then. (2) Impingement of right shoulder: Status: Acute (3) Arthrosis of right acromioclavicular joint: Status: Acute Orders: Referrals PT Referral M19.011 - Primary osteoarthritis, right shoulder, M25.811 - Other specified joint disorders, right shoulder, M75.101 - Unspecified rotator cuff tear or rupture of right shoulder, not specified as traumatic Clinical Quality Measures Falls Risk Screening/Assistive Devices Have you fallen in the past year?: No Ortho Exam General G (more content not included)... Normal [facility] Discharge Instructionon 03-20 Discharge Instruction [facility] Medical Records Department [address] [place] [address] Instructions for Home/Discharge Instructions 03/31/24 1503 MR#: [id number] Acct: [id number] Name: AYESHA CASTREJON Rep #: [id number] : 1950 73 From: Nirmal Head MD PCP: Dr. Malvin Douglas MD Status:REG [facility] Discharge Instructions Diet Discharge Diet: No restrictions Activity Ice area for (Minutes): 10 Lifting Restrictions: no lifting over 1 pound Additional Activity Instructions:: ok for pendulums 4x/day, hand wrist and elbow rom Dressing / Incision Call your doctor if your incision/area has: Continuous Slow Oozing, Sudden Increased Bleeding, Increased Pain/ Swelling, Increased Redness, Foul Smelling Discharge and Swelling at the incision site Call your doctor if you observe: Fever of 101 or Higher, Coldness, Increased Pain and Numbness or Tingling Change Dressing in: leave in place till F/U Cleanse incision/area with: Do not get Incision Wet Follow Up Care Please Follow Up With: Nirmal Head MD When: within 2 weeks Test Results: Test results from this visit will be discussed in further detail at your follow-up appointment, if applicable. Discharge Plan Admission Attending Provider: Nirmal Head Primary Care Provider: Malvin Douglas Consulting Providers: Catarino Connell Instructions Print Language: Faroese Discharge Orders/Prescriptions Prescriptions: New oxycodone-acetaminophen [Endocet] 5-325 mg tablet 1 tab PO Q6H MDD 6 PRN (Reason: pain) 5 Days Qty: 20 0RF No Action cholecalciferol (vitamin D3) 25 mcg (1,000 unit) tablet 4,000 unit PO DAILY ipratropium bromide 42 mcg (0.06 %) spray,non-aerosol 2 spray intranasal PRN Rx Instructions: administer into each nostril ropinirole 1 mg tablet 1 mg PO QHS Qty: 30 6RF gabapentin 100 mg capsule 200 mg PO QHS levothyroxine 50 MCG tablet 50 mcg PO DAILY Patient Comments: thyroid vitamin B complex Tablet 1 tab PO DAILY mv,iron,min-folic acid-biotin 400-100 mcg tablet 1 tab PO DAILY Hartford-3 350 mg-235 mg- 90 mg-597 mg capsule,delayed release(DR/EC) 1 cap PO DAILY calcium 500 mg tablet 500 mg PO DAILY Mag Glycinate 100 mg tablet 200 mg PO BID turmeric-turmeric root extract 450-50 mg capsule 1 cap PO DAILY Prolia 60 mg/mL syringe 60 mg SC [id number] Qty: 1 1RF Referrals / Follow Up: Malvin Douglas MD [Primary Care Provider] - Nirmal Head MD [Med Staff - Active Staff] - Disposition Disposition (needs filled in before D/C Order can be placed): Home, Self Care 03/31/24 1505 Nirmal Head MD CC: Dr. Catarino Connell MD; Dr. Malvin Douglas MD Signed [facility] MR/POSTOP.[facility] 03-31-2024 MR/POSTOP.[facility] Medical Records Department [address] [place] [address] Anesthesia Postop Eval I 03/31/24 1508 MR#: [id number] Acct: [id number] Name: AYESHA CASTREJON Rep #: [id number] : 1950 73 From: Emanuel Elder CRNA PCP: Dr. Malvin Douglas MD Status:REG [facility] Y Race: C Location: [place] [address] Anesthesia: Postop Eval I Current Vital Signs Temperature: 97.6 F Pulse Rate: 83 Blood Pressure: 147/83 Respiratory Rate: 14 Pulse Ox: 98 Oxygen Delivery Method: Nasal Cannula Oxygen Flow Rate (L/min): 3 Assessment Airway patent: Yes Spontaneous unlabored respirations: Yes Mental status: Awake and Calm nausea: No Vomiting: No Anesthesia Complication: No Fluid Hydration Crystalloid volume administer (ml): 1,000 Total IV fluid infused: 1,000 Progress Note Anesthesia document: Postop Eval 1 completed: Yes 03/31/24 1509 Date Emanuel Elder MACHINE LEARNING INTERN Cosigner Signature: Date CC: Signed Normal [facility] MR/[id number] 03-31-2024 MR/POSTOPAN2 [facility] Medical Records Department [address] [place] [address] Anesthesia Postop Eval II 03/31/24 1557 MR#: [id number] Acct: [id number] Name: AYESHA CASTREJON Rep #: [id number] : 1950 73 From: Miah May MD PCP: Dr. Malvin Douglas MD Status:REG [facility] Y Race: C Location: [address] Anesthesia Postop Eval I Sum Postop Eval Completion status Anesthesia document: Postop Eval 1 completed: Yes Anesthesia Postop Eval I Summary Anesthesia Postop Eval I Summary: Anesthesia Postop Eval I: Assessment Summary Airway patent Yes 03/31/24 15:09 MACHINE LEARNING INTERN.JRIV Spontaneous unlabored Yes 03/31/24 15:09 MACHINE LEARNING INTERN.JRIV respirations Mental status Awake,Calm 03/31/24 15:09 MACHINE LEARNING INTERN.JRIV nausea No 03/31/24 15:09 MACHINE LEARNING INTERN.JRIV Vomiting No 03/31/24 15:09 MACHINE LEARNING INTERN.JRIV Anesthesia Postop Eval I: Fluid Summary Crystalloid volume administer 1,000 03/31/24 15:09 MACHINE LEARNING INTERN.JRIV (ml) Colloids volume administered ( ml) Blood Product volume administered (ml) Total IV fluid infused 1,000 03/31/24 15:09 MACHINE LEARNING INTERN.JRIV Anesthesia Postop Eval I: Summary Notes Anesthesia Complication No 03/31/24 15:09 MACHINE LEARNING INTERN.JRIV Anesthesia Complication Comment: Post-operative progress note Anesthesia: Postop Eval II Evaluation Mental status: Awake Pain Level: 0 nausea: No Vomiting: No 03/31/24 1558 Date Miah May MD Cosigner Signature: Date CC: Signed Normal [facility] Operative Reporton 5 Operative Report [facility] Medical Records Department [address] [place] [address] Operative Report 03/31/24 1456 MR#: [id number] Acct: [id number] Name: AYESHA CASTREJON Rep #: [id number] : 1950 73 From: Nirmal Head MD PCP: Dr. Malvin Douglas MD Status:REG [facility] Location: [place] [address] Problems Associated Problem List Diagnoses (1) Right rotator cuff tear: (2) Impingement of right shoulder: Procedures Musculoskeletal 20xxx-29xxx: Other Procedure See Report Operative Report (Standard) Operative Information Date of Procedure: 03/31/24 Pre-Operative Diagnosis: Right shoulder impingement syndrome and rotator cuff tear Post-Operative Diagnosis: Same Surgery/Procedure Performed: Right shoulder arthroscopy, subacromial decompression, rotator cuff repair hostel parent: Yes Outside Machinist: car Tasks completed by assisted living associate: Retracting Additional housekeeper and laundry assistant?: No Type of Anesthesia: Block,Regional and General RN Documented Start/Stop Times: Operation Date: 03/31/24 11:40 Case Time Into Pre-Op 03/31/24 09:55 Anesthesia Start 03/31/24 13:46 Into Room 03/31/24 13:46 Procedure Start 03/31/24 14:14 Procedure End 03/31/24 14:48 Procedure Start Time: 14:14 Procedure Stop Time: 14:48 Select all DRAINS/GRAFTS/IMPLANTS that apply: Implanted device Implanted device details: arthrex knotless fiber tack anchors and 4.75mm swivelock Estimated Blood Loss: 20 Specimen collected: No Description of surgery: Patient was brought to the operating room theater. They were administered 2 g of IV Ancef prior to the start of the procedure. Placed supine on the operating room table. General anesthesia induced. Patient placed right side up lateral decubitus with the aid of the beanbag positioner. Axillary roll was used all bony prominences padded. SCDs on the legs. Operative extremity prepped and draped in the usual sterile fashion with chlorhexidine-based prep solution allowing over 3 minutes drying time prior to draping. 10 pounds of inline traction with the arm in 30 degrees of abduction was used. Preoperative timeout performed to confirm the site patient and the surgery. I began by inserting the arthroscope into the intra-articular portion of the shoulder through a standard arthroscopic posterior portal. Cartilage on the glenoid and humeral head was very good, normal, slight fraying of the labrum. Axillary recess was normal. Biceps frayed but intact, no synovisit, so left alone. I made an inside-out anterior portal through the rotator interval using spinal needle localization. Undersurface junction between SS and IS suspicious for the delaminated portion, so I marked that with spinal needle. Next I placed the arthroscope into the subacromial space. Identified the previously marked area there was indeed delaminated tear between the supraspinatus and infraspinatus. Identified the tearing area. I used a spinal needle and a probe to try and identify this. I decided on a trance tendon approach to repair the tendon. I used the Arthrex trans tendon fiber tack knotless all suture anchors. I placed 1 anteriorly and 1 posteriorly to the tear just off the articular margin medial to the tear. I set the anchors. I used the repair suture from each anchor to pass to the other anchor and then converted the sutures and using the knotless mechanism created a [id number]-[id number] repair with 2 sutures. I then took these 2 sutures out laterally and placed him into a 4.75 mm Arthrex bio composite swivel lock anchor and attach this firmly all suture anchors got very good purchase and I cut the suture short. This was a triangular configuration at the tear site. Very solid repair and good bone. Subcutaneous tissue closed with 3-0 Monocryl. Steri-Strips were applied after the skin was cleaned and dried. Adaptic gauze abdominal pad dressings and tape was then applied with a sling to the upper extremity. Patient woken up from general anesthetic transferred off the operating room table and taken to postanesthetic care unit in stable condition. All sponge needle instrument counts were correct no complications. Plan for the patient to be discharged home according to day surgery criteria when they are comfortable. Appropriate narcotic counseling given and follow-up in the office in 2 days time. Range of motion will be pendulum exercises as well as hand wrist and elbow exercises 4 times a day. cpt [address]61, [address] Surgical Findings: As above. Complications Complications: No Admit VTE Documentation VTE Present on Admission: No VTE Mechan Device Prophylaxis: SCD's VTE Pharm Prophylaxis ordered?: No Reason prophylaxis not ordered: Treatment Not Indicated 03/31/24 1501 Cosigner Signature (if applicable): CC: Dr. Catarino Connell MD; Dr. Malvin Douglas MD; Dr. Nirmal Head MD Signed Normal [facility] Thyroid Peroxidase ABon 02-0 THYR PEROX AB 10 IU/mL Normal 0-34 [facility] Comment on above: Order Comment: PER I NTERFACE COMMENT-AMAB Result Comment: Perf ormed at: - [facility] [address] [id number] Washer Blanket: Adam Regalado PhD, Phone: [phone] Performed By: #### L 2539.1242 ####[facility] [address] [place], [address] 12 Lead EKGon 03-19-2024 12 Lead EKG [facility] Cardiovascular Services [address] [place] [address] 12 Lead EKG 03/19/24 0844 MR#: [id number] Acct: [id number] Name: AYESHA CASTREJON Rep #: [id number] : 1950 73 From: Panfilo Lyon MD Attending Dr: Dr. Nirmal Head MD Status: [place] E [facility] Ordering Dr: Catarino Connell MD Date: 03/19/24 Location: [facility] Sex: F C Admitted: Test Reason : PREOP Blood Pressure : */* mmHG Vent. Rate : 67 BPM Atrial Rate : 67 BPM P-R Int : 172 ms QRS Dur : 84 ms QT Int : 406 ms P-R-T Axes : 59 22 61 degrees QTcB Int : 429 ms Normal sinus rhythm Normal ECG Confirmed by TRINO CAIN, PANFILO ([id number]), market editor DAMIAN SHAFFER ([id number]) on 03/22/2024 6:08:31 AM Referred By: Nirmal Head Confirmed By: PANFILO LYON MD 03/22/24 0608 Date Panfilo Lyon MD CC: Dr. Catarino Connell MD; Dr. Malvin Douglas MD; Dr. Nirmal Head MD Signed Normal [facility] Basic Metabolic Profile (BMP )on 03-19-2024 BUN/CRE 30.0 RATIO High 10-20 [facility] Comment on above: Performed By: #### L 501.9520, L100.0100, L500.2500 ####[facility] [address] [place], [address] CA,Total 8.8 mg/dL Normal 8.5-10.1 [facility] Comment on above: Performed By: #### L 501.9520, L100.0100, L500.2500 ####[facility] [address] [place], [address] Chloride [Moles/Vol] 109 mmol/L High 98-[address] [facility] Comment on above: Performed By: #### L 501.9520, L100.0100, L500.2500 ####[facility] [address] [place], [address] CO2 [Moles/Vol] 28.0 mmol/L Normal 21.0-32.0 [facility] Comment on above: Performed By: #### L 501.9520, L100.0100, L500.2500 ####[facility] [address] [place], [address] Creatinine [Mass/Vol] 0.70 mg/dL Normal 0.55-1.02 [facility] Comment on above: Result Comment: The validity of the calculated GFR GFRAA in patients over 70 years has not been determined. Clinical correlation is essential. Performed By: #### L 501.9520, L100.0100, L500.2500 ####[facility] [address] [place], [address] EST GFR - AA 105 mL/min Normal >60 [facility] Comment on above: Result Comment: Afri can Jamaican GFR Calc Performed By: #### L 501.9520, L100.0100, L500.2500 ####[facility] [address] [place], [address] GAP 5 Normal 5-15 [facility] Comment on above: Performed By: #### L 501.9520, L100.0100, L500.2500 ####[facility] [address] [place], [address] GFR/1.73 sq M.predicted among non-blacks MDRD (S/P/Bld) [Vol rate/Area] 87 mL/min/{1.73_m2} Normal >60 [facility] Comment on above: Result Comment: Non- GFR Calc Performed By: #### L 501.9520, L100.0100, L500.2500 ####[facility] [address] [place], [address] Glucose [Mass/Vol] 92 mg/dL Normal 74-106 [facility] Comment on above: Performed By: #### L 501.9520, L100.0100, L500.2500 ####[facility] [address] [place], [address] Potassium [Moles/Vol] 3.8 mmol/L Normal 3.5-5.1 [facility] Comment on above: Performed By: #### L 501.9520, L100.0100, L500.2500 ####[facility] [address] [place], [address] Sodium [Moles/Vol] 141 mmol/L Normal 136-145 [facility] Comment on above: Performed By: #### L 501.9520, L100.0100, L500.2500 ####[facility] [address] [place], [address] Urea nitrogen [Mass/Vol] 21 mg/dL High 7-18 [facility] Comment on above: Performed By: #### L 501.9520, L100.0100, L500.2500 ####[facility] [address] [place], [address] CBC W/Diff, Automatedon 01-3 Absolute Lymph 1.26 X10 3/uL Normal 0.83-4.51 [facility] Comment on above: Performed By: #### L 501.9520, L100.0100, L500.2500 ####[facility] [address] [place], [address] Absolute Neut 1.9 X10 3/uL Low 2.0-7.7 [facility] Comment on above: Performed By: #### L 501.9520, L100.0100, L500.2500 ####[facility] [address] [place], [address] Basophils/100 WBC (Bld) 0.8 % Normal 0-1 [facility] Comment on above: Performed By: #### L 501.9520, L100.0100, L500.2500 ####[facility] [address] [place], [address] Eosinophils/100 WBC (Bld) 5.4 % High 0-5 [facility] Comment on above: Performed By: #### L 501.9520, L100.0100, L500.2500 ####[facility] [address] [place], [address] Erythrocyte distribution width (RBC) [Ratio] 12.7 % Normal 11.6-14.6 [facility] Comment on above: Performed By: #### L 501.9520, L100.0100, L500.2500 ####[facility] [address] [place], [address] Hematocrit (Bld) [Volume fraction] 36.8 % Low 37-47 [facility] Comment on above: Performed By: #### L 501.9520, L100.0100, L500.2500 ####[facility] [address] [place], [address] Hemoglobin (Bld) [Mass/Vol] 12.3 g/dL Normal 12.0-15.0 [facility] Comment on above: Performed By: #### L 501.9520, L100.0100, L500.2500 ####[facility] [address] [place], [address] IG% 0.300 Normal 0.0-0.9 [facility] Comment on above: Result Comment: IG% - Immature Granulocytes (promyelocytes, myelocytes and metamyelocytes) > 1% indicates that a LEFT SHIFT is Present. Performed By: #### L 501.9520, L100.0100, L500.2500 ####[facility] [address] [place], [address] Lymphocytes/100 WBC (Bld) 33.8 % Normal 19-41 [facility] Comment on above: Performed By: #### L 501.9520, L100.0100, L500.2500 ####[facility] [address] [place], [address] MCH (RBC) [Entitic mass] 31.5 pg Normal 27.0-32.0 [facility] Comment on above: Performed By: #### L 501.9520, L100.0100, L500.2500 ####[facility] [address] [place], [address] MCHC (RBC) [Mass/Vol] 33.4 g/dL Normal 32-36 [facility] Comment on above: Performed By: #### L 501.9520, L100.0100, L500.2500 ####[facility] [address] [place], [address] MCV (RBC) [Entitic vol] 94.4 fL Normal 81-99 [facility] Comment on above: Performed By: #### L 501.9520, L100.0100, L500.2500 ####[facility] [address] [place], [address] Monocytes/100 WBC (Bld) 10.2 % High 0-10 [facility] Comment on above: Performed By: #### L 501.9520, L100.0100, L500.2500 ####[facility] [address] [place], [address] Neutrophils/100 WBC (Bld) 49.5 % Normal 47-70 [facility] Comment on above: Performed By: #### L 501.9520, L100.0100, L500.2500 ####[facility] [address] [place], [address] Nucleated RBC (Bld) [#/Vol] 0 10*3/uL Normal 0-5 [facility] Comment on above: Performed By: #### L 501.9520, L100.0100, L500.2500 ####[facility] [address] [place], [address] Platelet mean volume (Bld) [Entitic vol] 8.8 fL Normal 6.2-12.0 [facility] Comment on above: Performed By: #### L 501.9520, L100.0100, L500.2500 ####[facility] [address] [place], [address] Platelets (Bld) [#/Vol] 256 10*3/uL Normal 150-450 [facility] Comment on above: Performed By: #### L 501.9520, L100.0100, L500.2500 ####[facility] [address] [place], [address] RBC (Bld) [#/Vol] 3.90 10*6/uL Low 4.2-5.4 [facility] Comment on above: Performed By: #### L 501.9520, L100.0100, L500.2500 ####[facility] [address] [place], [address] RDW SD 44.1 fl High 35.1-43.9 [facility] Comment on above: Performed By: #### L 501.9520, L100.0100, L500.2500 ####[facility] [address] [place], [address] WBC (Bld) [#/Vol] 3.7 10*3/uL Low 4.4-11.0 [facility] Comment on above: Performed By: #### L 501.9520, L100.0100, L500.2500 ####[facility] [address] [place], [address] Thyroid Stim Hormone (TSH)on 03-19-2024 TSH 2.410 uIU/mL Normal 0.358-3.74 0 [facility] Comment on above: Performed By: #### L 501.9520, L100.0100, L500.2500 ####[facility] [address] [place], [address] Free T3on 03-18-2024 Free T3 [Mass/Vol] 2.4 pg/mL Normal 2.18-3.98 [facility] Comment on above: Order Comment: PER I NTERFACE COMMENT-AMABOrder Date: 03/18/24Order Info: 3051-0 - [id number] Info: [id number] - TSHOrder Info: 3024-7 - T4F Performed By: #### L 501.9520, L506.0400, L501.38294 ####[facility] [address] [place], [address] T4 Free Directon 03-18-2024 T4 FREE DIRECT 1.30 ng/dL Normal 0.76-1.46 [facility] Comment on above: Order Comment: Order Date: 09/05/23 Order Info: [id number] - LIPID Order Date: 06/12/23 Order Info: 3024-7 - T4F Performed By: #### L 100.0100, L506.1000, L503.6550, L503.0105, L503.6150, L501.9520, L500.4050 #### [facility] [address] [place], [place], [address] Thyroid Stim Hormone (TSH)on 03-18-2024 TSH 1.720 uIU/mL Normal 0.358-3.74 0 [facility] Comment on above: Order Comment: Order Date: 09/05/23 Order Info: [id number] - LIPID Order Date: 06/12/23 Order Info: 3024-7 - T4F Performed By: #### L 100.0100, L506.1000, L503.6550, L503.0105, L503.6150, L501.9520, L500.4050 #### [facility] [address] [place], [place], [id number] CNPNon 03-03-[address] [facility] ----- AYESHA CASTREJON ([id number]) 1950 F Date Time Provider Department 03/03/24 DEMARCO VOGEL OBAIDA During your visit today, we recorded the following information about you: Nayana Wiggins, DILLAN 03/03/2024 10:05 AM Signed Patient seen in office yesterday for a pessary fitting. States that her pessary moved last night and she tried to reposition it. The pessary was vertical and she was unable to push it back in place. Took her 3 tries to remove it. After removal she had quite a bit of bleeding. No bleeding now. Feels irritated with some burning when she urinates. Please advise. DILLAN Booth Rebecca L, MD 03/03/2024 11:05 AM Signed I am sorry that this didn't work out. If that one shifted to vertical, a larger one will not work and a smaller one will likely fall out. Unfortunately, I am not sure a pessary will work well for her unless we consider one that suctions in and that will be more uncomfortable to remove and have to be removed in the office. THe bleeding is from the trauma from removal and I am sorry about that. She can soak in some plain warm water if she is sore or use cool pack to her perineal are prn. At this point if would like further eval or discuss surger would refer to [facility] urogyn. MD Romulo Hopkins Tara, RN 03/03/2024 12:20 PM Signed Pt notified. Pt asking about what your thoughts are on medication for overactive bladder as she is open to that. Pt is not certain she is ready to do surgery at this point. (When calling Pt back, may leave a message if unable to reach her). Demarco Vogel MD 03/03/2024 1:34 PM Signed yes, will send rx, if not helpful would talk w/ Dr. Mullen again. MD Romulo Hopkins Tara, RN 03/03/2024 2:07 PM Signed Pt notified and voiced understanding. Pablo Mccormick RN Allergies As of Date: 03/03/2024 Noted Allergy Reaction FLEXERIL (CYCLOBENZAPRINE HCL) 03/01/2005 5 - Intolerance Comments: retain water FOSAMAX (ALENDRONATE SODIUM) 03/01/2005 5 - Intolerance Comments: head ache ZANTAC (RANITIDINE HCL) 03/01/2005 5 - Intolerance Comments: retain water Date Reviewed: 03/02/2024 Reviewed by: Demarco Vogel MD - Fully Assessed Reason for Visit: Pessary [345] Primary Visit Diagnosis:Overactive bladder [N32.81] Order(s):tolterodine ER (DETROL LA) 4 mg 24 hr capsuleTake 1 capsule by mouth once daily.Disp: 30 capsuleRfl: 4 Prescriptions as of 03/03/2024 - tolterodine ER (DETROL LA) 4 mg 24 hr capsule Take 1 capsule by mouth once daily. - citalopram hydrobromide (CELEXA) 10 mg tablet Take 1 tablet by mouth every afternoon. - VITAMIN B COMPLEX ORAL Take by mouth. - MAGNESIUM GLYCINATE ORAL Take by mouth. - RASPBERRY, RED Tressa tea-has red raspberry leaf- nettle-oat straw - celecoxib (CELEBREX) 200 mg capsule Take 200 mg by mouth once daily. - gabapentin (NEURONTIN) 100 mg capsule Take 1 capsule by mouth two times a day as needed. - omeprazole (PRILOSEC) 40 mg capsule Take 1 capsule by mouth once daily. - terbinafine HCl (LAMISIL) 250 mg tablet Take 1 tablet by mouth once daily. - calcium carbonate (OYSTER SHELL CALCIUM ORAL) Take 1,250 mg by mouth once daily. - rOPINIRole (REQUIP) 0.5 mg tablet Take 0.5 mg by mouth daily at bedtime. Takes 1 MG by mouth daily - denosumab (PROLIA SUBCUTANEOUS) Inject 60 mg/mL subcutaneously once every 6 months. - cetirizine HCl (ZYRTEC ORAL) Take by mouth once daily as needed. - fluticasone (FLONASE) 50 mcg/actuation nasal spray Use 1 [place] in each nostril as needed. - TURMERIC ORAL Take by mouth once daily. - levothyroxine 50 mcg tablet Take 1 tablet by mouth once daily. - CHOLECALCIFEROL, VITAMIN D3, (VITAMIN D-3 ORAL) Take 2,000 Units by mouth once daily. 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 Encounter Status:Closed by PABLO MCCORMICK on 03/03/24 [facility] CNOVon 03-02-2024 CNOV Office Visit (OBGYWM ) ----- AYESHA CASTREJON ([id number]) 1950 F Date Time Provider Department 03/02/24 3:20 PM DEMARCO VOGEL OBGYWM During your visit today, we recorded the following information about you: Blood pressure Weight 134/82 54.4 kg Demarco Vogel MD 03/03/2024 5:02 PM Signed 73 year old female presents for a pessary fitting due to prolapse. She has not had vaginal discharge and bleeding. She does not use her prescribed estrogen cream. Exam: Cysto and Recto. No bleeding or vaginal irritation seen. Pelvic: A size 2 ring with support was placed without difficulty. Have also tried a size 3 ring with support - was too large Impression/plan:cystocele 1) Advised of need to remove it if has diffulties emptying her bladder/bowel. Patient advised to remove and clean with warm water and soap every week. Will return to clinic in 4-6 weeks for f/u evaluation. Discussed pros/cons pessary. Demarco Vogel MD Allergies As of Date: 03/02/2024 Noted Allergy Reaction FLEXERIL (CYCLOBENZAPRINE HCL) 03/01/2005 5 - Intolerance Comments: retain water FOSAMAX (ALENDRONATE SODIUM) 03/01/2005 5 - Intolerance Comments: head ache ZANTAC (RANITIDINE HCL) 03/01/2005 5 - Intolerance Comments: retain water Date Reviewed: 03/02/2024 Reviewed by: Demarco Vogel MD - Fully Assessed Reason for Visit: Pessary [345] Cmt: fitting Primary Visit Diagnosis:Cystocele, midline [N81.11] Other Visit Diagnosis:Urinary frequency [R35.0] Prescriptions as of 03/03/2024 - tolterodine ER (DETROL LA) 4 mg 24 hr capsule Take 1 capsule by mouth once daily. - citalopram hydrobromide (CELEXA) 10 mg tablet Take 1 tablet by mouth every afternoon. - VITAMIN B COMPLEX ORAL Take by mouth. - MAGNESIUM GLYCINATE ORAL Take by mouth. - RASPBERRY, RED Tressa tea-has red raspberry leaf- nettle-oat straw - celecoxib (CELEBREX) 200 mg capsule Take 200 mg by mouth once daily. - gabapentin (NEURONTIN) 100 mg capsule Take 1 capsule by mouth two times a day as needed. - omeprazole (PRILOSEC) 40 mg capsule Take 1 capsule by mouth once daily. - terbinafine HCl (LAMISIL) 250 mg tablet Take 1 tablet by mouth once daily. - calcium carbonate (OYSTER SHELL CALCIUM ORAL) Take 1,250 mg by mouth once daily. - rOPINIRole (REQUIP) 0.5 mg tablet Take 0.5 mg by mouth daily at bedtime. Takes 1 MG by mouth daily - denosumab (PROLIA SUBCUTANEOUS) Inject 60 mg/mL subcutaneously once every 6 months. - cetirizine HCl (ZYRTEC ORAL) Take by mouth once daily as needed. - fluticasone (FLONASE) 50 mcg/actuation nasal spray Use 1 [address] in each nostril as needed. - TURMERIC ORAL Take by mouth once daily. - levothyroxine 50 mcg tablet Take 1 tablet by mouth once daily. - CHOLECALCIFEROL, VITAMIN D3, (VITAMIN D-3 ORAL) Take 2,000 Units by mouth once daily. 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] 08/05/2005 FAMILY HX GI MALIGNANCY [Z80.0] INT HEMORRHOID W/O COMPL [K64.8] BENIGN SUNITHA CRANIAL NERVE [D33.3] 03/08/2008 SENSORNEUR HEAR LOSS UNI [H90.5] 03/08/2008 Diffuse cystic mastopathy [N60.19] 02/03/2011 Esophagitis, unspecified [K20.90] 07/25/2011 Osteopenia [M85.80] 01/23/2012 Cholecystitis, unspecified [K81.9] 10/07/2013 Encounter Status:Closed by DEMARCO VOGEL on 03/03/24 [facility] CNOVon 02-26-2024 CNOV Office Visit (OBGYWM ) ----- AYESHA CASTREJON ([id number]) 1950 F Date Time Provider Department 02/26/24 9:40 AM DEMARCO VOGEL OBGYWM During your visit today, we recorded the following information about you: Blood pressure Weight Height 124/78 54.4 kg 1.524 m Demarco Vgoel MD 02/26/2024 10:23 AM Signed Ayesha is a 73 year old who presents for an annual gynecologic exam without complaints. Postmenopausal: yes never on hormones other than vaginal estrogen. S/p hysterectomy for fibroids, benign. Ovaries remain> No vaginal bleeding. Not currently sexually active OB History T0 L2 SAB0 IAB0 Ectopic0 Multiple0 Live Births0 Comment: 2 vaginal deliveries [facility] History LMP: Hysterectomy Age at Menarche: Age at First : Age at Menopause: [facility] History Comments: Sexual Activity: Not Currently; Male; hysterectomy-fibroids Contraception: Surgical PAST MEDICAL HISTORY Diagnosis Date Arrhythmia Arthritis [...] - family history 5 year follow up COLONOSCOPY SCREENING 11/2023 DILATION AND CURETTAGE DXAND/THER NONOBSTETRIC Dilation AND curettage ESOPHAGOGASTRODUODENOSCOP Y TRANSORAL DIAGNOSTIC 07/25/2011 EGD INNER EAR SURGERY [...] SKIN BIOPSY HX TONSILLECTOMY HX TONSILLECTOMY PRIMARY/SECONDARY Tonsillectomy TOTAL ABDOMINAL HYSTERECT W/WO RMVL TUBE OVARY 1985 Hysterectomy, YELENA- fibroids VASCULAR SURGERY PROCEDURE FAMILY HISTORY Problem Relation Age of Onset Cancer Mother thyroid, renal cell cancer, brain cancer Colon Cancer Father colon COPD Sister other (Rheumatoid arthtrisits) Sister Blood Clots Sister COPD Sister other (rheumatoid arthritis) Sister other (polyps) Brother colon polyps No Known Problems Maternal Grandmother No Known Problems Maternal Grandfather No Known Problems Paternal Grandmother Tuberculosis Paternal Grandfather SOCIAL HISTORY Social History Tobacco Use Smoking status: Former Smokeless tobacco: Never Tobacco comments: 1976 Vaping Use Vaping status: Never Used Substance Use Topics Alcohol use: Not Currently Comment: very rare Drug use: No REVIEW OF SYSTEMS Abdomen: IBS Bladder: No dysuria, gross hematuria, urinary frequency, urinary urgency, or incontinence SENSITIVE EXAM: The sensitive examination was discussed with the Patient or Patient's Authorized Tape Recorder Repairer. As applicable, any other physician, advance practice provider, medical student, or other health professional student that will be observing or involved in the sensitive examination for educational or training purposes was discussed with the Patient or Authorized Tape Recorder Repairer. The Patient or Authorized Tape Recorder Repairer has agreed to proceed with the sensitive examination. (Sensitive examination includes inspection and/or palpation of the breasts, pelvis, prostate and anorectal regions). EXAM: BP 124/78 Ht 5' 0 (1.52m) Wt 120 lb (54.4kg) BMI 23.44 kg/(m2). GENERAL: pleasant, female in no apparent distress HEENT: Normocephalic, atraumatic, mucus membranes moist, and no lesions BREAST: soft, non-tender, symmetric, no dominant mass, normal nipple-areolar complex, no lymphadenopathy, and no nipple discharge CHEST: Normal inspiratory effort ABDOMEN: soft, non-tender, and no masses PELVIC: external genitalia normal, normal Bartholin's glands, urethra, [place]'s glands, no vulvar lesions, mild cystocele and rectocele, physiologic discharge present, normal appearing perineal body and perianal region, cervix surgically absent, atrophic flattened epithelium BIMANUAL: no adnexal masses, non-tender, and uterus surgically absent ASSESSMENT/PLAN: 1) Health maintenance: Pap/HPV screening no longe (more content not included)... Normal [facility] Orthopedic Visit Reporton Orthopedic Visit Report [facility] [address] [place] [address] OFFICE VISIT Date of Service: 02/13/24 MR#: [id number] Acct: [id number] Name: AYESHA CASTREJON Rep #: [id number] : 1950 Provider: Dr. Nirmal cabrera MD Age/Sex: 73/F [place] [facility] [place] Status: Signed Intake Vital Signs 12/12/23 11:28 Height 5 ft 1.5 in Intake Visit Reasons: RIGHT SHOULDER Chief Complaint: Right Shoulder Follow-Up Is patient in pain?: Yes (right shoulder) Pain scale (1-10): 5 Allergies pseudoephedrine Allergy (Verified 02/13/24 10:44) Rapid Heart rate Medications ???Medication ???Instructions ???Recorded ???Confirmed ???Type levothyroxine 50 mcg tablet 50 mcg PO DAILY 10/03/13 02/13/24 History vitamins B1 B6 B12 tablet 1 tab PO DAILY 10/20/20 02/13/24 History Prolia 60 mg/mL subcutaneous 60 mg subcut [id number] #1 mL 09/17/21 02/13/24 Rx syringe (denosumab) cholecalciferol (vitamin D3) 25 4,000 unit PO DAILY 04/03/22 02/13/24 History mcg (1,000 unit) tablet ipratropium bromide 42 mcg (0.06 2 spray intranasal .q8 04/03/22 02/13/24 History %) nasal spray omeprazole 40 mg capsule,delayed 40 mg PO DAILY 04/03/22 02/13/24 History release gabapentin 100 mg capsule 200 mg PO QHS 04/23/23 02/13/24 History ropinirole 1 mg tablet 1 mg PO QHS #30 tabs 09/01/23 02/13/24 Rx celecoxib 200 mg capsule 200 mg PO DAILY 09/15/23 02/13/24 History terbinafine HCl 250 mg tablet 250 mg PO DAILY 09/15/23 02/13/24 History citalopram 10 mg tablet 10 mg PO QDAY 02/13/24 02/13/24 History Have you fallen in the past year?: No PFSH Medical History Arthrosis of right acromioclavicular joint Right rotator cuff tear Impingement of right shoulder Right shoulder pain Laceration of right ring finger Osteoporosis Brain tumor Pericardial effusion Hypothyroidism GERD (gastroesophageal reflux disease) RLS (restless legs syndrome) Malignant neoplasm of colon Malignant neoplasm of kidney DDD (degenerative disc disease) Hyperlipidemia Premature ventricular contraction Premature atrial contractions Surgical History Hx of basal cell carcinoma excision History of eyelid surgery History of cochlear implant History of vein stripping History of shoulder surgery History of tubal ligation History of hysterectomy History of tonsillectomy Family History Father CAD (coronary artery disease) Hx of CABG Mother History of permanent cardiac pacemaker placement Social History Smoking Status: Never smoker alcohol intake: current details: occasional HPI RIGHT SHOULDER Details: This documentation accurately reflects the service provided and the decisions made by me, Dr. Nirmal Head MD 02/13/24 1013. Part of today???s visit was documented by [ ], acting as scribe. AYESHA CASTREJON is a 73 year old F here today for follow-up right shoulder pain and rotator cuff tear. Coding Level of Care Code Off vis,est,level 3 Diagnoses Arthrosis of right acromioclavicular joint M19.011 Right rotator cuff tear M75.101 Impingement of right shoulder M25.811 Right shoulder pain M25.511 Assessment and Plan Assessment and Plan (1) Arthrosis of right acromioclavicular joint: Status: Acute Plan: 73 F with R shoulder MRI evidence of linear interstitial/delaminating tear of the conjoined distal supraspinatus/infraspinat us tendon junction, measuring 1.7 cm in length. Also has mild hypertrophic acromioclavicular arthrosis (neg cross body and no pain at ACJ so will not do DCE), and mild subacromial-subdeltoid bursitis. Patient counseled on the diagnosis prognosis different treatment options available including but not limited to rest ice anti-inflammatories activity modifications doing nothing repeat cortisone injection as well as surgery including right shoulder arthroscopy subacromial decompression rotator cuff repair. Patient wishes to go ahead with surgery signed the consent form today no further questions or concerns. Pros and cons risks and benefits were discussed with the patient including but not limited to infection, pain, stiffness, bleeding, damage to surrounding structures, neurovascular injury, recu rrence or retear, failure or wear of hardware or fixation, instability, fracture, deep vein thrombosis and pulmonary embolism, anesthetic risks, , patient dissatisfaction, need for further surgery and other risks. Patient understood and wished to proceed with surgery, and signed the informed consent documentation. (2) Right rotator cuff tear: Status: Acute (3) Impingement of right shoulder: Status: (more content not included)... Normal [facility] Orthopedic Visit Reporton Orthopedic Visit Report [facility] [address] [place] [address] OFFICE VISIT Date of Service: 02/05/24 MR#: [id number] Acct: [id number] Name: LUCÍAEDAYESHA M Rep #: [id number] : 1950 Provider: Dr. Nirmal cabrera MD Age/Sex: 73/F [place] [facility] Status: Signed Intake Vital Signs 12/12/23 11:28 Height 5 ft 1.5 in Intake Visit Reasons: RIGHT SHOULDER Chief Complaint: Right Shoulder Follow-Up Accompanied by: Self Is patient in pain?: No Allergies pseudoephedrine Allergy (Verified 02/05/24 09:51) Rapid Heart rate Medications ???Medication ???Instructions ???Recorded ???Confirmed ???Type levothyroxine 50 mcg tablet 50 mcg PO DAILY 10/03/13 02/05/24 History vitamins B1 B6 B12 tablet 1 tab PO DAILY 10/20/20 02/05/24 History Prolia 60 mg/mL subcutaneous 60 mg subcut [id number] #1 mL 09/17/21 02/05/24 Rx syringe (denosumab) cholecalciferol (vitamin D3) 25 4,000 unit PO DAILY 04/03/22 02/05/24 History mcg (1,000 unit) tablet ipratropium bromide 42 mcg (0.06 2 spray intranasal .q8 04/03/22 02/05/24 History %) nasal spray omeprazole 40 mg capsule,delayed 40 mg PO DAILY 04/03/22 02/05/24 History release gabapentin 100 mg capsule 200 mg PO QHS 04/23/23 02/05/24 History leucovorin 4 mg-pyridoxal 1 tab-cap PO DAILY #30 tabs 09/01/23 02/05/24 Rx phosphate 50 mg-mecobalamin 2 mg tablet (Folinic-Plus) potassium chloride 10 mEq 10 meq PO QHS #30 tabs 09/01/23 02/05/24 Rx tablet,extended release ropinirole 1 mg tablet 1 mg PO QHS #30 tabs 09/01/23 02/05/24 Rx celecoxib 200 mg capsule 200 mg PO DAILY 09/15/23 02/05/24 History terbinafine HCl 250 mg tablet 250 mg PO DAILY 09/15/23 02/05/24 History Have you fallen in the past year?: No PFSH Medical History Arthrosis of right acromioclavicular joint Right rotator cuff tear Impingement of right shoulder Right shoulder pain Laceration of right ring finger Osteoporosis Brain tumor Pericardial effusion Hypothyroidism GERD (gastroesophageal reflux disease) RLS (restless legs syndrome) Malignant neoplasm of colon Malignant neoplasm of kidney DDD (degenerative disc disease) Hyperlipidemia Premature ventricular contraction Premature atrial contractions Surgical History Hx of basal cell carcinoma excision History of eyelid surgery History of cochlear implant History of vein stripping History of shoulder surgery History of tubal ligation History of hysterectomy History of tonsillectomy Family History Father CAD (coronary artery disease) Hx of CABG Mother History of permanent cardiac pacemaker placement Social History Smoking Status: Never smoker alcohol intake: current details: occasional HPI RIGHT SHOULDER Details: This documentation accurately reflects the service provided and the decisions made by me, Dr. Nirmal Head MD 02/05/24 2009. Part of today???s visit was documented by [ ], acting as scribe. AYESHA CASTREJON is a 73 year old F here today for follow-up right shoulder pain. Unfortunately the physical therapy seems to making the pain worse its mostly on the lateral aspect of the arm somewhat radiating downwards. No pain at night no difficulties with nighttime awakenings. The pain is a 4-5 out of 10 and just with activity no pain at rest. Supplemental Info [facility] Imaging Services [address] [place] [address] Upper Ext Joint Only(Routine) MR#: [id number] Acct: [id number] Name: AYESHA CASTREJON Rep #: [id number] : 1950 F 73 From: Dalton Sol MD PCP: Dr. Malvin Douglas MD Status: [facility] Study: Upper Ext Joint Only(Routine) Date of Exam: 12/11/23 Exam# [id number] Ordering Dr: Nirmal Head MD [id number] STUDY: MRI RIGHT SHOULDER REASON FOR EXAM: Female, 73 years old. Pain right shoulder. TECHNIQUE: Standardized fat and water weighted pulse sequences were obtained in all 3 orthogonal planes. COMPARISON: None. FINDINGS: There is a linear interstitial/delaminating tear of the conjoined distal supraspinatus/infraspinat us tendon junction, measuring 1.7 cm in length (coronal T2 series 6 image 8). Normal subscapularis tendon. Normal teres minor tendon. Normal supraspinatus muscle. Normal infraspinatus muscle. Normal subscapularis muscle. Normal teres minor muscle. Normal glenohumeral articulation. (more content not included)... Normal [facility] SCRN MAMM (CAD)W/VANDANA BILATo n 01-29-2024 SCRN MAMM (CAD)W/VANDANA BILAT [facility] Imaging Services [address] [place], [place] [address] SCRN MAMM (CAD)W/VANDANA BILAT MR#: [id number] Acct: [id number] Name: AYESHA CASTREJON Rep #: [id number] : 1950 F 73 From: Kingston luna MD PCP: Dr. Malvin Douglas MD Status: [facility] Study: SCRN MAMM (CAD)W/VANDANA BILAT Date of Exam: 01/17 04/12 Exam# [id number] Ordering Dr: Malvin Douglas [id number] MAMMOGRAPHY - BILATERAL SCREENING REASON FOR EXAM: Female, 73 years old. Routine annual screening examination. PERTINENT HISTORY: Non-contributory. TECHNIQUE: Digital bilateral breast vandana (3D mammographic acquisition) in the CC and MLO projections. 2-D mediolateral oblique (MLO) and craniocaudad (CC) views of both breasts were obtained. CAD: Full Field Digital Mammography with Computer Added Detection was performed. COMPARISON: Comparison is made with prior study dated December 30, 2022 and December 17, 2021. FINDINGS: Breast Composition: There are scattered areas of fibroglandular density. There are no dominant masses or suspicious calcifications. No other significant abnormalities are identified. There has been no significant change since the prior study. BI/SCRN MAMM (CAD)W/VANDANA BILAT IMPRESSION: Stable bilateral screening mammogram. Yearly follow-up mammogram recommended. (A) ASSESSMENT CATEGORY: BIRADS Category 1: Negative. A letter regarding these results will be sent to the patient by the facility within 30 days. Approximately 10% of breast cancers are not detected by mammography. A normal mammogram should not delay biopsy of a clinically suspicious abnormality. [id number] Electronically Signed: Kingston Domingo MD at 10:46 EST , CC: Dr. Malvin Douglas MD Aircraft Load Controller: Signed Normal [facility] PT D/C Summary (1)on 024 PT D/C Summary (1) [facility] Physical Therapy [facility] [address] [place] [address] / REHABILITATION SERVICES DISCHARGE SUMMARY MR#: [id number] Acct: [id number] Name: AYESHA CASTREJON Rep #: [id number] : 1950 73 From: Key Crockett PT, Cert. MDT Referring Dr.: Dr. Nirmal Head MD Status: R EG RCR Insurance: MEDICARE PART A B [facility] Discharge Summary D/C summary: It has been my pleasure to treat AYESHA CASTREJON referred by Dr. Nirmal Head MD, with the diagnosis of R SHLD PAIN, ROTATOR CUFF TEAR ARTHROSIS OF AC JT. for a total of 7 visit(s). Discharge Date: 01/26/24 Please see the following information for a summary of their discharge status. Subjective Subjective: I'M DOING EVERYTHING NOW THAT I WAS BEFORE I STARTED THERAPY BUT I'M NOT BACK TO THE GYM YET. SHE REPORTS SHE WENT TO THE GYM ABOUT 3 TIMES AFTER THE TEAR BEFORE SHE STARTED THERAPY BEFORE SHE KNEW IT WAS A TEAR. SHE STATES SHE LOVES DOING PHYSICAL THERAPY BUT THE PAIN IS GETTING WORSE. PATIENT REPORTS NO PAIN AT REST BUT UP TO 6 - 7 PAIN AT TIMES THAT RADIATES DOWN TO HER FORARM WHEN SHE MOVES CERTAIN WAYS. SHE STATES WHEN SHE LIFTED THE 22 LB TURKEY OUT OF THE FREEZER IT WASN'T VERY SMART AND IT HURT HER ARM. Pain R SHLD: Pain Intensity (Out of 10): 3 Overall Improvement % Improvement: 0 Objective Objective/Function: PATIENT WAS SEEN TODAY FOR RE-ASSESSMENT OF PROGRESS TOWARD THE SET PT GOALS AND THE NEED FOR FURTHER PHYSICAL THERAPY VS READINESS FOR DISCHARGE. PATIENT DEMONSTREATES INCREASED R SHLD ELEVATION TODAY AND SIGNIFICANTLY INCREASED R SHLD STRENGTH WITH TESTING BUT SHE IS REPORTING MORE PAIN AND DENIES INCREASED FUNCTION SINCE STARTING PT. PHYSICIAN RE-ASSESSMENT RECOMMENDED. PATIENT AGREEABLE. UPON EXAM TODAY: ROM deficit: R SHLD ACTIVE FLEXION GROSSLY 152 DEG. R SHLD ACTIVE ABD 160 DEG. PATIENT ACTUALLY HAS MORE ELEVATION IN R UE THAN L NOW. Motor deficit: STRAIN GUAGE TESTING MEASURED IN [place]AK [place]: (PATIENT ACTUALLY HAS MORE STRENGTH IN R SHLD NOW THAN SHE HAD IN L SHLD AT [facility]). 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 Goal Progress: Not Progressing Goal 2:: RESTORE FULL ROM OF R SHLD COMPARED TO L Goal Progress: Goal Met Goal 3:: INCREASE R SHLD STRENGTH TO WITHIN 80% OF L Goal Progress: Goal Met Goal 4:: INDEP HEP Goal Progress: Goal Met Plan Plan: D/C D/C Information d/c sentence: If there are questions or concerns regarding this patient's physical therapy, please feel free to call me at [phone]. Thank you for the referral of this patient. Sincerely, Key Crockett, PT, Cert MDT Balance/Gait/Functional tests Balance/Special Test Scores Quick DASH Score: 20.4525 Improvement % Improvement: 0 01/26/24 1249 CC: Dr. Malvin Douglas MD; Dr. Nirmal Head MD VALENTÍN Signed Normal [facility] [id number] 12-24-2023 [id number] HNO ID: [id number] Author: JANE SURESH RN Service: ? Author Type: Registered Nurse Type: [id number] Filed: 12/24/2023 09:02 Note Text: The patient received a copy of Colonoscopy discharge instructions that contain information for how to contact the physician who performed the procedure and when to seek medical care. Normal [facility] Colonoscopyon 12-24-2023 Colonoscopy [facility] Gastrointestinal Endoscopy Patient Name: Ayesha Castrejon Procedure Date: 12/24/2023 8:04 AM Date of : 1950 Admit Type: Outpatient Age: 73 Gender: Female Note Status: Finalized Procedure: Colonoscopy Indications: High risk colon cancer surveillance: Personal history of colonic polyps Providers: Robyn Horvath MD Patient Profile: This is a 73 year old female. Refer to note in patient chart for documentation of history and physical. Last Colonoscopy: 3 years ago. Referring Physician: Maren Herrmann (Referring ) Medicines: Midazolam 5 mg IV, Fentanyl 75 micrograms IV Complications: No immediate complications. Requesting [...] and the nurse in the procedure room. Mental Status Examination: alert and oriented. Respiratory Examination: clear to auscultation. Prophylactic Antibiotics: The patient does not require [...] valve, appendiceal orifice, and rectum were photographed. The ileocecal valve, appendiceal orifice, and rectum were photographed. The colonoscopy was performed without difficulty. The patient tolerated the procedure well. The quality of the bowel preparation was good. Moderate Sedation: Moderate (conscious) sedation was personally administered by the endoscopist. The following parameters were monitored: oxygen saturation, heart rate, blood pressure, and response to care. Total physician intraservice time was 20 minutes. The administration of moderate sedation was initiated at 08:20 AM. Findings: The perianal and digital rectal examinations were normal. Many medium-mouthed diverticula were found in the sigmoid colon. The exam was otherwise without abnormality on direct and retroflexion views. Impression: - Diverticulosis in the sigmoid colon. - The examination was otherwise normal on direct and retroflexion views. - No specimens collected. Recommendation: - Discharge patient to home. - Resume previous diet. - Continue present medications. - Repeat colonoscopy in 5 years for surveillance. - Patient has a contact number available for emergencies. The signs and symptoms of potential delayed complications were discussed with the patient. Return to normal activities tomorrow. Written discharge instructions were provided to the patient. Procedure Code(s): --- Professional --- 42301, Colonoscopy, flexible; diagnostic, including collection of specimen(s) by brushing or washing, when performed (separate procedure) G0500, Moderate sedation services provided by the same physician or other qualified health patient care specialist performing a gastrointestinal endoscopic service that sedation supports, requiring the presence of an independent trained observer to assist in the monitoring of the patient's level of consciousness and physiological status; initial 15 minutes of intra-service time; patient age 5 years or older (additional time may be reported with 33506, as appropriate) CPT copyright 2020 [employer]. All rights reserved. The codes documented in this report are preliminary and upon sanitary inspector review may be revised to meet current compliance requirements. Attending Participation: I was present and participated during the entire proc (more content not included)... Normal [facility] Colonoscopy Study observatio non 12-24-2023 Qu[facility] Gastrointestinal Endoscopy Patient Name: Ayesha Castrejon Procedure Date: 12/24/2023 8:04 AM Date of : 1950 Admit Type: Outpatient Age: 73 Gender: Female Note Status: Finalized Procedure: Colonoscopy Indications: High risk colon cancer surveillance: Personal history of colonic polyps Providers: Robyn Horvath MD Patient Profile: This is a 73 year old female. Refer to note in patient chart for documentation of history and physical. Last Colonoscopy: 3 years ago. Referring Physician: Maren Herrmann (Referring MD) Medicines: Midazolam 5 mg IV, Fentanyl 75 micrograms IV Complications: No immediate complications. Requesting [...] and the nurse in the procedure room. Mental Status Examination: alert and oriented. Respiratory Examination: clear to auscultation. Prophylactic Antibiotics: The patient does not require [...] valve, appendiceal orifice, and rectum were photographed. The ileocecal valve, appendiceal orifice, and rectum were photographed. The colonoscopy was performed without difficulty. The patient tolerated the procedure well. The quality of the bowel preparation was good. Moderate Sedation: Moderate (conscious) sedation was personally administered by the endoscopist. The following parameters were monitored: oxygen saturation, heart rate, blood pressure, and response to care. Total physician intraservice time was 20 minutes. The administration of moderate sedation was initiated at 08:20 AM. Findings: The perianal and digital rectal examinations were normal. Many medium-mouthed diverticula were found in the sigmoid colon. The exam was otherwise without abnormality on direct and retroflexion views. Impression: - Diverticulosis in the sigmoid colon. - The examination was otherwise normal on direct and retroflexion views. - No specimens collected. Recommendation: - Discharge patient to home. - Resume previous diet. - Continue present medications. (more content not included)... PROVATION [facility] Radiology Study observation (narrative) [facility] HISTORY PHYSICALon HISTORY PHYSICAL HNO ID: [id number] Author: ROBYN HORVATH MD Service: General Surgery Author Type: Physician Type: H&P Filed: 12/24/2023 08:03 Note Text: HISTORY AND PHYSICAL Ayesha Castrejon : 1950 REFERRING PHYSICIAN: Robyn Horvath [address] [facility] [address] CHIEF COMPLAINT: Patient presents with: Consult HPI: [...] red blood per rectum. Ayesha denies hemorrhoids. Ayehsa notes a distant history of heartburn. Controlled with omeprazole 40 mg daily Ayesha denies dysphagia. Ayesha denies a history of ulcers/ peptic ulcer disease. Notes family history of colon issues.-Father with colon cancer Ayesha has undergone prior endoscopy. Last colonoscopy 11/[address] Horvath at [facility]. Sedation received: Midazolam 5 mg IV, Fentanyl 100 micrograms IV Impression: - One small polyp in the proximal descending colon, removed with a cold biopsy forceps. Resected and retrieved. - One 7 mm polyp in the proximal rectum, removed piecemeal using a cold snare. Resected and retrieved. Clips (MR conditional) were placed. Clip mixing machine tender: [place]. - The examination was otherwise normal on direct and retroflexion views. - Diverticulosis in the sigmoid colon. PATHOLOGY FINAL DIAGNOSIS A. Descending colon polyp, biopsy: - Tubular adenoma. B. Rectal polyp, biopsy: - Tubular adenoma. JEL 12/05/2021 CURRENT MEDICATIONS Current Outpatient Medications Medication Sig celecoxib (CELEBREX) [...] daily as needed. May take two capsules iaoqmmbnpn-qmwwhgw-iysqec alejandra (FOLINIC-PLUS) 4-50-2 mg tab Take 1 tablet [...] (FLONASE) 50 mcg/actuation nasal spray Use 1 [place] in each nostril as needed. 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 Normal [facility] NURSING PROGon 12-24-2023 NURSING PROG HNO ID: [id number] Author: JANE SURESH RN Service: ? Author Type: Registered Nurse Type: Nursing Progress Note Filed: 12/24/2023 09:01 Note Text: Patient received in phase II via cart in left lateral position, eyes open, alert to self, event and place, skin warm and dry, respirations regular and unlabored, abdomen soft and non distended. Denies pain or nausea. Resting comfortably on left side, brought to bedside. Normal [facility] Inital Evaluation (1) - PTon 12-19-2023 Inital Evaluation (1) - PT [facility] [address] [place] [address] / REHABILITATION SERVICES INITIAL EVALUATION MR#: [id number] Acct: [id number] Name: AYESHA CASTREJON Rep #: [id number] : 1950 73 From: Key Crockett PT, Cert. MDT Referring Dr.: Dr. Nirmal Head MD Status: R EG RCR Insurance: MEDICARE PART A B ANTHEM Patient's Visit Information Visit Information Visit Information: AYESHA CASTREJON is a 73 year old F referred to Physical Therapy by Dr. Nirmal Head MD with a diagnosis of R SHLD PAIN, ROTATOR CUFF TEAR ARTHROSIS OF AC JT.. Date of Evaluation: 12/19/23 Physical Therapist: Key Crockett PT, Cert MDT Visit Plan Frequency: 3x /Week Duration: 4-6 Weeks Plan: *Linear interstitial/delaminating tear of the conjoined distal supraspinatus/infraspinat us tendon junction, measuring 1.7 cm in length.* *OSTEOPOROSIS* R SHLD ROM, STRETCHING AND STRENGTHENING TO HELP RESTORE FULL FUNCTION IN CONFORTABLE ROM AND INTENSITY. MODALITIES NEEDED FOR PAIN AND INFLAMMATION CONTROL. Subjective Subjective: Work/Leisure: RETIRED. 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 Present symptoms: R SHLD PAIN. INTERMITTENT R UE NUMBNESS AND TINGLING WHEN LYING ON R SIDE AT NIGHT. Present since: SEP 2023 Pain Scale: Worst - 4/10 Least - 0/10. DULL ACHE AT TIMES AT REST BUT OTHER TIMES THINKS IT IS 0/10. 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 Symptoms at onset: ANTERIOR R SHLD PAIN Worse: PUSHING DOWN, PUSHING OUT AND PULLIING UP. CORTISONE SHOT 10/10/23 MADE IT WORSE FOR ABOUT A WEEK - I COULDN'T MOVE MY ARM FOR ABOUT A WEEK. LYING ON R SIDE. PULLING PANTS UP. HANGING THINGS. PUSHING SWEEPER OR EVEN DOING THE MOTIONG WITHOUT ANYTHING IN HAND - THEN IT ACHES. Better: AVOIDING ABOVE. Disturbed sleep: SOMETIMES. Previous history/Previous treatment: NO This episode: ONE CORTISONE SHOT. ICE. CHIROPRACTIC IN THE BEGINNING - WITHOUT BENEFIT PER PATIENT REPORT. Imagin12/11/23: R SHLD MRI: IMPRESSION: Linear interstitial/delaminating tear of the conjoined distal supraspinatus/infraspinat us tendon junction, measuring 1.7 cm in length. Mild hypertrophic acromioclavicular arthrosis. Mild subacromial-subdeltoid bursitis. PMH/Recent major surgery: chronic neck pain - chiropractic regularly. 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 Pericardial effusion Hypothyroidism GERD (gastroesophageal reflux disease) RLS (restless legs syndrome) DDD (degenerative disc disease) Hyperlipidemia Premature ventricular contraction Premature atrial contractions Hx of basal cell carcinoma excision History of eyelid surgery History of cochlear implant History of vein stripping History of shoulder surgery History of tubal ligation History of hysterectomy History of tonsillectomy Objective Objective: Sitting Posture/Standing Posture: FH. RSH'S. NO TORTICOLLIS. Active Correction of posture: NE. DOES NOT MAINTAIN. Other Observations: INDEP GAIT AND TRANSFERS. Sensory deficit: JONH UE LIGHT TOUCH SENSATION IS INTACT AND SYMMETRICAL ROM deficit: JONH SHLD ACTIVE FLEXION GROSSLY 140 DEG. JONH SHLD ACTIVE ABD GROSSLY 160 DEG. SUPINE IR/ER WITH 70 DEG ABD = 60/65 DEG. PATIENT DENIES INCREASED PAIN WITH AROM TESTING R SHLD FLEX AND ABD TESTING. C/O PAIN WITH IR/ER TESTING BUT ESPECIALLY IR TESTING. SHE ALSO REPORTS R SHLD ACHING AFTER MAKING REPETATIVE FORWARD AND BACKWARD MOTION WITH R ARM IF VACUUMING. Motor deficit: STRAIN GUAGE TESTING MEASURED IN PEAK [place]CE: SHLD FLEX R 5.9, L 11.4 LBS SHLD ABD R 9.2, L 16.1 LBS SHLD IR R 10.4, L 14.3 LBS SHLD ER R 7.1, L 12.9 LBS ELBOW FLEX R 9.1, L 12.8 LBS ELBOW EXT R 7.0, L 8 LBS. 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 L 35 LBS Cervical Mvmt Loss: Flex: NIL Pro: NIL Ext: MOD Ret: MOD RSB: MOD LSB: MOD R Rot: MIN L Rot: NIL PATIENT DENIES NECK AND SHLD PAIN WITH CERVICAL ROM TESTING. Postural strength: FAIR Balance/Special Test Scores Quick DASH Score: 18.1800 Goals Goal 1:: DECREASE C/O R SHLD PAIN BY AT LEAST 75% TO EASE ADL'S. Goal Time Frame: 4-6 Weeks Goal 2:: RESTORE FULL ROM OF R SHLD COMPARED TO L Goal Time Frame: 4-6 Weeks Goal 3:: INCREASE R SHLD STRENGTH TO WITHIN 80% OF L Goal Time Frame: 4-6 Weeks Goal 4:: INDEP HEP Goal Time Frame: 4-6 Weeks Rehabilitation Potential Physical Therapy Diagnosis: R SHLD TIGHTNESS AND WEAKNESS. Rehabilitation Potential: Good Anticipated Interventions Patient/Client Instruction: Educate patient on: Condition, Plan of Care and Risk Factors For the Purpose of:: To improve self management Therapeutic Exercise to Include: Strength training, (more content not included)... Normal [facility] Orthopedic Visit Reporton Orthopedic Visit Report [facility] [address] [place] [address] OFFICE VISIT Date of Service: 12/15/23 MR#: [id number] Acct: [id number] Name: AYESHA CASTREJON Rep #: [id number] : 1950 Provider: Dr. Nirmal cabrera MD Age/Sex: 73/F [place] [facility] [place] Status: Signed Intake Vital Signs 10/14/23 14:52 12/12/23 11:28 Height 5 ft 1.5 in 5 ft 1.5 in Intake Visit Reasons: RIGHT SHOULDER Accompanied by: Self Is patient in pain?: Yes Pain scale (1-10): 3 Allergies pseudoephedrine Allergy (Verified 12/15/23 13:01) Rapid Heart rate Medications ???Medication ???Instructions ???Recorded ???Confirmed ???Type levothyroxine 50 mcg tablet 50 mcg PO DAILY 10/03/13 12/15/23 History vitamins B1 B6 B12 tablet 1 tab PO DAILY 10/20/20 12/15/23 History Prolia 60 mg/mL subcutaneous 60 mg subcut [id number] #1 mL 08/01/22 10/28/24 Rx syringe (denosumab) cholecalciferol (vitamin D3) 25 4,000 unit PO DAILY 04/03/22 12/15/23 History mcg (1,000 unit) tablet ipratropium bromide 42 mcg (0.06 2 spray intranasal .q8 04/03/22 12/15/23 History %) nasal spray omeprazole 40 mg capsule,delayed 40 mg PO DAILY 04/03/22 12/15/23 History release gabapentin 100 mg capsule 200 mg PO QHS 04/23/23 12/15/23 History leucovorin 4 mg-pyridoxal 1 tab-cap PO DAILY #30 tabs 09/01/23 12/15/23 Rx phosphate 50 mg-mecobalamin 2 mg tablet (Folinic-Plus) potassium chloride 10 mEq 10 meq PO QHS #30 tabs 09/01/23 12/15/23 Rx tablet,extended release ropinirole 1 mg tablet 1 mg PO QHS #30 tabs 09/01/23 12/15/23 Rx celecoxib 200 mg capsule 200 mg PO DAILY 09/15/23 12/15/23 History terbinafine HCl 250 mg tablet 250 mg PO DAILY 09/15/23 12/15/23 History Have you fallen in the past year?: Yes [facility] Medical History (Updated 12/15/23 @ 13:10 by Nirmal Head MD) Arthrosis of right acromioclavicular joint Right rotator cuff tear Impingement of right shoulder Right shoulder pain Laceration of right ring finger Osteoporosis Brain tumor Pericardial effusion Hypothyroidism GERD (gastroesophageal reflux disease) RLS (restless legs syndrome) Malignant neoplasm of colon Malignant neoplasm of kidney DDD (degenerative disc disease) Hyperlipidemia Premature ventricular contraction Premature atrial contractions Surgical History (Updated 12/15/23 @ 13:02 by Ryanne Zarate MA) Hx of basal cell carcinoma excision History of eyelid surgery History of cochlear implant History of vein stripping History of shoulder surgery History of tubal ligation History of hysterectomy History of tonsillectomy Family History Father CAD (coronary artery disease) Hx of CABG Mother History of permanent cardiac pacemaker placement Social History Smoking Status: Never smoker alcohol intake: current details: occasional HPI RIGHT SHOULDER Details: This documentation accurately reflects the service provided and the decisions made by me, Dr. Nirmal Head MD 12/15/23 2445. Part of today???s visit was documented by [ ], acting as scribe. AYESHA CASTREJON is a 73 year old F here today for FU R shoulder MRI. Patient unfortunately did not get any relief from the cortisone injection. There is still having nighttime symptoms and pain in the shoulder especially with lifting. Patient has not done physical therapy yet formally. They did tried in the past for hip bursitis Ortho Exam General General: Yes no acute distress Neurologic: Yes alert and Yes oriented x3 Psychologic: Yes reasonable and appropriate Right Shoulder Skin/Wound: Yes CDI, No ecchymosis, No erythema and No swelling Testing: Positive Hawkin's, Speed's, TTP Biceps, AROM-Forward Elevation 0-180, AROM-External Rotation at side 0-60, empty can and belly press normal; Negative Neer's, TTP AC Joint, Drop Arm, cross arm, lift off or scapular winging Internal Rotation: L2 SHOULDER: normal motor and sens to ax nerve, and MRU and AIN/PIN Supplemental Info [facility] Services [address] [place], [place] [address] Upper Ext Joint Only(Routine) MR#: [id number] Acct: [id number] Name: AYESHA CASTREJON Rep #: [id number] : 1950 F 73 From: Dalton Sol MD PCP: Dr. Malvin Douglas MD Status: REG CLI Study: Upper Ext Joint Only(Routine) Date of Exam: 12/11/23 Exam# [id number] Ordering Dr: Nirmal Head MD [id number] STUDY: MRI RIGHT SHOULDER REASON FOR EXAM: Female, 73 years old. Pain right shoulder. TECHNIQUE: Standar (more content not included)... Normal [facility] Upper Ext Joint Only(Routine )on 12-11-2023 Upper Ext Joint Only(Routine) [facility] Imaging Services [address] [place], [place] [address] Upper Ext Joint Only(Routine) MR#: [id number] Acct: [id number] Name: AYESHA CASTREJON Rep #: [id number] : 1950 F 73 From: Dalton Sol MD PCP: Dr. Malvin Douglas MD Status: REG CLI Study: Upper Ext Joint Only(Routine) Date of Exam: Exam# [id number] Ordering Dr: Nirmal Head MD [id number] STUDY: MRI RIGHT SHOULDER REASON FOR EXAM: Female, 73 years old. Pain right shoulder. TECHNIQUE: Standardized fat and water weighted pulse sequences were obtained in all 3 orthogonal planes. COMPARISON: None. FINDINGS: There is a linear interstitial/delaminating tear of the conjoined distal supraspinatus/infraspinat us tendon junction, measuring 1.7 cm in length (coronal T2 series 6 image 8). Normal subscapularis tendon. Normal teres minor tendon. Normal supraspinatus muscle. Normal infraspinatus muscle. Normal subscapularis muscle. Normal teres minor muscle. Normal glenohumeral articulation. There is tiny enthesopathic subcortical cyst formation of the greater tuberosity of the humeral head. Normal biceps labral complex. Normal intracapsular long biceps tendon. Normal labrum. Normal capsulo-ligamentous complex. Normal rotator interval. There is mild hypertrophic acromioclavicular arthrosis. There is a Type II morphology (curved), with a neutral orientation. There is a small amount of subacromial-subdeltoid bursal fluid. Normal visualized coracohumeral and coracoacromial ligaments. Normal quadrilateral space. Normal axillary space. Normal deltoid muscle. Normal trapezius muscle. MRI/Upper Ext Joint Only(Routine) IMPRESSION: Linear interstitial/delaminating tear of the conjoined distal supraspinatus/infraspinat us tendon junction, measuring 1.7 cm in length. Mild hypertrophic acromioclavicular arthrosis. Mild subacromial-subdeltoid bursitis. Electronically Signed: Dalton Sol MD at 15:16 EDT , CC: Dr. Malvin Douglas MD; Dr. Nirmal Head MD Aircraft Load Controller: Signed Normal [facility] Liver Profileon 12-09-2023 Albumin [Mass/Vol] 3.5 g/dL Normal 3.2-5.0 [facility] Comment on above: Order Comment: Order Date: 12/09/23Order Info: [id number] - LIVER Performed By: #### L 500.3400 ####[facility] [id number] [place], [address] ALK P 115 U/L Normal 45-117 [facility] Comment on above: Order Comment: Order Date: 12/09/23Order Info: [id number] - LIVER Performed By: #### L 500.3400 ####[facility] [id number] [place], [address] ALT [Catalytic activity/Vol] 20 U/L Normal 13-56 [facility] Comment on above: Order Comment: Order Date: 12/09/23Order Info: [id number] - LIVER Performed By: #### L 500.3400 ####[facility] [id number] [place], [address] AST [Catalytic activity/Vol] 24 U/L Normal 15-37 [facility] Comment on above: Order Comment: Order Date: 12/09/23Order Info: [id number] - LIVER Performed By: #### L 500.3400 ####[facility] [address] [place], [address] Bilirubin [Mass/Vol] 0.30 mg/dL Normal 0.20-1.[address] [facility] Comment on above: Order Comment: Order Date: 12/09/23Order Info: [id number] - LIVER Result Comment: For patients on eltrombopag therapy, use of Dimension Arrey TBIL is not recommended. Performed By: #### L 500.3400 ####[facility] [place] [address] [place], [place], [address] Bilirubin.direct [Mass/Vol] 0.09 mg/dL Normal 0.00-0.30 [facility] Comment on above: Order Comment: Order Date: 12/09/23Order Info: [id number] - LIVER Performed By: #### L 500.3400 ####[facility] [address] [place], [place], [address] Globulin (S) [Mass/Vol] 3.2 g/dL Normal 2.2-4.2 [facility] Comment on above: Order Comment: Order Date: 12/09/23Order Info: 0788-1 - LIVER Performed By: #### L 500.3400 ####[facility] [address] [place], [place], [address] T PROT 6.7 g/dL Normal 6.4-8.2 [facility] Comment on above: Order Comment: Order Date: 12/09/23Order Info: 0788-1 - LIVER Performed By: #### L 500.3400 ####[facility] [address] [place], [place], [address] CNOVon 11-13-2023 CNOV Office Visit (SWS ) ----- AYESHA CASTREJON ([id number]) 1950 F Date Time Provider Department 11/13/23 11:00 AM MAREN HERRMANN GENSWS During your visit today, we recorded the following information about you: Temperature Pulse Respiration Blood pressure 98 degrees 64/minute 14/minute 120/76 Weight 52.2 kg Maren Herrmann APRN.CNP 11/13/2023 11:31 AM Signed HISTORY AND PHYSICAL Ayesha Castrejon : 1950 REFERRING PHYSICIAN: Robyn Horvath [address] [facility] [address] CHIEF COMPLAINT: Patient presents with: Consult HPI: [...] prior endoscopy. Last colonoscopy 11/[address] Horvath at [facility]. Sedation received: Midazolam 5 mg IV, Fentanyl 100 micrograms IV Impression: - One small polyp in the proximal descending colon, removed with a cold biopsy forceps. Resected and retrieved. - One 7 mm polyp in the proximal rectum, removed piecemeal using a cold snare. Resected and retrieved. Clips (MR conditional) were placed. Clip mixing machine tender: [place]. - The examination was otherwise normal on [...] daily as needed. May take two capsules wuiwgslrdn-sunrizv-vzffgb alejandra (FOLINIC-PLUS) 4-50-2 mg tab Take 1 tablet [...] (FLONASE) 50 mcg/actuation nasal spray Use 1 [place] in each nostril as needed. TURMERIC ORAL [...] AND CURETTAGE DXAND/THER NONOBSTETRIC Dilation AND curettage ESOPHAGOGASTRODUODENOS (more content not included)... Normal [facility] Orthopedic Visit Reporton Orthopedic Visit Report [facility] [address] [place] [address] OFFICE VISIT Date of Service: 10/14/23 MR#: [id number] Acct: [id number] Name: AYESHA CASTREJON Rep #: [id number] : 1950 Provider: Dr. Nirmal cabrera MD Age/Sex: 73/F [place] [facility] Status: Signed Intake Vital Signs 09/15/23 14:16 10/14/23 14:52 Height 5 ft 1.5 in 5 ft 1.5 in Weight: 116 lb BMI 21.5 Intake Visit Reasons: RIGHT SHOULDER Accompanied by: Self Is patient in pain?: Yes Allergies meperidine (From Demerol) Adverse Reaction (Severe, Verified 10/14/23 14:53) Nausea Medications ???Medication ???Instructions ???Recorded ???Confirmed ???Type levothyroxine 50 mcg tablet 50 mcg PO DAILY 10/03/13 10/14/23 History vitamins B1 B6 B12 tablet 1 tab PO DAILY 10/20/20 10/14/23 History Prolia 60 mg/mL subcutaneous 60 mg subcut X1PXINTK #1 mL 09/17/21 10/14/23 Rx syringe (denosumab) cholecalciferol (vitamin D3) 25 4,000 unit PO DAILY 04/03/22 10/14/23 History mcg (1,000 unit) tablet ipratropium bromide 42 mcg (0.06 2 spray intranasal .q8 04/03/22 10/14/23 History %) nasal spray omeprazole 40 mg capsule,delayed 40 mg PO DAILY 04/03/22 10/14/23 History release gabapentin 100 mg capsule 200 mg PO QHS 04/23/23 10/14/23 History leucovorin 4 mg-pyridoxal 1 tab-cap PO DAILY #30 tabs 09/01/23 10/14/23 Rx phosphate 50 mg-mecobalamin 2 mg tablet (Folinic-Plus) potassium chloride 10 mEq 10 meq PO QHS #30 tabs 09/01/23 10/14/23 Rx tablet,extended release ropinirole 1 mg tablet 1 mg PO QHS #30 tabs 09/01/23 10/14/23 Rx celecoxib 200 mg capsule 200 mg PO DAILY 09/15/23 10/14/23 History terbinafine HCl 250 mg tablet 250 mg PO DAILY 09/15/23 10/14/23 History Have you fallen in the past year?: Yes PFSH Medical History (Updated 10/14/23 @ 15:22 by Nirmal Head MD) Impingement of right shoulder Right shoulder pain Laceration of right ring finger Osteoporosis Brain tumor Pericardial effusion Hypothyroidism GERD (gastroesophageal reflux disease) RLS (restless legs syndrome) Malignant neoplasm of colon Malignant neoplasm of kidney DDD (degenerative disc disease) Hyperlipidemia Premature ventricular contraction Premature atrial contractions Surgical History (Updated 10/14/23 @ 14:55 by Elizabeth Rodriguez) History of eyelid surgery History of cochlear implant History of vein stripping History of shoulder surgery History of tubal ligation History of hysterectomy History of tonsillectomy Family History Father CAD (coronary artery disease) Hx of CABG Mother History of permanent cardiac pacemaker placement Social History Smoking Status: Never smoker alcohol intake: current details: occasional HPI RIGHT SHOULDER Details: This documentation accurately reflects the service provided and the decisions made by me, Dr. Nirmal Head MD 10/14/23 1049. Part of today???s visit was documented by [ ], acting as scribe. AYESHA CASTREJON is a 73 year old F here today for right shoulder pain after working out. 1 month hx right shoulder pain, anterior and lateral side, all around, and superior. was working out, hard to pull up the pants and do lifting. RHD. night time symptoms - does wake up , worse to sleep on it. sometimes radiates down to the elbow. sometimes a 10 during the day 4-5. tx ice heat and massage. no surgery. no cortisone injection. PT - yes but for separate injury to the mid triceps area. 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 Office Procedures Ortho Injections Injections Yes Subacromial Injection Right Is this a patient provided medication?: No Details: Obtained consent for injection. Under sterile conditions, injected the patients Right Shoulder with 2ml Kenalog and 4ml Bupivacaine. The patient tolerated the injection well without any noted complication. Patient should call our office if redness develops, pain worsens or if they have any concerns. Office Meds Kenalog 40 mg/mL suspension for injection Performing Provider: Nirmal Head MD Performing Location: [facility] Administered by: Nirmal Head MD on 10/14/23 15:22 Dose Route Admin Location Dispensed Lot Number Expiration Date ND Yung ufacturer 80 mg intra-articular right shoulder 2 mL [id number] 05/18/25 9524-6715-16 [facility] Supplemental Info Right shoulder x-rays 4 views obtained this demonstrates glenohumeral joint space well-maintained. Mild AC joint arthrosis. No superior humeral head migration. 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 (more content not included)... Normal [facility] Shoulder min 2 Viewson 10-13 Shoulder min 2 Views [facility] [address] [place] [address] Shoulder min 2 Views MR#: [id number] Acct: [id number] Name: AYESHA CASTREJON Rep #: [id number] : 1950 F 73 From: Dalton Sol MD PCP: Dr. Malvin Douglas MD Status: DEP AMB Study: Shoulder min 2 Views Date of Exam: 10/14/23 Exam# [id number] Ordering Dr: Nirmal Head MD [id number] STUDY: X-RAY - RIGHT SHOULDER REASON FOR EXAM: Female, 73 years old. Pain. TECHNIQUE: 4 views of the right shoulder. COMPARISON: None. FINDINGS: Normal glenohumeral articulation. There is mild acromioclavicular arthrosis. Normal acromion. Normal humeral head and visualized proximal humerus. The soft tissue structures are unremarkable. There is no demonstrated fracture. Normal visualized pulmonary apex. RAD/Shoulder min 2 Views IMPRESSION: Mild acromioclavicular arthrosis. No demonstrated fracture. Electronically Signed: Dalton Sol MD at 16:06 EDT , CC: Dr. Malvin Douglas MD; Dr. Nirmal Head MD Aircraft Load Controller: Signed Normal [facility] SCOTT w/ Reflex Mult Confirmon 09-24-2023 SCOTT TABLE Comment Normal . [facility] Comment on above: Result Comment: Auto antibody Disease Association Condition Frequency --------- Antinuclear Antibody, SLE, mixed connective Direct (SCOTT-D) tissue diseases --------- dsDNA SLE 40 - 60% --------- Chromatin Drug induced SLE 90% SLE 48 - 97% --------- SSA (Ro) SLE 25 - 35% Sjogren's Syndrome 40 - 70% Lupus 100% --------- SSB (La) SLE 10% Sjogren's Syndrome 30% --------- Sm (anti-Leal) SLE 15 - 30% --------- CORPORATE VP ADVERTISING & ONLINE Mixed Connective Tissue Disease 95% (U1 nRNP, SLE 30 - 50% anti-ribonucleoprotein) Polymyositis and/or Dermatomyositis 20% --------- Scl-70 (antiDNA Scleroderma (diffuse) 20 - 35% topoisomerase) Crest 13% --------- Michelle-1 Polymyositis and/or Dermatomyositis 20 - 40% --------- Centromere B Scleroderma - Crest variant 80% Performed at: CB - [facility] [id number] Washer Blanket: Adam Regalado PhD, Phone: [phone] Performed By: #### L 100.0100, L3100.5800, L3100.5450, L400.0001, L3100.5700, L500.4050, L101.9900, L501.6710, L3100.6900, L501.3620, M100.2200 ####[facility] [address] [facility] [place], [place], [id number] SCOTT,DIRECT Positive Abnormal Negative [facility] Comment on above: Performed By: #### L 100.0100, L3100.5800, L3100.5450, L400.0001, L3100.5700, L500.4050, L101.9900, L501.6710, L3100.6900, L501.3620, M100.2200 ####[facility] [address] [facility] [place], [place], [id number] ANTI-CENT B AB <0.2 Normal 0.0-0.9 [facility] Comment on above: Performed By: #### L 100.0100, L3100.5800, L3100.5450, L400.0001, L3100.5700, L500.4050, L101.9900, L501.6710, L3100.6900, L501.3620, M100.2200 ####[facility] [address] [facility] [place], [place], [address] ANTI-DNA (DS)AB 15 IU/mL Abnormal 0-9 [facility] Comment on above: Result Comment: Nega tive <5 Equivocal 5 - 9 Positive >9 Performed By: #### L 100.0100, L3100.5800, L3100.5450, L400.0001, L3100.5700, L500.4050, L101.9900, L501.6710, L3100.6900, L501.3620, M100.2200 ####[facility] [address] [place], [place], [phone] ANTI-MICHELLE-1 <0.2 Normal 0.0-0.9 [facility] Comment on above: Performed By: #### L 100.0100, L3100.5800, L3100.5450, L400.0001, L3100.5700, L500.4050, L101.9900, L501.6710, L3100.6900, L501.3620, M100.2200 ####[facility] [address] [place], [place], [phone] ANTI-SS-A < 0.2 Normal 0.0-0.9 [facility] Comment on above: Performed By: #### L 100.0100, L3100.5800, L3100.5450, L400.0001, L3100.5700, L500.4050, L101.9900, L501.6710, L3100.6900, L501.3620, M100.2200 ####[facility] [address] [place], [place], [id number] ANTI-SS-B < 0.2 Normal 0.0-0.9 [facility] Comment on above: Performed By: #### L 100.0100, L3100.5800, L3100.5450, L400.0001, L3100.5700, L500.4050, L101.9900, L501.6710, L3100.6900, L501.3620, M100.2200 ####[facility] [address] [place], [place], [phone] ANTICHROMATIN <0.2 Normal 0.0-0.9 [facility] Comment on above: Performed By: #### L 100.0100, L3100.5800, L3100.5450, L400.0001, L3100.5700, L500.4050, L101.9900, L501.6710, L3100.6900, L501.3620, M100.2200 ####[facility] [address] [place], [address] ANTISCLERODERM <0.2 Normal 0.0-0.9 [facility] Comment on above: Performed By: #### L 100.0100, L3100.5800, L3100.5450, L400.0001, L3100.5700, L500.4050, L101.9900, L501.6710, L3100.6900, L501.3620, M100.2200 ####[facility] [address] [place], [place], [id number] CORPORATE VP ADVERTISING [employer] ONLINE Ab <0.2 Normal 0.0-0.9 [facility] Comment on above: Performed By: #### L 100.0100, L3100.5800, L3100.5450, L400.0001, L3100.5700, L500.4050, L101.9900, L501.6710, L3100.6900, L501.3620, M100.2200 ####[facility] [address] [place], [place], [id number] LEAL Ab <0.2 Normal 0.0-0.9 [facility] Comment on above: Performed By: #### L 100.0100, L3100.5800, L3100.5450, L400.0001, L3100.5700, L500.4050, L101.9900, L501.6710, L3100.6900, L501.3620, M100.2200 ####[facility] [address] [place], [place], [phone] Angiotensin Convert Enzymeon 09-24-2023 ANGIOT-CONV.ENZ 77 U/L Normal 14-82 [facility] Comment on above: Result Comment: Perf ormed at: - [facility] [address] [id number] Washer Blanket: Adam Regalado PhD, Phone: [phone] Performed By: #### L 100.0100, L3100.5800, L3100.5450, L400.0001, L3100.5700, L500.4050, L101.9900, L501.6710, L3100.6900, L501.3620, M100.2200 ####[facility] [address] [place], [address] Complement C3on 09-24-2023 COMP C3 128 mg/dL Normal 82-167 [facility] Comment on above: Performed By: #### L 100.0100, L3100.5800, L3100.5450, L400.0001, L3100.5700, L500.4050, L101.9900, L501.6710, L3100.6900, L501.3620, M100.2200 ####[facility] [address] [place], [place], [id number] Complement C4on 09-24-2023 COMPLEMENT, C4 27 mg/dL Normal 12-38 [facility] Comment on above: Performed By: #### L 100.0100, L3100.5800, L3100.5450, L400.0001, L3100.5700, L500.4050, L101.9900, L501.6710, L3100.6900, L501.3620, M100.2200 ####[facility] [address] [place], [place], [phone] Urine Cultureon 09-24-2023 URC Culture exhibits no growth. Normal [facility] Comment on above: Performed By: #### L 100.0100, L3100.5800, L3100.5450, L400.0001, L3100.5700, L500.4050, L101.9900, L501.6710, L3100.6900, L501.3620, M100.2200 ####[facility] [address] [place], [place], [id number] CBC W/Diff, Automatedon 08-0 Absolute Lymph 1.17 X10 3/uL Normal 0.83-4.51 [facility] Comment on above: Performed By: #### L 100.0100, L3100.5800, L3100.5450, L400.0001, L3100.5700, L500.4050, L101.9900, L501.6710, L3100.6900, L501.3620, M100.2200 ####[facility] [address] [place], [place], [phone]) Absolute Neut 1.4 X10 3/uL Low 2.0-7.7 [facility] Comment on above: Performed By: #### L 100.0100, L3100.5800, L3100.5450, L400.0001, L3100.5700, L500.4050, L101.9900, L501.6710, L3100.6900, L501.3620, M100.2200 ####[facility] [address] [place], [place], [phone] Basophils/100 WBC (Bld) 0.6 % Normal 0-1 [facility] Comment on above: Performed By: #### L 100.0100, L3100.5800, L3100.5450, L400.0001, L3100.5700, L500.4050, L101.9900, L501.6710, L3100.6900, L501.3620, M100.2200 ####[facility] [address] [place], [place], [phone] Eosinophils/100 WBC (Bld) 7.4 % High 0-5 [facility] Comment on above: Performed By: #### L 100.0100, L3100.5800, L3100.5450, L400.0001, L3100.5700, L500.4050, L101.9900, L501.6710, L3100.6900, L501.3620, M100.2200 ####[facility] [address] [place], [address] Erythrocyte distribution width (RBC) [Ratio] 12.9 % Normal 11.6-14.6 [facility] Comment on above: Performed By: #### L 100.0100, L3100.5800, L3100.5450, L400.0001, L3100.5700, L500.4050, L101.9900, L501.6710, L3100.6900, L501.3620, M100.2200 ####[facility] [address] [facility] [place], [place], [phone]) Hematocrit (Bld) [Volume fraction] 37.1 % Normal 37-47 [facility] Comment on above: Performed By: #### L 100.0100, L3100.5800, L3100.5450, L400.0001, L3100.5700, L500.4050, L101.9900, L501.6710, L3100.6900, L501.3620, M100.2200 ####[facility] [address] [facility] [place], [place], [phone](596) Hemoglobin (Bld) [Mass/Vol] 12.0 g/dL Normal 12.0-15.0 [facility] Comment on above: Performed By: #### L 100.0100, L3100.5800, L3100.5450, L400.0001, L3100.5700, L500.4050, L101.9900, L501.6710, L3100.6900, L501.3620, M100.2200 ####[facility] [address] [facility] [place], [place], [phone]) IG% 0.000 Normal 0.0-0.9 [facility] Comment on above: Result Comment: IG% - Immature Granulocytes (promyelocytes, myelocytes and metamyelocytes) > 1% indicates that a LEFT SHIFT is Present. Performed By: #### L 100.0100, L3100.5800, L3100.5450, L400.0001, L3100.5700, L500.4050, L101.9900, L501.6710, L3100.6900, L501.3620, M100.2200 ####[facility] [address] [place], [address] Lymphocytes/100 WBC (Bld) 37.5 % Normal 19-41 [facility] Comment on above: Performed By: #### L 100.0100, L3100.5800, L3100.5450, L400.0001, L3100.5700, L500.4050, L101.9900, L501.6710, L3100.6900, L501.3620, M100.2200 ####[facility] [address] [place], [address] MCH (RBC) [Entitic mass] 31.2 pg Normal 27.0-32.0 [facility] Comment on above: Performed By: #### L 100.0100, L3100.5800, L3100.5450, L400.0001, L3100.5700, L500.4050, L101.9900, L501.6710, L3100.6900, L501.3620, M100.2200 ####[facility] [address] [place], [address] MCHC (RBC) [Mass/Vol] 32.3 g/dL Normal 32-36 [facility] Comment on above: Performed By: #### L 100.0100, L3100.5800, L3100.5450, L400.0001, L3100.5700, L500.4050, L101.9900, L501.6710, L3100.6900, L501.3620, M100.2200 ####[facility] [address] [place], [address] MCV (RBC) [Entitic vol] 96.4 fL Normal 81-99 [facility] Comment on above: Performed By: #### L 100.0100, L3100.5800, L3100.5450, L400.0001, L3100.5700, L500.4050, L101.9900, L501.6710, L3100.6900, L501.3620, M100.2200 ####[facility] [address] [place], [address] Monocytes/100 WBC (Bld) 9.9 % Normal 0-10 [facility] Comment on above: Performed By: #### L 100.0100, L3100.5800, L3100.5450, L400.0001, L3100.5700, L500.4050, L101.9900, L501.6710, L3100.6900, L501.3620, M100.2200 ####[facility] [address] [place], [address] Neutrophils/100 WBC (Bld) 44.6 % Low 47-70 [facility] Comment on above: Performed By: #### L 100.0100, L3100.5800, L3100.5450, L400.0001, L3100.5700, L500.4050, L101.9900, L501.6710, L3100.6900, L501.3620, M100.2200 ####[facility] [address] [place], [address] Nucleated RBC (Bld) [#/Vol] 0 10*3/uL Normal 0-5 [facility] Comment on above: Performed By: #### L 100.0100, L3100.5800, L3100.5450, L400.0001, L3100.5700, L500.4050, L101.9900, L501.6710, L3100.6900, L501.3620, M100.2200 ####[facility] [address] [place], [address] Platelet mean volume (Bld) [Entitic vol] 9.7 fL Normal 6.2-12.0 [facility] Comment on above: Performed By: #### L 100.0100, L3100.5800, L3100.5450, L400.0001, L3100.5700, L500.4050, L101.9900, L501.6710, L3100.6900, L501.3620, M100.2200 ####[facility] [address] [place], [address] Platelets (Bld) [#/Vol] 245 10*3/uL Normal 150-450 [facility] Comment on above: Performed By: #### L 100.0100, L3100.5800, L3100.5450, L400.0001, L3100.5700, L500.4050, L101.9900, L501.6710, L3100.6900, L501.3620, M100.2200 ####[facility] [address] [place], [address] RBC (Bld) [#/Vol] 3.85 10*6/uL Low 4.2-5.4 [facility] Comment on above: Performed By: #### L 100.0100, L3100.5800, L3100.5450, L400.0001, L3100.5700, L500.4050, L101.9900, L501.6710, L3100.6900, L501.3620, M100.2200 ####[facility] [address] [place], [address] RDW SD 46.5 fl High 35.1-43.9 [facility] Comment on above: Performed By: #### L 100.0100, L3100.5800, L3100.5450, L400.0001, L3100.5700, L500.4050, L101.9900, L501.6710, L3100.6900, L501.3620, M100.2200 ####[facility] [address] [place], [address] WBC (Bld) [#/Vol] 3.1 10*3/uL Low 4.4-11.0 [facility] Comment on above: Performed By: #### L 100.0100, L3100.5800, L3100.5450, L400.0001, L3100.5700, L500.4050, L101.9900, L501.6710, L3100.6900, L501.3620, M100.2200 ####[facility] [address] [place], [place], [id number] CPK Total, Creatine Kinaseon 09-23-2023 CPK TOTAL 48 U/L Normal 26-192 [facility] Comment on above: Performed By: #### L 100.0100, L3100.5800, L3100.5450, L400.0001, L3100.5700, L500.4050, L101.9900, L501.6710, L3100.6900, L501.3620, M100.2200 ####[facility] [address] [place], [address] CRPon 09-23-2023 C-REACTIVE PROT < 2.90 Normal 0.0-3.0 [facility] Comment on above: Result Comment: C-Re active Protein (CRP) provides useful information for the diagnosis, therapy and monitoring of inflammatory processes and associated diseases. For the evaluation of Relative Risk for Cardiovascular Disease, a High Sensitivity CRP (HSCRP) should be ordered. Performed By: #### L 100.0100, L3100.5800, L3100.5450, L400.0001, L3100.5700, L500.4050, L101.9900, L501.6710, L3100.6900, L501.3620, M100.2200 ####[facility] [address] [place], [address] Comprehensive Metabolic Prof ilon 09-23-2023 Albumin [Mass/Vol] 3.2 g/dL Normal 3.2-5.0 [facility] Comment on above: Performed By: #### L 100.0100, L3100.5800, L3100.5450, L400.0001, L3100.5700, L500.4050, L101.9900, L501.6710, L3100.6900, L501.3620, M100.2200 ####[facility] [address] [place], [place], [id number] Albumin/Globulin [Mass ratio] 1.0 {ratio} Normal 0.9-2.4 [facility] Comment on above: Performed By: #### L 100.0100, L3100.5800, L3100.5450, L400.0001, L3100.5700, L500.4050, L101.9900, L501.6710, L3100.6900, L501.3620, M100.2200 ####[facility] [address] [facility] [place], [address] ALK P 94 U/L Normal 45-117 [facility] Comment on above: Performed By: #### L 100.0100, L3100.5800, L3100.5450, L400.0001, L3100.5700, L500.4050, L101.9900, L501.6710, L3100.6900, L501.3620, M100.2200 ####[facility] [address] [facility] [place], [address] ALT [Catalytic activity/Vol] 19 U/L Normal 13-56 [facility] Comment on above: Performed By: #### L 100.0100, L3100.5800, L3100.5450, L400.0001, L3100.5700, L500.4050, L101.9900, L501.6710, L3100.6900, L501.3620, M100.2200 ####[facility] [address] [facility] [place], [address] AST [Catalytic activity/Vol] 18 U/L Normal 15-37 [facility] Comment on above: Performed By: #### L 100.0100, L3100.5800, L3100.5450, L400.0001, L3100.5700, L500.4050, L101.9900, L501.6710, L3100.6900, L501.3620, M100.2200 ####[facility] [id number] [place], [address] Bilirubin [Mass/Vol] 0.40 mg/dL Normal 0.20-1.[address] [facility] Comment on above: Result Comment: For patients on eltrombopag therapy, use of Dimension Arrey TBIL is not recommended. Performed By: #### L 100.0100, L3100.5800, L3100.5450, L400.0001, L3100.5700, L500.4050, L101.9900, L501.6710, L3100.6900, L501.3620, M100.2200 ####[facility] [id number] [place], [place], [id number]) BUN/CRE 28.0 RATIO High 10-20 [facility] Comment on above: Performed By: #### L 100.0100, L3100.5800, L3100.5450, L400.0001, L3100.5700, L500.4050, L101.9900, L501.6710, L3100.6900, L501.3620, M100.2200 ####[facility] [id number] [place], [address] CA,Total 8.5 mg/dL Normal 8.5-10.1 [facility] Comment on above: Performed By: #### L 100.0100, L3100.5800, L3100.5450, L400.0001, L3100.5700, L500.4050, L101.9900, L501.6710, L3100.6900, L501.3620, M100.2200 ####[facility] [id number] [place], [address] Chloride [Moles/Vol] 107 mmol/L Normal 98-[address] [facility] Comment on above: Performed By: #### L 100.0100, L3100.5800, L3100.5450, L400.0001, L3100.5700, L500.4050, L101.9900, L501.6710, L3100.6900, L501.3620, M100.2200 ####[facility] [address] [place], [place], [phone] CO2 [Moles/Vol] 30.0 mmol/L Normal 21.0-32.0 [facility] Comment on above: Performed By: #### L 100.0100, L3100.5800, L3100.5450, L400.0001, L3100.5700, L500.4050, L101.9900, L501.6710, L3100.6900, L501.3620, M100.2200 ####[facility] [address] [place], [place], [phone](341) Creatinine [Mass/Vol] 0.61 mg/dL Normal 0.55-1.02 [facility] Comment on above: Result Comment: The validity of the calculated GFR GFRAA in patients over 70 years has not been determined. Clinical correlation is essential. Performed By: #### L 100.0100, L3100.5800, L3100.5450, L400.0001, L3100.5700, L500.4050, L101.9900, L501.6710, L3100.6900, L501.3620, M100.2200 ####[facility] [address] [place], [address] EST GFR - AA 124 mL/min Normal >60 [facility] Comment on above: Result Comment: Afri can Jamaican GFR Calc Performed By: #### L 100.0100, L3100.5800, L3100.5450, L400.0001, L3100.5700, L500.4050, L101.9900, L501.6710, L3100.6900, L501.3620, M100.2200 ####[facility] [address] [place], [place], [phone] GAP 4 Low 5-15 [facility] Comment on above: Performed By: #### L 100.0100, L3100.5800, L3100.5450, L400.0001, L3100.5700, L500.4050, L101.9900, L501.6710, L3100.6900, L501.3620, M100.2200 ####[facility] [address] [place], [address] GFR/1.73 sq M.predicted among non-blacks MDRD (S/P/Bld) [Vol rate/Area] 102 mL/min/{1.73_m2} Normal >60 [facility] Comment on above: Result Comment: Non- GFR Calc Performed By: #### L 100.0100, L3100.5800, L3100.5450, L400.0001, L3100.5700, L500.4050, L101.9900, L501.6710, L3100.6900, L501.3620, M100.2200 ####[facility] [address] [place], [address] Globulin (S) [Mass/Vol] 3.1 g/dL Normal 2.2-4.2 [facility] Comment on above: Performed By: #### L 100.0100, L3100.5800, L3100.5450, L400.0001, L3100.5700, L500.4050, L101.9900, L501.6710, L3100.6900, L501.3620, M100.2200 ####[facility] [address] [place], [address] Glucose [Mass/Vol] 87 mg/dL Normal 74-106 [facility] Comment on above: Performed By: #### L 100.0100, L3100.5800, L3100.5450, L400.0001, L3100.5700, L500.4050, L101.9900, L501.6710, L3100.6900, L501.3620, M100.2200 ####[facility] [address] [place], [address] Potassium [Moles/Vol] 4.0 mmol/L Normal 3.5-5.1 [facility] Comment on above: Performed By: #### L 100.0100, L3100.5800, L3100.5450, L400.0001, L3100.5700, L500.4050, L101.9900, L501.6710, L3100.6900, L501.3620, M100.2200 ####[facility] [address] [place], [address] Sodium [Moles/Vol] 141 mmol/L Normal 136-145 [facility] Comment on above: Performed By: #### L 100.0100, L3100.5800, L3100.5450, L400.0001, L3100.5700, L500.4050, L101.9900, L501.6710, L3100.6900, L501.3620, M100.2200 ####[facility] [address] [place], [address] T PROT 6.3 g/dL Low 6.4-8.2 [facility] Comment on above: Performed By: #### L 100.0100, L3100.5800, L3100.5450, L400.0001, L3100.5700, L500.4050, L101.9900, L501.6710, L3100.6900, L501.3620, M100.2200 ####[facility] [address] [place], [address] Urea nitrogen [Mass/Vol] 17 mg/dL Normal 7-18 [facility] Comment on above: Performed By: #### L 100.0100, L3100.5800, L3100.5450, L400.0001, L3100.5700, L500.4050, L101.9900, L501.6710, L3100.6900, L501.3620, M100.2200 ####[facility] [address] [place], [address] Erythrocyte Sed Rateon 09-22 SED RATE 5 mm/hr Normal 0-30 [facility] Comment on above: Performed By: #### L 100.0100, L3100.5800, L3100.5450, L400.0001, L3100.5700, L500.4050, L101.9900, L501.6710, L3100.6900, L501.3620, M100.2200 ####[facility] [address] [place], [address] Urinalysis, Completeon 09-22 BACTERIA 1+ /hpf Normal None Seen [facility] Comment on above: Order Comment: CLEAN CATCH Performed By: #### L 100.0100, L3100.5800, L3100.5450, L400.0001, L3100.5700, L500.4050, L101.9900, L501.6710, L3100.6900, L501.3620, M100.2200 ####[facility] [address] [place], [address] EPI,SQUAMOUS 0-5 SEEN Normal 5-10 [facility] Comment on above: Order Comment: CLEAN CATCH Performed By: #### L 100.0100, L3100.5800, L3100.5450, L400.0001, L3100.5700, L500.4050, L101.9900, L501.6710, L3100.6900, L501.3620, M100.2200 ####[facility] [address] [place], [address] WBC 0-5 SEEN Normal 0-5 [facility] Comment on above: Order Comment: CLEAN CATCH Performed By: #### L 100.0100, L3100.5800, L3100.5450, L400.0001, L3100.5700, L500.4050, L101.9900, L501.6710, L3100.6900, L501.3620, M100.2200 ####[facility] [address] [place], [address] Mucus Ql (Urine sed) 0 SEEN Normal [facility] Comment on above: Order Comment: CLEAN CATCH Performed By: #### L 100.0100, L3100.5800, L3100.5450, L400.0001, L3100.5700, L500.4050, L101.9900, L501.6710, L3100.6900, L501.3620, M100.2200 ####[facility] [address] [place], [address] RBC 0 SEEN Normal 0-5 [facility] Comment on above: Order Comment: CLEAN CATCH Performed By: #### L 100.0100, L3100.5800, L3100.5450, L400.0001, L3100.5700, L500.4050, L101.9900, L501.6710, L3100.6900, L501.3620, M100.2200 ####[facility] [address] [facility] [place], [address] Wound Ctr History AND Physic mikal 09-15-2023 Wound Ctr History & Physical [facility] [address] [place] [address] H P Exam - Wound Care 09/15/23 1531 MR#: [id number] Acct: [id number] Name: AYESHA CASTREJON Rep #: [id number] : 1950 72 From: Tameka Connolly NP [employer]ACH[employer]-C PCP: Dr. Malvin Douglas MD Status:REG RCR Location: History of Present Illness Date of Service: 09/15/23 Chief Complaint: Right finger tip injury from using a mandoline slicer History of Wound: 72 year old female presents for evaluation of a finger injury to her right ring finger on the tip near the ulnar surface. She states that last week (09/09/23) she was using a new [employer] Reliefoline slicer to cut cucumbers when she accidentally sliced her right ring finger. She went to the [facility] urgent care where they used silver nitrate to help control the bleeding. She has been keeping the area clean and dry and covered as instructed. She now has a dry, black scab from the silver nitrate. She did receive her updated Tetanus vaccine. 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 She denies diabetes, heart disease, HTN. Today she denies fever, chills, nausea or vomiting. Progress of Wound: Right ring finger on ulnar tip of finger she has a dry, black scab from silver nitrate chemical cautery. She states that she has been keeping the area clean and dry as instructed. She has been wearing a bag over her hand in the shower. She states that it is still very sensitive to touch. [facility] Medical History Laceration of right ring finger Osteoporosis Brain tumor Pericardial effusion Hypothyroidism GERD (gastroesophageal reflux disease) RLS (restless legs syndrome) Malignant neoplasm of colon Malignant neoplasm of kidney DDD (degenerative disc disease) Hyperlipidemia Premature ventricular contraction Premature atrial contractions Home Medications ???Medication ???Instructions ???Recorded ???Last Taken ???Type levothyroxine 50 mcg tablet 50 mcg PO DAILY 10/03/13 10/01/13 History vitamins B1 B6 B12 tablet 1 tab PO DAILY 10/20/20 Unknown History Prolia 60 mg/mL subcutaneous 60 mg subcut [id number] #1 mL 09/17/21 Unknown Rx syringe (denosumab) cholecalciferol (vitamin D3) 25 4,000 unit PO DAILY 04/03/22 Unknown History mcg (1,000 unit) tablet ipratropium bromide 42 mcg (0.06 2 spray intranasal .q8 04/03/22 Unknown History %) nasal spray omeprazole 40 mg capsule,delayed 40 mg PO DAILY 04/03/22 Unknown History release gabapentin 100 mg capsule 200 mg PO QHS 04/23/23 Unknown History leucovorin 4 mg-pyridoxal 1 tab-cap PO DAILY #30 tabs 09/01/23 Unknown Rx phosphate 50 mg-mecobalamin 2 mg tablet (Folinic-Plus) potassium chloride 10 mEq 10 meq PO QHS #30 tabs 09/01/23 Unknown Rx tablet,extended release ropinirole 1 mg tablet 1 mg PO QHS #30 tabs 09/01/23 Unknown Rx celecoxib 200 mg capsule 200 mg PO DAILY 09/15/23 Unknown History terbinafine HCl 250 mg tablet 250 mg PO DAILY 09/15/23 Unknown History Allergy/AdvReac Type Severity Reaction Status Date / Time meperidine (From Demerol) AdvReac Severe Nausea Verified 09/15/23 14:14 Family History Father CAD (coronary artery disease) Hx of CABG Mother History of permanent cardiac pacemaker placement Surgical History History of eyelid surgery History of cochlear implant History of vein stripping History of shoulder surgery History of tubal ligation History of hysterectomy History of tonsillectomy Social History Smoking Status: Never smoker alcohol intake: current details: occasional ROS Constitutional Constitutional: Denies chills or fever(s) Eyes Eyes: Reports none ENT HEENT: Reports as per HPI Cardiovascular Cardiovascular: Denies chest pain, dyspnea or edema Respiratory/Chest Respiratory/Chest: Denies cough or dyspnea Gastrointestinal Gastrointestinal: Reports none Musculoskeletal Musculoskeletal: Reports as per HPI Integumentary Integumentary: Reports as per HPI Neurologic Neurologic: Reports as per HPI Psychiatric Psychiatric: Reports none Endocrine Endocrinology: Reports none Hematologic/Lymphatic Hematologic/Lymphatic: Reports none Vital Signs Vital Signs Vital Signs: 09/15/23 14:16 Temperature 97.1 F L Temperature Source Temporal Pulse Rate 67 Respiratory Rate 18 Blood Pressure 119/43 L Blood Pressure Mean 68 Blood Pressure Source Monitor Blood Pressure Position Semi-Fowlers Blood Pressure Location Left Arm Oxygen Delivery Method Room Air (more content not included)... Normal [facility] Calcaneus min 2 Viewson 08-18 Calcaneus min 2 Views [facility] [address] [place] [place], [place] [id number] Calcaneus min 2 Views MR#: [id number] Acct: [id number] Name: AYESHA CASTREJON Rep #: [id number] : 1950 F 72 From: Robyn Aragon MD PCP: Dr. Malvin Douglas MD Status: [facility] CL Study: Calcaneus min 2 Views Date of Exam: 09/09/23 Exam# [id number] Ordering Dr: Malvin Douglas [id number] STUDY: X-RAY - RIGHT CALCANEUS REASON FOR EXAM: Female, 72 years old. pain, shantal deformity TECHNIQUE: 2 view(s) of the calcaneus were obtained. COMPARISON: 03/26/2012 FINDINGS: Normal visualized calcaneus. There is a plantar calcaneal spur. There is enthesophyte formation of the posterior superior calcaneus at the site of insertion of the Achilles tendon. RAD/Calcaneus min 2 Views IMPRESSION: Normal x-ray examination of the calcaneus. Electronically Signed: Robyn Aragon MD at 14:33 EDT , CC: Dr. Malvin Douglas MD Aircraft Load Controller: Signed Normal [facility] Urgent Care Visit Reporton 0 09-09-2023 Urgent Care Visit Report [facility] [address], [address] [place] [address] OFFICE VISIT Date of Service: 09/09/23 MR#: [id number] Acct: [id number] Name: AYESHA CASTREJON Rep #: [id number] : 1950 Provider: MIKAELA Moore Age/Sex: 72/F Location: [facility] Status: Signed Intake Vital Signs 09/01/23 13:52 09/09/23 16:18 Height 5 ft 0.5 in Weight: 114 lb 13 oz BMI 22.0 BP 138/80 H 116/68 Blood Pressure Location Lt brachial Lt brachial Position Sitting Sitting Respiration 17 12 Pulse 71 64 Pulse Source Monitor Monitor Temp 97.8 F 98.7 F Temp Source Temporal Temporal Pulse Oximetry (%) 99 96 Oxygen Delivery Method room air room air Intake Visit Reasons: RIGHT RING FINGER LAC Chief Complaint: RRF DP laceration Allergies meperidine (From Demerol) Adverse Reaction (Severe, Verified 09/09/23 16:18) Nausea Have you fallen in the past year?: No [facility] Medical History (Updated 09/09/23 @ 17:33 by Mikey AL, PA) Laceration of right ring finger Osteoporosis Brain tumor Pericardial effusion Hypothyroidism GERD (gastroesophageal reflux disease) RLS (restless legs syndrome) Malignant neoplasm of colon Malignant neoplasm of kidney DDD (degenerative disc disease) Hyperlipidemia Premature ventricular contraction Premature atrial contractions Surgical History History of eyelid surgery History of cochlear implant History of vein stripping History of shoulder surgery History of tubal ligation History of hysterectomy History of tonsillectomy Family History Father CAD (coronary artery disease) Hx of CABG Mother History of permanent cardiac pacemaker placement Social History Smoking Status: Former smoker alcohol intake: current details: occasional HPI HPI Chief Complaint: RRF DP laceration Details: AYESHA CASTREJON, is a 72 F who presents to the office today for initial evaluation status post right ring finger DP avulsion laceration suffered while cutting vegetables with sharpened blade knife immediately prior to arrival here today. Localized bleeding is unknown able to be controlled therefore here for further evaluation. [id number]-[id number]. PMH NC. Unknown last Td. No loss of sensation or strength or function of the same. No other associated symptoms and no other alleviating/aggravating factors. ROS Const Constitutional: No other (As above) Exam Const General: cooperative, healthy appearing and no acute distress Orientation: alert and awake Resp Effort Inspection: normal respiratory effort and able to speak in complete sentences Cardio Rate: regular rate Pulses: radial pulses present Skin General: no rashes or lesions noted Trauma: laceration (RRF DP avulsion 1.5 cm diameter; see procedure below) Other: Procedure note: Right ring finger laceration site was sterilely prepped and cleansed with Hibiclens and saline after field block with 1 mL of 2% lidocaine circumferential to wound site. 3 silver nitrate sticks were used to cauterize the site with bleeding well-controlled thereafter. Patient tolerated procedure well. Site was cleansed then redressed with dressing and Coban. Neuro General: patient alert and patient awake Speech: speech normal Motor: muscle tone normal throughout Sensory Exam: no sensory deficits noted Extrem General: full ROM, capillary refill normal and normal exam except as noted (See skin exam) Psych Appearance: grossly normal Mental Status: mental status grossly normal Mood: congruent mood Affect: normal affect Speech and Movement: speech and movement normal Attitude: cooperative Immunizations Adacel(Tdap Adolesn/Adult)(PF) 2Lf-(2.5-5-3-5mcg)-5 Lf/0.5 mL IM susp Performing Provider: Mikey AL PA Performing Location: [facility] Administered by: Valentine Russell on 09/09/23 16:38 Dose Route Admin Location Dispensed Lot Number Expiration Date [facility] Man ufacturer 0.5 mL IM Right Deltoid 0.5 mL [id number] 03/20/25 24375-008-18 [employer] VIS Given Date VIS Provided VIS Publication Date 09/09/23 Single Vaccine 20 Eligibility Eligibility Date Funding Source Not Applicable Coding Level of Care Code Off vis,est,level 3 Diagnoses Laceration of right ring finger S61.214A Assessment and Plan Assessment and Plan (1) Laceration of right ring finger: Status: Acute Plan: Cautery procedure as described above; twice daily wound care as instructed today. Tdap updated today. Supportive measures as instructed today. Follow-up with PCP in 5 to 7 days should symptoms not improve, sooner should symptoms only (more content not included)... Normal [facility] CBC W/Diff, Automatedon 08-17 Absolute Lymph 1.66 X10 3/uL Normal 0.83-4.51 [facility] Comment on above: Performed By: #### L 100.0100, L506.1000, L503.6550, L503.0105, L503.6150, L501.9520, L500.4050 #### [facility] [address] [place], [address] Absolute Neut 2.8 X10 3/uL Normal 2.0-7.7 [facility] Comment on above: Performed By: #### L 100.0100, L506.1000, L503.6550, L503.0105, L503.6150, L501.9520, L500.4050 #### [facility] [address] [place], [address] Basophils/100 WBC (Bld) 1.0 % Normal 0-1 [facility] Comment on above: Performed By: #### L 100.0100, L506.1000, L503.6550, L503.0105, L503.6150, L501.9520, L500.4050 #### [facility] [address] [place], [address] Eosinophils/100 WBC (Bld) 3.5 % Normal 0-5 [facility] Comment on above: Performed By: #### L 100.0100, L506.1000, L503.6550, L503.0105, L503.6150, L501.9520, L500.4050 #### [facility] [address] [place], [address] Erythrocyte distribution width (RBC) [Ratio] 12.9 % Normal 11.6-14.6 [facility] Comment on above: Performed By: #### L 100.0100, L506.1000, L503.6550, L503.0105, L503.6150, L501.9520, L500.4050 #### [facility] [address] [place], [address] Hematocrit (Bld) [Volume fraction] 40.5 % Normal 37-47 [facility] Comment on above: Performed By: #### L 100.0100, L506.1000, L503.6550, L503.0105, L503.6150, L501.9520, L500.4050 #### [facility] [address] [place], [address] Hemoglobin (Bld) [Mass/Vol] 12.8 g/dL Normal 12.0-15.0 [facility] Comment on above: Performed By: #### L 100.0100, L506.1000, L503.6550, L503.0105, L503.6150, L501.9520, L500.4050 #### [facility] [address] [place], [address] IG% 0.200 Normal 0.0-0.9 [facility] Comment on above: Result Comment: IG% - Immature Granulocytes (promyelocytes, myelocytes and metamyelocytes) > 1% indicates that a LEFT SHIFT is Present. Performed By: #### L 100.0100, L506.1000, L503.6550, L503.0105, L503.6150, L501.9520, L500.4050 #### [facility] [address] [place], [address] Lymphocytes/100 WBC (Bld) 31.9 % Normal 19-41 [facility] Comment on above: Performed By: #### L 100.0100, L506.1000, L503.6550, L503.0105, L503.6150, L501.9520, L500.4050 #### [facility] [address] [place], [address] MCH (RBC) [Entitic mass] 30.6 pg Normal 27.0-32.0 [facility] Comment on above: Performed By: #### L 100.0100, L506.1000, L503.6550, L503.0105, L503.6150, L501.9520, L500.4050 #### [facility] [address] [place], [address] MCHC (RBC) [Mass/Vol] 31.6 g/dL Low 32-36 [facility] Comment on above: Performed By: #### L 100.0100, L506.1000, L503.6550, L503.0105, L503.6150, L501.9520, L500.4050 #### [facility] [address] [place], [address] MCV (RBC) [Entitic vol] 96.9 fL Normal 81-99 [facility] Comment on above: Performed By: #### L 100.0100, L506.1000, L503.6550, L503.0105, L503.6150, L501.9520, L500.4050 #### [facility] [address] [place], [address] Monocytes/100 WBC (Bld) 10.7 % High 0-10 [facility] Comment on above: Performed By: #### L 100.0100, L506.1000, L503.6550, L503.0105, L503.6150, L501.9520, L500.4050 #### [facility] [address] [place], [address] Neutrophils/100 WBC (Bld) 52.7 % Normal 47-70 [facility] Comment on above: Performed By: #### L 100.0100, L506.1000, L503.6550, L503.0105, L503.6150, L501.9520, L500.4050 #### [facility] [address] [place], [address] Nucleated RBC (Bld) [#/Vol] 0 10*3/uL Normal 0-5 [facility] Comment on above: Performed By: #### L 100.0100, L506.1000, L503.6550, L503.0105, L503.6150, L501.9520, L500.4050 #### [facility] [address] [place], [address] Platelet mean volume (Bld) [Entitic vol] 9.7 fL Normal 6.2-12.0 [facility] Comment on above: Performed By: #### L 100.0100, L506.1000, L503.6550, L503.0105, L503.6150, L501.9520, L500.4050 #### [facility] [address] [place], [address] Platelets (Bld) [#/Vol] 282 10*3/uL Normal 150-450 [facility] Comment on above: Performed By: #### L 100.0100, L506.1000, L503.6550, L503.0105, L503.6150, L501.9520, L500.4050 #### [facility] [address] [place], [address] RBC (Bld) [#/Vol] 4.18 10*6/uL Low 4.2-5.4 [facility] Comment on above: Performed By: #### L 100.0100, L506.1000, L503.6550, L503.0105, L503.6150, L501.9520, L500.4050 #### [facility] [address] [place], [address] RDW SD 45.7 fl High 35.1-43.9 [facility] Comment on above: Performed By: #### L 100.0100, L506.1000, L503.6550, L503.0105, L503.6150, L501.9520, L500.4050 #### [facility] [address] [place], [address] WBC (Bld) [#/Vol] 5.2 10*3/uL Normal 4.4-11.0 [facility] Comment on above: Performed By: #### L 100.0100, L506.1000, L503.6550, L503.0105, L503.6150, L501.9520, L500.4050 #### [facility] [address] [place], [address] Comprehensive Metabolic Prof [facility] 09-05-2023 Albumin [Mass/Vol] 3.4 g/dL Normal 3.2-5.0 [facility] Comment on above: Order Comment: Order Date: 09/05/23 Order Info: [id number] - LIPID Order Date: 06/12/23 Order Info: [id number] - T4F Performed By: #### L 100.0100, L506.1000, L503.6550, L503.0105, L503.6150, L501.9520, L500.4050 #### [facility] [address] [place], [address] Albumin/Globulin [Mass ratio] 1.2 {ratio} Normal 0.9-2.4 [facility] Comment on above: Order Comment: Order Date: 09/05/23 Order Info: [id number] - LIPID Order Date: 06/12/23 Order Info: [id number] - T4F Performed By: #### L 100.0100, L506.1000, L503.6550, L503.0105, L503.6150, L501.9520, L500.4050 #### [facility] [address] [place], [address] ALK P 106 U/L Normal 45-117 [facility] Comment on above: Order Comment: Order Date: 09/05/23 Order Info: [id number] - LIPID Order Date: 06/12/23 Order Info: [id number] - T4F Performed By: #### L 100.0100, L506.1000, L503.6550, L503.0105, L503.6150, L501.9520, L500.4050 #### [facility] [address] [place], [address] ALT [Catalytic activity/Vol] 20 U/L Normal 13-56 [facility] Comment on above: Order Comment: Order Date: 09/05/23 Order Info: [id number] - LIPID Order Date: 06/12/23 Order Info: [id number] - T4F Performed By: #### L 100.0100, L506.1000, L503.6550, L503.0105, L503.6150, L501.9520, L500.4050 #### [facility] [address] [place], [address] AST [Catalytic activity/Vol] 17 U/L Normal 15-37 [facility] Comment on above: Order Comment: Order Date: 09/05/23 Order Info: [id number] - LIPID Order Date: 06/12/23 Order Info: [id number] - T4F Performed By: #### L 100.0100, L506.1000, L503.6550, L503.0105, L503.6150, L501.9520, L500.4050 #### [facility] [address] [place], [address] Bilirubin [Mass/Vol] 0.50 mg/dL Normal 0.20-1.[address] [facility] Comment on above: Order Comment: Order Date: 09/05/23 Order Info: [id number] - LIPID Order Date: 06/12/23 Order Info: [id number] - T4F Result Comment: For patients on eltrombopag therapy, use of Dimension Arrey TBIL is not recommended. Performed By: #### L 100.0100, L506.1000, L503.6550, L503.0105, L503.6150, L501.9520, L500.4050 #### [facility] [address] [place], [address] BUN/CRE 34.4 RATIO High 10-20 [facility] Comment on above: Order Comment: Order Date: 09/05/23 Order Info: [id number] - LIPID Order Date: 06/12/23 Order Info: [id number] - T4F Performed By: #### L 100.0100, L506.1000, L503.6550, L503.0105, L503.6150, L501.9520, L500.4050 #### [facility] [address] [place], [address] CA,Total 8.8 mg/dL Normal 8.5-10.1 [facility] Comment on above: Order Comment: Order Date: 09/05/23 Order Info: [id number] - LIPID Order Date: 06/12/23 Order Info: 3024-7 - T4F Performed By: #### L 100.0100, L506.1000, L503.6550, L503.0105, L503.6150, L501.9520, L500.4050 #### [facility] [address] [place], [address] Chloride [Moles/Vol] 104 mmol/L Normal 98-[address] [facility] Comment on above: Order Comment: Order Date: 09/05/23 Order Info: [id number] - LIPID Order Date: 06/12/23 Order Info: 3024-7 - T4F Performed By: #### L 100.0100, L506.1000, L503.6550, L503.0105, L503.6150, L501.9520, L500.4050 #### [facility] [address] [place], [address] CO2 [Moles/Vol] 30.0 mmol/L Normal 21.0-32.0 [facility] Comment on above: Order Comment: Order Date: 09/05/23 Order Info: [id number] - LIPID Order Date: 06/12/23 Order Info: 3024-7 - T4F Performed By: #### L 100.0100, L506.1000, L503.6550, L503.0105, L503.6150, L501.9520, L500.4050 #### [facility] [address] [place], [address] Creatinine [Mass/Vol] 0.64 mg/dL Normal 0.55-1.02 [facility] Comment on above: Order Comment: Order Date: 09/05/23 Order Info: [id number] - LIPID Order Date: 06/12/23 Order Info: 3024-7 - T4F Result Comment: The validity of the calculated GFR GFRAA in patients over 70 years has not been determined. Clinical correlation is essential. Performed By: #### L 100.0100, L506.1000, L503.6550, L503.0105, L503.6150, L501.9520, L500.4050 #### [facility] [address] [place], [address] EST GFR - AA 117 mL/min Normal >60 [facility] Comment on above: Order Comment: Order Date: 09/05/23 Order Info: [id number] - LIPID Order Date: 06/12/23 Order Info: 3024-7 - T4F Result Comment: Afri can Jamaican GFR Calc Performed By: #### L 100.0100, L506.1000, L503.6550, L503.0105, L503.6150, L501.9520, L500.4050 #### [facility] [address] [place], [address] GAP 5 Normal 5-15 [facility] Comment on above: Order Comment: Order Date: 09/05/23 Order Info: [id number] - LIPID Order Date: 06/12/23 Order Info: 3024-7 - T4F Performed By: #### L 100.0100, L506.1000, L503.6550, L503.0105, L503.6150, L501.9520, L500.4050 #### [facility] [address] [place], [address] GFR/1.73 sq M.predicted among non-blacks MDRD (S/P/Bld) [Vol rate/Area] 96 mL/min/{1.73_m2} Normal >60 [facility] Comment on above: Order Comment: Order Date: 09/05/23 Order Info: [id number] - LIPID Order Date: 06/12/23 Order Info: 3024-7 - T4F Result Comment: Non- GFR Calc Performed By: #### L 100.0100, L506.1000, L503.6550, L503.0105, L503.6150, L501.9520, L500.4050 #### [facility] [address] [place], [address] Globulin (S) [Mass/Vol] 2.9 g/dL Normal 2.2-4.2 [facility] Comment on above: Order Comment: Order Date: 09/05/23 Order Info: [id number] - LIPID Order Date: 06/12/23 Order Info: 3024-7 - T4F Performed By: #### L 100.0100, L506.1000, L503.6550, L503.0105, L503.6150, L501.9520, L500.4050 #### [facility] [address] [place], [address] Glucose [Mass/Vol] 89 mg/dL Normal 74-106 [facility] Comment on above: Order Comment: Order Date: 09/05/23 Order Info: [id number] - LIPID Order Date: 06/12/23 Order Info: 3024-7 - T4F Performed By: #### L 100.0100, L506.1000, L503.6550, L503.0105, L503.6150, L501.9520, L500.4050 #### [facility] [address] [place], [address] Potassium [Moles/Vol] 4.7 mmol/L Normal 3.5-5.1 [facility] Comment on above: Order Comment: Order Date: 09/05/23 Order Info: [id number] - LIPID Order Date: 06/12/23 Order Info: 3024-7 - T4F Performed By: #### L 100.0100, L506.1000, L503.6550, L503.0105, L503.6150, L501.9520, L500.4050 #### [facility] [address] [place], [address] Sodium [Moles/Vol] 139 mmol/L Normal 136-145 [facility] Comment on above: Order Comment: Order Date: 09/05/23 Order Info: [id number] - LIPID Order Date: 06/12/23 Order Info: 3024-7 - T4F Performed By: #### L 100.0100, L506.1000, L503.6550, L503.0105, L503.6150, L501.9520, L500.4050 #### [facility] [address] [place], [address] T PROT 6.3 g/dL Low 6.4-8.2 [facility] Comment on above: Order Comment: Order Date: 09/05/23 Order Info: [id number] - LIPID Order Date: 06/12/23 Order Info: 3024-7 - T4F Performed By: #### L 100.0100, L506.1000, L503.6550, L503.0105, L503.6150, L501.9520, L500.4050 #### [facility] [address] [place], [address] Urea nitrogen [Mass/Vol] 22 mg/dL High 7-18 [facility] Comment on above: Order Comment: Order Date: 09/05/23 Order Info: [id number] - LIPID Order Date: 06/12/23 Order Info: 3024-7 - T4F Performed By: #### L 100.0100, L506.1000, L503.6550, L503.0105, L503.6150, L501.9520, L500.4050 #### [facility] [address] [place], [address] Ferritinon 09-05-2023 Ferritin [Mass/Vol] 57 ng/mL Normal 8-252 [facility] Comment on above: Order Comment: Order Date: 09/05/23 Order Info: [id number] - LIPID Order Date: 06/12/23 Order Info: 3024-7 - T4F Performed By: #### L 100.0100, L506.1000, L503.6550, L503.0105, L503.6150, L501.9520, L500.4050 #### [facility] [address] [place], [address] Ironon 09-05-2023 Iron [Mass/Vol] 110 ug/dL Normal 50-170 [facility] Comment on above: Order Comment: Order Date: 09/05/23 Order Info: [id number] - LIPID Order Date: 06/12/23 Order Info: 3024-7 - T4F Performed By: #### L 100.0100, L506.1000, L503.6550, L503.0105, L503.6150, L501.9520, L500.4050 #### [facility] [address] [place], [address] Lipid Profileon 09-05-2023 Cholesterol [Mass/Vol] 274 mg/dL High 200 [facility] Comment on above: Order Comment: Order Date: 09/05/23 Order Info: [id number] - LIPID Order Date: 06/12/23 Order Info: 3024-7 - T4F Result Comment: <200 mg/dL Desirable 200-240 mg/dL Borderline >240 mg/dL High Risk Performed By: #### L 100.0100, L506.1000, L503.6550, L503.0105, L503.6150, L501.9520, L500.4050 #### [facility] [address] [place], [address] Cholesterol in HDL [Mass/Vol] 100 mg/dL Normal [facility] Comment on above: Order Comment: Order Date: 09/05/23 Order Info: [id number] - LIPID Order Date: 06/12/23 Order Info: 3024-7 - T4F Result Comment: The drugs N-Acetylcysteine and Metamizole may falsely depress this assay. Reference Range HDL <40 mg/dL Low HDL Cholesterol HDL >or= 60 mg/dL High HDL Cholesterol Performed By: #### L 100.0100, L506.1000, L503.6550, L503.0105, L503.6150, L501.9520, L500.4050 #### [facility] [address] [place], [address] Cholesterol in LDL [Mass/Vol] 153 mg/dL High 0-130 [facility] Comment on above: Order Comment: Order Date: 09/05/23 Order Info: [id number] - LIPID Order Date: 06/12/23 Order Info: 3024-7 - T4F Performed By: #### L 100.0100, L506.1000, L503.6550, L503.0105, L503.6150, L501.9520, L500.4050 #### [facility] [address] [place], [address] Cholesterol in VLDL [Mass/Vol] 21 mg/dL Normal 5-40 [facility] Comment on above: Order Comment: Order Date: 09/05/23 Order Info: [id number] - LIPID Order Date: 06/12/23 Order Info: 3024-7 - T4F Performed By: #### L 100.0100, L506.1000, L503.6550, L503.0105, L503.6150, L501.9520, L500.4050 #### [facility] [address] [place], [address] Triglyceride [Mass/Vol] 104 mg/dL Normal [facility] Comment on above: Order Comment: Order Date: 09/05/23 Order Info: [id number] - LIPID Order Date: 06/12/23 Order Info: 3024-7 - T4F Result Comment: The drugs N-Acetylcysteine and Metamizole may falsely depress this assay. Serum Triglycerides Reference Interval Normal <150 mg/dL Borderline high 150 - 199 mg/dL High 200 - 499 mg/dL Very High > or = 500 mg/dL Performed By: #### L 100.0100, L506.1000, L503.6550, L503.0105, L503.6150, L501.9520, L500.4050 #### [facility] [address] [place], [address] T4 Free Directon 09-05-2023 T4 FREE DIRECT 1.17 ng/dL Normal 0.76-1.46 [facility] Comment on above: Order Comment: Order Date: 09/05/23 Order Info: [id number] - LIPID Order Date: 06/12/23 Order Info: 3024-7 - T4F Performed By: #### L 100.0100, L506.1000, L503.6550, L503.0105, L503.6150, L501.9520, L500.4050 #### [facility] [address] [place], [address] Thyroid Stim Hormone (TSH)on 09-05-2023 TSH 1.14 uIU/mL Normal 0.358-3.74 [facility] Comment on above: Order Comment: Order Date: 09/05/23 Order Info: [id number] - LIPID Order Date: 06/12/23 Order Info: 3024-7 - T4F Performed By: #### L 100.0100, L506.1000, L503.6550, L503.0105, L503.6150, L501.9520, L500.4050 #### [facility] [address] [place], [address] Vitamin B12on 09-05-2023 Cobalamin (Vitamin B12) [Mass/Vol] 607 pg/mL Normal 211-911 [facility] Comment on above: Performed By: #### L 100.0100, L506.1000, L503.6550, L503.0105, L503.6150, L501.9520, L500.4050 #### [facility] [address] [place], [address] Vitamin D,25 Hydroxyon 09-04 Vitamin D 25-OH 67.0 ng/mL Normal [facility] Comment on above: Result Comment: Andreea min D 25(OH) Status Range Deficiency <20 ng/mL (50nmol/L) Insufficiency 20 - 30 ng/mL (50 - 75 nmol/L) Sufficiency 30 - 100 ng/mL (75 - 250 nmol/L) Toxicity >100 ng/mL (>250 nmol/L) Performed By: #### L 100.0100, L506.1000, L503.6550, L503.0105, L503.6150, L501.9520, L500.4050 #### [facility] [address] [place], [address] Vitamin B1, Thiamineon 09-03 VIT B1 THIAMINE 82.7 nmol/L Normal 66.5-200.0 [facility] Comment on above: Order Comment: Test( s) 053745-Neh. B1, Whole Bloodwas developed and its performance characteristicsdetermined by [facility]. It has not been cleared or approvedby the Food and Drug Administration.UNK Result Comment: Perf ormed at: - [address] [id number] Washer Blanket: Samuel Wheeler MD, Phone: [phone] Performed By: #### L 503.0105, L506.0250, L3300.8000 ####[facility] [address] [place], [address] Folates, (Folic Acid)on 08-17 FOLATES 8.60 ng/mL Normal 3.1-55.4 [facility] Comment on above: Order Comment: UNKN Performed By: #### L 503.0105, L506.0250, L3300.8000 ####[facility] [id number] [place], [place], [address] Neurology Visit Reporton Neurology Visit Report [facility] [address], [address] [place] [address] OFFICE VISIT Date of Service: 09/01/23 MR#: [id number] Acct: [id number] Name: AYESHA CASTREJON Rep #: [id number] : 1950 Provider: Dr. Kwaku luevano MD Age/Sex: 72/F [place] [facility] [place]: Signed Intake Vital Signs 03/11/23 09:11 04/23/23 13:05 09/01/23 13:52 Height 5 ft 0.5 in 5 ft 0.5 in 5 ft 0.5 in Weight: 114 lb 13 oz BMI 22.0 BP 138/80 H Blood Pressure Location Lt brachial Position Sitting Respiration 17 Pulse 71 Pulse Source Monitor Temp 97.8 F Temp Source Temporal Pulse Oximetry (%) 99 Oxygen Delivery Method room air Intake Visit Reasons: 6 M FU Chief Complaint: cough, ST, ARMSTRONG, BA, fever, chest congestion Pneumatic Hoist Operator Required: No Accompanied by: Self Allergies meperidine (From Demerol) Adverse Reaction (Severe, Verified 09/01/23 13:54) Nausea Have you fallen in the past year?: Yes PFSH Medical History Brain tumor DDD (degenerative disc disease) GERD (gastroesophageal reflux disease) Hyperlipidemia Hypothyroidism Malignant neoplasm of colon Malignant neoplasm of kidney Osteoporosis Pericardial effusion Premature atrial contractions Premature ventricular contraction RLS (restless legs syndrome) Surgical History History of cochlear implant History of eyelid surgery History of hysterectomy History of shoulder surgery History of tonsillectomy History of tubal ligation History of vein stripping Family History Father CAD (coronary artery disease) Hx of CABG Mother History of permanent cardiac pacemaker placement Social History Smoking Status: Former smoker alcohol intake: current details: occasional HPI HPI Chief Complaint: cough, ST, [place], BA, fever, chest congestion Details: Interim History: Ayesha returns for follow-up visit. She has a history of hypothyroidism, osteoporosis and right acoustic neuroma status post resection in 2009 with residual hearing loss, right-sided facial weakness and disequilibrium. She has been experiencing bilateral leg restlessness since the . Her symptoms occur at night or during the day, if she tries to take a nap. She has a vague discomfort in the legs that is alleviated by arising to pace. Her leg restlessness is adequately controlled with ropinirole 1 mg nightly and gabapentin. Since around 2016, she has also been experiencing dysesthesias in both lower extremities that initially began in the feet and has progressed to the shins. She described the sensation as a feeling of tape wrapped around her feet and lower legs that impedes normal sensation. She also has had a burning sensation in the shins, if these areas are touched. She has mild sensory loss in the feet. She has had left lower extremity surgery for varicose veins. She is experienced prominent painful leg spasms at night. Consuming a Gatorlyte supplement has been of benefit for her leg cramps. Magnesium oxide caused diarrhea. She is taking magnesium gluconate and this has been of some benefit for her leg cramps. Potassium chloride supplementation has been of some benefit for her leg cramps. Prior use of cyclobenzaprine was not well-tolerated. Gabapentin has been of benefit for her neuropathic pain. She was diagnosed fibromyalgia and gabapentin has been effective in reducing her musculoskeletal pain. She takes gabapentin 100 mg 1 capsule every evening and 2 capsules nightly (a daytime dose was over sedating). Duloxetine was not well-tolerated. 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 She has bilateral hip pain that she stated is due to bursitis. Prior left hip corticosteroid injections were not of benefit. She has low back pain and left lower extremity sciatica for which she sees a crayon painter, Dr. Ferrara, and has been receiving lumbar injections. Chiropractic therapy was not of significant benefit. Physical Exam: Neuro: The patient is awake and alert and responds appropriately; speech is fluent; mild right-sided facial weakness is noted including right eyelid weakness; motor strength is 5/5 in the foot dorsiflexors bilaterally Neck: No bruits Heart: Regular rate and rhythm Supplemental Info Lumbar MRI (01/23/2009): FINDINGS: Normal conus medullaris terminates at L1. No intradural extramedullary lesions. T10-11: Sagittal series -- minor degenerative change without stenosis. B90-T76-M1: Sagittal series - Normal disk spaces. Patent canal and foramina. (more content not included)... Normal [facility] Vitamin B12on 09-01-2023 Cobalamin (Vitamin B12) [Mass/Vol] 553 pg/mL Normal 211-911 [facility] Comment on above: Performed By: #### L 503.0105, L506.0250, L3300.8000 ####[facility] [id number] [place], [address] No Panel Informationon 02-14 POC SARS CoV-2 Antigen Negative [facility] Influenza Types A,B Rapid (Clinic) Pos FLU A &Neg FLU B [facility] Basophil percentageOrdered B y: Hawk Douglas on 01-03-2023 Chloride [Moles/Vol] 106 mmol/L 98-[address] [facility] Glucose [Mass/Vol] 82 mg/dL 74-106 [facility] Potassium [Moles/Vol] 4.1 mmol/L 3.5-5.1 [facility] Sodium [Moles/Vol] 140 mmol/L 136-145 [facility] Laboratory - Chemistry and C hemistry - challengeOrdered By: Hawk Douglas on 01-03-2023 CO2 [Moles/Vol] 30.0 mmol/L 21.0-32.0 [facility] Urea nitrogen/Creatinine [Mass ratio] 25.6 mg/mg 10- [facility] No Panel InformationOrdered By: Hawk Douglas on 01-03-2023 Estimated GFR (MDRD) Amer 105 mL/min >60 [facility] Comment on above: GFR Calc Estimated GFR (MDRD) Non-Af Amer 87 mL/min >60 [facility] Comment on above: Non- GFR Calc Parathyroid Hormone (Intact) 49.6 pg/mL 18.4-80.1 [facility] Thyroid Stimulating Hormone (TSH) 2.08 uIU/mL 0.358-3.74 [facility] Vitamin D 25-Hydroxy 87.8 ng/mL [facility] Comment on above: Vitamin D 25(OH) Sta tus Range Deficiency <20 ng/mL (50nmol/L) Insufficiency 20 - 30 ng/mL (50 - 75 nmol/L) Sufficiency 30 - 100 ng/mL (75 - 250 nmol/L) Toxicity >100 ng/mL (>250 nmol/L) Serum or plasma calcium zaid urement (mass/volume)Ordered By: Hawk Douglas on 01-03-2023 Calcium [Mass/Vol] 8.6 mg/dL 8.5-10.1 [facility] Serum or plasma creatinine m easurement (mass/volume)Ordered By: Hawk Douglas on 01-03-2023 Creatinine [Mass/Vol] 0.70 mg/dL 0.55-1.02 [facility] Comment on above: The validity of the calculated GFR & GFRAA in patients over 70 years has not been determined. Clinical correlation is essential. Serum or plasma urea nitroge n measurement (mass/volume)Ordered By: Hawk Douglas on 01-03-2023 Urea nitrogen [Mass/Vol] 18 mg/dL 7-18 [facility] Thin prep Papanicolaou smear with manual screeningOrdered By: Hawk Douglas on 01-03-2023 Thin prep Papanicolaou smear with manual screening 4 5-15 [facility] No Panel InformationOrdered By: Adam Cruz on 10-22-2022 Endomysial IgA Antibody Negative Negative [facility] Serum IgA measurement (units /volume)Ordered By: Adam Cruz on 10-22-2022 IgA Qn (S) 70 mg/dL 64-422 [facility] Comment on above: Performed at: [address] [id number] Director: Adam Regalado PhD, Phone: [phone] Serum or plasma C reactive p rotein measurement (mass/volume)Ordered By: Adam Cruz on 10-22-2022 CRP [Mass/Vol] mg/L 0.0-3.0 [facility] Comment on above: C-Reactive Protein ( CRP) provides useful information for thediagnosis, therapy and monitoring of inflammatory processesand associated diseases. For the evaluation of Relative Riskfor Cardiovascular Disease, a High Sensitivity CRP (HSCRP)should be ordered. Serum tissue transglutaminas e IgA antibody assay (units/volume)Ordered By: Adam Cruz on 10-22-2022 tTG IgA Qn (S) <2 U/mL 0-3 [facility] Comment on above: Negative 0 - 3 Weak Positive 4 - 10 Positive >10 Tissue Transglutaminase (tTG) has been identified as the endomysial antigen. Studies have demonstr- ated that endomysial IgA antibodies have over 99% specificity for gluten sensitive enteropathy. Culture, urineOrdered By: Stewart Mike on 08-27-2022 Bacteria identified Cx Nom (U) Culture exhibits no growth. [facility] No Panel InformationOrdered By: Hawk Douglas on 08-16-2022 Stool Pancreatic Elastase > 500 >200 [facility] Comment on above: Result Units: ug Ailyn st./g Severe Pancreatic Insufficiency: <100 Moderate Pancreatic Insufficiency: 100 - 200 Normal: >200Performed at: [facility] [address] [id number] Director: Samuel Wheeler MD, Phone: [phone] Ova and parasitesOrdered By: Hawk Douglas on 08-16-2022 Ova and parasites identified LM Nom (Unsp spec) [facility] Absolute lymphocyte countOrd ered By: Caryn Jarvis on 08-09-2022 Lymphocytes Auto (Unsp spec) [#/Vol] 0.94 10*3/uL 0.83-4.51 [facility] Albumin Elph [Mass/Vol]Order ed By: Caryn Jarvis on 08-09-2022 Albumin [Mass/Vol] 3.5 g/dL 2.9-4.4 [facility] Atypical perinuclear antineu trophil cytoplasmic antibodies measurementOrdered By: Caryn Jarvis on 08-09-2022 Neutrophil cytoplasmic Ab.perinuclear.atypical IF (S) [Titer] <1:20 titer Neg:<1:20 [facility] Comment on above: The atypical pANCA p attern has been observed in asignificant percentage of patients with ulcerative colitis,primary sclerosing cholangitis and autoimmune hepatitis. Basophil percentageOrdered B y: Caryn Jarvis on 08-09-2022 Basophil percentage 0-5 SEEN /hpf 0-5 [facility] Basophil percentage < 0.2 AI 0.0-0.9 [facility] Basophils/100 WBC (Bld) 0.9 % 0-1 [facility] Bilirubin [Mass/Vol] 0.50 mg/dL 0.20-1.[address] [facility] Comment on above: For patients on eltr ombopag therapy, use of Dimension Arrey TBIL is not recommended. Chloride [Moles/Vol] 105 mmol/L 98-[address] [facility] Eosinophils/100 WBC (Bld) 1.8 % 0-5 [facility] Glucose [Mass/Vol] 93 mg/dL 74-106 [facility] Neutrophils (Bld) [#/Vol] 2.0 10*3/uL 2.0-7.7 [facility] Neutrophils/100 WBC (Bld) 59.8 % 47-70 [facility] Potassium [Moles/Vol] 3.9 mmol/L 3.5-5.1 [facility] Protein [Mass/Vol] 6.7 g/dL 6.4-8.2 [facility] Sodium [Moles/Vol] 138 mmol/L 136-145 [facility] WBC (Bld) [#/Vol] 3.4 10*3/uL 4.4-11.0 [facility] Bilirubin Test strip Ql (U)O rdered By: Caryn Jarvis on 08-09-2022 Bilirubin Ql (U) Negative Negative [facility] Blood erythrocytes count (nu mber/volume)Ordered By: Caryn Jarvis on 08-09-2022 RBC (Bld) [#/Vol] 4.40 10*6/uL 4.2-5.4 [facility] Blood hemoglobin measurement (mass/volume)Ordered By: Caryn Jarvis on 08-09-2022 Hemoglobin (Bld) [Mass/Vol] 13.7 g/dL 12.0-15.0 [facility] Blood lymphocytes/100 leukoc ytesOrdered By: Caryn Jarvis on 08-09-2022 Lymphocytes/100 WBC (Bld) 28.0 % 19-41 [facility] Blood monocytes/100 leukocyt esOrdered By: Caryn Jarvis on 08-09-2022 Monocytes/100 WBC (Bld) 9.5 % 0-10 [facility] Blood platelet mean volumeOr dered By: Caryn Jarvis on 08-09-2022 Platelet mean volume (Bld) [Entitic vol] 9.9 fL 6.2-12.0 [facility] Cerebrospinal fluid Borrelia burgdorferi 18kd IgG antibody detection by immunoblotOrdered By: Caryn Jarvis on 08-09-2022 B. burgdorferi 18kD IgG IB Ql (CSF) Absent . [facility] Cerebrospinal fluid Borrelia burgdorferi 23kD IgG antibody detection by immunoblotOrdered By: Caryn Jarvis on 08-09-2022 B. burgdorferi 23kD IgG IB Ql (CSF) Absent . [facility] Cerebrospinal fluid Borrelia burgdorferi 23kD IgM antibody detection by immunoblotOrdered By: Caryn Jarvis on 08-09-2022 B. burgdorferi 23kD IgM IB Ql (CSF) Absent . [facility] Cerebrospinal fluid Borrelia burgdorferi 28kD IgG antibody detection by immunoblotOrdered By: Caryn Jarvis on 08-09-2022 B. burgdorferi 28kD IgG IB Ql (CSF) Absent . [facility] Cerebrospinal fluid Borrelia burgdorferi 39kD IgG antibody detection by immunoblotOrdered By: Caryn Jarvis on 08-09-2022 B. burgdorferi 39kD IgG IB Ql (CSF) Absent . [facility] Cerebrospinal fluid Borrelia burgdorferi 39kD IgM antibody detection by immunoblotOrdered By: Caryn Jarvis on 08-09-2022 B. burgdorferi 39kD IgM IB Ql (CSF) Absent . [facility] Cerebrospinal fluid Borrelia burgdorferi 41kD IgM antibody detection by immunoblotOrdered By: Caryn Jarvis on 08-09-2022 B. burgdorferi 41kD IgM IB Ql (CSF) Absent . [facility] Determination of erythrocyte mean corpuscular volume (MCV)Ordered By: Caryn Jarvis on 08-09-2022 MCV (RBC) [Entitic vol] 95.5 fL 81-99 [facility] Erythrocyte sedimentation ra teOrdered By: Caryn Jarvis on 08-09-2022 ESR (Bld) [Velocity] 8 mm/h 0-[address] [facility] [place] [facility] Hematocrit Auto (Bld) [Volum e fraction]Ordered By: Caryn Jarvis on 08-09-2022 Hematocrit (Bld) [Volume fraction] 42.0 % 37-47 [facility] Interpretation of serum or p lasma protein pattern by immunofixation (narrative resultOrdered By: Caryn Jarvis on 08-09-2022 Protein Fractions Immunofixation Dg [Interp] See comment [facility] Comment on above: NOT OBSERVED Ketones Test strip Ql (U)Ord ered By: Caryn Jarvis on 08-09-2022 Ketones Ql (U) 5 mg/dl Negative [facility] Laboratory - Chemistry and C hemistry - challengeOrdered By: Caryn Jarvis on 08-09-2022 ALP [Catalytic activity/Vol] 80 U/L 45-117 [facility] ALT [Catalytic activity/Vol] 23 U/L 13-56 [facility] CK [Catalytic activity/Vol] 62 U/L 26-192 [facility] CO2 [Moles/Vol] 26.0 mmol/L 21.0-32.0 [facility] Cobalamin (Vitamin B12) [Mass/Vol] 575 pg/mL 211-911 [facility] Globulin (S) [Mass/Vol] 3.1 g/dL 2.2-4.2 [facility] Magnesium [Mass/Vol] 2.4 mg/dL 1.6-2.[address] [facility] [place] [facility] Urea nitrogen/Creatinine [Mass ratio] 17.3 mg/mg 10-20 [facility] Laboratory - Hematology and Cell countsOrdered By: Caryn Jarvis on 08-09-2022 Erythrocyte distribution width (RBC) [Entitic vol] 43.7 fL 35.1-43.9 [facility] Erythrocyte distribution width (RBC) [Ratio] 12.4 % 11.6-14.6 [facility] Immature granulocytes/100 WBC (Bld) 0.000 % 0.0-0.9 [facility] Comment on above: IG% - Immature Granu locytes (promyelocytes, myelocytes and metamyelocytes) > 1% indicates that a LEFT SHIFT is Present. MCH (RBC) [Entitic mass] 31.1 pg 27.0-32.0 [facility] Nucleated RBC/100 WBC (Bld) [Ratio] 0 % [facility] [Mass/Vol]Or dered By: Caryn Jarvis on 08-09-2022 MCHC (RBC) [Mass/Vol] 32.6 g/dL 32-36 [facility] Mucus LM Ql (Urine sed)Order ed By: Caryn Jarvis on 08-09-2022 Mucus Ql (Urine sed) 0 SEEN /hpf [facility] Nitrite Test strip Ql (U)Ord ered By: Caryn Jarvis on 08-09-2022 Nitrite Ql (U) Negative Negative [facility] No Panel InformationOrdered By: Caryn Jarvis on 08-09-2022 Addendum Document Comment . [facility] Comment on above: Protein electrophore sis scan will follow via computer,mail, or food services director delivery. Anti-Nuclear Antibody Screen Positive Negative [facility] Centromere B Antibody <0.2 AI 0.0-0.9 [facility] Estimated GFR (MDRD) Amer 118 mL/min >60 [facility] Comment on above: GFR Calc Estimated GFR (MDRD) Non-Af Amer 97 mL/min >60 [facility] Comment on above: Non- GFR Calc Lyme Disease IgG Ab 30 kDa Band Absent . [facility] Lyme Disease IgG Ab 93 kDa Band Absent . [facility] Lyme Disease IgG West Blot Interp Negative . [facility] Comment on above: Positive: 5 of the f ollowing Borrelia-specific bands: 18,23,28,30,39,41,45,58, 66, and 93. Negative: No bands or banding patterns which do not meet positive criteria. Lyme Disease IgM Ab (Western Blot) Negative . [facility] Comment on above: Note: An equivocal o r positive EIA result followed by anegative Line Blot result is considered NEGATIVE. Anequivocal or positive EIA result followed by a positiveLine Blot is considered POSITIVE by the CDC.Positive: 2 of the following bands: 23,39 or 41Negative: No bands or banding patterns which do not meetpositive criteria.Criteria for positivity are those recommended byCDC/ASTPHLD. p23=Osp C, s05=yfftfhiwnYwoy:Sera from individuals with the following may cross reactin the Lyme Line Blot assays: other spirochetal diseases(periodontal disease, leptospirosis, relapsing fever, yaws,and pinta); connective autoimmune (Rheumatoid Arthritis andSystemic Lupus Erythematosus and also individuals withAntinuclear Antibody); other infections (Elvis MountainSpotted Fever; Maritza-Kraft Virus, and Cytomegalovirus).Please Note: Lyme immunoblot alone is not recommended forthe diagnosis of Lyme disease. Current guidelines recommendthe use of a two-tiered approach to Lyme serology testingto improve the sensitivity and specificity of testing.[facility] 985668 Lyme Disease Serology withReflex to aid in the diagnosis of Lyme Disease. RBC Folate Hemolysate 495.0 ng/mL Not Estab. [facility] Red Blood Cell Folate 1207 ng/mL >498 [facility] CORPORATE VP ADVERTISING & ONLINE Antibody <0.2 AI 0.0-0.9 [facility] Thyroid Stimulating Hormone (TSH) 0.82 uIU/mL 0.358-3.74 [facility] Vitamin B6 Level 3.9 ug/L 3.4-65.2 [facility] Comment on above: Deficiency: <3.4 Mar ginal: 3.4 - 5.1 Adequate: >5.1 Vitamin D 25-Hydroxy 61.9 ng/mL [facility] [place] Comment on above: Vitamin D 25(OH) Sta tus Range Deficiency <20 ng/mL (50nmol/L) Insufficiency 20 - 30 ng/mL (50 - 75 nmol/L) Sufficiency 30 - 100 ng/mL (75 - 250 nmol/L) Toxicity >100 ng/mL (>250 nmol/L) Whole Blood Vitamin B1 Level 129.0 nmol/L 66.5-200.0 [facility] Platelets bldOrdered By: Reinaldo Jarvis on 08-09-2022 Platelets (Bld) [#/Vol] 243 10*3/uL 150-450 [facility] Protein Test strip Ql (U)Ord ered By: Caryn Jarvis on 08-09-2022 Protein Ql (U) 30 mg/dl Negative [facility] Serum Borrelia burgdorferi 4 1kD IgG antibody detection by immunoblotOrdered By: Caryn Jarvis on 08-09-2022 B. burgdorferi 41kD IgG IB Ql (S) Absent . [facility] Serum Borrelia burgdorferi 6 6kD IgG antibody detection by immunoblotOrdered By: Caryn Jarvis on 08-09-2022 B. burgdorferi 66kD IgG IB Ql (S) Absent . [facility] Serum DNA double strand anti body assay (units/volume)Ordered By: Caryn Jarvis on 08-09-2022 DNA double strand Ab Qn (S) 23 [IU]/mL 0-9 [facility] Comment on above: Negative <5 Equivoca l 5 - 9 Positive >9 Serum Michelle-1 antibody assay (u nits/volume)Ordered By: Caryn Jarvis on 08-09-2022 Michelle-1 extractable nuclear Ab Qn (S) <0.2 AI 0.0-0.9 [facility] Serum Scl-70 extractable nuc lear antibody assay (units/volume)Ordered By: Caryn Jarvis on 08-09-2022 SCL-70 extractable nuclear Ab Qn (S) <0.2 AI 0.0-0.9 [facility] Serum Leal extractable nucl ear antibody detectionOrdered By: Caryn Jarvis on 08-09-2022 Leal extractable nuclear Ab Ql (S) <0.2 AI 0.0-0.9 [facility] Serum [id number] measu rement by electrophoresisOrdered By: Caryn Jarvis on 08-09-2022 Alpha 1 globulin Elph [Mass/Vol] 0.2 g/dL 0.0-0.4 [facility] Alpha 1 globulin Elph [Mass/Vol] 0.7 g/dL 0.4-1.0 [facility] Serum classic neutrophil cyt oplasmic antibody assay (units/volume)Ordered By: Caryn Jarvis on 08-09-2022 Neutrophil cytoplasmic Ab.classic Qn (S) <1:20 titer Neg:<1:20 [facility] Serum cyclic citrullinated p eptide IgG antibody assay (units/volume)Ordered By: Caryn Jarvis on 08-09-2022 Cyclic citrullinated peptide IgG Qn 0 units 0-19 [facility] Comment on above: Negative <20 Weak po sitive 20 - 39 Moderate positive 40 - 59 Strong positive >59Performed at: [facility] [address] [id number] Director: Samuel Wheeler MD, Phone: [phone] at: - [facility] HospitalFbhdfi[address] [place], [place] [id number] Director: Adam Regalado PhD, Phone: [phone] at: [facility] [id number] [place], [place] [id number] Director: Cinthia Kumar PhD, Phone: [phone] Serum globulin measurement ( mass/volume)Ordered By: Caryn Jarvis on 08-09-2022 Globulin (S) [Mass/Vol] 2.5 g/dL 2.2-3.9 [facility] Serum or plasma C reactive p rotein measurement (mass/volume)Ordered By: Caryn Jarvis on 08-09-2022 CRP [Mass/Vol] mg/L 0.0-3.0 [facility] Comment on above: C-Reactive Protein ( CRP) provides useful information for thediagnosis, therapy and monitoring of inflammatory processesand associated diseases. For the evaluation of Relative Riskfor Cardiovascular Disease, a High Sensitivity CRP (HSCRP)should be ordered. Serum or plasma IgA measurem ent (mass/volume)Ordered By: Caryn Jarvis on 08-09-2022 IgA [Mass/Vol] 86 mg/dL 64-422 [facility] Serum or plasma IgG measurem ent (mass/volume)Ordered By: Caryn Jarvis on 08-09-2022 IgG [Mass/Vol] 603 mg/dL 586-1602 [facility] Serum or plasma IgM measurem ent (mass/volume)Ordered By: Caryn Jarvis on 08-09-2022 IgM [Mass/Vol] 118 mg/dL 26-217 [facility] Serum or plasma albumin zaid urement (mass/volume)Ordered By: Caryn Jarvis on 08-09-2022 Albumin [Mass/Vol] 3.6 g/dL 3.2-5.0 [facility] Serum or plasma albumin/glob ulin mass ratioOrdered By: Caryn Jarvis on 08-09-2022 Albumin/Globulin [Mass ratio] 1.2 {ratio} 0.9-2.4 [facility] Serum or plasma angiotensin converting enzyme measurement (enzymatic activity/volume)Ordered By: Caryn Jarvis on 08-09-2022 Angiotensin converting enzyme [Catalytic activity/Vol] 87 U/L 14-82 [facility] Serum or plasma beta globuli n measurement by electrophoresis (mass/volume)Ordered By: Caryn Jarvis on 08-09-2022 Beta globulin Elph [Mass/Vol] 0.9 g/dL 0.7-1.3 [facility] Serum or plasma calcitriol m easurement (mass/volume)Ordered By: Caryn Jarvis on 08-09-2022 1,25-dihydroxyvitamin D3 [Mass/Vol] 71.5 pg/mL 24.8-81.5 [facility] Serum or plasma calcium zaid urement (mass/volume)Ordered By: Caryn Jarvis on 08-09-2022 Calcium [Mass/Vol] 8.1 mg/dL 8.5-10.1 [facility] Serum or plasma complement C 3 measurement (mass/volume)Ordered By: Caryn Jarvis on 08-09-2022 Complement C3 [Mass/Vol] 135 mg/dL 82-167 [facility] Serum or plasma complement C 4 measurement (mass/volume)Ordered By: Caryn Jarvis on 08-09-2022 Complement C4 [Mass/Vol] 28 mg/dL 12-38 [facility] Serum or plasma creatinine m easurement (mass/volume)Ordered By: Caryn Jarvis on 08-09-2022 Creatinine [Mass/Vol] 0.64 mg/dL 0.55-1.02 [facility] Comment on above: The validity of the calculated GFR & GFRAA in patients over 70 years has not been determined. Clinical correlation is essential. Serum or plasma gamma globul in measurement by electrophoresis (mass/volume)Ordered By: Caryn Jarvis on 08-09-2022 Gamma globulin Elph [Mass/Vol] 0.6 g/dL 0.4-1.8 [facility] Serum or plasma immunoelectr ophoresis interpretation (nominal result)Ordered By: Caryn Jarvis on 08-09-2022 Interpretation IEP [Interp] Comment . [facility] Comment on above: No monoclonality det ected. Serum or plasma urea nitroge n measurement (mass/volume)Ordered By: Caryn Jarvis on 08-09-2022 Urea nitrogen [Mass/Vol] 11 mg/dL 7-18 [facility] Serum or plasma uric acid me asurement (mass/volume)Ordered By: Caryn Jarvis on 08-09-2022 Urate [Mass/Vol] 3.1 mg/dL 2.6-6.0 [facility] Comment on above: The drugs N-Acetylcy steine and Metamizole may falsely depress this assay. Serum perinuclear neutrophil cytoplasmic antibody titer by immunofluorescenceOrdered By: Caryn Jarvis on 08-09-2022 Neutrophil cytoplasmic Ab.perinuclear IF (S) [Titer] <1:20 titer Neg:<1:20 [facility] Comment on above: The presence of posi tive fluorescence exhibiting P-ANCA orC-ANCA patterns alone is not specific for the diagnosis ofWegener's Granulomatosis (WG) or microscopic polyangiitis.Decisions about treatment should not be based solely onANCA IFA results. The [employer] ANCA Group Consensusrecommends follow up testing of positive sera with both IL-3 and MPO-ANCA enzyme immunoassays. As many as 5% serumsamples are positive only by EIA. Ref. AM J Clin [id number];111:507-513. Serum tissue transglutaminas e IgA antibody assay (units/volume)Ordered By: Caryn Jarvis on 08-09-2022 tTG IgA Qn (S) <2 U/mL 0-3 [facility] Comment on above: Negative 0 - 3 Weak Positive 4 - 10 Positive >10 Tissue Transglutaminase (tTG) has been identified as the endomysial antigen. Studies have demonstr- ated that endomysial IgA antibodies have over 99% specificity for gluten sensitive enteropathy. Squamous epithelial cells de tection in urine sediment by light microscopyOrdered By: Caryn Jarvis on 08-09-2022 Epithelial cells.squamous LM Ql (Urine sed) 0-5 SEEN /hpf 5-10 [facility] Synovial fluid Borrelia sundar dorferi 45kD IgG antibody detection by immunoblotOrdered By: Caryn Jarvis on 08-09-2022 B. burgdorferi 45kD IgG IB Ql (Syn fld) Absent . [facility] Synovial fluid Borrelia sundar dorferi 58kD IgG antibody detection by immunoblotOrdered By: Caryn Jarvis on 08-09-2022 B. burgdorferi 58kD IgG IB Ql (Syn fld) Absent . [facility] Thin prep Papanicolaou smear with manual screeningOrdered By: Caryn Jarvis on 08-09-2022 Thin prep Papanicolaou smear with manual screening 27 U/L 15-37 [facility] Thin prep Papanicolaou smear with manual screening 7 5-15 [facility] Thin prep Papanicolaou smear with manual screening 41.0 % 34.0-46.6 [facility] Thin prep Papanicolaou smear with manual screening 1.5 0.7-1.7 [facility] Thin prep Papanicolaou smear with manual screening Negative . [facility] Comment on above: HLA-B*27 MgaznitfU27 allele interpretation for all loci based on IMGT/HLAdatabase version 3.44This test was developed and its performance characteristicsdetermined by [employer]. It has not been cleared or approvedby the Food and Drug Administration.[facility] CLIA ID Number [id number] test was performed using PCR (Polymerase ChainReaction)/SSOP (Sequence Specific Oligonucleotide Probes)technique. SBT (Sequence Based Typing) and/or SSP(Sequence Specific Primers) may be used as supplementalmethods when necessary. Please contact [facility]Service at if you have any questions. Director of [facility] Dr Sree John, PhD Total protein bloodOrdered B y: Caryn Jarvis on 08-09-2022 Protein [Mass/Vol] 6.0 g/dL 6.0-8.5 [facility] Urine blood detectionOrdered By: Caryn Jarvis on 08-09-2022 RBC Ql (U) 10 /ul Negative [facility] RBC Ql (U) 0-5 SEEN /hpf 0-5 [facility] Urine clarityOrdered By: Reinaldo Jarvis on 08-09-2022 Clarity (U) Sl. Cloudy Clear [facility] Urine color determinationOrd ered By: Caryn Jarvis on 08-09-2022 Color (U) Yellow Yellow [facility] Urine glucose detectionOrder ed By: Caryn Jarvis on 08-09-2022 Glucose Ql (U) Normal mg/dl Normal [facility] Urine leukocyte esterase det ection by dipstickOrdered By: Caryn Jarvis on 08-09-2022 Leukocyte esterase Test strip Ql (U) 25 /ul Negative [facility] Urine pHOrdered By: Caryn Pete on 08-09-2022 pH (U) 7.0 [pH] 5.0 - 8.0 [facility] Urine sediment bacteria coun t by microscopy (number/high power field)Ordered By: Caryn Jarvis on 08-09-2022 Bacteria LM.HPF (Urine sed) [#/Area] 1 /[HPF] None Seen [facility] Urine specific gravity measu rementOrdered By: Caryn Jarvis on 08-09-2022 Specific gravity (U) [Rel density] 1.010 1.002-1.03 0 [facility] Urobilinogen Auto test strip Ql (U)Ordered By: Caryn Jarvis on 08-09-2022 Urobilinogen Ql (U) Normal mg/dl Normal [facility] Basophil percentageOrdered B y: Dr. Zaldivar on 07-18-2022 Bilirubin [Mass/Vol] 0.50 mg/dL 0.20-1.[address] [facility] [place] [facility] Comment on above: For patients on eltr ombopag therapy, use of Dimension Arrey TBIL is not recommended. Chloride [Moles/Vol] 106 mmol/L 98-[address] [facility] [place] [facility] Glucose [Mass/Vol] 83 mg/dL 74-106 [facility] Potassium [Moles/Vol] 4.0 mmol/L 3.5-5.1 [facility] Comment on above: Slight Hemolysis, Re sult may be falsely increased. Protein [Mass/Vol] 7.0 g/dL 6.4-8.2 [facility] Sodium [Moles/Vol] 139 mmol/L 136-145 [facility] Laboratory - Chemistry and C hemistry - challengeOrdered By: Dr. Zaldivar on 07-18-2022 ALP [Catalytic activity/Vol] 108 U/L 45-117 [facility] ALT [Catalytic activity/Vol] 30 U/L 13-56 [facility] CO2 [Moles/Vol] 27.0 mmol/L 21.0-32.0 [facility] Globulin (S) [Mass/Vol] 3.4 g/dL 2.2-4.2 [facility] Urea nitrogen/Creatinine [Mass ratio] 31.9 mg/mg 10-20 [facility] No Panel InformationOrdered By: Dr. Zaldivar on 07-18-2022 Estimated GFR (MDRD) Amer 120 mL/min >60 [facility] Comment on above: GFR Calc Estimated GFR (MDRD) Non-Af Amer 99 mL/min >60 [facility] Comment on above: Non- GFR Calc Serum or plasma albumin zaid urement (mass/volume)Ordered By: Dr. Zaldivar on 07-18-2022 Albumin [Mass/Vol] 3.6 g/dL 3.2-5.0 [facility] Serum or plasma albumin/glob ulin mass ratioOrdered By: Dr. Zaldivar on 07-18-2022 Albumin/Globulin [Mass ratio] 1.1 {ratio} 0.9-2.4 [facility] Serum or plasma calcium zaid urement (mass/volume)Ordered By: Dr. Zaldivar on 07-18-2022 Calcium [Mass/Vol] 8.5 mg/dL 8.5-10.1 [facility] Serum or plasma creatinine m easurement (mass/volume)Ordered By: Dr. Zaldivar on 07-18-2022 Creatinine [Mass/Vol] 0.63 mg/dL 0.55-1.02 [facility] Comment on above: The validity of the calculated GFR & GFRAA in patients over 70 years has not been determined. Clinical correlation is essential. Serum or plasma urea nitroge n measurement (mass/volume)Ordered By: Dr. Zaldivar on 07-18-2022 Urea nitrogen [Mass/Vol] 20 mg/dL 7-18 [facility] Thin prep Papanicolaou smear with manual screeningOrdered By: Dr. Zaldivar on 07-18-2022 Thin prep Papanicolaou smear with manual screening 30 U/L 15-37 [facility] Comment on above: Slight Hemolysis, Re sult may be falsely increased. Thin prep Papanicolaou smear with manual screening 6 5-15 [facility] Laboratory - Miscellaneous t estsOrdered By: Dr. Peterson on 05-08-2022 Service comment (Unsp spec) [Interp] Comment . [facility] Comment on above: Levels of Specific I gE Class Description of Class ----- < 0.10 0 Negative 0.10 - 0.31 0/I Equivocal/Low 0.32 - 0.55 I Low 0.56 - 1.40 II Moderate 1.41 - 3.90 III High 3.91 - 19.00 IV Very High 19.01 - 100.00 V Very High >100.00 [facility] No Panel InformationOrdered By: Dr. Peterson on 05-08-2022 Scallop Allergen <0.10 kU/L Class 0 [facility] Sesame Seed Allergen IgE Antibody <0.10 kU/L Class 0 [facility] Comment on above: Performed at: [address] [id number] Director: Samuel Wheeler MD, Phone: [phone] Shrimp Allergen <0.10 kU/L Class 0 [facility] Serum black walnut IgE antib carlos assay (units/volume)Ordered By: Dr. Peterson on 05-08-2022 Black [place] IgE Qn (S) <0.10 kU/L Class 0 [facility] Serum clam IgE antibody assa y (units/volume)Ordered By: Dr. Peterson on 05-08-2022 Clam IgE Qn (S) <0.10 kU/L Class 0 [facility] Serum codfish IgE antibody a ssay (units/volume)Ordered By: Dr. Peterson on 05-08-2022 Codfish IgE Qn (S) <0.10 kU/L Class 0 [facility] Serum corn IgE antibody assa y (units/volume)Ordered By: Dr. Peterson on 05-08-2022 [place] IgE Qn (S) <0.10 kU/L Class 0 [facility] Serum cow milk IgE antibody assay (units/volume)Ordered By: Dr. Peterson on 05-08-2022 Cow milk IgE Qn (S) <0.10 kU/L Class 0 [facility] Serum egg white IgE antibody assay (units/volume)Ordered By: Dr. Peterson on 05-08-2022 Egg white IgE Qn (S) <0.10 kU/L Class [address] [facility] [place] [facility] Serum peanut IgE antibody as say (units/volume)Ordered By: Dr. Peterson on 05-08-2022 Peanut IgE Qn (S) <0.10 kU/L Class 0 [facility] Serum soybean IgE antibody a ssay (units/volume)Ordered By: Dr. Peterson on 05-08-2022 Soybean IgE Qn (S) <0.10 kU/L Class 0 [facility] Serum wheat IgE antibody ass ay (units/volume)Ordered By: Dr. Peterson on 05-08-2022 Wheat IgE Qn (S) <0.10 kU/L Class 0 [facility] No Panel InformationOrdered By: Dr. Peterson on 04-03-2022 Whole Blood Vitamin B1 Level 122.7 nmol/L 66.5-200.0 [facility] Comment on above: Performed at: [address] [id number] Director: Samuel Wheeler MD, Phone: [phone] Serum or plasma folate measu rement (mass/volume)Ordered By: Dr. Peterson on 04-03-2022 Folate [Mass/Vol] 13.00 ng/mL 3.1-55.4 [facility] Comment on above: Slight Hemolysis, Re sult may be falsely increased. Absolute lymphocyte countOrd ered By: Dr. Douglas on 01-15-2022 Lymphocytes Auto (Unsp spec) [#/Vol] 1.35 10*3/uL 0.83-4.51 [facility] Basophil percentageOrdered B y: Dr. Douglas on 01-15-2022 Basophil percentage < 0.2 AI 0.0-0.9 [facility] Basophils/100 WBC (Bld) 0.7 % 0-1 [facility] Bilirubin [Mass/Vol] 0.50 mg/dL 0.20-1.[address] [facility] [place] [facility] Comment on above: For patients on eltr ombopag therapy, use of Dimension Arrey TBIL is not recommended. Chloride [Moles/Vol] 106 mmol/L 98-[address] [facility] [place] [facility] Cholesterol [Mass/Vol] 284 mg/dL <200 [facility] Comment on above: <200 mg/dL Desirable 200-240 mg/dL Borderline >240 mg/dL High Risk Eosinophils/100 WBC (Bld) 2.2 % 0-5 [facility] Glucose [Mass/Vol] 90 mg/dL 74-106 [facility] Neutrophils (Bld) [#/Vol] 2.4 10*3/uL 2.0-7.7 [facility] Neutrophils/100 WBC (Bld) 57.1 % 47-70 [facility] Potassium [Moles/Vol] 4.1 mmol/L 3.5-5.1 [facility] Protein [Mass/Vol] 6.3 g/dL 6.4-8.2 [facility] Sodium [Moles/Vol] 141 mmol/L 136-145 [facility] Triglyceride [Mass/Vol] 77 mg/dL <199 [facility] Comment on above: The drugs N-Acetylcy steine and Metamizole may falsely depress this assay.Serum Triglycerides Reference Interval Normal <150 mg/dL Borderline high 150 - 199 mg/dL High 200 - 499 mg/dL Very High > or = 500 mg/dL WBC (Bld) [#/Vol] 4.1 10*3/uL 4.4-11.0 [facility] Blood erythrocytes count (nu mber/volume)Ordered By: Dr. Douglas on 01-15-2022 RBC (Bld) [#/Vol] 4.28 10*6/uL 4.2-5.4 [facility] Blood hemoglobin measurement (mass/volume)Ordered By: Dr. Douglas on 01-15-2022 Hemoglobin (Bld) [Mass/Vol] 13.9 g/dL 12.0-15.0 [facility] Blood lymphocytes/100 leukoc ytesOrdered By: Dr. Douglas on 01-15-2022 Lymphocytes/100 WBC (Bld) 32.6 % 19-41 [facility] Blood monocytes/100 leukocyt esOrdered By: Dr. Douglas on 01-15-2022 Monocytes/100 WBC (Bld) 7.2 % 0-10 [facility] Blood platelet mean volumeOr dered By: Dr. Douglas on 01-15-2022 Platelet mean volume (Bld) [Entitic vol] 9.0 fL 6.2-12.0 [facility] Determination of erythrocyte mean corpuscular volume (MCV)Ordered By: Dr. Douglas on 01-15-2022 MCV (RBC) [Entitic vol] 97.7 fL 81-99 [facility] Erythrocyte sedimentation ra teOrdered By: Dr. Douglas on 01-15-2022 ESR (Bld) [Velocity] 14 mm/h 0-[address] [facility] [place] [facility] Hematocrit Auto (Bld) [Volum e fraction]Ordered By: Dr. Douglas on 01-15-2022 Hematocrit (Bld) [Volume fraction] 41.8 % 37-47 [facility] Iron measurement (mass/mass) Ordered By: Dr. Douglas on 01-15-2022 Iron (Unsp spec) [Mass/Mass] 116 ug/dL 50-170 [facility] Laboratory - Chemistry and C hemistry - challengeOrdered By: Dr. Douglas on 01-15-2022 Albumin [Mass/Vol] 3.3 g/dL 2.9-4.4 [facility] ALP [Catalytic activity/Vol] 94 U/L 45-117 [facility] ALT [Catalytic activity/Vol] 22 U/L 13-56 [facility] CO2 [Moles/Vol] 29.0 mmol/L 21.0-32.0 [facility] Cobalamin (Vitamin B12) [Mass/Vol] 744 pg/mL 211-911 [facility] Globulin (S) [Mass/Vol] 2.9 g/dL 2.2-4.2 [facility] Magnesium [Mass/Vol] 2.3 mg/dL 1.6-2.[address] [facility] Urea nitrogen/Creatinine [Mass ratio] 19.3 mg/mg 10-20 [facility] Laboratory - Hematology and Cell countsOrdered By: Dr. Douglas on 01-15-2022 Erythrocyte distribution width (RBC) [Entitic vol] 44.1 fL 35.1-43.9 [facility] Erythrocyte distribution width (RBC) [Ratio] 12.4 % 11.6-14.6 [facility] Immature granulocytes/100 WBC (Bld) 0.200 % 0.0-0.9 [facility] Comment on above: IG% - Immature Granu locytes (promyelocytes, myelocytes and metamyelocytes) > 1% indicates that a LEFT SHIFT is Present. MCH (RBC) [Entitic mass] 32.5 pg 27.0-32.0 [facility] Nucleated RBC/100 WBC (Bld) [Ratio] 0 % 0-5 [facility] MCHC Auto (RBC) [Mass/Vol]Or dered By: Dr. Douglas on 01-15-2022 MCHC (RBC) [Mass/Vol] 33.3 g/dL 32-36 [facility] No Panel InformationOrdered By: Dr. Douglas on 01-15-2022 Addendum Document Comment: . [facility] Comment on above: SPE shows decreased total protein.Performed at: [employer] [address] [id number] Director: Adam Regalado PhD, Phone: [phone] Ujpif-4-Opqpexzca 0.3 g/dL 0.0-0.4 [facility] Prmei-1-Snfticfnl 0.8 g/dL 0.4-1.0 [facility] Anti-Nuclear Antibody Screen Positive Negative [facility] Comment on above: Performed at: [employer] [address] [id number] Director: Adam Regalado PhD, Phone: [phone] reported result: Positive Edited by: BAYRON on 01/23/22:1101 AMENDED REPORT 01/23/22 1101 SCOTT-DIRECT previously reported as: Positive H Performed at: [employer] [address] [id number] Director: Adam Regalado PhD, Phone: [phone] [facility] B Antibody <0.2 AI 0.0-0.9 [facility] Estimated GFR (MDRD) Amer 121 mL/min >60 [facility] Comment on above: GFR Calc Estimated GFR (MDRD) Non-Af Amer 100 mL/min >60 [facility] Comment on above: Non- GFR Calc Gamma Globulins 0.5 g/dL 0.4-1.8 [facility] [employer] ADVERTISING & ONLINE Antibody <0.2 AI 0.0-0.9 [facility] Vitamin D 25-Hydroxy 65.6 ng/mL [facility] Comment on above: Vitamin D 25(OH) Sta tus Range Deficiency <20 ng/mL (50nmol/L) Insufficiency 20 - 30 ng/mL (50 - 75 nmol/L) Sufficiency 30 - 100 ng/mL (75 - 250 nmol/L) Toxicity >100 ng/mL (>250 nmol/L) Platelets bldOrdered By: Dr. Douglas on 01-15-2022 Platelets (Bld) [#/Vol] 395 10*3/uL 150-450 [facility] Protein Fractions Elph [Inte rp]Ordered By: Dr. Douglas on 01-15-2022 Protein Fractions [Interp] Comment . [facility] Comment on above: Protein electrophore sis scan will follow via computer,mail, or food services director delivery. Serum DNA double strand anti body assay (units/volume)Ordered By: Dr. Douglas on 01-15-2022 DNA double strand Ab Qn (S) 12 [IU]/mL 0-9 [facility] Comment on above: Negative <5 Equivoca l 5 - 9 Positive >9 Serum Michelle-1 antibody assay (u nits/volume)Ordered By: Dr. Douglas on 01-15-2022 Michelle-1 extractable nuclear Ab Qn (S) <0.2 AI 0.0-0.9 [facility] Serum Scl-70 extractable nuc lear antibody assay (units/volume)Ordered By: Dr. Douglas on 01-15-2022 SCL-70 extractable nuclear Ab Qn (S) <0.2 AI 0.0-0.9 [facility] Serum Leal extractable nucl ear antibody detectionOrdered By: Dr. Douglas on 01-15-2022 Leal extractable nuclear Ab Ql (S) <0.2 AI 0.0-0.9 [facility] Serum albumin to globulin ra taylor by protein electrophoresisOrdered By: Dr. Douglas on 01-15-2022 Albumin/Globulin Elph [Mass ratio] 1.4 0.7-1.7 [facility] Serum globulin measurement ( mass/volume)Ordered By: Dr. Douglas on 01-15-2022 Globulin (S) [Mass/Vol] 2.4 g/dL 2.2-3.9 [facility] Serum or plasma C reactive p rotein measurement (mass/volume)Ordered By: Dr. Douglas on 01-15-2022 CRP [Mass/Vol] mg/L 0.0-3.0 [facility] Comment on above: C-Reactive Protein ( CRP) provides useful information for thediagnosis, therapy and monitoring of inflammatory processesand associated diseases. For the evaluation of Relative Riskfor Cardiovascular Disease, a High Sensitivity CRP (HSCRP)should be ordered. Serum or plasma albumin zaid urement (mass/volume)Ordered By: Dr. Douglas on 01-15-2022 Albumin [Mass/Vol] 3.4 g/dL 3.2-5.0 [facility] Serum or plasma albumin/glob ulin mass ratioOrdered By: Dr. Douglas on 01-15-2022 Albumin/Globulin [Mass ratio] 1.2 {ratio} 0.9-2.4 [facility] Serum or plasma beta globuli n measurement by electrophoresis (mass/volume)Ordered By: Dr. Douglas on 01-15-2022 Beta globulin Elph [Mass/Vol] 0.9 g/dL 0.7-1.3 [facility] Serum or plasma calcium zaid urement (mass/volume)Ordered By: Dr. Douglas on 01-15-2022 Calcium [Mass/Vol] 8.9 mg/dL 8.5-10.1 [facility] Serum or plasma cholesterol in HDL measurement (mass/volume)Ordered By: Dr. Douglas on 01-15-2022 Cholesterol in HDL [Mass/Vol] 103 mg/dL >40 [facility] Comment on above: The drugs N-Acetylcy steine and Metamizole may falsely depress this assay. Reference Range HDL <40 mg/dL Low HDL Cholesterol HDL >or= 60 mg/dL High HDL Cholesterol Serum or plasma cholesterol in VLDL measurement (mass/volume)Ordered By: Dr. Douglas on 01-15-2022 Cholesterol in VLDL [Mass/Vol] 15 mg/dL 5-40 [facility] Serum or plasma creatinine m easurement (mass/volume)Ordered By: Dr. Douglas on 01-15-2022 Creatinine [Mass/Vol] 0.62 mg/dL 0.55-1.02 [facility] Comment on above: The validity of the calculated GFR & GFRAA in patients over 70 years has not been determined. Clinical correlation is essential. Serum or plasma ferritin prashant surement (mass/volume)Ordered By: Dr. Douglas on 01-15-2022 Ferritin [Mass/Vol] 124 ng/mL 8-252 [facility] Serum or plasma low density lipoprotein (LDL) cholesterol measurement (mass/volume)Ordered By: Dr. Douglas on 01-15-2022 Cholesterol in LDL [Mass/Vol] 166 mg/dL 0-130 [facility] Serum or plasma urea nitroge n measurement (mass/volume)Ordered By: Dr. Douglas on 01-15-2022 Urea nitrogen [Mass/Vol] 12 mg/dL 7-18 [facility] Serum or plasma uric acid me asurement (mass/volume)Ordered By: Dr. Douglas on 01-15-2022 Urate [Mass/Vol] 3.0 mg/dL 2.6-6.0 [facility] Comment on above: The drugs N-Acetylcy steine and Metamizole may falsely depress this assay. Serum rheumatoid factor dete ctionOrdered By: Dr. Douglas on 01-15-2022 Rheumatoid factor Ql (S) < 10.0 IU/mL <15 [facility] Thin prep Papanicolaou smear with manual screeningOrdered By: Dr. Douglas on 01-15-2022 Thin prep Papanicolaou smear with manual screening 15 U/L 15-37 [facility] Thin prep Papanicolaou smear with manual screening 6 5-15 [facility] Thin prep Papanicolaou smear with manual screening See comment [facility] Comment on above: Result: Not Observed Total protein bloodOrdered B y: Dr. Douglas on 01-15-2022 Protein [Mass/Vol] 5.7 g/dL 6.0-8.5 [facility] Laboratory - Microbiology an d Antimicrobial susceptibilityOrdered By: Dr. Douglas on 01-03-2022 SARS-CoV-2 (COVID-19) RNA EZE+probe Ql (Unsp spec) Not detected Not Detect [facility] Comment on above: Normal Reference Ran ge: Not DetectedMethod:(RT-PCR) real-time reverse transcriptase PCRLuLiquid Light Instrument*The Food and Drug Administration (FDA) has issued an Emergency Use Authorization (EAU) for the ANJEL SARS-CoV-2 Assay for the rapid detection of the virus that causes COVID-19. This test has been validated, but the FDAs independent review of this validation is pending.*Negative results do not preclude infection and should not be used as the sole basis for treatment or patient management. Optimum specimen types and timing for peak viral levels during infections caused by SARS-CoV-2 have not been determined. Collection of multiple specimens from the same patient may be necessary to detect the virus. The possibility of a false negative result should be considered if the patient has clinical presentation or has had recent exposure. COLONOSCOPY SCREENINGon 11-17 [facility] Laboratory - Chemistry and C hemistry - challengeon 11-09-2021 Free T4 [Mass/Vol] 1.24 ng/dL 0.76-1.46 [facility] Work Phone: [phone] No Panel Informationon 11-09 Thyroid Stimulating Hormone (TSH) 1.94 uIU/mL 0.358-3.74 [facility] Work Phone: [phone] Absolute lymphocyte counton 05-24-2021 Lymphocytes Auto (Unsp spec) [#/Vol] 1.52 10*3/uL 0.83-4.51 [facility] Work Phone: Basophil percentageon 2021 Basophils/100 WBC (Bld) 0.6 % 0-1 [facility] Work Phone: Eosinophils/100 WBC (Bld) 3.1 % 0-5 [facility] Work Phone: Neutrophils (Bld) [#/Vol] 2.9 10*3/uL 2.0-7.7 [facility] Work Phone: Neutrophils/100 WBC (Bld) 57.1 % 47-70 [facility] Work Phone: WBC (Bld) [#/Vol] 5.2 10*3/uL 4.4-11.0 [facility] Work Phone: Blood erythrocytes count (nu mber/volume)on 05-24-2021 RBC (Bld) [#/Vol] 3.95 10*6/uL 4.2-5.4 [facility] Work Phone: [phone] Blood hemoglobin measurement (mass/volume)on 05-24-2021 Hemoglobin (Bld) [Mass/Vol] 12.1 g/dL 12.0-15.0 [facility] Work Phone: Blood lymphocytes/100 leukoc yteson 05-24-2021 Lymphocytes/100 WBC (Bld) 29.5 % 19-41 [facility] Work Phone: Blood monocytes/100 leukocyt eson 05-24-2021 Monocytes/100 WBC (Bld) 9.5 % 0-10 [facility] Work Phone: [phone] Blood platelet mean volumeon 05-24-2021 Platelet mean volume (Bld) [Entitic vol] 9.5 fL 6.2-12.0 [facility] Work Phone: [phone] Determination of erythrocyte mean corpuscular volume (MCV)on 05-24-2021 MCV (RBC) [Entitic vol] 93.9 fL 81-99 [facility] Work Phone: [phone] Erythrocyte sedimentation ra tony 05-24-2021 ESR (Bld) [Velocity] 9 mm/h 0-[address] [facility] Work Phone: [phone] Hematocrit Auto (Bld) [Volum e fraction]on 05-24-2021 Hematocrit (Bld) [Volume fraction] 37.1 % 37-47 [facility] Work Phone: [phone] Laboratory - Hematology and Cell countson 05-24-2021 Erythrocyte distribution width (RBC) [Entitic vol] 42.8 fL 35.1-43.9 [facility] Work Phone: [phone] Erythrocyte distribution width (RBC) [Ratio] 12.4 % 11.6-14.6 [facility] Work Phone: [phone] Immature granulocytes/100 WBC (Bld) 0.200 % 0.0-0.9 [facility] Work Phone: [phone] Comment on above: IG% - Immature Granu locytes (promyelocytes, myelocytes and metamyelocytes) > 1% indicates that a LEFT SHIFT is Present. MCH (RBC) [Entitic mass] 30.6 pg 27.0-32.0 [facility] Work Phone: [phone] Nucleated RBC/100 WBC (Bld) [Ratio] 0 % 0-5 [facility] Work Phone: [phone] MCHC Auto (RBC) [Mass/Vol]on 05-24-2021 MCHC (RBC) [Mass/Vol] 32.6 g/dL 32-36 [facility] Work Phone: [phone] Platelets bldon 05-24-2021 Platelets (Bld) [#/Vol] 254 10*3/uL 150-450 [facility] Work Phone: Post Operative Note - ORon 0 05-16-2017 Post Operative Note - OR Post Operative Note:PreOp Diagnosis: chronic painPost-Procedure Diagnosis: chronic painProcedure: BAHA attract removalSurgeon: mowryResident/Fellow/Othe r Colorist: mastersAnesthesia: macEstimated Blood Loss (mL): noneSpecimen: yesFindings: baha attract magnet removedOperative Report Dictated:Dictation: yesDictated by: Sandoval of Dictation: [id number] job number: [id number]/Cosignatu re/Attestation:Attending Attestation I was present for the entire procedureElectronic Signatures:Ashley Scott) (Signed 16-May-2017 16:47) Authored: Post Operative Note, Signature/Cosignature/Att estationLast Updated: 16-May-2017 16:47 by Ashley Scott) Normal [facility] Preop Checkliston 05-16-2017 Preop Checklist [...] 14:10 by Nayana Farrar (STAFF N) Normal [facility] Surgical Pathology Depar tmenton 05-16-[address] 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 Clinical History:Chronic pain right eargross only: attention Dr. Grey, re? to cochlearSpecimens Submitted As:A: BAHA RIGHT EAR MAGNET Gross Description:Received fresh labeled with the patient's name and hospital number, is a magnetwith the inscription Cochlear lot [id number]. The metallic surfaces are smooth andshiny. Soft tissue is not present. A photograph has been taken. The specimen isfor gross only.ALTalt/05/20/2017 Normal [facility] Comment on above: Performed By: #### [facility] ####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 Left ventricular Ejection fraction 55 % Invalid Interpretation Code [employer] Work Phone: [phone] Office Visiton 09-11-2015 Documentation of current medications (procedure) Done Invalid Interpretation Code [employer] Work Phone: [phone] Protein mass conc Done [employer] Work Phone: [phone] Clinical Lists Updateon 05-18 Cholesterol 242 mg/dL Invalid Interpretation Code [employer] Work Phone: [phone] HDL Cholesterol 101 mg/dL Invalid Interpretation Code [employer] Work Phone: [phone] LDL Cholesterol 127 mg/dL Invalid Interpretation Code [employer] Work Phone: [phone] Thyroid stimulating hormone (TSH) 4.31 u[iU]/mL High [employer] Work Phone: [phone] Triglyceride 70 mg/dL Invalid Interpretation Code [employer] Work Phone: [phone] very low density lipoproteins 14 mg/dL Invalid Interpretation Code [employer] Work Phone: [phone] Office Visiton 08-24-2014 cardiac risk group B Invalid Interpretation Code [employer] Work Phone: [phone] General cardiovascular disease 10Y risk [#] [place] 2 % Invalid Interpretation Code [employer] Work Phone: [phone] Tobacco smoking status NHIS Former smoker [employer] Work Phone: [phone] Tobacco use CPHS Former smoker Invalid Interpretation Code [employer] Work Phone: [phone] Clinical Lists Update: 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 04-28-2014 Anion gap 5 mmol/L Invalid Interpretation Code [facility] [employer] Work Phone: [phone] Anion gap molar conc 5 mmol/L [employer] [facility] [employer] Work Phone: [phone] BUN/Creatinine Ratio 37.1 mg/mg High [facility] [employer] Work Phone: [phone] Calcium 8.6 mg/dL Invalid Interpretation Code [facility] [employer] Work Phone: [phone] Chloride 107 mmol/L Invalid Interpretation Code [employer] Work Phone: [phone] CO2 30.0 mmol/L Invalid Interpretation Code [facility] Work Phone: [phone] CO2 ppres (BldV) 30.0 mmol/L [facility] Work Phone: [phone] Creatinine 0.7 mg/dL Invalid Interpretation Code [facility] Work Phone: [phone] Erythrocytes (RBC) 4.0 10*6/uL [facility] Work Phone: [phone] Glucose 83 mg/dL Invalid Interpretation Code [facility] Work Phone: [phone] Glucose mass conc 83 mg/dL [facility] Work Phone: [phone] Hematocrit (HCT) 38.0 % Invalid Interpretation Code [facility] Work Phone: [phone] Hematocrit Volume Fraction (Bld) 38.0 % [facility] Work Phone: [phone] Hemoglobin (HGB) 12.3 g/dL Invalid Interpretation Code [facility] Work Phone: [phone] MCH 30.8 pg Invalid Interpretation Code [facility] Work Phone: [phone] MCH Entitic mass (RBC) 30.8 pg [facility] Work Phone: [phone] MCHC 32.4 g/dL Invalid Interpretation Code [facility] Work Phone: [phone] MCHC mass conc (RBC) 32.4 g/dL [facility] Work Phone: [phone] MCV 95.0 fL Invalid Interpretation Code [facility] Work Phone: [phone] MCV Entitic volume (RBC) 95.0 fL [facility] Work Phone: [phone] Platelets 225 10*3/mm3 Invalid Interpretation Code [facility] Work Phone: [phone] Platelets #/vol (Bld) 225 10*3/mm3 [facility] Work Phone: [phone] Potassium 3.7 mmol/L Invalid Interpretation Code [facility] Work Phone: [phone] RBC #/vol (Bld) 4.0 10*6/uL Low [facility] Work Phone: [phone] Sodium 142 mmol/L Invalid Interpretation Code [facility] Work Phone: [phone] Urea nitrogen 26 mg/dL High [facility] Work Phone: [phone] WBC #/vol (Bld) 3.3 10*3/uL Low [facility] Work Phone: [phone] WBC (Leukocytes) 3.3 10*3/uL Low [facility] Work Phone: [phone] Office Visiton 08-18-2013 Alcoholism counseling (procedure) no Invalid Interpretation Code [facility] Work Phone: [phone] Protein mass conc no [facility] Work Phone: [phone] Clinical Lists Update: 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 03-30-2013 Thyroxine (T4) 11.5 ug/dL Invalid Interpretation Code [facility] Work Phone: [phone] EKG Report: [place] ECG Obse rvationson 08-12-2012 GE use only - for [employer] import when terms are not otherwise specified 399 ms Invalid Interpretation Code [facility] Work Phone: [phone] QTc [place] 399 ms [facility] Work Phone: [phone] Replaced Document: Ric E CG Observationson 08-12-2012 EKG QRS axis 36 deg [facility] Work Phone: [phone] electrocardiogram interpretation Sinus Rhythm - frequent ectopic ventricular beat s # VECs = 2BORDERLINE RHYTHM Invalid Interpretation Code [facility] Work Phone: [phone] Interpretation Sinus Rhythm - frequ ent ectopic ventricular beat s # VECs = 2BORDERLINE RHYTHM [facility] Work Phone: [phone] P [place] 48 deg [facility] Work Phone: [phone] P wave axis, electrocardiogram 48 deg Invalid Interpretation Code [facility] Work Phone: [phone] [place] Interval 174 ms [facility] Work Phone: [phone] IL interval, electrocardiogram 174 ms Invalid Interpretation Code [facility] Work Phone: [phone] Pulse (Heart Rate) 70 /min Invalid Interpretation Code [facility] Work Phone: [phone] Pulse (Heart Rate) 401 ms Invalid Interpretation Code [facility] Work Phone: [phone] QRS axis, electrocardiogram 36 deg Invalid Interpretation Code [facility] Work Phone: [phone] QRS Duration 94 ms [facility] Work Phone: [phone] QRS duration, electrocardiogram 94 ms Invalid Interpretation Code [facility] Work Phone: [phone] QT Interval new path ms [facility] Work Phone: [phone] QT interval, electrocardiogram new path ms Invalid Interpretation Code [facility] Work Phone: [phone] T [place] 45 deg [facility] Work Phone: [phone] T wave axis, electrocardiogram 45 deg Invalid Interpretation Code [facility] Work Phone: [phone] Clinical Lists Update: 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 instructor 06-01-2012 Thyroxine (T4) free 0.88 ng/dL Invalid Interpretation Code [facility] Work Phone: [phone] Clinical Lists Update: 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 instructor 03-26-2012 Alanine aminotransferase (ALT) 18 U/L Invalid Interpretation Code [facility] Work Phone: [phone] Alkaline phosphatase (ALP) 146 U/L High [facility] Work Phone: [phone] ALP enzyme act/vol (Bld) 146 U/L High [facility] Work Phone: [phone] Aspartate aminotransferase (AST) 15 U/L Invalid Interpretation Code [facility] Work Phone: [phone] Erythrocyte sedimentation rate 10 mm/h Invalid Interpretation Code [facility] Work Phone: [phone] Clinical Lists Update: 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 instructor 03-13-2011 Bilirubin (total) 0.50 mg/dL Invalid Interpretation Code [facility] Work Phone: [phone] Erythrocyte distribution width Ratio (RBC) 13.1 % [facility] Work Phone: [phone] MCHC 34.2 % Invalid Interpretation Code [facility] Work Phone: [phone] MCHC mass conc (RBC) 34.2 % [facility] Work Phone: [phone] RDW-CA 13.1 % Invalid Interpretation Code [facility] Work Phone: [phone] Vital Signs Date Time Vital Sign Value Performing Clinician Faci lity 03-02-2024 15:20-0500 Body mass index (BMI) [Ratio] 23.44 kg/m2 Demarco Vogel MD Work Phone: [facility] 03-02-2024 15:20-0500 Body weight 54.43 kg Demarco Vogel MD Work Phone: [facility] 03-02-2024 15:20-0500 Diastolic blood pressure 82 mm[Hg] Demarco Vogel MD Work Phone: [facility] 03-02-2024 15:20-0500 Systolic blood pressure 134 mm[Hg] Demarco Vogel MD Work Phone: [facility] 02-26-2024 09:55-0500 Body height 152.4 cm Demarco Vogel MD Work Phone: [facility] 02-26-2024 09:55-0500 Body mass index (BMI) [Ratio] 23.44 kg/m2 Demarco Vogel MD Work Phone: [facility] 02-26-2024 09:55-0500 Body weight 54.43 kg Demarco Vogel MD Work Phone: [facility] 02-26-2024 09:55-0500 Diastolic blood pressure 78 mm[Hg] Demarco Vogel MD Work Phone: [facility] 02-26-2024 09:55-0500 Systolic blood pressure 124 mm[Hg] Demarco Vogel MD Work Phone: [facility] 12-24-2023 09:20-0500 Diastolic blood pressure 61 mm[Hg] Robyn Horvath MD Work Phone: [facility] 12-24-2023 09:20-0500 Heart rate 61 /min Robyn Horvath MD Work Phone: [facility] 12-24-2023 09:20-0500 Respiratory rate 15 /min Robyn Horvath MD Work Phone: [facility] 12-24-2023 09:20-0500 SaO2% (BldA) [Mass fraction] 99 % Robyn Horvath MD Work Phone: [facility] 12-24-2023 09:20-0500 Systolic blood pressure 122 mm[Hg] Robyn Horvath MD Work Phone: [facility] 12-24-2023 07:51-0500 Body mass index (BMI) [Ratio] 22.11 kg/m2 Robyn Horvath MD Work Phone: [facility] 12-24-2023 07:51-0500 Body temperature 96.49 [degF] Robyn Horvath MD Work Phone: [facility] 12-24-2023 07:51-0500 Body weight 52.2 kg Robyn Horvath MD Work Phone: [facility] 11-13-2023 11:03-0400 Body mass index (BMI) [Ratio] 22.09 kg/m2 Maren Sarthak SOC ANALYST.AVIONICS SYSTEMS REPAIRER Work Phone: [facility] 11-13-2023 11:03-0400 Body temperature 98.01 [degF] Maren Sarthak SOC ANALYST.AVIONICS SYSTEMS REPAIRER Work Phone: [facility] 11-13-2023 11:03-0400 Body weight 52.16 kg Maren Sarthak SOC ANALYST.AVIONICS SYSTEMS REPAIRER Work Phone: [facility] [place] 11-13-2023 11:03-0400 Diastolic blood pressure 76 mm[Hg] Maren Sarthak SOC ANALYST.AVIONICS SYSTEMS REPAIRER Work Phone: [facility] 11-13-2023 11:03-0400 Heart rate 64 /min Maren Sarthak SOC ANALYST.AVIONICS SYSTEMS REPAIRER Work Phone: [facility] 11-13-2023 11:03-0400 Respiratory rate 14 /min Maren Sarthak SOC ANALYST.AVIONICS SYSTEMS REPAIRER Work Phone: [facility] 11-13-2023 11:03-0400 SaO2% (BldA) [Mass fraction] 99 % Maren Sarthak SOC ANALYST.AVIONICS SYSTEMS REPAIRER Work Phone: [facility] 11-13-2023 11:03-0400 Systolic blood pressure 120 mm[Hg] Maren Sarthakyelitza ORTEGAAVIONICS SYSTEMS REPAIRER Work Phone: [facility] 10-13-2023 09:58-0400 Body height 152.4 cm Caryn Jarvis Jr., DO Work Phone: [facility] 10-13-2023 09:58-0400 Body mass index (BMI) [Ratio] 24.22 kg/m2 Caryn Jarvis Jr., DO Work Phone: [facility] 10-13-2023 09:58-0400 Body weight 56.25 kg Caryn Jarvis Jr., DO Work Phone: [facility] 10-13-2023 09:58-0400 Diastolic blood pressure 74 mm[Hg] Caryn Jarvis Jr. DO Work Phone: [facility] 10-13-2023 09:58-0400 Heart rate 65 /min Caryn Jarvis Jr., DO Work Phone: [facility] 10-13-2023 09:58-0400 SaO2% (BldA) [Mass fraction] 99 % Caryn Jarvis Jr., DO Work Phone: [facility] 10-13-2023 09:58-0400 Systolic blood pressure 130 mm[Hg] Caryn Jarvis Jr., DO Work Phone: [facility] 04-23-2023 13:05-0500 Body height 153.[address] Malvin Douglas Work Phone: [facility] 04-23-2023 13:05-0500 Body mass index (BMI) [Ratio] 22.1 kg/m2 Dr. Malvin Douglas Work Phone: [facility] 04-23-2023 13:05-0500 Body weight 52.[address] Malvin Douglas Work Phone: [facility] 04-23-2023 13:05-0500 Diastolic blood pressure 79 mm[Hg] Dr. Malvin Douglas Work Phone: [facility] 04-23-2023 13:05-0500 Heart rate 65 /min Dr. Malvin Douglas Work Phone: [facility] 04-23-2023 13:05-0500 Respiratory rate 18 /min Dr. Malvin Douglas Work Phone: [facility] 04-23-2023 13:05-0500 SaO2% (BldA) [Mass fraction] 99 % Dr. Malvin Douglas Work Phone: [facility] 04-23-2023 13:05-0500 Systolic blood pressure 127 mm[Hg] Dr. Malvin Douglas Work Phone: [facility] 04-02-2023 10:04-0500 Body height 152.4 cm Caryn Jarvis Jr., DO Work Phone: [facility] 04-02-2023 10:04-0500 Body mass index (BMI) [Ratio] 24.22 kg/m2 Caryn Jarvis Jr., DO Work Phone: [facility] 04-02-2023 10:04-0500 Body weight 56.25 kg Caryn Jarvis Jr., DO Work Phone: [facility] 04-02-2023 10:04-0500 Diastolic blood pressure 70 mm[Hg] Caryn Jarvis Jr., DO Work Phone: [facility] 04-02-2023 10:04-0500 Systolic blood pressure 116 mm[Hg] Caryn Jarvis Jr., DO Work Phone: [facility] 03-11-2023 08:22-0500 Body mass index (BMI) [Ratio] 22.1 kg/m2 Dr. Hawk Douglas Work Phone: [facility] 03-11-2023 08:22-0500 Body temperature 97.8 [degF] Dr. Hawk Douglas Work Phone: [facility] 03-11-2023 08:22-0500 Body weight 53.[address] Hawk Douglas Work Phone: [facility] 03-11-2023 08:22-0500 Diastolic blood pressure 70 mm[Hg] Dr. Hawk Douglas Work Phone: [facility] 03-11-2023 08:22-0500 Heart rate 78 /min Dr. Hawk Douglas Work Phone: [facility] 03-11-2023 08:22-0500 Respiratory rate 17 /min Dr. Hawk Douglas Work Phone: [facility] 03-11-2023 08:22-0500 SaO2% (BldA) [Mass fraction] 94 % Dr. Hawk Douglas Work Phone: [facility] 03-11-2023 08:22-0500 Systolic blood pressure 100 mm[Hg] Dr. Hawk Douglas Work Phone: [facility] 02-14-2023 08:01-0500 Body mass index (BMI) [Ratio] 23.6 kg/m2 Dr. Hawk Douglas Work Phone: [facility] 02-14-2023 08:01-0500 Body temperature 98.3 [degF] Dr. Hawk Douglas Work Phone: [facility] 02-14-2023 08:01-0500 Body weight 55.[address] Hawk Douglas Work Phone: [facility] 02-14-2023 08:01-0500 Diastolic blood pressure 78 mm[Hg] Dr. Hawk Douglas Work Phone: [facility] 02-14-2023 08:01-0500 Heart rate 84 /min Dr. Hawk Douglas Work Phone: [facility] 02-14-2023 08:01-0500 Respiratory rate 17 /min Dr. Hawk Douglas Work Phone: [facility] 02-14-2023 08:01-0500 SaO2% (BldA) [Mass fraction] 97 % Dr. Hawk Douglas Work Phone: [facility] 02-14-2023 08:01-0500 Systolic blood pressure 134 mm[Hg] Dr. Hawk Douglas Work Phone: [facility] 12-05-2022 14:23-0400 Body height 154.[address] Hawk Douglas Work Phone: [facility] 12-05-2022 14:23-0400 Body mass index (BMI) [Ratio] 23.3 kg/m2 Dr. aHwk Douglas Work Phone: [facility] 12-05-2022 14:23-0400 Body temperature 97.8 [degF] Dr. Hawk Douglas Work Phone: [facility] 12-05-2022 14:23-0400 Body weight 56.[address] Hawk Douglas Work Phone: [facility] 12-05-2022 14:23-0400 Diastolic blood pressure 70 mm[Hg] Dr. Hawk Douglas Work Phone: [facility] 12-05-2022 14:23-0400 Heart rate 72 /min Dr. Hawk Douglas Work Phone: [facility] 12-05-2022 14:23-0400 Respiratory rate 16 /min Dr. Hawk Douglas Work Phone: [facility] 12-05-2022 14:23-0400 SaO2% (BldA) [Mass fraction] 99 % Dr. Hawk Douglas Work Phone: [facility] 12-05-2022 14:23-0400 Systolic blood pressure 124 mm[Hg] Dr. Hawk Douglas Work Phone: [facility] 09-25-2022 12:33-0400 Body height 153.7 cm Caryn Jarvis Jr., DO Work Phone: [facility] 09-25-2022 12:33-0400 Body mass index (BMI) [Ratio] 23.97 kg/m2 Caryn Jarvis Jr., DO Work Phone: [facility] 09-25-2022 12:33-0400 Body temperature 98.71 [degF] Caryn Jarvis Jr., DO Work Phone: [facility] 09-25-2022 12:33-0400 Body weight 56.6 kg Caryn Jarvis Kavita, DO Work Phone: [facility] 09-25-2022 12:33-0400 Diastolic blood pressure 80 mm[Hg] Caryn Jarvis Jr., DO Work Phone: [facility] 09-25-2022 12:33-0400 Systolic blood pressure 130 mm[Hg] Caryn Jarvis Jr., DO Work Phone: 1(332)[phone] [place] [address] 08-07-2022 11:37-0400 Body height 153.7 cm Caryn Jarvis Jr., DO Work Phone: 7(598)[phone] [place] [address] 08-07-2022 11:37-0400 Body mass index (BMI) [Ratio] 23.97 kg/m2 Caryn Youngshavonne Patel., DO Work Phone: [facility] 08-07-2022 11:37-0400 Body temperature 98.71 [degF] Caryn Jarvis Jr., DO Work Phone: [facility] 08-07-2022 11:37-0400 Body weight 56.61 kg Caryn Jarvis Jr., DO Work Phone: [facility] 08-07-2022 11:37-0400 Diastolic blood pressure 78 mm[Hg] Caryn Jarvis Jr., DO Work Phone: [facility] 08-07-2022 11:37-0400 Systolic blood pressure 122 mm[Hg] Caryn Jarvis Jr., DO Work Phone: 7(896)[phone] [place] [address] 08-06-2022 11:03-0400 Body height 154.[address] Hawk Douglas Work Phone: [facility] 08-06-2022 11:03-0400 Body mass index (BMI) [Ratio] 23.6 kg/m2 Dr. Hawk Douglas Work Phone: [facility] 08-06-2022 11:03-0400 Body temperature 98.6 [degF] Dr. Hawk Douglas Work Phone: [facility] 08-06-2022 11:03-0400 Body weight 56.[address] Hawk Douglas Work Phone: [facility] 08-06-2022 11:03-0400 Diastolic blood pressure 82 mm[Hg] Dr. Hawk Douglas Work Phone: [facility] 08-06-2022 11:03-0400 Heart rate 69 /min Dr. Hawk Douglas Work Phone: [facility] 08-06-2022 11:03-0400 Respiratory rate 16 /min Dr. Hawk Douglas Work Phone: [facility] 08-06-2022 11:03-0400 SaO2% (BldA) [Mass fraction] 98 % Dr. Hawk Douglas Work Phone: [facility] 08-06-2022 11:03-0400 Systolic blood pressure 120 mm[Hg] Dr. Hawk Douglas Work Phone: [facility] 04-03-2022 08:55-0500 Body height 154.[address] Hawk Douglas Work Phone: [facility] 04-03-2022 08:55-0500 Body mass index (BMI) [Ratio] 22.9 kg/m2 Dr. Hawk Douglas Work Phone: [facility] 04-03-2022 08:55-0500 Body temperature 99.6 [degF] Dr. Hawk Douglas Work Phone: [facility] 04-03-2022 08:55-0500 Body weight 55.[address] Hawk Douglas Work Phone: [facility] 04-03-2022 08:55-0500 Diastolic blood pressure 70 mm[Hg] Dr. Hawk Douglas Work Phone: [facility] 04-03-2022 08:55-0500 Heart rate 83 /min Dr. Hawk Douglas Work Phone: [facility] 04-03-2022 08:55-0500 Respiratory rate 16 /min Dr. Hawk Douglas Work Phone: [facility] 04-03-2022 08:55-0500 SaO2% (BldA) [Mass fraction] 99 % Dr. Hawk Douglas Work Phone: [facility] 04-03-2022 08:55-0500 Systolic blood pressure 110 mm[Hg] Dr. Hawk Douglas Work Phone: [facility] 12-13-2021 08:17-0400 Body height 153.7 cm Robyn Horvath MD Work Phone: [facility] 12-13-2021 08:17-0400 Body temperature 98.29 [degF] Robyn Horvath MD Work Phone: [facility] 12-13-2021 08:17-0400 Body weight 55.34 kg Robyn Horvath MD Work Phone: [facility] 12-13-2021 08:17-0400 Diastolic blood pressure 78 mm[Hg] Robyn Horvath MD Work Phone: [facility] 12-13-2021 08:17-0400 Heart rate 98 /min Robyn Horvath MD Work Phone: [facility] 12-13-2021 08:17-0400 Respiratory rate 14 /min Robyn Horvath MD Work Phone: [facility] 12-13-2021 08:17-0400 SaO2% (BldA) [Mass fraction] 99 % Robyn Horvath MD Work Phone: [facility] 12-13-2021 08:17-0400 Systolic blood pressure 104 mm[Hg] Robyn Horvath MD Work Phone: [facility] 12-04-2021 11:09-0400 Diastolic blood pressure 67 mm[Hg] Robyn Horvath MD Work Phone: [facility] 12-04-2021 11:09-0400 Heart rate 67 /min Robyn Horvath MD Work Phone: [facility] 12-04-2021 11:09-0400 Respiratory rate 16 /min Robyn Horvath MD Work Phone: [facility] 12-04-2021 11:09-0400 SaO2% (BldA) [Mass fraction] 99 % Robyn Horvath MD Work Phone: [facility] 12-04-2021 11:09-0400 Systolic blood pressure 133 mm[Hg] Robyn Horvath MD Work Phone: [facility] 12-04-2021 09:32-0400 Body temperature 98.49 [degF] Robyn Horvath MD Work Phone: [facility] 12-04-2021 09:32-0400 Body weight 54.9 kg Robyn Horvath MD Work Phone: [facility] 11-05-2021 09:42-0400 Body height 154.[address] Hawk Douglas Work Phone: [facility] Work Phone: 11-05-2021 09:42-0400 Body mass index (BMI) [Ratio] 23.3 kg/m2 Dr. Hawk Douglas Work Phone: [facility] Work Phone: 11-05-2021 09:42-0400 Body weight 56.[address] Hawk Douglas Work Phone: [facility] Work Phone: 11-05-2021 09:42-0400 Diastolic blood pressure 70 mm[Hg] Dr. Hawk Douglas Work Phone: [facility] Work Phone: 11-05-2021 09:42-0400 Heart rate 72 /min Dr. Hawk Douglas Work Phone: [facility] Work Phone: 11-05-2021 09:42-0400 Respiratory rate 16 /min Dr. Hawk Douglas Work Phone: [facility] Work Phone: 11-05-2021 09:42-0400 Systolic blood pressure 114 mm[Hg] Dr. Hawk Douglas Work Phone: [facility] Work Phone: 09-09-2016 14:48-0400 BMI (Body Mass Index) 23.24 kg/m2 Anil Pa [facility] Work Phone: 09-09-2016 14:48-0400 BP Diastolic 76 mm[Hg] Anil Pa [facility] Work Phone: 09-09-2016 14:48-0400 BP Systolic 106 mm[Hg] Dgkathrynulysses Pa [facility] Work Phone: 09-09-2016 14:48-0400 Height 154.94 cm Anil Pa [facility] Work Phone: 09-09-2016 14:48-0400 Pulse (Heart Rate) 74 /min Anil Pa [facility] Work Phone: 09-09-2016 14:48-0400 Respiratory Rate 18 /min Anil Pa [facility] Work Phone: 09-09-2016 14:48-0400 Weight 55.79 kg Anil Pa [facility] Work Phone: 09-11-2015 13:51-0400 BMI (Body Mass Index) 23.99 kg/m2 Zakiya Wise RN [facility] Work Phone: 09-11-2015 13:51-0400 BP Diastolic 74 mm[Hg] Zakiya Wise RN [facility] Work Phone: 09-11-2015 13:51-0400 BP Systolic 106 mm[Hg] Zakiya Wise RN [facility] Work Phone: 09-11-2015 13:51-0400 BSA (Body Surface Area) 1.56 m2 Zakiya Wise RN [facility] Work Phone: 09-11-2015 13:51-0400 Pulse (Heart Rate) 68 /min Zakiya Wise RN [facility] Work Phone: 09-11-2015 13:51-0400 Respiratory Rate 16 /min Zakiya Wise RN [facility] Work Phone: 09-11-2015 13:51-0400 Weight 57.61 kg Zakiya Wise RN [facility] Work Phone: 08-12-2012 14:16-0400 Heart rate 70 /min [facility] Work Phone: 08-12-2012 14:16-0400 Heart rate 401 ms [facility] Work Phone: 08-02-2011 15:13-0400 Height 154.94 cm Zakiya Wise RN [facility] [employer] Work Phone: Encounters Encounter Date Encounter Type Care Provider Facility Start: 08-05-2024 ambulatory Nirmal [facility] Facility :[facility] Start: 07-19-2024 ambulatory Konrad Durant Facility :[facility] Start: 06-24-2024 End: 06-24-2024 ambulatory [facility] Facility:[facility] Start: 06-11-2024 ambulatory [facility] Facility :[facility] Start: 06-07-2024 End: 06-07-2024 ambulatory [facility] Facility:[facility] Start: 05-12-2024 ambulatory Malvin Baires lity:[facility] Start: 05-10-2024 End: 05-10-2024 ambulatory Nirmal [facility] Start: 04-21-2024 ambulatory Aramis Rivera Facility :[facility] Start: 04-16-2024 Encounter for other preprocedural examination Nirmal Head [facility] Start: 04-13-2024 End: 04-13-2024 ambulatory Nirmal Head Facility:[facility] Start: 04-05-2024 End: 04-05-2024 ambulatory Nirmal Head Facility:[facility] Start: 03-31-2024 End: 03-31-2024 ambulatory Nirmal Head Facility:[facility] Start: 03-19-2024 End: 03-19-2024 ambulatory Nirmal Head Facility:[facility] Start: 03-18-2024 End: 03-18-2024 ambulatory [facility] Facility:[facility] Start: 03-03-2024 End: 03-03-2024 Telephone encounter Demarco Vogel MD Work Phone: OB/Gynecology Comment on above: Pessary Start: 03-02-2024 End: 03-02-2024 ambulatory DEMARCO VOGEL Facility:[facility] Start: 03-02-2024 End: 03-02-2024 Patient encounter procedure Demarco Vogel MD Work Phone: OB/Gynecology Comment on above: Cystocele, midline ( Primary Dx); Urinary frequency Start: 02-26-2024 End: 02-26-2024 ambulatory DEMARCO VOGEL Facility:[facility] Start: 02-26-2024 End: 02-26-2024 Patient encounter procedure Demarco Vogel MD Work Phone: OB/Gynecology Comment on above: Encounter for gyneco logical examination (general) (routine) without abnormal findings (Primary Dx); Encounter for screening mammogram for malignant neoplasm of breast Start: 02-26-2024 End: 02-26-2024 Patient encounter status Demarco Vogel MD Work Phone: [facility] Start: 02-13-2024 End: 02-13-2024 ambulatory Lukedillon Stella [facility] Start: 02-05-2024 End: 02-05-20[facility] Start: 01-29-2024 End: 01-29-2024 ambulatory [facility] Facility:[facility] Start: 01-26-2024 End: 01-26-2024 ambulatory [facility] Facility:[facility] Start: 12-24-2023 End: 12-24-2023 ambulatory ROBYN HORVATH Facility:[facility] Start: 12-24-2023 End: 12-24-2023 Subsequent hospital visit by physician Robyn Horvath MD Work Phone: Ambulatory Surgery Comment on above: Screen for colon can cer [Z12.11] Start: 12-15-2023 End: 12-15-2023 ambulatory [facility] Start: 12-11-2023 End: 12-11-2023 ambulatory [facility] Facility:[facility] Start: 12-09-2023 End: 12-09-2023 ambulatory [facility] Facility:[facility] Start: 11-13-2023 End: 11-13-2023 ambulatory ROBYN HORVATH Facility:[facility] Start: 11-13-2023 End: 11-13-2023 Patient encounter procedure Maren Herrmann APRN.CNP Work Phone: General Surgery Comment on above: Screen for colon can cer (Primary Dx); Adenomatous polyp of colon, unspecified part of colon; Family history of colon cancer in father Start: 10-15-2023 ambulatory Tameka Connolly [employer] [facility] Start: 10-15-2023 End: 10-17-2023 ambulatory Tameka Connolly [employer] Facility:[facility] Start: 10-14-2023 End: 10-14-2023 ambulatory [facility] Facility[facility] Start: 10-13-2023 End: 10-13-2023 Office outpatient visit 40 minutes Caryn Jarvis DO [facility] Comment on above: Dry mouth (Primary D x); Xerostomia; Hypoproteinemia; Hypothyroidism, unspecified type; Fibromyalgia; History of neuropathy; Keratoconjunctivitis sicca; DDD (degenerative disc disease), cervical; Lumbar degenerative disc disease; Thoracogenic scoliosis of thoracic region; Thoracic degenerative disc disease; Leukopenia, unspecified type; Lymphopenia; SCOTT positive; Dry eyes; Encounter for monitoring denosumab therapy; Family history of rheumatoid arthritis; History of fibromyalgia; History of osteoporosis; MCC current use of non-steroidal anti-inflammatories (NSAID); Long-term use of high-risk medication; Neutropenia, unspecified type; Positive double stranded 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 Facility:[facility] Start: 09-18-2023 End: 09-19-2023 Office outpatient new 45 minutes Srini Daley MD Work Phone: [facility] [place] Comment on above: Diplopia (Primary Dx ); Esotropia, right eye Start: 09-18-2023 ambulatory SRINI DALEY Facility:[facility] Start: 09-15-2023 ambulatory Tameka Connolly NP Fa cility:[facility] Start: 09-15-2023 End: 09-17-2023 ambulatory Tameka Connolly NP Facility:[facility] Start: 09-09-2023 End: 09-09-2023 ambulatory Malvin Douglas [facility] Start: 09-09-2023 End: 09-09-2023 [facility] Start: 09-05-2023 End: 09-05-2023 ambulatory Malvin Douglas Facility:[facility] Start: 09-01-2023 End: 09-01-2023 [facility] Start: 09-01-2023 End: 09-01-2023 [facility] Start: 05-23-2023 End: 05-23-[address] Malvin Douglas Work Phone: [facility] Work Phone: Start: 05-23-2023 End: 05-23-[address] Malvin Douglas Work Phone: [facility] Work Phone: Start: 04-23-2023 End: 04-23-[address] Malvin Douglas Work Phone: [facility] Work Phone: Start: 04-10-2023 End: 04-10-[address] Hawk Douglas Work Phone: [facility] Work Phone: Start: 04-10-2023 End: 04-10-[address] Hawk Douglas Work Phone[facility] Work Phone: Start: 04-02-2023 End: 04-02-2023 Office outpatient visit 25 minutes Caryn Jarvis DO Work Phone: [facility] Rheumatology Comment on above: Hypothyroidism, unsp ecified type (Primary Dx); Keratoconjunctivitis sicca; History of neuropathy; Fibromyalgia; Thoracic degenerative disc disease; Thoracogenic scoliosis of thoracic region; Lumbar degenerative disc disease; DDD (degenerative disc disease), cervical; Long-term use of high-risk medication; MCC current use of systemic steroids; History of osteoporosis; History of fibromyalgia; Family history of rheumatoid arthritis; Dry eyes; Leukopenia, unspecified type; Other proteinuria; Positive double stranded 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 Start: 03-11-2023 End: 03-11-[address] Hawk Douglas Work Phone: [facility] Start: 03-11-2023 End: 03-11-[address] Hawk Douglas Work Phone: [facility] Work Phone: Start: 02-14-2023 End: 02-14-[address] Hawk Douglas Work Phone: [facility] Work Phone: Start: 01-07-2023 End: 01-07-[address] Hawk Douglas Work Phone: [facility] Work Phone: Start: 01-07-2023 End: 01-07-[address] Hawk Douglas Work Phone: [facility] [place] Work Phone: Start: 01-03-2023 End: 01-03-[address] Hawk Douglas Work Phone: [facility] Work Phone: Start: 01-03-2023 End: 01-03-[address] Hawk Douglas Work Phone: [facility] Work Phone: Start: 12-30-2022 End: 12-30-[address] Hawk Douglas Work Phone: [facility] Work Phone: Start: 12-30-2022 End: 12-30-[address] Hawk Douglas Work Phone: [facility]-Outpatient Breast Imaging Work Phone: Start: 12-05-2022 End: 12-05-[address] Hawk Douglas Work Phone: [facility] Work Phone: Start: 10-22-2022 End: 10-22-[address] Hawk Douglas Work Phone: [facility] Work Phone: Start: 10-22-2022 End: 10-22-[address] Hawk Douglas Work Phone: [facility] Work Phone: Start: 09-25-2022 End: 09-25-2022 Office outpatient visit 40 minutes Caryn Jarvis DO Work Phone: [facility] Rheumatology Comment on above: Hypocalcemia (Primar [...] stranded DNA antibody test; Other proteinuria Start: 09-23-2022 End: 09-23-[address] Hawk Douglas Work Phone: [facility] Work Phone: Start: 09-23-2022 End: 09-23-[address] Hawk Douglas Work Phone: [facility]-Physical Therapy Work Phone: Start: 09-17-2022 End: 09-17-[address] Hawk Douglas Work Phone: [facility] Work Phone: Start: 09-17-2022 End: 09-17-[address] Hawk Douglas Work Phone: [facility]-Outpatient Bone Densitometry Work Phone: Start: 09-16-[address] Leland Douglas Work Phone: [facility]Physical Therapy Work Phone: Start: 09-12-[address] Leland Douglas Work Phone: [facility] Work Phone: Start: 08-29-[address] Leland Douglas Work Phone: [facility]Physical Therapy Work Phone: Start: 08-27-2022 End: 08-27-[address] Hawk Douglas Work Phone: [facility] Work Phone: Start: 08-27-2022 End: 08-27-[address] Hawk Douglas Work Phone: [facility]-Laboratory, Specimen Work Phone: Start: 08-16-2022 End: 08-16-[address] Hawk Douglas Work Phone: [facility] Work Phone: Start: 08-16-2022 End: 08-16-[address] Hawk Douglas Work Phone: [facility] [place] Work Phone: Start: 08-13-2022 ambulatory MALVIN DOUGLAS [facility] Start: 08-09-2022 End: 08-09-[address] Hawk Douglas Work Phone: [facility] Work Phone: Start: 08-09-2022 End: 08-09-[address] Hawk Douglas Work Phone: [facility] [place] Work Phone: Start: 08-07-2022 End: 08-07-2022 Office outpatient new 45 minutes Caryn Jarvis DO Work Phone: [facility] Rheumatology Comment on above: Cervicalgia (Primary [...] Ankylosing spondylitis, unspecified site of spine Start: 08-06-2022 End: 08-06-[address] Hawk Douglas [facility] Work Phone: Start: 07-18-2022 End: 07-18-[address] Hawk Douglas Work Phone: [facility] Work Phone: Start: 07-18-2022 End: 07-18-[address] Hawk Douglas [facility] Start: 05-13-2022 End: 05-13-[address] Hawk Douglas [facility] Start: 05-08-2022 Non-patient / Non-visit Dr. Stewart Douglas Work Phone: [facility] Start: 05-08-2022 End: 05-08-[address] Hawk Douglas Work Phone: [facility] Work Phone: Start: 05-08-2022 End: 05-08-[address] Hawk Douglas Work Phone: [facility]-Pulmonary Services/Neurology Start: 04-24-2022 End: 04-24-[address] Hawk Douglas Work Phone: [facility] Radiology Start: 04-03-2022 End: 04-03-[address] Hawk Douglas Work Phone: [facility] Work Phone: Start: 04-03-2022 End: 04-03-[address] Hawk Douglas Work Phone: [facility] Start: 04-03-2022 End: 04-03-[address] Hawk Douglas Work Phone: [facility] Start: 01-15-2022 End: 01-15-[address] Hawk Douglas Work Phone: [facility] Work Phone: Start: 01-15-2022 End: 01-15-[address] Hawk Douglas Work Phone: [facility] Start: 01-03-2022 End: 01-03-[address] Hawk Douglas Work Phone: [facility], Specimen Start: 12-17-2021 End: 12-17-[address] Hawk Douglas Work Phone: [facility] Work Phone: Start: 12-17-2021 End: 12-17-[address] Hawk Douglas Work Phone: [facility]-Outpatient Breast Imaging Start: 12-13-2021 End: 12-13-2021 Patient encounter procedure Robyn Horvath MD Work Phone: General Surgery Comment on above: Adenomatous polyp of colon, unspecified part of colon (Primary Dx) Start: 12-04-2021 End: 12-04-2021 Subsequent hospital visit by physician Robyn Horvath MD Work Phone: Ambulatory Surgery Comment on above: Family history of ma lignant neoplasm of gastrointestinal tract [Z80.0] Start: 11-09-2021 End: 11-09-[address] Hawk Douglas Work Phone: [facility] Work Phone: Start: 11-09-2021 End: 11-09-[address] Hawk Douglas Work Phone: [facility] Start: 11-05-2021 End: 11-05-[address] Hawk Douglas Work Phone: [facility] Start: 05-24-2021 End: 05-24-2021 Patient encounter procedure [facility] Start: 05-16-2017 End: 05-16-2017 Ambulatory Ashley Scott Facility:[facility] Start: 11-13-2016 Ambulatory Demarco Talamantes Fac ility:[facility] Start: 09-12-2016 Ambulatory Reema Nelson Facili ty:[facility] Procedures Date Procedure Procedure Detail Performing Clinician Start: 12-24-2023 Colonoscopy flx dx w/collj spec when pfrmd Maren Herrmann SOC ANALYST.AVIONICS SYSTEMS REPAIRER Work Phone: Start: 12-24-2023 Colonoscopy Robyn Horvath MD Work Phone: Start: 05-23-2023 MRI of lumbar spine Dr. Malvin ellington Work Phone: Start: 04-10-2023 Plain x-ray of pelvis and lower extremity Dr. Hawk Douglas Work Phone: Start: 03-11-2023 Complete x-ray series of lumbar spine with bending views Dr. Hawk Douglas Work Phone: Start: 01-07-2023 Diagnostic radiography of abdomen, decubitus and erect Dr. Hawk Douglas Work Phone: Start: 12-30-[address] Hawk mahmood Work Phone: Start: 09-25-2022 End: 10-13-2023 Laboratory test result abnormal Abnormal serum KIMBERLY level Caryn Jarvis DO Work Phone: Start: 09-17-2022 Dual energy X-ray absorptiometry Dr. Hawk Douglas Work Phone: Start: 08-27-[address] Hawk ro Work Phone: Start: 08-16-2022 Ova [place] parasites identification Dr. Hawk Douglas Work Phone: Start: 08-09-2022 Plain chest X-ray Dr. Hawk ro Work Phone: Start: 08-09-2022 Radiography of thoracic spine Dr. Hawk Douglas Work Phone: Start: 05-13-2022 Plain chest X-ray Dr. Hawk ro Work Phone: Start: 04-24-2022 X-ray of both feet Dr. Hawk ro Work Phone: Start: 12-17-[address] Hawk mahmood Work Phone: Start: 12-04-2021 Colonoscopy flx dx w/collj spec when pfrmd Robyn Horvath MD Work Phone: Start: 12-04-2021 Colonoscopy Robyn Horvath MD Work Phone: Start: 05-24-2021 Radiography of mandible Start: 05-24-2021 Complete x-ray series of lumbar spine with bending views Start: 05-24-2021 Radiography of thoracic spine Start: 05-24-2021 X-ray of cervical spine Start: 08-24-2018 Mammography Robyn Horvath MD Work Phone: Start: 05-16-2017 Anesthesia external middle & inner ear w/bx nos Ashley Scott Start: 05-16-2017 Unlisted procedure inner ear Ashley Scott Start: 09-09-2016 End: 09-09-2016 Follow Up Appt 1 year Mac Serrato Start: 09-09-2016 End: 09-09-2016 PFM Mac Bynum MD Start: 09-11-2015 End: 08-27-2016 Follow Up Appt 1 year Mac Serrato Start: 09-11-2015 End: 08-27-2016 PFLuca Bynum MD Start: 08-24-2014 End: 08-25-2014 Documentation [...] MD Start: 10-18-2010 Lipid 1996 panel - Serum or Plasma Maren Herrmann APRN.AVIONICS SYSTEMS REPAIRER Work Phone: Laboratory test resu lt abnormal Abnormal serum KIMBERLY level Caryn Jarvis DO Work Phone: Plan of Treatment Date Care Activity Detail Author Start: 09-08-2033 Tetanus vaccination TETANUS [facility] Start: 09-08-2033 Urine microalbumin profile DTaP,Tdap,Td Vaccine (4 - Td or Tdap) [facility] Start: 12-04-2026 Colonoscopy COLONOSCOPY [facility] Start: 12-04-2026 COLORECTAL CANCER SCREENING COLORECTAL CANCER SCREENING [facility] Start: 12-23-2025 Screening for malignant neoplasm of colon [facility] Start: 09-08-2024 Tetanus vaccination TETANUS [facility] Start: 03-02-2024 End: 03-02-2024 Patient encounter procedure 03/02/2024 3:20 PM EST Office Visit OB/Gynecology [address] [place], [place] [id number] Demarco Vogel MD [address] [place], [place] [id number] Pess[facility] OB/Gynecology Comment on above: Pessary Fitting Start: 02-26-2024 End: 02-26-2024 Patient encounter procedure 02/26/2024 9:40 AM EST Office Visit OB/Gynecology [address] [place] [address] Demarco Vogel MD [address] [place] [address] annual OB/Gynecology Comment on above: annual Start: 02-18-2024 Advance Directive Discussion Advance Directive Discussion [facility] Start: 01-29-2024 End: 01-29-2024 Patient encounter procedure 01/29/2024 2:00 PM EST Office Visit [facility] [place] [address] [place] [address] Srini Daley MD [address] [place], [place] [id number] [facility] [place] Start: 12-24-2023 End: 12-24-2023 Patient encounter procedure 12/24/2023 9:45 AM EST Appointment Ambulatory Surgery [address] [place], [place] [id number] Robyn Horvath MD [address] [address] Ambulatory Surgery Start: 12-05-2023 Colonoscopy COLONOSCOPY [facility] Start: 12-05-2023 COLORECTAL CANCER SCREENING COLORECTAL CANCER SCREENING [facility] Start: 12-05-2023 Screening for malignant neoplasm of colon [facility] Start: 11-27-2023 End: 08-26-2024 Sensormotor xm w/advanced clinical specialist zaid ocular devij w/i&r spx [place] SENSORMOTOR XM W/TEMPLATE INSPECTOR ZAID OCULAR DEVIJ W/I&R SPX [place] Charge Routine Diplopia Expected: 11/27/2023 (Approximate), Expires: 08/26/2024 [facility] Comment on above: Expected: 11/27/2023 (Approximate), Expi res: 08/26/2024 Start: 11-06-2023 End: 11-06-2023 Patient encounter procedure 11/06/2023 1:00 PM EDT Office Visit [facility] [place] [address] [place] [phone] Umu Nash MD [address] [place] [address] [facility] [place] Start: 10-19-2023 Covid-19 Vaccine ( season) Covid-19 Vaccine () [facility] Start: 10-19-2023 Influenza vaccination INFLUENZA VACCINE (#1) [facility] Start: 10-13-2023 End: 10-13-2023 Patient encounter procedure [facility] Start: 09-14-2023 End: 04-02-2024 SCOTT [...] KIMBERLY level Expected: 09/14/2023 (Approximate), Expires: 04/02/2024 [facility] Comment on above: Expected: 09/14/2023 (Approximate), [...] KIMBERLY level Expected: 09/14/2023 (Approximate), Expires: 04/02/2024 [facility] Comment on above: Expected: 09/14/2023 (Approximate), Expi res: 04/02/2024 Start: 09-14-2023 End: 04-02-2024 C-reactive protein C REACTIVE PROTEIN Lab Routine Hypothyroidism, unspecified type Keratoconjunctivitis sicca History of neuropathy Fibromyalgia Thoracic degenerative disc disease Thoracogenic scoliosis of thoracic region Lumbar degenerative disc disease DDD (degenerative disc disease), cervical Long-term use of high-risk medication MCC current use of systemic steroids History of osteoporosis History of fibromyalgia Family history of rheumatoid arthritis Dry eyes Leukopenia, unspecified type Other proteinuria Positive double stranded DNA antibody test Ketonuria Other microscopic hematuria SCOTT positive Abnormal serum KIMBERLY level Expected: 09/14/2023 (Approximate), Expires: 04/02/2024 [facility] Comment on above: Expected: 09/14/2023 (Approximate), Expi res: 04/02/2024 Start: 09-14-2023 End: 04-02-2024 C3 COMPLEMENT C3 COMPLEMENT Lab Routine Hypothyroidism, unspecified type Keratoconjunctivitis sicca History of neuropathy Fibromyalgia Thoracic degenerative disc disease Thoracogenic scoliosis of thoracic region Lumbar degenerative disc disease DDD (degenerative disc disease), cervical Long-term use of high-risk medication MCC current use of systemic steroids History of osteoporosis History of fibromyalgia Family history of rheumatoid arthritis Dry eyes Leukopenia, unspecified type Other proteinuria Positive double stranded DNA antibody test Ketonuria Other microscopic hematuria SCOTT positive Abnormal serum KIMBERLY level Expected: 09/14/2023 (Approximate), Expires: 04/02/2024 [facility] Comment on above: Expected: 09/14/2023 (Approximate), Expi res: 04/02/2024 Start: 09-14-2023 End: 04-02-2024 C4 COMPLEMENT C4 COMPLEMENT Lab Routine Hypothyroidism, unspecified type Keratoconjunctivitis sicca History of neuropathy Fibromyalgia Thoracic degenerative disc disease Thoracogenic scoliosis of thoracic region Lumbar degenerative disc disease DDD (degenerative disc disease), cervical Long-term use of high-risk medication MCC current use of systemic steroids History of osteoporosis History of fibromyalgia Family history of rheumatoid arthritis Dry eyes Leukopenia, unspecified type Other proteinuria Positive double stranded DNA antibody test Ketonuria Other microscopic hematuria SCOTT positive Abnormal serum KIMBERLY level Expected: 09/14/2023 (Approximate), Expires: 04/02/2024 [facility] Comment on above: Expected: 09/14/2023 (Approximate), [...] KIMBERLY level Expected: 09/14/2023 (Approximate), Expires: 04/02/2024 [facility] Comment on above: Expected: 09/14/2023 (Approximate), [...] KIMBERLY level Expected: 09/14/2023 (Approximate), Expires: 04/02/2024 [facility] Comment on above: Expected: 09/14/2023 (Approximate), Expi res: 04/02/2024 Start: 09-14-2023 End: 04-02-2024 Comprehensive metabolic 2000 panel - Serum or Plasma COMPREHENSIVE METABOLIC PANEL Lab Routine Hypothyroidism, unspecified type Keratoconjunctivitis sicca History of neuropathy Fibromyalgia Thoracic degenerative disc disease Thoracogenic scoliosis of thoracic region Lumbar degenerative disc disease DDD (degenerative disc disease), cervical Long-term use of high-risk medication MCC current use of systemic steroids History of osteoporosis History of fibromyalgia Family history of rheumatoid arthritis Dry eyes Leukopenia, unspecified type Other proteinuria Positive double stranded DNA antibody test Ketonuria Other microscopic hematuria SCOTT positive Abnormal serum KIMBERLY level Expected: 09/14/2023 (Approximate), Expires: 04/02/2024 [facility] Comment on above: Expected: 09/14/2023 (Approximate), [...] KIMBERLY level Expected: 09/14/2023 (Approximate), Expires: 04/02/2024 [facility] Comment on above: Expected: 09/14/2023 (Approximate), Expi res: 04/02/2024 Start: 09-14-2023 End: 04-02-2024 SJOGREN'S AB SSA,SSB SJOGREN'S AB SSA,SSB Lab Routine Hypothyroidism, unspecified type Keratoconjunctivitis sicca History of neuropathy Fibromyalgia Thoracic degenerative disc disease Thoracogenic scoliosis of thoracic region Lumbar degenerative disc disease DDD (degenerative disc disease), cervical Long-term use of high-risk medication MCC current use of systemic steroids History of osteoporosis History of fibromyalgia Family history of rheumatoid arthritis Dry eyes Leukopenia, unspecified type Other proteinuria Positive double stranded DNA antibody test Ketonuria Other microscopic hematuria SCOTT positive Abnormal serum KIMBERLY level Expected: 09/14/2023 (Approximate), Expires: 04/02/2024 [email or web address] Comment on above: Expected: 09/14/2023 (Approximate), [...] KIMBERLY level Expected: 09/14/2023 (Approximate), Expires: 04/02/2024 [facility] Comment on above: Expected: 09/14/2023 (Approximate), Expi res: 04/02/2024 Start: 09-14-2023 End: 04-02-2024 Urinalysis, reagent strip without microscopy URINALYSIS, MACRO Fluids Routine Hypothyroidism, unspecified type Keratoconjunctivitis sicca History of neuropathy Fibromyalgia Thoracic degenerative disc disease Thoracogenic scoliosis of thoracic region Lumbar degenerative disc disease DDD (degenerative disc disease), cervical Long-term use of high-risk medication MCC current use of systemic steroids History of osteoporosis History of fibromyalgia Family history of rheumatoid arthritis Dry eyes Leukopenia, unspecified type Other proteinuria Positive double stranded DNA antibody test Ketonuria Other microscopic hematuria SCOTT positive Abnormal serum KIMBERLY level Expected: 09/14/2023 (Approximate), Expires: 04/02/2024 [facility] Comment on above: Expected: 09/14/2023 (Approximate), Expi res: 04/02/2024 Start: 04-02-2023 End: 04-02-2023 Patient encounter procedure 04/02/2023 10:00 AM EST Office Visit [facility] Rheumatology [address] [place] [address] Caryn Jarvis Jr., DO [address] [place] [address] [facility] Start: 02-17-2023 Advance Directive Discussion Advance Directive Discussion [facility] Start: 01-07-2023 Diagnostic radiography of abdomen, decubitus and erect [employer] Decub and/or Erect [facility] Start: 10-18-2022 COVID-19 VACCINE () COVID-19 VACCINE () [facility] Start: 10-18-2022 Influenza vaccination INFLUENZA VACCINE (#1) [facility] Start: 09-25-2022 End: 09-25-2022 Patient encounter procedure 09/25/2022 12:30 PM EDT Office Visit [facility] [address] [place] [address] Caryn Jarvis Jr., DO [address] [place] [address] [facility] Start: 08-09-2022 Borrelia burgdorferi blot test [facility] Start: 08-09-2022 Folic acid measurement, RBC [facility] Start: 08-09-2022 Serum immunofixation [facility] Start: 08-09-2022 Thiamine measurement [facility] Start: 08-09-2022 Vitamin B6 measurement [facility] Start: 08-09-2022 [facility] Start: 08-07-2022 End: 08-08-2023 SCOTT MULTIPLEX SCRN [...] lower extremity Expected: 08/07/2022 (Approximate), Expires: 08/08/2023 [facility] Comment on above: Expected: 08/07/2022 (Approximate), [...] lower extremity Expected: 08/07/2022 (Approximate), Expires: 08/08/2023 [facility] Comment on above: Expected: 08/07/2022 (Approximate), [...] lower extremity Expected: 08/07/2022 (Approximate), Expires: 08/08/2023 [facility] Comment on above: Expected: 08/07/2022 (Approximate), [...] lower extremity Expected: 08/07/2022 (Approximate), Expires: 08/08/2023 [facility] Comment on above: Expected: 08/07/2022 (Approximate), [...] lower extremity Expected: 08/07/2022 (Approximate), Expires: 08/08/2023 [facility] Comment on above: Expected: 08/07/2022 (Approximate), [...] lower extremity Expected: 08/07/2022 (Approximate), Expires: 08/08/2023 [facility] Comment on above: Expected: 08/07/2022 (Approximate), [...] lower extremity Expected: 08/07/2022 (Approximate), Expires: 08/08/2023 [facility] Comment on above: Expected: 08/07/2022 (Approximate), [...] lower extremity Expected: 08/07/2022 (Approximate), Expires: 08/08/2023 [facility] Comment on above: Expected: 08/07/2022 (Approximate), [...] lower extremity Expected: 08/07/2022 (Approximate), Expires: 08/08/2023 [facility] Comment on above: Expected: 08/07/2022 (Approximate), [...] lower extremity Expected: 08/07/2022 (Approximate), Expires: 08/08/2023 [facility] Comment on above: Expected: 08/07/2022 (Approximate), [...] lower extremity Expected: 08/07/2022 (Approximate), Expires: 08/08/2023 [facility] Comment on above: Expected: 08/07/2022 (Approximate), [...] of spine Expected: 08/07/2022 (Approximate), Expires: 08/08/2023 [facility] Comment on above: Expected: 08/07/2022 (Approximate), [...] lower extremity Expected: 08/07/2022 (Approximate), Expires: 08/08/2023 [facility] Comment on above: Expected: 08/07/2022 (Approximate), [...] lower extremity Expected: 08/07/2022 (Approximate), Expires: 08/08/2023 [facility] Comment on above: Expected: 08/07/2022 (Approximate), [...] lower extremity Expected: 08/07/2022 (Approximate), Expires: 08/08/2023 [facility] Comment on above: Expected: 08/07/2022 (Approximate), [...] lower extremity Expected: 08/07/2022 (Approximate), Expires: 08/08/2023 [facility] Comment on above: Expected: 08/07/2022 (Approximate), [...] lower extremity Expected: 08/07/2022 (Approximate), Expires: 08/08/2023 [facility] Comment on above: Expected: 08/07/2022 (Approximate), [...] lower extremity Expected: 08/07/2022 (Approximate), Expires: 08/08/2023 [facility] Comment on above: Expected: 08/07/2022 (Approximate), [...] lower extremity Expected: 08/07/2022 (Approximate), Expires: 08/08/2023 [facility] Comment on above: Expected: 08/07/2022 (Approximate), [...] lower extremity Expected: 08/07/2022 (Approximate), Expires: 08/08/2023 [facility] Comment on above: Expected: 08/07/2022 (Approximate), [...] lower extremity Expected: 08/07/2022 (Approximate), Expires: 08/08/2023 [facility] Comment on above: Expected: 08/07/2022 (Approximate), [...] lower extremity Expected: 08/07/2022 (Approximate), Expires: 08/08/2023 [facility] Comment on above: Expected: 08/07/2022 (Approximate), [...] lower extremity Expected: 08/07/2022 (Approximate), Expires: 08/08/2023 [facility] Comment on above: Expected: 08/07/2022 (Approximate), [...] lower extremity Expected: 08/07/2022 (Approximate), Expires: 08/08/2023 [facility] Comment on above: Expected: 08/07/2022 (Approximate), [...] lower extremity Expected: 08/07/2022 (Approximate), Expires: 08/08/2023 [facility] Comment on above: Expected: 08/07/2022 (Approximate), [...] lower extremity Expected: 08/07/2022 (Approximate), Expires: 08/08/2023 [facility] Comment on above: Expected: 08/07/2022 (Approximate), [...] of lower extremity Expected: 08/07/2022, Expires: 08/08/2023 [facility] Comment on above: Expected: 08/07/2022, Expires: [...] of lower extremity Expected: 08/07/2022, Expires: 08/08/2023 [facility] Comment on above: Expected: 08/07/2022, Expires: Start: 01-22-2022 Urine microalbumin profile DTAP,TDAP,TD (2 - Td or Tdap) [facility] Start: 02-17-2021 ADVANCE DIRECTIVE DISCUSSION ADVANCE DIRECTIVE DISCUSSION [facility] Start: 02-17-2021 DEPRESSION ASSESSMENT DEPRESSION ASSESSMENT [facility] Start: 08-25-2019 Mammography MAMMOGRAM [facility] Start: 08-25-2019 Screening for malignant neoplasm of breast Mammogram Screening [facility] Start: 05-24-2019 Shingrix Vaccine (3 of 3) Shingrix Vaccine (3 of 3) [facility] Start: 05-24-2019 Zoster vaccine hzv live for subcutaneous use ZOSTER (SHINGLES) VACCINE (3 of 3) [facility] Start: 09-08-2017 End: 09-08-2017 Appointment Appointment [employer] Work Phone: Start: 09-03-2017 Screening for malignant neoplasm of colon COLORECTAL CANCER SCREENING DISCUSSION [facility] Start: 02-15-2017 DIABETES SCREEN DIABETES SCREEN [facility] Start: 02-15-2017 Diabetes Screening Diabetes Screening [facility] Start: 09-09-2016 End: 09-09-2016 Appointment Appointment [employer] Work Phone: Start: 09-09-2016 End: 09-09-2016 Follow Up Appt 1 year Follow Up Appt 1 year Nitronex Work Phone: Start: 09-09-2016 End: 09-09-2016 PFM [email or web address] Work Phone: Start: 10-19-2015 Lipid panel Lipid Screening [facility] Start: 10-19-2015 LIPID SCREEN LIPID SCREEN [facility] Start: 09-11-2015 End: 08-27-2016 Follow Up Appt 1 year Follow Up Appt 1 year Nitronex Work Phone: Start: 09-11-2015 End: 08-27-2016 PFM [email or web address] Work Phone: Start: 12-30-2014 Pneumococcal vaccination PNEUMOCOCCAL VACCINE SERIES (2 - PCV) [facility] Start: 2014 PNEUMOCOCCAL: 65+ (1 - PCV) PNEUMOCOCCAL: 65+ (1 - PCV) [facility] Start: 08-24-2014 End: 09-11-2015 Follow Up Appt 1 year Follow Up Appt 1 year [facility] Work Phone: Start: 08-24-2014 End: 09-11-2015 PFM PFM [facility] Work Phone: Start: 08-18-2013 End: 08-18-2013 Follow Up Appt 1 year Follow Up Appt 1 year [facility] Work Phone: Start: 08-18-2013 End: 08-27-2016 Follow Up Appt Other Follow Up Appt Other [facility] Work Phone: Start: 08-18-2013 End: 08-18-2013 PFM PFM [facility] Work Phone: Start: 08-12-2012 End: 08-12-2012 Electrocardiogram, complete EKG (In office) [facility] Work Phone: Start: 08-12-2012 End: 08-12-2012 Follow Up Appt 1 year Follow Up Appt 1 year [facility] Work Phone: Start: 08-12-2012 End: 08-12-2012 PFM PFM [facility] Work Phone: Start: 08-02-2011 End: 08-27-2016 Follow Up Appt 1 year Follow Up Appt 1 year [facility] Work Phone: Start: 08-02-2011 End: 08-27-2016 Follow Up Appt Other Follow Up Appt Other [facility] Work Phone: Start: 2009 RSV VACCINE (1 - 1-dose 60+ series) RSV VACCINE (1 - 1-dose 60+ series) [facility] [facility] Start: 09-29-1999 SHINGRIX VACCINE (1 of 2) SHINGRIX VACCINE (1 of 2) [facility] Start: 1994 COLOGUARD (FIT-DNA) COLOGUARD (FIT-DNA) [facility] Start: [address] COLONOGRAPHY [facility] Start: 1994 FECAL OCCULT BLOOD FECAL OCCULT BLOOD [facility] Start: 1994 Screening for malignant neoplasm of colon [facility] Start: 1994 SIGMOIDOSCOPY SIGMOIDOSCOPY [facility] Start: 1989 Lipid panel LIPID SCREENING [facility] Start: 1989 Screening for malignant neoplasm of breast MAMMOGRAM SCREENING DISCUSSION [facility] Start: 1970 Screening for malignant neoplasm of cervix CERVICAL CANCER SCREENING DISCUSSION [facility] Start: 09-29-1967 Anxiety Screening Anxiety Screening [facility] Start: 09-29-1967 Depression Screening Depression Screening [facility] Start: 09-29-1967 HEPATITIS C SCREENING HEPATITIS C SCREENING [facility] Start: 09-29-1967 Hepatitis C screening Hepatitis C Screening [facility] Start: 1949 Hepatitis C screening HEPATITIS C VIRUS SCREENING [facility] Start: 1949 Screening for osteoporosis DEXA SCAN DISCUSSION [facility] Start: 1949 Thyroid stimulating hormone measurement TSH [facility] Albumin [Moles/volum e] in Serum or Plasma [facility] Albumin/Globulin ratio [facility] Angiotensin converti ng enzyme [Enzymatic activity/volume] in Serum or Plasma [facility] Complement C3 [Mass/volume] in Serum or Plasma [facility] Complement C4 [Mass/volume] in Serum or Plasma [facility] Cyclic citrullinated peptide IgG Ab [Units/volume] in Serum or Plasma [facility] End: 03-27-2025 DBT Breast - bilateral screening PRATIBHA SCREENING W [facility] Radiology Routine Encounter for screening mammogram for malignant neoplasm of breast 1 Occurrences starting 02/26/2024 until 03/27/2025 [facility] Work Phone: Comment on above: 1 Occurrences starting 02/26/2024 until 03/27/2025 Electrophoresis: [id number] [facility] Electrophoresis: aide ma globulin [facility] Globulin measurement [facility] Hematocrit [Volume Fraction] of Blood [facility] HLA-B27 [Presence] b y EZE with probe detection [facility] IgA [Mass/volume] in Serum or Plasma [facility] IgG [Mass/volume] in Serum or Plasma [facility] IgM [Mass/volume] in Serum or Plasma [facility] Laboratory data interpretation [facility] Neutrophil cytoplasm ic Ab.classic [Units/volume] in Serum [facility] P-ANCA measurement [facility] Protein electrophore sis panel - Serum or Plasma [facility] End: 11-12-2024 Screening colonoscopy COLONOSCOPY SCREENING Endoscopy Routine Screen for colon cancer Adenomatous polyp of colon, unspecified part of colon 1 Occurrences starting 11/13/2023 until 11/12/2024 [facility] Work Phone: Comment on above: 1 Occurrences starting 11/13/2023 until 11/12/2024 Serum protein electrophoresis [facility] SURGICAL PATHOLOGY [facility] Work Phone: Comment on above: Release Upon Ordering for 1 Occurrences starting 12/04/2021, 1 completed Tissue transglutamin ase IgA Ab [Units/volume] in Serum [facility] Immunizations Immunization Date Immunization Notes [facility] influenza virus vaccine, unspecified formulation Srini Daley MD Work Phone: [facility] 11-15-2021 influenza virus vaccine, unspecified formulation Caryn Jarvis Jr., DO Work Phone: [facility] 03-29-2019 zoster vaccine, unspecified formulation Caryn Jarvis Jr., DO Work Phone: [facility] 01-23-2012 tetanus toxoid, reduced diphtheria toxoid, and acellular pertussis vaccine, adsorbed Robyn Horvath MD Work Phone: [facility] Work Phone: Payers Date Payer Category Payer Self-pay [id number] 2018 Unknown [id number] 2018 Unknown [id number] 2014 Medicare [id number] 2014 Medicare [id number] 1950 Unknown [id number] 2.16.8 40.1.085228.3.579.2.983 1949 Unknown [id number] 2.16. 840.1.598477.3.579.2.594 1949 Unknown [id number] 2.16.8 40.1.228130.3.579.2.983 1949 Unknown [id number] 2.16.8 40.1.269481.3.579.2.983 Medicare [id number] Unknown [id number] Unknown [id number] 2.16.8 40.1.705560.3.579.2.462 Unknown [id number] 2.16.8 40.1.952005.3.579.2.462 Unknown [id number] 2.16.8 40.1.085910.3.579.2.462 Unknown [id number] 2.16.8 40.1.149375.3.579.2.462 Unknown [id number] 2.16.8 40.1.493082.3.579.2.462 Unknown [id number] 2.16.8 40.1.530222.3.579.2.462 Unknown [id number] 2.16.8 40.1.930344.3.579.2.462 Unknown [id number] 2.16.8 40.1.483173.3.579.2.462 Unknown [id number] 2.16.8 40.1.826947.3.579.2.462 Unknown [id number] 2.16.8 40.1.385188.3.579.2.462 Unknown [id number] 2.16.8 40.1.017001.3.579.2.462 Unknown [id number] 2.16.8 40.1.034848.3.579.2.462 Unknown [id number] 2.16.8 40.1.963613.3.579.2.462 Unknown [id number] 2.16.8 40.1.539871.3.579.2.462 Unknown [id number] 2.16.8 40.1.363611.3.579.2.462 Unknown [id number] 2.16.8 40.1.534758.3.579.2.462 Unknown [id number] 2.16.8 40.1.600563.3.579.2.462 Unknown [id number] 2.16.8 40.1.491150.3.579.2.462 Unknown [id number] 2.16.8 40.1.409596.3.579.2.462 Unknown [id number] 2.16.8 40.1.291617.3.579.2.462 Unknown [id number] 2.16.8 40.1.312688.3.579.2.462 Unknown [id number] 2.16.8 40.1.641294.3.579.2.462 Unknown [id number] 2.16.8 40.1.255950.3.579.2.462 Unknown [id number] 2.16.8 40.1.794699.3.579.2.462 Unknown [id number] 2.16.8 40.1.142920.3.579.2.462 Unknown [id number] 2.16.8 40.1.426333.3.579.2.462 Unknown [id number] 2.16.8 40.1.269355.3.579.2.462 Unknown [id number] 2.16.8 40.1.014516.3.579.2.462 Unknown [id number] 2.16.8 40.1.336623.3.579.2.462 Unknown [id number] 2.16.8 40.1.166554.3.579.2.462 Unknown [id number] 2.16.8 40.1.471411.3.579.2.462 Unknown [id number] 2.16.8 40.1.334002.3.579.2.462 Unknown [id number] 2.16.8 40.1.947254.3.579.2.462 Unknown [id number] 2.16.8 40.1.185430.3.579.2.462 Unknown [id number] 2.16.8 40.1.243766.3.579.2.462 Unknown [id number] 2.16.8 40.1.772884.3.579.2.462 Social History Date Type Detail Facility Start: 10-20-2020 End: 04-23-2023 Tobacco smoking status [facility] Unknown if ever smoked [facility] Start: 1950 Sex Assigned At Female [facility] Start: 12-04-2021 End: 10-13-2023 Tobacco smoking status UTIS Ex-smoker [facility] Start: 11-06-1967 End: 12-12-1975 History of tobacco use Current smoker [facility] Start: 12-04-2021 End: 10-13-2023 Tobacco use and exposure Smokeless tobacco non-user [facility] Start: 12-04-2021 End: 10-13-2023 Alcohol intake Current drinker of alcohol (finding) [facility] Start: 12-04-2021 Tobacco Comment 1976 [facility] Start: 07-01-2016 Alcohol Comment very rare [facility] Start: 1950 Sex Assigned At Not on file [facility] Start: 11-24-2021 End: 12-13-2021 Exposure to SARS-CoV-2 (event) Not sure [facility] Start: 11-06-1967 End: 12-12-1975 History of tobacco use Cigarette Smoker [facility] Start: 08-07-2022 End: 11-13-2023 History of Social function [facility] Start: 08-07-2022 End: 11-13-2023 Tobacco use panel [facility] Start: 09-18-2023 Tobacco Comment Smoked for joi ght control, but found Luis Angel so didn t need it. Quit cold [place]. Praise the Lord!!! [facility] Start: 09-18-2023 Alcohol Comment Only on occass ion. Hot humid day!!! 1 ice cold beer, Social [facility] Start: 10-13-2023 Tobacco Comment Smoked for joi ght control, but found Luis Angel so didn't need it. Quit cold [place]. Praise the Lord!!! [facility] Start: 11-13-2023 End: 03-02-2024 Alcoholic beverage intake Ex-drinker (finding) [facility] National Score (1-10 0), lower number is lower risk 52 [facility] Start: 04-14-2022 Gender identity Identifies as female gender (finding) [facility] Start: 04-14-2022 Sexual orientation Heterosexual (roel mcginnis) [facility] Medical Equipment Procedure Code Equipment Code Equipment Origin al Text Equipment Identifier Dates COCHLEAR IMPLANT [id number] MAGNET IN COMB. WITH [id number] IMPLANT FDA Start: 02-23-2016 COCHLEAR IMPLANT [id number] MAGNET IN COMB. WITH BI300 IMPLANT FDA Start: 02-23-2016 COCHLEAR IMPLANT [id number] MAGNET IN COMB. WITH BI300 IMPLANT FDA Start: 02-23-2016 COCHLEAR IMPLANT [id number] MAGNET IN COMB. WITH [id number] IMPLANT FDA Start: 02-23-2016 COCHLEAR IMPLANT [id number] MAGNET IN COMB. WITH [id number] IMPLANT FDA Start: 02-23-2016 COCHLEAR IMPLANT [id number] MAGNET IN COMB. WITH [id number] IMPLANT FDA Start: 02-23-2016 COCHLEAR IMPLANT [id number] MAGNET IN COMB. WITH BI300 IMPLANT FDA Start: 02-23-2016 COCHLEAR IMPLANT [id number] MAGNET IN COMB. WITH BI300 IMPLANT FDA Start: 02-23-2016 COCHLEAR IMPLANT [id number] MAGNET IN COMB. WITH BI300 IMPLANT FDA Start: 02-23-2016 COCHLEAR IMPLANT [id number] MAGNET IN COMB. WITH [id number] IMPLANT FDA Start: 02-23-2016 COCHLEAR IMPLANT [id number] MAGNET IN COMB. WITH BI300 IMPLANT FDA Start: 02-23-2016 COCHLEAR IMPLANT [id number] MAGNET IN COMB. WITH [id number] IMPLANT FDA Start: 02-23-2016 COCHLEAR IMPLANT [id number] MAGNET IN COMB. WITH BI300 IMPLANT FDA Start: 02-23-2016 COCHLEAR IMPLANT [id number] MAGNET IN COMB. WITH BI300 IMPLANT FDA Start: 02-23-2016 COCHLEAR IMPLANT [id number] MAGNET IN COMB. WITH BI300 IMPLANT FDA Start: 02-23-2016 COCHLEAR IMPLANT [id number] MAGNET IN COMB. WITH BI300 IMPLANT FDA Start: 02-23-2016 COCHLEAR IMPLANT [id number] MAGNET IN COMB. WITH BI300 IMPLANT FDA Start: 02-23-2016 COCHLEAR IMPLANT [id number] MAGNET IN COMB. WITH BI300 IMPLANT FDA Start: 02-23-2016 Clinical Notes 12-04-2021 to 03-31-2024 Telephone Encounter - Pablo Mccormick RN - 03/03/2024 2:07 PM ESTTelephone Encounter - Pablo Mccormick RN - 03/03/2024 2:07 PM ESTTelephone Encounter - Demarco Vogel MD - 03/03/2024 1:33 PM EST Note Date & Type Note Facility 03-31-2024 Note [facility] Medical Records Department [address] [place] [id number] History Physical Exam 03/31/24 1030 MR#: [id number] Acct: [id number] Name: AYESHA CASTREJON Rep #: [id number] : 1950 73 From: Nirmal Head MD PCP: Dr. Malvin Douglas MD [facility] Location: [place] [address] HPI - General HPI Narrative AYESHA CASTREJON, is a 73 F who presents for right shoulder arthroscopy subacromial decompression rotator cuff repair. No changes to history and physical exam. Risks alternatives benefits as well as postoperative instructions and narcotic counseling given. Patient daughter here from [place]. Right shoulder marked they understood no further questions or concerns okay to proceed with surgery. MR#: [id number] Acct: [id number] Name: AYESHA CASTREJON Rep #: [id number] : 1950 Provider: Dr. Nirmal Head MD Age/Sex: 73/F Location: [facility] Status: Signed Intake Vital Signs 12/11/2410:28 Height 5 ft 1.5 in Intake Visit Reasons: RIGHT SHOULDER Chief Complaint: Right Shoulder Follow-Up Is patient in pain?: Yes (right shoulder) Pain scale (1-10): 5 Allergies pseudoephedrine Allergy (Verified 02/13/24 10:44) Rapid Heart rate Medications ???Medication ???Instructions ???Recorded ???Confirmed ???Type levothyroxine 50 mcg tablet 50 mcg PO DAILY 10/03/13 02/13/24 History vitamins B1 B6 B12 tablet 1 tab PO DAILY 10/20/20 02/13/24 History Prolia 60 mg/mL subcutaneous 60 mg subcut [id number] #1 mL 09/17/21 02/13/24 Rx syringe (denosumab) cholecalciferol (vitamin D3) 25 4,000 unit PO DAILY 04/03/22 02/13/24 History mcg (1,000 unit) tablet ipratropium bromide 42 mcg (0.06 2 spray intranasal .q8 04/03/22 02/13/24 History %) nasal spray omeprazole 40 mg capsule,delayed 40 mg PO DAILY 04/03/22 02/13/24 History release gabapentin 100 mg capsule 200 mg PO QHS 04/23/23 02/13/24 History ropinirole 1 mg tablet 1 mg PO QHS #30 tabs 09/01/23 02/13/24 Rx celecoxib 200 mg capsule 200 mg PO DAILY 09/15/23 02/13/24 History terbinafine HCl 250 mg tablet 250 mg PO DAILY 09/15/23 02/13/24 History citalopram 10 mg tablet 10 mg PO QDAY 02/13/24 02/13/24 History Have you fallen in the past year?: No PFSH Medical History Arthrosis of right acromioclavicular joint Right rotator cuff tear Impingement of right shoulder Right shoulder pain Laceration of right ring finger Osteoporosis Brain tumor Pericardial effusion Hypothyroidism GERD (gastroesophageal reflux disease) RLS (restless legs syndrome) Malignant neoplasm of colon Malignant neoplasm of kidney DDD (degenerative disc disease) Hyperlipidemia Premature ventricular contraction Premature atrial contractions Surgical History Hx of basal cell carcinoma excision History of eyelid surgery History of cochlear implant History of vein stripping History of shoulder surgery History of tubal ligation History of hysterectomy History of tonsillectomy Family History Father CAD (coronary artery disease) Hx of CABGMother History of permanent cardiac pacemaker placement Social History Smoking Status: Never smoker alcohol intake: current details: occasional HPI RIGHT SHOULDER Details: This documentation accurately reflects the service provided and the decisions made by me, Dr. Nirmal Head MD 02/13/24 1013. Part of today???s visit was documented by [ ], acting as scribe. AYESHA CASTREJON is a 73 year old F here today for follow-up right shoulder pain and rotator cuff tear. Coding Level of Care Code Off vis,est,level 3 Diagnoses Arthrosis of right acromioclavicular joint M19.011 Right rotator cuff tear M75.101 Impingement of right shoulder M25.811 Right shoulder pain M25.511 Assessment and Plan Assessment and Plan (1) Arthrosis of right acromioclavicular joint: Status: Acute Plan: 73 F with R shoulder MRI evidence of linear interstitial/delaminating tear of the conjoined distal supraspinatus/infraspinatus tendon junction, measuring 1.7 cm in length. Also has mild hypertrophic acromioclavicular arthrosis (neg cross body and no pain at ACJ so will not do DCE), and mild subacromial-subdeltoid bursitis. Patient counseled on the diagnosis prognosis different treatment options available including but not limited to rest ice anti-inflammatories activity modifications doing nothing repeat cortisone injection as well as surgery including right shoulder arthroscopy subacromial de (more content not included)... [facility] 03-03-2024 Telephone encounter Note Pt notified and voiced understanding. Pablo Mccormick RN [facility] 03-03-2024 Miscellaneous Notes Pt notified and voiced understanding. Pablo Mccormick RN yes, will send rx, if not helpful would talk w/ Dr. Mullen again. Demarco Vogel MD Pt notified. Pt asking about what your thoughts are on medication for overactive bladder as she is open to that. Pt is not certain she is ready to do surgery at this point. (When calling Pt back, may leave a message if unable to reach her). I am sorry that this didn't work out. If that one shifted to vertical, a larger one will not work and a smaller one will likely fall out. Unfortunately, I am not sure a pessary will work well for her unless we consider one that suctions in and that will be more uncomfortable to remove and have to be removed in the office. THe bleeding is from the trauma from removal and I am sorry about that. She can soak in some plain warm water if she is sore or use cool pack to her perineal are prn. At this point if would like further eval or discuss surger would refer to [facility] urogyn. Demarco Vogel MD Patient seen in office yesterday for a pessary fitting. States that her pessary moved last night and she tried to reposition it. The pessary was vertical and she was unable to push it back in place. Took her 3 tries to remove it. After removal she had quite a bit of bleeding. No bleeding now. Feels irritated with some burning when she urinates. Please advise. Nayana Wiggins, RN documented in this encounter [facility] 03-03-2024 Telephone encounter Note yes, will send rx, if not helpful would talk w/ Dr. Mullen again. Demarco Vogel MD [facility] 03-03-2024 Telephone encounter Note Pt notified. Pt asking about what your thoughts are on medication for overactive bladder as she is open to that. Pt is not certain she is ready to do surgery at this point. (When calling Pt back, may leave a message if unable to reach her). [facility] 03-03-2024 Telephone encounter Note I am sorry that this didn't work out. If that one shifted to vertical, a larger one will not work and a smaller one will likely fall out. Unfortunately, I am not sure a pessary will work well for her unless we consider one that suctions in and that will be more uncomfortable to remove and have to be removed in the office. THe bleeding is from the trauma from removal and I am sorry about that. She can soak in some plain warm water if she is sore or use cool pack to her perineal are prn. At this point if would like further eval or discuss surger would refer to [facility] urogyn. Demarco Vogel MD [facility] 03-03-2024 Telephone encounter Note Patient seen in office yesterday for a pessary fitting. States that her pessary moved last night and she tried to reposition it. The pessary was vertical and she was unable to push it back in place. Took her 3 tries to remove it. After removal she had quite a bit of bleeding. No bleeding now. Feels irritated with some burning when she urinates. Please advise. Nayana Wiggins, DILLAN [facility] 03-02-2024 Note HNO ID: [id number] Author: DEMARCO VOGEL MD Service: ? Author Type: Physician Type: Progress Notes Filed: 03/03/2024 17:02 Note Text: 73 year old female presents for a pessary fitting due to prolapse. She has not had vaginal discharge and bleeding. She does not use her prescribed estrogen cream. Exam: Cysto and Recto. No bleeding or vaginal irritation seen. Pelvic: A size 2 ring with support was placed without difficulty. Have also tried a size 3 ring with support - was too large Impression/plan:cystocele 1) Advised of need to remove it if has diffulties emptying her bladder/bowel. Patient advised to remove and clean with warm water and soap every week. Will return to clinic in 4-6 weeks for f/u evaluation. Discussed pros/cons pessary. Demarco Vogel MD [facility] 03-02-2024 History of Presen t illness Narrative 73 year old female presents for a pessary fitting due to prolapse. She has not had vaginal discharge and bleeding. She does not use her prescribed estrogen cream. Exam: Cysto and Recto. No bleeding or vaginal irritation seen. Pelvic: A size 2 ring with support was placed without difficulty. Have also tried a size 3 ring with support - was too large Impression/plan:cystocele 1) Advised of need to remove it if has diffulties emptying her bladder/bowel. Patient advised to remove and clean with warm water and soap every week. Will return to clinic in 4-6 weeks for f/u evaluation. Discussed pros/cons pessary. Demarco Vogel MD documented in this encounter [facility] 02-26-2024 Note HNO ID: [id number] Author: DEMARCO VOGEL MD Service: ? Author Type: Physician Type: Progress Notes Filed: 02/26/2024 10:23 Note Text: Ayesha is a 73 year old who presents for an annual gynecologic exam without complaints. Postmenopausal: yes never on hormones other than vaginal estrogen. S/p hysterectomy for fibroids, benign. Ovaries remain> No vaginal bleeding. Not currently sexually active OB History T0 L2 SAB0 IAB0 Ectopic0 Multiple0 Live Births0 Comment: 2 vaginal deliveries [facility] History LMP: Hysterectomy Age at Menarche: Age at First : Age at Menopause: [facility] History Comments: Sexual Activity: Not Currently; Male; hysterectomy-fibroids Contraception: Surgical PAST MEDICAL HISTORY Diagnosis Date Arrhythmia Arthritis [...] - family history 5 year follow up COLONOSCOPY SCREENING 11/2023 DILATION AND CURETTAGE DXAND/THER NONOBSTETRIC Dilation AND [...] SKIN BIOPSY HX TONSILLECTOMY HX TONSILLECTOMY PRIMARY/SECONDARY Tonsillectomy TOTAL ABDOMINAL HYSTERECT W/WO RMVL TUBE OVARY 1985 Hysterectomy, YELENA- fibroids VASCULAR SURGERY PROCEDURE FAMILY HISTORY Problem Relation Age of Onset Cancer Mother thyroid, renal cell cancer, brain cancer Colon Cancer Father colon COPD Sister other (Rheumatoid arthtrisits) Sister Blood Clots Sister COPD Sister other (rheumatoid arthritis) Sister other (polyps) Brother colon polyps No Known Problems Maternal Grandmother No Known Problems Maternal Grandfather No Known Problems Paternal Grandmother Tuberculosis Paternal Grandfather SOCIAL HISTORY Social History Tobacco Use Smoking status: Former Smokeless tobacco: Never Tobacco comments: 1976 Vaping Use Vaping status: Never Used Substance Use Topics Alcohol use: Not Currently Comment: very rare Drug use: No REVIEW OF SYSTEMS Abdomen: IBS Bladder: No dysuria, gross hematuria, urinary frequency, urinary urgency, or incontinence SENSITIVE EXAM: The sensitive examination was discussed with the Patient or Patient's Authorized Tape Recorder Repairer. As applicable, any other physician, advance practice provider, medical student, or other health professional student that will be observing or involved in the sensitive examination for educational or training purposes was discussed with the Patient or Authorized Tape Recorder Repairer. The Patient or Authorized Tape Recorder Repairer has agreed to proceed with the sensitive examination. (Sensitive examination includes inspection and/or palpation of the breasts, pelvis, prostate and anorectal regions). EXAM: BP 124/78 Ht 5' 0 (1.52m) Wt 120 lb (54.4kg) BMI 23.44 kg/(m2). GENERAL: pleasant, female in no apparent distress HEENT: Normocephalic, atraumatic, mucus membranes moist, and no lesions BREAST: soft, non-tender, symmetric, no dominant mass, normal nipple-areolar complex, no lymphadenopathy, and no nipple discharge CHEST: Normal inspiratory effort ABDOMEN: soft, non-tender, and no masses PELVIC: external genitalia normal, normal Bartholin's glands, urethra, [place]'s glands, no vulvar lesions, mild cystocele and rectocele, physiologic discharge present, normal appearing perineal body and perianal region, cervix surgically absent, atrophic flattened epithelium BIMANUAL: no adnexal masses, non-tender, and uterus surgically absent ASSESSMENT/PLAN: 1) Health maintenance: Pap/HPV screening no longer needed Mammogram up to date colonoscopy up to date some urinary frequency, sometimes feels like she doesn't empty> Saw Dr. Mullen in past, tried pelvic floor PT. DIdn't help much. No trial of pessary. Offered return to urogyn or return for t (more content not included)... [facility] 02-26-2024 History of Presen t illness Narrative Ayesha is a 73 year old who presents for an annual gynecologic exam without complaints. Postmenopausal: yes never on hormones other than vaginal estrogen. S/p hysterectomy for fibroids, benign. Ovaries remain> No vaginal bleeding. Not currently sexually active OB History T0 L2 SAB0 IAB0 Ectopic0 Multiple0 Live Births0 Comment: 2 vaginal deliveries [facility] History LMP: Hysterectomy Age at Menarche: Age at First : Age at Menopause: [facility] History Comments: Sexual Activity: Not Currently; Male; hysterectomy-fibroids Contraception: Surgical PAST MEDICAL HISTORY Diagnosis Date Arrhythmia Arthritis [...] - family history 5 year follow up COLONOSCOPY SCREENING 11/2023 DILATION & CURETTAGE DX&/THER NONOBSTETRIC Dilation & [...] TOTAL ABDOMINAL HYSTERECT W/WO RMVL TUBE OVARY 1984 Hysterectomy, YELENA- fibroids VASCULAR SURGERY PROCEDURE FAMILY HISTORY Problem Relation Age of Onset Cancer Mother thyroid, renal cell cancer, brain cancer Colon Cancer Father colon COPD Sister other (Rheumatoid arthtrisits) Sister Blood Clots Sister COPD Sister other (rheumatoid arthritis) Sister other (polyps) Brother colon polyps No Known Problems Maternal Grandmother No Known Problems Maternal Grandfather No Known Problems Paternal Grandmother Tuberculosis Paternal Grandfather SOCIAL HISTORY Social History Tobacco Use Smoking status: Former Smokeless tobacco: Never Tobacco comments: 1976 Vaping Use Vaping status: Never Used Substance Use Topics Alcohol use: Not Currently Comment: very rare Drug use: No REVIEW OF SYSTEMS Abdomen: IBS Bladder: No dysuria, gross hematuria, urinary frequency, urinary urgency, or incontinence SENSITIVE EXAM: The sensitive examination was discussed with the Patient or Patient's Authorized Tape Recorder Repairer. As applicable, any other physician, advance practice provider, medical student, or other health professional student that will be observing or involved in the sensitive examination for educational or training purposes was discussed with the Patient or Authorized Tape Recorder Repairer. The Patient or Authorized Tape Recorder Repairer has agreed to proceed with the sensitive examination. (Sensitive examination includes inspection and/or palpation of the breasts, pelvis, prostate and anorectal regions). EXAM: BP 124/78 Ht 5' 0 (1.52m) Wt 120 lb (54.4kg) BMI 23.44 kg/(m^2). GENERAL: pleasant, female in no apparent distress HEENT: Normocephalic, atraumatic, mucus membranes moist, and no lesions BREAST: soft, non-tender, symmetric, no dominant mass, normal nipple-areolar complex, no lymphadenopathy, and no nipple discharge CHEST: Normal inspiratory effort ABDOMEN: soft, non-tender, and no masses PELVIC: external genitalia normal, normal Bartholin's glands, urethra, [place]'s glands, no vulvar lesions, mild cystocele and rectocele, physiologic discharge present, normal appearing perineal body and perianal region, cervix surgically absent, atrophic flattened epithelium BIMANUAL: no adnexal masses, non-tender, and uterus surgically absent ASSESSMENT/PLAN: 1) Health maintenance: Pap/HPV screening no longer needed Mammogram up to date colonoscopy up to date some urinary frequency, sometimes feels like she doesn't empty> Saw Dr. Mullen in past, tried pelvic floor PT. DIdn't help much. No trial of pessary. Offered return to urogyn or return for trial of med for OAB but would do PVR first. 2) Follow up one year or sooner as needed Demarco Vogel MD documented in this encounter [facility] 12-24-2023 Note Formatting of this n ote might be different from the original. The patient received a copy of Colonoscopy discharge instructions that contain information for how to contact the physician who performed the procedure and when to seek medical care. [facility] 12-24-2023 Miscellaneous Notes The patient received a copy of Colonoscopy discharge instructions that contain information for how to contact the physician who performed the procedure and when to seek medical care. documented in this encounter [facility] 12-24-2023 Note HNO ID: [id number] Author: JANE SURESH RN Service: ? Author Type: Registered Nurse Type: Nursing Progress Note Filed: 12/24/2023 09:01 Note Text: Dr Horvath at bedside to review procedure with patient and spouse. [facility] 12-24-[address] Horvath at bedside to review procedure with patient and spouse. [facility] 12-24-[address] Horvath at bedside to review procedure with patient and spouse. Patient received in phase II via cart in left lateral position, eyes open, alert to self, event and place, skin warm and dry, respirations regular and unlabored, abdomen soft and non distended. Denies pain or nausea. Resting comfortably on left side, brought to bedside. documented in this encounter [facility] 12-24-2023 Nurse Note Patient received in phase II via cart in left lateral position, eyes open, alert to self, event and place, skin warm and dry, respirations regular and unlabored, abdomen soft and non distended. Denies pain or nausea. Resting comfortably on left side, brought to bedside. [facility] 12-24-2023 History and physical note HISTORY AND PHYSICAL Ayesha Castrejon : 1950 REFERRING PHYSICIAN: Robyn Horvath [address] [facility] [address] CHIEF COMPLAINT: Patient presents with: Consult HPI: [...] prior endoscopy. Last colonoscopy 11/[address] Horvath at [facility]. Sedation received: Midazolam 5 mg IV, Fentanyl 100 micrograms IV Impression: - One small polyp in the proximal descending colon, removed with a cold biopsy forceps. Resected and retrieved. - One 7 mm polyp in the proximal rectum, removed piecemeal using a cold snare. Resected and retrieved. Clips (MR conditional) were placed. Clip mixing machine tender: Ozmott. - The examination was otherwise normal on direct and retroflexion views. - Diverticulosis in the sigmoid colon. PATHOLOGY FINAL DIAGNOSIS A. Descending colon polyp, biopsy: - Tubular adenoma. B. Rectal polyp, biopsy: - Tubular adenoma. JEL 12/05/2021 CURRENT MEDICATIONS Current Outpatient Medications Medication Sig celecoxib (CELEBREX) [...] daily as needed. May take two capsules fcmhszjebt-qrnmnzs-redlqulqhfc (FOLINIC-PLUS) 4-50-2 mg tab Take 1 tablet [...] (FLONASE) 50 mcg/actuation nasal spray Use 1 [place] in each nostril as needed. 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 PAST SURGICAL HISTORY PAST SURGICAL HISTORY Procedure Laterality Date ABDOMINAL [...] SKIN BIOPSY HX TONSILLECTOMY HX TONSILLECTOMY PRIMARY/SECONDARY Tonsillectomy TOTAL ABDOMINAL HYSTERECT W/WO RMVL TUBE OVARY Hysterectomy, YELENA VAGINAL HYSTERECTOMY VASCULAR SURGERY PROCEDURE FAMILY HISTORY FAMILY HISTORY Problem Relation Age of Onset Cancer Mother thyroid, renal cell cancer, brain cancer Cancer Father colon COPD Sister other (Rheumatoid arthtrisits) Sister Blood Clots Sister other (polyps) Brother colon polyps No Known Problems Maternal Grandmother No Known Problems Maternal Grandfather No Known Problems Paternal Grandmother Tuberculosis Paternal Grandfather SOCIAL HISTORY Social History Tobacco Use Smoking status: Former Smokeless tobacco: Never Tobacco comments: 1975 Vaping Use Vaping status: Never Used Substance Use Topics Alcohol use: Not Currently Comment: very rare Drug use: No REVIEW OF SYMPTOMS: The review of systems data was entered by the nurse and reviewed by ct Nursing Notes: Jeanne Pugh LPN 11/13/2023 11:19 [...] and edited and updated as necessary. Maren Herrmann APRN.AVIONICS SYSTEMS REPAIRER [facility] 12-24-2023 History and physical note HISTORY AND PHYSICAL Ayesha Castrejon : 1950 REFERRING PHYSICIAN: Robyn Horvath [address] [facility] [address] CHIEF COMPLAINT: Patient presents with: Consult HPI: [...] prior endoscopy. Last colonoscopy 11/[address] Horvath at [facility]. Sedation received: Midazolam 5 mg IV, Fentanyl 100 micrograms IV Impression: - One small polyp in the proximal descending colon, removed with a cold biopsy forceps. Resected and retrieved. - One 7 mm polyp in the proximal rectum, removed piecemeal using a cold snare. Resected and retrieved. Clips (MR conditional) were placed. Clip mixing machine tender: Ozmott. - The examination was otherwise normal on direct and retroflexion views. - Diverticulosis in the sigmoid colon. PATHOLOGY FINAL DIAGNOSIS A. Descending colon polyp, biopsy: - Tubular adenoma. B. Rectal polyp, biopsy: - Tubular adenoma. JEL 12/05/2021 CURRENT MEDICATIONS Current Outpatient Medications Medication Sig celecoxib (CELEBREX) [...] daily as needed. May take two capsules obaphbqbgm-zkfjrnc-aleitktmxfh (FOLINIC-PLUS) 4-50-2 mg tab Take 1 tablet [...] (FLONASE) 50 mcg/actuation nasal spray Use 1 [place] in each nostril as needed. 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 PAST SURGICAL HISTORY PAST SURGICAL HISTORY Procedure Laterality Date ABDOMINAL [...] VAGINAL HYSTERECTOMY VASCULAR SURGERY PROCEDURE FAMILY HISTORY FAMILY HISTORY Problem Relation Age of Onset Cancer Mother thyroid, renal cell cancer, brain cancer Cancer Father colon COPD Sister other (Rheumatoid arthtrisits) Sister Blood Clots Sister other (polyps) Brother colon polyps No Known Problems Maternal Grandmother No Known Problems Maternal Grandfather No Known Problems Paternal Grandmother Tuberculosis Paternal Grandfather SOCIAL HISTORY Social History Tobacco Use Smoking status: Former Smokeless tobacco: Never Tobacco comments: 1976 Vaping Use Vaping status: Never Used Substance Use Topics Alcohol use: Not Currently Comment: very rare Drug use: No REVIEW OF SYMPTOMS: The review of systems data was entered by the nurse and reviewed by ct Nursing Notes: Jeanne Pugh LPN 11/13/2023 11:19 [...] and edited and updated as necessary. Maren Herrmann, SOC ANALYST.AVIONICS SYSTEMS REPAIRER UPDATED PROCEDURAL SEDATION HISTORY AND PHYSICAL EXAMINATION SERVICE DATE: 12/24/2023 SERVICE TIME: 8:18 AM PHYSICAL EXAM MUST BE COMPLETED ON ADMISSION PROCEDURE: Procedure Indications: The History and Physical (completed in the past 30 days) has been reviewed and the patient has been examined. The contents accurately reflect the patient's condition with the following additions or revisions since the H&P was completed. ASA Class: ASA Class: Patient with mild systemic disease Examination indicates no changes. AIRWAY: Airway Visualization of Uvula: Yes Mouth opening greater than 2 fingerbreadths: Yes Neck Full Range of Motion: Yes LUNGS: Lungs clear to auscultation CARDIAC: Regular rhythm,Regular rate Provisional Diagnosis/Treatment Plan: personal history of colon polyps - colonoscopy Sedation Goal: Moderate This H&P can be found in the attached. SIGNATURE: Robyn Horvath MD PATIENT NAME: Ayesha Castrejon DATE: December 24, 2023 TIME: 8:18 AM Source Note - Robyn Horvath MD - 12/24/2023 8:45 AM EST HISTORY AND PHYSICAL Ayesha Castrejon : 1950 REFERRING PHYSICIAN: Robyn Horvath [address] [facility] [id number] CHIEF COMPLAINT: Patient presents with: Consult HPI: [...] prior endoscopy. Last colonoscopy 11/[address] Horvath at [facility]. Sedation received: Midazolam 5 mg IV, Fentanyl 100 micrograms IV Impression: - One small polyp in the proximal descending colon, removed with a cold biopsy forceps. Resected and retrieved. - One 7 mm polyp in the proximal rectum, removed piecemeal using a cold snare. Resected and retrieved. Clips (MR conditional) were placed. Clip mixing machine tender: Ozmott. - The examination was otherwise normal on direct and retroflexion views. - Diverticulosis in the sigmoid colon. PATHOLOGY FINAL DIAGNOSIS A. Descending colon polyp, biopsy: - Tubular adenoma. B. Rectal polyp, biopsy: - Tubular adenoma. JEL 12/05/2021 CURRENT MEDICATIONS Current Outpatient Medications Medication Sig celecoxib (CELEBREX) [...] daily as needed. May take two capsules cbpdsftazg-ovdaodi-nezkmzwqozp (FOLINIC-PLUS) 4-50-2 mg tab Take 1 tablet [...] (FLONASE) 50 mcg/actuation nasal spray Use 1 [place] in each nostril as needed. 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 PAST SURGICAL HISTORY PAST SURGICAL HISTORY Procedure Laterality Date ABDOMINAL [...] VAGINAL HYSTERECTOMY VASCULAR SURGERY PROCEDURE FAMILY HISTORY FAMILY HISTORY Problem Relation Age of Onset Cancer Mother thyroid, renal cell cancer, brain cancer Cancer Father colon COPD Sister other (Rheumatoid arthtrisits) Sister Blood Clots Sister other (polyps) Brother colon polyps No Known Problems Maternal Grandmother No Known Problems Maternal Grandfather No Known Problems Paternal Grandmother Tuberculosis Paternal Grandfather SOCIAL HISTORY Social History Tobacco Use Smoking status: Former Smokeless tobacco: Never Tobacco comments: 1976 Vaping Use Vaping status: Never Used Substance Use Topics Alcohol use: Not Currently Comment: very rare Drug use: No REVIEW OF SYMPTOMS: The review of systems data was entered by the nurse and reviewed by me Nursing Notes: Jeanne Pugh LPN 11/13/2023 11:19 [...] and edited and updated as necessary. Maren Herrmann APRN.AVIONICS SYSTEMS REPAIRER documented in this encounter [facility] 12-24-2023 Attending History and physical note UPDATED PROCEDURAL SEDATION HISTORY AND PHYSICAL EXAMINATION SERVICE DATE: 12/24/2023 SERVICE TIME: 8:18 AM PHYSICAL EXAM MUST BE COMPLETED ON ADMISSION PROCEDURE: Procedure Indications: The History and Physical (completed in the past 30 days) has been reviewed and the patient has been examined. The contents accurately reflect the patient's condition with the following additions or revisions since the H&P was completed. ASA Class: ASA Class: Patient with mild systemic disease Examination indicates no changes. AIRWAY: Airway Visualization of Uvula: Yes Mouth opening greater than 2 fingerbreadths: Yes Neck Full Range of Motion: Yes LUNGS: Lungs clear to auscultation CARDIAC: Regular rhythm,Regular rate Provisional Diagnosis/Treatment Plan: personal history of colon polyps - colonoscopy Sedation Goal: Moderate This H&P can be found in the attached. SIGNATURE: Robyn Horvath MD PATIENT NAME: Ayesha Castrejon DATE: December 24, 2023 TIME: 8:18 AM Source Note - Robyn Horvath MD - 12/24/2023 8:45 AM EST HISTORY AND PHYSICAL Ayesha Castrejon : 1950 REFERRING PHYSICIAN: Robyn Horvath [address] [facility] [address] CHIEF COMPLAINT: Patient presents with: Consult HPI: [...] prior endoscopy. Last colonoscopy 11/[address] Horvath at [facility]. Sedation received: Midazolam 5 mg IV, Fentanyl 100 micrograms IV Impression: - One small polyp in the proximal descending colon, removed with a cold biopsy forceps. Resected and retrieved. - One 7 mm polyp in the proximal rectum, removed piecemeal using a cold snare. Resected and retrieved. Clips (MR conditional) were placed. Clip mixing machine tender: Ozmott. - The examination was otherwise normal on direct and retroflexion views. - Diverticulosis in the sigmoid colon. PATHOLOGY FINAL DIAGNOSIS A. Descending colon polyp, biopsy: - Tubular adenoma. B. Rectal polyp, biopsy: - Tubular adenoma. JEL 12/05/2021 CURRENT MEDICATIONS Current Outpatient Medications Medication Sig celecoxib (CELEBREX) [...] daily as needed. May take two capsules xamtdtivkd-gsezfhv-xmqlksezfsj (FOLINIC-PLUS) 4-50-2 mg tab Take 1 tablet [...] (FLONASE) 50 mcg/actuation nasal spray Use 1 [place] in each nostril as needed. 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 PAST SURGICAL HISTORY PAST SURGICAL HISTORY Procedure Laterality Date ABDOMINAL [...] SKIN BIOPSY HX TONSILLECTOMY HX TONSILLECTOMY PRIMARY/SECONDARY Tonsillectomy TOTAL ABDOMINAL HYSTERECT W/WO RMVL TUBE OVARY Hysterectomy, YELENA VAGINAL HYSTERECTOMY VASCULAR SURGERY PROCEDURE FAMILY HISTORY FAMILY HISTORY Problem Relation Age of Onset Cancer Mother thyroid, renal cell cancer, brain cancer Cancer Father colon COPD Sister other (Rheumatoid arthtrisits) Sister Blood Clots Sister other (polyps) Brother colon polyps No Known Problems Maternal Grandmother No Known Problems Maternal Grandfather No Known Problems Paternal Grandmother Tuberculosis Paternal Grandfather SOCIAL HISTORY Social History Tobacco Use Smoking status: Former Smokeless tobacco: Never Tobacco comments: 1976 Vaping Use Vaping status: Never Used Substance Use Topics Alcohol use: Not Currently Comment: very rare Drug use: No REVIEW OF SYMPTOMS: The review of systems data was entered by the nurse and reviewed by me Nursing Notes: Jeanne Pugh LPN 11/13/2023 11:19 [...] and edited and updated as necessary. Maren Herrmann APRN.AVIONICS SYSTEMS REPAIRER [facility] 11-13-2023 Nurse Note This Nurse reviewed and provided patient with copy of written instructions. The patient verbalized understanding and was given a number for questions. Jeanne Pugh LPN [facility] 11-13-2023 Nurse Note This Nurse reviewed and [...] Jeanne Pugh LPN documented in this encounter [facility] 11-13-2023 Nurse Note REVIEW OF SYSTEMS: General: [...] patient Last Colonoscopy: 12/04/2021 Jeanne Pugh LPN [facility] 11-13-2023 History of Presen t illness Narrative HISTORY AND PHYSICAL Ayeshaconstance Castrejon : 1950 REFERRING PHYSICIAN: Robyn Chambers[address] [facility] [id number] CHIEF COMPLAINT: Patient presents with: Consult HPI: [...] prior endoscopy. Last colonoscopy 11/[address] Horvath at [facility]. Sedation received: Midazolam 5 mg IV, Fentanyl 100 micrograms IV Impression: - One small polyp in the proximal descending colon, removed with a cold biopsy forceps. Resected and retrieved. - One 7 mm polyp in the proximal rectum, removed piecemeal using a cold snare. Resected and retrieved. Clips (MR conditional) were placed. Clip mixing machine tender: Ozmott. - The examination was otherwise normal on [...] daily as needed. May take two capsules efysxcoqta-mykptol-soetxahksjq (FOLINIC-PLUS) 4-50-2 mg tab Take 1 tablet [...] (FLONASE) 50 mcg/actuation nasal spray Use 1 [place] in each nostril as needed. TURMERIC ORAL [...] status: Former Smokeless tobacco: Never Tobacco comments: 1976 Vaping Use Vaping status: Never Used Substance Use Topics Alcohol use: Not Currently Comment: very rare Drug use: No REVIEW OF SYMPTOMS: The review of systems data was entered by the nurse and reviewed by ct Nursing Notes: Jeanne Pugh LPN 11/13/2023 11:19 [...] and edited and updated as necessary. Maren Herrmann APRN.CNP documented in this encounter [facility] 11-13-2023 Note HNO ID: [id number] Author: MAREN HERRMANN APRN.CNP Service: ? Author Type: Nurse Practitioner Type: Progress Notes Filed: 11/13/2023 11:31 Note Text: HISTORY AND PHYSICAL Ayesha Castrejon : 1950 REFERRING PHYSICIAN: Robyn Horvath [address] [facility] [address] CHIEF COMPLAINT: Patient presents with: Consult HPI: [...] prior endoscopy. Last colonoscopy 11/[address] Horvath at [facility]. Sedation received: Midazolam 5 mg IV, Fentanyl 100 micrograms IV Impression: - One small polyp in the proximal descending colon, removed with a cold biopsy forceps. Resected and retrieved. - One 7 mm polyp in the proximal rectum, removed piecemeal using a cold snare. Resected and retrieved. Clips (MR conditional) were placed. Clip mixing machine tender: Ozmott. - The examination was otherwise normal on [...] daily as needed. May take two capsules diygxzfacx-eflkzdt-wfcduvjlxbx (FOLINIC-PLUS) 4-50-2 mg tab Take 1 tablet [...] (FLONASE) 50 mcg/actuation nasal spray Use 1 [place] in each nostril as needed. TURMERIC ORAL [...] PAST SURGICAL HISTORY OF 11/27/2010 Arthritis repair (more content not included)... [facility] 10-13-2023 History of Presen t illness Narrative Subjective History of Present Illness [...] present. Gait: Gait is intact. Comments: Decreased station cook strength both hand L > R Neurological Exam Mental Status Alert. Oriented to person, place, and time. Cranial Nerves CN II: Vision test: Glasses Dry eyes. CN III, IV, : Extraocular movements intact bilaterally. Pupils equal round and reactive to light bilaterally. Gait Normal gait. Decreased station cook strength both hand L > R. Assessment [...] arthritis History of fibromyalgia History of osteoporosis M[facility] current use of non-steroidal anti-inflammatories (NSAID) Long-term [...] 26. Negative SSA., SSB, Chromcatin, Michelle-1, Scleroderma, CORPORATE VP ADVERTISING & ONLINE, Leal, Centromere, ANCA, HLA-B27, Celiac, CCP, Lyme, [...] to your care. documented in this encounter [facility] 09-18-2023 History of Presen t illness Narrative Images from the original note [...] scans included Lab work being done in [place] Last edited by Cordelia Raza on 09/18/2023 [...] Normal Additional Tests Stereo Fly: + Animals: 3 Circles: 09/25 Strabismus Exam Method: APCT Fixing [...] 0.35 0.3 Refraction Wearing Rx Sphere Cylinder [place] Add Right [place] +0.75 017 +2.50 Left [place] +0.50 004 +2.50 In-Office Testing: None Relevant Labs and Imaging Reports: Outside Labs Summary of HPI, Assessment, and Plan: Ayesha Castrejon is a 73 y.o. female who presented 09/18/2023 as a referral from Dr. Patience Osman for evaluation of diplopia. She has a [...] and Adult Strabismus Department of Ophthalmology [facility] P: [phone] REASON FOR VISIT Ayesha Castrejon presents to [...] scans included Lab work being done in [place] Last edited by Cordelia Raza on 09/18/2023 2:46 PM. Allergies, medications & history reviewed & updated by Cordelia Raza REVIEW OF SYSTEMS Review of Systems HENT: Positive for tinnitus. Eyes: Positive for visual disturbance. Neurological: Negative for syncope and speech difficulty. >10 minutes was spent with patient updating allergies, medications, and medical history. Referring Physician: Patience Osman MD [address] [place] [address] [address] [facility] [address] [place] [address] Ayesha Castrejon is a 72 y.o. female [...] reviewed edited the exam and documentation by scribe, Shawn Vincent. Please see my full note for final visit documentation. Srini Daley MD Neuro-Ophthalmology and Adult Strabismus Department of Ophthalmology [facility] documented in this encounter [facility] 04-02-2023 History of Presen t illness Narrative Subjective History of Present Illness [...] is feeling better since she saw a Hydroelectric Plant Electrician who started her on Enzymes and low [...] 26. Negative SSA., SSB, Chromcatin, Michelle-1, Scleroderma, [employer] ADVERTISING & ONLINE, Leal, Centromere, ANCA, HLA-B27, Celiac, CCP, Lyme, [...] with your patient. documented in this encounter [facility] 09-25-2022 History of Presen t illness Narrative History of Present Illness Prolia [...] temperature source Temporal, height 1.537 m (5' 0.5), weight 56.6 kg (124 lb 12.5 oz). [...] Right ankle: Normal. Left ankle: Normal. Comments: /18 fibro tender points Skin: General: Skin is [...] 0 on the left side. Comments: Decreased station cook strength both hands Psychiatric: Mood and Affect: [...] Achilles 0 0 Gait Normal gait. Decreased station cook strength both hands. Assessment and Plan Would [...] 26. Negative SSA., SSB, Chromcatin, Michelle-1, Scleroderma, CORPORATE VP ADVERTISING & ONLINE, Leal, Centromere, ANCA, HLA-B27, Celiac, CCP, Lyme, [...] to your care. documented in this encounter [facility] 09-23-2022 Discharge summary Note Date/Time September 23, 2022 3:20pm [facility] [address] [place] [address]. [address] [place] [address] / REHABILITATION SERVICES DISCHARGE SUMMARY MR#: [id number] Acct: [id number] Name: AYESHA CASTREJON Rep #: [id number] : 1950 71 From: Cert. PAYTON MyersT, [facility] Referring Dr.: Dr. Caryn Jarvis Jr., MD Status: REG RCR Insurance: MEDICARE PART A B ANTHEM Discharge Summary D/C summary: It has been my pleasure to treat AYESHA CASTREJON referred by Dr. Caryn Jarvis Jr., MD, with the diagnosis of CERVICALAGIA,CERVICAL DDD,DORSALAGIA,LUMABR DDD for a total of 8 visit(s). Discharge Date: 09/23/22 Please see the following information for a summary of their discharge status. Subjective Subjective: Loved ex's but caused soreness in back and arm Pain Bilateral Back: Pain Intensity (Out of 10): 5 Bilateral Neck: Pain Intensity (Out of 10): 0 Overall Improvement % Improvement: 10 Objective Objective/Function: Objective: POSTURE: mild forward posture GAIT: reciprocal pattern PALAPTION: tender UT/levator/scanes NEURO: denies paresthesia/tingling ,reflexes C5-6-7 2/3 ,L3-4,L4-5,L5-S1 2/3 CERVICAL ROM: flexion min loss ,lateral flexion mod/MIN loss ,rotation mod/MIN loss ,extension mod loss LUMBAR ROM: flexion min loss ,extension WFL loss ,side glides min loss FLEXABLITY: min hamstrings MMT: quads/hams 4/5 ,hip flexion 4-/5 ,ankle 4/5 MMT: BUE 4/5 ,shoulder 4-/5 Goals Goal 1:: Patient to be I with HEP Goal Progress: Progressing Goal 2:: Patient to demonstrate 50% improvement with less pain neck/back and improve function Goal Progress: Not Progressing Goal 3:: Patient to improve cervical/lumbar ROM for function of recovery for ADLS and housework tasks Goal Progress: Not Progressing Goal 4:: Patient to improve back oswestry score by 5 points to improve function. Goal Progress: Not Progressing Goal 5:: Patient to improve ADLS and housework tasks with less pain proigressingto gym program Goal Progress: Not Progressing Plan Plan: D/C RECOMMENDED RTD D/C Information Discharge Comments: D/C TO [facility] AT [facility] d/c sentence: If there are questions or concerns regarding this patient's physical therapy, please feel free to call me at [phone]. Thank you for the referral of thispatient. Sincerely, Heraclio Estrada PT, Cert MDT, OCS Balance/Gait/Functional tests Balance/Special Test Scores Oswestry Low Back Score: 20 <Electronically signed by Lavon Davis PT. NGOZI, OCS> 09/23/22 1522 CC: Dr. Hawk Douglas MD; Dr. Caryn Jarvis Jr., MD ~ JLA Signed [facility] Work Phone: 1(268) 486-172806-21-2023 History of Present illness Narrative* Caryn Jarvis Jr., DO - 08/07/2022 11:45 AM EDT History of Present Illness Prolia 2 started 2020. Prolia is every April and October. Presence of Pain: complains of pain/discomfort Select Pain Scale: DVPRS (Defense and Veterans Pain Rating Scale) (Adult- Cognitively Intact) DVPRS: Rest: 3- mild pain Select Pain Scale: DVPRS (Defense and Veterans Pain Rating Scale) (Adult- Cognitively Intact). Totaltime spent in this encounter was 47 minutes. [...] over body. States has flare up in middleof upper back that radiates to chest. States [...] temperature source Temporal, height 1.537 m (5' 0.5), weight 56.6 kg (124 lb 12.8 oz). [...] 0 on the left side. Comments: Decreased station cook strength both hands Psychiatric: Mood and Affect: [...] Achilles 0 0 Gait Normal gait. Decreased station cook strength both hands. Assessment and Plan Would [...] eval and F/U treatment by PMR and/or ChronicPain Management 13. Rx given for PT. 14. [...] F/U [facility] Dr. Cheek [facility] History of Present illness Narrative* Robyn Horvath MD - 12/13/2021 9:01 AM EDT FOLLOW UP VISIT - ENDOSCOPY NAME: Ayesha Segovia [facility] NO.: [id number] DATE OF SERVICE: 12/13/2021 : 1950 REFERRING [...] retrieved. Clips (MR conditional) were placed. Clip mixing machine tender: [place]. - The examination was otherwise normal on [...] resp. rate 14, height 153.7 cm (5' 0.5), weight 55.3 kg (122 lb), SpO2 99 [...] to follow-up with me as needed. Robyn Horvath MD [facility] Nurse Note* Jane Suresh RN - 12/04/2021 10:39 AM EDT Arrived in phase II via cart, left lateral position, eyes open, alert to self, place and event. Skin warm and dry, respirations regular and unlabored. Reports she was aware of the entire procedure, was not in any discomfort but never went to sleep. Dr Horvath at bedside and reviewed results with patient at bedside. Abdomen soft and non distended, denies pain or nausea. Resting comfortably. documented [facility] History and physical note * Robyn Horvath MD - 12/04/2021 9:45 AM EDT UPDATED PROCEDURAL SEDATION HISTORY AND PHYSICAL EXAMINATION SERVICE DATE: 12/04/2021 SERVICE TIME: 9:55 AM PHYSICAL EXAM MUST BE COMPLETED ON ADMISSION PROCEDURE: Procedure Indications: The History and Physical (completed in the past 30 days) has been reviewed and the patient has beenexamined. The contents accurately reflect the patient's condition [...] be found in the attached. SIGNATURE: Robyn Horvath MD PATIENT NAME: Ayesha Castrejon DATE: December 04, 2021 TIME: 9:55 AM Source Note - Robyn Horvath MD - 12/04/2021 9:45 AM EDT Images [...] of Dr. Malvin Douglas MD for my opinionand advice regarding high risk screening colonoscopy. PAST [...] RELIEF) 50 mcg/actuation nasal spray Use 1 [place] in each nostril as needed. VITAMIN E [...] entered by the nurse and reviewed by ct Nursing Notes: Mary Sousa LPN 09/19/2021 9:10 [...] failure, other cardiac issues, denies claudication, denies coldfeet, denies peripheral arterial stent. Respiratory: The patient [...] nourished, well hydrated in no acute distress. Thepatient is oriented to time, place, and person. VITALS: Blood pressure 118/58, pulse 92, temperature 37.1 C (98.7 F), height 152.4 cm (5'), weight 54.9 kg (121 lb), SpO2 96 %. Body mass index is 23.63 kg/m . HEENT: Normal cephalic, ataumatic, pupils are equally round, sclera are anicteric, mucous membranesare moist, oropharynx is clear. Neck has no [...] after the testing has been completed. Robyn Horvath MD * Robyn Horvath MD - 12/04/2021 9:45 AM EDT Images [...] of Dr. Malvin Douglas MD for my opinionand advice regarding high risk screening colonoscopy. PAST [...] RELIEF) 50 mcg/actuation nasal spray Use 1 [place] in each nostril as needed. VITAMIN E [...] entered by the nurse and reviewed by ct Nursing Notes: Mary Sousa LPN 09/19/2021 9:10 [...] failure, other cardiac issues, denies claudication, denies coldfeet, denies peripheral arterial stent. Respiratory: The patient [...] nourished, well hydrated in no acute distress. Thepatient is oriented to time, place, and person. VITALS: Blood pressure 118/58, pulse 92, temperature 37.1 C (98.7 F), height 152.4 cm (5'), weight 54.9 kg (121 lb), SpO2 96 %. Body mass index is 23.63 kg/m . HEENT: Normal cephalic, ataumatic, pupils are equally round, sclera are anicteric, mucous membranesare moist, oropharynx is clear. Neck has no [...] after the testing has been completed. Robyn Horvath MD documented in this encounterReg[facility]Evaluation noteNo assessment information availableWOhio Valley Surgical Hospital Work Phone: Evaluation note* Diagnosis Onset Date Resolution Status Intermittent palpitations ac cahto Premature atrial contractions acute Premature ventricular contraction acute [facility] Work Phone: Evaluation note* Diagnosis Family history of malignant neoplasm of gastrointestinal tract- Primary [facility]* Diagnosis Adenomatous polyp of colon, unspecified part of colon- Primary [facility]* Diagnosis Onset Date Resolution Status Muscle cramps acute Polyneuropathy chronic RLS (restless legs syndrome) chronic [facility] Work Phone: Evaluation note* Diagnosis Cervicalgia- Primary Dorsalgia Pain in [...] site of spine [facility] Diagnosis Onset Date Resolution Status Muscle cramps chronic Polyneuropathy chronic RLS (restless legs syndrome) chronic [facility] Work Phone: Evaluation note* Diagnosis Hypocalcemia- Primary Fibromyalgia Mylagia and [...] findings Other proteinuria [facility]* Diagnosis Hypothyroidism, unspecified type- [...] intervertebral disc Long-term use of high-risk medication MCC current use of systemic steroids Encounter for [...] serum enzyme levels [facility] Diagnosis Onset Date Resolution Status Influenza due to influenza virus, type A, human acute Muscle cramps chronic Polyneuropathy chronic RLS (restless legs syndrome) [facility] Work Phone: Evaluation note* Diagnosis Onset Date Resolution Status Influenza due to influenza virus, type A, human acute Muscle cramps chronic Polyneuropathy chronic RLS (restless legs syndrome) chronic Intermittent palpitations ac cahto [facility] Work Phone: Evaluation note* Diagnosis Diplopia- Primary Esotropia, right eye Esotropia, unspecified [facility] Diagnosis Dry mouth- Primary Disturbance [...] osteoporosis Personal history of other musculoskeletal disorders MCC current use of non-steroidal anti-inflammatories (NSAID) Encounter for long-term (current) use of non-steroidal anti-inflammatories Long-term use of high-risk medication Neutropenia, unspecified type Positive double stranded DNA antibody test Other and unspecified nonspecific immunological findings [facility] Diagnosis Screen for colon cancer- Primary Special screening for malignant neoplasms, colon Adenomatous polyp of colon, unspecified part of colon Family history of colon cancer in father [facility] encounter [facility]* Diagnosis Family history of malignant neoplasm of gastrointestinal tract- Primary Screen for colon cancer Special screening for malignant neoplasms, colon Adenomatous polyp of colon, unspecified part of colon documented in this encounter [facility]* Diagnosis Encounter for gynecological examination (general) (routine) without abnormal findings- Primary Encounter for screening mammogram for malignant neoplasm of breast Other screening mammogram documented [facility]* Diagnosis Overactive bladder- Primary Hypertonicity of bladder documented [facility]* Diagnosis Cystocele, midline- Primary Urinary frequency documented in this encounter [facility] for referral (narrative)* Outpatient Procedure (Routine) - Closed Specialty Diagnoses / Procedures Referred By Juan recio Referred To Contact [facility] Diagnoses Family history of malignant neoplasm of gastrointestinal tract Procedures COLONOSCOPY SCREENING COLONOSCOPY FLX DX W/COLLJ SPEC WHEN Robyn Hartman MD [address] [place] [address] [facility] [place] [address] [id number] Referral ID Status Reason Start Date Expiration Date V isits Requested Visits Authorized [id number] Closed Auto-Generate d Referral 09/19/2021 09/19/2022 1 1 [facility] for referral (narrative)* Outpatient Procedure (Routine) - Authorized Specialty Diagnoses / Procedures Referred By Juan recio Referred To Contact [facility] Diagnoses Screen for colon cancer Adenomatous polyp of colon, unspecified part of colon Procedures COLONOSCOPY SCREENING COLONOSCOPY FLX DX W/COLLJ SPEC WHEN Maren Bardales APRN.CNP [address] [place] [phone] [facility] [address] [place] [address] Referral ID Status Reason Start Date Expiration Date Visits Requested Visits Authorized [id number] Authorized Auto-Generat ed Referral 11/13/2023 11/12/2024 1 1 [facility] for referral (narrative)* Outpatient Procedure (Routine) - Closed Specialty Diagnoses / Procedures Referred By Juan recio Referred To Contact [facility] Diagnoses Screen for colon cancer Adenomatous polyp of colon, unspecified part of colon Procedures COLONOSCOPY SCREENING COLONOSCOPY FLX DX W/COLLJ SPEC WHEN Maren Bardales APRN.CNP [address] [place] [address] [facility] [place] [address] [place] [address] Referral ID Status Reason Start Date Expiration Date V isits Requested Visits Authorized [id number] Closed Auto-Generate d Referral 11/13/2023 11/12/2024 1 1 [facility] for referral (narrative)* Diagnostic Procedure Only (Routine) - New Request Specialty Diagnoses / Procedures Referred By Juan recio Referred To Contact [facility] Diagnoses Encounter for screening mammogram for malignant neoplasm of breast Procedures PRATIBHA SCREENING W VANDANA SCREENING DIGITAL BREAST TOMOSYNTHESIS BI SCREENING MAMMOGRAPHY BI 2-VIEW BREAST INC CAD Demarco Vogel MD [address] [place] [address] [facility] [address] [place] [address] Referral ID Status Reason Start Date Expiration Date Visits Requested Visits Authorized [id number] New Request Auto-Generat ed Referral 02/26/2024 03/27/2025 1 1 [facility] for visit Narrative* Outpatient Procedure (Routine) - Closed Specialty Diagnoses / Procedures Referred By Juan recio Referred To Contact [facility] Diagnoses Family history of malignant neoplasm of gastrointestinal tract Procedures COLONOSCOPY SCREENING COLONOSCOPY FLX DX W/COLLJ SPEC WHEN Robyn Hartman MD [address] [place] [address] [facility] [place] [address] [place] [address] Referral ID Status Reason Start Date Expiration Date V isits Requested Visits Authorized [id number] Closed Auto-Generate d Referral 09/19/2021 09/19/2022 1 1 [facility] for visit Narrative* Outpatient Procedure (Routine) - Closed Specialty Diagnoses / Procedures Referred By Contac t Referred To Contact [facility] Diagnoses Screen for colon cancer Adenomatous polyp of colon, unspecified part of colon Procedures COLONOSCOPY SCREENING COLONOSCOPY FLX DX W/COLLJ SPEC WHEN PFMaren Chow, SOC ANALYST.AVIONICS SYSTEMS REPAIRER [address] [place] [address] [facility] [place] [address] [place] [address] Referral ID Status Reason Start Date Expiration Date V isits Requested Visits Authorized [id number] Closed Auto-Generate d Referral 11/13/2023 11/12/2024 1 1 [facility] Summary Purpose Family History No Family History Records Found Relationship Condition Age at Onset Recorded Date/T ronald father Coronary artery disease Unknown History of coronary artery bypass surgery Unknown mother History of permanent cardiac pacemaker placement Unknown Advance Directives No Advanced Directives Records Found Advance Directive Response Recorded Date/ Time Advance Directives No October 03, 2013 10:26am Living Will No October 03 4 10:26am Power of Regional Wildlife Agent No October 03 014 10:26am Advance Directive Response Recorded Date/ Time Advance Directives No October 03, 2013 9:26am Living Will No October 03 4 9:26am Power of Regional Wildlife Agent No October 03 014 9:26am Advance Directive Response Recorded Date/ Time Advance Directives No January 7:42am Living Will No February 14 023 7:42am Power of Regional Wildlife Agent No February 14, 2023 7:42am Advance Directive Response Recorded Date/ Time Advance Directives No January 8:42am Living Will No February 14 023 8:42am Power of Regional Wildlife Agent No February 14, 2023 8:42am Chief Complaint and Reason for Visit Chief Complaint 1 Y FU EORDER Reason for Visit Intermittent palpita tions Premature atrial contractions Premature ventricular contraction Chief Complaint 1 Y FU EORDER SCREENING Reason for Visit Intermittent palpita tions Premature atrial contractions Premature ventricular contraction Chief Complaint 1 Y FU EORDER SCREENING EORDER- ADD ADDT ORDERS WELL Reason for Visit Intermittent palpita tions Premature atrial contractions Premature ventricular contraction Chief Complaint SCREENING EORDER- ADD ADDT ORDERS WELL POSSIBLE NUEROPATHY EORDER Reason for Visit Muscle cramps Polyneuropathy RLS (restless legs syndrome) Chief Complaint EORDER- ADD ADDT ORD ERS WELL POSSIBLE NUEROPATHY EORDER XRAY MUSCLE CRAMPS, POLYNEUROPATHY MUSCLE CRAMPS, POLYNEUROPATHY CHEST XRAY Reason for Visit Muscle cramps Polyneuropathy RLS (restless legs syndrome) Chief Complaint POSSIBLE NUEROPATHY EORDER XRAY MUSCLE CRAMPS, POLYNEUROPATHY MUSCLE CRAMPS, POLYNEUROPATHY CHEST XRAY Reason for Visit Muscle cramps Polyneuropathy RLS (restless legs syndrome) Chief Complaint XRAY MUSCLE CRAMPS, POLYNEUROPATHY MUSCLE CRAMPS, POLYNEUROPATHY CHEST XRAY 4 M FU SEE ORDER- 54 PAGES/ ADD XRAYS Reason for Visit Muscle cramps Polyneuropathy RLS (restless legs syndrome) Chief Complaint MUSCLE CRAMPS, POLYN EUROPATHY MUSCLE CRAMPS, POLYNEUROPATHY CHEST XRAY 4 M FU SEE ORDER- 54 PAGES/ ADD XRAYS EORDER- STOOL BACK PAIN / RX HERE Reason for Visit Muscle cramps Polyneuropathy RLS (restless legs syndrome) Chief Complaint 4 M FU SEE ORDER- 54 PAGES/ ADD XRAYS EORDER- STOOL BACK PAIN / RX HERE Reason for Visit Muscle cramps Polyneuropathy RLS (restless legs syndrome) Chief Complaint 4 M FU SEE ORDER- 54 PAGES/ ADD XRAYS EORDER- STOOL BACK PAIN / RX HERE OSTEO Reason for Visit Muscle cramps Polyneuropathy RLS (restless legs syndrome) Chief Complaint 4 M FU SEE ORDER- 54 PAGES/ ADD XRAYS EORDER- STOOL OSTEO BACK PAIN / RX HERE Reason for Visit Muscle cramps Polyneuropathy RLS (restless legs syndrome) Chief Complaint 4 M FU SEE ORDER- 54 PAGES/ ADD XRAYS EORDER- STOOL OSTEO BACK PAIN / RX HERE SEE ORDER Reason for Visit Muscle cramps Polyneuropathy RLS (restless legs syndrome) Chief Complaint OSTEO BACK PAIN / RX HERE SEE ORDER 4 month f/u SCREENING Reason for Visit Muscle cramps Polyneuropathy RLS (restless legs syndrome) Chief Complaint OSTEO BACK PAIN / RX HERE SEE ORDER 4 month f/u SCREENING NEED ORDER EORDER- ABD XRAY Reason for Visit Muscle cramps Polyneuropathy RLS (restless legs syndrome) Chief Complaint SCREENING NEED ORDER EORDER- ABD XRAY COUGH, WHEEZING consult about supplements XRAY LEFT HIP Reason for Visit Influenza due to inf luenza virus, type A, human Muscle cramps Polyneuropathy RLS (restless legs syndrome) Chief Complaint COUGH, WHEEZING consult about supplements XRAY LEFT HIP 1 Y FU LUMBAR DDD Reason for Visit Influenza due to inf luenza virus, type A, human Muscle cramps Polyneuropathy RLS (restless legs syndrome) Intermittent palpitations Medications Administered Section Inactive Administered Medications - [...] 10:03 AM EDT 25 mcg Given by [facility] 12/04/2021 10:01 AM EDT 50 mcg midazolam (PF) 1-5 mg injection (VERSED) 1-5 mg, INTRAVENOUS, DIRECTED, Starting on Fri12/04/21 at 1030, Until Fri12/04/21 at 1429, DOSING DIRECTED BY PHYSICIAN FOR PROCEDURAL SEDATION ONLY, Intraprocedure Given by [facility] 12/04/2021 10:04 AM EDT 1 mg Given by [facility] 12/04/2021 10:03 AM EDT 1 mg Given by [facility] 12/04/2021 10:01 AM EDT 3 mg Reason [...] lower extremity Wiliam Nolen, Caryn Monsivais, DO [address] [place] [address] Referral ID Status Reason Start Date Expiration Date V isits Requested Visits Authorized [id number] New Request 08/07/2022 09/01/2023 1 1 Scheduling Instructions . Additional Source Comments INFORMATION SOURCE (unrecogn ized section and content) DATE CREATED AUTHOR 08/07/2017 [facility] DATE CREATED AUTHOR AUTHOR'S ORGANIZ ATION 08/18/2022 [facility] DATE CREATED AUTHOR AUTHOR'S ORGANIZ ATION 10/04/2023 [facility] DATE CREATED AUTHOR AUTHOR'S ORGANIZ ATION 10/14/2023 [facility] DATE CREATED AUTHOR AUTHOR'S ORGANIZ ATION 03/06/2024 [facility] DATE CREATED AUTHOR AUTHOR'S ORGANIZ ATION 08/04/2024 [facility] Goals (unrecognized section and content) Goals may be documented in a n alternate sectionGoals may be documented in an alternate sectionGoals may be documented in an alternate sectionGoals may be documented in an alternate sectionGoals may be documented in an alternate sectionGoals may be documented in an alternate sectionGoals may be documented in an alternate sectionGoals may be documented in an alternate sectionGoals may be documented in an alternate sectionGoals may be documented in an alternate sectionGoals may be documented in an alternate sectionGoals may be documented in an alternate sectionGoals may be documented in an alternate sectionGoals may be documented in an alternate sectionGoals may be documented in an alternate sectionGoals may be documented in an alternate sectionGoals may be documented in an alternate sectionGoals may be documented in an alternate section Source Comments (unrecognize d section and content) In the event this informatio n is protected by the Federal Confidentiality of Alcohol and Drug Abuse Patient Records regulations: The Federal rules restrict any use of the information to criminally investigate or prosecute any alcohol or drug abuse patient.[facility] the event this information is protected by the Federal Confidentiality of Alcohol and Drug Abuse Patient Records regulations: The Federal rules restrict any use of the information to criminally investigate or prosecute any alcohol or drug abuse patient.[facility] the event this information is protected by the Federal Confidentiality of Alcohol and Drug Abuse Patient Records regulations: The Federal rules restrict any use of the information to criminally investigate or prosecute any alcohol or drug abuse patient.[facility] the event this information is protected by the Federal Confidentiality of Alcohol and Drug Abuse Patient Records regulations: The Federal rules restrict any use of the information to criminally investigate or prosecute any alcohol or drug abuse patient.[facility] the event this information is protected by the Federal Confidentiality of Alcohol and Drug Abuse Patient Records regulations: The Federal rules restrict any use of the information to criminally investigate or prosecute any alcohol or drug abuse patient.[facility] the event this information is protected by the Federal Confidentiality of Alcohol and Drug Abuse Patient Records regulations: The Federal rules restrict any use of the information to criminally investigate or prosecute any alcohol or drug abuse patient.[facility] East[facility] the event this information is protected by the Federal Confidentiality of Alcohol and Drug Abuse Patient Records regulations: The Federal rules restrict any use of the information to criminally investigate or prosecute any alcohol or drug abuse patient.[facility] Care Teams (unrecognized sec tion and content) Moth Proofer Relationship Specialty Start Date End Date Malvin Douglas MD [address] [place] [phone] PCP - General Family Medicine 12/16/12 Moth [employer]er Relationship Specialty Start Date End Date Malvin Douglas MD [address] [place], [place] [address] [address] PCP - General Family Medicine 12/16/12 Team Status: Active Member Role Status Dates Dr. Hawk Douglas MD Family Provider Active Dr. Hawk Douglas MD Primary Care Provider Activ e Team Status: Inactive Member Role Status Dates Dr. Hawk Douglas MD Primary Care Provider, Refe rring Provider Active Dr. Kwaku Peterson MD Attending Provider Active Team Status: Inactive Member Role Status Dates Dr. Hawk Douglas MD Primary Care Provider, Attending Provider, Referring Provider Active Team Status: Inactive Member Role Status Dates Dr. Hawk Douglas MD Primary Care Provider, Atte nding Provider Active Team Status: Inactive Member Role Status Dates Dr. Hawk Douglas MD Primary Care Provider Activ e Dr. Kwaku Peterson MD Attending Provider, Referring Provider Active Team Status: Inactive Member Role Status Dates Dr. Hawk Douglas MD Primary Care Provider Activ e Dr. Panfilo Lyon MD Attending Provider Active Team Status: Active Member Role Status Dates Dr. Hawk Douglas MD Primary Care Provider Activ e Dr. Kwaku Peterson MD Referring Provider, Other Pro vider Active Dr. Malvin Swan MD Other Provider Active Dr. Ping Rodrigues MD Attending Provider Active Team Status: Inactive Member Role Status Dates Dr. Hawk Douglas MD Primary Care Provider Activ e Dr. Kwaku Peterson MD Attending Provider, Referring Provider Active Dr. Malvin Swan MD Other Provider Active Team Status: Active Member Role Status Dates Dr. Hawk Douglas MD Primary Care Provider, Attending Provider, Referring Provider Active Team Status: Inactive Member Role Status Dates Dr. Hawk Douglas MD Primary Care Provider Activ e Dr. Mac Zaldivar MD Attending Provider, Referring Pr ovider Active Moth Proofer Relationship Specialty Start Date End Date Malvin Douglas MD [address] [place], [place] [address] PCP - General Family Medicine 08/07/22 Team Status: Inactive Member Role Status Dates Dr. Hawk Douglas MD Primary Care Provider Activ e Dr. Caryn Jarvis Jr., MD Attending Provider, Ref erring Provider Active Team Status: Active Member Role Status Dates Dr. Hawk Douglas MD Primary Care Provider Activ e Dr. Caryn Jarvis Jr., MD Attending Provider, Ref erring Provider Active Team Status: Inactive Member Role Status Dates Dr. Hawk Douglas MD Primary Care Provider Activ e Dr. Yashira Mike DO Attending Provider Active Moth Proofer Relationship Specialty Start Date End Date Malvin Douglas MD [address] [place], [place] [address] PCP - General Family Medicine 08/07/22 Team Status: Inactive Member Role Status Dates Dr. Hawk Douglas MD Primary Care Provider Activ e Dr. Adam Cruz MD Attending Provider, Referring Provider Active Moth Proofer Relationship Specialty Start Date End Date Malvin Douglas MD [address] [place] [address] PCP - General Family Medicine 08/07/22 Team Status: Inactive Member Role Status Dates Dr. Hawk Douglas MD Primary Care Provider, Refe rring Provider Active [place], [place] Attending Provider Active Team Status: Inactive Member Role Status Dates Dr. Hawk Douglas MD Primary Care Provider Activ e SPRAY MACHINE LOADER. Salome Rivas Attending Provider, Referring Provid er Active Team Status: Active Member Role Status Dates Dr. Malvin Douglas MD Family Provider Active Dr. Malvin Douglas MD Primary Care Provider Acti ve Team Status: Inactive Member Role Status Dates Dr. Malvin Douglas MD Primary Care Provider, Ref erring Provider Active Dr. Kwaku Peterson MD Attending Provider Active Team Status: Inactive Member Role Status Dates Dr. Malvin Douglas MD Primary Care Provider, Ref erring Provider Active [place], [place] Attending Provider Active Team Status: Inactive Member Role Status Dates Dr. Malvin Douglas MD Primary Care Provider Acti ve Dr. Panfilo Lyon MD Attending Provider Active Team Status: Inactive Member Role Status Dates Dr. Malvin Douglas MD Primary Care Provider, Ref erring Provider Active Tamica Hall SPRAY MACHINE LOADER, SPRAY MACHINE LOADER-C Attending Provider Active Team Status: Inactive Member Role Status Dates Dr. Malvin Douglas MD Primary Care Provider Acti ve SPRAY MACHINE LOADER. Salome Rivas Attending Provider, Referring Provid er Active Moth Proofer Relationship Specialty Start Date End Date Malvin Douglas MD [address] [place] [place], [place] [address] PCP - General Family Medicine 08/07/22 Moth Proofer Relationship Specialty Start Date End Date Malvin Douglas MD [address] [place] [address] PCP - General Family Medicine 08/07/22 Moth Proofer Relationship Specialty Start Date End Date Malvin Douglas MD [address] [place] [address] PCP - General Family Medicine 12/16/12 Moth Proofer Relationship Specialty Start Date End Date Malvin Douglas MD [address] [place] [address] PCP - General Family Medicine 12/16/12 Moth Proofer Relationship Specialty Start Date End Date Malvin Douglas MD [address] [place] [address] PCP - General Family Medicine 12/16/12 Moth Proofer Relationship Specialty Start Date End Date Malvin Douglas MD [address] [place] [address] PCP - General Family Medicine 12/16/12 Moth Proofer Relationship Specialty Start Date End Date Malvin Douglas MD [address] [place], [place] [address] [phone] PCP - General Family Medicine 12/16/12 Reason [...] is feeling better since she saw a Hydroelectric Plant Electrician who started her on Enzymes and low carb diet to control her IBS. Reason Comments Double Vision Specialty Diagnoses / Procedures Referred By Juan recio Referred To Contact Ophthalmology Diagnoses Diplopia Patience Osman MD [address] [facility] [address] [place] [address] Srini Daley MD [address] [facility] [address] [place] [address] Referral ID Status Reason Start Date Expiration Date V isits Requested Visits Authorized [id number] Pending Review 07/09/2023 08/02/2024 1 1 Reason Comments Follow-up Patient is here tock y for her 6 Month Follow-up. Patient states she is doing pretty good since her last appointment. Patient states she is having right shoulder pain, she is going to see Dr. Sonido Upton. Reason Comments Consult Reason Comments Pessary Reason Comments Pessary fitting FOR RECORDS PERTAINING TO PATIENTS WHO ARE [...] BE BASED ON THE PRIMARY CLINICAL RECORDS. [facility] [employer] [facility]. provides no warranty or guarantee of the accuracy or completeness of information in this document.
== END | disposition home or self-care (01) ==
PROVIDERS: PCP Family Medicine; Referring Provider Orthopaedic Surgery Sports Medicine; Visit Provider Orthopaedic Surgery Sports Medicine
DX: M25.512 Pain in left shoulder (principal)
CPT/HCPCS: 73221

== ENCOUNTER → 2024-09-01 | Outpatient (CLI) | payer MEDICARE, BC, SELFPAY ==
[2024-09-01 12:45] LABS: PTHIN 48 pg/mL (11-61)
[2024-09-01 14:23] LABS: Anion Gap 11 (5-15); BUN 15 mg/dL (4-19); BUN/Creat Ratio 22.3 RATIO (10-20); Calcium,Total 8.7 mg/dL (7.6-11.0); Carbon Dioxide 24.4 mmol/L (21.0-32.0); Chloride 105 mmol/L (98-108); Cholesterol 282 mg/dL (<=200); Ferritin 86 ng/mL (22-378); Glucose 88 mg/dL (70-99); Low Density Lipoprotein Calc. 157 mg/dL; Potassium 3.8 mmol/L (3.3-5.1); Triglycerides 84 mg/dL; Very Low Density Lipoprotein 17 mg/dL (5-40); Vitamin D,25 Hydroxy 77.5 ng/mL (30-100); cholesterol:hdl ratio screen 2.61
[2024-09-01 15:15] LABS: Iron 103 ug/dL (50-170); Magnesium 2.1 mg/dL (1.5-2.2)
== END | disposition home or self-care (01) ==
LOC: MTLAB 08:15
PROVIDERS: PCP Family Medicine; Referring Provider Family Medicine; Visit Provider Family Medicine
DX: E03.9 Hypothyroidism, unspecified (principal); E55.9 Vitamin D deficiency, unspecified; E78.2 Mixed hyperlipidemia; G25.81 Restless legs syndrome; M81.0 Age-related osteoporosis without current pathological fracture
CPT/HCPCS: 36415; 80048; 80061; 82306; 82728; 83540; 83735; 83970; 84439; 84443

== ENCOUNTER → 2024-10-06 | Outpatient (CLI) | payer MEDICARE, BC, SELFPAY ==
--- NOTE | 2024-10-06 06:35 | ECHOD_ITS ---
Reason For Study Reason For Study: EF EVALUATION, PVC burden. Procedure This was a 2D Doppler, Color Flow transthoracic echocardiogram. Exam performed in department. Left Ventricle Normal LV size. Left ventricular systolic function is normal. The left ventricular ejection fraction is 60 %. Stage 1 diastolic dysfunction. No regional wall motion abnormalities noted. Right Ventricle Normal RV size. Normal systolic function. Atria Normal left atrium. Normal right atrium. Lipomatous hypertrophy of the atrial septum. Mitral Valve Normal mitral valve. Tricuspid Valve Normal tricuspid valve. Mild (1+) tricuspid valve insufficiency. Pulmonary artery systolic pressure is 30 mmHg. Aortic Valve Trisinus/trileaflet aortic valve. Pulmonic Valve Normal pulmonic valve. Great Vessels Normal aortic root. The pulmonary artery is normal size. Inferior vena cava collapse with respiration. Pericardium/Pleural No pericardial effusion. MMode/2D Measurements & Calculations LVIDd: 4.5 cm IVSd: 0.90 cm Ao root diam: 3.2 cm LVIDs: 2.9 cm LVPWd: 0.90 cm RVDd: 2.8 cm FS: 36.1 % LAV(MOD-bp): 31.9 ml LVAd ap4: 21.3 cm2 SV(MOD-sp4): 35.2 ml LAV(MOD-bp) Indexed: 20.6 ml/m2 LVLd ap4: 5.9 cm SI(MOD-sp4): 22.7 ml/m2 LAV(MOD-sp2): 29.1 ml EDV(MOD-sp4): 61.5 ml LAV(MOD-sp4): 31.8 ml EDV(sp4-el): 65.8 ml LVAs ap4: 12.7 cm2 LVLs ap4: 5.2 cm ESV(MOD-sp4): 26.3 ml ESV(sp4-el): 26.3 ml EF(MOD-sp4): 57.2 % EF(sp4-el): 59.9 % SV(sp4-el): 39.4 ml LA A4 area: 13.4 cm2 LA dimension(2D): 2.7 cm RA A4 area: 9.8 cm2 TAPSE: 2.3 cm Time Measurements MV dec time: 0.18 sec Doppler Measurements & Calculations MV E max anthony: 75.3 cm/sec Lat Peak E' Anthony: 5.1 cm/sec Med Peak E' Anthony: 5.9 cm/sec MV A max anthony: 88.0 cm/sec E/E' lat: 14.8 E/E' med: 12.7 MV E/A: 0.86 MV V2 max: 121.7 cm/sec MV P1/2t max anthony: 101.6 cm/sec Ao V2 max: 138.0 cm/sec MV max P.9 mmHg MV P1/2t: 57.3 msec Ao max P.6 mmHg MV V2 mean: 60.6 cm/sec Ao V2 mean: 99.0 cm/sec MV mean P.8 mmHg MV dec slope: 519.1 cm/sec2 Ao mean P.4 mmHg MV V2 VTI: 28.2 cm MVA(P1/2t): 3.8 cm2 Ao V2 VTI: 35.2 cm AV (velocity ratio): 0.60 LV V1 max: 84.6 cm/sec PA V2 max: 104.6 cm/sec LV V1 max P.9 mmHg PA V2 mean: 71.4 cm/sec PI dec slope: 176.1 cm/sec2 LV V1 mean P.7 mmHg LV V1 mean: 61.1 cm/sec LV V1 VTI: 21.2 cm TR max anthony: 257.9 cm/sec TR max P.6 mmHg ECHO/Echo Complete Interpretation Summary Normal LV size. Left ventricular systolic function is normal. The left ventricular ejection fraction is 60 %. Stage 1 diastolic dysfunction. Structurally normal valves. Ordering Physician: Joseph Hayes Referring Physician: Bulmaro Douglas Performed By: Deysi Infante, ADDISON, RVT
--- OUTSIDE RECORDS SUMMARY | 2024-10-06 06:36 | XMS RPT_ITS | CCD ---
Author Organization [facility] Care Team Providers Care Retail Marketing Coordinator Name Role Phone Anil Pa Unavailable Unavailable Billie GRIMALDO, Zakiya Pacheco Unavailable Unavailable Anil Pa Unavailable Unavailable Haseeb, Ashley Joanne Unavailable Unavailab le Haseeb, Ashley Joanne Unavailable Unavailab le Ranney Christopher Unavailable Unavailable Haseeb, Ashley Joanne Unavailable Unavailab le Omar, Reema M Unavailable Unavailable Terell Douglasopher Unavailable Unavailable Haseeb, Ashley Joanne Unavailable Unavailab le Omar, Reema M Unavailable Unavailable Talaamntes, Demarco Laura Unavailable Unavailable Luke Douglaser Unavailable Unavailable Haseeb, Ashley Joanne Unavailable Unavailab le Talamantes, Demarco Laura Unavailable Unavailable DeFinis, Harumi Y Unavailable Unavailable Dr. Hawk Douglas Primary Care Provider [phone] Dr. Hawk Douglas Referring Provider Dr. Mac Bynum Attending Provider [phone] Malvin Douglas MD Primary Care Provider Dr. Hawk Douglas Primary Care Provider [phone] Dr. Hawk Douglas Referring Provider Dr. Mac Bynum Attending Provider Dr. Hawk Douglas Primary Care Provider [phone] Dr. Hawk Douglas Referring Provider Dr. Kwaku Peterson Attending Provider Dr. Hawk Douglas Primary Care Provider [phone] Dr. Hawk Douglas Referring Provider Dr. Kwaku Peterson Attending Provider [phone] Panfilo Lyon Attending Provider [phone] Kwaku Peterson Referring Provider [phone] Kwaku Peterson Other Provider Dr. Malvin Swan Other Provider Dr. Ping Rodrigues Attending Provider Dr. Ping Rodrigues Attending Provider Malvin Douglas MD Primary Care Provider Dr. Hawk Douglas Primary Care Provider Dr. Hawk Douglas Referring Provider Dr. wKaku Peterson Attending Provider [phone] MALVIN DOUGLAS Primary Care Unavailabl e Dr. Hawk Douglas Primary Care Provider Dr. Hawk Douglas Primary Care Provider Dr. Hawk Douglas Primary Care Provider Dr. Hawk Douglas Referring Provider Dr. Kwaku Peterson Attending Provider [phone] Hawk Douglas Primary Care Provider Dr. Hawk Douglas Referring Provider MIKAELA Rodríguez Attending Provider Dr. Kwaku Peterson Attending Provider Dr. Panfilo Lyon Attending Provider [phone] Malvin Douglas Primary Care Provider Dr. Malvin Douglas Referring Provider MIKAELA Rodríguez Attending Provider Dr. Kwaku Peterson Attending Provider [phone] Panfilo Lyon Attending Provider Rafael ABRAMS, ANGELA Daevy Attending Provider SRINI DALEY Attending Unavailable MALVIN DOUGLAS Primary Care Unavailabl e PATIENCE OSMAN Referring Unavailable MALVIN DOUGLAS Primary Care Unavailabl e SELF, SELF Referring Unavailable STAINHANK DUONG, CARYN Monsivais Attending Unavaila ble STAINHANK DUONG, CARYN Monsivais Attending Unavaila ble MALVIN DOUGLAS Primary Care Unavailabl e SELF, SELF Referring Unavailable Malvin Douglas MD Primary Care Provider DEMARCO VOGEL Attending Unavailable MALVIN DOUGLAS Primary Care Unavailabl e DEMARCO VOGEL Attending Unavailable MALVIN DOUGLAS Primary Care Unavailabl e ROBYN HORVATH Attending Unavailable MAREN HERRMANN Referring Unavailable MALVIN DOUGLAS Primary Care Unavailabl e ROBYN HORVATH Referring Unavailable MAREN HERRMANN Attending Unavailable MALVIN DOUGLAS Primary Care Unavailabl e Stella CAIN, Dr. Chamberlain Primary Care Provider Stella CAIN, Dr. Chamberlain Referring Provider [phone] Nirmal Head MD Attending Provider Nirmal Head MD Referring Provider Camron CAIN, Dr. Whittaker Attending Provider Dr. Aramis Rivera DO Attending Provider Dr. Malvin Douglas MD Primary Care Provider Dr. Malvin Douglas MD Referring Provider Nirmal Head MD Attending Provider Dr. Malvin Douglas MD Attending Provider Nelson CAIN, Dr. Damico Attending Provider Stella CAIN, Dr. Chamberlain Primary Care Provider Dr. Malvin Douglas MD Referring Provider [phone] Nirmal Head MD Attending Provider Freddy 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Joseph Attending Provider Nirmal Head Attending Unavailable Nirmal Head Referring Unavailable Malvin Douglas Primary Care Unavailable Cathleen 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, Tameka Mondragon Attending UnavailMikey Rodriguez Referring Unavailable [facility] Primary Care Unavailable Sonido, Nirmal Attending Unavailable [facility] [place] Referring Unavailable [facility] Unavailable MiguelangelneyLukeer Attending Unavailable Dylanison, Nirmal Attending Unavailable Mollison, Nirmal Referring Unavailable [place]available Konrad Durant Referring Unavailable [place] Unavailable Konrad Durant Attending Unavailable Mollison, Nirmal Attending Unavailable Mollison, Nirmal Referring Unavailable Kancherla, Catarino Consulting Unavailable [facility] Primary Care Un[facility] Unavailable [place], Christopher Referring Unavailable [place], [facility] Attending Unavailable Dylanison, Nirmal Attending Unavailable [facility] Primary Care Unavailable [place] Referring Unavailable Mollison, Nirmal Attending Unavailable [facility] Primary Care Unavailable [place], Christopher Referring Unavailable Dylanison, Nirmal Attending Unavailable [facility] Primary Care Unavailable [facility] Referring Unavailable [facility] Primary Care Unavailable Aramis Rivera Attending Unavailable [facility] Referring Unavailable Panfilo Lyon Attending Unavailable [facility] Primary Care Unavailable Nirmal Head Attending Unavailable [facility] Primary Care Un[facility] Referring Unavailable [facility] Primary Care Unavailable [place], Christopher Referring Unavailable [place], Christmonikaer Attending Unavailable Mookie Damon Referring Unavailable [place] Unavailable Mookie Damon Attending Unavailable Freddy 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, Joseph Vidal Referring Unavailable [place], [facility] Primary Care Unavailable Joseph Hayes NP Attending Unavailable Sonido Nirmal Referring Unavailable Sonido, Nirmal Attending [facility]available [facility] Unavailable Sonido, Nirmal Referring Unavailable Panfilo Lyon Attending Unavailable [place] Unavailable Nirmal Head Attending Unavailable Mollison, Nirmal Referring Unavailable Kancherla, Catarino Consulting [facility]available [facility] Unavailable Sonido, Nirmal Consulting Unavailable Sonido, Nirmal Attending Unavailable [facility] Unavailable [place], Christopher Referring Unavailable [place] Unavailable Miguelangelney, Christopher Referring Unavailable Mollison, Nirmal Attending Unavailable [place] Unavailable [place], Christopher Referring Unavailable Nirmal Head Attending Unavailable Nirmal Head Attending Unavailable Nirmal Head Referring Unavailable [place] Unavailable Nirmal Head Attending Unavailable [place] Referring Unavailable [facility] Unavailable Panfilo Lyon Attending Unavailable [place] Unavailable [place] Care Unavailable [place], Christopher Referring Unavailable Aramis Rivera Attending Unavailable Panfilo Lyon Attending Unavailable [facility] Primary Care Unavailable Nirmal Head Attending Unavailable [place], [place] Primary Care Unavailable [place] Referring Unavailable Mookie Damon Attending Unavailable [facility] Unavailable [place] Referring Unavailable Panfilo Lyon Attending Unavailable [facility] Primary Care Unavailable Joseph Hayes NP Attending Unavailable [facility] Primary Care Unavailable [place] Referring Unavailable Cathleen 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, Tameka Mondragon Attending Unavailabl e [facility] Primary Care Unavailable Mikey Toribio Referring Unavailable Cathleen 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, Tameka Mondragon Consulting Unavailabl e [place], [place] Referring Unavailable Aramis Rivera Attending Unavailable [facility] Primary Care Unavailable [facility] Primary Care Unavailable [facility] Referring Unavailable [facility], [facility] Attending Unavailable Allergies Allergy Classification Reported Allergen(s) Allergy Type Date of Onset Reaction(s) Facility (4 sources) meperidine drug allergy 1 Nausea [facility] Work Phone: (18 sources) Meperidine Drug Allergy 1 Nausea [facility] (8 sources) Alendronate; Translations: [ALENDRONATE SODIUM] Drug Allergy 6 Intolerance [facility] (8 sources) cyclobenzaprine; Translations: [CYCLOBENZAPRINE HCL] Drug Allergy 6 Intolerance [facility] (8 sources) raNITIdine; Translations: [RANITIDINE HCL] Drug Allergy 6 Intolerance [facility] (5 sources) guaiFENesin / Pseudoephedrine Drug Allergy 3 Palpitations [facility] (8 sources) Pseudoephedrine Drug Allergy 5 Rapid Heart rate [facility] (1 source) Meperidine Drug Allergy 4 [facility] (1 source) Pseudoephedrine Drug Allergy 5 [facility] Medications Current Medications Medication Drug Class(es) Dates Sig (Normalized) Sig (Original) acetaminophen 500 mg oral tablet (3 sources) Start: 09-07-2024 take 1 tablet by mouth every six hours as needed Acetaminophen (Tylenol Extra Strength) 500 mg tablet Active 500 mg PO EVERY 6 HOURS as needed September 07, 2024 12:00am Calcium (8 sources) Phosphate Binder, Calcium Start: 03-17-2024 take 1 tablet by mouth once daily Calcium 500 mg tablet Active 500 mg PO DAILY March 17, 2024 1:00am calcium carbonate 1250 mg oral tablet (10 sources) Start: 08-14-2022 End: 10-13-2023 take 1 tablet by mouth once daily oyster shell calcium 1250 (500 Ca) MG tablet take 1 tablet by mouth once daily 360 tablet 09/21/2023 Active Cetirizine (7 sources) Histamine-1 Receptor Antagonist [...] oral tablet (20 sources) Vitamin D Start: 04-03-19 take 1 tablet by mouth once daily Cholecalciferol (Vitamin D3) 25 mcg (1,000 unit) tablet Active 4000 U PO DAILY April 03, 2022 9:52am Start: 11-05-2021 End: 04-03-2022 take 1 tablet by mouth every other day Cholecalciferol (Vitamin D3) 25 mcg (1,000 unit) tablet Discontinued 4000 U PO .every other day November 05, 2021 9:43am April 03, 2022 9:55am Start: 06-28-2021 End: 11-05-2021 take 1 capsule by mouth once daily Cholecalciferol (Vitamin D3) 125 mcg (5,000 unit) capsule Discontinued 125 ug PO DAILY June 28, 2021 12:00am November 05, 2021 9:43am Start: 09-01-2017 End: 11-05-2021 take 1 tablet by mouth once daily Cholecalciferol (Vitamin D3) 1,000 unit (25 mcg) tablet Discontinued 1000 U PO daily November 25, 2018 11:31am November 05, 2021 9:45am Start: 08-02-2011 take 1 tablet by abdulkadir th once daily VITAMIN D 2000 UNIT TABS One tablet by mouth daily CHOLECALCIFEROL [id number] Mac Bynum MD Start: 08-02-2011 End: 09-09-2016 take 2 tablets by mouth once daily VITAMIN D 2000 UNIT TABS Two tablets by mouth daily CHOLECALCIFEROL [id number] Mac Bynum MD Start: 01-23-2011 take 1 tablet by abdulkadir th once, then take 3 tablets by mouth once daily VITAMIN D 400 UNIT TABS One tablet by mouth three X daily CHOLECALCIFEROL [id number] Gali Tidwell CHOLECALCIFEROL, VITAMIN D3, (VITAMIN D-3 ORAL) (7 sources) take 2000 [IU] by mouth once daily CHOLECALCIFEROL, VITAMIN D3, (VITAMIN D-3 ORAL) Take 2,000 Units by mouth once daily. Active CHOLECALCIFEROL, VITAMIN D3, (VITAMIN D-3 ORAL) Take by mouth once daily. 0 Active Comment on above: Take by mouth once d aily. 1 ml denosumab 60 mg/ml prefilled syringe (20 sources) RANK Ligand Inhibitor Start: 11-27-2018 End: 09-17-2021 Denosumab (Prolia) 60 mg/mL syringe Active 60 mg SC every 6 months 02 17September 17, 2021 3:15pm Osteoporosis Age-related osteoporosis without current pathological fracture denosumab (PROLI A SUBCUTANEOUS) Inject 60 mg/mL subcutaneously once every 6 months. Active denosumab (PROLI A SUBCUTANEOUS) Inject subcutaneously once every 6 months. 0 Active Comment on above: Inject subcutaneousl y once every 6 months. DIGESTIVE ENZYMES PO (3 sources) DIGESTIVE ENZYME S PO Take by mouth. Active fluticasone propionate 0.05 mg/actuat metered dose nasal spray (12 sources) Corticosteroid fluticasone (BESS NASE) 50 mcg/actuation nasal spray Use 1 [place] in each nostril as needed. Active End: 10-13-2023 fluticasone 50 MCG/ACT Suspe nsion nasal spray 1 spray by Does Not Apply route. 10/13/2023 Discontinued (Medication Reconciliation (suppress cancel msg)) Comment on above: Use 1 [place] in each nostril as needed. Folinic-Plus 4-50-2 MG tablet (2 sources) Start: 09-02-2023 take 1 tablet by mouth once daily Folinic-Plus 4-50-2 MG tablet Take 1 tablet by mouth daily. 09/02/2023 Active gabapentin 100 mg oral capsule (20 sources) Anti-epileptic Agent Start: 09-20-2024 take 1 capsule by mouth once daily in the morning Gabapentin 100 mg capsule Active 100 mg PO EVERY MORNING September 20, 2024 12:00am Start: 04-23-2023 take 2 capsules by m outh at bedtime Gabapentin 100 mg capsule Active 200 mg PO AT BEDTIME April 23, 2023 1:00am Start: 04-23-2023 take 200 mg by mouth at bedtim e Gabapentin Active 200 MG PO AT BEDTIME April 23, 2023 1:00am Start: 11-25-2018 End: 10-20-2020 take 2 capsules by mouth once daily Gabapentin 100 mg capsule Discontinued 200 mg PO DAILY November 25, 2018 12:00am October 20, 2020 8:43am Start: 11-25-2018 End: 10-20-2020 take 200 mg by mouth once daily Gabapentin Discontinue d 200 MG PO DAILY November 25, 2018 12:00am October 20, 2020 8:43am take 1 capsule by mo uth every twelve hours as needed gabapentin (NEURONTIN) [...] bromide 0.042 mg/actuat metered dose nasal spray (20 sources) Anticholinergic Start: 04-03-2022 Ipratropium Br omide 42 mcg (0.06 %) spray,non-aerosol Active 2 NMA INTRANASAL NEEDED April 03, 2022 1:00am administer into each nostril Start: 04-03-2022 Ipratropium Br omide Active 2 SPRAY INTRANASAL .q8 April 03, 2022 1:00am administer into each nostril End: 11-13-2023 ipratropium bromide (ATROVEN T) 42 mcg (0.06 %) nasal spray Use 2 Sprays in the nose. 11/13/2023 Discontinued (Discontinued by Patient) Multivitamin With Minerals (Hair,Skin And Nails) tablet (3 sources) Start: 09-07-2024 Multivitamin W ith Minerals (Hair,Skin And Nails) tablet Active 1 {tbl} PO ONCE September 07, 2024 12:00am omeprazole 20 mg delayed release oral capsule (20 sources) Proton Pump Inhibitor Start: 08-06-2024 take 1 capsule by mouth once daily Omeprazole 20 mg capsule,delayed release(DR/EC) Active 20 mg PO daily August 06, 2024 12:00am Start: 04-03-2022 End: 03-17-2024 take 1 capsule by mouth once daily Omeprazole 40 mg capsule,delayed release(DR/EC) Discontinued 40 mg PO DAILY April 03, 2022 1:00am March 17, 2024 12:41pm Start: 10-03-2013 End: 09-01-2017 take 1 capsule by mouth once daily Omeprazole 10 MG capsule Discontinued 10 mg PO DAILY October 03, 2013 12:00am September 01, 2017 4:14pm Start: 08-12-2012 End: 08-24-2014 take 1 tablet by mouth once daily OMEPRAZOLE 40 MG CPDR One tablet by mouth daily OMEPRAZOLE [id number] Mac Bynum MD polyethylene glycol [phone] [id number] mg / potassium chloride 2970 mg / sodium bicarbonate 6740 mg / sodium chloride 5860 mg / sodium sulfate 29380 mg powder for oral solution (1 source) [...] tea-has red raspberry leaf- nettle-oat straw Active terbinafine 250 mg oral tablet (20 sources) Allylamine Antifungal Start: 08-06-2024 End: 09-20-2024 take 1 tablet by mouth once daily Terbinafine Hcl 250 mg tablet Active 250 mg PO daily September 20, 2024 1:37pm Start: 09-09-2023 End: 03-17-2024 take 1 tablet by mouth once daily Terbinafine Hcl 250 mg tablet Discontinued 250 mg PO DAILY September 15, 2023 12:00am March 17, 2024 12:41pm Start: 07-18-2022 End: 04-02-2023 take 1 tablet by mouth once daily Terbinafine 250 MG tablet Take 1 tablet by mouth daily. 07/18/2022 04/02/2023 Discontinued levothyroxine sodium 0.05 mg oral tablet (20 sources) l-Thyroxine Start: 08-12-2012 End: 08-24-2014 take 1 tablet by mouth once daily Levothyroxine 50 MCG tablet Active 50 ug PO DAILY October 03, 2013 12:00am Comment on above: Take 1 tablet by abdulkadir th once daily. 24 hr tolterodine tartrate 4 mg extended release oral capsule (1 source) Cholinergic Muscarinic Antagonist Start: 03-03-2024 take 1 capsule by mouth once daily tolterodine ER (DETROL LA) 4 mg 24 hr capsule Take 1 capsule by mouth once daily. 30 capsule 4 03/03/2024 Active VITAMIN B COMPLEX ORAL (6 sources) VITAMIN [...] 300-30 MG TABS As needed ACETAMINOPHEN-CODEIN E [id number] Mac Bynum MD Start: 08-02-2011 TYLENOL WITH C ODEINE #3 300-30 MG TABS As needed ACETAMINOPHEN-CODEINE [id number] Mac Bynum MD Start: 08-02-2011 TYLENOL WITH C ODEINE #3 300-30 MG TABS As needed ACETAMINOPHEN-CODEINE [id number] Mac Bynum MD acetaminophen 325 mg / HYDROcodone bitartrate 5 mg oral tablet (20 sources) Opioid Agonist Start: 10-05-2013 End: 09-01-2017 Hydrocodone-Acetaminophen 1 TABLET tablet Discontinued 1 - 2 {tbl} PO EVERY 4 HOURS NEEDED as needed for Pain October 05, 2013 12:00am September 01, 2017 4:14pm Start: 10-05-2013 End: 09-01-2017 take 1 tablet by mouth every four hours as needed Hydrocodone-Acetaminophen Discontinued 1 - 2 TABLET PO EVERY 4 HOURS NEEDED October 05, 2013 12:00am September 01, 2017 4:14pm Start: 01-23-2011 take 1 tablet by abdulkadir th at bedtime as needed VICODIN 5-500 MG TABS One tablet by mout h at bedtime. as needed HYDROCODONE-ACETAMINOPHEN [id number] Gali Tidwell Start: 01-23-2011 End: 08-02-2011 take 1 tablet by mouth at bedtime as needed VICODIN 5-500 MG TABS One tablet by mout h at bedtime. as needed HYDROCODONE-ACETAMINOPHEN [id number] Mca Bynum MD acetaminophen 325 mg / oxyCODONE hydrochloride 5 mg oral tablet (8 sources) Opioid Agonist Start: 03-31-2024 End: 04-05-2024 Oxycodone-Acetaminophen (Endocet) 5-325 mg tablet Discontinued 1 {tbl} PO EVERY 6 HOURS as needed for pain 20 5 0 March 31, 2024 April 05, 2024 1:59pm Tear of right rotator cuff Impingement of right shoulder Other specified joint disorders, right shoulder Antiarthritic Combination No.2 (Glucosamine-Chondr oitin) 900 mg tablet (20 sources) Start: 11-05-2021 End: 04-03-2022 take 1 tablet by mouth once daily Antiarthritic Combination No.2 (Glucosamine-Chondroitin) 900 mg tablet Discontinued 900 mg PO DAILY November 05, 2021 12:00am April [...] No.2 (Glucosamine-Chondroitin) 900 mg tablet Discontinued 900 mg PO daily 0 September 01, 2017 12:00am November 25, 2018 11:32am Start: 09-01-2017 End: 11-25-2018 take 1 tablet by mouth once daily Antiarthritic Combination No.2 (Glucosamine-Chondroitin) 900 mg tablet Discontinued 900 mg PO daily September 01, 2017 12:00am November 25, 2018 11:32am Start: 09-01-2017 End: [...] 28, 2021 12:00am November 05, 2021 9:45am Ascorbic Acid-Elderberry Fru it 100-50 mg tablet,chewable (16 sources) Start: 11-05-2021 End: 04-03-2022 Ascorbic Acid-Elderberry Fru it 100-50 mg tablet,chewable Discontinued 2 {tbl} PO DAILY November 05, 2021 9:42am April 03, 2022 9:53am Start: 06-28-2021 End: 11-05-2021 Ascorbic Acid-Elderberry Fru it 100-50 mg tablet,chewable Discontinued {tbl} PO June 28, 2021 12:00am November 05, 2021 9:45am aspirin 81 mg delayed release oral tablet (10 sources) Nonsteroidal Anti-inflammatory Drug Start: 08-02-2011 End: 09-09-2016 take 1 tablet by mouth once daily ASPIRIN EC 81 MG TBEC One tablet by mouth daily ASPIRIN [id number] Mac Bynum MD Start: 08-02-2011 take 1 tablet by abdulkadir th once daily ASPIRIN 81 MG TABS One tablet by mouth daily ASPIRIN [id number] Mac Bynum MD Start: 08-02-2011 take 1 tablet by abdulkadir th once daily ASPIRIN 81 MG TABS One tablet by mouth daily ASPIRIN [id number] Mac Bynum MD benzonatate 100 mg oral capsule (10 sources) Non-narcotic Antitussive Start: 02-14-2023 End: 04-23-2023 take 2 capsules by mouth three times daily as needed for cough Benzonatate 100 mg capsule Discontinued 200 mg PO THREE TIMES A DAY as needed for cough 30 February 14, 2023 1:00am April 23, 2023 2:09pm Start: 02-14-2023 End: 04-23-2023 take 200 mg [...] by mouth twice daily CALCIUM CARBONATE-VITAMIN D [id number] Gali Tidwell End: 10-13-2023 Oyster Shell Calcium w/D 500 -5 MG-MCG tablet Take by mouth daily. 10/13/2023 Discontinued (Medication Reconciliation (suppress cancel msg)) calcium carbonate / vitamin D (3 sources) Start: 01-23-2011 take 1 tablet by mouth twice daily CALCIUM + D 600-200 MG-UNIT TABS One tablet by mouth twice daily CALCIUM CARBONATE-VITAMIN D [id number] Gali Tidwell calcium chloride 0.0014 meq/ml / potassium chloride 0.004 meq/ml / sodium chloride 0.103 meq/ml / sodium lactate 0.028 meq/ml injectable solution (1 source) Start: 12-24-2023 End: 12-24-2023 take 30 mL intravenously every hour 30 mL/hr, INTRAVENOUS, CONTINUOUS, Starting on Fri12/24/23 at 0800, Until Fri12/24/23 at 0852, Preprocedure calcium citrate 950 mg / cholecalciferol 250 unt oral tablet (20 sources) Vitamin D Start: 11-25-2018 End: 04-23-2023 Calcium Citrate-Vitamin D3 (Citracal-D3 Petites) 200 mg calcium -250 unit tablet Discontinued 1 {tbl} PO DAILY November 25, 2018 12:00am April 23, 2023 2:09pm CALCIUM CITRATE-VITAMIN D TABS (8 sources) Start: 08-12-2012 End: 09-09-2016 take 1 tablet by mouth once daily CITRACAL/VITAMIN D TABS One tablet by mouth daily CALCIUM CITRATE-VITAMIN D TABS [id number] Mac Bynum MD Start: 08-12-2012 take 1 tablet by abdulkadir th once daily CITRACAL/VITAMIN D TABS One tablet by mouth daily CALCIUM CITRATE-VITAMIN D TABS [id number] Mac Bynum MD Start: 08-02-2011 take 1 tablet by abdulkadir th twice daily CITRACAL/VITAMIN D TABS One tablet by mouth twice daily CALCIUM CITRATE-VITAMIN D TABS [id number] Mac Bynum MD CALCIUM CITRATE-VITAMIN D TABS (2 sources) Start: 08-12-2012 take 1 tablet by mouth once daily CITRACAL/VITAMIN D TABS One tablet by mouth daily CALCIUM CITRATE-VITAMIN D TABS [id number] Mac Bynum MD Start: 08-02-2011 take 1 tablet by [facility] twice daily CITRACAL/VITAMIN D TABS One tablet by mouth twice daily CALCIUM CITRATE-VITAMIN D TABS [id number] Mac Bynum MD celecoxib 200 mg oral capsule (16 sources) Nonsteroidal Anti-inflammatory Drug Start: 09-15-2023 End: 03-17-2024 take 1 capsule by mouth once daily Celecoxib 200 mg capsule Discontinued 200 mg PO DAILY September 15, 2023 12:00am March 17, 2024 12:41pm chondroitin sulfates 400 mg oral capsule (20 sources) Start: 11-25-2018 End: 10-20-2020 take 1 capsule by mouth once daily Chondroitin Sulfate A Sodium 400 mg capsule Discontinued 400 mg PO DAILY November 25, 2018 12:00am October 20, 2020 8:42am chondroitin sulfates 400 mg / glucosamine hydrochloride 500 mg oral capsule (7 sources) Start: 08-18-2013 End: 11-13-2023 take 1 capsule by mouth once daily glucosamine-chond roitin 500-400 mg capsule Take 1 capsule by mouth once daily. 08/18/2013 11/13/2023 Discontinued (Discontinued by Patient) Start: 08-18-2013 [facility] GLUCOSAMINE-CHONDROITIN CAPS One capsule by mouth daily GLUCOSAMINE-CHONDROITIN CAPS [id number] Mac Bynum MD Comment on above: [facility] citalopram 10 mg oral tablet (17 sources) Serotonin Reuptake Inhibitor Start: 08-10-2024 End: 09-07-2024 take 1 tablet by mouth once daily Citalopram 10 mg tablet Discontinued 10 mg PO daily August 10, 2024 12:00am September 07, 2024 9:28am Start: 02-12-2024 End: 03-17-2024 take 1 tablet by mouth once daily Citalopram 10 mg tablet Discontinued 10 mg PO daily February 13, 2024 1:00am March 17, 2024 12:41pm coenzyme q10 100 mg oral capsule (14 sources) Start: 08-24-2014 End: 09-09-2016 take 1 tablet by mouth once daily COQ-10 CAPS One tablet by mouth daily COENZYME Q10 CAPS [id number] Mac Bynum MD Start: 08-12-2012 End: 08-18-2013 take 1 tablet by mouth once daily CO Q-10 100 MG CAPS One tablet by mouth daily COENZYME Q10 [id number] Mac Bynum MD Start: 08-12-2012 take 1 tablet by abdulkadir th once daily CO Q-10 100 MG CAPS One tablet by mouth daily COENZYME Q10 [id number] Mac Bynum MD Start: 08-12-2012 End: 08-18-2013 take 1 tablet by mouth once daily CO Q-10 100 MG CAPS One tablet by mouth daily COENZYME Q10 [id number] Mac Bynum MD DULoxetine 30 mg delayed release oral capsule (20 sources) Serotonin and Norepinephrine Reuptake Inhibitor Start: 08-06-2022 End: 12-05-2022 take 1 capsule by mouth at bedtime Duloxetine 30 mg capsule,delayed release(DR/EC) Discontinued 30 mg PO AT BEDTIME 7 0 August 06, 2022 12:00am December 05, 2022 3:16pm Start: 08-06-2022 End: 12-05-2022 take 1 capsule by mouth once daily at bedtime Duloxetine 60 mg capsule,delayed release(DR/EC) Discontinued 60 mg PO AT BEDTIME 30 5 August 06, 2022 12:00am December 05, 2022 3:16pm Begin after completing one week course of duloxetine 30mg nightly. ELDERBERRY FRUIT (20 sources) Start: 04-03-2022 End: 04-23-2023 Elderberry Fruit 350 mg caps ule Discontinued mg PO April 03, 2022 1:00am April 23, 2023 2:08pm Start: 04-03-2022 End: 04-23-2023 Elderberry Fruit Discontinue [...] One tablet by mouth daily ESOMEPRAZOLE MAGNESIUM [id number] Mac Bynum MD Start: 01-23-2011 End: 08-12-2012 take 1 tablet by mouth once daily NEXIUM 40 MG CPDR One tablet by mouth daily ESOMEPRAZOLE MAGNESIUM [id number] Gali Tidwell estradiol 2 mg oral tablet (8 sources) Estrogen Start: 01-23-2011 End: 08-02-2011 ESTRING 2 MG RING Take as directed ESTRADIOL [id number] Mac Bynum MD Start: 01-23-2011 End: 08-02-2011 ESTRING 2 MG RING Take as di rected ESTRADIOL [id number] Gali Tidwell 1 ml fentaNYL 0.05 mg/ml injection [...] tablet by mouth daily FLAXSEED (LINSEED) CAPS [id number] Gali Tidwell Start: 01-23-2011 End: 08-12-2012 take 1 tablet by mouth once daily FLAX SEED OIL CAPS One tablet by mouth daily FLAXSEED (LINSEED) CAPS [id number] Mac Bynum MD fluorometholone 1 mg/ml ophthalmic suspension (3 sources) Corticosteroid End: 10-13-2023 take 1 drop(s) into the eye(s) four times daily fluorometholone 0.1 % Suspension ophthalmic suspension 1 drop 4 times daily. 10/13/2023 Discontinued (Medication Reconciliation (suppress cancel msg)) glucosamine hydrochloride 1500 mg oral tablet (20 sources) Start: 11-25-2018 End: 10-20-2020 take 2 tablets by mouth once daily Glucosamine Hcl 1,500 mg tablet Discontinued 3000 mg PO DAILY November 25, 2018 12:00am October 20, 2020 8:43am Start: 11-25-2018 End: 10-20-2020 take 3000 mg by mouth once daily Glucosamine Hcl Discontinued 3000 MG PO DAILY November 25, 2018 12:00am October 20, 2020 8:43am End: 10-13-2023 Glucosamine HCl (GLUCOSAMINE PO) Take by mouth. 10/13/2023 Discontinued krill oil 500 mg oral capsule (20 sources) Start: 09-01-2017 End: 09-08-2017 take 1 capsule by mouth once daily Krill Oil 500 mg capsule Discontinued 500 mg PO daily 0 September 01, 2017 12:00am September 08, 2017 1:24pm Start: 08-12-2012 take 1 tablet by abdulkadir th once daily KRILL OIL CAPS One tablet by mouth daily KRILL OIL CAPS [id number] Mac Bynum MD zrarpjbkih-dukkboq-igqcebloo in (FOLINIC-PLUS) 4-50-2 mg tab (3 sources) End: 02-26-2024 take 1 tablet by mouth once daily pgblrzzfow-pputxpi-nmfukiikdzs (FOLINIC-PLUS) 4-50-2 mg tab Take 1 tablet by mouth once daily. 02/26/2024 Discontinued (Other) take 1 tablet by abdulkadir th once daily myanjhzqub-ubgtich-lngdmjopfbk (FOLINIC- PLUS) 4-50-2 mg tab Take 1 tablet by mouth once daily. Active Fqyrlyscqs-Ogwgirp-Zfydkrukn in (Folinic-Plus) 4-50-2 mg tablet (8 sources) Start: 09-01-2023 End: 02-13-2024 Bcsuksgbwy-Ezbftxq-Mhvukolna in (Folinic-Plus) 4-50-2 mg tablet Discontinued 1 NMA PO DAILY 30 September 01, 2023 12:00am February 13, 2024 11:44am Start: 09-01-2023 End: 02-13-2024 Atzxfoflio-Rhdcpym-Ykzuxhhlv in (Folinic-Plus) 4-50-2 mg tablet Discontinued 1 NMA PO DAILY September 01, 2023 12:00am February 13, 2024 11:44am magnesium (9 sources) Start: 08-12-2012 End: 09-09-2016 take 1 tablet by mouth once daily MAGNESIUM CAPS One tablet by mouth daily MAGNESIUM CAPS [id number] Mac Bynum MD Start: 08-12-2012 take 1 tablet by abdulkadir th once daily MAGNESIUM CAPS One tablet by mouth daily MAGNESIUM CAPS [id number] Mac Bynum MD End: 11-13-2023 MAGNESIUM ORAL Take by mouth once daily. 11/13/2023 Discontinued (Discontinued by Patient) MAGNESIUM ORAL T yessy by mouth once daily. 0 Active Comment on above: Take by mouth once d aily. magnesium gluconate 200 mg oral tablet (10 sources) Start: 03-04-2023 End: 04-23-2023 Magnesium gluconate Discontinued 200 mg PO AT BEDTIME 60 4 March 04, 2023 1:00am April 23, 2023 2:08pm Magnesium gluconate 100 mg 2 tablets orally nightly. magnesium glycinate 100 mg oral tablet (11 sources) Start: 03-17-2024 End: 09-07-2024 Magnesium Glycinate (Mag Glycinate) 100 mg tablet Discontinued 200 mg PO TWICE A DAY March 17, 2024 1:00am September 07, 2024 9:28am MAGNESIUM GLYCIN ATE ORAL Take by mouth. Active magnesium oxide 500 mg oral tablet (20 sources) Start: 07-18-2022 take 1 capsule by mouth at bedtime RA Magnesium 500 MG capsule Take 1 capsule by mouth at bedtime. 07/18/2022 Active Start: 04-03-2022 End: 03-04-2023 take 1 tablet by mouth at bedtime Magnesium Oxide 500 mg tablet Discontinued 500 mg PO AT BEDTIME 30 December 05, 2022 3:20pm March 04, 2023 5:37pm MEDICATION, NON-DATABASE (3 sources) End: 11-13-2023 MEDICATION, NON-DATABASE Yovana nt Blend 11/13/2023 Discontinued (Discontinued by Patient) MEDICATION, NON- DATABASE Joint Blend 0 Active Comment on above: Joint Blend melatonin 5 mg oral tablet (8 sources) Start: 2 End: 3 take 1 tablet by mouth once daily as needed MELATONIN 5 MG TABS One tablet by mouth daily as needed MELATONIN [id number] Mac Bynum MD meloxicam 15 mg oral tablet (20 sources) Nonsteroidal Anti-inflammatory Drug Start: 9 End: take 1 tablet by mouth once daily Meloxicam 15 mg tablet Discontinued 15 mg PO DAILY November 25, 2018 12:00am October 20, 2020 8:44am End: 11-13-2023 MELOXICAM ORAL Take by mouth . 11/13/2023 Discontinued (Discontinued by Patient) MELOXICAM ORAL T yessy by mouth. 0 Active Comment on above: Take by mouth. methylPREDNISolone 4 mg oral tablet (10 sources) Corticosteroid Start: End: take 1 tablet by mouth once Methylprednisolone (Medrol (Denny)) 4 mg tablets,dose pack Discontinued 4 mg PO per package directions 21 6 0 February 14, 2023 1:00am February 19, 2023 1:00am February 20, 2023 1:04am 5 [...] 25, 2018 12:00am October 20, 2020 8:44am Multivitamin tablet (8 sources) Start: 11-25-2018 End: 10-20-2020 Multivitamin tablet Discontinued 1 {tbl} PO DAILY November 25, 2018 12:00am October 20, 2020 8:44am multivitamin with minerals (HAIR,SKIN AND NAILS ORAL) (3 sources) End: 11-13-2023 multivitamin with minerals (HAIR,SKIN AND NAILS ORAL) Take by mouth. 11/13/2023 Discontinued (Discontinued by Patient) multivitamin wit h minerals (HAIR,SKIN AND NAILS ORAL) Take by mouth. 0 Active Comment on above: Take by mouth. Mv,Iron,Min-Folic Acid-Biotin 400-100 mcg tablet (8 sources) Start: 03-17-2024 End: 09-07-2024 Mv,Iron,Min-Folic Acid-Biotin 400-100 mcg tablet Discontinued 1 {tbl} PO DAILY March 17, 2024 1:00am September 07, 2024 9:28am Start: 03-17-2024 Mv,Iron,Min-Fo lic Acid-Biotin 400-100 mcg tablet Active 1 {tbl} PO DAILY March 17, 2024 1:00am naproxen sodium 220 mg oral capsule (20 sources) Nonsteroidal Anti-inflammatory Drug Start: 11-25-2018 End: 10-20-2020 take 1 capsule by mouth twice daily as needed Naproxen Sodium (Aleve) 220 mg capsule Discontinued 220 mg PO TWICE A DAY as needed November 25, 2018 12:00am October 20, 2020 8:44am niacin 100 mg oral tablet (20 sources) Nicotinic Acid Start: 10-20-2020 End: 11-05-2021 take 1 tablet by mouth once daily Niacin 100 mg tablet Discontinued 100 mg PO DAILY October 20, 2020 12:00am November 05, 2021 9:44am [place] 6-Jro-Foz-Fish Oil ([place]-3) 350 mg-235 mg- 90 mg-597 mg capsule,delayed release(DR/EC) (8 sources) Start: 03-17-2024 End: 09-07-2024 [place] 1-Qvh-Upa-Fish Oil ([place]-3) 350 mg-235 mg- 90 mg-597 mg capsule,delayed release(DR/EC) Discontinued 1 NMA PO DAILY March 17, 2024 1:00am September 07, 2024 9:28am Start: 03-17-2024 [place] 3-Dha-Ep a-Fish Oil ([place]-3) 350 mg-235 mg- 90 mg-597 mg capsule,delayed release(DR/EC) Active 1 NMA PO DAILY March 17, 2024 1:00am Potassium (3 sources) End: 11-13-2023 POTASSIUM ORAL Take by mouth once daily. 11/13/2023 Discontinued (Discontinued by Patient) POTASSIUM ORAL T yessy by mouth once daily. 0 Active Comment on above: Take by mouth once d aily. potassium chloride 10 meq extended release oral tablet (20 sources) Start: 08-25-2023 End: 02-13-2024 take 1 tablet by mouth at bedtime Potassium Chloride 10 mEq tablet extended release Discontinued 10 meq PO AT BEDTIME 30 September 01, 2023 2:12pm February 13, 2024 11:45am Start: 12-05-2022 End: 04-23-2023 take 1 tablet by mouth at bedtime Potassium Chloride 10 mEq tablet extended release Discontinued 10 meq PO AT BEDTIME 30 March 11, 2023 10:04am April 23, 2023 2:08pm take 2 tablets by mo uth twice daily potassium chloride 10 MEQ Tab CR tablet ER Take 2 tablets by mouth 2 times daily. Active POTASSIUM (6 sources) Start: 08-18-2013 End: 09-09-2016 take 1 tablet by mouth once daily POTASSIUM 99 MG TABS One tablet by mouth daily POTASSIUM [id number] Mac Bynum MD Start: 08-18-2013 take 1 tablet by abdulkadir th once daily POTASSIUM 99 MG TABS One tablet by mouth daily POTASSIUM [id number] Mac Bynum MD Start: 08-18-2013 take 1 tablet by abdulkadir th once daily POTASSIUM 99 MG TABS One tablet by mouth daily POTASSIUM [id number] Mac Bynum MD pravastatin sodium 20 mg oral tablet (20 sources) HMG-CoA Reductase Inhibitor Start: 10-03-2013 End: 09-01-2017 take 10 mg by mouth at bedtime Pravastatin 20 MG tablet Discontinued 10 mg PO AT BEDTIME October 03, 2013 12:00am September 01, 2017 4:14pm Start: 10-03-2013 End: 09-01-2017 take 10 mg by mouth at bedtime Pravastatin Discontinue d 10 MG PO AT BEDTIME October 03, 2013 12:00am September 01, 2017 4:14pm Start: 08-02-2011 End: 08-24-2014 take 1 tablet by mouth at bedtime PRAVASTATIN SODIUM 20 MG TABS One tablet by mouth at bedtime. PRAVASTATIN SODIUM [id number] Mac Bynum MD psyllium 400 mg oral capsule (20 sources) Start: 10-20-2020 End: 11-05-2021 Psyllium Husk (Daily Fiber) 0.4 gram capsule Discontinued 0.4 g PO DAILY October 20, 2020 12:00am November [...] One tablet by mouth daily RANITIDINE HCL [id number] Mac Bynum MD rOPINIRole 1 mg oral tablet (20 sources) Nonergot Dopamine Agonist Start: 3 End: 4 take 1-2 tablets by mouth once daily Ropinirole 1 mg tablet Discontinued 1 mg PO .COMPLEX 60 1 October 04, 2022 12:45pm December 05, 2022 3:20pm Take 1 to 2 tablets orally nightly Start: 11-05-2021 End: 04-03-2022 take 0.75 mg by mouth at bedtime Ropinirole 0.5 mg tablet Discontinued 0.75 mg PO AT BEDTIME November 05, 2021 9:44am April 03, 2022 10:28am Start: 11-05-2021 End: 04-03-2022 take 0.75 mg by mouth at bedtime Ropinirole Discontinued 0.75 MG PO AT BEDTIME November 05, 2021 9:44am April 03, 2022 10:28am Start: 10-20-2020 End: 11-05-2021 take 1 tablet by mouth at bedtime Ropinirole 0.5 mg tablet Discontinued 0.5 mg PO AT BEDTIME October 20, 2020 12:00am November 05, 2021 9:45am Comment on above: Take 0.5 mg by mouth daily at bedtime. Take 0.5 mg by mouth daily at bedtime. Takes 1 MG by mouth daily traMADol hydrochloride 50 mg oral tablet (6 sources) Opioid Agonist Start: 4 End: 7 take 1 tablet by mouth once daily as needed for muscle spasms TRAMADOL HCL 50 MG TABS One tablet by mouth daily as needed for back spasms TRAMADOL HCL [id number] Mac Bynum MD Turmeric-Turmeric Root Extract (20 sources) Start: End: 5 take 1 capsule by mouth once daily Turmeric-Turmeric Root Extract 450-50 mg capsule Discontinued 1 NMA PO DAILY March 17, 2024 1:00am September 20, 2024 1:37pm Start: 03-17-2024 take 1 capsule by mo uth once daily Turmeric-Turmeric Root Extract 450-50 mg capsule Active 1 NMA PO DAILY March 17, 2024 1:00am Start: 10-20-2020 take 1000 mg by mout h once daily Turmeric Root Extract Active 1000 MG PO DAILY October 20, 2020 8:43am Start: 10-20-2020 End: 04-23-2023 take 1 capsule by mouth once daily Turmeric Root Extract 500 mg capsule Discontinued 1000 mg PO DAILY October 20, 2020 12:00am April 23, 2023 2:08pm Start: 10-20-2020 End: 04-23-2023 take 1000 mg [...] 09-09-2016 TURMERIC CAPS 538mg daily TURMERIC CAPS [id number] Mac Bynum MD TURMERIC ORAL Ta ke by mouth once daily. Active TURMERIC PO Take by mouth 2 times daily. Active TURMERIC ORAL Ta ke by mouth once daily. 0 Active Comment on above: Take by mouth once d aily. Turmeric Root Extract (18 sources) Start: 09-01-2017 End: 11-25-2018 take 538 mg [...] 01, 2017 12:00am November 25, 2018 11:34am Turmeric Root Extract 538 mg capsule (8 sources) Start: 09-01-2017 End: 11-25-2018 take 1 capsule by mouth once daily Turmeric Root Extract 538 mg capsule Discontinued 538 mg PO daily September 01, 2017 12:00am November 25, 2018 11:34am vitamin b 12 0.25 mg oral tablet (8 sources) Vitamin B12 Start: 08-02-2011 End: 09-11-2015 take 1 tablet by mouth once daily VITAMIN B-12 250 MCG TABS One tablet by mouth daily CYANOCOBALAMIN [id number] Mac Bynum MD Vitamin B Complex tablet (8 sources) Start: 03-17-2024 End: 09-20-2024 Vitamin B Complex tablet Discontinued 1 {tbl} PO DAILY March 17, 2024 1:00am September 20, 2024 1:37pm Start: 03-17-2024 Vitamin B Comp delilah tablet Active 1 {tbl} PO DAILY March 17, 2024 1:00am CHOLECALCIFEROL (2 sources) Start: 09-09-2016 take 1 tablet by mouth once daily VITAMIN D 1000 UNIT TABS One tablet by mouth daily CHOLECALCIFEROL [id number] Mac Bynum MD vitamin e 180 mg oral capsule (20 sources) Start: 11-25-2018 End: 04-03-2022 Vitamin E (Dl, Acetate) 400 unit capsule Discontinued 400 U PO DAILY November 25, 2018 12:00am April 03, 2022 9:54am Start: 08-12-2012 End: 09-09-2016 take 1 tablet by mouth once daily VITAMIN E 400 UNIT CAPS One tablet by mouth daily VITAMIN E [id number] Mac Bynum MD VITAMIN E ORAL (3 sources) End: 11-13-2023 VITAMIN E ORAL Take by mouth once daily. 11/13/2023 Discontinued (Discontinued by Patient) VITAMIN E ORAL T yessy by mouth once daily. 0 Active Comment on above: Take by mouth once d aily. Vitamins B1 B6 B12 tablet (8 sources) Start: 10-20-2020 End: 03-17-2024 Vitamins B1 B6 B12 tablet Discontinued 1 {tbl} PO DAILY October 20, 2020 12:00am March 17, 2024 12:38pm Problems Active Problems Problem Classification Problem Date [...] findings in serum] Onset: 3 08-07-2022 Episodic Influenza (12 sources) Influenza due to Influenza A virus; Translations: [Influenza due to other identified influenza virus with other respiratory manifestations] 02-14-2023 Episodic Menopausal disorders (7 sources) Menopausal symptom; Translations: [Menopausal and female climacteric states] Onset: 6 08-05-2005 Chronic Nonmalignant breast conditions (7 sources) Fibrocystic disease of breast; Translations: [Diffuse cystic mastopathy of unspecified breast] Onset: 1 02-03-2011 Chronic Osteoarthritis (20 sources) Arthropathy; Translations: [Primary osteoarthritis, right shoulder] Onset: 5 12-15-2023 Chronic Osteoporosis (20 sources) Osteoporosis; Translations: [Age-related osteoporosis without current pathological fracture] 06-28-2021 Chronic Other acquired deformities (5 sources) Thoracogenic scoliosis, thoracic region; Translations: [Thoracogenic scoliosis] Onset: 3 09-25-2022 Chronic Other acquired deformities (4 sources) Scoliosis of thoracic spine; Translations: [Scoliosis, unspecified] Onset: 3 09-25-2022 Chronic Other acquired deformities (12 sources) Degenerative disorder of musculoskeletal system; Translations: [Other secondary scoliosis, site unspecified] 08-06-2024 Chronic Other acquired deformities (4 sources) Other secondary scoliosis, lumbar region; Translations: [Scoliosis of lumbar region due to degenerative disease of spine in adult] 09-07-2024 Chronic Other acquired deformities (4 sources) Spondylolisthesis; Translations: [Spondylolisthesis, site unspecified] 09-07-2024 Episodic Other acquired deformities (4 sources) Leg length inequality; Translations: [Unequal limb length (acquired), unspecified site] 09-07-2024 Episodic Other aftercare (9 sources) H/O: high risk medication; Translations: [Other termination clerk (current) drug therapy] Onset: 3 08-07-2022 Episodic Other aftercare (7 sources) Patient encounter status; Translations: [Encounter for therapeutic drug level monitoring] Onset: 4 10-13-2023 Episodic Other aftercare (2 sources) Encounter for therapeutic drug level monitoring; Translations: [Encounter for therapeutic drug level monitoring] Onset: 4 Episodic Other aftercare (2 sources) Other correction (current) drug therapy; Translations: [Other correction (current) drug therapy] Onset: 4 Episodic Other aftercare (2 sources) correction (current) use of non-steroidal anti-inflammatories (NSAID); Translations: [correction (current) use of non-steroidal anti-inflammatories (nsaid)] Onset: [...] Onset: 4 Episodic Other connective tissue disease (20 sources) Cramp; Translations: [Cramp and spasm] 04-03-2022 Episodic Other connective tissue disease (14 sources) Cramp and spasm; Translations: [Cramp of limb] 04-03-2022 Episodic Other connective tissue disease (20 sources) Spasm; Translations: [Cramp and spasm] 05-21-2022 [...] Onset: 3 Episodic Other connective tissue disease (20 sources) Adhesive capsulitis of right shoulder; Translations: [Adhesive capsulitis of right shoulder] 05-10-2024 Episodic Other connective tissue disease (19 sources) Tear of right rotator cuff; Translations: [Unspecified rotator cuff tear or rupture of right shoulder, not specified as traumatic] 12-15-2023 Episodic Other connective tissue disease (12 sources) Tear of left rotator cuff; Translations: [Unspecified rotator cuff tear or rupture of left shoulder, not specified as traumatic] 08-10-2024 Episodic Other connective tissue disease (4 sources) Neurogenic claudication; Translations: [Other symptoms and signs involving the nervous system] 09-07-2024 Episodic Other connective tissue disease (1 source) Pain in left foot; Translations: [Pain in left foot] Onset: 5 Episodic Other connective tissue disease (1 source) Pain in right foot; Translations: [Pain in right foot] Onset: 5 Episodic Other diseases of bladder [...] Other hereditary and degenerative nervous system conditions (20 sources) Restless legs; Translations: [Restless legs syndrome] 04-03-2022 Chronic Other hereditary and degenerative nervous system conditions (14 sources) Restless legs syndrome; Translations: [Restless legs syndrome (RLS)] 04-03-2022 Chronic Other injuries and conditions due to external causes (8 sources) Injury of finger of right hand; Translations: [Unspecified injury of right wrist, hand and finger(s), initial encounter] 09-16-2023 Episodic Other lower respiratory disease (2 sources) Dyspnea on exertion; Translations: [Other forms of dyspnea] 09-20-2024 Episodic Other lower respiratory disease (1 source) Other forms of dyspnea; Translations: [Other forms of dyspnea] Onset: 5 Episodic Other nervous system disorders (20 sources) Polyneuropathy; Translations: [Polyneuropathy, unspecified] 04-03-2022 Chronic Other nervous system disorders (14 sources) Polyneuropathy, unspecified; Translations: [Unspecified hereditary and idiopathic peripheral neuropathy] 04-03-2022 Chronic Other nervous system disorders (9 [...] Onset: 3 Episodic Other non-traumatic joint disorders (15 sources) Disorder of shoulder; Translations: [Other specified joint disorders, right shoulder] 10-14-2023 Episodic Other non-traumatic joint disorders (20 sources) Pain in left shoulder; Translations: [Left shoulder pain] Onset: 5 06-24-2024 Episodic Other non-traumatic joint disorders (1 source) Pain in right hip; Translations: [Pain in right hip] Onset: 5 Episodic Other nutritional; endocrine; and metabolic disorders (2 sources) Hypoproteinemia; Translations: [Other disorders of glycoprotein metabolism] Onset: 4 10-13-2023 Chronic Other nutritional; endocrine; and metabolic disorders (2 sources) Other disorders of glycoprotein metabolism; Translations: [Other disorders of glycoprotein metabolism] Onset: 4 Chronic Other skin disorders (8 sources) Callus of heel; Translations: [Corns and callosities] 09-24-2023 Episodic Comment on above: Right Prolapse of female genital organs (1 source) [...] unspecified cervical region] Onset: 3 08-07-2022 Chronic Spondylosis; intervertebral disc disorders; other back problems (20 sources) Neck pain; Translations: [Cervicalgia] Onset: 3 08-07-2022 Episodic Systemic lupus erythematosus and connective tissue disorders [...] sensorineural hearing loss / H90.5(ICD-10) Onset: 7 Unclassified (16 sources) Degeneration of intervertebral disc of lumbar region; Translations: [consult for right lumbar spine injection or ablation] Unclassified (1 source) Low back pain, unspecified; Translations: [Low back pain, unspecified] Onset: 5 Past or Other Problems Problem Classification Problem [...] 09-05-2016 09-05-2016 Episodic Open wounds of extremities (10 sources) Laceration of right ring finger; Translations: [Laceration without foreign body of right ring finger without damage to nail, initial encounter] Onset: 10-23-2023 09-16-2023 Episodic Other aftercare (4 sources) Long-term current use of systemic steroid; Translations: [termination clerk (current) use of systemic steroids] Onset: 04-02-2023 04-02-2023 Episodic Other aftercare (2 sources) termination clerk (current) use of systemic steroids; Translations: [termination clerk (current) use of systemic steroids] Onset: 04-02-2023 [...] Fibromyalgia; Translations: [Fibromyalgia] Onset: 08-07-2022 Episodic Other connective tissue disease (1 source) Adhesive capsulitis of right shoulder; Translations: [Adhesive capsulitis of right shoulder] Onset: 06-21-2024 Episodic Other connective tissue disease (1 source) Unspecified rotator cuff tear or rupture of right shoulder, not specified as traumatic; Translations: [Unspecified rotator cuff tear or rupture of right shoulder, not specified as traumatic] Onset: 06-21-2024 Episodic Other injuries and conditions due to external causes (1 source) Unspecified injury of right wrist, hand and finger(s), initial encounter; Translations: [Unspecified injury of right wrist, hand and finger(s), initial encounter] Onset: 10-23-2023 Episodic Other liver diseases (2 sources) Abnormal levels of other serum enzymes; Translations: [Abnormal levels of other serum enzymes] Onset: 09-25-2022 Episodic Other nervous system disorders (6 sources) Abnormal reflex; Translations: [Abnormal reflex] Onset: 08-07-2022 08-07-2022 Episodic Other non-traumatic joint disorders (16 sources) Pain in right shoulder; Translations: [Right shoulder pain] Onset: 06-21-2024 10-14-2023 Episodic Other non-traumatic joint disorders (1 source) Other specified joint disorders, right shoulder; Translations: [Other specified joint disorders, right shoulder] Onset: 06-21-2024 Episodic Other nutritional; endocrine; and metabolic disorders (5 sources) Hypocalcemia; Translations: [Hypocalcemia] Onset: 09-25-2022 Resolved: 02-14-2024 08-09-2023 Chronic Other screening for suspected conditions (not mental disorders or infectious disease) (2 sources) Encounter for screening for malignant neoplasm of colon; Translations: [Encounter for screening mammogram for malignant neoplasm of breast] Onset: 12-24-2023 Episodic Other skin disorders (1 source) Corns and callosities; Translations: [Corns and callosities] Onset: 10-23-2023 Episodic Courtney-; endo-; and myocarditis; cardiomyopathy (8 sources) Pericardial effusion; Translations: [Pericardial effusion (noninflammatory)] Onset: 01-23-2011 Resolved: 09-05-2016 09-05-2016 Episodic Residual codes; unclassified (1 source) Family history of malignant neoplasm of digestive organs; Translations: [Family history of malignant neoplasm of gastrointestinal tract] Onset: 02-04-2006 Episodic Results Test Name Value Interpretation Reference Range Facility Cardiology Visit Reporton Cardiology Visit Report [facility] [address] [place], [place] [address] OFFICE VISIT Date of Service: 09/20/24 MR#: [id number] Acct: [id number] Name: AYESHA CASTREJON Rep #: [id number] : 1950 Provider: ANGELA pizarro Age/Sex: 73/F Location: [facility] Status: Signed HPI HPI History of Present Illness Details: AYESHA CASTREJON, is a 73-year-old white female who presents to the office today for a cardiovascular follow-up visit. She has a history of palpitations. Her Holter monitor was performed in 2010 at which time she had sinus rhythm with rare PACs and frequent PVCs. She denies chest, arm, jaw, or neck discomfort. She acknowledges occasional palpitations during times of stress or when she needs extra pain medication. She describes this as fluttering. She denies bilateral lower extremity edema. She denies claudication. She states shortness of breath with activity such as walking uphill or steps. She denies shortness of breath at rest, orthopnea, or PND. She denies chronic cough. She denies significant, sudden weight gain. She acknowledges lightheadedness and vertigo. She denies dizziness or syncope. She states near-syncope associated with low blood sugar. This occurs once every few years. She denies blood in urine, blood in stool, or epistaxis. He denies fever with chills. She denies myalgia. She acknowledges mental fatigue since brain surgery in 2009. Her exercise level has remained stable. Intake Vital Signs 08/10/24 13:01 09/20/24 13:31 Height 5 ft 1.5 in 5 ft 1.5 in Weight: 120 lb 125 lb BMI 22.3 23.2 BP 148/84 H Blood Pressure Location Lt brachial Position Sitting Respiration 16 Pulse 69 Pulse Source NIBP Intake Visit Reasons: 1 Y FU Linoleum Tile Layer Required: No Is patient in pain?: No Allergies pseudoephedrine Allergy (Verified 09/20/24 13:35) Rapid Heart rate Medications ???Medication ???Instructions ???Recorded ???Confirmed ???Type levothyroxine 50 mcg tablet 50 mcg PO DAILY 10/03/13 09/20/24 History Prolia 60 mg/mL subcutaneous 60 mg subcut [id number] #1 mL 09/20/24 Rx syringe (denosumab) cholecalciferol (vitamin D3) 25 4,000 unit PO DAILY 04/03/2209/20 History mcg (1,000 unit) tablet ipratropium bromide 42 mcg (0.06 2 spray intranasal PRN 04/03/22 History %) nasal spray gabapentin 100 mg capsule 200 mg PO QHS 04/23/23 09/20/24 Hi story ropinirole 1 mg tablet 1 mg PO QHS #30 tabs 09/01/2306/11 Rx calcium 500 mg tablet 500 mg PO DAILY 03/17/24 09/20/24 History omeprazole 20 mg capsule,delayed 20 mg PO QDAY 08/06/24 09/20/24 Hi story release acetaminophen 500 mg tablet 500 mg PO Q6H PRN 09/07/24 5 History (Tylenol Extra Strength) multivitamin with minerals 1 tab PO ONCE 09/07/24 09/20/24 Hi story (Hair,Skin and Nails tablet) gabapentin 100 mg capsule 100 mg PO QAM 09/20/24 09/20/24 Hi story terbinafine HCl 250 mg tablet 250 mg PO QDAY 08/04/25 08/04/25 H istory Ejection fraction %: 60 Have you fallen in the past year?: No PFSH Medical History (Updated 09/20/24 @ 14:03 by Joseph Hayes 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, 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) Lumbar radiculopathy Neurogenic claudication Foraminal stenosis of lumbar region Spondylolisthesis Leg length discrepancy Scoliosis of lumbar region due to degenerative disease of spine in adult Primary osteoarthritis, left shoulder Left rotator cuff tear Left shoulder pain Adhesive capsulitis of right [...] contraction Premature atrial contractions Surgical History (Updated 09/20/24 @ 13:41 by Layne Joseph) H/O radiofrequency ablation (RFA) of nerve of lumbar spine ( 2023) History of laparoscopic cholecystectomy Hx of basal cell carcinoma excision History of eyelid surgery History of cochlear implant History of vein stripping History of shoulder surgery ( 03/2024) History of tubal ligation History of hysterectomy History of tonsillectomy Family History Father CAD (coronary artery disease) Hx of CABG Mother History of permanent cardiac pacemaker p (more content not included)... Normal [facility] Cerv Spine 4 or 5 Viewson Cerv Spine 4 or 5 Views [facility] [address] [place] [address] Cerv Spine 4 or 5 Views MR#: [id number] Acct: [id number] Name: AYESHA CASTREJON Rep #: [id number] : 1950 F 73 From: Shawn Franklin MD PCP: Dr. Malvin Douglas MD Status: DEP AMB Study: Cerv Spine 4 or 5 Views Date of Exam: 09/07/24 Exam# [id number] Ordering Dr: Mookie Damon MD PROCEDURE: CERV SPINE 4 OR 5 VIEWS 09/07/2024 REASON FOR EXAM: NECK PAIN, RIGHT SIDE TECHNIQUE: CERV SPINE 4 OR 5 VIEWS COMPARISON: Cervical spine radiographs 05/24/2021 FINDINGS: Cervical vertebral body heights are maintained. There is minimal anterolisthesis of C4 on C5 and retrolisthesis of C5 on C6, unchanged. No change in alignment between flexion and extension imaging. There is disc height loss with endplate osteophyte formation and facet and uncovertebral arthrosis which is most pronounced at C5-6. Prevertebral soft tissues are unremarkable. Rounded density projecting over the posterior calvarium is unchanged. Visualized lung jain are clear. RAD/Cerv Spine 4 or 5 Views IMPRESSION: Degenerative changes of the cervical spine are worst at C5-6. No change in alignment on dynamic imaging. Reading Location: [facility] CC: Dr. Mookie Damon MD; Dr. 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 Malvin Douglas MD Status: DEP AMB Study: L/S Spine Bending Flex/Ext Date of Exam: 09/07 Exam# [id number] Ordering Dr: Mookie Damon MD EXAM: XR Lumbosacral Spine Flexion/Extension Only, 2 or 3 Views CLINICAL INDICATION: ONGOING BACK PAIN TECHNIQUE: Lateral flexion/extension views of the lumbar spine and sacrum. COMPARISON: No relevant prior studies available. FINDINGS: VERTEBRAE: Grade 1 anterior spondylolisthesis of L4 over L5. No significant change with flexion or extension. Degenerative facet arthropathy throughout the lumbar spine, most prominent in the lower lumbar spine. No acute fracture. SACRUM/COCCYX: Unremarkable as visualized. No acute fracture. DISC SPACES: Degenerative disc disease throughout the lumbar spine. SOFT TISSUES: Unremarkable. RAD/L/S Spine Bending Flex/Ext IMPRESSION: 1. Grade 1 anterior spondylolisthesis of L4 over L5. No significant change with flexion or extension. 2. Degenerative changes lumbar spine as described. Reading Location: [facility] CC: Dr. Mookie Damon MD; Dr. Malvin Douglas MD Electrical Logging Engineer: Signed Normal [facility] Orthopedic Visit Reporton Orthopedic Visit Report [facility] [address] [place] [address] [place] [address] OFFICE VISIT Date of Service: 09/07/24 MR#: [id number] Acct: [id number] Name: AYESHA CASTREJON Rep #: [id number] : 1950 Provider: Dr. Mookie Damon MD Age/Sex: 73/F Location: [facility] Status: Signed Intake Vital Signs 08/06/24 11:14 08/10/24 13:01 Height 5 ft 1.5 in 5 ft 1.5 in Weight: 120 lb BMI 22.3 Intake Visit Reasons: LUMBAR SPINE Chief Complaint: Lumbar Spine Pain Accompanied by: Self Is patient in pain?: Yes Pain scale (1-10): 4 Allergies pseudoephedrine Allergy (Verified 09/07/24 09:27) Rapid Heart rate Medications ???Medication ???Instructions ???Recorded ???Confirmed ???Type levothyroxine 50 mcg tablet 50 mcg PO DAILY 10/03/13 09/07/24 History Prolia 60 mg/mL subcutaneous 60 mg subcut [id number] #1 mL 09/07/24 Rx syringe (denosumab) cholecalciferol (vitamin D3) 25 4,000 unit PO DAILY 04/03/2209/07 History mcg (1,000 unit) tablet ipratropium bromide 42 mcg (0.06 2 spray intranasal PRN 04/03/22 History %) nasal spray gabapentin 100 mg capsule 200 mg PO QHS 04/23/23 09/07/24 Hi story ropinirole 1 mg tablet 1 mg PO QHS #30 tabs 09/01/2308/18 Rx calcium 500 mg tablet 500 mg PO DAILY 03/17/24 09/07/24 History turmeric 450 mg-turmeric root 1 cap PO DAILY 03/17/24 09/07/24 H istory extract 50 mg capsule vitamin B complex 1 tab PO DAILY 03/17/24 09/07/24 H istory omeprazole 20 mg capsule,delayed 20 mg PO QDAY 08/06/24 09/07/24 Hi story release terbinafine HCl 250 mg tablet mg PO 08/06/24 09/07/24 History acetaminophen 500 mg tablet 500 mg PO Q6H PRN 09/07/24 5 History (Tylenol Extra Strength) multivitamin with minerals 1 tab PO ONCE 09/07/24 09/07/24 Hi story (Hair,Skin and Nails tablet) Have you fallen in the past year?: No PFSH Medical History (Updated 09/07/24 @ 15:[address] Mookie Damon MD) Lumbar radiculopathy Neurogenic claudication Foraminal stenosis of lumbar region Spondylolisthesis Leg length discrepancy Scoliosis of lumbar region due to degenerative disease of spine in adult Primary osteoarthritis, left shoulder Left rotator cuff tear Left shoulder pain Adhesive capsulitis of right [...] smoker alcohol intake: current details: occasional HPI LUMBAR SPINE Details: This documentation accurately reflects the service provided and the decisions made by me, Dr. Mookie Damon MD 09/07/24 0922. Part of today???s visit was documented by Eli Rodriguez ATC and Kerri Vincent RN, acting as scribe. AYESHA CASTREJON is a 73 year old F here today for lumbar spine and hip pain. Patient states the pain started shortly after she had shoulder surgery 03/31/2024. She had right rotator cuff surgery with Dr. Head and she was sitting around during recovery and the back started bothering her a lot. She describes the pain in the right lumbar spine and it wraps around the hip joint into the anterior hip and thigh. She states she has neuropathy and she will get numbness/tingling down the legs. She complains of neck pain in the right side of the neck. She states it feels like there is tape wrapped around her feet and lower legs. She used to walk two miles per day but this has become very difficult to do because of the pain. She walked two miles yesterday and had a difficult time getting back home due to the pa (more content not included)... Normal [facility] Anion gap in Serum or Plasma Ordered By: Malvin Douglas on 09-01-2024 Anion gap [Moles/Vol] 11 mmol/L 07-01 [facility] BUN/creatinine ratioOrdered By: Malvin Douglas on 09-01-2024 Urea nitrogen/Creatinine [Mass ratio] 22.3 mg/mg High 12-06 [facility] Basic Metabolic Profile (BMP )on 09-01-2024 BUN/CRE 22.3 RATIO High - [facility] Comment on above: Order Comment: Order Date: 06/15/24 Order Info: 0667-1 - BMP Order Info: 91053-1 - LIPID Order Info: 57751-9 - MG Order Info: 3016-3 - TSH Order Info: 2498-4 - FE Order Info: 2276-4 - LUIS Order Info: 3024-7 - T4F Performed By: #### L 506.0400, L509.1000, L500.2500, L503.6150, L500.4100, L501.9520, L501.5200, L503.6550 #### [facility] [address] [place], [address] Calcium [Mass/Vol] 8.7 mg/dL Normal 7.6-11.0 [facility] Comment on above: Order Comment: Order Date: 06/15/24 Order Info: 666- - BMP Order Info: 87107-2 - LIPID Order Info: 07290-1 - MG Order Info: 3016-3 - TSH Order Info: 4 - FE Order Info: 4 - LUIS Order Info: 3024-7 - T4F Performed By: #### L 506.0400, L509.1000, L500.2500, L503.6150, L500.4100, L501.9520, L501.5200, L503.6550 #### [facility] [address] [place], [address] Chloride [Moles/Vol] 105 mmol/L Normal 98-108 [facility] Comment on above: Order Comment: Order Date: 06/15/24 Order Info: 666- - BMP Order Info: 45107-4 - LIPID Order Info: 43946-4 - MG Order Info: 3015-3 - TSH Order Info: 2497-05 - FE Order Info: 4 - LUIS Order Info: 3023-7 - T4F Performed By: #### L 506.0400, L509.1000, L500.2500, L503.6150, L500.4100, L501.9520, L501.5200, L503.6550 #### [facility] [address] [place], [address] CO2 [Moles/Vol] 24.4 mmol/L Normal 21.0-32.0 [facility] Comment on above: Order Comment: Order Date: 06/15/24 Order Info: 666-1 - BMP Order Info: 94982-3 - LIPID Order Info: 51281-1 - MG Order Info: 3016-3 - TSH Order Info: 2494 - FE Order Info: 2274 - LUIS Order Info: 3023-08 - T4F Performed By: #### L 506.0400, L509.1000, L500.2500, L503.6150, L500.4100, L501.9520, L501.5200, L503.6550 #### [facility] [address] [place], [place], [phone] (504) Creatinine [Mass/Vol] 0.68 mg/dL Low 0.70-1.20 [facility] Comment on above: Order Comment: Order Date: 06/15/24 Order Info: 666-02 - BMP Order Info: 51290-4 - LIPID Order Info: 93777-9 - MG Order Info: 3015-04 - TSH Order Info: 2497-05 - FE Order Info: 2275-05 - LUIS Order Info: 3023-08 - T4F Performed By: #### L 506.0400, L509.1000, L500.2500, L503.6150, L500.4100, L501.9520, L501.5200, L503.6550 #### [facility] [address] [place], [place], [phone] (655) GAP 11 Normal 5-15 [facility] Comment on above: Order Comment: Order Date: 06/15/24 Order Info: 666-02 - BMP Order Info: 77229-4 - LIPID Order Info: 35522-8 - MG Order Info: 3 - TSH Order Info: 2497-05 - FE Order Info: 2275-05 - LUIS Order Info: 7 - T4F Performed By: #### L 506.0400, L509.1000, L500.2500, L503.6150, L500.4100, L501.9520, L501.5200, L503.6550 #### [facility] [address] [place], [place], [phone] (441) GFR/1.73 sq M.predicted among non-blacks MDRD (S/P/Bld) [Vol rate/Area] 91 mL/min/{1.73_m2} Normal >60 [facility] Comment on above: Order Comment: Order Date: 06/15/24 Order Info: 666-02 - BMP Order Info: 51389-9 - LIPID Order Info: 05660-2 - MG Order Info: 6-3 - TSH Order Info: 24984 - FE Order Info: 2274 - LUIS Order Info: 3024-7 - T4F Result Comment: mL/m in/1.73m2 CKD-EPI Creatinine Equation (2020) Performed By: #### L 506.0400, L509.1000, L500.2500, L503.6150, L500.4100, L501.9520, L501.5200, L503.6550 #### [facility] [address] [place], [place], [phone] Glucose [Mass/Vol] 88 mg/dL Normal 70-99 [facility] Comment on above: Order Comment: Order Date: 06/15/24 Order Info: 666-02 - BMP Order Info: - LIPID Order Info: 51925-5 - MG Order Info: 3 - TSH Order Info: 4 - FE Order Info: 4 - LUIS Order Info: 7 - T4F Performed By: #### L 506.0400, L509.1000, L500.2500, L503.6150, L500.4100, L501.9520, L501.5200, L503.6550 #### [facility] [address] [place], [place], [phone] Potassium [Moles/Vol] 3.8 mmol/L Normal 3.3-5.1 [facility] Comment on above: Order Comment: Order Date: 06/15/24 Order Info: 666-02 - BMP Order Info: 17700-3 - LIPID Order Info: 65999-5 - MG Order Info: 6-3 - TSH Order Info: 2494 - FE Order Info: 2274 - LUIS Order Info: 3024-7 - T4F Performed By: #### L 506.0400, L509.1000, L500.2500, L503.6150, L500.4100, L501.9520, L501.5200, L503.6550 #### [facility] [address] [place], [address] Sodium [Moles/Vol] 140 mmol/L Normal 133-145 [facility] Comment on above: Order Comment: Order Date: 06/15/24 Order Info: 666-02 - BMP Order Info: - LIPID Order Info: 13990-0 - MG Order Info: 3015-3 - TSH Order Info: 2497-05 - FE Order Info: 2275-05 - LUIS Order Info: 7 - T4F Performed By: #### L 506.0400, L509.1000, L500.2500, L503.6150, L500.4100, L501.9520, L501.5200, L503.6550 #### [facility] [address] [place], [address] Urea nitrogen [Mass/Vol] 15 mg/dL Normal 4-19 [facility] Comment on above: Order Comment: Order Date: 06/15/24 Order Info: 666-02 - BMP Order Info: - LIPID Order Info: 64022-9 - MG Order Info: 3 - TSH Order Info: 2497-05 - FE Order Info: 4 - LUIS Order Info: 7 - T4F Performed By: #### L 506.0400, L509.1000, L500.2500, L503.6150, L500.4100, L501.9520, L501.5200, L503.6550 #### [facility] [address] [place], [place], [phone] Calculated very low density lipoprotein (VLDL) cholesterol measurementOrdered By: Malvin Douglas on 09-01-2024 Calculated very low density lipoprotein (VLDL) cholesterol measurement 17 mg/dL 5-40 [facility] Carbon dioxide, total [Moles /volume] in Central venous bloodOrdered By: Malvin Douglas on 09-01-2024 CO2 [Moles/Vol] 24.4 mmol/L 21.0-32.0 [facility] Chloride assayOrdered By: Stewart Douglas on 09-01-2024 Chloride [Moles/Vol] 105 mmol/L 98-108 [facility] Ferritinon 09-01-2024 Ferritin [Mass/Vol] 86 ng/mL Normal 22-378 [facility] Comment on above: Order Comment: Order Date: 06/15/24Order Info: 666-02 - BMPOrder Info: - LIPIDOrder Info: [id number] - MGOrder Info: 3 - TSHOrder Info: 2497-05 - FEOrder Info: 2275-05 - FEROrder Info: 3023-08 - T4F Performed By: #### L 506.0400, L509.1000, L500.2500, L503.6150, L500.4100, L501.9520, L501.5200, L503.6550 ####[facility] [id number] [place], [place], [phone] Glomerular filtration rate ( GFR) estimation/1.73 sq m using serum, plasma, or whole bOrdered By: Malvin Douglas on 09-01-2024 GFR/1.73 sq M.predicted among non-blacks MDRD (S/P/Bld) [Vol rate/Area] 91 mL/min/{1.73_m2} >60 [facility] Comment on above: mL/min/1.73m2 CKD-EP I Creatinine Equation (2020) Ironon 09-01-2024 Iron [Mass/Vol] 103 ug/dL Normal 50-170 [facility] Comment on above: Order Comment: Order Date: 06/15/24Order Info: 666-02 - BMPOrder Info: - LIPIDOrder Info: 70692-5 - MGOrder Info: 3 - TSHOrder Info: 2494 - FEOrder Info: 4 - FEROrder Info: 7 - T4F Performed By: #### L 506.0400, L509.1000, L500.2500, L503.6150, L500.4100, L501.9520, L501.5200, L503.6550 ####[facility] [id number] [place], [place], [phone] Iron measurement (mass/mass) Ordered By: Malvin Douglas on 09-01-2024 Iron (Unsp spec) [Mass/Mass] 103 ug/dL 50-170 [facility] LDL calc ser/plasOrdered By: Malvin Douglas on 09-01-2024 Cholesterol in LDL [Mass/Vol] 157 mg/dL [facility] Comment on above: Gdiwghwako=838-938 m g/dL & Higher Wppw=569 mg/dL or greater Lipid Profileon 09-01-2024 CHOL:HDL 2.61 Normal [facility] Comment on above: Order Comment: Order Date: 06/15/24 Order Info: 0667- - BMP Order Info: 31980-4 - LIPID Order Info: 22519-2 - MG Order Info: 3015-3 - TSH Order Info: 2497-05 - FE Order Info: 2275-05 - LUIS Order Info: 7 - T4F Performed By: #### L 506.0400, L509.1000, L500.2500, L503.6150, L500.4100, L501.9520, L501.5200, L503.6550 #### [facility] [address] [place], [place], [id number] Cholesterol [Mass/Vol] 282 mg/dL High <=200 [facility] Comment on above: Order Comment: Order Date: 06/15/24 Order Info: 0667-1 - BMP Order Info: 36335-3 - LIPID Order Info: 51109-4 - MG Order Info: 3016-3 - TSH Order Info: 2494 - FE Order Info: 2274 - LUIS Order Info: 3023-7 - T4F Result Comment: Chol esterol level, Desirable <200 mg/dL Borderline high cholesterol 200-239 mg/dL High cholesterol >=240 mg/dL Recommendations of the NCEP Adult Treatment Panel for the following risk-cutoff thresholds for the [place] population. Performed By: #### L 506.0400, L509.1000, L500.2500, L503.6150, L500.4100, L501.9520, L501.5200, L503.6550 #### [facility] [address] [place], [address] ( Cholesterol in HDL [Mass/Vol] 108 mg/dL Normal [facility] Comment on above: Order Comment: Order Date: 06/15/24 Order Info: 666-02 - BMP Order Info: - LIPID Order Info: 91277-6 - MG Order Info: 3 - TSH Order Info: 2497-05 Order Info: 2275-05 - LUIS Order Info: 3023-08 T4 Result Comment: Fatmata onal Cholesterol Education Program (NCEP) guidelines: <40 mg/dL: Low HDL-cholesterol (major risk factor for CHD) >= 60 mg/dL: High HDL-cholesterol (negative risk factor for CHD) HDL-cholesterol is affected by a number of factors, e.g. smoking, exercise, hormones, sex and age. Performed By: #### L 506.0400, L509.1000, L500.2500, L503.6150, L500.4100, L501.9520, L501.5200, L503.6550 #### [facility] [address] [place], [address] (806) Cholesterol in LDL [Mass/Vol] 157 mg/dL Normal [facility] Comment on above: Order Comment: Order Date: 06/15/24 Order Info: 666-02 - BMP Order Info: - LIPID Order Info: 69691-3 - MG Order Info: 3015-04 - TSH Order Info: 2497-05 Order Info: 2275-05 - LUIS Order Info: 3023-08 T4 Result Comment: Bord rucqsk=313-036 mg/dL Higher Evyw=577 mg/dL or greater Performed By: #### L 506.0400, L509.1000, L500.2500, L503.6150, L500.4100, L501.9520, L501.5200, L503.6550 #### [facility] [address] [place], [place], [phone] Cholesterol in VLDL [Mass/Vol] 17 mg/dL Normal 5-40 [facility] Comment on above: Order Comment: Order Date: 06/15/24 Order Info: 666-1 - BMP Order Info: 60801-0 - LIPID Order Info: 41044-2 - MG Order Info: 6-3 - TSH Order Info: 2497-05 - FE Order Info: 2275-05 - LUIS Order Info: 7 - T4F Performed By: #### L 506.0400, L509.1000, L500.2500, L503.6150, L500.4100, L501.9520, L501.5200, L503.6550 #### [facility] [address] [place], [address] ( Triglyceride [Mass/Vol] 84 mg/dL Normal [facility] Comment on above: Order Comment: Order Date: 06/15/24 Order Info: 666-02 - BMP Order Info: 34514-6 - LIPID Order Info: 92386-2 - MG Order Info: 3 - TSH Order Info: 2497-05 - FE Order Info: 2275-05 - LUIS Order Info: 7 - T4F Result Comment: The drugs N-Acetylcysteine and Metamizole may falsely depress this assay. Normal range: <150 mg/dL Borderline High: 150-199 mg/dL High: 200-499 mg/dL Very High: >500 mg/dL Performed By: #### L 506.0400, L509.1000, L500.2500, L503.6150, L500.4100, L501.9520, L501.5200, L503.6550 #### [facility] [address] [place], [place], [phone] Magnesiumon 09-01-2024 Magnesium [Mass/Vol] 2.1 mg/dL Normal 1.5-2.2 [facility] Comment on above: Order Comment: Order Date: 06/15/24Order Info: 666-02 - BMPOrder Info: 09464-9 - LIPIDOrder Info: 23558-1 - MGOrder Info: 3016-3 - TSHOrder Info: 2498-4 - FEOrder Info: 2276-4 - FEROrder Info: 3024-7 - T4F Performed By: #### L 506.0400, L509.1000, L500.2500, L503.6150, L500.4100, L501.9520, L501.5200, L503.6550 ####[facility] [id number] [place], [place], [address] Magnesium measurement (mass/ volume)Ordered By: Malvin Douglas on 09-01-2024 Magnesium (Unsp spec) [Mass/Vol] 2.1 mg/dL 1.5-2.2 [facility] PTHINon 09-01-2024 PTH 48 pg/mL Normal 11-61 [facility] Comment on above: Order Comment: Order Date: 06/15/24 Order Info: 0565-1 - PTHIN Performed By: #### L 506.0400, L509.1000, L500.2500, L503.6150, L500.4100, L501.9520, L501.5200, L503.6550 #### [facility] [address] [place], [place], [address] Potassium measurement (mass/ volume)Ordered By: Malvin Douglas on 09-01-2024 Potassium (Unsp spec) [Mass/Vol] 3.8 mmol/L 3.3-5.1 [facility] Screening total cholesterol/ high density lipoprotein (HDL) cholesterol ratioOrdered By: Malvin Douglas on 09-01-2024 Cholesterol.total/Cholest yvonne in HDL [Mass ratio] 2.61 {ratio} [facility] Serum creatinine measurement (mass/volume)Ordered By: Malvin Douglas on 09-01-2024 Creatinine [Mass/Vol] 0.68 mg/dL Low 0.70-1.20 [facility] Serum glucose measurement (m ass/volume)Ordered By: Malvin Douglas on 09-01-2024 Glucose [Mass/Vol] 88 mg/dL 70-99 [facility] Serum or plasma calcium zaid urement (mass/volume)Ordered By: Malvin Douglas on 09-01-2024 Calcium [Mass/Vol] 8.7 mg/dL 7.6-11.0 [facility] Serum or plasma cholesterol in HDL measurement (mass/volume)Ordered By: Malvin Douglas on 09-01-2024 Cholesterol in HDL [Mass/Vol] 108 mg/dL >40 [facility] Comment on above: National Cholesterol Education Program (NCEP) guidelines:<40 mg/dL: Low HDL-cholesterol (major risk factor for CHD)>= 60 mg/dL: High HDL-cholesterol (negative risk factor for CHD)HDL-cholesterol is affected by a number of factors, e.g. smoking, exercise, hormones, sex and age. Serum or plasma cholesterol measurement (mass/volume)Ordered By: Malvin Douglas on 09-01-2024 Cholesterol [Mass/Vol] 282 mg/dL High <201 [facility] Comment on above: Cholesterol level, D esirable <200 mg/dLBorderline high cholesterol 200-239 mg/dLHigh cholesterol >=240 mg/dLRecommendations of the NCEP Adult Treatment Panel for the following risk-cutoff thresholds for the [place] population. Serum or plasma ferritin prashant surement (mass/volume)Ordered By: Malvin Douglas on 09-01-2024 Ferritin [Mass/Vol] 86 ng/mL 22-378 [facility] Serum or plasma urea nitroge n measurement (mass/volume)Ordered By: Malvin Douglas on 09-01-2024 Urea nitrogen [Mass/Vol] 15 mg/dL 4-19 [facility] Sodium levelOrdered By: Ara Douglas on 09-01-2024 Sodium [Moles/Vol] 140 mmol/L 133-145 [facility] T4 Free Directon 09-01-2024 T4 FREE DIRECT 1.50 ng/dL High 0.76-1.46 [facility] Comment on above: Order Comment: Order Date: 06/15/24Order Info: 0667-1 - BMPOrder Info: 24030-3 - LIPIDOrder Info: 59437-4 - MGOrder Info: 3016-3 - TSHOrder Info: 2498-4 - FEOrder Info: 2276-4 - FEROrder Info: 3024-7 - T4F Performed By: #### L 506.0400, L509.1000, L500.2500, L503.6150, L500.4100, L501.9520, L501.5200, L503.6550 ####[facility] [address] [place], [place], [id number] T4 freeOrdered By: Luke Douglas on 09-01-2024 Free T4 [Mass/Vol] 1.50 ng/dL High 0.76-1.46 [facility] TSH DL <= 0.005 mIU/L QnOrde red By: Malvin Douglas on 09-01-2024 TSH Qn 1.480 uIU/mL 0.300-4.20 0 [facility] Thyroid Stim Hormone (TSH)on 09-01-2024 TSH 1.480 uIU/mL Normal 0.300-4.20 0 [facility] Comment on above: Order Comment: Order Date: 06/15/24Order Info: 0667-1 - BMPOrder Info: 91615-9 - LIPIDOrder Info: 89671-8 - MGOrder Info: 3016-3 - TSHOrder Info: 2498-4 - FEOrder Info: 2276-4 - FEROrder Info: 3024-7 - T4F Performed By: #### L 506.0400, L509.1000, L500.2500, L503.6150, L500.4100, L501.9520, L501.5200, L503.6550 ####[facility] [id number] [place], [place], [address] Triglycerides measurementOrd ered By: Malvin Douglas on 09-01-2024 Triglyceride [Mass/Vol] 84 mg/dL <199 [facility] Comment on above: The drugs N-Acetylcy steine and Metamizole may falsely depress this assay. Normal range: <150 mg/dLBorderline High: 150-199 mg/dLHigh: 200-499 mg/dLVery High: >500 mg/dL Vitamin D,25 Hydroxyon 09-01 Vitamin D 25-OH 77.5 ng/mL Normal 30-100 [facility] Comment on above: Order Comment: Order Date: 06/15/24Order Info: 0667-1 - BMPOrder Info: 09790-5 - LIPIDOrder Info: 57584-5 - MGOrder Info: 3016-3 - TSHOrder Info: 2498-4 - FEOrder Info: 2276-4 - FEROrder Info: 3024-7 - T4F Result Comment: Andreea min D Status Deficiency: <20 ng/mL (50nmol/L) Insufficiency: 20-30 ng/mL (50-75 nmol/L) Sufficiency: 30-100 ng/mL (75-250 nmol/L) Toxicity: >100 ng/mL (>250 nmol/L) Performed By: #### L 506.1001 ####[facility] [id number] [place], [address] Orthopedic Visit Reporton Orthopedic Visit Report [facility] [address] [place] [address] OFFICE VISIT Date of Service: 08/10/24 MR#: [id number] Acct: [id number] Name: LUCÍAAYESHA uLca Rep #: [id number] : 1950 Provider: Dr. Nirmal cabrera MD Age/Sex: 73/F Location: [facility] Status: Signed Intake Vital Signs 06/07/24 13:42 08/06/24 11:14 08/10/24 13:01 Height 5 ft 1.5 in 5 ft 1.5 in 5 ft 1.5 in Weight: 120 lb BMI 22.3 Intake Visit Reasons: LEFT SHOULDER Chief Complaint: Left Shoulder MRI review Accompanied by: Self Is patient in pain?: Yes Pain scale (1-10): 1 Allergies pseudoephedrine Allergy (Verified 08/10/24 13:03) Rapid Heart rate Medications ???Medication ???Instructions ???Recorded ???Confirmed ???Type levothyroxine 50 mcg tablet 50 mcg PO DAILY 10/03/13 08/10/24 History Prolia 60 mg/mL subcutaneous 60 mg subcut [id number] #1 mL 08/10/24 Rx syringe (denosumab) cholecalciferol (vitamin D3) 25 4,000 unit PO DAILY 04/03/2208/10 History mcg (1,000 unit) tablet ipratropium bromide 42 mcg (0.06 2 spray intranasal PRN 04/03/22 History %) nasal spray gabapentin 100 mg capsule 200 mg PO QHS 04/23/23 08/10/24 Hi story ropinirole 1 mg tablet 1 mg PO QHS #30 tabs 09/01/2307/19 Rx calcium 500 mg tablet 500 mg PO DAILY 03/17/24 08/10/24 History magnesium glycinate 100 mg (as 200 mg PO BID 03/17/24 08/10/24 Hi story glycinate) tablet (Mag Glycinate) utzvnlikggqv-zfpm-znrbtaf s-folic 1 tab PO DAILY 03/17/24 08/10/24 H istory acid 400 mcg-biotin 100 mcg tablet omega 3 350 mg-dha 235 mg-epa 90 1 cap PO DAILY 03/17/24 08/10/24 H istory mg-fish oil 597 mg capsule,delay rel ([place]-3) turmeric 450 mg-turmeric root 1 cap PO DAILY 03/17/24 08/10/24 H istory extract 50 mg capsule vitamin B complex 1 tab PO DAILY 03/17/24 08/10/24 H istory omeprazole 20 mg capsule,delayed 20 mg PO QDAY 08/06/24 08/10/24 Hi story release terbinafine HCl 250 mg tablet mg PO 08/06/24 08/10/24 History citalopram 10 mg tablet 10 mg PO QDAY 08/10/24 08/10/24 Hi story Have you fallen in the past year?: No PFSH Medical History Primary osteoarthritis, left shoulder Left rotator cuff tear Left shoulder pain Adhesive capsulitis of right [...] made by me, Dr. Nirmal Head MD 08/10/24 8663. Part of today???s visit was documented by [ ], acting as scribe. AYESHA CASTREJON is a 73 year old F here today for follow-up left shoulder MRI results. The pain today is not too bad. No nighttime symptoms. Some slight discomfort with full forward elevation. The patient actually wants to prioritize the back with a plan to see Dr. Godinez next month. Supplemental Info [facility] Imaging Services [address] [place], [place] [address] Upper Ext Joint Only(Routine) MR#: [id number] Acct: [id number] Name: AYESHA CASTREJON Rep #: [id number] : 1950 F 73 From: Elvis Todd MD PCP: Dr. Malvin Douglas MD Status: REG CLI Study: Upper Ext Joint (more content not included)... Normal [facility] HIP, UNI W/ Pelvis 2-3 Views on 08-06-2024 HIP, UNI W/ Pelvis 2-3 Views [facility] Imaging Services [address] [place] [address] HIP, UNI W/ Pelvis 2-3 Views MR#: [id number] Acct: [id number] Name: AYESHA CASTREJON Rep #: [id number] : 1950 F 73 From: Elvis downey MD PCP: Dr. Malvin Douglas MD Status: DEP AMB Study: HIP, UNI W/ Pelvis 2-3 Views Date of Exam: Exam# [id number] Ordering Dr: Aramis Rivera DO PROCEDURE: HIP, UNI W/ PELVIS 2-3 VIEWS 08/06/2024 REASON FOR EXAM: PAIN TECHNIQUE: HIP, UNI W/ PELVIS 2-3 VIEWS COMPARISON: None. FINDINGS: Mild osteopenia of the visualized bones. Degenerative joint disease. No fracture or dislocation is seen. No lytic or blastic bone lesion is noted. RAD/HIP, UNI W/ Pelvis 2-3 Views IMPRESSION: No evidence for acute abnormality. Reading Location: [place] [address] CC: Dr. Malvin Douglas MD; Dr. Aramis Rivera DO Electrical Logging Engineer: Signed Normal [facility] Lumbar Spine 2 or 3 Viewson 08-06-2024 Lumbar Spine 2 or 3 Views [facility] Imaging Services [address] [place], [place] [address] Lumbar Spine 2 or 3 Views MR#: [id number] Acct: [id number] Name: AYESHA CASTREJON Rep #: [id number] : 1950 F 73 From: Elvis downey MD PCP: Dr. Malvin Douglas MD Status: DEP AMB Study: Lumbar Spine 2 or 3 Views Date of Exam: Exam# [id number] Ordering Dr: Aramis Rivera DO PROCEDURE: LUMBAR SPINE 2 OR 3 VIEWS 08/06/2024 REASON FOR EXAM: PAIN TECHNIQUE: LUMBAR SPINE 2 OR 3 VIEWS COMPARISON: MRI of the lumbar spine on 05/23/2023. FINDINGS: Grade 1 anterolisthesis of L5 on S1. Grade 1 anterolisthesis of L4 on L5. Mildly exaggerated lumbar lordosis. There are diffuse spondylotic changes. Findings are demonstrated to by diffuse disc space narrowing, osteophyte formation and degenerative endplate sclerosis There is diffuse facet joint arthropathy with secondary bilateral neural foramina narrowing. No fracture or dislocation is seen. No aggressive lytic or blastic bony lesion is noted. RAD/Lumbar Spine 2 or 3 Views IMPRESSION: Spondylosis. Findings have mildly progressed. Reading Location: [place] [address] CC: Dr. Malvin Douglas MD; Dr. Aramis Rivera DO Electrical Logging Engineer: Signed Normal [facility] Magnetic resonance imaging r eportOrdered By: Elvis Todd on 08-06-2024 Study report [facility] Imaging Services [address] [place], [place] [id number] Upper Ext Joint Only(Routine) MR#: [id number] Acct: [id number] Name: AYESHA CASTREJON Rep #: [id number] : 1950 F 73 From: Helen Todd MD PCP: Dr. Malvin Douglas MD Status: REG CLI Study:Upper Ext Joint Only(Routine) Date of Exam: 08/05/24 Exam# [id number] Ordering Dr: Nirmal Head MD PROCEDURE: UPPER EXT JOINT ONLY(ROUTINE) 08/05/2024 REASON FOR EXAM: PAIN, CUFF TEAR? TECHNIQUE: UPPER EXT JOINT ONLY(ROUTINE) Multiplanar and multisequence images were obtained without IV contrast administration. COMPARISON: COMPARISON : CR report dated 06-25-2024 FINDINGS: There is widening of the AC joint space with no obvious related marrow edema. Diagnostic possibilities include sequel of old/chronic distal clavicular resorption versus dissociation to the AC joint Thickening and intrasubstance high PD FS WI signal of the supraspinatus tendon reaching its articular surface with no complete partial fibers interruption. Intrasubstance high signal of the subscapularis tendon with no evidence of complete fibers interruption. The teres minor and infraspinatus tendon appears intact. Intact long head of biceps tendon. Fluid signal distending its sheath. No obvious glenoid labral tears. Marginal lipping of the glenohumeral articular surface. Moderate glenohumeral joint effusion Fluid signal distending the subcoracoid and subacromial/subdeltoid bursa. Focal cortical irregularities and subcortical pseudocysts of the humeral head/greater tuberosity. No marrow infiltrative lesions. The neurovascular bundles appear unremarkable. MRI/Upper Ext Joint Only(Routine) IMPRESSION: Widening of the AC joint space. Supraspinatus tendonitis with partial thickness tear. Subscapularis tendonitis. Glenohumeral degenerative arthropathy with moderate joint effusion & subcoracoidand subacromial/subdeltoid bursitis. [facility] CC: Dr. Malvin Douglas MD; Dr. Nirmal Head MD ~ Electrical Logging Engineer: Signed [facility] Orthopedic Visit Reporton Orthopedic Visit Report [facility] [address] [place] [address] OFFICE VISIT Date of Service: 08/06/24 MR#: [id number] Acct: [id number] Name: AYESHA CASTREJON Rep #: [id number] : 1950 Provider: Dr. Aramis szymanski DO Age/Sex: 73/F Location: [facility] Status: Signed Intake Vital Signs 06/07/24 13:42 08/06/24 11:14 Height 5 ft 1.5 in 5 ft 1.5 in Weight: 123 lb 6 oz BMI 22.9 Intake Visit Reasons: RIGHT HIP Accompanied by: Self Allergies pseudoephedrine Allergy (Verified 08/06/24 11:17) Rapid Heart rate Medications ???Medication ???Instructions ???Recorded ???Confirmed ???Type levothyroxine 50 mcg tablet 50 mcg PO DAILY 10/03/13 08/06/24 History Prolia 60 mg/mL subcutaneous 60 mg subcut [id number] #1 mL 08/06/24 Rx syringe (denosumab) cholecalciferol (vitamin D3) 25 4,000 unit PO DAILY 04/03/2208/06 History mcg (1,000 unit) tablet ipratropium bromide 42 mcg (0.06 2 spray intranasal PRN 04/03/22 History %) nasal spray gabapentin 100 mg capsule 200 mg PO QHS 04/23/23 08/06/24 Hi story ropinirole 1 mg tablet 1 mg PO QHS #30 tabs 09/01/2307/19 Rx calcium 500 mg tablet 500 mg PO DAILY 03/17/24 08/06/24 History magnesium glycinate 100 mg (as 200 mg PO BID 03/17/24 08/06/24 Hi story glycinate) tablet (Mag Glycinate) umuzrozqppdv-dalb-tazfikp s-folic 1 tab PO DAILY 03/17/24 08/06/24 H istory acid 400 mcg-biotin 100 mcg tablet omega 3 350 mg-dha 235 mg-epa 90 1 cap PO DAILY 03/17/24 08/06/24 H istory mg-fish oil 597 mg capsule,delay rel ([place]-3) turmeric 450 mg-turmeric root 1 cap PO DAILY 03/17/24 08/06/24 H istory extract 50 mg capsule vitamin B complex 1 tab PO DAILY 03/17/24 08/06/24 H istory omeprazole 20 mg capsule,delayed 20 mg PO QDAY 08/06/24 08/06/24 Hi story release terbinafine HCl 250 mg tablet mg PO 08/06/24 08/06/24 History Have you fallen in the past [...] alcohol intake: current details: occasional HPI RIGHT HIP Details: This documentation accurately reflects the service provided and the decisions made by me, Dr. Aramis Rivera, DO 08/06/24 0802. Part of today???s visit was documented by Patti RAMSEY, acting as scribe. AYESHA CASTREJON is a 73 year old F new to me established with the practice with medical history significant for but not limited to polyneuropathy on gabapentin, osteoporosis ,hypothyroid, history of malignant neoplasm of colon and kidney, pericardial effusion, brain tumor, GERD, degenerative disc disease, here today for right hip pain that she has been having since after her shoulder surgery in March but worsened in June. She states that her pain is in the right side of her lower back and radiates around her glute into her right anterior thigh, there is some groin pain but not the worst. The thigh pain stops at the knee and does not radiate any further down the leg. Denies numbness, tingling or other associated symptoms. Of note she states it feels just like her left side prior to her ablation surgery which resolved her pain . she has seen Dr. Ferrara who did an ablation on her left side when she was having similar symptoms which helped but nothing on the right side. She did do stretches/exercises at home for 2 weeks t (more content not included)... Normal [facility] Upper Ext Joint Only(Routine )on 08-05-2024 Upper Ext Joint Only(Routine) [facility] Imaging Services [address] [place], [place] [id number] Upper Ext Joint Only(Routine) MR#: [id number] Acct: [id number] Name: AYESHA CASTREJON Rep #: [id number] : 1950 F 73 From: Elvis downey MD PCP: Dr. Malvin Douglas MD Status: REG CLI Study: Upper Ext Joint Only(Routine) Date of Exam: 0 08/05/24 Exam# [id number] Ordering Dr: Nirmal Head MD PROCEDURE: UPPER EXT JOINT ONLY(ROUTINE) 08/05/2024 REASON FOR EXAM: PAIN, CUFF TEAR? TECHNIQUE: UPPER EXT JOINT ONLY(ROUTINE) Multiplanar and multisequence images were obtained without IV contrast administration. COMPARISON: COMPARISON : CR report dated 06-25-2024 FINDINGS: There is widening of the AC joint space with no obvious related marrow edema. Diagnostic possibilities include sequel of old/chronic distal clavicular resorption versus dissociation to the AC joint Thickening and intrasubstance high PD FS WI signal of the supraspinatus tendon reaching its articular surface with no complete partial fibers interruption. Intrasubstance high signal of the subscapularis tendon with no evidence of complete fibers interruption. The teres minor and infraspinatus tendon appears intact. Intact long head of biceps tendon. Fluid signal distending its sheath. No obvious glenoid labral tears. Marginal lipping of the glenohumeral articular surface. Moderate glenohumeral joint effusion Fluid signal distending the subcoracoid and subacromial/subdeltoid bursa. Focal cortical irregularities and subcortical pseudocysts of the humeral head/greater tuberosity. No marrow infiltrative lesions. The neurovascular bundles appear unremarkable. MRI/Upper Ext Joint Only(Routine) IMPRESSION: Widening of the AC joint space. Supraspinatus tendonitis with partial thickness tear. Subscapularis tendonitis. Glenohumeral degenerative arthropathy with moderate joint effusion subcoracoid and subacromial/subdeltoid bursitis. Reading Location: [place] [address] CC: Dr. Malvin Douglas MD; Dr. 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 Normal [facility] Orthopedic Visit Reporton Orthopedic Visit Report [facility] [address] [place] [address] OFFICE VISIT Date of Service: 06/24/24 MR#: [id number] Acct: [id number] Name: LUCÍAAYESHA M Rep #: [id number] : 1950 Provider: Dr. Nirmla cabrera MD Age/Sex: 73/F Location: [facility] Status: Signed Intake Vital Signs 06/07/24 13:42 [...] Prolia 60 mg/mL subcutaneous 60 mg subcut [id number] #1 mL 06/24/24 Rx syringe (denosumab) cholecalciferol [...] 06/24/24 Hi story glycinate) tablet (Mag Glycinate) qtgugwoqpdrj-jafn-unfvbmr s-folic 1 tab PO DAILY 03/17/24 06/24/24 H istory acid 400 mcg-biotin 100 mcg tablet omega 3 350 mg-dha 235 mg-epa 90 1 cap PO DAILY 03/17/24 06/24/24 H istory mg-fish oil 597 mg capsule,delay rel ([place]-3) turmeric 450 mg-turmeric root 1 cap PO [...] an MRI (more content not included)... Normal [facility] Shoulder min 2 Viewson 06-24 Shoulder min 2 Views [facility] Imaging Services [address] [place], [place] [address] Shoulder min 2 Views MR#: [id number] Acct: [id number] Name: AYESHA CASTREJON Rep #: [id number] : 1950 F 73 From: Lewis Watson i, MD PCP: Dr. Malvin Douglas MD Status: DEP AMB Study: Shoulder min 2 Views Date of Exam: 06/24/24 Exam# [id number] Ordering Dr: Nirmal Head MD PROCEDURE: SHOULDER [...] rheumatoid arthritis, scleroderma etcetera. Correlate clinically. May Reading Location: [place] CC: Dr. Malvin Douglas MD; Dr. 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 Normal [facility] Orthopedic Visit Reporton Orthopedic Visit Report [facility] [address] [place] [address] [address] [place] [address] OFFICE VISIT Date of Service: 06/07/24 MR#: [id number] Acct: [id number] Name: AYESHA CASTREJON Rep #: [id number] : 1950 Provider: Dr. Nirmal cabrera MD Age/Sex: 73/F Location: [facility] Status: Signed Intake Vital Signs 05/10/24 12:51 [...] Prolia 60 mg/mL subcutaneous 60 mg subcut [id number] #1 mL 06/07/24 Rx syringe (denosumab) cholecalciferol (vitamin D3) 25 4,000 unit PO DAILY 04/03/2206/07 History mcg (1,000 unit) tablet ipratropium bromide 42 mcg (0.06 2 spray intranasal PRN 04/03/22 History %) nasal spray gabapentin 100 mg capsule 200 mg PO QHS 04/23/23 06/07/24 Hi story ropinirole 1 mg tablet 1 mg PO QHS #30 tabs 09/01/2305/19 Rx calcium 500 mg tablet 500 mg PO DAILY 03/17/24 06/07/24 History magnesium glycinate 100 mg (as 200 mg PO BID 03/17/24 06/07/24 Hi story glycinate) tablet (Mag Glycinate) flfwmqikgrmy-xqxa-gjslasq s-folic 1 tab PO DAILY 03/17/24 06/07/24 H istory acid 400 mcg-biotin 100 mcg tablet omega 3 350 mg-dha 235 mg-epa 90 1 cap PO DAILY 03/17/24 06/07/24 H istory mg-fish oil 597 mg capsule,delay rel ([place]-3) turmeric 450 mg-turmeric root 1 cap PO [...] by me, Dr. Nirmal Head MD 06/07/24 3400. Part of today???s visit was documented by [...] distress Ne (more content not included)... Normal [facility] Orthopedic Visit Reporton Orthopedic Visit Report [facility] [address] [place] [address] [address] [place] [address] OFFICE VISIT Date of Service: 05/10/24 MR#: [id number] Acct: [id number] Name: AYESHA CASTREJON Rep #: [id number] : 1950 Provider: Dr. Nirmal cabrera MD Age/Sex: 73/F [facility] Status: Signed Intake Vital Signs 03/31/24 10:16 [...] Prolia 60 mg/mL subcutaneous 60 mg subcut [id number] #1 mL 05/10/24 Rx syringe (denosumab) cholecalciferol (vitamin D3) 25 4,000 unit PO DAILY 04/03/2205/10 History mcg (1,000 unit) tablet ipratropium bromide 42 mcg (0.06 2 spray intranasal PRN 04/03/22 History %) nasal spray gabapentin 100 mg capsule 200 mg PO QHS 04/23/23 05/10/24 Hi story ropinirole 1 mg tablet 1 mg PO QHS #30 tabs 09/01/23/06/11 Rx calcium 500 mg tablet 500 mg PO DAILY 03/17/24 05/10/24 History magnesium glycinate 100 mg (as 200 mg PO BID 03/17/24 05/10/24 Hi story glycinate) tablet (Mag Glycinate) sqfiwoowqnih-mtzs-upxtkni s-folic 1 tab PO DAILY 03/17/24 05/10/24 H istory acid 400 mcg-biotin 100 mcg tablet omega 3 350 mg-dha 235 mg-epa 90 1 cap PO DAILY 03/17/24 05/10/24 H istory mg-fish oil 597 mg capsule,delay rel ([place]-3) turmeric 450 mg-turmeric root 1 cap PO [...] provided medicatio (more content not included)... Normal [facility] Orthopedic Visit Reporton Orthopedic Visit Report [facility] [address] [place] [address] OFFICE VISIT Date of Service: 04/13/24 MR#: [id number] Acct: [id number] Name: AYESHA CASTREJON Rep #: [id number] : 1950 Provider: Dr. Nirmal cabrera MD Age/Sex: 73/F Location: [facility] Status: Signed Intake Vital Signs 12/12/23 11:28 [...] Prolia 60 mg/mL subcutaneous 60 mg subcut [id number] #1 mL 04/13/24 Rx syringe (denosumab) cholecalciferol [...] 04/13/24 Hi story glycinate) tablet (Mag Glycinate) opdhruixkqag-xrxp-egzkcop s-folic 1 tab PO DAILY 03/17/24 04/13/24 H istory acid 400 mcg-biotin 100 mcg tablet omega 3 350 mg-dha 235 mg-epa 90 1 cap PO DAILY 03/17/24 04/13/24 H istory mg-fish oil 597 mg capsule,delay rel ([place]-3) turmeric 450 mg-turmeric root 1 cap PO [...] by me, Dr. Nirmal Head MD 04/13/24 0796. Part of today???s visit was documented by [...] Yes healed (more content not included)... Normal [facility] [place] Inital Evaluation (1) - PTon 04-12-2024 Inital Evaluation (1) - PT [facility] Physical Therapy [facility] [address] [place] [address]. [address] [place] [address] / REHABILITATION SERVICES INITIAL EVALUATION MR#: [id number] Acct: [id number] Name: AYESHA CASTREJON Rep #: [id number] : 1950 73 From: Kg Lockett DPT Referring Dr.: Dr. Nirmal Head MD Status: R EG RCR Insurance: MEDICARE PART A B ANTHEM Patient's Visit Information Visit Information Visit Information: AYESHA CASTREJON is a 73 year old F referred to Physical Therapy by Dr. Nirmal Head MD with a diagnosis of R RTC repair, DOS: 03/31/24. Date of Evaluation: 04/12/24 Physical Therapist: gK Lockett DPT Visit Plan Frequency: 2-3x /Week [...] to be FAXED BACK to us at [phone] for Medicare purposes. For Medicare only, by signing this I certify the plan of care. Please let me know if there are questions or concerns regarding this plan of care. Physician Signature: Date: _ 04/12/241809 CC: Dr. Malvin Douglas MD; Dr. Nirmal Head MD CLS Signed Normal [facility] Orthopedic Visit Reporton Orthopedic Visit Report [facility] [address] [place] [address] [address] [place] [address] OFFICE VISIT Date of Service: 04/05/24 MR#: [id number] Acct: [id number] Name: AYESHA CASTREJON Rep #: [id number] : 1950 Provider: Dr. Nirmal cabrera MD Age/Sex: 73/F Location: [facility] Status: Signed Intake Vital Signs 12/12/23 11:28 [...] Prolia 60 mg/mL subcutaneous 60 mg subcut [id number] #1 mL 04/05/24 Rx syringe (denosumab) cholecalciferol [...] 04/05/24 Hi story glycinate) tablet (Mag Glycinate) gbewhahcqjdi-xiuo-gvfzfhn s-folic 1 tab PO DAILY 03/17/24 04/05/24 H istory acid 400 mcg-biotin 100 mcg tablet omega 3 350 mg-dha 235 mg-epa 90 1 cap PO DAILY 03/17/24 04/05/24 H istory mg-fish oil 597 mg capsule,delay rel ([place]-3) turmeric 450 mg-turmeric root 1 cap PO [...] General G (more content not included)... Normal [facility] Discharge Instructionon 03-20 Discharge Instruction [facility] Medical Records Department [address] [place] [address] Instructions for Home/Discharge Instructions 03/31/24 1503 MR#: [id number] Acct: [id number] Name: AYESHA CASTREJON Rep #: [id number] : 1950 73 From: Nirmal Head MD PCP: Dr. Malvin Douglas MD Status:REG [facility] Discharge Instructions Diet Discharge Diet: No restrictions [...] Consulting Providers: Catarino Connell Instructions Print Language: Georgian Discharge Orders/Prescriptions Prescriptions: New oxycodone-acetaminophen [Endocet] 5-325 [...] 400-100 mcg tablet 1 tab PO DAILY [place]-3 350 mg-235 mg- 90 mg-597 mg capsule,delayed release(DR/EC) 1 cap PO DAILY calcium 500 mg tablet 500 mg PO DAILY Mag Glycinate 100 mg tablet 200 mg PO BID turmeric-turmeric root extract 450-50 mg capsule 1 cap PO DAILY Prolia 60 mg/mL syringe 60 mg SC C8DILNAE Qty: 1 1RF Referrals / Follow Up: Malvin Douglas MD [Primary Care Provider] - Nirmal Head MD [Med Staff - Active Staff] - Disposition Disposition (needs filled in before D/C Order can be placed): Home, Self Care 03/31/24 3745 Nirmal Head MD CC: Dr. Catarino Connell MD; Dr. Malvin Douglas MD Signed [facility] MR/POSTOP.Jasmin 03-31-2024 MR/POSTOP.[facility] Medical Records Department [address] [place] [address] Anesthesia Postop Eval I 03/31/24 1508 MR#: [id number] Acct: [id number] Name: AYESHA CASTREJON Rep #: [id number] : 1950 73 From: Emanuel Elder CRNA PCP: Dr. Malvin Douglas MD Status:REG SD Y Race: C Location: [place] [address] Anesthesia: Postop Eval I Current Vital Signs [...] completed: Yes 03/31/24 1509 Date Emanuel Elder ANHYDROUS AMMONIA PRODUCTION SUPERVISOR Cosigner Signature: Date CC: Signed Normal [facility] MR/XVMKLHMS9he 03-31-2024 /[facility] Medical Records Department [address] [place] [address] Anesthesia Postop Eval II 03/31/24 1557 MR#: [id number] Acct: [id number] Name: AYESHA CASTREJON Rep #: [id number] : 1950 73 From: Miah May MD PCP: Dr. Malvin Douglas MD Status:REG [facility] Y Race: C Location: [place] [address] Anesthesia Postop Eval I Sum Postop Eval Completion status Anesthesia document: Postop Eval 1 completed: Yes Anesthesia Postop Eval I Summary Anesthesia Postop Eval I Summary: Anesthesia Postop Eval I: Assessment Summary Airway patent Yes 03/31/24 15:09 ANHYDROUS AMMONIA PRODUCTION SUPERVISOR.JRIV Spontaneous unlabored Yes 03/31/24 15:09 ANHYDROUS AMMONIA PRODUCTION SUPERVISOR.JRIV respirations Mental status Awake,Calm 03/31/24 15:09 ANHYDROUS AMMONIA PRODUCTION SUPERVISOR.JRIV nausea No 03/31/24 15:09 ANHYDROUS AMMONIA PRODUCTION SUPERVISOR.JRIV Vomiting No 03/31/24 15:09 ANHYDROUS AMMONIA PRODUCTION SUPERVISOR.JRIV Anesthesia Postop Eval I: Fluid Summary Crystalloid volume administer 1,000 03/31/24 15:09 ANHYDROUS AMMONIA PRODUCTION SUPERVISOR.JRIV (ml) Colloids volume administered ( ml) Blood Product volume administered (ml) Total IV fluid infused 1,000 03/31/24 15:09 ANHYDROUS AMMONIA PRODUCTION SUPERVISOR.JRIV Anesthesia Postop Eval I: Summary Notes Anesthesia Complication No 03/31/24 15:09 ANHYDROUS AMMONIA PRODUCTION SUPERVISOR.JRIV Anesthesia Complication Comment: Post-operative progress note Anesthesia: Postop Eval II Evaluation Mental status: Awake Pain Level: 0 nausea: No Vomiting: No 03/31/24 1558 Date Miah Fletcher Signature: Date CC: Signed Normal [facility] Operative Reporton 5 Operative Report [facility] Medical Records Department [address] [place] [address] Operative Report 03/31/24 1456 MR#: [id number] Acct: [id number] Name: LUCÍAAYESHA M Rep #: [id number] : 1950 73 From: Nirmal Head MD PCP: Dr. Malvin Douglas MD Status:[facility] Location: [place] [address] Problems Associated Problem List Diagnoses (1) Right rotator cuff tear: (2) Impingement of right shoulder: Procedures Musculoskeletal 20xxx-29xxx: Other Procedure See Report Operative Report (Standard) Operative Information Date of Procedure: 03/31/24 Pre-Operative Diagnosis: Right shoulder impingement syndrome and rotator cuff tear Post-Operative Diagnosis: Same Surgery/Procedure Performed: Right shoulder arthroscopy, subacromial decompression, rotator cuff repair carry in worker: Yes Secretary Of Police: car Tasks completed by sociology research assistant: Retracting Additional clothing sales assistant?: No Type of Anesthesia: Block,Regional and [...] and using the knotless mechanism created a niup-rz-tfya repair with 2 sutures. I then took [...] elbow exercises 4 times a day. cpt 83467, [address]51 Surgical Findings: As above. Complications Complications: No Admit VTE Documentation VTE Present on Admission: No VTE Mechan Device Prophylaxis: SCD's VTE Pharm Prophylaxis ordered?: No Reason prophylaxis not ordered: Treatment Not Indicated 03/31/24 1501 Cosigner Signature (if applicable): CC: Dr. Catarino Connell MD; Dr. Malvin Douglas MD; Dr. Nirmal Head MD Signed Normal [facility] Thyroid Peroxidase ABon 02-0 THYR PEROX AB 10 IU/mL Normal 0-34 [facility] Comment on above: Order Comment: PER I NTERFACE COMMENT-AMAB Result Comment: Perf ormed at: - [facility] [address] [id number] [employer]: Adam Regalado PhD, Phone: [phone] Performed By: #### L 9032.8791 ####[facility] [address] [place], [address] 12 Lead EKGon 01-31-2025 12 Lead EKG [facility] Cardiovascular Services [address] [place] [address] 12 Lead EKG 03/19/24 0844 MR#: [id number] Acct: [id number] Name: AYESHA CASTREJON Rep #: [id number] : 1950 73 From: Panfilo Lyon MD Attending Dr: Dr. Nirmal Head MD Status: MT E SDC Ordering Dr: Catarino Connell MD Date: 03/19/24 Location: [facility] Sex: F C Admitted: Test Reason : PREOP Blood Pressure : */* mmHG Vent. Rate : 67 BPM Atrial Rate : 67 BPM P-R Int : 172 ms QRS Dur : 84 ms QT Int : 406 ms P-R-T Axes : 59 22 61 degrees QTcB Int : 429 ms Normal sinus rhythm Normal ECG Confirmed by CAMRON CAIN, PANFILO ([id number]), publications editor DAMIAN SHAFFER ([id number]) on 03/22/2024 6:08:31 AM Referred By: Nirmal Head Confirmed By: PANFILO LYON MD 03/22/24 0608 Date Panfilo Lyon MD CC: Dr. Catarino Connell MD; Dr. Malvin Douglas MD; Dr. Nirmal Head MD Signed Normal [facility] Basic Metabolic Profile (BMP )on 03-19-2024 BUN/CRE 30.0 RATIO High 10-20 [facility] Comment on above: Performed By: #### L 500.2500, L501.9520, L100.0100 ####[facility] [address] [place], [address] CA,Total 8.8 mg/dL Normal 8.5-10.1 [facility] Comment on above: Performed By: #### L 500.2500, L501.9520, L100.0100 ####[facility] [address] [place], [address] Chloride [Moles/Vol] 109 mmol/L High 98-107 [facility] Comment on above: Performed By: #### L 500.2500, L501.9520, L100.0100 ####[facility] [address] [place], [address] CO2 [Moles/Vol] 28.0 mmol/L Normal 21.0-32.0 [facility] Comment on above: Performed By: #### L 500.2500, L501.9520, L100.0100 ####[facility] [address] [place], [address] Creatinine [Mass/Vol] 0.70 mg/dL Normal 0.55-1.02 [facility] Comment on above: Result Comment: The validity of the calculated GFR GFRAA in patients over 70 years has not been determined. Clinical correlation is essential. Performed By: #### L 500.2500, L501.9520, L100.0100 ####[facility] [address] [place], [address] EST GFR - AA 105 mL/min Normal >60 [facility] Comment on above: Result Comment: Afri can Finnish GFR Calc Performed By: #### L 500.2500, L501.9520, L100.0100 ####[facility] [address] [place], [address] GAP 5 Normal 5-15 [facility] Comment on above: Performed By: #### L 500.2500, L501.9520, L100.0100 ####[facility] [address] [place], [address] GFR/1.73 sq M.predicted among non-blacks MDRD (S/P/Bld) [Vol rate/Area] 87 mL/min/{1.73_m2} Normal >60 [facility] Comment on above: Result Comment: Non- GFR Calc Performed By: #### L 500.2500, L501.9520, L100.0100 ####[facility] [address] [place], [address] Glucose [Mass/Vol] 92 mg/dL Normal 74-106 [facility] Comment on above: Performed By: #### L 500.2500, L501.9520, L100.0100 ####[facility] [address] [place], [address] Potassium [Moles/Vol] 3.8 mmol/L Normal 3.5-5.1 [facility] Comment on above: Performed By: #### L 500.2500, L501.9520, L100.0100 ####[facility] [address] [place], [address] Sodium [Moles/Vol] 141 mmol/L Normal 136-145 [facility] Comment on above: Performed By: #### L 500.2500, L501.9520, L100.0100 ####[facility] [address] [place], [address] Urea nitrogen [Mass/Vol] 21 mg/dL High 7-18 [facility] Comment on above: Performed By: #### L 500.2500, L501.9520, L100.0100 ####[facility] [address] [place], [address] CBC W/Diff, Automatedon -3 Absolute Lymph 1.26 X10 3/uL Normal 0.83-4.51 [facility] Comment on above: Performed By: #### L 500.2500, L501.9520, L100.0100 ####[facility] [address] [place], [address] Absolute Neut 1.9 X10 3/uL Low 2.0-7.7 [facility] Comment on above: Performed By: #### L 500.2500, L501.9520, L100.0100 ####[facility] [address] [place], [address] Basophils/100 WBC (Bld) 0.8 % Normal 0-1 [facility] Comment on above: Performed By: #### L 500.2500, L501.9520, L100.0100 ####[facility] [address] [place], [address] Eosinophils/100 WBC (Bld) 5.4 % High 0-5 [facility] Comment on above: Performed By: #### L 500.2500, L501.9520, L100.0100 ####[facility] [address] [place], [address] Erythrocyte distribution width (RBC) [Ratio] 12.7 % Normal 11.6-14.6 [facility] Comment on above: Performed By: #### L 500.2500, L501.9520, L100.0100 ####[facility] [address] [place], [address] Hematocrit (Bld) [Volume fraction] 36.8 % Low 37-47 [facility] Comment on above: Performed By: #### L 500.2500, L501.9520, L100.0100 ####[facility] [address] [place], [address] Hemoglobin (Bld) [Mass/Vol] 12.3 g/dL Normal 12.0-15.0 [facility] Comment on above: Performed By: #### L 500.2500, L501.9520, L100.0100 ####[facility] [address] [place], [address] IG% 0.300 Normal 0.0-0.9 [facility] Comment on above: Result Comment: IG% - Immature Granulocytes (promyelocytes, myelocytes and metamyelocytes) > 1% indicates that a LEFT SHIFT is Present. Performed By: #### L 500.2500, L501.9520, L100.0100 ####[facility] [address] [place], [address] Lymphocytes/100 WBC (Bld) 33.8 % Normal 19-41 [facility] Comment on above: Performed By: #### L 500.2500, L501.9520, L100.0100 ####[facility] [address] [place], [address] MCH (RBC) [Entitic mass] 31.5 pg Normal 27.0-32.0 [facility] Comment on above: Performed By: #### L 500.2500, L501.9520, L100.0100 ####[facility] [address] [place], [address] MCHC (RBC) [Mass/Vol] 33.4 g/dL Normal 32-36 [facility] Comment on above: Performed By: #### L 500.2500, L501.9520, L100.0100 ####[facility] [address] [place], [address] MCV (RBC) [Entitic vol] 94.4 fL Normal 81-99 [facility] Comment on above: Performed By: #### L 500.2500, L501.9520, L100.0100 ####[facility] [address] [place], [address] Monocytes/100 WBC (Bld) 10.2 % High 0-10 [facility] Comment on above: Performed By: #### L 500.2500, L501.9520, L100.0100 ####[facility] [address] [place], [address] Neutrophils/100 WBC (Bld) 49.5 % Normal 47-70 [facility] Comment on above: Performed By: #### L 500.2500, L501.9520, L100.0100 ####[facility] [address] [place], [address] Nucleated RBC (Bld) [#/Vol] 0 10*3/uL Normal 0-5 [facility] Comment on above: Performed By: #### L 500.2500, L501.9520, L100.0100 ####[facility] [address] [place], [address] Platelet mean volume (Bld) [Entitic vol] 8.8 fL Normal 6.2-12.0 [facility] Comment on above: Performed By: #### L 500.2500, L501.9520, L100.0100 ####[facility] [address] [place], [address] Platelets (Bld) [#/Vol] 256 10*3/uL Normal 150-450 [facility] Comment on above: Performed By: #### L 500.2500, L501.9520, L100.0100 ####[facility] [address] [place], [address] RBC (Bld) [#/Vol] 3.90 10*6/uL Low 4.2-5.4 [facility] Comment on above: Performed By: #### L 500.2500, L501.9520, L100.0100 ####[facility] [address] [place], [address] RDW SD 44.1 fl High 35.1-43.9 [facility] Comment on above: Performed By: #### L 500.2500, L501.9520, L100.0100 ####[facility] [address] [place], [address] WBC (Bld) [#/Vol] 3.7 10*3/uL Low 4.4-11.0 [facility] Comment on above: Performed By: #### L 500.2500, L501.9520, L100.0100 ####[facility] [address] [place], [address] Thyroid Stim Hormone (TSH)on 03-19-2024 TSH 2.410 uIU/mL Normal 0.358-3.74 0 [facility] Comment on above: Performed By: #### L 500.2500, L501.9520, L100.0100 ####[facility] [address] [place], [address] Free T3on 03-18-2024 Free T3 [Mass/Vol] 2.4 pg/mL Normal 2.18-3.98 [facility] Comment on above: Order Comment: PER Elissa LAW COMMENT-AMABOrder Date: 03/18/24Order Info: 3051-0 - C5KYxcck Info: 3016-3 - TSHOrder Info: 3024-7 - T4F Performed By: #### L 506.0400, L501.68762, L501.9520 ####[facility] [address] [place], [address] T4 Free Directon 03-18-2024 T4 FREE DIRECT 1.30 ng/dL Normal 0.76-1.46 [facility] Comment on above: Order Comment: PER Elissa NTERJULEE COMMENT-AMABOrder Date: 03/18/24Order Info: 3051-0 - B4PAfiwu Info: 3016-3 - TSHOrder Info: 3024-7 - T4F Performed By: #### L 506.0400, L501.60546, L501.9520 ####[facility] [address] [place], [address] Thyroid Stim Hormone (TSH)on 03-18-2024 TSH 1.720 uIU/mL Normal 0.358-3.74 0 [facility] Comment on above: Order Comment: PER Elissa GARCIAERJULEE COMMENT-AMABOrder Date: 03/18/24Order Info: 3051-0 - X4JMwcjc Info: 3016-3 - TSHOrder Info: 3024-7 - T4F Performed By: #### L 506.0400, L501.12471, L501.9520 ####[facility] [address] [place], [address] [facility] 03-03-2024 CNPN Telephone (OBGYWM) ----- AYESHA CASTREJON ([id number]) 1950 F Date Time Provider Department 03/03/24 DEMARCO VOGELWLuca During your visit today, we recorded the following information about you: Nayana Wiggins RN 03/03/2024 10:05 AM Signed Patient seen in [...] eval or discuss surger would refer to [facility] urogyn. MD Romulo Hopkins Tara, RN 03/03/2024 [...] (FLONASE) 50 mcg/actuation nasal spray Use 1 [place] in each nostril as needed. - TURMERIC [...] Encounter Status:Closed by PABLO MCCORMICK on 03/03/24 [facility] CNOVdeborah 03-02-2024 CNOV Office Visit (OBGYWM ) ----- AYESHA CASTREJON ([id number]) 1950 F Date Time Provider Department 03/02/24 [...] (FLONASE) 50 mcg/actuation nasal spray Use 1 [place] in each nostril as needed. - TURMERIC [...] Encounter Status:Closed by DEMARCO VOGEL on 03/03/24 [facility] Office Visit (OBGYWM ) ----- AYESHA CASTREJON ([id number]) 1950 F Date Time Provider Department 02/26/24 9:40 AM DEMARCO VOGEL OBGYWM During your visit today, we recorded the following information about you: Blood pressure Weight Height 124/78 54.4 kg 1.524 m Demarco Vogel MD 02/26/2024 10:23 AM Signed Ayesha is a 73 year old who presents for an annual gynecologic exam without complaints. Postmenopausal: yes never on hormones other than vaginal estrogen. S/p hysterectomy for fibroids, benign. Ovaries remain> No vaginal bleeding. Not currently sexually active OB History T0 L2 SAB0 IAB0 Ectopic0 Multiple0 Live Births0 Comment: 2 vaginal deliveries [employer] History LMP: Hysterectomy Age at Menarche: Age at First : Age at Menopause: [employer] History Comments: Sexual Activity: Not Currently; Male; [...] discussed with the Patient or Patient's Authorized Customer Care Voice Consultant. As applicable, any other physician, advance practice provider, medical student, or other health professional student that will be observing or involved in the sensitive examination for educational or training purposes was discussed with the Patient or Authorized Customer Care Voice Consultant. The Patient or Authorized Customer Care Voice Consultant has agreed to proceed with the sensitive [...] external genitalia normal, normal Bartholin's glands, urethra, Alexis's glands, no vulvar lesions, mild cystocele and rectocele, physiologic discharge present, normal appearing perineal body and perianal region, cervix surgically absent, atrophic flattened epithelium BIMANUAL: no adnexal masses, non-tender, and uterus surgically absent ASSESSMENT/PLAN: 1) Health maintenance: Pap/HPV screening no longe (more content not included)... Normal [facility] Orthopedic Visit Reporton Orthopedic Visit Report [facility] [address] [place] [id number] OFFICE VISIT Date of Service: 02/13/24 MR#: [id number] Acct: [id number] Name: AYESHA CASTREJON Rep #: [id number] : 1950 Provider: Dr. Nirmal cabrera MD Age/Sex: 73/F Location: [facility] Status: Signed Intake Vital Signs 12/12/23 11:28 [...] Prolia 60 mg/mL subcutaneous 60 mg subcut N2FCGOMW #1 mL 09/17/21 02/13/24 Rx syringe (denosumab) [...] shoulder: Status: (more content not included)... Normal [facility] Orthopedic Visit Reporton Orthopedic Visit Report [facility] [address] [place] [address] [address] [place] [address] OFFICE VISIT Date of Service: 02/05/24 MR#: [id number] Acct: [id number] Name: AYESHA CASTREJON Rep #: [id number] : 1950 Provider: Dr. Nirmal cabrera MD Age/Sex: 73/F Location: [facility] Status: Signed Intake Vital Signs 12/12/23 11:28 [...] Prolia 60 mg/mL subcutaneous 60 mg subcut Q2CYOXIS #1 mL 09/17/21 02/05/24 Rx syringe (denosumab) [...] by me, Dr. Nirmal Head MD 02/05/24 8153. Part of today???s visit was documented by [...] activity no pain at rest. Supplemental Info [facility] Imaging Services [address] [place] [address] Upper Ext Joint Only(Routine) MR#: [id number] Acct: [id number] Name: AYESHA CASTREJON Rep #: [id number] : 1950 73 From: Dalton Sol MD PCP: Dr. Malvin Douglas MD Status: REG CLI Study: Upper Ext Joint Only(Routine) Date of Exam: 12/11/23 Exam# [id number] Ordering Dr: Nirmal Head MD [id number] STUDY: MRI RIGHT SHOULDER REASON FOR EXAM: [...] glenohumeral articulation. (more content not included)... Normal [facility] SCRN MAMM (CAD)W/VANDANA BILATo n 01-29-2024 SCRN MAMM (CAD)W/VANDANA BILAT [facility] Imaging Services [address] [place] [id number] SCRN MAMM (CAD)W/VANDANA BILAT MR#: [id number] Acct: [id number] Name: AYESHA CASTREJON Rep #: [id number] : 1950 73 From: Kingston luna MD PCP: Dr. Malvin Douglas MD Status: REG CLI Study: SCRN MAMM (CAD)W/VANDANA BILAT Date of Exam: 01/17 04/12 Exam# [id number] Ordering Dr: Malvin Douglas [id number] MAMMOGRAPHY - BILATERAL SCREENING REASON FOR EXAM: [...] delay biopsy of a clinically suspicious abnormality. [id number] Electronically Signed: Kingston Domingo MD at 10:46 EST , CC: Dr. Malvin Douglas MD Electrical Logging Engineer: Signed Normal [facility] PT D/C Summary (1)on 024 PT D/C Summary (1) [facility] Physical Therapy [facility] [address] [place] [address] / REHABILITATION SERVICES DISCHARGE SUMMARY MR#: [id number] Acct: [id number] Name: AYESHA CASTREJON Rep #: [id number] : 1950 73 From: Key Crockett PT, Cert. MDT Referring Dr.: Dr. Nirmal Head MD Status: R EG RCR Insurance: MEDICARE PART A B ANTHEM Discharge Summary D/C summary: It has been my pleasure to treat AYESHA CASTREJNO referred by Dr. Nirmal Head MD, with [...] THAN SHE HAD IN L SHLD AT EVAL). SHLD FLEX R 16.6 LBS SHLD ABD R 18.9 LBS SHLD IR R 19.5 LBS SHLD ER R 15.7 LBS ELBOW FLEX R 19.2 LBS ELBOW EXT R 19.4 LBS BLACK BELT STRENGTH R 40 LBS Goals Goal 1:: [...] please feel free to call me at [phone]. Thank you for the referral of this patient. Sincerely, Key Crockett, PT, Cert MDT Balance/Gait/Functional tests Balance/Special Test Scores Quick DASH Score: 20.4525 Improvement % Improvement: 0 01/26/24 1249 CC: Dr. Malvin Douglas MD; Dr. Nirmal Head MD VALENTÍN Signed [facility] [id number] 12-24-2023 [id number] HNO ID: [id number] Author: JANE SURESH RN Service: ? Author Type: Registered Nurse Type: [id number] Filed: 12/24/2023 09:02 Note Text: The patient received a copy of Colonoscopy discharge instructions that contain information for how to contact the physician who performed the procedure and when to seek medical care. [facility] Colonoscopyon 12-24-2023 Colonoscopy [facility] Gastrointestinal Endoscopy Patient Name: Ayesha Castrejon [...] the patient. Procedure Code(s): --- Professional --- 43077, Colonoscopy, flexible; diagnostic, including collection of specimen(s) by brushing or washing, when performed (separate procedure) G0500, Moderate sedation services provided by the same physician or other qualified health career development associate performing a gastrointestinal endoscopic service that sedation supports, requiring the presence of an independent trained observer to assist in the monitoring of the patient's level of consciousness and physiological status; initial 15 minutes of intra-service time; patient age 5 years or older (additional time may be reported with 01793, as appropriate) CPT copyright 2020 [employer]. All rights reserved. The codes documented in this report are preliminary and upon linoleum floor installer review may be revised to meet current compliance requirements. Attending Participation: I was present and participated during the entire proc (more content not included)... Normal [facility] Colonoscopy Study observatio non [facility] Patient Name: Ayesha Castrejon [...] present medications. (more content not included)... PROVATION [facility] Radiology Study observation (narrative) Robi serrato [facility] HISTORY PHYSICALon 4 HISTORY PHYSICAL HNO ID: [id number] Author: ROBYN HORVATH MD Service: General Surgery Author Type: Physician Type: H&P Filed: 12/24/2023 08:03 Note Text: HISTORY AND PHYSICAL Ayesha Castrejon : 1950 REFERRING PHYSICIAN: Robyn Horvath [address] [facility] [address] CHIEF COMPLAINT: Patient presents with: Consult HPI: [...] Last colonoscopy 11/[address] Horvath at [facility]. Sedation received: Midazolam 5 mg IV, Fentanyl 100 micrograms IV Impression: - One small polyp in the proximal descending colon, removed with a cold biopsy forceps. Resected and retrieved. - One 7 mm polyp in the proximal rectum, removed piecemeal using a cold snare. Resected and retrieved. Clips (MR conditional) were placed. 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 - The examination was otherwise normal on [...] daily as needed. May take two capsules gtsvgeviex-wyfczpq-rxpcxp alejandra (FOLINIC-PLUS) 4-50-2 mg tab Take 1 [...] (FLONASE) 50 mcg/actuation nasal spray Use 1 [place] in each nostril as needed. TURMERIC ORAL [...] Vein Surgery (more content not included)... Normal [facility] NURSING PROGon 12-24-2023 NURSING PROG HNO ID: [id number] Author: JANE SURESH RN Service: ? Author [...] on left side, brought to bedside. Normal 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 Symptoms [...] ELBOW EXT R 7.0, L 8 LBS. BLACK BELT STRENGTH R 40. L 35 LBS Cervical [...] Strength training, (more content not included)... Normal [facility] Orthopedic Visit Reporton Orthopedic Visit Report [facility] [address] [place] [address] OFFICE VISIT Date of Service: 12/15/23 MR#: [id number] Acct: [id number] Name: AYESHA CASTREJON Rep #: [id number] : 1950 Provider: Dr. Nirmal cabrera MD Age/Sex: 73/F Location: [facility] Status: Signed Intake Vital Signs 10/14/23 14:52 [...] Prolia 60 mg/mL subcutaneous 60 mg subcut [id number] #1 mL 09/17/21 12/15/23 Rx syringe (denosumab) cholecalciferol (vitamin D3) 25 [...] past year?: Yes PFSH Medical History (Updated 12/15/23 @ 13:10 by [...] by me, Dr. Nirmal Head MD 12/15/23 1250. Part of today???s visit was documented by [...] nerve, and MRU and AIN/PIN Supplemental Info [facility] Imaging Services [address] [place] [address] Upper Ext Joint Only(Routine) MR#: [id number] Acct: [id number] Name: AYESHA CASTREJON Rep #: [id number] : 1950 F 73 From: Dalton Sol MD PCP: Dr. Malvin Doulgas MD Status: REG CLI Study: Upper Ext Joint Only(Routine) Date of Exam: 12/11/23 Exam# [id number] Ordering Dr: Nirmal Head MD [id number] STUDY: MRI RIGHT SHOULDER REASON FOR EXAM: Female, 73 years old. Pain right shoulder. TECHNIQUE: Standar (more content not included)... Normal [facility] Upper Ext Joint Only(Routine )on 12-11-2023 Upper Ext Joint Only(Routine) [facility] Imaging Services [address] [facility] [place] [address] Upper Ext Joint Only(Routine) MR#: [id number] Acct: [id number] Name: AYESHA CASTREJON Rep #: [id number] : 1950 F 73 From: Dalton Sol MD PCP: Dr. Malvin Douglas MD Status: REG CLI Study: Upper Ext Joint Only(Routine) Date of Exam: Exam# [id number] Ordering Dr: Nirmal Head MD [id number] STUDY: MRI RIGHT SHOULDER REASON FOR EXAM: [...] Signed: Dalton Sol MD at 15:16 EDT Reading Location ID and State: [address] [place] [address] , Service support , CC: Dr. Malvin Douglas MD; Dr. 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 Normal [facility] Liver Profileon 12-09-2023 Albumin [Mass/Vol] 3.5 g/dL Normal 3.2-5.0 [facility] Comment on above: Order Comment: Order Date: 12/09/23 Order Info: 0788-1 - LIVER Performed By: #### L 500.3400 #### [facility] Laboratory [address] [place], [address] ALK P 115 U/L Normal 45-117 [facility] Comment on above: Order Comment: Order Date: 12/09/23 Order Info: 0788-1 - LIVER Performed By: #### L 500.3400 #### [facility] [address] [place], [address] ALT [Catalytic activity/Vol] 20 U/L Normal 13-56 [facility] Comment on above: Order Comment: Order Date: 12/09/23 Order Info: 0788-1 - LIVER Performed By: #### L 500.3400 #### [facility] Laboratory [address] [place], [address] AST [Catalytic activity/Vol] 24 U/L Normal 15-37 [facility] Comment on above: Order Comment: Order Date: 12/09/23 Order Info: 0788-1 - LIVER Performed By: #### L 500.3400 #### [facility] Laboratory [address] [place], [address] Bilirubin [Mass/Vol] 0.30 mg/dL Normal 0.20-1.00 [facility] Comment on above: Order Comment: Order Date: 12/09/23 Order Info: 0788-1 - LIVER Result Comment: For patients on eltrombopag therapy, use of Dimension [place] TBIL is not recommended. Performed By: #### L 500.3400 #### [facility] [address] [place], [address] Bilirubin.direct [Mass/Vol] 0.09 mg/dL Normal 0.00-0.30 [facility] Comment on above: Order Comment: Order Date: 12/09/23 Order Info: 0788-1 - LIVER Performed By: #### L 500.3400 #### [facility] Laboratory [address] [place], [address] Globulin (S) [Mass/Vol] 3.2 g/dL Normal 2.2-4.2 [facility] Comment on above: Order Comment: Order Date: 12/09/23 Order Info: 0788-1 - LIVER Performed By: #### L 500.3400 #### [facility] [address] [place], [place], [address] T PROT 6.7 g/dL Normal 6.4-8.2 [facility] Comment on above: Order Comment: Order Date: 12/09/23 Order Info: 0788-1 - LIVER Performed By: #### L 500.3400 #### [facility] [address] [place], [address] CNOVon 11-13-2023 CNOV Office Visit (GENSWS ) ----- AYESHA CASTREJON ([id number]) 1950 F Date Time Provider Department 11/13/23 11:00 AM MAREN HERRMANN During your visit today, we recorded the following information about you: Temperature Pulse Respiration Blood pressure 98 degrees 64/minute 14/minute 120/76 Weight 52.2 kg Maren Herrmann APRN.REAL ESTATE ACCOUNTANT 11/13/2023 11:31 AM Signed HISTORY AND PHYSICAL Ayesha Castrejon : 1950 REFERRING PHYSICIAN: Robyn Horvath [address] [facility] [address] CHIEF COMPLAINT: Patient presents with: Consult HPI: [...] Last colonoscopy 11/[address] Horvath at [facility]. Sedation received: Midazolam 5 mg IV, Fentanyl 100 micrograms IV Impression: - One small polyp in the proximal descending colon, removed with a cold biopsy forceps. Resected and retrieved. - One 7 mm polyp in the proximal rectum, removed piecemeal using a cold snare. Resected and retrieved. Clips (MR conditional) were placed. 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 - The examination was otherwise normal on [...] daily as needed. May take two capsules soxdhplmkl-crmlouk-chpsvz alejandra (FOLINIC-PLUS) 4-50-2 mg tab Take 1 [...] (FLONASE) 50 mcg/actuation nasal spray Use 1 [place] in each nostril as needed. TURMERIC ORAL [...] curettage ESOPHAGOGASTRODUODENOS (more content not included)... Normal [facility] Orthopedic Visit Reporton Orthopedic Visit Report [facility] [address] [place] [address] OFFICE VISIT Date of Service: 10/14/23 MR#: [id number] Acct: [id number] Name: LUCÍAAYESHA Rep #: [id number] : 1950 Provider: Dr. Nirmal cabrera MD Age/Sex: 73/F Location: [facility] Status: Signed Intake Vital Signs 09/15/23 14:16 [...] Prolia 60 mg/mL subcutaneous 60 mg subcut [id number] #1 mL 09/17/21 10/14/23 Rx syringe (denosumab) [...] you fallen in the past year?: Yes [facility] Medical History (Updated 10/14/23 @ 15:22 by Nirmal Head MD) Impingement of right shoulder Right shoulder pain Laceration of right ring finger Osteoporosis Brain tumor Pericardial effusion Hypothyroidism GERD (gastroesophageal reflux disease) RLS (restless legs syndrome) Malignant neoplasm of colon Malignant neoplasm of kidney DDD (degenerative disc disease) Hyperlipidemia Premature ventricular contraction Premature atrial contractions Surgical History (Updated 10/14/23 @ 14:55 by Elizabeth Snip) History of eyelid surgery History of cochlear [...] Performing Provider: Nirmal Head MD Performing Location: [facility] Administered by: Nirmal Head MD on 10/14/23 15:22 Dose Route Admin Location Dispensed Lot Number Expiration Date NDC Man ufacturer 80 mg intra-articular right shoulder 2 mL [id number] 05/18/25 7347-6956-63 [facility] Supplemental Info Right shoulder x-rays 4 views obtained this demonstrates glenohumeral joint space well-maintained. Mild AC joint arthrosis. No superior humeral head migration. 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 (more content not included)... Normal [facility] Shoulder min 2 Viewson 10-13 Shoulder min 2 Views [facility] [address] [address] Shoulder min 2 Views MR#: [id number] Acct: [id number] Name: AYESHA CASTREJON Rep #: [id number] : 1950 F 73 From: Dalton Sol MD PCP: Dr. Malvin Douglas MD Status: DEP AMB Study: Shoulder min 2 Views Date of Exam: 10/14/23 Exam# [id number] Ordering Dr: Nirmal Head MD [id number] STUDY: X-RAY - RIGHT SHOULDER REASON FOR [...] Malvin Douglas MD; Dr. 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 Normal [facility] No Panel Informationon 02-14 POC SARS CoV-2 Antigen Negative [facility] Influenza Types A,B Rapid (Clinic) Pos FLU A &Neg FLU B [facility] Basophil percentageOrdered B y: Hawk Douglas on 01-03-2023 Chloride [Moles/Vol] 106 mmol/L 98-107 [facility] Glucose [Mass/Vol] 82 mg/dL 74-106 [facility] Potassium [Moles/Vol] 4.1 mmol/L 3.5-5.1 [facility] Sodium [Moles/Vol] 140 mmol/L 136-145 [facility] Laboratory - Chemistry and C hemistry - challengeOrdered By: Hawk Douglas on 01-03-2023 CO2 [Moles/Vol] 30.0 mmol/L 21.0-32.0 [facility] Urea nitrogen/Creatinine [Mass ratio] 25.6 mg/mg 10-20 [facility] No Panel InformationOrdered By: Hawk Douglas on 01-03-2023 Estimated GFR (MDRD) Amer 105 mL/min >60 [facility] Comment on above: GFR Calc Estimated GFR (MDRD) Non-Af Amer 87 mL/min >60 [facility] Comment on above: Non- GFR Calc Parathyroid Hormone (Intact) 49.6 pg/mL 18.4-80.1 [facility] Thyroid Stimulating Hormone (TSH) 2.08 uIU/mL 0.358-3.74 [facility] Vitamin D 25-Hydroxy 87.8 ng/mL [facility] Comment on above: Vitamin D 25(OH) Sta tus Range Deficiency <20 ng/mL (50nmol/L) Insufficiency 20 - 30 ng/mL (50 - 75 nmol/L) Sufficiency 30 - 100 ng/mL (75 - 250 nmol/L) Toxicity >100 ng/mL (>250 nmol/L) Serum or plasma calcium zaid urement (mass/volume)Ordered By: Hawk Douglas on 01-03-2023 Calcium [Mass/Vol] 8.6 mg/dL 8.5-10.1 [facility] Serum or plasma creatinine m easurement (mass/volume)Ordered By: Hawk Douglas on 01-03-2023 Creatinine [Mass/Vol] 0.70 mg/dL 0.55-1.02 [facility] Comment on above: The validity of the calculated GFR & GFRAA in patients over 70 years has not been determined. Clinical correlation is essential. Serum or plasma urea nitroge n measurement (mass/volume)Ordered By: Hawk Douglas on 01-03-2023 Urea nitrogen [Mass/Vol] 18 mg/dL 7-18 [facility] Thin prep Papanicolaou smear with manual screeningOrdered By: Hawk Douglas on 01-03-2023 Thin prep Papanicolaou smear with manual screening 4 5-15 [facility] No Panel InformationOrdered By: Adam Cruz on 10-22-2022 Endomysial IgA Antibody Negative Negative [facility] Serum IgA measurement (units /volume)Ordered By: Adam Cruz on 10-22-2022 IgA Qn (S) 70 mg/dL 64-422 [facility] Comment on above: Performed at: [place] [id number] Director: Adam Regalado PhD, Phone: [phone] Serum or plasma C reactive p rotein measurement (mass/volume)Ordered By: Adam Cruz on 10-22-2022 CRP [Mass/Vol] mg/L 0.0-3.0 [facility] Comment on above: C-Reactive Protein ( CRP) provides useful information for thediagnosis, therapy and monitoring of inflammatory processesand associated diseases. For the evaluation of Relative Riskfor Cardiovascular Disease, a High Sensitivity CRP (HSCRP)should be ordered. Serum tissue transglutaminas e IgA antibody assay (units/volume)Ordered By: Adam Cruz on 10-22-2022 tTG IgA Qn (S) <2 U/mL 0-3 [facility] Comment on above: Negative 0 - 3 Weak Positive 4 - 10 Positive >10 Tissue Transglutaminase (tTG) has been identified as the endomysial antigen. Studies have demonstr- ated that endomysial IgA antibodies have over 99% specificity for gluten sensitive enteropathy. Culture, urineOrdered By: Stewart Mike on 08-27-2022 Bacteria identified Cx Nom (U) Culture exhibits no growth. [facility] No Panel InformationOrdered By: Hawk Douglas on 08-16-2022 Stool Pancreatic Elastase > 500 >200 [facility] Comment on above: Result Units: ug Ailyn st./g Severe Pancreatic Insufficiency: <100 Moderate Pancreatic Insufficiency: 100 - 200 Normal: >200Performed at: [facility] [id number] Director: Samuel Wheleer MD, Phone: [phone] Ova and parasitesOrdered By: Hawk Douglas on 08-16-2022 Ova and parasites identified LM Nom (Unsp spec) [facility] Absolute lymphocyte countOrd ered By: Caryn Swain on 08-09-2022 Lymphocytes Auto (Unsp spec) [#/Vol] 0.94 10*3/uL 0.83-4.51 [facility] Albumin Elph [Mass/Vol]Order ed By: Caryn Swain on 08-09-2022 Albumin [Mass/Vol] 3.5 g/dL 2.9-4.4 [facility] Atypical perinuclear antineu trophil cytoplasmic antibodies measurementOrdered By: Caryn Swain on 08-09-2022 Neutrophil cytoplasmic Ab.perinuclear.atypical IF (S) [Titer] <1:20 titer Neg:<1:20 [facility] Comment on above: The atypical pANCA p attern has been observed in asignificant percentage of patients with ulcerative colitis,primary sclerosing cholangitis and autoimmune hepatitis. Basophil percentageOrdered B y: Caryn Swain on 08-09-2022 Basophil percentage 0-5 SEEN /hpf 0-5 [facility] Basophil percentage < 0.2 AI 0.0-0.9 [facility] Basophils/100 WBC (Bld) 0.9 % 0-1 [facility] Bilirubin [Mass/Vol] 0.50 mg/dL 0.20-1.00 [facility] Comment on above: For patients on eltr ombopag therapy, use of Dimension [place] TBIL is not recommended. Chloride [Moles/Vol] 105 mmol/L 98-107 [facility] Eosinophils/100 WBC (Bld) 1.8 % 0-5 [facility] Glucose [Mass/Vol] 93 mg/dL 74-106 [facility] Neutrophils (Bld) [#/Vol] 2.0 10*3/uL 2.0-7.7 [facility] Neutrophils/100 WBC (Bld) 59.8 % 47-70 [facility] Potassium [Moles/Vol] 3.9 mmol/L 3.5-5.1 [facility] Protein [Mass/Vol] 6.7 g/dL 6.4-8.2 [facility] Sodium [Moles/Vol] 138 mmol/L 136-145 [facility] WBC (Bld) [#/Vol] 3.4 10*3/uL 4.4-11.0 [facility] Bilirubin Test strip Ql (U)O rdered By: Caryn Swain on 08-09-2022 Bilirubin Ql (U) Negative Negative [facility] Blood erythrocytes count (nu mber/volume)Ordered By: Caryn Swain on 08-09-2022 RBC (Bld) [#/Vol] 4.40 10*6/uL 4.2-5.4 [facility] Blood hemoglobin measurement (mass/volume)Ordered By: Caryn Swain on 08-09-2022 Hemoglobin (Bld) [Mass/Vol] 13.7 g/dL 12.0-15.0 [facility] Blood lymphocytes/100 leukoc ytesOrdered By: Caryn Swain on 08-09-2022 Lymphocytes/100 WBC (Bld) 28.0 % 19-41 [facility] Blood monocytes/100 leukocyt esOrdered By: Caryn Swain on 08-09-2022 Monocytes/100 WBC (Bld) 9.5 % 0-10 [facility] Blood platelet mean volumeOr dered By: Caryn Swain on 08-09-2022 Platelet mean volume (Bld) [Entitic vol] 9.9 fL 6.2-12.0 [facility] Cerebrospinal fluid Borrelia burgdorferi 18kd IgG antibody detection by immunoblotOrdered By: Caryn Swain on 08-09-2022 B. burgdorferi 18kD IgG IB Ql (CSF) Absent . [facility] Cerebrospinal fluid Borrelia burgdorferi 23kD IgG antibody detection by immunoblotOrdered By: Caryn Swain on 08-09-2022 B. burgdorferi 23kD IgG IB Ql (CSF) Absent . [facility] Cerebrospinal fluid Borrelia burgdorferi 23kD IgM antibody detection by immunoblotOrdered By: Caryn Swain on 08-09-2022 B. burgdorferi 23kD IgM IB Ql (CSF) Absent . [facility] Cerebrospinal fluid Borrelia burgdorferi 28kD IgG antibody detection by immunoblotOrdered By: Caryn Swain on 08-09-2022 B. burgdorferi 28kD IgG IB Ql (CSF) Absent . [facility] Cerebrospinal fluid Borrelia burgdorferi 39kD IgG antibody detection by immunoblotOrdered By: Caryn Swain on 08-09-2022 B. burgdorferi 39kD IgG IB Ql (CSF) Absent . [facility] Cerebrospinal fluid Borrelia burgdorferi 39kD IgM antibody detection by immunoblotOrdered By: Caryn Swain on 08-09-2022 B. burgdorferi 39kD IgM IB Ql (CSF) Absent . [facility] Cerebrospinal fluid Borrelia burgdorferi 41kD IgM antibody detection by immunoblotOrdered By: Caryn Swain on 08-09-2022 B. burgdorferi 41kD IgM IB Ql (CSF) Absent . [facility] Determination of erythrocyte mean corpuscular volume (MCV)Ordered By: Caryn Swain on 08-09-2022 MCV (RBC) [Entitic vol] 95.5 fL 81-99 [facility] Erythrocyte sedimentation ra teOrdered By: Caryn Swain on 08-09-2022 ESR (Bld) [Velocity] 8 mm/h 0-30 [facility] Hematocrit Auto (Bld) [Volum e fraction]Ordered By: Caryn Swain on 08-09-2022 Hematocrit (Bld) [Volume fraction] 42.0 % 37-47 [facility] Interpretation of serum or p lasma protein pattern by immunofixation (narrative resultOrdered By: Caryn Swain on 08-09-2022 Protein Fractions Immunofixation Dg [Interp] See comment [facility] Comment on above: NOT OBSERVED Ketones Test strip Ql (U)Ord ered By: Caryn Swain on 08-09-2022 Ketones Ql (U) 5 mg/dl Negative [facility] Laboratory - Chemistry and C hemistry - challengeOrdered By: Caryn Swain on 08-09-2022 ALP [Catalytic activity/Vol] 80 U/L 45-117 [facility] [facility] ALT [Catalytic activity/Vol] 23 U/L 13-56 [facility] CK [Catalytic activity/Vol] 62 U/L 26-192 [facility] CO2 [Moles/Vol] 26.0 mmol/L 21.0-32.0 [facility] Cobalamin (Vitamin B12) [Mass/Vol] 575 pg/mL 211-911 [facility] Globulin (S) [Mass/Vol] 3.1 g/dL 2.2-4.2 [facility] Magnesium [Mass/Vol] 2.4 mg/dL 1.6-2.6 [facility] Urea nitrogen/Creatinine [Mass ratio] 17.3 mg/mg 10-20 [facility] Laboratory - Hematology and Cell countsOrdered By: Caryn Swain on 08-09-2022 Erythrocyte distribution width (RBC) [Entitic vol] 43.7 fL 35.1-43.9 [facility] Erythrocyte distribution width (RBC) [Ratio] 12.4 % 11.6-14.6 [facility] Immature granulocytes/100 WBC (Bld) 0.000 % 0.0-0.9 [facility] Comment on above: IG% - Immature Granu locytes (promyelocytes, myelocytes and metamyelocytes) > 1% indicates that a LEFT SHIFT is Present. MCH (RBC) [Entitic mass] 31.1 pg 27.0-32.0 [facility] Nucleated RBC/100 WBC (Bld) [Ratio] 0 % 0-5 [facility] MCHC Auto (RBC) [Mass/Vol]Or dered By: Caryn Swain on 08-09-2022 MCHC (RBC) [Mass/Vol] 32.6 g/dL 32-36 [facility] Mucus LM Ql (Urine sed)Order ed By: Caryn Swain on 08-09-2022 Mucus Ql (Urine sed) 0 SEEN /hpf [facility] Nitrite Test strip Ql (U)Ord ered By: Caryn Swain on 08-09-2022 Nitrite Ql (U) Negative Negative [facility] No Panel InformationOrdered By: Caryn Swain on 08-09-2022 Addendum Document Comment . [facility] Comment on above: Protein electrophore sis scan will follow via computer,mail, or planned giving officer delivery. Anti-Nuclear Antibody Screen Positive Negative [facility] Centromere B Antibody <0.2 AI 0.0-0.9 [facility] Estimated GFR (MDRD) Amer 118 mL/min >60 [facility] Comment on above: GFR Calc Estimated GFR (MDRD) Non-Af Amer 97 mL/min >60 [facility] Comment on above: Non- GFR Calc Lyme Disease IgG Ab 30 kDa Band Absent . [facility] Lyme Disease IgG Ab 93 kDa Band Absent . [facility] Lyme Disease IgG [place] Interp Negative . [facility] Comment on above: Positive: 5 of the f ollowing Borrelia-specific bands: 18,23,28,30,39,41,45,58, 66, and 93. Negative: No bands or banding patterns which do not meet positive criteria. Lyme Disease IgM Ab (Western Blot) Negative . [facility] Comment on above: Note: An equivocal o r positive EIA result followed by anegative Line Blot result is considered NEGATIVE. Anequivocal or positive EIA result followed by a positiveLine Blot is considered POSITIVE by the CDC.Positive: 2 of the following bands: 23,39 or 41Negative: No bands or banding patterns which do not meetpositive criteria.Criteria for positivity are those recommended byCDC/ASTPHLD. p23=Osp C, q39=cvxecgdobCwbt:Sera from individuals with the following may cross [...] testingto improve the sensitivity and specificity of testing.[facility] offers test code 524206 Lyme Disease Serology withReflex to aid in the diagnosis of Lyme Disease. RBC Folate Hemolysate 495.0 ng/mL Not Estab. [facility] Red Blood Cell Folate 1207 ng/mL >498 [facility] HANDY MAN Antibody <0.2 AI 0.0-0.9 [facility] Thyroid Stimulating Hormone (TSH) 0.82 uIU/mL 0.358-3.74 [facility] Vitamin B6 Level 3.9 ug/L 3.4-65.2 [facility] Comment on above: Deficiency: <3.4 Mar ginal: 3.4 - 5.1 Adequate: >5.1 Vitamin D 25-Hydroxy 61.9 ng/mL [facility] Comment on above: Vitamin D 25(OH) Sta tus Range Deficiency <20 ng/mL (50nmol/L) Insufficiency 20 - 30 ng/mL (50 - 75 nmol/L) Sufficiency 30 - 100 ng/mL (75 - 250 nmol/L) Toxicity >100 ng/mL (>250 nmol/L) Whole Blood Vitamin B1 Level 129.0 nmol/L 66.5-200.0 [facility] Platelets bldOrdered By: Reinaldo Swain on 08-09-2022 Platelets (Bld) [#/Vol] 243 10*3/uL 150-450 [facility] Protein Test strip Ql (U)Ord ered By: Caryn Swain on 08-09-2022 Protein Ql (U) 30 mg/dl Negative [facility] Serum Borrelia burgdorferi 4 1kD IgG antibody detection by immunoblotOrdered By: Caryn Swain on 08-09-2022 B. burgdorferi 41kD IgG IB Ql (S) Absent . [facility] Serum Borrelia burgdorferi 6 6kD IgG antibody detection by immunoblotOrdered By: Caryn Swain on 08-09-2022 B. burgdorferi 66kD IgG IB Ql (S) Absent . [facility] Serum DNA double strand anti body assay (units/volume)Ordered By: Caryn Swain on 08-09-2022 DNA double strand Ab Qn (S) 23 [IU]/mL 0-9 [facility] Comment on above: Negative <5 Equivoca l 5 - 9 Positive >9 Serum Michelle-1 antibody assay (u nits/volume)Ordered By: Caryn Swain on 08-09-2022 Michelle-1 extractable nuclear Ab Qn (S) <0.2 AI 0.0-0.9 [facility] Serum Scl-70 extractable nuc lear antibody assay (units/volume)Ordered By: Caryn Swain on 08-09-2022 SCL-70 extractable nuclear Ab Qn (S) <0.2 AI 0.0-0.9 [facility] Serum Leal extractable nucl ear antibody detectionOrdered By: Caryn Swain on 08-09-2022 Leal extractable nuclear Ab Ql (S) <0.2 AI 0.0-0.9 [facility] Serum [id number] measu rement by electrophoresisOrdered By: Caryn Swain on 08-09-2022 Alpha 1 globulin Elph [Mass/Vol] 0.2 g/dL 0.0-0.4 [facility] Alpha 1 globulin Elph [Mass/Vol] 0.7 g/dL 0.4-1.0 [facility] Serum classic neutrophil cyt oplasmic antibody assay (units/volume)Ordered By: Caryn Swain on 08-09-2022 Neutrophil cytoplasmic Ab.classic Qn (S) <1:20 titer Neg:<1:20 [facility] Serum cyclic citrullinated p eptide IgG antibody assay (units/volume)Ordered By: Caryn Swain on 08-09-2022 Cyclic citrullinated peptide IgG Qn 0 units 0-19 [facility] Comment on above: Negative <20 Weak po sitive 20 - 39 Moderate positive 40 - 59 Strong positive >59Performed at: [facility] [id number] Director: Samuel Wheeler MD, Phone: [phone] at: [place] [id number] Director: Adam Regalado PhD, Phone: [phone] at: [address] [place] [id number] Director: Cinthia Kumar PhD, Phone: [phone] Serum globulin measurement ( mass/volume)Ordered By: Caryn Swain on 08-09-2022 Globulin (S) [Mass/Vol] 2.5 g/dL 2.2-3.9 [facility] Serum or plasma C reactive p rotein measurement (mass/volume)Ordered By: Caryn Swain on 08-09-2022 CRP [Mass/Vol] mg/L 0.0-3.0 [facility] Comment on above: C-Reactive Protein ( CRP) provides useful information for thediagnosis, therapy and monitoring of inflammatory processesand associated diseases. For the evaluation of Relative Riskfor Cardiovascular Disease, a High Sensitivity CRP (HSCRP)should be ordered. Serum or plasma IgA measurem ent (mass/volume)Ordered By: Caryn Swain on 08-09-2022 IgA [Mass/Vol] 86 mg/dL 64-422 [facility] Serum or plasma IgG measurem ent (mass/volume)Ordered By: Caryn Swain on 08-09-2022 IgG [Mass/Vol] 603 mg/dL 586-1602 [facility] Serum or plasma IgM measurem ent (mass/volume)Ordered By: Caryn Swain on 08-09-2022 IgM [Mass/Vol] 118 mg/dL 26-217 [facility] Serum or plasma albumin zaid urement (mass/volume)Ordered By: Caryn Swain on 08-09-2022 Albumin [Mass/Vol] 3.6 g/dL 3.2-5.0 [facility] Serum or plasma albumin/glob ulin mass ratioOrdered By: Caryn Swain on 08-09-2022 Albumin/Globulin [Mass ratio] 1.2 {ratio} 0.9-2.4 [facility] Serum or plasma angiotensin converting enzyme measurement (enzymatic activity/volume)Ordered By: Caryn Swain on 08-09-2022 Angiotensin converting enzyme [Catalytic activity/Vol] 87 U/L 14-82 [facility] Serum or plasma beta globuli n measurement by electrophoresis (mass/volume)Ordered By: Caryn Swain on 08-09-2022 Beta globulin Elph [Mass/Vol] 0.9 g/dL 0.7-1.3 [facility] Serum or plasma calcitriol m easurement (mass/volume)Ordered By: Caryn Swain on 08-09-2022 1,25-dihydroxyvitamin D3 [Mass/Vol] 71.5 pg/mL 24.8-81.5 [facility] Serum or plasma calcium zaid urement (mass/volume)Ordered By: Caryn Swain 08-09-2022 Calcium [Mass/Vol] 8.1 mg/dL 8.5-10.1 [facility] Serum or plasma complement C 3 measurement (mass/volume)Ordered By: Caryn Swain on 08-09-2022 Complement C3 [Mass/Vol] 135 mg/dL 82-167 [facility] Serum or plasma complement C 4 measurement (mass/volume)Ordered By: Caryn Swain on 08-09-2022 Complement C4 [Mass/Vol] 28 mg/dL 12 [facility] Serum or plasma creatinine m easurement (mass/volume)Ordered By: Caryn Swain on 08-09-2022 Creatinine [Mass/Vol] 0.64 mg/dL 0.55-1.02 [facility] Comment on above: The validity of the calculated GFR & GFRAA in patients over 70 years has not been determined. Clinical correlation is essential. Serum or plasma gamma globul in measurement by electrophoresis (mass/volume)Ordered By: Caryn Swain on 08-09-2022 Gamma globulin Elph [Mass/Vol] 0.6 g/dL 0.4-1.8 [facility] Serum or plasma immunoelectr ophoresis interpretation (nominal result)Ordered By: Caryn Swain on 08-09-2022 Interpretation IEP [Interp] Comment . [facility] Comment on above: No monoclonality det ected. Serum or plasma urea nitroge n measurement (mass/volume)Ordered By: Caryn Swain on 08-09-2022 Urea nitrogen [Mass/Vol] 11 mg/dL 7-18 [facility] Serum or plasma uric acid me asurement (mass/volume)Ordered By: Caryn Swain on 08-09-2022 Urate [Mass/Vol] 3.1 mg/dL 2.6-6.0 [facility] Comment on above: The drugs N-Acetylcy steine and Metamizole may falsely depress this assay. Serum perinuclear neutrophil cytoplasmic antibody titer by immunofluorescenceOrdered By: Caryn Swain on 08-09-2022 Neutrophil cytoplasmic Ab.perinuclear IF (S) [Titer] <1:20 titer Neg:<1:20 [facility] Comment on above: The presence of posi tive fluorescence exhibiting P-ANCA orC-ANCA patterns alone is not specific for the diagnosis ofWegener's Granulomatosis (WG) or microscopic polyangiitis.Decisions about treatment should not be based solely onANCA IFA results. The [employer] Consensusrecommends follow up testing of positive sera with both MT-3 and MPO-ANCA enzyme immunoassays. As many as 5% serumsamples are positive only by EIA. Ref. AM J Clin [id number];111:507-513. Serum tissue transglutaminas e IgA antibody assay (units/volume)Ordered By: Caryn Swain on 08-09-2022 tTG IgA Qn (S) <2 U/mL 0-3 [facility] Comment on above: Negative 0 - 3 Weak Positive 4 - 10 Positive >10 Tissue Transglutaminase (tTG) has been identified as the endomysial antigen. Studies have demonstr- ated that endomysial IgA antibodies have over 99% specificity for gluten sensitive enteropathy. Squamous epithelial cells de tection in urine sediment by light microscopyOrdered By: Caryn Swain on 08-09-2022 Epithelial cells.squamous LM Ql (Urine sed) 0-5 SEEN /hpf 5-10 [facility] Synovial fluid Borrelia sundar dorferi 45kD IgG antibody detection by immunoblotOrdered By: Caryn Swain on 08-09-2022 B. burgdorferi 45kD IgG IB Ql (Syn fld) Absent . [facility] Synovial fluid Borrelia sundar dorferi 58kD IgG antibody detection by immunoblotOrdered By: Caryn Swain on 08-09-2022 B. burgdorferi 58kD IgG IB Ql (Syn fld) Absent . [facility] Thin prep Papanicolaou smear with manual screeningOrdered By: Caryn Swain on 08-09-2022 Thin prep Papanicolaou smear with manual screening 27 U/L 15-37 [facility] Thin prep Papanicolaou smear with manual screening 7 5-15 [facility] Thin prep Papanicolaou smear with manual screening 41.0 % 34.0-46.6 [facility] Thin prep Papanicolaou smear with manual screening 1.5 0.7-1.7 [facility] Thin prep Papanicolaou smear with manual screening Negative . [facility] Comment on above: HLA-B*27 [id number] allele interpretation for all loci based on IMGT/HLAdatabase version 3.44This test was developed and its performance characteristicsdetermined by [employer]. It has not been cleared or approvedby the Food and Drug Administration.[facility] CLIA ID Number [id number] test was performed using PCR (Polymerase ChainReaction)/SSOP (Sequence Specific Oligonucleotide Probes)technique. SBT (Sequence Based Typing) and/or SSP(Sequence Specific Primers) may be used as supplementalmethods when necessary. Please contact [facility] at if you have any questions. Director of [facility] Dr Sree John, PhD Total protein bloodOrdered B y: aCryn Swain on 08-09-2022 Protein [Mass/Vol] 6.0 g/dL 6.0-8.5 [facility] Urine blood detectionOrdered By: Caryn Swain on 08-09-2022 RBC Ql (U) 10 /ul Negative [facility] RBC Ql (U) 0-5 SEEN /hpf 0-5 [facility] Urine clarityOrdered By: Reinaldo Swain on 08-09-2022 Clarity (U) Sl. Cloudy Clear [facility] Urine color determinationOrd ered By: Caryn Swain on 08-09-2022 Color (U) Yellow Yellow [facility] Urine glucose detectionOrder ed By: Caryn Swain on 08-09-2022 Glucose Ql (U) Normal mg/dl Normal [facility] Urine leukocyte esterase det ection by dipstickOrdered By: Caryn Swain on 08-09-2022 Leukocyte esterase Test strip Ql (U) 25 /ul Negative [facility] Urine pHOrdered By: Caryn Pete on 08-09-2022 pH (U) 7.0 [pH] 5.0 - 8.0 [facility] Urine sediment bacteria coun t by microscopy (number/high power field)Ordered By: Caryn Swain on 08-09-2022 Bacteria LM.HPF (Urine sed) [#/Area] 1 /[HPF] None Seen [facility] Urine specific gravity measu rementOrdered By: Caryn Swain on 08-09-2022 Specific gravity (U) [Rel density] 1.010 1.002-1.03 0 [facility] Urobilinogen Auto test strip Ql (U)Ordered By: Caryn Swain on 08-09-2022 Urobilinogen Ql (U) Normal mg/dl Normal [facility] Basophil percentageOrdered B y: Dr. Zaldivar on 07-18-2022 Bilirubin [Mass/Vol] 0.50 mg/dL 0.20-1.00 [facility] Comment on above: For patients on eltr ombopag therapy, use of Dimension [place] TBIL is not recommended. Chloride [Moles/Vol] 106 mmol/L 98-107 [facility] Glucose [Mass/Vol] 83 mg/dL 74-106 [facility] Potassium [Moles/Vol] 4.0 mmol/L 3.5-5.1 [facility] Comment on above: Slight Hemolysis, Re sult may be falsely increased. Protein [Mass/Vol] 7.0 g/dL 6.4-8.2 [facility] Sodium [Moles/Vol] 139 mmol/L 136-145 [facility] Laboratory - Chemistry and C hemistry - challengeOrdered By: Dr. Zaldivar on 07-18-2022 ALP [Catalytic activity/Vol] 108 U/L 45-117 [facility] ALT [Catalytic activity/Vol] 30 U/L 13-56 [facility] CO2 [Moles/Vol] 27.0 mmol/L 21.0-32.0 [facility] Globulin (S) [Mass/Vol] 3.4 g/dL 2.2-4.2 [facility] Urea nitrogen/Creatinine [Mass ratio] 31.9 mg/mg 10-20 [facility] No Panel InformationOrdered By: Dr. Zaldiavr on 07-18-2022 Estimated GFR (MDRD) Amer 120 mL/min >60 [facility] Comment on above: GFR Calc Estimated GFR (MDRD) Non-Af Amer 99 mL/min >60 [facility] Comment on above: Non- GFR Calc Serum or plasma albumin zaid urement (mass/volume)Ordered By: Dr. Zaldivar on 07-18-2022 Albumin [Mass/Vol] 3.6 g/dL 3.2-5.0 [facility] Serum or plasma albumin/glob ulin mass ratioOrdered By: Dr. Zaldivar on 07-18-2022 Albumin/Globulin [Mass ratio] 1.1 {ratio} 0.9-2.4 [facility] Serum or plasma calcium zaid urement (mass/volume)Ordered By: Dr. Zaldivar on 07-18-2022 Calcium [Mass/Vol] 8.5 mg/dL 8.5-10.1 [facility] Serum or plasma creatinine m easurement (mass/volume)Ordered By: Dr. Zaldivar on 07-18-2022 Creatinine [Mass/Vol] 0.63 mg/dL 0.55-1.02 [facility] Comment on above: The validity of the calculated GFR & GFRAA in patients over 70 years has not been determined. Clinical correlation is essential. Serum or plasma urea nitroge n measurement (mass/volume)Ordered By: Dr. Zaldivar on 07-18-2022 Urea nitrogen [Mass/Vol] 20 mg/dL 7-18 [facility] Thin prep Papanicolaou smear with manual screeningOrdered By: Dr. Zaldivar on 07-18-2022 Thin prep Papanicolaou smear with manual screening 30 U/L 15- [facility] Comment on above: Slight Hemolysis, Re sult may be falsely increased. Thin prep Papanicolaou smear with manual screening 6 5-15 [facility] Laboratory - Miscellaneous t estsOrdered By: Dr. Peterson on 05-08-2022 Service comment (Unsp spec) [Interp] Comment . [facility] Comment on above: Levels of Specific I [...] 05-08-2022 Scallop Allergen <0.10 kU/L Class 0 [facility] Sesame Seed Allergen IgE Antibody <0.10 kU/L [facility] 0 [facility] Comment on above: Performed at: [address] [id number] Director: Samuel Wheeler MD, Phone: [phone] Shrimp Allergen <0.10 kU/L Class 0 [facility] Serum black walnut IgE antib carlos assay (units/volume)Ordered By: Dr. Peterson on 05-08-2022 Black Peck IgE Qn (S) <0.10 kU/L Class 0 [facility] Serum clam IgE antibody assa y (units/volume)Ordered By: Dr. Peterson on 05-08-2022 Clam IgE Qn (S) <0.10 kU/L Class 0 [facility] Serum codfish IgE antibody a ssay (units/volume)Ordered By: Dr. Peterson on 05-08-2022 Codfish IgE Qn (S) <0.10 kU/L Class 0 [facility] Serum corn IgE antibody assa y (units/volume)Ordered By: Dr. Peterson on 05-08-2022 Dupo IgE Qn (S) <0.10 kU/L Class 0 [facility] Serum cow milk IgE antibody assay (units/volume)Ordered By: Dr. Peterson on 05-08-2022 Cow milk IgE Qn (S) <0.10 kU/L Class 0 [facility] Serum egg white IgE antibody assay (units/volume)Ordered By: Dr. Peterson on 05-08-2022 Egg white IgE Qn (S) <0.10 kU/L Class 0 [facility] Serum peanut IgE antibody as say (units/volume)Ordered By: Dr. Peterson on 05-08-2022 Peanut IgE Qn (S) <0.10 kU/L Class 0 [facility] Serum soybean IgE antibody a ssay (units/volume)Ordered By: Dr. Peterson on 05-08-2022 Soybean IgE Qn (S) <0.10 kU/L Class 0 [facility] Serum wheat IgE antibody ass ay (units/volume)Ordered By: Dr. Peterson on 05-08-2022 Wheat IgE Qn (S) <0.10 kU/L Class 0 [facility] No Panel InformationOrdered By: Dr. Peterson on 04-03-2022 Whole Blood Vitamin B1 Level 122.7 nmol/L 66.5-200.0 [facility] Comment on above: Performed at: [address] [id number] Director: Samuel Wheeler MD, Phone: [phone] Serum or plasma folate measu rement (mass/volume)Ordered By: Dr. Peterson on 04-03-2022 Folate [Mass/Vol] 13.00 ng/mL 3.1-55.4 [facility] Comment on above: Slight Hemolysis, Re sult may be falsely increased. Absolute lymphocyte countOrd ered By: Dr. Douglas on 01-15-2022 Lymphocytes Auto (Unsp spec) [#/Vol] 1.35 10*3/uL 0.83-4.51 [facility] Basophil percentageOrdered B y: Dr. Douglas on 01-15-2022 Basophil percentage < 0.2 AI 0.0-0.9 [facility] Basophils/100 WBC (Bld) 0.7 % 0-1 [facility] Bilirubin [Mass/Vol] 0.50 mg/dL 0.20-1.00 [facility] Comment on above: For patients on eltr ombopag therapy, use of Dimension [place] TBIL is not recommended. Chloride [Moles/Vol] 106 mmol/L 98-107 [facility] Cholesterol [Mass/Vol] 284 mg/dL <200 [facility] Comment on above: <200 mg/dL Desirable 200-240 mg/dL Borderline >240 mg/dL High Risk Eosinophils/100 WBC (Bld) 2.2 % 0-5 [facility] Glucose [Mass/Vol] 90 mg/dL 74-106 [facility] Neutrophils (Bld) [#/Vol] 2.4 10*3/uL 2.0-7.7 [facility] Neutrophils/100 WBC (Bld) 57.1 % 47-70 [facility] Potassium [Moles/Vol] 4.1 mmol/L 3.5-5.1 [facility] Protein [Mass/Vol] 6.3 g/dL 6.4-8.2 [facility] Sodium [Moles/Vol] 141 mmol/L 136-145 [facility] Triglyceride [Mass/Vol] 77 mg/dL <199 [facility] Comment on above: The drugs N-Acetylcy steine and Metamizole may falsely depress this assay.Serum Triglycerides Reference Interval Normal <150 mg/dL Borderline high 150 - 199 mg/dL High 200 - 499 mg/dL Very High > or = 500 mg/dL WBC (Bld) [#/Vol] 4.1 10*3/uL 4.4-11.0 [facility] Blood erythrocytes count (nu mber/volume)Ordered By: Dr. Douglas on 01-15-2022 RBC (Bld) [#/Vol] 4.28 10*6/uL 4.2-5.4 [facility] Blood hemoglobin measurement (mass/volume)Ordered By: Dr. Douglas on 01-15-2022 Hemoglobin (Bld) [Mass/Vol] 13.9 g/dL 12.0-15.0 [facility] Blood lymphocytes/100 leukoc ytesOrdered By: Dr. Douglas on 01-15-2022 Lymphocytes/100 WBC (Bld) 32.6 % 19-41 [facility] Blood monocytes/100 leukocyt esOrdered By: Dr. Douglas on 01-15-2022 Monocytes/100 WBC (Bld) 7.2 % 0-10 [facility] Blood platelet mean volumeOr dered By: Dr. Douglas on 01-15-2022 Platelet mean volume (Bld) [Entitic vol] 9.0 fL 6.2-12.0 [facility] Determination of erythrocyte mean corpuscular volume (MCV)Ordered By: Dr. Douglas on 01-15-2022 MCV (RBC) [Entitic vol] 97.7 fL 81-99 [facility] Erythrocyte sedimentation ra teOrdered By: Dr. Douglas on 01-15-2022 ESR (Bld) [Velocity] 14 mm/h 0-30 [facility] Hematocrit Auto (Bld) [Volum e fraction]Ordered By: Dr. Douglas on 01-15-2022 Hematocrit (Bld) [Volume fraction] 41.8 % 37-47 [facility] Iron measurement (mass/mass) Ordered By: Dr. Douglas on 01-15-2022 Iron (Unsp spec) [Mass/Mass] 116 ug/dL 50-170 [facility] Laboratory - Chemistry and C hemistry - challengeOrdered By: Dr. Douglas on 01-15-2022 Albumin [Mass/Vol] 3.3 g/dL 2.9-4.4 [facility] ALP [Catalytic activity/Vol] 94 U/L 45-117 [facility] ALT [Catalytic activity/Vol] 22 U/L 13-56 [facility] CO2 [Moles/Vol] 29.0 mmol/L 21.0-32.0 [facility] Cobalamin (Vitamin B12) [Mass/Vol] 744 pg/mL 211-911 [facility] Globulin (S) [Mass/Vol] 2.9 g/dL 2.2-4.2 [facility] Magnesium [Mass/Vol] 2.3 mg/dL 1.6-2.6 [facility] Urea nitrogen/Creatinine [Mass ratio] 19.3 mg/mg 10-20 [facility] Laboratory - Hematology and Cell countsOrdered By: Dr. Douglas on 01-15-2022 Erythrocyte distribution width (RBC) [Entitic vol] 44.1 fL 35.1-43.9 [facility] Erythrocyte distribution width (RBC) [Ratio] 12.4 % 11.6-14.6 [facility] Immature granulocytes/100 WBC (Bld) 0.200 % 0.0-0.9 [facility] Comment on above: IG% - Immature Granu locytes (promyelocytes, myelocytes and metamyelocytes) > 1% indicates that a LEFT SHIFT is Present. MCH (RBC) [Entitic mass] 32.5 pg 27.0-32.0 [facility] Nucleated RBC/100 WBC (Bld) [Ratio] 0 % 0-5 [facility] MCHC Auto (RBC) [Mass/Vol]Or dered By: Dr. Douglas on 01-15-2022 MCHC (RBC) [Mass/Vol] 33.3 g/dL 32-36 [facility] No Panel InformationOrdered By: Dr. Douglas on 01-15-2022 Addendum Document Comment: . [facility] Comment on above: SPE shows decreased total protein.Performed at: [email or web address] [id number] Director: Adam Regalado PhD, Phone: [phone] Qpduz-4-Yjepenbvo 0.3 g/dL 0.0-0.4 [facility] Itssq-0-Zpywowapq 0.8 g/dL 0.4-1.0 [facility] Anti-Nuclear Antibody Screen Positive Negative [facility] Comment on above: Performed at: CB - [facility] [address] [id number] Director: Adam Regalado PhD, Phone: [phone] reported result: Positive Edited by: BAYORN on 01/23/22:1101 AMENDED REPORT 01/23/22 1101 SCOTT-DIRECT previously reported as: Positive H Performed at: CB - [facility] [address] [id number] Director: Adam Regalado PhD, Phone: [phone] [employer] B Antibody <0.2 AI 0.0-0.9 [facility] Estimated GFR (MDRD) Amer 121 mL/min >60 [facility] Comment on above: GFR Calc Estimated GFR (MDRD) Non-Af Amer 100 mL/min >60 [facility] Comment on above: Non- GFR Calc Gamma Globulins 0.5 g/dL 0.4-1.8 [facility] HANDY MAN Antibody <0.2 AI 0.0-0.9 [facility] Vitamin D 25-Hydroxy 65.6 ng/mL [facility] Comment on above: Vitamin D 25(OH) Sta tus Range Deficiency <20 ng/mL (50nmol/L) Insufficiency 20 - 30 ng/mL (50 - 75 nmol/L) Sufficiency 30 - 100 ng/mL (75 - 250 nmol/L) Toxicity >100 ng/mL (>250 nmol/L) Platelets bldOrdered By: Dr. Douglas on 01-15-2022 Platelets (Bld) [#/Vol] 395 10*3/uL 150-450 [facility] Protein Fractions Elph [Inte rp]Ordered By: Dr. Douglas on 01-15-2022 Protein Fractions [Interp] Comment . [facility] Comment on above: Protein electrophore sis scan will follow via computer,mail, or planned giving officer delivery. Serum DNA double strand anti body assay (units/volume)Ordered By: Dr. Douglas on 01-15-2022 DNA double strand Ab Qn (S) 12 [IU]/mL 0-9 [facility] Comment on above: Negative <5 Equivoca l 5 - 9 Positive >9 Serum Michelle-1 antibody assay (u nits/volume)Ordered By: Dr. Douglas on 01-15-2022 Michelle-1 extractable nuclear Ab Qn (S) <0.2 AI 0.0-0.9 [facility] Serum Scl-70 extractable nuc lear antibody assay (units/volume)Ordered By: Dr. Douglas on 01-15-2022 SCL-70 extractable nuclear Ab Qn (S) <0.2 AI 0.0-0.9 [facility] Serum Leal extractable nucl ear antibody detectionOrdered By: Dr. Douglas on 01-15-2022 Leal extractable nuclear Ab Ql (S) <0.2 AI 0.0-0.9 [facility] Serum albumin to globulin ra tyalor by protein electrophoresisOrdered By: Dr. Douglas on 01-15-2022 Albumin/Globulin Elph [Mass ratio] 1.4 0.7-1.7 [facility] Serum globulin measurement ( mass/volume)Ordered By: Dr. Douglas on 01-15-2022 Globulin (S) [Mass/Vol] 2.4 g/dL 2.2-3.9 [facility] Serum or plasma C reactive p rotein measurement (mass/volume)Ordered By: Dr. Douglas on 01-15-2022 CRP [Mass/Vol] mg/L 0.0-3.0 [facility] Comment on above: C-Reactive Protein ( CRP) provides useful information for thediagnosis, therapy and monitoring of inflammatory processesand associated diseases. For the evaluation of Relative Riskfor Cardiovascular Disease, a High Sensitivity CRP (HSCRP)should be ordered. Serum or plasma albumin zaid urement (mass/volume)Ordered By: Dr. Douglas on 01-15-2022 Albumin [Mass/Vol] 3.4 g/dL 3.2-5.0 [facility] Serum or plasma albumin/glob ulin mass ratioOrdered By: Dr. Douglas on 01-15-2022 Albumin/Globulin [Mass ratio] 1.2 {ratio} 0.9-2.4 [facility] Serum or plasma beta globuli n measurement by electrophoresis (mass/volume)Ordered By: Dr. Douglas on 01-15-2022 Beta globulin Elph [Mass/Vol] 0.9 g/dL 0.7-1.3 [facility] Serum or plasma calcium zaid urement (mass/volume)Ordered By: Dr. Douglas on 01-15-2022 Calcium [Mass/Vol] 8.9 mg/dL 8.5-10.1 [facility] Serum or plasma cholesterol in HDL measurement (mass/volume)Ordered By: Dr. Douglas on 01-15-2022 Cholesterol in HDL [Mass/Vol] 103 mg/dL >40 [facility] Comment on above: The drugs N-Acetylcy steine and Metamizole may falsely depress this assay. Reference Range HDL <40 mg/dL Low HDL Cholesterol HDL >or= 60 mg/dL High HDL Cholesterol Serum or plasma cholesterol in VLDL measurement (mass/volume)Ordered By: Dr. Douglas on 01-15-2022 Cholesterol in VLDL [Mass/Vol] 15 mg/dL 5-40 [facility] Serum or plasma creatinine m easurement (mass/volume)Ordered By: Dr. Douglas on 01-15-2022 Creatinine [Mass/Vol] 0.62 mg/dL 0.55-1.02 [facility] Comment on above: The validity of the calculated GFR & GFRAA in patients over 70 years has not been determined. Clinical correlation is essential. Serum or plasma ferritin prashant surement (mass/volume)Ordered By: Dr. Douglas on 01-15-2022 Ferritin [Mass/Vol] 124 ng/mL 8-252 [facility] Serum or plasma low density lipoprotein (LDL) cholesterol measurement (mass/volume)Ordered By: Dr. Douglas on 01-15-2022 Cholesterol in LDL [Mass/Vol] 166 mg/dL 0-130 [facility] Serum or plasma urea nitroge n measurement (mass/volume)Ordered By: Dr. Douglas on 01-15-2022 Urea nitrogen [Mass/Vol] 12 mg/dL 7-18 [facility] Serum or plasma uric acid me asurement (mass/volume)Ordered By: Dr. Doulgas on 01-15-2022 Urate [Mass/Vol] 3.0 mg/dL 2.6-6.0 [facility] Comment on above: The drugs N-Acetylcy steine and Metamizole may falsely depress this assay. Serum rheumatoid factor dete ctionOrdered By: Dr. Douglas on 01-15-2022 Rheumatoid factor Ql (S) < 10.0 IU/mL <15 [facility] Thin prep Papanicolaou smear with manual screeningOrdered By: Dr. Douglas on 01-15-2022 Thin prep Papanicolaou smear with manual screening 15 U/L 15-37 [facility] Thin prep Papanicolaou smear with manual screening 6 5-15 [facility] Thin prep Papanicolaou smear with manual screening See comment [facility] Comment on above: Result: Not Observed Total protein bloodOrdered B y: Dr. Douglas on 01-15-2022 Protein [Mass/Vol] 5.7 g/dL 6.0-8.5 [facility] Laboratory - Microbiology an d Antimicrobial susceptibilityOrdered By: Dr. Douglas on 01-03-2022 SARS-CoV-2 (COVID-19) RNA EZE+probe Ql (Unsp spec) Not detected Not Detect [facility] Comment on above: Normal Reference Ran ge: Not DetectedMethod:(RT-PCR) real-time reverse transcriptase PCRLuminex ANJEL Instrument*The Food and Drug Administration (FDA) has [...] or has had recent exposure. COLONOSCOPY SCREENINGon - [facility] Laboratory - Chemistry and C hemistry - challengeon 11-09-2021 Free T4 [Mass/Vol] 1.24 ng/dL 0.76-1.46 [facility] Work Phone: No Panel Informationon 11-09 Thyroid Stimulating Hormone (TSH) 1.94 uIU/mL 0.358-3.74 [facility] Work Phone: Absolute lymphocyte counton 05-24-2021 Lymphocytes Auto (Unsp spec) [#/Vol] 1.52 10*3/uL 0.83-4.51 [facility] Work Phone: Basophil percentageon 2021 Basophils/100 WBC (Bld) 0.6 % 0-1 [facility] Work Phone: Eosinophils/100 WBC (Bld) 3.1 % 0-5 [facility] Work Phone: Neutrophils (Bld) [#/Vol] 2.9 10*3/uL 2.0-7.7 [facility] Work Phone: Neutrophils/100 WBC (Bld) 57.1 % 47-70 [facility] Work Phone: WBC (Bld) [#/Vol] 5.2 10*3/uL 4.4-11.0 [facility]: Blood erythrocytes count (nu mber/volume)on 05-24-2021 RBC (Bld) [#/Vol] 3.95 10*6/uL 4.2-5.4 [facility] Work [facility]: Blood hemoglobin measurement (mass/volume)on 05-24-2021 Hemoglobin (Bld) [Mass/Vol] 12.1 g/dL 12.0-15.0 [facility] Work Phone: Blood lymphocytes/100 leukoc yteson 05-24-2021 Lymphocytes/100 WBC (Bld) 29.5 % 19-41 [facility] Work Phone: Blood monocytes/100 leukocyt eson 05-24-2021 Monocytes/100 WBC (Bld) 9.5 % 0-10 [facility] Work Phone: Blood platelet mean volumeon 05-24-2021 Platelet mean volume (Bld) [Entitic vol] 9.5 fL 6.2-12.0 [facility] Work Phone: Determination of erythrocyte mean corpuscular volume (MCV)on 05-24-2021 MCV (RBC) [Entitic vol] 93.9 fL 81-99 [facility] Work Phone: [phone] Erythrocyte sedimentation ra tony 05-24-2021 ESR (Bld) [Velocity] 9 mm/h 0-30 [facility]: [phone] Hematocrit Auto (Bld) [Volum e fraction]on 05-24-2021 Hematocrit (Bld) [Volume fraction] 37.1 % 37-47 [facility] Work Phone: [phone] Laboratory - Hematology and Cell countson 05-24-2021 Erythrocyte distribution width (RBC) [Entitic vol] 42.8 fL 35.1-43.9 [facility] Work Phone: [phone] Erythrocyte distribution width (RBC) [Ratio] 12.4 % 11.6-14.6 [facility] Work Phone: [phone] Immature granulocytes/100 WBC (Bld) 0.200 % 0.0-0.9 [facility] Work Phone: [phone] Comment on above: IG% - Immature Granu locytes (promyelocytes, myelocytes and metamyelocytes) > 1% indicates that a LEFT SHIFT is Present. MCH (RBC) [Entitic mass] 30.6 pg 27.0-32.0 [facility] Work Phone: [phone] Nucleated RBC/100 WBC (Bld) [Ratio] 0 % 0-5 [facility] Work Phone: [phone] MCHC Auto (RBC) [Mass/Vol]on 05-24-2021 MCHC (RBC) [Mass/Vol] 32.6 g/dL 32-36 [facility] Work Phone: [phone] Platelets bldon 05-24-2021 Platelets (Bld) [#/Vol] 254 10*3/uL 150-450 [facility] Work Phone: [phone] Post Operative Note - ORon 0 05-16-2017 Post Operative Note - OR Post Operative Note:PreOp Diagnosis: chronic painPost-Procedure Diagnosis: chronic painProcedure: BAHA attract removalSurgeon: mowryResident/Fellow/Othe r Commercial Light Fixture Assembler: mastersAnesthesia: macEstimated Blood Loss (mL): noneSpecimen: yesFindings: baha attract magnet removedOperative Report Dictated:Dictation: yesDictated by: Sandoval of Dictation: [id number] job number: [id number]/Cosignatu re/Attestation:Attending Attestation I was present for the entire procedureElectronic Signatures:Ashley Scott) (Signed 16-May-2017 16:47) Authored: Post Operative Note, Signature/Cosignature/Att estationLast Updated: 16-May-2017 16:47 by Ashley Scott) Normal [facility] Preop Checkliston 05-16-2017 Preop Checklist [...] 14:10 by Nayana Farrar (STAFF N) Normal [facility] [place] Surgical Pathology Depar tmenton 05-16-2017 [facility] Surgical Pathology Department Name AYESHA CASTREJON Pathologist: HERACLIO GREY MD, PhDDate of Procedure: 05/16/2017Date Received: 05/19/2017Date Reported 06/03/2017Submitting Physician: ASHLEY SCOTT MDLocation: Other External # FINAL DIAGNOSISBAHA RIGHT EAR MAGNET: --COCHLEAR EAR MAGNET, 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 Clinical History:Chronic pain right eargross only: attention Dr. Grey, re? to cochlearSpecimens Submitted As:A: BAHA RIGHT EAR MAGNET Gross Description:Received fresh labeled with the patient's name and hospital number, is a magnetwith the inscription Cochlear lot [id number]. The metallic surfaces are smooth andshiny. Soft tissue is not present. A photograph has been taken. 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 09-05-2016 Left ventricular Ejection fraction 55 % Invalid Interpretation Code [employer] Work Phone: [phone] Office Visiton 09-11-2015 Documentation of current medications (procedure) Done Invalid Interpretation Code [employer] [facility] Work Phone: [phone] Protein mass conc Done [employer] Work Phone: [phone] Clinical Lists Updateon 05-18 Cholesterol 242 mg/dL Invalid Interpretation Code [employer] [facility] Work Phone: [phone] HDL Cholesterol 101 mg/dL Invalid Interpretation Code [employer] Work Phone: [phone] LDL Cholesterol 127 mg/dL Invalid Interpretation Code [employer] [facility] Work Phone: [phone] Thyroid stimulating hormone (TSH) 4.31 u[iU]/mL High [employer] Work Phone: [phone] Triglyceride 70 mg/dL Invalid Interpretation Code [employer] [facility] Work Phone: [phone] very low density lipoproteins 14 mg/dL Invalid Interpretation Code [employer] [facility] Work Phone: [phone] Office Visiton 08-24-2014 cardiac risk group B Invalid Interpretation Code [facility] Work Phone: [phone] General cardiovascular disease 10Y risk [#] John'Diana 2 % Invalid Interpretation Code [facility] Work Phone: [phone] Tobacco smoking status NHIS Former smoker [facility] Work Phone: [phone] Tobacco use CPHS Former smoker Invalid Interpretation Code [facility] Work Phone: [phone] Clinical Lists Update: 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 04-28-2014 Anion gap 5 mmol/L Invalid Interpretation Code [facility] Work Phone: [phone] Anion gap molar conc 5 mmol/L [facility] Work Phone: [phone] BUN/Creatinine Ratio 37.1 mg/mg High [facility] Work Phone: [phone] Calcium 8.6 mg/dL Invalid Interpretation Code [facility] Work Phone: [phone] Chloride 107 mmol/L Invalid Interpretation Code [facility] Work Phone: [phone] CO2 30.0 mmol/L Invalid Interpretation Code [facility] Work Phone: [phone] CO2 ppres (BldV) 30.0 mmol/L [facility] Work Phone: [phone] Creatinine 0.7 mg/dL Invalid Interpretation Code [facility] Work Phone: [phone] Erythrocytes (RBC) 4.0 10*6/uL Low [facility] Work Phone: [phone] Glucose 83 mg/dL Invalid Interpretation Code [facility] Work Phone: [phone] Glucose mass conc 83 mg/dL [facility] Work Phone: [phone] Hematocrit (HCT) 38.0 % Invalid Interpretation Code [facility] Work Phone: [phone] Hematocrit Volume Fraction (Bld) 38.0 % [facility] Work Phone: [phone] Hemoglobin (HGB) 12.3 g/dL Invalid Interpretation Code [facility] Work Phone: [phone] MCH 30.8 pg Invalid Interpretation Code [facility] Work Phone: [phone] MCH Entitic mass (RBC) 30.8 pg [facility] Work [phone] MCHC 32.4 g/dL Invalid Interpretation Code [facility] Work Phone: [phone] MCHC mass conc (RBC) 32.4 g/dL [facility] Work [phone] MCV 95.0 fL Invalid Interpretation Code [facility] Work [phone] MCV Entitic volume (RBC) 95.0 fL [facility] Work Phone: [phone] Platelets 225 10*3/mm3 Invalid Interpretation Code [facility] Work [phone] Platelets #/vol (Bld) 225 10*3/mm3 [facility] Work [phone] Potassium 3.7 mmol/L Invalid Interpretation Code [facility] Work [phone] RBC #/vol (Bld) 4.0 10*6/uL Low [facility] Work [phone] Sodium 142 mmol/L Invalid Interpretation Code [facility] Work Phone: [phone] Urea nitrogen 26 mg/dL High [facility] Work [phone] WBC #/vol (Bld) 3.3 10*3/uL Low [facility] Work Phone: [phone] WBC (Leukocytes) 3.3 10*3/uL Low [facility] Work Phone: [phone] Office Visiton 08-18-2013 Alcoholism counseling (procedure) no Invalid Interpretation Code [facility] Work Phone: [phone] Protein mass conc no [facility] Work Phone: [phone] Clinical Lists Update: 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 03-30-2013 Thyroxine (T4) 11.5 ug/dL Invalid Interpretation Code [facility] Work Phone: [phone] EKG Report: [facility] ECG Obse rvationson 08-12-2012 GE use only - for [employer] import when terms are not otherwise specified 399 ms Invalid Interpretation Code [facility] Work Phone: [phone] QTc Knight 399 ms [facility] Work Phone: [phone] Replaced Document: Ric CUMMINGS Observationson 08-12-2012 EKG QRS axis 36 deg [facility] Work Phone: [phone] electrocardiogram interpretation Sinus Rhythm - frequent ectopic ventricular beat s # VECs = 2BORDERLINE RHYTHM Invalid Interpretation Code [facility] Work Phone: Interpretation Sinus Rhythm - frequ ent ectopic ventricular beat s # VECs = 2BORDERLINE RHYTHM [facility] Work Phone: P [place] 48 deg [facility] Work Phone: P wave axis, electrocardiogram 48 deg Invalid Interpretation Code [facility] Work Phone: MT Interval 174 ms [facility] Work Phone: MT interval, electrocardiogram 174 ms Invalid Interpretation Code [facility] Work Phone: Pulse (Heart Rate) 70 /min Invalid Interpretation Code [facility] Work Phone: Pulse (Heart Rate) 401 ms Invalid Interpretation Code [facility] Work Phone: QRS axis, electrocardiogram 36 deg Invalid Interpretation Code [facility] Work Phone: QRS Duration 94 ms [facility] Work Phone: QRS duration, electrocardiogram 94 ms Invalid Interpretation Code [facility] Work Phone: QT Interval new path ms [facility] Work Phone: QT interval, electrocardiogram new path ms Invalid Interpretation Code [facility] Work Phone: T [place] 45 deg [facility] Work Phone: T wave axis, electrocardiogram 45 deg Invalid Interpretation Code [facility] Work Phone: [phone] Clinical Lists Update: 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 06-01-2012 Thyroxine (T4) free 0.88 ng/dL Invalid Interpretation Code [facility] Work Phone: [phone] Clinical Lists Update: 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 03-26-2012 Alanine aminotransferase (ALT) 18 U/L Invalid Interpretation Code [facility] Work Phone: [phone] Alkaline phosphatase (ALP) 146 U/L High [facility] Work Phone: [phone] ALP enzyme act/vol (Bld) 146 U/L High [facility] Work Phone: [phone] Aspartate aminotransferase (AST) 15 U/L Invalid Interpretation Code [facility] Work Phone: [phone] Erythrocyte sedimentation rate 10 mm/h Invalid Interpretation Code [facility] Work Phone: [phone] Clinical Lists Update: 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 03-13-2011 Bilirubin (total) 0.50 mg/dL Invalid Interpretation Code [facility] Work Phone: [phone] Erythrocyte distribution width Ratio (RBC) 13.1 % [facility] Work Phone: [phone] MCHC 34.2 % Invalid Interpretation Code [facility] Work Phone: [phone] MCHC mass conc (RBC) 34.2 % [facility] Work Phone: [phone] RDW-CA 13.1 % Invalid Interpretation Code [facility] Work Phone: [phone] Vital Signs Date Time Vital Sign Value Performing Clinician Faci lity 09-20-2024 13:31-0400 Body height 156.[address] Malvin Douglas MD Work Phone: [facility] 09-20-2024 13:31-0400 Body mass index (BMI) [Ratio] 23.2 kg/m2 Dr. Malvin Douglas MD Work Phone: [facility] 09-20-2024 13:31-0400 Body weight 56.[address] Malvin Douglas MD Work Phone: [facility] 09-20-2024 13:31-0400 Diastolic blood pressure 84 mm[Hg] Dr. Malvin Douglas MD Work Phone: [facility] 09-20-2024 13:31-0400 Heart rate 69 /min Dr. Malvin Douglas MD Work Phone: [facility] 09-20-2024 13:31-0400 Respiratory rate 16 /min Dr. Malvin Douglas MD Work Phone: [phone] [place] [address] 09-20-2024 13:31-0400 Systolic blood pressure 148 mm[Hg] Dr. Malvin Douglas MD Work Phone: [phone] [place] [address] 08-10-2024 13:01-0400 Body height 156.[address] Malvin Douglas MD Work Phone: [phone] [place] [address] 08-10-2024 13:01-0400 Body mass index (BMI) [Ratio] 22.3 kg/m2 Dr. Malvin Douglas MD Work Phone: [phone] [place] [address] 08-10-2024 13:01-0400 Body weight 54.[address] Malvin Douglas MD Work Phone: [phone] [place] [address] 08-06-2024 11:14-0400 Body height 156.[address] Malvin Duoglas MD Work Phone: [phone] [place] [address] 08-06-2024 11:14-0400 Body mass index (BMI) [Ratio] 22.9 kg/m2 Dr. Malvin Douglas MD Work Phone: [phone] [address] [place], [place] [id number] 08-06-2024 11:14-0400 Body weight 55.[address] Malvin Douglas MD Work Phone: 6(568)135-645528 [place] [address] 06-07-2024 13:42-0400 Body mass index (BMI) [Ratio] 22.3 kg/m2 Dr. Malvin Douglas MD Work Phone: 5(816)104-227928 [place] [address] 06-07-2024 13:42-0400 Body weight 54.[address] Malvin Douglas MD Work Phone: 7(716)[phone] [place] [address] 05-10-2024 12:51-0400 Body mass index (BMI) [Ratio] 22.8 kg/m2 Dr. Malvin Douglas MD Work Phone: 7(382)930-440628 [place] [address] 05-10-2024 12:51-0400 Body weight 55.[address] Malvin Douglas MD Work Phone: 6(569)169-871928 [place] [address] 03-02-2024 15:20-0500 Body mass index (BMI) [Ratio] 23.44 kg/m2 Demarco Vogel MD Work Phone: [facility] 03-02-2024 15:20-0500 Body weight 54.43 kg Demarco Vogel MD Work Phone: [facility] 03-02-2024 15:20-0500 Diastolic blood pressure 82 mm[Hg] Demarco Vogel MD Work Phone: [facility] 03-02-2024 15:20-0500 Systolic blood pressure 134 mm[Hg] Demarco Vogel MD Work Phone: [facility] 02-26-2024 09:55-0500 Body height 152.4 cm Demarco Vogel MD Work Phone: [facility] 02-26-2024 09:55-0500 Body mass index (BMI) [Ratio] 23.44 kg/m2 Demarco Vogel MD Work Phone: [facility] 02-26-2024 09:55-0500 Body weight 54.43 kg Demarco Vogel MD Work Phone: [facility] 02-26-2024 09:55-0500 Diastolic blood pressure 78 mm[Hg] Demarco Vogel MD Work Phone: [facility] 02-26-2024 09:55-0500 Systolic blood pressure 124 mm[Hg] Demarco Vogel MD Work Phone: [facility] 12-24-2023 09:20-0500 Diastolic blood pressure 61 mm[Hg] Robyn Horvath MD Work Phone: [facility] 12-24-2023 09:20-0500 Heart rate 61 /min Robyn Horvath MD Work Phone: [facility] 12-24-2023 09:20-0500 Respiratory rate 15 /min Robyn Horvath MD Work Phone: [facility] 12-24-2023 09:20-0500 SaO2% (BldA) [Mass fraction] 99 % Robyn Horvath MD Work Phone: [facility] 12-24-2023 09:20-0500 Systolic blood pressure 122 mm[Hg] Robyn Horvath MD Work Phone: [facility] 12-24-2023 07:51-0500 Body mass index (BMI) [Ratio] 22.11 kg/m2 Robyn Horvath MD Work Phone: [facility] 12-24-2023 07:51-0500 Body temperature 96.49 [degF] Robyn Horvath MD Work Phone: [facility] 12-24-2023 07:51-0500 Body weight 52.2 kg Robyn Horvath MD Work Phone: [facility] 11-13-2023 11:03-0400 Body mass index (BMI) [Ratio] 22.09 kg/m2 Maren Sarthak PROSTHETIC AIDES TEACHER.REAL ESTATE ACCOUNTANT Work Phone: [facility] 11-13-2023 11:03-0400 Body temperature 98.01 [degF] Maren Sarthak PROSTHETIC AIDES TEACHER.REAL ESTATE ACCOUNTANT Work Phone: [facility] 11-13-2023 11:03-0400 Body weight 52.16 kg Maren Sarthak PROSTHETIC AIDES TEACHER.REAL ESTATE ACCOUNTANT Work Phone: [facility] 11-13-2023 11:03-0400 Diastolic blood pressure 76 mm[Hg] Maren Sarthak PROSTHETIC AIDES TEACHER.REAL ESTATE ACCOUNTANT Work Phone: [facility] 11-13-2023 11:03-0400 Heart rate 64 /min Maren Sarthak PROSTHETIC AIDES TEACHER.REAL ESTATE ACCOUNTANT Work Phone: [facility] 11-13-2023 11:03-0400 Respiratory rate 14 /min Maren Sarthak PROSTHETIC AIDES TEACHER.REAL ESTATE ACCOUNTANT Work Phone: [facility] 11-13-2023 11:03-0400 SaO2% (BldA) [Mass fraction] 99 % Maren Sarthak PROSTHETIC AIDES TEACHER.REAL ESTATE ACCOUNTANT Work Phone: [facility] 11-13-2023 11:03-0400 Systolic blood pressure 120 mm[Hg] Maren Herrmann REAL ESTATE ACCOUNTANT Work Phone: [facility] 10-13-2023 09:58-0400 Body height 152.4 cm Caryn Swain Jr., DO Work Phone: [facility] 10-13-2023 09:58-0400 Body mass index (BMI) [Ratio] 24.22 kg/m2 Caryn Swain Jr., DO Work Phone: [facility] 10-13-2023 09:58-0400 Body weight 56.25 kg Caryn Swain Jr., DO Work Phone: [facility] 10-13-2023 09:58-0400 Diastolic blood pressure 74 mm[Hg] Caryn Swain Jr. DO Work Phone: [facility] 10-13-2023 09:58-0400 Heart rate 65 /min Caryn Swain Jr., DO Work Phone: [facility] 10-13-2023 09:58-0400 SaO2% (BldA) [Mass fraction] 99 % Caryn Swain Jr., DO Work Phone: [facility] 10-13-2023 09:58-0400 Systolic blood pressure 130 mm[Hg] Caryn Swain Jr. DO Work Phone: [facility] 04-23-2023 13:05-0500 Body height 153.[address] Malvin Douglas Work Phone: [facility] 04-23-2023 13:05-0500 Body mass index (BMI) [Ratio] 22.1 kg/m2 Dr. Malvin Douglas Work Phone: [facility] 04-23-2023 13:05-0500 Body weight 52.[address] Malvin Douglas Work Phone: [facility] 04-23-2023 13:05-0500 Diastolic blood pressure 79 mm[Hg] Dr. Malvin Douglas Work Phone: [facility] 04-23-2023 13:05-0500 Heart rate 65 /min Dr. Malvin Douglas Work Phone: [facility] 04-23-2023 13:05-0500 Respiratory rate 18 /min Dr. Malvin Douglas Work Phone: [facility] 04-23-2023 13:05-0500 SaO2% (BldA) [Mass fraction] 99 % Dr. Malvin Douglas Work Phone: [facility] 04-23-2023 13:05-0500 Systolic blood pressure 127 mm[Hg] Dr. Malvin Douglas Work Phone: [facility] 04-02-2023 10:04-0500 Body height 152.4 cm Caryn Swain Jr., DO Work Phone: [facility] 04-02-2023 10:04-0500 Body mass index (BMI) [Ratio] 24.22 kg/m2 Caryn Swain Jr., DO Work Phone: [facility] 04-02-2023 10:04-0500 Body weight 56.25 kg Caryn Swain Jr., DO Work Phone: [facility] 04-02-2023 10:04-0500 Diastolic blood pressure 70 mm[Hg] Caryn Swain Jr., DO Work Phone: [facility] 04-02-2023 10:04-0500 Systolic blood pressure 116 mm[Hg] Caryn Swian Jr., DO Work Phone: [facility] 03-11-2023 08:22-0500 Body mass index (BMI) [Ratio] 22.1 kg/m2 Dr. Hawk Douglas Work Phone: [facility] 03-11-2023 08:22-0500 Body temperature 97.8 [degF] Dr. Hawk Douglas Work Phone: [facility] 03-11-2023 08:22-0500 Body weight 53.[address] Hawk Douglas Work Phone: [facility] 03-11-2023 08:22-0500 Diastolic blood pressure 70 mm[Hg] Dr. Hawk Douglas Work Phone: [facility] 03-11-2023 08:22-0500 Heart rate 78 /min Dr. Hawk Douglas Work Phone: [facility] 03-11-2023 08:22-0500 Respiratory rate 17 /min Dr. Hawk Douglas Work Phone: [facility] 03-11-2023 08:22-0500 SaO2% (BldA) [Mass fraction] 94 % Dr. Hawk Douglas Work Phone: [facility] 03-11-2023 08:22-0500 Systolic blood pressure 100 mm[Hg] Dr. Hawk Douglas Work Phone: [facility] 02-14-2023 08:01-0500 Body mass index (BMI) [Ratio] 23.6 kg/m2 Dr. Hawk Douglas Work Phone: [facility] 02-14-2023 08:01-0500 Body temperature 98.3 [degF] Dr. Hawk Douglas Work Phone: [facility] 02-14-2023 08:01-0500 Body weight 55.[address] Hawk Douglas Work Phone: [facility] 02-14-2023 08:01-0500 Diastolic blood pressure 78 mm[Hg] Dr. Hawk Douglas Work Phone: [facility] 02-14-2023 08:01-0500 Heart rate 84 /min Dr. Hawk Douglas Work Phone: [facility] 02-14-2023 08:01-0500 Respiratory rate 17 /min Dr. Hawk Douglas Work Phone: [facility] 02-14-2023 08:01-0500 SaO2% (BldA) [Mass fraction] 97 % Dr. Hawk Douglas Work Phone: [facility] 02-14-2023 08:01-0500 Systolic blood pressure 134 mm[Hg] Dr. Hawk Douglas Work Phone: [facility] 12-05-2022 14:23-0400 Body height 154.[address] Hawk Douglas Work Phone: [facility] 12-05-2022 14:23-0400 Body mass index (BMI) [Ratio] 23.3 kg/m2 Dr. Hawk Douglas Work Phone: [facility] 12-05-2022 14:23-0400 Body temperature 97.8 [degF] Dr. Hawk Douglas Work Phone: [facility] 12-05-2022 14:23-0400 Body weight 56.[address] Hawk Douglas Work Phone: [facility] 12-05-2022 14:23-0400 Diastolic blood pressure 70 mm[Hg] Dr. Hawk Douglas Work Phone: [facility] 12-05-2022 14:23-0400 Heart rate 72 /min Dr. Hawk Douglas Work Phone: [facility] 12-05-2022 14:23-0400 Respiratory rate 16 /min Dr. Hawk Douglas Work Phone: [facility] 12-05-2022 14:23-0400 SaO2% (BldA) [Mass fraction] 99 % Dr. Hawk Douglas Work Phone: [facility] 12-05-2022 14:23-0400 Systolic blood pressure 124 mm[Hg] Dr. Hawk Douglas Work Phone: [facility] 09-25-2022 12:33-0400 Body height 153.7 cm Caryn Swain Jr., DO Work Phone: [facility] 09-25-2022 12:33-0400 Body mass index (BMI) [Ratio] 23.97 kg/m2 Caryn Swain Jr., DO Work Phone: [facility] 09-25-2022 12:33-0400 Body temperature 98.71 [degF] Caryn Swain Jr., DO Work Phone: [facility] 09-25-2022 12:33-0400 Body weight 56.6 kg Caryn Swain Jr., DO Work Phone: [facility] 09-25-2022 12:33-0400 Diastolic blood pressure 80 mm[Hg] Caryn Swain Jr., DO Work Phone: [facility] 09-25-2022 12:33-0400 Systolic blood pressure 130 mm[Hg] Caryn Swain Jr., DO Work Phone: 7(601)623-734603 [address] 08-07-2022 11:37-0400 Body height 153.7 cm Caryn Swain Jr., DO Work Phone: 9(768)[phone] [place] [address] 08-07-2022 11:37-0400 Body mass index (BMI) [Ratio] 23.97 kg/m2 Caryn Swain Jr., DO Work Phone: [facility] 08-07-2022 11:37-0400 Body temperature 98.71 [degF] Caryn Swain Jr., DO Work Phone: [facility] 08-07-2022 11:37-0400 Body weight 56.61 kg Caryn Swain Jr., DO Work Phone: [facility] 08-07-2022 11:37-0400 Diastolic blood pressure 78 mm[Hg] Caryn Swain Jr., DO Work Phone: 8(271)[phone] [place] [address] 08-07-2022 11:37-0400 Systolic blood pressure 122 mm[Hg] Caryn Swain Jr., DO Work Phone: 1(555)797-364188 [place] [address] 08-06-2022 11:03-0400 Body height 154.[address] Hawk Douglas Work Phone: [facility] 08-06-2022 11:03-0400 Body mass index (BMI) [Ratio] 23.6 kg/m2 Dr. Hawk Douglas Work Phone: [facility] 08-06-2022 11:03-0400 Body temperature 98.6 [degF] Dr. Hawk Douglas Work Phone: [facility] 08-06-2022 11:03-0400 Body weight 56.[address] Hawk Douglas Work Phone: [facility] 08-06-2022 11:03-0400 Diastolic blood pressure 82 mm[Hg] Dr. Hawk Douglas Work Phone: [facility] 08-06-2022 11:03-0400 Heart rate 69 /min Dr. Hawk Douglas Work Phone: [facility] 08-06-2022 11:03-0400 Respiratory rate 16 /min Dr. Hawk Douglas Work Phone: [facility] 08-06-2022 11:03-0400 SaO2% (BldA) [Mass fraction] 98 % Dr. Hawk Douglas Work Phone: [facility] 08-06-2022 11:03-0400 Systolic blood pressure 120 mm[Hg] Dr. Hawk Douglas Work Phone: [facility] 04-03-2022 08:55-0500 Body height 154.[address] Hawk Douglas Work Phone: [facility] 04-03-2022 08:55-0500 Body mass index (BMI) [Ratio] 22.9 kg/m2 Dr. Hawk Douglas Work Phone: [facility] 04-03-2022 08:55-0500 Body temperature 99.6 [degF] Dr. Hawk Douglas Work Phone: [facility] 04-03-2022 08:55-0500 Body weight 55.[address] Hawk Douglas Work Phone: [facility] 04-03-2022 08:55-0500 Diastolic blood pressure 70 mm[Hg] Dr. Hawk Douglas Work Phone: [facility] 04-03-2022 08:55-0500 Heart rate 83 /min Dr. Hawk Douglas Work Phone: [facility] 04-03-2022 08:55-0500 Respiratory rate 16 /min Dr. Hawk Douglas Work Phone: [facility] 04-03-2022 08:55-0500 SaO2% (BldA) [Mass fraction] 99 % Dr. Hawk Douglas Work Phone: [facility] 04-03-2022 08:55-0500 Systolic blood pressure 110 mm[Hg] Dr. Hawk Douglas Work Phone: [facility] 12-13-2021 08:17-0400 Body height 153.7 cm Robyn Horvath MD Work Phone: [facility] 12-13-2021 08:17-0400 Body temperature 98.29 [degF] Robyn Horvath MD Work Phone: [facility] 12-13-2021 08:17-0400 Body weight 55.34 kg Robyn Horvath MD Work Phone: [facility] 12-13-2021 08:17-0400 Diastolic blood pressure 78 mm[Hg] Robyn Horvath MD Work Phone: [facility] 12-13-2021 08:17-0400 Heart rate 98 /min Robyn Horvath MD Work Phone: [facility] 12-13-2021 08:17-0400 Respiratory rate 14 /min Robyn Horvath MD Work Phone: [facility] 12-13-2021 08:17-0400 SaO2% (BldA) [Mass fraction] 99 % Robyn Horvath MD Work Phone: [facility] 12-13-2021 08:17-0400 Systolic blood pressure 104 mm[Hg] Robyn Horvath MD Work Phone: [facility] 12-04-2021 11:09-0400 Diastolic blood pressure 67 mm[Hg] Robyn Horvath MD Work Phone: [facility] 12-04-2021 11:09-0400 Heart rate 67 /min Robyn Horvath MD Work Phone: [facility] 12-04-2021 11:09-0400 Respiratory rate 16 /min Robyn Horvath MD Work Phone: [facility] 12-04-2021 11:09-0400 SaO2% (BldA) [Mass fraction] 99 % Robyn Horvath MD Work Phone: [facility] 12-04-2021 11:09-0400 Systolic blood pressure 133 mm[Hg] Robyn Horvath MD Work Phone: [facility] 12-04-2021 09:32-0400 Body temperature 98.49 [degF] Robyn Horvath MD Work Phone: [facility] 12-04-2021 09:32-0400 Body weight 54.9 kg Robyn Horvath MD Work Phone: [facility] 11-05-2021 09:42-0400 Body height 154.[address] Hawk Douglas Work Phone: [facility] Work Phone: 11-05-2021 09:42-0400 Body mass index (BMI) [Ratio] 23.3 kg/m2 Dr. Hawk Douglas Work Phone: [facility] Work Phone: 11-05-2021 09:42-0400 Body weight 56.[address] Hawk Douglas Work Phone: [facility] Work Phone: 11-05-2021 09:42-0400 Diastolic blood pressure 70 mm[Hg] Dr. Hawk Douglas Work Phone: [facility] Work Phone: 11-05-2021 09:42-0400 Heart rate 72 /min Dr. Hawk Douglas Work Phone: [facility] Work Phone: 11-05-2021 09:42-0400 Respiratory rate 16 /min Dr. Hawk Douglas Work Phone: [facility] Work Phone: 11-05-2021 09:42-0400 Systolic blood pressure 114 mm[Hg] Dr. Hawk Douglas Work Phone: [facility] Work Phone: 09-09-2016 14:48-0400 BMI (Body Mass Index) 23.24 kg/m2 [facility] Work Phone: 09-09-2016 14:48-0400 BP Diastolic 76 mm[Hg] Dgkathrynulysses Thierno [facility] Work Phone: 09-09-2016 14:48-0400 BP Systolic 106 mm[Hg] [facility] Work Phone: 09-09-2016 14:48-0400 Height 154.94 cm [facility] Work Phone: 09-09-2016 14:48-0400 Pulse (Heart Rate) 74 /min [facility] Work Phone: 09-09-2016 14:48-0400 Respiratory Rate 18 /min Yasmeenulysses Thierno [facility] Work Phone: 09-09-2016 14:48-0400 Weight 55.79 kg Yasmeenulysses [facility] Work Phone: 09-11-2015 13:51-0400 BMI (Body Mass Index) 23.99 kg/m2 Zakiya Wise RN [facility] Work Phone: 09-11-2015 13:51-0400 BP Diastolic 74 mm[Hg] Zakiya Wise RN [facility] Work Phone: 09-11-2015 13:51-0400 BP Systolic 106 mm[Hg] Zakiya Wise RN [facility] Work Phone: 09-11-2015 13:51-0400 BSA (Body Surface Area) 1.56 m2 Zakiya Wise RN [facility] Work Phone: 09-11-2015 13:51-0400 Pulse (Heart Rate) 68 /min Zakiya Wise RN [facility] Work Phone: 09-11-2015 13:51-0400 Respiratory Rate 16 /min Zakiya Wise RN [facility] Work Phone: 09-11-2015 13:51-0400 Weight 57.61 kg Zakiya Wise RN [facility] Work Phone: 08-12-2012 14:16-0400 Heart rate 70 /min Harumi Merna [facility] Work Phone: 08-12-2012 14:16-0400 Heart rate 401 ms Harumi DeFinis [facility] Work Phone: 08-02-2011 15:13-0400 Height 154.94 cm Zakiya Wise RN [facility] Work Phone: Encounters Encounter Date Encounter Type Care Provider Facility Start: 10-14-2024 ambulatory Mookie Damon Facility:[facility] Start: 10-06-2024 ambulatory Joseph Hayes NP Facility :[facility] Start: 09-20-2024 End: 09-20-2024 Patient encounter procedure Joseph Hayes 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 -[facility] Work Phone: Start: 09-20-2024 End: 09-20-[address] Malvin Douglas MD Work Phone: -[facility] Start: 09-07-2024 End: 09-07-[address] Panfilo Lyon MD -[facility] Start: 09-07-2024 End: 09-07-[address] Malvin Douglas MD Work Phone: -[facility] Start: 09-01-2024 End: 09-01-[address] Malvin Douglas MD Work Phone: [facility] Start: 09-01-2024 End: 09-01-[address] Malvin Douglas MD -[facility] Work Phone: Start: 09-01-2024 End: 09-01-2024 ambulatory Malvin Douglas Facility:[facility] Start: 08-10-2024 End: 08-10-[address] Nirmal Head MD -[facility] Work Phone: Start: 08-10-2024 End: 08-10-[address] Malvin Douglas MD Work Phone: [facility] Work Phone: Start: 08-06-2024 End: 08-06-[address] Panfilo Lyon MD -[facility] Start: 08-06-2024 End: 08-06-[address] Malvin Douglas MD Work Phone: [facility] Work Phone: Start: 08-05-2024 End: 08-05-[address] Malvin Douglas MD Work Phone: [facility] Work Phone: Start: 08-05-2024 End: 08-05-[address] Nirmal Head MD [facility] Work Phone: Start: 08-05-2024 End: 08-05-2024 ambulatory Nirmal Head Facility:[facility] Start: 07-19-2024 ambulatory Konrad Durant Facility :[facility] Start: 06-24-2024 End: 06-24-[address] Nirmal Head MD -[facility] Work Phone: Start: 06-24-2024 End: 06-24-20[facility] Start: 06-11-2024 ambulatory [facility] Facility :[facility] Start: 06-11-[address] Nirmal Head MD -Physical Therapy Work Phone: Start: 06-07-2024 End: 06-07-[address] Nirmal Head MD -[facility] Work Phone: Start: 06-07-2024 End: 06-07-2024 ambulatory [facility] Facility:[facility] Start: 05-12-2024 ambulatory [facility] Faci lity:[facility] Start: 05-10-2024 End: 05-10-[address] Nirm[facility] Work Phone: Start: 05-10-2024 End: 05-10-2024 ambulatory [facility] Facility:[facility] Start: 04-21-2024 ambulatory [facility] Faci lity:[facility] Start: 04-16-2024 Encounter for other preprocedural examination Nirmal Head [facility] Start: 04-13-2024 End: 04-13-[address] Nirmal Head MD -[facility] Work Phone: Start: 04-13-2024 End: 04-13-2024 ambulatory Nirmal [facility] Facility:[facility] Start: 04-05-2024 End: 04-05-2024 ambulatory Nirmal [facility] Facility:[facility] Start: 03-31-2024 End: 03-31-2024 ambulatory [facility] Facility:[facility] Start: 03-19-2024 End: 03-19-2024 ambulatory [facility] Facility:[facility] Start: 03-18-2024 End: 03-18-2024 ambulatory [facility] Facility:[facility] Start: 03-03-2024 End: 03-03-2024 Telephone encounter Demarco Vogel MD Work Phone: OB/Gynecology Comment on above: Pessary Start: 03-02-2024 End: 03-02-2024 ambulatory DEMARCO VOGEL Facility:[facility] Start: 03-02-2024 End: 03-02-2024 Patient encounter procedure Demarco Vogel MD Work Phone: OB/Gynecology Comment on above: Cystocele, midline ( Primary Dx); Urinary frequency Start: 02-26-2024 End: 02-26-2024 ambulatory DEMARCO VOGEL Facility:[facility] Start: 02-26-2024 End: 02-26-2024 Patient encounter procedure Demarco Vogel MD Work Phone: OB/Gynecology Comment on above: Encounter for gyneco logical examination (general) (routine) without abnormal findings (Primary Dx); Encounter for screening mammogram for malignant neoplasm of breast Start: 02-26-2024 End: 02-26-2024 Patient encounter status Demarco Vogel MD Work Phone: [facility] Start: 02-13-2024 End: 02-13-2024 ambulatory Nirmal Mollison Facility:[facility] Start: 02-05-2024 End: 02-05-2024 ambulatory Nirmal Mollison Facility:[facility] Start: 01-29-2024 End: 01-29-2024 ambulatory [facility] Facility:[facility] Start: 01-26-2024 End: 01-26-2024 [facility] Start: 12-24-2023 End: 12-24-2023 ambulatory ROBYN HORVATH Facility:[facility] Start: 12-24-2023 End: 12-24-2023 Subsequent hospital visit by physician Robyn Horvath MD Work Phone: Ambulatory Surgery Comment on above: Screen for colon can cer [Z12.11] Start: 12-15-2023 End: 12-15-2023 ambulatory Nirmal Mollison Facility:[facility] Start: 12-11-2023 End: 12-11-2023 [facility] Start: 12-09-2023 End: 12-09-2023 ambulatory [facility] Facility:[facility] Start: 11-13-2023 End: 11-13-2023 ambulatory ROBYN HORVATH Facility:[facility] Start: 11-13-2023 End: 11-13-2023 Patient encounter procedure Maren Herrmann REAL ESTATE ACCOUNTANT Work Phone: General Surgery Comment on above: Screen for colon can cer (Primary Dx); Adenomatous polyp of colon, unspecified part of colon; Family history of colon cancer in father Start: 10-15-2023 ambulatory Tameka Connolly 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 Fa cility:[facility] Start: 10-15-2023 End: 10-17-2023 ambulatory Tameka Connolly 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 Facility:[facility] Start: 10-14-2023 End: 10-14-2023 ambulatory Nirmal [facility] Facility:[facility] Start: 10-13-2023 End: 10-13-2023 Office outpatient visit 40 minutes Caryn Swain DO Work Phone: [facility] Rheumatology Comment on above: Dry mouth (Primary D x); Xerostomia; Hypoproteinemia; Hypothyroidism, unspecified type; Fibromyalgia; History of neuropathy; Keratoconjunctivitis sicca; DDD (degenerative disc disease), cervical; Lumbar degenerative disc disease; Thoracogenic scoliosis of thoracic region; Thoracic degenerative disc disease; Leukopenia, unspecified type; Lymphopenia; SCOTT positive; Dry eyes; Encounter for monitoring denosumab therapy; Family history of rheumatoid arthritis; History of fibromyalgia; History of osteoporosis; termination 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 of non-steroidal anti-inflammatories (NSAID); Long-term use of high-risk medication; Neutropenia, unspecified type; Positive double stranded DNA antibody test Start: 10-13-2023 ambulatory MALVIN DOUGLAS [facility] Start: 09-18-2023 End: 09-19-2023 Office outpatient new 45 minutes Srini Daley MD Work Phone: [facility] [place] [facility] [place] Comment on above: Diplopia (Primary Dx ); Esotropia, right eye Start: 09-18-2023 ambulatory SRINI DALEY Facility:[facility] Start: 05-23-2023 End: 05-23-[address] Malvin Douglas Work Phone: [facility] Work Phone: Start: 05-23-2023 End: 05-23-[address] Malvin Douglas Work Phone: [facility] Work Phone: Start: 04-23-2023 End: 04-23-[address] Malvin Douglas Work Phone: [facility] Work Phone: Start: 04-10-2023 End: 04-10-[address] Hawk Douglas Work Phone: [facility] Work Phone: Start: 04-10-2023 End: 04-10-[address] Hawk Douglas Work Phone: [facility] Work Phone: Start: 04-02-2023 End: 04-02-2023 Office outpatient visit 25 minutes Caryn Swain DO Work Phone: [facility] Rheumatology Comment on above: Hypothyroidism, unsp ecified type (Primary Dx); Keratoconjunctivitis sicca; History of neuropathy; Fibromyalgia; Thoracic degenerative disc disease; Thoracogenic scoliosis of thoracic region; Lumbar degenerative disc disease; DDD (degenerative disc disease), cervical; Long-term use of high-risk medication; correction current use of systemic steroids; History of osteoporosis; History of fibromyalgia; Family history of rheumatoid arthritis; Dry eyes; Leukopenia, unspecified type; Other proteinuria; Positive double stranded 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 Start: 03-11-2023 End: 03-11-[address] Hawk Douglas Work Phone: [facility] Radiology Start: 03-11-2023 End: 03-11-[address] Hawk Douglas Work Phone: [facility] Neurology Work Phone: Start: 02-14-2023 End: 02-14-[address] Hawk Douglas Work Phone: [facility] Work Phone: Start: 01-07-2023 End: 01-07-[address] Hawk Douglas Work Phone: [facility] Work Phone: Start: 01-07-2023 End: 01-07-[address] Hawk Douglas Work Phone: [facility] Work Phone: Start: 01-03-2023 End: 01-03-[address] Hawk Douglas Work Phone: [facility] Work Phone: Start: 01-03-2023 End: 01-03-[address] Hawk Douglas Work Phone: [facility] Work Phone: Start: 12-30-2022 End: 12-30-[address] Hawk Douglas Work Phone: [facility] Work Phone: Start: 12-30-2022 End: 12-30-[address] Hawk Douglas Work Phone: [facility]-Outpatient Breast Imaging Work Phone: Start: 12-05-2022 End: 12-05-[address] Hawk Douglas Work Phone: [facility] Neurology Work Phone: Start: 10-22-2022 End: 10-22-[address] Hawk Douglas Work Phone: [facility] Work Phone: Start: 10-22-2022 End: 10-22-[address] Hawk Douglas Work Phone: [facility] [place] Work Phone: Start: 09-25-2022 End: 09-25-2022 Office outpatient visit 40 minutes Caryn Swain DO Work Phone: [facility] Rheumatology Comment on above: Hypocalcemia (Primar y [...] 09-23-[address] Hawk Douglas Work Phone: [facility] Work Phone: Start: 09-23-2022 End: 09-23-[address] Hawk Douglas Work Phone: [facility]-Physical Therapy Work Phone: Start: 09-17-2022 End: 09-17-[address] Hawk Douglas Work Phone: [facility] Work Phone: Start: 09-17-2022 End: 09-17-[address] Hawk Douglas Work Phone: [facility]-Outpatient Bone Densitometry Work Phone: Start: 09-16-[address] Leland Douglas Work Phone: [facility]-Physical Therapy Work Phone: Start: 09-12-[address] Leland Douglas Work Phone: [facility]-Physical Therapy Work Phone: Start: 08-29-[address] Leland Douglas Work Phone: [facility]-Physical Therapy Work Phone: Start: 08-27-2022 End: 08-27-[address] Hawk Douglas Work Phone: [facility] Work Phone: Start: 08-27-2022 End: 08-27-[address] Hawk [facility] Work Phone: Start: 08-16-2022 End: 08-16-[address] Hawk Douglas Work Phone: [facility] Work Phone: Start: 08-16-2022 End: 08-16-[address] Hawk Douglas Work Phone: [facility] [place] Work Phone: Start: 08-13-2022 ambulatory MALVIN DOUGLAS [facility] Start: 08-09-2022 End: 08-09-[address] Hawk Douglas Work Phone: [facility] Work Phone: Start: 08-09-2022 End: 08-09-[address] Hawk Douglas Work Phone: [facility] [place] Work Phone: Start: 08-07-2022 End: 08-07-2022 Office outpatient new 45 minutes Caryn Swain DO Work Phone: [facility] Rheumatology Comment on above: Cervicalgia (Primary Dx); [...] encounter procedure Dr. Hawk Douglas Work Phone: [facility] Neurology Work Phone: Start: 07-18-2022 End: 07-18-[address] Hawk Douglas Work Phone: [facility] Work Phone: Start: 07-18-2022 End: 07-18-[address] Hawk Douglas [facility] Start: 05-13-2022 End: 05-13-[address] Hawk Douglas [facility] Start: 05-08-2022 Non-patient / Non-visit Dr. Stewart Douglas Work Phone: [facility] Start: 05-08-2022 End: 05-08-[address] Hawk Douglas Work Phone: [facility] Work Phone: Start: 05-08-2022 End: 05-08-[address] Hawk Douglas Work Phone: [facility]-Pulmonary Services/Neurology Start: 04-24-2022 End: 04-24-[address] Hawk Douglas Work Phone: [facility] Start: 04-03-2022 End: 04-03-[address] Hawk Douglas Work Phone: [facility] Work Phone: Start: 04-03-2022 End: 04-03-[address] Hawk Douglas Work Phone: [facility] Start: 04-03-2022 End: 04-03-[address] Hawk Douglas Work Phone: [facility] Start: 01-15-2022 End: 01-15-[address] Hawk Douglas Work Phone: [facility] Work Phone: Start: 01-15-2022 End: 01-15-[address] Hawk Douglas Work Phone: [facility] Start: 01-03-2022 End: 01-03-[address] Hawk Douglas Work Phone: [facility] Start: 12-17-2021 End: 12-17-[address] Hawk Douglas Work Phone: [facility] Work Phone: Start: 12-17-2021 End: 12-17-[address] Hawk Douglas Work Phone: [facility]-Outpatient Breast Imaging Start: 12-13-2021 End: 12-13-2021 Patient [...] 11-09-[address] Hawk Douglas Work Phone: [facility] Work Phone: Start: 11-09-2021 End: 11-09-[address] Hawk Douglas Work Phone: [facility] Start: 11-05-2021 End: 11-05-[address] Hawk Douglas Work Phone: [facility] Start: 05-24-2021 End: 05-24-[address] [facility] Start: 05-16-2017 End: 05-16-2017 Ambulatory Ashley Abdiwry Facility:[facility] Start: 11-13-2016 Ambulatory Demarco Talamantes Fac ility:[facility] Start: 09-12-2016 Ambulatory Reema Nelson Facili ty:[facility] Procedures Date Procedure Procedure Detail Performing Clinician Start: 09-07-2024 X-ray of cervical spine Dr. Malvin Douglas MD Work Phone: Start: 09-07-2024 X-ray of lumbosacral spine Dr. Malvin Douglas MD Work Phone: Start: 09-01-[address] Malvin Douglas MD Work Phone: Start: 09-01-2024 Vitamin D, 25-hydrox y measurement Dr. Malvin Douglas MD Work Phone: Comment on above: Vitamin D StatusDefi ciency: <20 ng/mL (50nmol/L)Insufficiency: 20-30 ng/mL (50-75 nmol/L)Sufficiency: 30-100 ng/mL (75-250 nmol/L)Toxicity: >100 ng/mL (>250 nmol/L) Start: 08-06-2024 Plain x-ray of pelvi s and lower extremity Dr. Malvin Douglas MD Work Phone: Start: 08-06-2024 X-ray of lumbar spin e, two or three views Dr. Malvin Douglas MD Work Phone: Start: 08-05-2024 MRI of joint of lowe r extremity Dr. Malvin Douglas MD Work Phone: Start: 06-24-2024 Plain X-ray of shoulder Dr. Malvin Douglas MD Work Phone: Start: 12-24-2023 Colonoscopy flx dx w/collj spec when pfrmd Maren Herrmann PROSTHETIC AIDES TEACHER.REAL ESTATE ACCOUNTANT Work Phone: Start: 12-24-2023 Colonoscopy Robyn steele MD Work Phone: Start: 05-23-2023 MRI of lumbar spine Dr. Malvin Douglas Work Phone: Start: 04-10-2023 Plain x-ray of pelvi s and lower extremity Dr. Hawk Douglas Work Phone: Start: 03-11-2023 Complete x-ray serie s of lumbar spine with bending views Dr. aHwk Douglas Work Phone: Start: 01-07-2023 Diagnostic radiograp hy of abdomen, decubitus and erect Dr. Hawk Douglas Work Phone: Start: 12-30-2022 Screening mammography Ama Douglas Work Phone: Start: 09-25-2022 End: 10-13-2023 Laboratory test result abnormal Abnormal serum KIMBERLY level Caryn Swain DO Work Phone: Start: 09-17-2022 Dual energy X-ray absorptiometry Dr. Hawk Douglas Work Phone: Start: 08-27-[address] Leland Douglas Work Phone: Start: 08-16-2022 [place] parasites identification [address]. Hawk Douglas Work Phone: Start: 08-09-2022 Plain chest X-ray Dr. Nancy Douglas Work Phone: Start: 08-09-2022 Radiography of thora cic spine Dr. Hawk Douglas Work Phone: Start: 05-13-2022 Plain chest X-ray Dr. Nancy Douglas Work Phone: Start: 04-24-2022 X-ray of both feet Dr. Hawk Douglas Work Phone: Start: 12-17-2021 Screening mammography Ama Douglas Work Phone: Start: 12-04-2021 Colonoscopy flx dx w/collj spec when pfrmd Robyn Horvath MD Work Phone: Start: 12-04-2021 Colonoscopy Robyn steele MD Work Phone: Start: 05-24-2021 Radiography of mandible Start: 05-24-2021 Complete x-ray serie s of lumbar spine with bending views Start: 05-24-2021 Radiography of thora cic spine Start: 05-24-2021 X-ray of cervical spine Start: 08-24-2018 Mammography Robyn steele MD Work Phone: Start: 05-16-2017 Anesthesia external middle & inner ear w/bx nos Ashley Scott Start: 05-16-2017 Unlisted procedure i nner ear Ashley Scott Start: 09-09-2016 End: 09-09-2016 [...] panel - S darline or Plasma Maren Herrmann PROSTHETIC AIDES TEACHER.REAL ESTATE ACCOUNTANT Work Phone: Laboratory test resu lt abnormal Abnormal serum KIMBERLY level Caryn Swain DO Work Phone: Plan of Treatment Date Care Activity Detail Author Start: 09-08-2033 Tetanus vaccination TETANUS [facility] Start: 09-08-2033 Urine microalbumin profile DTaP,Tdap,Td Vaccine (4 - Td or Tdap) [facility] Start: 12-04-2026 Colonoscopy COLONOSCOPY [facility] Start: 12-04-2026 COLORECTAL CANCER SCREENING COLORECTAL CANCER SCREENING [facility] Start: 12-23-2025 Screening for malignant neoplasm of colon [facility] Start: 09-08-2024 Tetanus vaccination TETANUS [facility] Start: 09-07-2024 X-ray of cervical spine Cerv Spine 4 or 5 Views [facility] Start: 09-07-2024 XR Cervical spine 4 or 5 Views [facility] Start: 09-07-2024 X-ray of lumbosacral spine L/S Spine Bending Flex/Ext [facility] Start: 09-07-2024 XR Spine Lumbar and Sacrum Views [facility] Start: 08-06-2024 Patient referral [facility] Work Phone: Start: 08-06-2024 Plain x-ray of pelvis and lower extremity HIP, UNI W/ Pelvis 2-3 Views [facility] Start: 08-06-2024 X-ray of lumbar spine, two or three views Lumbar Spine 2 or 3 Views [facility] Start: 08-06-2024 XR Lumbar spine 2 or 3 Views [facility] Start: 08-06-2024 XR Pelvis and Hip Views [facility] Start: 03-02-2024 End: 03-02-2024 Patient encounter procedure 03/02/2024 3:20 PM EST Office Visit OB/Gynecology [address] [place] [address] Demarco Vogel MD [address] [place], [place] [id number] Pessary Fitting OB/Gynecology Comment on above: Pessary Fitting Start: 02-26-2024 End: 02-26-2024 Patient encounter procedure 02/26/2024 9:40 AM EST Office Visit OB/Gynecology [address] [place] [address] Demarco Vogel MD [address] [place] [place] [address] annual OB/Gynecology Comment on above: annual Start: 02-18-2024 Advance Directive Discussion Advance Directive Discussion [facility] Start: 01-29-2024 End: 01-29-2024 Patient encounter procedure 01/29/2024 2:00 PM EST Office Visit [facility] [place] [facility] [place] [address] [place] [address] Srini Dlaey MD [address] [place], [place] [id number] [facility] [place] Start: 12-24-2023 End: 12-24-2023 Patient encounter procedure 12/24/2023 9:45 AM EST Appointment Ambulatory Surgery [address] [place] [address] Robyn Horvath MD [address] [address] Ambulatory Surgery Start: 12-05-2023 Colonoscopy COLONOSCOPY [facility] Start: 12-05-2023 COLORECTAL CANCER SCREENING COLORECTAL CANCER SCREENING [facility] Start: 12-05-2023 Screening for malignant neoplasm of colon [facility] Start: 11-27-2023 End: 08-26-2024 Sensormotor xm w/board liner operator zaid ocular devij w/i&r spx MT SENSORMOTOR XM W/BENEFITS CLERK ZAID OCULAR DEVIJ W/I&R SPX MT Charge Routine Diplopia Expected: 11/27/2023 (Approximate), Expires: 08/26/2024 [facility] Comment on above: Expected: 11/27/2023 (Approximate), Expi res: 08/26/2024 Start: 11-06-2023 End: 11-06-2023 Patient encounter procedure 11/06/2023 1:00 PM EDT Office Visit [facility] [place] [address] [place] [address] Umu Nash MD [address] [place] [address] [facility] [place] Start: 10-19-2023 Covid-19 Vaccine ( season) Covid-19 Vaccine () [facility] Start: 10-19-2023 Influenza vaccination INFLUENZA VACCINE (#1) [facility] Start: 10-13-2023 End: 10-13-2023 Patient encounter procedure [facility] Rheumatology Start: 09-14-2023 End: 04-02-2024 SCOTT MULTIPLEX SCRN WITH REFLEX SCOTT MULTIPLEX SCRN WITH REFLEX Lab Routine Hypothyroidism, unspecified type Keratoconjunctivitis sicca History of neuropathy Fibromyalgia Thoracic degenerative disc disease Thoracogenic scoliosis of thoracic region Lumbar degenerative disc disease DDD (degenerative disc disease), cervical Long-term use of high-risk medication correction current use of systemic steroids History of osteoporosis History of fibromyalgia Family history of rheumatoid arthritis Dry eyes Leukopenia, unspecified type Other proteinuria Positive double stranded DNA antibody test Ketonuria Other microscopic hematuria SCOTT positive Abnormal serum KIMBERLY level Expected: 09/14/2023 (Approximate), Expires: 04/02/2024 [facility] Comment on above: Expected: 09/14/2023 (Approximate), Expi res: 04/02/2024 Start: 09-14-2023 End: 04-02-2024 Angiotensin converting enzyme [Enzymatic activity/volume] in Serum or Plasma ANGIOTENSIN CONVERTING ENZYME Lab Routine Hypothyroidism, unspecified type Keratoconjunctivitis sicca History of neuropathy Fibromyalgia Thoracic degenerative disc disease Thoracogenic scoliosis of thoracic region Lumbar degenerative disc disease DDD (degenerative disc disease), cervical Long-term use of high-risk medication correction current use of systemic steroids History of osteoporosis History of fibromyalgia Family history of rheumatoid arthritis Dry eyes Leukopenia, unspecified type Other proteinuria Positive double stranded DNA antibody test Ketonuria Other microscopic hematuria SCOTT positive Abnormal serum KIMBERLY level Expected: 09/14/2023 (Approximate), Expires: 04/02/2024 [facility] Comment on above: Expected: 09/14/2023 (Approximate), Expi res: 04/02/2024 Start: 09-14-2023 End: 04-02-2024 C-reactive protein C REACTIVE PROTEIN Lab Routine Hypothyroidism, unspecified type Keratoconjunctivitis sicca History of neuropathy Fibromyalgia Thoracic degenerative disc disease Thoracogenic scoliosis of thoracic region Lumbar degenerative disc disease DDD (degenerative disc disease), cervical Long-term use of high-risk medication correction current use of systemic steroids History of osteoporosis History of fibromyalgia Family history of rheumatoid arthritis Dry eyes Leukopenia, unspecified type Other proteinuria Positive double stranded DNA antibody test Ketonuria Other microscopic hematuria SCOTT positive Abnormal serum KIMBERLY level Expected: 09/14/2023 (Approximate), Expires: 04/02/2024 [facility] Comment on above: Expected: 09/14/2023 (Approximate), Expi res: 04/02/2024 Start: 09-14-2023 End: 04-02-2024 C3 COMPLEMENT C3 COMPLEMENT Lab Routine Hypothyroidism, unspecified type Keratoconjunctivitis sicca History of neuropathy Fibromyalgia Thoracic degenerative disc disease Thoracogenic scoliosis of thoracic region Lumbar degenerative disc disease DDD (degenerative disc disease), cervical Long-term use of high-risk medication 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 History of osteoporosis History of fibromyalgia Family history of rheumatoid arthritis Dry eyes Leukopenia, unspecified type Other proteinuria Positive double stranded DNA antibody test Ketonuria Other microscopic hematuria SCOTT positive Abnormal serum KIMBERLY level Expected: 09/14/2023 (Approximate), Expires: 04/02/2024 [facility] Comment on above: Expected: 09/14/2023 (Approximate), Expi res: 04/02/2024 Start: 09-14-2023 End: 04-02-2024 C4 COMPLEMENT C4 COMPLEMENT Lab Routine Hypothyroidism, unspecified type Keratoconjunctivitis sicca History of neuropathy Fibromyalgia Thoracic degenerative disc disease Thoracogenic scoliosis of thoracic region Lumbar degenerative disc disease DDD (degenerative disc disease), cervical Long-term use of high-risk medication 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 History of osteoporosis History of fibromyalgia Family history of rheumatoid arthritis Dry eyes Leukopenia, unspecified type Other proteinuria Positive double stranded DNA antibody test Ketonuria Other microscopic hematuria SCOTT positive Abnormal serum KIMBERLY level Expected: 09/14/2023 (Approximate), Expires: 04/02/2024 [facility] Comment on above: Expected: 09/14/2023 (Approximate), Expi res: 04/02/2024 Start: 09-14-2023 End: 04-02-2024 CK CK Lab Routine Hypothyroidism, unspecified type Keratoconjunctivitis sicca History of neuropathy Fibromyalgia Thoracic degenerative disc disease Thoracogenic scoliosis of thoracic region Lumbar degenerative disc disease DDD (degenerative disc disease), cervical Long-term use of high-risk medication 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 History of osteoporosis History of fibromyalgia Family history of rheumatoid arthritis Dry eyes Leukopenia, unspecified type Other proteinuria Positive double stranded DNA antibody test Ketonuria Other microscopic hematuria SCOTT positive Abnormal serum KIMBERLY level Expected: 09/14/2023 (Approximate), Expires: 04/02/2024 [facility] Comment on above: Expected: 09/14/2023 (Approximate), Expi res: 04/02/2024 Start: 09-14-2023 End: 04-02-2024 Complete blood count with white cell differential, automated CBC, EDIF, PLATELET Lab Routine Hypothyroidism, unspecified type Keratoconjunctivitis sicca History of neuropathy Fibromyalgia Thoracic degenerative disc disease Thoracogenic scoliosis of thoracic region Lumbar degenerative disc disease DDD (degenerative disc disease), cervical Long-term use of high-risk medication correction current use of systemic steroids History of osteoporosis History of fibromyalgia Family history of rheumatoid arthritis Dry eyes Leukopenia, unspecified type Other proteinuria Positive double stranded DNA antibody test Ketonuria Other microscopic hematuria SCOTT positive Abnormal serum KIMBERLY level Expected: 09/14/2023 (Approximate), Expires: 04/02/2024 [facility] Comment on above: Expected: 09/14/2023 (Approximate), Expi res: 04/02/2024 Start: 09-14-2023 End: 04-02-2024 Comprehensive metabolic 2000 panel - Serum or Plasma COMPREHENSIVE METABOLIC PANEL Lab Routine Hypothyroidism, unspecified type Keratoconjunctivitis sicca History of neuropathy Fibromyalgia Thoracic degenerative disc disease Thoracogenic scoliosis of thoracic region Lumbar degenerative disc disease DDD (degenerative disc disease), cervical Long-term use of high-risk medication 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 History of osteoporosis History of fibromyalgia Family history of rheumatoid arthritis Dry eyes Leukopenia, unspecified type Other proteinuria Positive double stranded DNA antibody test Ketonuria Other microscopic hematuria SCOTT positive Abnormal serum KIMBERLY level Expected: 09/14/2023 (Approximate), Expires: 04/02/2024 [facility] Comment on above: Expected: 09/14/2023 (Approximate), Expi res: 04/02/2024 Start: 09-14-2023 End: 04-02-2024 SEDIMENTATION RATE, AUTOMATED SEDIMENTATION RATE, AUTOMATED Lab Routine Hypothyroidism, unspecified type Keratoconjunctivitis sicca History of neuropathy Fibromyalgia Thoracic degenerative disc disease Thoracogenic scoliosis of thoracic region Lumbar degenerative disc disease DDD (degenerative disc disease), cervical Long-term use of high-risk medication 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 History of osteoporosis History of fibromyalgia Family history of rheumatoid arthritis Dry eyes Leukopenia, unspecified type Other proteinuria Positive double stranded DNA antibody test Ketonuria Other microscopic hematuria SCOTT positive Abnormal serum KIMBERLY level Expected: 09/14/2023 (Approximate), Expires: 04/02/2024 [facility] Comment on above: Expected: 09/14/2023 (Approximate), Expi res: 04/02/2024 Start: 09-14-2023 End: 04-02-2024 SJOGREN'S AB SSA,SSB SJOGREN'S AB SSA,SSB Lab Routine Hypothyroidism, unspecified type Keratoconjunctivitis sicca History of neuropathy Fibromyalgia Thoracic degenerative disc disease Thoracogenic scoliosis of thoracic region Lumbar degenerative disc disease DDD (degenerative disc disease), cervical Long-term use of high-risk medication 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 History of osteoporosis History of fibromyalgia Family history of rheumatoid arthritis Dry eyes Leukopenia, unspecified type Other proteinuria Positive double stranded DNA antibody test Ketonuria Other microscopic hematuria SCOTT positive Abnormal serum KIMBERLY level Expected: 09/14/2023 (Approximate), Expires: 04/02/2024 [facility] Comment on above: Expected: 09/14/2023 (Approximate), Expi res: 04/02/2024 Start: 09-14-2023 End: 04-02-2024 Urinalysis dipstick W Reflex Microscopic panel - Urine URINE MICROSCOPIC Fluids Routine Hypothyroidism, unspecified type Keratoconjunctivitis sicca History of neuropathy Fibromyalgia Thoracic degenerative disc disease Thoracogenic scoliosis of thoracic region Lumbar degenerative disc disease DDD (degenerative disc disease), cervical Long-term use of high-risk medication 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 History of osteoporosis History of fibromyalgia Family history of rheumatoid arthritis Dry eyes Leukopenia, unspecified type Other proteinuria Positive double stranded DNA antibody test Ketonuria Other microscopic hematuria SCOTT positive Abnormal serum KIMBERLY level Expected: 09/14/2023 (Approximate), Expires: 04/02/2024 [facility] Comment on above: Expected: 09/14/2023 (Approximate), Expi res: 04/02/2024 Start: 09-14-2023 End: 04-02-2024 Urinalysis, reagent strip without microscopy URINALYSIS, MACRO Fluids Routine Hypothyroidism, unspecified type Keratoconjunctivitis sicca History of neuropathy Fibromyalgia Thoracic degenerative disc disease Thoracogenic scoliosis of thoracic region Lumbar degenerative disc disease DDD (degenerative disc disease), cervical Long-term use of high-risk medication 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 History of osteoporosis History of fibromyalgia Family history of rheumatoid arthritis Dry eyes Leukopenia, unspecified type Other proteinuria Positive double stranded DNA antibody test Ketonuria Other microscopic hematuria SCOTT positive Abnormal serum KIMBERLY level Expected: 09/14/2023 (Approximate), Expires: 04/02/2024 [facility] Comment on above: Expected: 09/14/2023 (Approximate), Expi res: 04/02/2024 Start: 04-02-2023 End: 04-02-2023 Patient encounter procedure 04/02/2023 10:00 AM EST Office Visit [address] [phone] Caryn Swain Jr., [address] [place] [phone] [facility] Rheumatology Start: 02-17-2023 Advance Directive Discussion Advance Directive Discussion [facility] Start: 01-07-2023 Diagnostic radiography of abdomen, decubitus and erect Abd Inc Decub and/or Erect [facility] Start: 10-18-2022 COVID-19 VACCINE ( season) COVID-19 VACCINE ( season) [facility] Start: 10-18-2022 Influenza vaccination INFLUENZA VACCINE (#1) [facility] Start: 09-25-2022 End: 09-25-2022 Patient encounter procedure 09/25/2022 12:30 PM EDT Office Visit [address] [phone] Caryn Swain Jr., [address] [place] [phone] [facility] Start: 08-09-2022 Borrelia burgdorferi blot test [facility] Start: 08-09-2022 Folic acid measurement, RBC [facility] Start: 08-09-2022 Serum immunofixation [facility] Start: 08-09-2022 Thiamine measurement [facility] Start: 08-09-2022 Vitamin B6 measurement [facility] Start: 08-09-2022 [facility] Start: 08-07-2022 End: 08-08-2023 SCOTT MULTIPLEX SCRN [...] lower extremity Expected: 08/07/2022 (Approximate), Expires: 08/08/2023 [facility] Comment on above: Expected: 08/07/2022 (Approximate), Expi [...] lower extremity Expected: 08/07/2022 (Approximate), Expires: 08/08/2023 [facility] Comment on above: Expected: 08/07/2022 (Approximate), Expi [...] lower extremity Expected: 08/07/2022 (Approximate), Expires: 08/08/2023 [facility] Comment on above: Expected: 08/07/2022 (Approximate), Expi [...] lower extremity Expected: 08/07/2022 (Approximate), Expires: 08/08/2023 [facility] Comment on above: Expected: 08/07/2022 (Approximate), Expi [...] lower extremity Expected: 08/07/2022 (Approximate), Expires: 08/08/2023 [facility] Comment on above: Expected: 08/07/2022 (Approximate), Expi [...] lower extremity Expected: 08/07/2022 (Approximate), Expires: 08/08/2023 [facility] Comment on above: Expected: 08/07/2022 (Approximate), Expi [...] lower extremity Expected: 08/07/2022 (Approximate), Expires: 08/08/2023 [facility] Comment on above: Expected: 08/07/2022 (Approximate), Expi [...] lower extremity Expected: 08/07/2022 (Approximate), Expires: 08/08/2023 [facility] Comment on above: Expected: 08/07/2022 (Approximate), Expi [...] lower extremity Expected: 08/07/2022 (Approximate), Expires: 08/08/2023 [facility] Comment on above: Expected: 08/07/2022 (Approximate), Expi [...] lower extremity Expected: 08/07/2022 (Approximate), Expires: 08/08/2023 [facility] Comment on above: Expected: 08/07/2022 (Approximate), Expi [...] lower extremity Expected: 08/07/2022 (Approximate), Expires: 08/08/2023 [facility] Comment on above: Expected: 08/07/2022 (Approximate), Expi [...] of spine Expected: 08/07/2022 (Approximate), Expires: 08/08/2023 [facility] Comment on above: Expected: 08/07/2022 (Approximate), Expi [...] lower extremity Expected: 08/07/2022 (Approximate), Expires: 08/08/2023 [facility] Comment on above: Expected: 08/07/2022 (Approximate), Expi [...] lower extremity Expected: 08/07/2022 (Approximate), Expires: 08/08/2023 [facility] Comment on above: Expected: 08/07/2022 (Approximate), Expi [...] lower extremity Expected: 08/07/2022 (Approximate), Expires: 08/08/2023 [facility] Comment on above: Expected: 08/07/2022 (Approximate), Expi [...] lower extremity Expected: 08/07/2022 (Approximate), Expires: 08/08/2023 [facility] Comment on above: Expected: 08/07/2022 (Approximate), Expi [...] lower extremity Expected: 08/07/2022 (Approximate), Expires: 08/08/2023 [facility] Comment on above: Expected: 08/07/2022 (Approximate), Expi [...] lower extremity Expected: 08/07/2022 (Approximate), Expires: 08/08/2023 [facility] Comment on above: Expected: 08/07/2022 (Approximate), Expi [...] lower extremity Expected: 08/07/2022 (Approximate), Expires: 08/08/2023 [facility] Comment on above: Expected: 08/07/2022 (Approximate), Expi [...] lower extremity Expected: 08/07/2022 (Approximate), Expires: 08/08/2023 [facility] Comment on above: Expected: 08/07/2022 (Approximate), Expi [...] lower extremity Expected: 08/07/2022 (Approximate), Expires: 08/08/2023 [facility] Comment on above: Expected: 08/07/2022 (Approximate), Expi [...] lower extremity Expected: 08/07/2022 (Approximate), Expires: 08/08/2023 [facility] Comment on above: Expected: 08/07/2022 (Approximate), [...] lower extremity Expected: 08/07/2022 (Approximate), Expires: 08/08/2023 [facility] Comment on above: Expected: 08/07/2022 (Approximate), [...] lower extremity Expected: 08/07/2022 (Approximate), Expires: 08/08/2023 [facility] Comment on above: Expected: 08/07/2022 (Approximate), Expi [...] lower extremity Expected: 08/07/2022 (Approximate), Expires: 08/08/2023 [facility] Comment on above: Expected: 08/07/2022 (Approximate), Expi [...] lower extremity Expected: 08/07/2022 (Approximate), Expires: 08/08/2023 [facility] Comment on above: Expected: 08/07/2022 (Approximate), Expi [...] of lower extremity Expected: 08/07/2022, Expires: 08/08/2023 [facility] Comment on above: Expected: 08/07/2022, Expires: 4 Start: 08-07-2022 End: 08-08-2023 XR Thoracic spine [...] of lower extremity Expected: 08/07/2022, Expires: 08/08/2023 [facility] Comment on above: Expected: 08/07/2022, Expires: 4 Start: 01-22-2022 Urine microalbumin profile DTAP,TDAP,TD (2 - Td or Tdap) [facility] Start: 02-17-2021 ADVANCE DIRECTIVE DISCUSSION ADVANCE DIRECTIVE DISCUSSION [facility] Start: 02-17-2021 DEPRESSION ASSESSMENT DEPRESSION ASSESSMENT [facility] Start: 08-25-2019 Mammography MAMMOGRAM [facility] Start: 08-25-2019 Screening for malignant neoplasm of breast Mammogram Screening [facility] Start: 05-24-2019 Shingrix Vaccine (3 of 3) Shingrix Vaccine (3 of 3) [facility] Start: 05-24-2019 Zoster vaccine hzv live for subcutaneous use ZOSTER (SHINGLES) VACCINE (3 of 3) [facility] Start: 09-08-2017 End: 09-08-2017 Appointment Appointment [facility] Work Phone: Start: 09-03-2017 Screening for malignant neoplasm of colon COLORECTAL CANCER SCREENING DISCUSSION [facility] Start: 02-15-2017 DIABETES SCREEN DIABETES SCREEN [facility] Start: 02-15-2017 Diabetes Screening Diabetes Screening [facility] Start: 09-09-2016 End: 09-09-2016 Appointment Appointment [facility] Work Phone: Start: 09-09-2016 End: 09-09-2016 Follow Up Appt 1 year Follow Up Appt 1 year [facility] Work Phone: Start: 09-09-2016 End: 09-09-2016 PFM PFM [facility] Work Phone: Start: 10-19-2015 Lipid panel Lipid Screening [facility] Start: 10-19-2015 LIPID SCREEN LIPID SCREEN [facility] Start: 09-11-2015 End: 08-27-2016 Follow Up Appt 1 year Follow Up Appt 1 year [facility] Work Phone: Start: 09-11-2015 End: 08-27-2016 PFM PFM [facility] Work Phone: Start: 12-30-2014 Pneumococcal vaccination PNEUMOCOCCAL VACCINE SERIES (2 - PCV) [facility] Start: 2014 PNEUMOCOCCAL: 65+ (1 - PCV) PNEUMOCOCCAL: 65+ (1 - PCV) [facility] Start: 08-24-2014 End: 09-11-2015 Follow Up Appt 1 year Follow Up Appt 1 year [facility] Work Phone: Start: 08-24-2014 End: 09-11-2015 PFM PFM [facility] Work Phone: Start: 08-18-2013 End: 08-18-2013 Follow Up Appt 1 year Follow Up Appt 1 year [facility] Work Phone: Start: 08-18-2013 End: 08-27-2016 Follow Up Appt Other Follow Up Appt Other [facility] Work Phone: Start: 08-18-2013 End: 08-18-2013 PFM PFM [facility] Work Phone: Start: 08-12-2012 End: 08-12-2012 Electrocardiogram, complete EKG (In office) [facility] Work Phone: Start: 08-12-2012 End: 08-12-2012 Follow Up Appt 1 year Follow Up Appt 1 year [facility] Work Phone: Start: 08-12-2012 End: 08-12-2012 PFM PFM [facility] Work Phone: Start: 08-02-2011 End: 08-27-2016 Follow Up Appt 1 year Follow Up Appt 1 year [facility] Work Phone: Start: 08-02-2011 End: 08-27-2016 Follow Up Appt Other Follow Up Appt Other [facility] Work Phone: Start: 2009 RSV VACCINE (1 - 1-dose 60+ series) RSV VACCINE (1 - 1-dose 60+ series) [facility] Start: 09-29-1999 SHINGRIX VACCINE (1 of 2) SHINGRIX VACCINE (1 of 2) [facility] Start: 1994 COLOGUARD (FIT-DNA) COLOGUARD (FIT-DNA) [facility] Start: [address] COLONOGRAPHY [facility] Start: 1994 FECAL OCCULT BLOOD FECAL OCCULT BLOOD [facility] Start: 1994 Screening for malignant neoplasm of colon [facility] Start: 1994 SIGMOIDOSCOPY SIGMOIDOSCOPY [facility] Start: 1989 Lipid panel LIPID SCREENING [facility] Start: 1989 Screening for malignant neoplasm of breast MAMMOGRAM SCREENING DISCUSSION [facility] Start: 1970 Screening for malignant neoplasm of cervix CERVICAL CANCER SCREENING DISCUSSION [facility] Start: 09-29-1967 Anxiety Screening Anxiety Screening [facility] Start: 09-29-1967 Depression Screening Depression Screening [facility] Start: 09-29-1967 HEPATITIS C SCREENING HEPATITIS C SCREENING [facility] Start: 09-29-1967 Hepatitis C screening Hepatitis C Screening [facility] Start: 1949 Hepatitis C screening HEPATITIS C VIRUS SCREENING [facility] Start: 1949 Screening for osteoporosis DEXA SCAN DISCUSSION [facility] Start: 1949 Thyroid stimulating hormone measurement TSH [facility] 24 Hour ECG [facility] Albumin [Moles/volum e] in Serum or Plasma [facility] Albumin/Globulin ratio [facility] Angiotensin converti ng enzyme [Enzymatic activity/volume] in Serum or Plasma [facility] Complement C3 [Mass/volume] in Serum or Plasma [facility] Complement C4 [Mass/volume] in Serum or Plasma [facility] Cyclic citrullinated peptide IgG Ab [Units/volume] in Serum or Plasma [facility] End: 03-27-2025 DBT Breast - bilateral screening PRATIBHA SCREENING [facility] Radiology Routine Encounter for screening mammogram for malignant neoplasm of breast 1 Occurrences starting 02/26/2024 until 03/27/2025 [facility] Work Phone: Comment on above: 1 Occurrences starting 02/26/2024 until 03/27/2025 Electrophoresis: [id number] [facility] Electrophoresis: aide ma globulin [facility] Globulin measurement [facility] Hematocrit [Volume Fraction] of Blood [facility] HLA-B27 [Presence] b y EZE with probe detection [facility] IgA [Mass/volume] in Serum or Plasma [facility] IgG [Mass/volume] in Serum or Plasma [facility] IgM [Mass/volume] in Serum or Plasma [facility] Laboratory data interpretation [facility] MR Lumbar spine [facility] Neutrophil cytoplasm ic Ab.classic [Units/volume] in Serum [facility] P-ANCA measurement [facility] Patient referral [facility] Work Phone: Protein electrophore sis panel - Serum or Plasma [facility] End: 11-12-2024 Screening colonoscopy COLONOSCOPY SCREENING Endoscopy Routine Screen for colon cancer Adenomatous polyp of colon, unspecified part of colon 1 Occurrences starting 11/13/2023 until 11/12/2024 [facility] Work Phone: Comment on above: 1 Occurrences starting 11/13/2023 until 11/12/2024 Serum protein electrophoresis [facility] SURGICAL PATHOLOGY [facility] Work Phone: Comment on above: Release Upon Ordering for 1 Occurrences starting 12/04/2021, 1 completed Tissue transglutamin ase IgA Ab [Units/volume] in Serum [facility] US Heart [facility] Immunizations Immunization Date Immunization Notes Care Provider Fa cili 09-09-2023 tetanus toxoid, reduced diphtheria toxoid, and acellular pertussis vaccine, adsorbed Dr. Malvin Douglas MD Work Phone: [facility] 11-06-2022 influenza virus vaccine, unspecified formulation Srini Daley MD Work Phone: [facility] 11-15-2021 influenza virus vaccine, unspecified formulation Caryn Swain Jr., DO Work Phone: [facility] 03-29-2019 zoster vaccine, unspecified formulation Caryn Swain Jr., DO Work Phone: [facility] 01-23-2012 tetanus toxoid, reduced diphtheria toxoid, and acellular pertussis vaccine, adsorbed Robyn Horvath MD Work Phone: [facility] Work Phone: Payers Date Payer Category Payer Self-pay [id number] 2018 Unknown [id number] 2018 Unknown [id number] 2014 Medicare [id number] 2014 Medicare [id number] 1949 Unknown [id number] 2.16.8 40.1.245034.3.579.2.983 1949 Unknown [id number] 2.16. 840.1.519662.3.579.2.594 1949 Unknown [id number] 2.16.8 40.1.955789.3.579.2.983 1949 Unknown [id number] 2.16.8 40.1.129103.3.579.2.983 Medicare [id number] Unknown [id number] Unknown [id number] 2.16.8 40.1.182039.3.579.2.462 Unknown [id number] 2.16.8 40.1.096870.3.579.2.462 Unknown [id number] 2.16.8 40.1.601069.3.579.2.462 Unknown [id number] 2.16.8 40.1.051206.3.579.2.462 Unknown [id number] 2.16.8 40.1.174758.3.579.2.462 Unknown [id number] 2.16.8 40.1.929378.3.579.2.462 Unknown [id number] 2.16.8 40.1.891464.3.579.2.462 Unknown [id number] 2.16.8 40.1.460687.3.579.2.462 Unknown [id number] 2.16.8 40.1.616290.3.579.2.462 Unknown [id number] 2.16.8 40.1.801137.3.579.2.462 Unknown [id number] 2.16.8 40.1.500136.3.579.2.462 Unknown [id number] 2.16.8 40.1.748288.3.579.2.462 Unknown [id number] 2.16.8 40.1.649945.3.579.2.462 Unknown [id number] 2.16.8 40.1.947540.3.579.2.462 Unknown [id number] 2.16.8 40.1.839191.3.579.2.462 Unknown [id number] 2.16.8 40.1.972757.3.579.2.462 Unknown [id number] 2.16.8 40.1.848324.3.579.2.462 Unknown [id number] 2.16.8 40.1.827289.3.579.2.462 Unknown [id number] 2.16.8 40.1.524021.3.579.2.462 Unknown [id number] 2.16.8 40.1.399910.3.579.2.462 Unknown [id number] 2.16.8 40.1.244617.3.579.2.462 Unknown [id number] 2.16.8 40.1.246695.3.579.2.462 Unknown [id number] 2.16.8 40.1.092297.3.579.2.462 Unknown [id number] 2.16.8 40.1.814777.3.579.2.462 Unknown [id number] 2.16.8 40.1.062397.3.579.2.462 Unknown [id number] 2.16.8 40.1.912466.3.579.2.462 Unknown [id number] 2.16.8 40.1.359660.3.579.2.462 Unknown [id number] 2.16.8 40.1.522658.3.579.2.462 Unknown [id number] 2.16.8 40.1.528448.3.579.2.462 Unknown [id number] 2.16.8 40.1.950965.3.579.2.462 Unknown [id number] 2.16.8 40.1.448223.3.579.2.462 Unknown [id number] 2.16.8 40.1.223625.3.579.2.462 Unknown [id number] 2.16.8 40.1.943299.3.579.2.462 Unknown [id number] 2.16.8 40.1.396923.3.579.2.462 Unknown [id number] 2.16.8 40.1.899690.3.579.2.462 Social History Date Type Detail Facility Start: 10-20-2020 End: 04-23-2023 Tobacco smoking status [facility] Unknown if ever smoked [facility] Start: 1950 Sex Assigned At Female [facility] Start: 12-04-2021 End: 09-20-2024 Tobacco smoking status NHIS Ex-smoker [facility] Start: 11-06-1967 End: 12-12-1975 History of tobacco use Current smoker [facility] Start: 12-04-2021 End: 10-13-2023 Tobacco use and exposure Smokeless tobacco non-user [facility] Start: 12-04-2021 End: 10-13-2023 Alcohol intake Current drinker of alcohol (finding) [facility] Start: 12-04-2021 Tobacco Comment 1976 [facility] Start: 07-01-2016 Alcohol Comment very rare [facility] Start: 1950 Sex Assigned At Not on file [facility] Start: 11-24-2021 End: 12-13-2021 Exposure to SARS-CoV-2 (event) Not sure [facility] Start: 11-06-1967 End: 12-12-1975 History of tobacco use Cigarette Smoker [facility] Start: 08-07-2022 End: 11-13-2023 History of Social function [facility] Start: 08-07-2022 End: 11-13-2023 Tobacco use panel [facility] Start: 09-18-2023 Tobacco Comment Smoked for joi ght control, but found Luis Angel so didn t need it. Quit cold Wallace. Praise the Lord!!! [facility] Start: 09-18-2023 Alcohol Comment Only on occass ion. Hot humid day!!! 1 ice cold beer, Social [facility] Start: 10-13-2023 Tobacco Comment Smoked for joi ght control, but found Luis Angel so didn't need it. Quit cold Wallace. Praise the Lord!!! [facility] Start: 11-13-2023 End: 03-02-2024 Alcoholic beverage intake Ex-drinker (finding) [facility] National Score (1-10 0), lower number is lower risk 52 [facility] Start: 04-14-2022 Gender identity Identifies as female gender (finding) [facility] Start: 04-14-2022 Sexual orientation Heterosexual (roel mcginnis) [facility] Medical Equipment Procedure Code Equipment Code Equipment Origin al Text Equipment Identifier Dates Arthroscopy, shoulder ([id number]) Tendon/ligament bone anchor, non-bioabsorbable [id number] FDA Start: 03-31-2024 Arthroscopy, shoulder Tendon/ligament bone anchor, bioabsorbable [id number] FDA Start: 03-31-2024 COCHLEAR IMPLANT [id number] MAGNET IN COMB. WITH [id number] IMPLANT FDA Start: 02-23-2016 COCHLEAR IMPLANT [id number] MAGNET IN COMB. WITH [id number] IMPLANT FDA Start: 02-23-2016 COCHLEAR IMPLANT [id number] MAGNET IN COMB. WITH [id number] IMPLANT FDA Start: 02-23-2016 COCHLEAR IMPLANT [id number] MAGNET IN COMB. WITH [id number] IMPLANT FDA Start: 02-23-2016 COCHLEAR IMPLANT [id number] MAGNET IN COMB. WITH [id number] IMPLANT FDA Start: 02-23-2016 COCHLEAR IMPLANT [id number] MAGNET IN COMB. WITH [id number] IMPLANT FDA Start: 02-23-2016 COCHLEAR IMPLANT [id number] MAGNET IN COMB. WITH [id number] IMPLANT FDA Start: 02-23-2016 COCHLEAR IMPLANT [id number] MAGNET IN COMB. WITH [id number] IMPLANT FDA Start: 02-23-2016 COCHLEAR IMPLANT [id number] MAGNET IN COMB. WITH [id number] IMPLANT FDA Start: 02-23-2016 COCHLEAR IMPLANT [id number] MAGNET IN COMB. WITH [id number] IMPLANT FDA Start: 02-23-2016 COCHLEAR IMPLANT [id number] MAGNET IN COMB. WITH [id number] IMPLANT FDA Start: 02-23-2016 COCHLEAR IMPLANT [id number] MAGNET IN COMB. WITH [id number] IMPLANT FDA Start: 02-23-2016 COCHLEAR IMPLANT [id number] MAGNET IN COMB. WITH [id number] IMPLANT FDA Start: 02-23-2016 COCHLEAR IMPLANT [id number] MAGNET IN COMB. WITH BI300 IMPLANT FDA Start: 02-23-2016 COCHLEAR IMPLANT [id number] MAGNET IN COMB. WITH BI300 IMPLANT FDA Start: 02-23-2016 COCHLEAR IMPLANT [id number] MAGNET IN COMB. WITH BI300 IMPLANT FDA Start: 02-23-2016 COCHLEAR IMPLANT [id number] MAGNET IN COMB. WITH BI300 IMPLANT FDA Start: 02-23-2016 COCHLEAR IMPLANT [id number] MAGNET IN COMB. WITH BI300 IMPLANT FDA Start: 02-23-2016 COCHLEAR IMPLANT [id number] MAGNET IN COMB. WITH BI300 IMPLANT FDA Start: 02-23-2016 COCHLEAR IMPLANT [id number] MAGNET IN COMB. WITH BI300 IMPLANT FDA Start: 02-23-2016 COCHLEAR IMPLANT [id number] MAGNET IN COMB. WITH BI300 IMPLANT FDA Start: 02-23-2016 COCHLEAR IMPLANT [id number] MAGNET IN COMB. WITH BI300 IMPLANT FDA Start: 02-23-2016 COCHLEAR IMPLANT [id number] MAGNET IN COMB. WITH BI300 IMPLANT FDA Start: 02-23-2016 COCHLEAR IMPLANT [id number] MAGNET IN COMB. WITH BI300 IMPLANT FDA Start: 02-23-2016 COCHLEAR IMPLANT [id number] MAGNET IN COMB. WITH BI300 IMPLANT FDA Start: 02-23-2016 COCHLEAR IMPLANT [id number] MAGNET IN COMB. WITH BI300 IMPLANT FDA Start: 02-23-2016 Clinical Notes 12-04-2021 to 09-20-2024 Note Date & Type Note Facility 09-20-[address] [facility] 09-20-2024 Progress note Note Date/Time September 20, 2024 2:17pm [facility] [address] [place] [address] OFFICE VISIT Date of Service: 09/20/24 MR#: [id number] Acct: [id number] Name: AYESHA CASTREJON Rep #: [id number] : 1950 Provider: ANGELA Hayes Age/Sex: 73/F Location: [facility] Status: Signed HPI HPI History of Present Illness Details: AYESHA CASTREJON, is a 73-year-old white female who presents to the office today for a cardiovascular follow-up visit. She has a history of palpitations. Her Holter monitor was performed in 2010 at which time she had sinus rhythm with rare PACs and frequent PVCs. She denies chest, arm, jaw, or neck discomfort. She acknowledges occasional palpitations during times of stress or when she needs extra pain medication. She describes this as fluttering. She denies bilateral lower extremity edema. She denies claudication. She states shortness of breath with activity such as walking uphill or steps. She denies shortness of breath at rest, orthopnea, or PND. She denies chronic cough. She denies significant, sudden weight gain. She acknowledges lightheadedness and vertigo. She denies dizziness or syncope. She states near-syncope associated with low blood sugar. This occurs once every few years. She denies blood in urine, blood in stool, or epistaxis. He denies fever with chills. She denies myalgia. She acknowledges mental fatigue since brain surgery in 2009. Her exercise level has remained stable. Intake Vital Signs 08/10/24 13:01 09/20/24 13:31 Height 5 ft 1.5 in 5 ft 1.5 in Weight: 120 lb 125 lb BMI 22.3 23.2 BP 148/84 H Blood Pressure Location Lt brachial Position Sitting Respiration 16 Pulse 69 Pulse Source NIBP Intake Visit Reasons: 1 Y FU Linoleum Tile Layer Required: No Is patient in pain?: No Allergies pseudoephedrine Allergy (Verified 09/20/24 13:35) Rapid Heart rate Medications ?Medication ?Instructions ?Recorded ?Confirmed ?Type levothyroxine 50 mcg tablet 50 mcg PO DAILY 10/03/13 0 09/20/24 History Prolia 60 mg/mL subcutaneous 60 mg subcut [id number] #1 mL 09/17/21 09/20/24 Rx syringe (denosumab) cholecalciferol (vitamin D3) 25 4,000 unit PO DAILY 09/20/24 History mcg (1,000 unit) tablet ipratropium bromide 42 mcg (0.06 2 spray intranasal MT N 04/03/22 09/20/24 History %) nasal spray gabapentin 100 mg capsule 200 mg PO QHS 04/23/2309/20 History ropinirole 1 mg tablet 1 mg PO QHS #30 tabs 4 09/20/24 Rx calcium 500 mg tablet 500 mg PO DAILY 03/17/2406/11 History omeprazole 20 mg capsule,delayed 20 mg PO QDAY 5 09/20/24 History release acetaminophen 500 mg tablet 500 mg PO Q6H PRN 09/07/24 09/20/24 History (Tylenol Extra Strength) multivitamin with minerals 1 tab PO ONCE 09/07/24 0806/11 History (Hair,Skin and Nails tablet) gabapentin 100 mg capsule 100 mg PO QAM 09/20/2409/20 History terbinafine HCl 250 mg tablet 250 mg PO QDAY 09/20/24 09/20/24 History Ejection fraction %: 60 Have you fallen in the past year?: No PFS Medical History (Updated 09/20/24 @ 14:03 by Joseph Hayes 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, 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) Lumbar radiculopathy Neurogenic claudication Foraminal stenosis of lumbar region Spondylolisthesis Leg length discrepancy Scoliosis of lumbar region due to degenerative disease of spine in adult Primary osteoarthritis, left shoulder Left rotator cuff tear Left shoulder pain Adhesive capsulitis of right [...] contraction Premature atrial contractions Surgical History (Updated 09/20/24 @ 13:41 by Layne Joseph) H/O radiofrequency ablation (RFA) of nerve of lumbar spine (~2023) History of laparoscopic cholecystectomy Hx of basal cell carcinoma excision History of eyelid surgery History of cochlear implant History of vein stripping History of shoulder surgery (~03/2024) History of tubal ligation History of hysterectomy History of tonsillectomy Family History Father CAD (coronary artery disease) Hx of CABG Mother History of permanent cardiac pacemaker placement Social History (Updated 09/20/24 @ 13:42 by Layne Joseph) Smoking Status: Former smoker how long ago did patient quit smokin alcohol intake: current alcohol intake frequency: holidays/special occasions only Alcohol type: beer and wine substance use type: does not use caffeine: Yes Type: coffee Number of servings: 1 ROS Const Const: Positive for fatigue (Had brain tumor removed on 2009-mental fatigue); Negative for weakness Eyes Eyes: Negative for change in vision ENT ENT: Negative for dizziness or balance problems Cardio Chest Pain: No Palpitations: Yes (Occasionally. Usually when stressed or needing extra pain med) feels like its: other (fluttering) Edema: None Muscle aches with walking: None Resp Respiratory: Positive for SOB with activity (Only with walking uphill or steps); Negative for SOB at rest or SOB orthopnea\SOB lying down GI GI: Negative nausea or heartburn : Negative for hematuria or frequent nighttime urination/ nocturia Musc Musc: Negative for balance problems Skin Skin: Negative non-healing lesions or rash Neuro Neuro: Positive for lightheadedness, near syncope and vertigo; Negative for dizziness, syncope or weakness Endo Endo: Positive for fatigue (Had brain tumor removed on 2010-mental fatigue) Allergy Allergy/Immunology: Negative for rash Cardiology Exam Const Appearance: cooperative, healthy appearing, comfortable and no acute distress Nutritional Appearance: average body habitus and well nourished Orientation: alert, awake and oriented x3 Head Head: normal to inspection Ears: hearing grossly normal bilaterally Nose: external nose normal Face and Sinus: face symmetric Mouth: moist mucous membranes Eyes General: appearance normal, both eyes and all related structures Eyelids: eyelids normal EOM: EOM intact bilaterally Neck Neck: normal visual inspection and no JVD Carotids: normal carotid upstroke Chest Chest inspection: normal inspection of the chest, symmetric chest movement and normal respiratory effort; Negative cough Auscultation: Bilateral: Clear to Auscultation Cardio Rate: regular rate Rhythm: regular rhythm Heart sounds: S1 normal and S2 normal; Negative rub, gallop or murmur GI GI: normal to inspection Neuro General: patient alert, patient awake, patient oriented x3 and CN's II-XI intactbilaterally Skin Skin: no rashes or lesions noted Extremities Pulses: Normal: Right Posterior Tibial Pulse, Left Posterior Tibial Pulse, RightRadial Pulse and Left Radial Pulse Lower Extremity Edema: None: Bilateral Psych Psychological: normal affect Supplemental Info Supplemental Information Echocardiogram 12/10/2018: Left ventricular systolic function is normal. The estimated ejection fraction is 60 %. Mild (1+) mitral valve insufficiency. Trivial tricuspid valve insufficiency. Trivial pulmonic valve insufficiency. Trivial pericardial effusion. There are no echocardiographic indications of cardiac tamponade. Unable to estimate RV systolic pressure/pulmonary artery pressure due to technically difficult study. Diastolic function is indeterminate. Stress test 09/12/2017: 1. Rest and stress SPECT Cardiolite nuclear imaging demonstrate relative uniform tracer uptake and myocardial perfusion appearing within normal limits. 2. The gated Cardiolite study reports an LVEF of 76 %. Assessment and Plan Assessment and Plan (1) Intermittent palpitations: Status: Acute Plan: Echocardiogram in 2018 showed LV function 60%. Stress test in August 2017 was negative for ischemia. Holter monitor in March 2010 showed ventricular ectopy at 11.5%. At this time, her palpitations are most noted during times of stress. To ensure stable, recommend to undergo repeat Holter monitor to evaluate PVC burden as well as repeat echocardiogram to reassess LV function. Based on results, further recommendation will be made. She is currently not on rate limiting medication. Recent laboratory testing with primary care provider was satisfactory. (2) Dyspnea on exertion: Status: Acute Plan: She attributes this to lack of exercise. She will undergo repeat echocardiogramand Holter monitor to assess further. Depending on results, further recommendation be made. (3) Premature ventricular contraction: Status: Acute Plan: She undergo repeat Holter monitor to evaluate ventricular ectopy. Depending results, further recommendation be made. Orders: Orders Echo Complete Today I49.3 - Ventricular premature depolarization, R00.2 - Palpitations, R06.09 - Other forms of dyspnea Cardiac Holter Monitor, 24 Hrs Today I49.3 - Ventricular premature depolarization, R06.09 - Other forms of dyspnea Plan Details Additional Comments: Patient will follow up on an as needed basis. Thank you for allowing me to participate in the care of your patient. Please don't hesitate to call if any issues arise. This note was generated using a voice recognition system and there may be incorrect words, spelling, or punctuation that were not noted when reviewing theoffice note prior to saving. Portions of this documentation were copied and pasted from previous office visitnotes to provide a cohesive continuity of the history. The note has been reviewed, edited, and updated, as necessary. Follow Up: 12 Months () Coding Level of Care Code Off vis,est,level 4 Diagnoses Intermittent palpitations R00.2 Dyspnea on exertion R06.09 Premature ventricular contraction I49.3 Coding Level of Care Code Off vis,est,level 4 Diagnoses Intermittent palpitations R00.2 Dyspnea on exertion R06.09 Premature ventricular contraction I49.3 Clinical Quality Measures Falls Risk Screening/Assistive Devices Have you fallen in the past year?: No Cardiac Ejection fraction %: 60 09/20/24 1417 <Electronically signed by Joseph JULIENC> Date _ Joseph Hayes NP 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 Cosigner Signature: Date (if applicable) CC: Dr. Malvin Douglas MD ~ [facility] Work Phone: 1(283) 993-805504-21-2025 Evaluation note* Diagnosis Onset Date Resolution Status Admit Date Adhesive capsulitis of right shoulder acute June 07, 2024 1:42pm Left shoulder pain acute June 12:46pm Degenerative scoliosis acute 2024 11:07am Lumbar radiculitis acute July 192024 11:07am Left rotator cuff tear acute [facility] 2024 12:46pm Left shoulder pain acute July 192024 12:46pm Primary osteoarthritis, left shoulder acute August 10, 2024 12:46pm Foraminal stenosis of lumbar region acute September 07, 2024 9:11am Leg length discrepancy acute [facility] 2024 9:11am Lumbar radiculopathy acute September 07, 2024 9:11am Neurogenic claudication acute J [facility] 2024 9:11am Other cervical disc degenera tion, mid-cervical region, unspecified level acute September 07, 2024 9:11am Scoliosis of lumbar region d ue to degenerative disease of spine in adult acute September 07, 2024 9:11am Spondylolisthesis acute September 072024 9:11am Dyspnea on exertion acute [facility] 2024 1:19pm Intermittent palpitations acute September 20, 2024 1:19pm Premature ventricular contraction [facility] September 20, 2024 1:19pm [facility] Work Phone: 1(837) 749-797003-24-2025 Evaluation note* Diagnosis Onset Date Resolution Status Admit Date Adhesive capsulitis of right shoulder acute May 10, 2024 12:46pm Impingement of right shoulder acute May 10, 2024 12:46pm Right rotator cuff tear acute [facility] 2024 12:46pm Right shoulder pain acute May 10, 2024 12:46pm Adhesive capsulitis of right shoulder acute June 07, 2024 1:42pm Left shoulder pain acute June 12:46pm Degenerative scoliosis acute [facility] 2024 11:07am Lumbar radiculitis acute July 192024 11:07am Left rotator cuff tear acute [facility] 2024 12:46pm Left shoulder pain acute July 192024 12:46pm Primary osteoarthritis, left shoulder acute August 10, 2024 12:46pm [facility] Work Phone: 1(477) 950-582303-24-2025 Evaluation note* Diagnosis Onset Date Resolution Status Admit Date Adhesive capsulitis of right shoulder acute May 10, 2024 12:46pm Impingement of right shoulder acute May 10, 2024 12:46pm Right rotator cuff tear acute [facility] 2024 12:46pm Right shoulder pain acute May 10, 2024 12:46pm Adhesive capsulitis of right shoulder acute June 07, 2024 1:42pm Left shoulder pain acute June 12:46pm Degenerative scoliosis acute [facility] 2024 11:07am Lumbar radiculitis acute July 192024 11:07am Left rotator cuff tear acute [facility] 2024 12:46pm Left shoulder pain acute July 192024 12:46pm Primary osteoarthritis, left shoulder acute August 10, 2024 12:46pm Foraminal stenosis of lumbar region acute September 07, 2024 9:11am Leg length discrepancy acute [facility] 2024 9:11am Lumbar radiculopathy acute September 07, 2024 9:11am Neurogenic claudication acute J jo[facility] 2024 9:11am Scoliosis of lumbar region d ue to degenerative disease of spine in adult acute September 07, 2024 9:11am Spondylolisthesis acute September 072024 9:11am [facility] Work Phone: 1(704) 466-380302-25-2025 Evaluation note* Diagnosis Onset Date Resolution Status Admit Date Right rotator cuff tear acute F ebruary 2024 12:54pm Adhesive capsulitis of right shoulder acute May 10, 2024 12:46pm Impingement of right shoulder acute May 10, 2024 12:46pm Right rotator cuff tear acute [facility] 2024 12:46pm Right shoulder pain acute May 10, 2024 12:46pm Adhesive capsulitis of right shoulder acute June 07, 2024 1:42pm Left shoulder pain acute June 12:46pm [employer] Work Phone: 1(869) 399-887802-25-2025 Evaluation note* Diagnosis Onset Date Resolution Status Admit Date Right rotator cuff tear acute F ebruary 2024 12:54pm Adhesive capsulitis of right shoulder acute May 10, 2024 12:46pm Impingement of right shoulder acute May 10, 2024 12:46pm Right rotator cuff tear acute [facility] 2024 12:46pm Right shoulder pain acute May 10, 2024 12:46pm Adhesive capsulitis of right shoulder acute June 07, 2024 1:42pm Left shoulder pain acute June 12:46pm Degenerative scoliosis acute [facility] 2024 11:07am Lumbar radiculitis acute July 192024 11:07am Left rotator cuff tear acute [facility] 2024 12:46pm Left shoulder pain acute July 192024 12:46pm Primary osteoarthritis, left shoulder acute August 10, 2024 12:46pm [facility] Work Phone: 1(865) 739-788602-12-2025 [facility] Medical Records Department [address] [place] [id number] History Physical Exam 03/31/24 1030 MR#: [id number] Acct: [id number] Name: AYESHA CASTREJON Rep #: [id number] : 1950 73 From: Nirmal Head MD PCP: Dr. Malvin Douglas MD Status:[facility] Location: [place] [address] HPI - General HPI Narrative AYESHA CASTREJON, is a 73 F who presents for right shoulder arthroscopy subacromial decompression rotator cuff repair. No changes to history and physical exam. Risks alternatives benefits as well as postoperative instructions and narcotic counseling given. Patient daughter here from [place]. Right shoulder marked they understood no further questions or concerns okay to proceed with surgery. MR#: [id number] Acct: [id number] Name: AYESHA CASTREJON Rep #: [id number] : 1950 Provider: Dr. Nirmal Head MD Age/Sex: 73/F Location: [facility] Status: Signed Intake Vital Signs 12/11/2410:28 [...] Prolia 60 mg/mL subcutaneous 60 mg subcut [id number] #1 mL 09/17/21 02/13/24 Rx syringe (denosumab) [...] shoulder arthroscopy subacromial de (more content not included)...[facility]01-15-2025 Telephone encounter Note* Telephone Encounter - Pablo Mccormick RN - 03/03/2024 2:07 PM EST Pt notified and voiced understanding. Pablo Mccormick RN [facility]01-15-2025 Miscellaneous Notes* Telephone Encounter - Pablo Mccormick RN - 03/03/2024 2:07 PM EST Pt notified and voiced understanding. Pablo Mccormick RN * Telephone Encounter - Demarco Vogel MD - 03/03/2024 1:33 PM EST yes, will send rx, if not helpful would talk w/ Dr. Mullen again. Demarco Vogel MD * Telephone Encounter - Pablo Mccormick RN - 03/03/2024 12:18 PM EST Pt notified. Pt asking about what your thoughts are on medication for overactive bladder as she is open to that. Pt is not certain she is ready to do surgery at this point. (When calling Pt back, mayleave a message if unable to reach her). * Telephone Encounter - Demarco Vogel MD - 03/03/2024 11:03 AM EST I am sorry that this didn't work out. If that one shifted to vertical, a larger one will not work and a smaller one will likely fall out. Unfortunately, I am not sure a pessary will work well for herunless we consider one that suctions in and that will be more uncomfortable to remove and have to be removed in the office. THe bleeding is from the trauma from removal and I am sorry about that. Shecan soak in some plain warm water if she is sore or use cool pack to her perineal are prn. At this point if would like further eval or discuss surger would refer to [facility] urogyn. Demarco Campos MD * Telephone Encounter - Nayana Wiggins RN - 03/03/2024 10:03 AM EST Patient seen in office yesterday for a pessary fitting. States that her pessary moved last night and she tried to reposition it. The pessary was vertical and she was unable to push it back in place. Took her 3 tries to remove it. After removal she had quite a bit of bleeding. No bleeding now. Feelsirritated with some burning when she urinates. Please advise. Nayana Wiggins RN documented [facility] Telephone encounter Note * Telephone Encounter - Demarco Vogel MD - 03/03/2024 1:33 PM EST yes, will send rx, if not helpful would talk w/ Dr. Mullen again. Demarco Vogel MD [facility]01-15-2025 Telephone encounter Note* Telephone Encounter - Pablo Mccormick RN - 03/03/2024 12:18 PM EST Pt notified. Pt asking about what your thoughts are on medication for overactive bladder as she is open to that. Pt is not certain she is ready to do surgery at this point. (When calling Pt back, mayleave a message if unable to reach her). [facility]01-15-2025 Telephone encounter Note* Telephone Encounter - Demarco Vogel MD - 03/03/2024 11:03 AM EST I am sorry that this didn't work out. If that one shifted to vertical, a larger one will not work and a smaller one will likely fall out. Unfortunately, I am not sure a pessary will work well for herunless we consider one that suctions in and that will be more uncomfortable to remove and have to be removed in the office. THe bleeding is from the trauma from removal and I am sorry about that. Shecan soak in some plain warm water if she is sore or use cool pack to her perineal are prn. At this point if would like further eval or discuss surger would refer to [facility] urogyn. Demarco Campos MD [facility]01-15-2025 Telephone encounter Note* Telephone Encounter - Nayana Wiggins RN - 03/03/2024 10:03 AM EST Patient seen in office yesterday for a pessary fitting. States that her pessary moved last night and she tried to reposition it. The pessary was vertical and she was unable to push it back in place. Took her 3 tries to remove it. After removal she had quite a bit of bleeding. No bleeding now. Feelsirritated with some burning when she urinates. Please advise. Nayana Wiggins RN [facility]01-14-2025 NoteHNO ID: [id number] Author: DEMARCO VOGEL MD Service: ? Author [...] for f/u evaluation. Discussed pros/cons pessary. Demarco Vogel, [facility]01-14-2025 History of Present illness Narrative* Demarco Vogel MD - 03/02/2024 3:11 PM EST 73 year old female presents for a [...] pessary. Demarco Vogel MD documented in this encounterDay[facility]01-[facility]-2025 NoteHNO ID: [id number] Author: DEMARCO VOGEL MD Service: ? Author [...] Multiple0 Live Births0 Comment: 2 vaginal deliveries [employer] History LMP: Hysterectomy Age at Menarche: Age at First : Age at Menopause: [employer] History Comments: Sexual Activity: Not Currently; Male; [...] discussed with the Patient or Patient's Authorized Customer Care Voice Consultant. As applicable, any other physician, advance practice provider, medical student, or other health professional student that will be observing or involved in the sensitive examination for educational or training purposes was discussed with the Patient or Authorized Customer Care Voice Consultant. The Patient or Authorized Customer Care Voice Consultant has agreed to proceed with the sensitive [...] external genitalia normal, normal Bartholin's glands, urethra, Alexis's glands, no vulvar lesions, mild cystocele and [...] or return for t (more content not included)...[facility]01-09-2025 History of Present illness Narrative* Demarco Vogel MD - 02/26/2024 9:47 AM EST Ayesha is a 73 year old who presents for an annual gynecologic exam without complaints. Postmenopausal: yes never on hormones other than vaginal estrogen. S/p hysterectomy for fibroids, benign. Ovaries remain> No vaginal bleeding. Not currently sexually active OB History T0 L2 SAB0 IAB0 Ectopic0 Multiple0 Live Births0 Comment: 2 vaginal deliveries [employer] History LMP: Hysterectomy Age at Menarche: Age at First : Age at Menopause: [employer] History Comments: Sexual Activity: Not Currently; Male; [...] discussed with the Patient or Patient's Authorized Customer Care Voice Consultant. As applicable, any other physician, advance practice provider, medical student, or other health professional student that will be observing or involved in the sensitive examination for educational or training purposes was discussed with the Patient or Authorized Customer Care Voice Consultant. The Patient or Authorized Customer Care Voice Consultant has agreed to proceed with the sensitive [...] external genitalia normal, normal Bartholin's glands, urethra, Alexis's glands, no vulvar lesions, mild cystocele and [...] needed Demarco Vogel MD documented in this encounterDay[facility] Note* Discharge Instr - Nursing - Jane Suresh RN - 12/24/2023 9:02 AM EST The patient received a copy of Colonoscopy discharge instructions that contain information for how to contact the physician who performed the procedure and when to seek medical care. [facility]11-06-2024 Miscellaneous Notes* Discharge Instr - Nursing - Jane Suresh RN - 12/24/2023 9:02 AM EST The patient received a copy of Colonoscopy discharge instructions that contain information for how to contact the physician who performed the procedure and when to seek medical care. documented in this encounterDayton Children'[facility] Hospital11-06-2024 NoteHNO ID: [id number] Author: JANE SURESH RN Service: ? Author Type: Registered Nurse Type: Nursing Progress Note Filed: 12/24/2023 09:01 Note Text: Dr Horvath at bedside to review procedure with patient and spouse.[facility]11-06-2024 Nurse Note* Jane Suresh RN - 12/24/2023 8:[address] Horvath at bedside to review procedure with patient and spouse. [facility]11-06-2024 Nurse Note* Jane Suresh RN - 12/24/2023 8:[address] Horvath at bedside to review procedure with patient and spouse. * Jane Suresh RN - 12/24/2023 8:50 AM EST Patient received in phase II via cart in left lateral position, eyes open, alert to self, event andplace, skin warm and dry, respirations regular and unlabored, abdomen soft and non distended. Denies pain or nausea. Resting comfortably on left side, brought to bedside. documented in this encounterDay[facility] Nurse Note* Jane Suresh RN - 12/24/2023 8:50 AM EST Patient received in phase II via cart in left lateral position, eyes open, alert to self, event andplace, skin warm and dry, respirations regular and unlabored, abdomen soft and non distended. Denies pain or nausea. Resting comfortably on left side, brought to bedside. [facility]11-06-2024 History and physical note* Robyn Horvath MD - 12/24/2023 8:45 AM EST HISTORY AND PHYSICAL Ayesha Castrejon : 1950 REFERRING PHYSICIAN: Robyn Horvath [address] [facility] [facility] [address] CHIEF COMPLAINT: Patient presents with: Consult HPI: [...] Last colonoscopy 11/[address] Horvath at [facility]. Sedation received: Midazolam 5 mg IV, Fentanyl 100 micrograms IV Impression: - One small polyp in the proximal descending colon, removed with a cold biopsy forceps. Resected and retrieved. - One 7 mm polyp in the proximal rectum, removed piecemeal using a cold snare. Resected and retrieved. Clips (MR conditional) were placed. 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 - The examination was otherwise normal on [...] daily as needed. May take two capsules esibrwpqaf-oiyvjqr-exylkdmpwrl (FOLINIC-PLUS) 4-50-2 mg tab Take 1 tablet [...] (FLONASE) 50 mcg/actuation nasal spray Use 1 [place] in each nostril as needed. TURMERIC ORAL [...] entered by the nurse and reviewed by mt Nursing Notes: Jeanne Pugh LPN 11/13/2023 11:19 AM Signed REVIEW OF SYSTEMS: General: The patient notes fatigue, denies weight loss, denies weight gain, denies feeling hot, anddenies feelings of cold. Eyes: The patient denies [...] Will plan for lower endoscopy. We discussed therisks and benefits of the planned endoscopy. I have informed the patient that complications can occur including failure to complete the endoscopy and perforation. Ayesha had the opportunity to ask questions concerning the planned endoscopy. My staff has also explained the procedure to the patient in understandable terms and has given the patient printed material concerning the procedure. Kaylahsmoothedilia consents to surgery. I plan to use GoLytely bowel preparation I have explained to the patient the difference between IV conscious sedation and MAC anesthesia - and I have offered either, according to the patient's wishes. I have explained that with IV conscioussedation there is no anesthesia provider available and [...] edited and updated as necessary. Maren Herrmann APRN.REAL ESTATE ACCOUNTANT [facility]11-06-2024 History and physical note* Robyn Horvath MD - 12/24/2023 8:45 AM EST HISTORY AND PHYSICAL Ayesha Castrejon : 1950 REFERRING PHYSICIAN: Robyn Horvath [address] [facility] [address] CHIEF COMPLAINT: Patient presents with: Consult HPI: [...] heartburn. Controlled with omeprazole 40 mg daily Ayseha denies dysphagia. Ayesha denies a history of ulcers/ peptic ulcer disease. Notes family history of colon issues.-Father with colon cancer Ayesha has undergone prior endoscopy. Last colonoscopy 11/[address] Horvath at [facility]. Sedation received: Midazolam 5 mg IV, Fentanyl 100 micrograms IV Impression: - One small polyp in the proximal descending colon, removed with a cold biopsy forceps. Resected and retrieved. - One 7 mm polyp in the proximal rectum, removed piecemeal using a cold snare. Resected and retrieved. Clips (MR conditional) were placed. 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 - The examination was otherwise normal on [...] daily as needed. May take two capsules otkohfepzd-dohdnsq-vfbtqyditwk (FOLINIC-PLUS) 4-50-2 mg tab Take 1 tablet [...] (FLONASE) 50 mcg/actuation nasal spray Use 1 [place] in each nostril as needed. TURMERIC ORAL [...] entered by the nurse and reviewed by mt Nursing Notes: Jeanne Pugh LPN 11/13/2023 11:19 AM Signed REVIEW OF SYSTEMS: General: The patient notes fatigue, denies weight loss, denies weight gain, denies feeling hot, anddenies feelings of cold. Eyes: The patient denies [...] Will plan for lower endoscopy. We discussed therisks and benefits of the planned endoscopy. I have informed the patient that complications can occur including failure to complete the endoscopy and perforation. Ayesha had the opportunity to ask questions concerning the planned endoscopy. My staff has also explained the procedure to the patient in understandable terms and has given the patient printed material concerning the procedure. Elida consents to surgery. I plan to use GoLytely bowel preparation I have explained to the patient the difference between IV conscious sedation and MAC anesthesia - and I have offered either, according to the patient's wishes. I have explained that with IV conscioussedation there is no anesthesia provider available and [...] and edited and updated as necessary. Maren Blair, PROSTHETIC AIDES TEACHER.REAL ESTATE ACCOUNTANT * Robyn Horvath MD - 12/24/2023 8:00 AM EST UPDATED PROCEDURAL SEDATION HISTORY AND PHYSICAL EXAMINATION [...] PHYSICIAN: Robyn Horvath [address] [facility] [address] CHIEF COMPLAINT: Patient presents with: Consult HPI: [...] Last colonoscopy 11/[address] Horvath at [facility]. Sedation received: Midazolam 5 mg IV, Fentanyl 100 micrograms IV Impression: - One small polyp in the proximal descending colon, removed with a cold biopsy forceps. Resected and retrieved. - One 7 mm polyp in the proximal rectum, removed piecemeal using a cold snare. Resected and retrieved. Clips (MR conditional) were placed. 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 - The examination was otherwise normal on [...] daily as needed. May take two capsules uvleqptpeb-zbdrson-gygwhsurwgb (FOLINIC-PLUS) 4-50-2 mg tab Take 1 tablet [...] (FLONASE) 50 mcg/actuation nasal spray Use 1 [place] in each nostril as needed. TURMERIC ORAL [...] loss, denies weight gain, denies feeling hot, anddenies feelings of cold. Eyes: The patient denies [...] Will plan for lower endoscopy. We discussed therisks and benefits of the planned endoscopy. I have informed the patient that complications can occur including failure to complete the endoscopy and perforation. Ayesha had the opportunity to ask questions concerning the planned endoscopy. My staff has also explained the procedure to the patient in understandable terms and has given the patient printed material concerning the procedure. Elida consents to surgery. I plan to use GoLytely bowel preparation I have explained to the patient the difference between IV conscious sedation and MAC anesthesia - and I have offered either, according to the patient's wishes. I have explained that with IV conscioussedation there is no anesthesia provider available and [...] edited and updated as necessary. Maren Herrmann APRN.REAL ESTATE ACCOUNTANT documented in this encounterDayton [facility]11-[facility]24 Attending History and physical note* Robyn Horvath MD - 12/24/2023 8:00 AM EST UPDATED PROCEDURAL SEDATION HISTORY AND PHYSICAL EXAMINATION [...] 8:45 AM EST HISTORY AND PHYSICAL Ayesha Casterjon : 1950 REFERRING PHYSICIAN: Robyn Horvath [address] [facility] [address] CHIEF COMPLAINT: Patient presents with: Consult HPI: [...] Last colonoscopy 11/[address] Horvath at [facility]. Sedation received: Midazolam 5 mg IV, Fentanyl 100 micrograms IV Impression: - One small polyp in the proximal descending colon, removed with a cold biopsy forceps. Resected and retrieved. - One 7 mm polyp in the proximal rectum, removed piecemeal using a cold snare. Resected and retrieved. Clips (MR conditional) were placed. 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 - The examination was otherwise normal on direct and retroflexion views. - Diverticulosis in the sigmoid colon. PATHOLOGY FINAL DIAGNOSIS A. Descending colon polyp, biopsy: - Tubular adenoma. B. Rectal polyp, biopsy: - Tubular adenoma. [facility] 12/05/2021 CURRENT MEDICATIONS Current Outpatient Medications Medication [...] daily as needed. May take two capsules izgpdjaasq-jeadnrq-hryvzarrrjj (FOLINIC-PLUS) 4-50-2 mg tab Take 1 tablet [...] (FLONASE) 50 mcg/actuation nasal spray Use 1 [place] in each nostril as needed. TURMERIC ORAL [...] entered by the nurse and reviewed by mt Nursing Notes: Jeanne Pugh LPN 11/13/2023 11:19 AM Signed REVIEW OF SYSTEMS: General: The patient notes fatigue, denies weight loss, denies weight gain, denies feeling hot, anddenies feelings of cold. Eyes: The patient denies [...] 2022 per patient Last Colonoscopy: 12/04/2021 Jeanne PughGUERO PHYSICAL EXAMINATION: General: The patient is 73 [...] Will plan for lower endoscopy. We discussed therisks and benefits of the planned endoscopy. I have informed the patient that complications can occur including failure to complete the endoscopy and perforation. Ayesha had the opportunity to ask questions concerning the planned endoscopy. My staff has also explained the procedure to the patient in understandable terms and has given the patient printed material concerning the procedure. Elida consents to surgery. I plan to use GoLytely bowel preparation I have explained to the patient the difference between IV conscious sedation and MAC anesthesia - and I have offered either, according to the patient's wishes. I have explained that with IV conscioussedation there is no anesthesia provider available and [...] edited and updated as necessary. Maren Herrmann APRN.REAL ESTATE ACCOUNTANT [facility]09-26-2024 Nurse Note* Jeanne Pugh LPN - 11/13/2023 11:48 AM EDT This Nurse reviewed and provided patient with copy of written instructions. The patient verbalized understanding and was given a number for questions. Jeanne Pugh LPN [facility]09-26-2024 Nurse Note* Jeanne Pugh LPN - 11/13/2023 11:48 AM EDT This Nurse reviewed and provided patient with copy of written instructions. The patient verbalized understanding and was given a number for questions. Jeanne Pugh LPN * Jeanne Pugh LPN - 11/13/2023 11:15 AM EDT REVIEW OF SYSTEMS: General: The patient notes fatigue, denies weight loss, denies weight gain, denies feeling hot, anddenies feelings of cold. Eyes: The patient denies [...] 12/04/2021 Jeanne Pugh LPN documented in this encounterDayton Children'[facility] Hospital09-26-2024 Nurse Note* Jeanne Pugh LPN - 11/13/2023 11:15 AM EDT REVIEW OF SYSTEMS: General: The patient notes fatigue, denies weight loss, denies weight gain, denies feeling hot, anddenies feelings of cold. Eyes: The patient denies [...] patient Last Colonoscopy: 12/04/2021 Jeanne Pugh LPN [facility]09-26-2024 History of Present illness Narrative* Maren Herrmann APRN.REAL ESTATE ACCOUNTANT - 11/13/2023 11:00 AM EDT HISTORY AND PHYSICAL Ayesha Castrejon : 1950 REFERRING PHYSICIAN: Robyn Horvath [address] [facility] [address] CHIEF COMPLAINT: Patient presents with: Consult HPI: [...] Last colonoscopy 11/[address] Horvath at [facility]. Sedation received: Midazolam 5 mg IV, Fentanyl 100 micrograms IV Impression: - One small polyp in the proximal descending colon, removed with a cold biopsy forceps. Resected and retrieved. - One 7 mm polyp in the proximal rectum, removed piecemeal using a cold snare. Resected and retrieved. Clips (MR conditional) were placed. 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 - The examination was otherwise normal on [...] daily as needed. May take two capsules ogqpdjzoyg-sreubag-dksobawbzgo (FOLINIC-PLUS) 4-50-2 mg tab Take 1 tablet [...] (FLONASE) 50 mcg/actuation nasal spray Use 1 [place] in each nostril as needed. TURMERIC ORAL [...] entered by the nurse and reviewed by mt Nursing Notes: Jeanne Pugh LPN 11/13/2023 11:19 AM Signed REVIEW OF SYSTEMS: General: The patient notes fatigue, denies weight loss, denies weight gain, denies feeling hot, anddenies feelings of cold. Eyes: The patient denies [...] Will plan for lower endoscopy. We discussed therisks and benefits of the planned endoscopy. I have informed the patient that complications can occur including failure to complete the endoscopy and perforation. Ayesha had the opportunity to ask questions concerning the planned endoscopy. My staff has also explained the procedure to the patient in understandable terms and has given the patient printed material concerning the procedure. Elida consents to surgery. I plan to use GoLytely bowel preparation I have explained to the patient the difference between IV conscious sedation and MAC anesthesia - and I have offered either, according to the patient's wishes. I have explained that with IV conscioussedation there is no anesthesia provider available and [...] edited and updated as necessary. Maren Herrmann APRN.REAL ESTATE ACCOUNTANT documented in this encounterDayton Children'S Hospital09-26-2024 NoteHNO ID: [id number] Author: MAREN HERRMANN APRN.AMILCAR Service: ? Author Type: Nurse Practitioner Type: Progress Notes Filed: 11/13/2023 11:31 Note Text: HISTORY AND PHYSICAL Ayesha Castrejon : 1950 REFERRING PHYSICIAN: Robyn Horvath [address] [facility] [address] CHIEF COMPLAINT: Patient presents with: Consult HPI: [...] Last colonoscopy 11/[address] Horvath at [facility]. Sedation received: Midazolam 5 mg IV, Fentanyl 100 micrograms IV Impression: - One small polyp in the proximal descending colon, removed with a cold biopsy forceps. Resected and retrieved. - One 7 mm polyp in the proximal rectum, removed piecemeal using a cold snare. Resected and retrieved. Clips (MR conditional) were placed. 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 - The examination was otherwise normal on [...] daily as needed. May take two capsules etjgjfudzx-sfvlpwr-kbmywhyuswz (FOLINIC-PLUS) 4-50-2 mg tab Take 1 tablet [...] (FLONASE) 50 mcg/actuation nasal spray Use 1 [place] in each nostril as needed. TURMERIC ORAL [...] OF 11/27/2010 Arthritis repair (more content not included)...[facility] 10-13-2023 History of Present illness Narrative* Caryn Swain Jr., DO - 10/13/2023 10:00 AM EDT Subjective History of Present Illness Prolia 2 started 2020. Prolia is every April and October. Presence of Pain: reports pain/discomfort Pain Location: (Everywhere) Select Pain Scale: DVPRS (Defense and Veterans Pain Rating Scale) (Adult- Cognitively Intact) DVPRS: Rest: 7- severe pain DVPRS: Activity: 7- severe pain Select Pain Scale: DVPRS (Defense and Veterans Pain Rating Scale) (Adult- Cognitively Intact) Pain Frequency: constant Pain Quality: aching. Total time spent in this encounter was 47 minutes. Patient is being evaluatedfor an unstable chronic illness that increase morbidity [...] present. Gait: Gait is intact. 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 Oriented to person, place, and time. Cranial Nerves CN II: Vision test: Glasses Dry eyes. CN III, IV, : Extraocular movements intact bilaterally. Pupils equal round and reactive to light bilaterally. Gait Normal gait. 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 (Times 2) 13. Rx given for [...] 26. Negative SSA., SSB, Chromcatin, Michelle-1, Scleroderma, HANDY MAN, Leal, Centromere, ANCA, HLA-B27, Celiac, CCP, Lyme, [...] patient to your care. documented in this [facility]08-01-2024 History of Present illness Narrative* Srini Daley MD - 09/18/2023 2:00 PM EDT Images from the original note were [...] She's unable to discern whether it's worse orbetter at near of distance. No hx of surgery for correction. Patient states that she did try a fresnel but after her brain surgery the combination of the two was too much to tolerate and she tried it3 different times without success. Patient confirms longstanding [...] scans included Lab work being done in [place] Last edited by Cordelia Raza on 09/18/2023 [...] in her father; Neurologic Disease in her brother;Thyroid Cancer in her mother; Vision Problems in her sister and sister. Ayesha reports that she quit smoking about 47 years ago. Her smoking use included cigarettes. She started smoking about 55 years ago. She has a 8 pack- year smoking history. She has never used smokeless [...] Normal Additional Tests Stereo Fly: + Animals: 3/3 Circles: 8/9 Strabismus Exam Method: APCT Fixing Eye: Left [...] 0.35 0.3 Refraction Wearing Rx Sphere Cylinder [place] Add Right Lewis +0.75 017 +2.50 Left Lewis +0.50 004 +2.50 In-Office Testing: None Relevant [...] made manageable with prism glasses, but felt thesestopped working about 1 year prior. Occluding either eye resolved the diplopia. She tried Fresnelatop specs, but this was more disorienting and she didn't tolerate it. 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 On exam, she had excellent stereoacuity and great alignment in primary gaze. Only in far R gaze andfar downgaze did she have mild RET. Ductions [...] and Adult Strabismus Department of Ophthalmology [facility] P: [phone] * Cordelia Raza - 09/18/2023 2:00 PM EDT REASON FOR VISIT Ayesha Castrejon presents to [...] She's unable to discern whether it's worse orbetter at near of distance. No hx of surgery for correction. Patient states that she did try a fresnel but after her brain surgery the combination of the two was too much to tolerate and she tried it3 different times without success. Patient confirms longstanding [...] scans included Lab work being done in [place] Last edited by Cordelia Raza on 09/18/2023 2:46 PM. Allergies, medications & history reviewed & updated by Cordelia Raza REVIEW OF SYSTEMS Review of Systems HENT: Positive for tinnitus. Eyes: Positive for visual disturbance. Neurological: Negative for syncope and speech difficulty. >10 minutes was spent with patient updating allergies, medications, and medical history. Referring Physician: Patience Osman MD [address] [place] [address] * Shawn Vincent - 09/18/2023 2:00 PM EDT Ayesha Castrejon is a 72 y.o. female [...] in 3 months Strict Return Precautions Reviewed Shawn Bowers, acted as a scribe for Dr. Srini Daley M.D. for this note of 09/18/2023 3:55 PM. I have reviewed edited the exam and documentation by Shawn cai. Please see my full note for final visit documentation. Srini Daley MD Neuro-Ophthalmology and Adult Strabismus Department of Ophthalmology [facility] History of Present illness Narrative* Caryn Swain Jr., DO - 04/02/2023 10:00 AM EST Subjective History of Present Illness Prolia 2 started 2020. Prolia is every April and October. Presence of Pain: complains of pain/discomfort Pain Location: hip, left Select Pain Scale: DVPRS (Defense and Veterans Pain Rating Scale) (Adult- Cognitively Intact) DVPRS: Rest: 4- mild pain DVPRS: Activity: 4- mild pain Select Pain Scale: DVPRS (Defense and Veterans Pain Rating Scale) (Adult- Cognitively Intact) Pain Frequency: constant Pain Quality: aching. [...] is feeling better since she saw a [employer] who started her on Enzymes and low [...] but now patient would like to Follow-up in6 months Encounter Diagnoses Name Primary? 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 Rx given for PT: patient [...] + blood and no RBC/HPF. If continues wouldrec: nephology eval. 23. Neuro F/U per Dr. Cheek 24. Duloxitine stopped due to N/V/flu like illness. 25. dsDNA was elevated at 23 26. Negative SSA., SSB, Chromcatin, Michelle-1, Scleroderma, HANDY MAN, Leal, Centromere, ANCA, HLA-B27, Celiac, CCP, Lyme, [...] F/U with your patient. [facility] in this [facility] History of Present illness Narrative* Caryn Swain Jr., DO - 09/25/2022 12:30 PM EDT History of Present Illness Prolia 2 started 2020. Prolia is every April and October. Presence of Pain: complains of pain/discomfort Select Pain Scale: DVPRS (Defense and Veterans Pain Rating Scale) (Adult- Cognitively Intact) DVPRS: Rest: 4- mild pain Select Pain Scale: DVPRS (Defense and Veterans Pain Rating Scale) (Adult- Cognitively Intact). Totaltime spent in this encounter was 45 minutes. Energy level is ok. Nerve pain is worse. Poor balance is the same. Weakness is nothing different than before. RLS is better with the Mag. Joint pain is yes. A lot of joint pain . Back pain is the worse and she can hardly get out of bed in the AM. Patientis here for 3 week F/U. Patient states [...] 0 on the left side. 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 Assessment and Plan Would [...] and/or ChronicPain Management 13. Rx given for PT: patient [...] 26. Negative SSA., SSB, Chromcatin, Michelle-1, Scleroderma, HANDY MAN, Leal, Centromere, ANCA, HLA-B27, Celiac, CCP, Lyme, [...] patient to your care. documented in this [facility]08-07-2023 Discharge summary Author Heraclio Estrada [facility] September 23, 2022 3:22pm Note Date/Time September 23, 2022 3:2 0pm [facility] Physical Therapy [facility] [facility] [place] [address] / REHABILITATION SERVICES DISCHARGE SUMMARY MR#: [id number] Acct: [id number] Name: AYESHA CASTREJON Rep #: [id number] : 1950 71 From: Cert. PAYTON MyersT, OCS Referring Dr.: Dr. Caryn Swain Jr., MD Status: REG RCR Insurance: MEDICARE PART A B ANTH Discharge Summary D/C summary: It has been my pleasure to treat AYESHA CASTREJON referred by Dr. Caryn Swain Jr., MD, with the diagnosis of CERVICALAGIA,CERVICAL [...] Comments: D/C TO GYM ON OWN AT [facility] d/c sentence: If there are questions or concerns regarding this patient's physical therapy, please feel free to call me at [phone]. Thank you for the referral of thispatient. Sincerely, Heraclio Estrada PT, Cert MDT, OCS Balance/Gait/Functional tests Balance/Special Test Scores Oswestry Low Back Score: 20 <Electronically signed by Lavon Davis PT. NGOZI, OCS> 09/23/22 1522 CC: Dr. Hawk Douglas MD; Dr. Caryn Swain Jr., MD ~ [facility] Signed [facility] Work Phone: 1(163) 189-658506-21-2023 History of Present illness Narrative* Caryn Swain Jr., DO - 08/07/2022 11:45 AM [...] 0 on the left side. 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 Assessment and Plan Would [...] F/U per Dr. Cheek documented in this encounterSouth[facility] [facility] [facility] History of Present illness Narrative* Robyn Horvath MD - 12/13/2021 9:01 AM EDT FOLLOW UP VISIT - ENDOSCOPY NAME: Ayesha Segovia Pike [facility] NO.: [id number] DATE OF SERVICE: 12/13/2021 : 1950 REFERRING [...] retrieved. Clips (MR conditional) were placed. 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 - The examination was otherwise normal on [...] needed. Robyn Horvath MD [facility] Nurse Note* Jane Suresh RN - 12/04/2021 [...] or nausea. Resting comfortably. [facility] History and physical note * Robyn Horvath [...] RELIEF) 50 mcg/actuation nasal spray Use 1 [place] in each nostril as needed. VITAMIN E [...] entered by the nurse and reviewed by mt Nursing Notes: Mary Sousa LPN 09/19/2021 9:10 [...] were not included. HISTORY AND PHYSICAL Ayesha Luca Lucía 1950 REFERRING PHYSICIAN: MD Nilesh CHIEF [...] RELIEF) 50 mcg/actuation nasal spray Use 1 [place] in each nostril as needed. VITAMIN E [...] completed. Robyn Horvath MD [facility] noteNo assessment information availableWKettering Health Preble Work Phone: Evaluation note* Diagnosis Onset Date Resolution Status Intermittent palpitations ac [place] Premature atrial contractions acute Premature ventricular contraction acute [facility] Work Phone: Evaluation note* Diagnosis Family history of malignant neoplasm of gastrointestinal tract- Primary [facility]* Diagnosis Adenomatous polyp of colon, unspecified part of colon- Primary [facility]* Diagnosis Onset Date Resolution Status Muscle cramps acute Polyneuropathy chronic RLS (restless legs syndrome) [facility] Work Phone: Evaluation note* Diagnosis Cervicalgia- Primary [...] site of spine [facility] Diagnosis Onset Date Resolution Status Muscle cramps chronic Polyneuropathy chronic RLS (restless legs syndrome) [facility] Work Phone: Evaluation note* Diagnosis Hypocalcemia- Primary [...] findings Other proteinuria [facility] Diagnosis Hypothyroidism, unspecified type- Primary Keratoconjunctivitis [...] intervertebral disc Long-term use of high-risk medication 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 Encounter for [...] serum enzyme levels [facility] Diagnosis Onset Date Resolution Status Influenza due to influenza virus, type A, human acute Muscle cramps chronic Polyneuropathy chronic RLS (restless legs syndrome) [facility] Work Phone: Evaluation note* Diagnosis Onset Date Resolution Status Influenza due to influenza virus, type A, human acute Muscle cramps chronic Polyneuropathy chronic RLS (restless legs syndrome) chronic Intermittent palpitations ac [place] [facility] Work Phone: Evaluation note* Diagnosis Diplopia- Primary Esotropia, right eye Esotropia, unspecified [facility] Diagnosis Dry mouth- Primary Disturbance [...] osteoporosis Personal history of other musculoskeletal disorders termination 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 of non-steroidal anti-inflammatories (NSAID) Encounter for long-term (current) use of non-steroidal anti-inflammatories Long-term use of high-risk medication Neutropenia, unspecified type Positive double stranded DNA antibody test Other and unspecified nonspecific immunological findings [facility] Diagnosis Screen for colon cancer- Primary Special screening for malignant neoplasms, colon Adenomatous polyp of colon, unspecified part of colon Family history of colon cancer in father [facility]* Diagnosis Family history of malignant neoplasm of gastrointestinal tract- Primary Screen for colon cancer Special screening for malignant neoplasms, colon Adenomatous polyp of colon, unspecified part of colon documented [facility] this [facility]* Diagnosis Encounter for gynecological examination (general) (routine) without abnormal findings- Primary Encounter for screening mammogram for malignant neoplasm of breast Other screening mammogram [facility] this [facility]* Diagnosis Overactive bladder- Primary Hypertonicity of bladder documented [facility] this [facility]* Diagnosis Cystocele, midline- Primary Urinary frequency documented in this encounter [facility] for referral (narrative)* Outpatient Procedure (Routine) - Closed Specialty Diagnoses / Procedures Referred By Juan recio Referred To Contact [facility] Diagnoses Family history of malignant neoplasm of gastrointestinal tract Procedures COLONOSCOPY SCREENING COLONOSCOPY FLX DX W/COLLJ SPEC WHEN PFRMD Robyn Horvath MD [address] [place] [address] [facility] [address] [place] [address] Referral ID Status Reason Start Date Expiration Date V isits Requested Visits Authorized [id number] Closed Auto-Generate d Referral 09/19/2021 09/19/2022 1 1 [facility] for referral (narrative)* Outpatient Procedure (Routine) - Authorized Specialty Diagnoses / Procedures Referred By Contac t Referred To Contact [facility] Diagnoses Screen for colon cancer Adenomatous polyp of colon, unspecified part of colon Procedures COLONOSCOPY SCREENING COLONOSCOPY FLX DX W/COLLJ SPEC WHEN Maren Bardales APRN.REAL ESTATE ACCOUNTANT [address] [place] [address] [address] Referral ID Status Reason Start Date Expiration Date Visits Requested Visits Authorized [id number] Authorized Auto-Generat ed Referral 11/13/2023 11/12/2024 1 1 [facility] for referral (narrative)* Outpatient Procedure (Routine) - Closed Specialty Diagnoses / Procedures Referred By Contberna t Referred To Contact [facility] Diagnoses Screen for colon cancer Adenomatous polyp of colon, unspecified part of colon Procedures COLONOSCOPY SCREENING COLONOSCOPY FLX DX W/COLLJ SPEC WHEN Maren Bardales APRN.REAL ESTATE ACCOUNTANT [address] [place] [address] [facility] [address] [place] [address] Referral ID Status Reason Start Date Expiration Date V isits Requested Visits Authorized [id number] Closed Auto-Generate d Referral 11/13/2023 11/12/2024 1 1 [facility] for referral (narrative)* Diagnostic Procedure Only (Routine) - New Request Specialty Diagnoses / Procedures Referred By Contberna t Referred To Contact [facility] Diagnoses Encounter for screening mammogram for malignant neoplasm of breast Procedures PRATIBHA SCREENING W VANDANA SCREENING DIGITAL BREAST TOMOSYNTHESIS BI SCREENING MAMMOGRAPHY BI 2-VIEW BREAST INC CAD Demarco Vogel MD [address] [place] [address] [facility] [address] [place] [address] Referral ID Status Reason Start Date Expiration Date Visits Requested Visits Authorized [id number] New Request Auto-Generat ed Referral 02/26/2024 03/27/2025 1 1 [facility] for referral (narrative)No reason for referral information availableAlsip [employer] Work Phone: Reason for visit Narrative* Outpatient Procedure (Routine) - Closed Specialty Diagnoses / Procedures Referred By Juan recio Referred To Contact [facility] Diagnoses Family history of malignant neoplasm of gastrointestinal tract Procedures COLONOSCOPY SCREENING COLONOSCOPY FLX DX W/COLLJ SPEC WHEN Robyn Hartman MD [address] [place] [address] [facility] [address] [place] [id number] Referral ID Status Reason Start Date Expiration Date V isits Requested Visits Authorized [id number] Closed Auto-Generate d Referral 09/19/2021 09/19/2022 1 1 [facility] for visit Narrative* Outpatient Procedure (Routine) - Closed Specialty Diagnoses / Procedures Referred By Juan recio Referred To [facility] Diagnoses Screen for colon cancer Adenomatous polyp of colon, unspecified part of colon Procedures COLONOSCOPY SCREENING COLONOSCOPY FLX DX W/COLLJ SPEC WHEN Maren Bardales APRN.REAL ESTATE ACCOUNTANT [address] [place] [address] [facility] [address] [place] [address] Referral ID Status Reason Start Date Expiration Date V isits Requested Visits Authorized [id number] Closed Auto-Generate d Referral 11/13/2023 11/12/2024 1 1 [facility] Summary Purpose Family History No Family History [...] No October 03 4 10:26am Power of Seafood Service Team Member No October 03 014 10:26am Advance Directive Response Recorded Date/ Time Advance Directives No October 03, 2013 9:26am Living Will No October 03 4 9:26am Power of Seafood Service Team Member No October 03 014 9:26am Advance Directive Response Recorded Date/ Time Advance Directives No January 7:42am Living Will No February 14 023 7:42am Power of Seafood Service Team Member No February 14, 2023 7:42am Advance Directive Response Recorded Date/ Time Advance Directives No January 8:42am Living Will No February 14 023 8:42am Power of Seafood Service Team Member No February 14, 2023 8:42am Advance Directive Response Recorded Date/ Time Advance Directives No December 12, 2023 11:28am Chief Complaint and Reason for Visit Chief [...] Polyneuropathy RLS (restless legs syndrome) Intermittent palpitations Chief Complaint Admit Date right shoulder April 13, 2024 12:54pm RIGHT SHOULDER May 10, 2024 12: 46pm RIGHT SHOULDER June 07, 2024 1:4 2pm RIGHT SHOULDER. RX HERE June 11, 2024 2:00pm LEFT SHOULDER June 24, 2024 12:46p m Room 2 June 24, 2024 1:09pm pain, cuff tear? August 05, 2024 7:45 am RIGHT HIP August 06, 2024 11:0 7am RM 2 August 06, 2024 11:2 9am Reason for Visit Admit Date Right rotator cuff tear April 13, 025 12:54pm Adhesive capsulitis of right shoulder [facility] 2024 12:46pm Impingement of right shoulder April 12:46pm Right rotator cuff tear May 10, 2024 12:46pm Right shoulder pain May 10, 2024 12: 46pm Adhesive capsulitis of right shoulder Ap [facility] 2024 1:42pm Left shoulder pain June 24, 2024 12:46p m Chief Complaint Admit Date right shoulder April 13, 2024 12:54pm RIGHT SHOULDER May 10, 2024 12: 46pm RIGHT SHOULDER June 07, 2024 1:4 2pm RIGHT SHOULDER. RX HERE June 11, 2024 2:00pm LEFT SHOULDER June 24, 2024 12:46p m Room 2 June 24, 2024 1:09pm pain, cuff tear? August 05, 2024 7:45 am RIGHT HIP August 06, 2024 11:0 7am RM August 06, 2024 11:2 9am LEFT SHOULDER August 10, 2024 12:4 6pm Reason for Visit Admit Date Right rotator cuff tear April 13 025 12:54pm Adhesive capsulitis of right shoulder [facility] 2024 12:46pm Impingement of right shoulder April 12:46pm Right rotator cuff tear May 10, 2024 12:46pm Right shoulder pain May 10, 2024 12: 46pm Adhesive capsulitis of right shoulder Ap [facility] 2024 1:42pm Left shoulder pain June 24, 2024 12:46p m Degenerative scoliosis August 06, 2024 1 1:07am Lumbar radiculitis August 06, 2024 11:0 7am Left rotator cuff tear August 10, 2024 1 2:46pm Left shoulder pain August 10, 2024 12:4 6pm Primary osteoarthritis, left shoulder Ju sd 2024 12:46pm Chief Complaint Admit Date RIGHT SHOULDER May 10, 2024 12: 46pm RIGHT SHOULDER June 07, 2024 1:4 2pm RIGHT SHOULDER. RX HERE June 11, 2024 2:00pm LEFT SHOULDER June 24, 2024 12:46p m Room 2 June 24, 2024 1:09pm pain, cuff tear? August 05, 2024 7:45 am RIGHT HIP August 06, 2024 11:0 7am RM 2 August 06, 2024 11:2 9am LEFT SHOULDER August 10, 2024 12:4 6pm EORDERS September 01, 2024 8:14 am Reason for Visit Admit Date Adhesive capsulitis of right shoulder [facility] 2024 12:46pm Impingement of right shoulder April 12:46pm Right rotator cuff tear May 10, 2024 12:46pm Right shoulder pain May 10, 2024 12: 46pm Adhesive capsulitis of right shoulder Ap 2024 1:42pm Left shoulder pain June 24, 2024 12:46p m Degenerative scoliosis August 06, 2024 1 1:07am Lumbar radiculitis August 06, 2024 11:0 7am Left rotator cuff tear August 10, 2024 1 2:46pm Left shoulder pain August 10, 2024 12:4 6pm Primary osteoarthritis, left shoulder Ju sd 2024 12:46pm Chief Complaint Admit Date RIGHT SHOULDER May 10, 2024 12: 46pm RIGHT SHOULDER June 07, 2024 1:4 2pm RIGHT SHOULDER. RX HERE June 11, 2024 2:00pm LEFT SHOULDER June 24, 2024 12:46p m Room 2 June 24, 2024 1:09pm pain, cuff tear? August 05, 2024 7:45 am RIGHT HIP August 06, 2024 11:0 7am RM 2 August 06, 2024 11:2 9am LEFT SHOULDER August 10, 2024 12:4 6pm EORDERS September 01, 2024 8:14 am LUMBAR SPINE September 07, 2024 9:11 am Room 3 September 07, 2024 9:38 am Reason for Visit Admit Date Adhesive capsulitis of right shoulder [facility] 2024 12:46pm Impingement of right shoulder April 12:46pm Right rotator cuff tear May 10, 2024 12:46pm Right shoulder pain May 10, 2024 12: 46pm Adhesive capsulitis of right shoulder Ap ril 2024 1:42pm Left shoulder pain June 24, 2024 12:46p m Degenerative scoliosis August 06, 2024 1 1:07am Lumbar radiculitis August 06, 2024 11:0 7am Left rotator cuff tear August 10, 2024 1 2:46pm Left shoulder pain August 10, 2024 12:4 6pm Primary osteoarthritis, left shoulder Ju ne 2024 12:46pm Foraminal stenosis of lumbar region September 07, 2024 9:11am Leg length discrepancy September 07, 2024 9 :11am Lumbar radiculopathy September 07, 2024 9:1 1am Neurogenic claudication September 07, 2024 9:11am Scoliosis of lumbar region d ue to degenerative disease of spine in adult September 07, 2024 9:11am Spondylolisthesis September 07, 2024 9:11 am Chief Complaint Admit Date RIGHT SHOULDER June 07, 2024 1:4 2pm RIGHT SHOULDER. RX HERE June 11, 2024 2:00pm LEFT SHOULDER June 24, 2024 12:46p m Room 2 June 24, 2024 1:09pm pain, cuff tear? August 05, 2024 7:45 am RIGHT HIP August 06, 2024 11:0 7am RM 2 August 06, 2024 11:2 9am LEFT SHOULDER August 10, 2024 12:4 6pm EORDERS September 01, 2024 8:14 am LUMBAR SPINE September 07, 2024 9:11 am Room 3 September 07, 2024 9:38 am 1 Y FU September 20, 2024 1:1 9pm Reason for Visit Admit Date Adhesive capsulitis of right shoulder Ap ril 2024 1:42pm Left shoulder pain June 24, 2024 12:46p m Degenerative scoliosis August 06, 2024 1 1:07am Lumbar radiculitis August 06, 2024 11:0 7am Left rotator cuff tear August 10, 2024 1 2:46pm Left shoulder pain August 10, 2024 12:4 6pm Primary osteoarthritis, left shoulder Ju ne 2024 12:46pm Foraminal stenosis of lumbar region September 07, 2024 9:11am Leg length discrepancy September 07, 2024 9 :11am Lumbar radiculopathy September 07, 2024 9:1 1am Neurogenic claudication September 07, 2024 9:11am Other cervical disc degenera tion, mid-cervical region, unspecified level September 07, 2024 9:11am Scoliosis of lumbar region d ue to degenerative disease of spine in adult September 07, 2024 9:11am Spondylolisthesis September 07, 2024 9:11 am Dyspnea on exertion September 20, 2024 1:1 9pm Intermittent palpitations September 20 1:19pm Premature ventricular contraction September 20, 2024 1:19pm Medications Administered Section Inactive Administered Medications - up to 3 most recent administrations Medication Order MAR Action Action Date Dose Rate Site fentaNYL 50 mcg/mL 25-100 mcg injection (SUBLIMAZE) 25-100 mcg, INTRAVENOUS, DIRECTED, Starting on Fri12/04/21 at 1030, Until Fri12/04/21 at 1429, DOSING DIRECTED BY PHYSICIAN FOR PROCEDURAL SEDATION ONLY, Intraprocedure Given 12/04/2021 10:09 AM EDT [address] [facility] 12/04/2021 10:03 AM EDT [address] [facility] 12/04/2021 10:01 AM EDT 50 mcg midazolam (PF) 1-5 mg injection (VERSED) 1-5 mg, INTRAVENOUS, DIRECTED, Starting on Fri12/04/21 at 1030, Until Fri12/04/21 at 1429, DOSING DIRECTED BY PHYSICIAN FOR PROCEDURAL SEDATION ONLY, Intraprocedure Given by [facility] 12/04/2021 10:04 AM EDT [address] [facility] 12/04/2021 10:03 AM EDT [address] [facility] 12/04/2021 10:01 AM EDT 3 mg Reason for Referral Specialty Diagnoses / Procedures Referred By Contac t Referred To Contact Physical Therapy Diagnoses Cervicalgia Dorsalgia History of neuropathy DDD (degenerative disc disease), cervical Disorder of bone and cartilage Lumbar degenerative disc disease Leukopenia, unspecified type SCOTT positive Family history of rheumatoid arthritis Fatigue, unspecified type Fibromyalgia History of fibromyalgia History of osteoporosis Long-term use of high-risk medication Hypothyroidism, unspecified type Abnormal reflexes of lower extremity Wiliam Duong, Caryn Monsivais, [address] [place] [address] Referral ID Status Reason Start Date Expiration Date V isits Requested Visits Authorized [id number] New Request 08/07/2022 09/01/2023 1 1 Scheduling Instructions . Additional Source Comments INFORMATION SOURCE (unrecogn ized section and content) DATE CREATED AUTHOR 08/07/2017 [facility] DATE CREATED AUTHOR AUTHOR'S ORGANIZ ATION 08/18/2022 [facility] DATE CREATED AUTHOR AUTHOR'S ORGANIZ ATION 10/04/2023 [facility] DATE CREATED AUTHOR AUTHOR'S ORGANIZ ATION 10/14/2023 [facility] DATE CREATED AUTHOR AUTHOR'S ORGANIZ ATION 03/06/[address] [facility] DATE CREATED AUTHOR AUTHOR'S ORGANIZ ATION 10/05/2024 [facility] Goals (unrecognized section and content) Goals may [...] or prosecute any alcohol or drug abuse patient.[facility] Hospital[facility] the event this information is protected by the Federal Confidentiality of Alcohol and Drug Abuse Patient Records regulations: The Federal rules restrict any use of the information to criminally investigate or prosecute any alcohol or drug abuse patient.[facility] Hospital[facility] the event this information is protected by the Federal Confidentiality of Alcohol and Drug Abuse Patient Records regulations: The Federal rules restrict any use of the information to criminally investigate or prosecute any alcohol or drug abuse patient.[facility] Hospital[facility] the event this information is protected by the Federal Confidentiality of Alcohol and Drug Abuse Patient Records regulations: The Federal rules restrict any use of the information to criminally investigate or prosecute any alcohol or drug abuse patient.[facility] Hospital[facility] the event this information is protected by the Federal Confidentiality of Alcohol and Drug Abuse Patient Records regulations: The Federal rules restrict any use of the information to criminally investigate or prosecute any alcohol or drug abuse patient.[facility] Hospital[facility] the event this information is protected by the Federal Confidentiality of Alcohol and Drug Abuse Patient Records regulations: The Federal rules restrict any use of the information to criminally investigate or prosecute any alcohol or drug abuse patient.[facility] HospitalIn the event this information is protected by the Federal Confidentiality of Alcohol and Drug Abuse Patient Records regulations: The Federal rules restrict any use of the information to criminally investigate or prosecute any alcohol or drug abuse patient.[facility] Care Teams (unrecognized sec tion and content) Retail Marketing Coordinator Relationship Specialty Start Date End Date Malvin Douglas MD [address] [place], [place] [id number] PCP - General Family Medicine 12/16/12 Retail Marketing Coordinator Relationship Specialty Start Date End Date Malvin Douglas MD [address] [place], [place] [id number] PCP - General Family Medicine 12/16/12 Team [...] MD Attending Provider, Referring Pr ovider Active Retail Marketing Coordinator Relationship Specialty Start Date End Date Malvin Douglas MD [address] [place] [address] PCP - General Family Medicine 08/07/22 Team Status: Inactive Member Role Status Dates Dr. Hawk Douglas MD Primary Care Provider Activ e Dr. Caryn Swain Jr., MD Attending Provider, Ref erring Provider Active Team Status: Active Member Role Status Dates Dr. Hawk Douglas MD Primary Care Provider Activ e Dr. Caryn Swain Jr., MD Attending Provider, Ref erring Provider Active Team Status: Inactive Member Role Status Dates Dr. Hawk Douglas MD Primary Care Provider Activ e Dr. Yashira Mike DO Attending Provider Active Retail Marketing Coordinator Relationship Specialty Start Date End Date Malvin Douglas MD [address] [facility], [place] [id number] PCP - General Family Medicine 08/07/22 Team Status: Inactive Member Role Status Dates Dr. Hawk Douglas MD Primary Care Provider Activ e Dr. Adam Cruz MD Attending Provider, Referring Provider Active Retail Marketing Coordinator Relationship Specialty Start Date End Date Malvin Douglas MD [address] [place] [address] PCP - General Family Medicine 08/07/22 Team Status: Inactive Member Role Status Dates Dr. Hawk Douglas MD Primary Care Provider, Refe rring Provider Active [place], [place] Attending Provider Active Team Status: Inactive Member Role Status Dates Dr. Hawk Douglas MD Primary Care Provider Activ e ALIZA. Salome Rivas Attending Provider, Referring Provid er [...] Primary Care Provider, Ref erring Provider Active MIKAELA Massey Attending Provider Active Team Status: Inactive Member Role Status Dates Dr. Malvin Douglas MD Primary Care Provider Acti ve Dr. Panfilo Lyon MD Attending Provider Active Team Status: Inactive Member Role Status Dates Dr. Malvin Douglas MD Primary Care Provider, Ref erring Provider Active Tamica Hall NP, 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 Attending Provider Active Team Status: Inactive Member Role Status Dates Dr. Malvin Douglas MD Primary Care Provider Acti ve 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. Salome Rivas Attending Provider, Referring Provid er Active Retail Marketing Coordinator Relationship Specialty Start Date End Date Malvin Douglas MD [address] [place] [address] PCP - General Family Medicine 08/07/22 Retail Marketing Coordinator Relationship Specialty Start Date End Date Malvin Douglas MD [address] [place] [address] PCP - General Family Medicine 08/07/22 Retail Marketing Coordinator Relationship Specialty Start Date End Date Malvin Douglas MD [address] [place] [address] PCP - General Family Medicine 12/16/12 Retail Marketing Coordinator Relationship Specialty Start Date End Date Malvin Douglas MD [address] [place] [address] PCP - General Family Medicine 12/16/12 Retail Marketing Coordinator Relationship Specialty Start Date End Date Malvin Douglas MD [address] [place] [address] PCP - General Family Medicine 12/16/12 Retail Marketing Coordinator Relationship Specialty Start Date End Date Malvin Douglas MD [address] [place] [address] PCP - General Family Medicine 12/16/12 Retail Marketing Coordinator Relationship Specialty Start Date End Date Malvin Douglas MD [address] [place] [address] PCP - General Family Medicine 12/16/12 Team Status: Active Member Role Status Dates Dr. Malvin Douglas MD Primary Care Provider Acti ve Team Status: Inactive Member Role Status Dates Dr. Malvin Douglas MD Primary Care Provider Acti ve Start: April 13, 2024 End: April 13, 2024 Dr. Malvin Douglas MD Referring Provider Active Start: April 13, 2024 End: April 13, 2024 Nirmal Head MD Attending Provider Active St art: April 13, 2024 End: April 13, 2024 Team Status: Inactive Member Role Status Dates Dr. Malvin Douglas MD Primary Care Provider Acti ve Start: May 10, 2024 End: May 10, 2024 Dr. Malvin Douglas MD Referring Provider Active Start: May 10, 2024 End: May 10, 2024 Nirmal Head MD Attending Provider Active St art: May 10, 2024 End: May 10, 2024 Team Status: Inactive Member Role Status Dates Dr. Malvin Douglas MD Primary Care Provider Acti ve Start: June 07, 2024 End: June 07, 2024 Dr. Malvin Douglas MD Referring Provider Active Start: June 07, 2024 End: June 07, 2024 Nirmal Head MD Attending Provider Active St art: June 07, 2024 End: June 07, 2024 Team Status: Active Member Role Status Dates Dr. Malvin Douglas MD Primary Care Provider Acti ve Start: June 11, 2024 Nirmal Head MD Attending Provider Active St art: June 11, 2024 Nirmal Head MD Referring Provider Active St art: June 11, 2024 Team Status: Inactive Member Role Status Dates Dr. Malvin Douglas MD Primary Care Provider Acti ve Start: June 24, 2024 End: June 24, 2024 Dr. Malvin Douglas MD Referring Provider Active Start: June 24, 2024 End: June 24, 2024 Nirmal Head MD Attending Provider Active St art: June 24, 2024 End: June 24, 2024 Team Status: Inactive Member Role Status Dates Dr. Malvin Douglas MD Primary Care Provider Acti ve Start: June 24, 2024 End: June 24, 2024 Dr. Panfilo Lyon MD Attending Provider Active S tart: June 24, 2024 End: June 24, 2024 Team Status: Active Member Role Status Dates Dr. Malvin Douglas MD Primary Care Provider Acti ve Start: August 05, 2024 Nirmal Head MD Attending Provider Active St art: August 05, 2024 Nirmal Head MD Referring Provider Active St art: August 05, 2024 Team Status: Active Member Role Status Dates Dr. Malvin Douglas MD Primary Care Provider Acti ve Start: August 06, 2024 Dr. Malvin Douglas MD Referring Provider Active Start: August 06, 2024 Dr. Aramis Rivera DO Attending Provider Active Start: August 06, 2024 Team Status: Inactive Member Role Status Dates Dr. Malvin Douglas MD Primary Care Provider Acti ve Start: August 06, 2024 End: August 06, 2024 Dr. Panfilo Lyon MD Attending Provider Active S tart: August 06, 2024 End: August 06, 2024 Team Status: Inactive Member Role Status Dates Dr. Malvin Douglas MD Primary Care Provider Acti ve Start: August 06, 2024 End: August 06, 2024 Dr. Malvin Douglas MD Referring Provider Active Start: August 06, 2024 End: August 06, 2024 Dr. Aramis Rivera DO Attending Provider Active Start: August 06, 2024 End: August 06, 2024 Team Status: Inactive Member Role Status Dates Dr. Malvin Douglas MD Primary Care Provider Acti ve Start: August 10, 2024 End: August 10, 2024 Dr. Malvin Douglas MD Referring Provider Active Start: August 10, 2024 End: August 10, 2024 Nirmal Head MD Attending Provider Active St art: August 10, 2024 End: August 10, 2024 Team Status: Inactive Member Role Status Dates Dr. Malvin Douglas MD Primary Care Provider Acti ve Start: August 05, 2024 End: August 05, 2024 Nirmal Head MD Attending Provider Active St art: August 05, 2024 End: August 05, 2024 Nirmal Head MD Referring Provider Active St art: August 05, 2024 End: August 05, 2024 Team Status: Active Member Role/Relationship Status Dates Dr. Malvin Douglas MD Primary Care Provider Acti ve Team Status: Inactive Member Role/Relationship Status Dates Dr. Malvin Douglas MD Primary Care Provider Acti ve Start: May 10, 2024 End: May 10, 2024 Dr. Malvin Douglas MD Referring Provider Active Start: May 10, 2024 End: May 10, 2024 Nirmal Head MD Attending Provider Active St art: May 10, 2024 End: May 10, 2024 Team Status: Inactive Member Role/Relationship Status Dates Dr. Malvin Douglas MD Primary Care Provider Acti ve Start: June 07, 2024 End: June 07, 2024 Dr. Malvin Douglas MD Referring Provider Active Start: June 07, 2024 End: June 07, 2024 Nirmal Head MD Attending Provider Active St art: June 07, 2024 End: June 07, 2024 Team Status: Active Member Role/Relationship Status Dates Dr. Malvin Douglas MD Primary Care Provider Acti ve Start: June 11, 2024 Nirmal Head MD Attending Provider Active St art: June 11, 2024 Nirmal Head MD Referring Provider Active St art: June 11, 2024 Team Status: Inactive Member Role/Relationship Status Dates Dr. Malvin Douglas MD Primary Care Provider Acti ve Start: June 24, 2024 End: June 24, 2024 Dr. Malvin Douglas MD Referring Provider Active Start: June 24, 2024 End: June 24, 2024 Nirmal Head MD Attending Provider Active St art: June 24, 2024 End: June 24, 2024 Team Status: Inactive Member Role/Relationship Status Dates Dr. Malvin Douglas MD Primary Care Provider Acti ve Start: June 24, 2024 End: June 24, 2024 Dr. Panfilo Lyon MD Attending Provider Active S tart: June 24, 2024 End: June 24, 2024 Team Status: Inactive Member Role/Relationship Status Dates Dr. Malvin Douglas MD Primary Care Provider Acti ve Start: August 05, 2024 End: August 05, 2024 Nirmal Head MD Attending Provider Active St art: August 05, 2024 End: August 05, 2024 Nirmal Head MD Referring Provider Active St art: August 05, 2024 End: August 05, 2024 Team Status: Inactive Member Role/Relationship Status Dates Dr. Malvin Douglas MD Primary Care Provider Acti ve Start: August 06, 2024 End: August 06, 2024 Dr. Malvin Douglas MD Referring Provider Active Start: August 06, 2024 End: August 06, 2024 Dr. Aramis Rivera DO Attending Provider Active Start: August 06, 2024 End: August 06, 2024 Team Status: Inactive Member Role/Relationship Status Dates Dr. Malvin Douglas MD Primary Care Provider Acti ve Start: August 06, 2024 End: August 06, 2024 Dr. Panfilo Lyon MD Attending Provider Active S tart: August 06, 2024 End: August 06, 2024 Team Status: Inactive Member Role/Relationship Status Dates Dr. Malvin Douglas MD Primary Care Provider Acti ve Start: August 10, 2024 End: August 10, 2024 Dr. Malvin Douglas MD Referring Provider Active Start: August 10, 2024 End: August 10, 2024 Nirmal Head MD Attending Provider Active St art: August 10, 2024 End: August 10, 2024 Team Status: Inactive Member Role/Relationship Status Dates Dr. Malvin Douglas MD Primary Care Provider Acti ve Start: September 01, 2024 End: September 01, 2024 Dr. Malvin Douglas MD Attending Provider Active Start: September 01, 2024 End: September 01, 2024 Dr. Malvin Douglas MD Referring Provider Active Start: September 01, 2024 End: September 01, 2024 Team Status: Active Member Role/Relationship Status Dates Dr. Malvin Douglas MD Primary Care Provider Acti ve Start: September 07, 2024 Dr. Malvin Douglas MD Referring Provider Active Start: September 07, 2024 Dr. Mookie Damon MD Attending Provider Active Start: September 07, 2024 Team Status: Inactive Member Role/Relationship Status Dates Dr. Malvin Douglas MD Primary Care Provider Acti ve Start: September 07, 2024 End: September 07, 2024 Dr. Panfilo Lyon MD Attending Provider Active S tart: September 07, 2024 End: September 07, 2024 Team Status: Inactive Member Role/Relationship Status Dates Dr. Malvin Douglas MD Primary Care Provider Acti ve Start: September 07, 2024 End: September 07, 2024 Dr. Malvin Douglas MD Referring Provider Active Start: September 07, 2024 End: September 07, 2024 Dr. Mookie Damon MD Attending Provider Active Start: September 07, 2024 End: September 07, 2024 Team Status: Inactive Member Role/Relationship Status Dates Dr. Malvin Douglas MD Primary Care Provider Acti ve Start: June 07, 2024 End: June 07, 2024 Dr. Malvin Douglas MD Referring Provider Active Start: June 07, 2024 End: June 07, 2024 Nirmal Head MD Attending Provider Active St art: June 07, 2024 End: June 07, 2024 Team Status: Active Member Role/Relationship Status Dates Dr. Malvin Douglas MD Primary Care Provider Acti ve Start: June 11, 2024 Nirmal Head MD Attending Provider Active St art: June 11, 2024 Nirmal Head MD Referring Provider Active St art: June 11, 2024 Team Status: Inactive Member Role/Relationship Status Dates Dr. Malvin Douglas MD Primary Care Provider Acti ve Start: June 24, 2024 End: June 24, 2024 Dr. Malvin Douglas MD Referring Provider Active Start: June 24, 2024 End: June 24, 2024 Nirmal Head MD Attending Provider Active St art: June 24, 2024 End: June 24, 2024 Team Status: Inactive Member Role/Relationship Status Dates Dr. Malvin Douglas MD Primary Care Provider Acti ve Start: June 24, 2024 End: June 24, 2024 Dr. Panfilo Lyon MD Attending Provider Active S tart: June 24, 2024 End: June 24, 2024 Team Status: Inactive Member Role/Relationship Status Dates Dr. Malvin Douglas MD Primary Care Provider Acti ve Start: August 05, 2024 End: August 05, 2024 Nirmal Head MD Attending Provider Active St art: August 05, 2024 End: August 05, 2024 Nirmal Head MD Referring Provider Active St art: August 05, 2024 End: August 05, 2024 Team Status: Inactive Member Role/Relationship Status Dates Dr. Malvin Douglas MD Primary Care Provider Acti ve Start: August 06, 2024 End: August 06, 2024 Dr. Malvin Douglas MD Referring Provider Active Start: August 06, 2024 End: August 06, 2024 Dr. Aramis Rivera DO Attending Provider Active Start: August 06, 2024 End: August 06, 2024 Team Status: Inactive Member Role/Relationship Status Dates Dr. Malvin Douglas MD Primary Care Provider Acti ve Start: August 06, 2024 End: August 06, 2024 Dr. Panfilo Lyon MD Attending Provider Active S tart: August 06, 2024 End: August 06, 2024 Team Status: Inactive Member Role/Relationship Status Dates Dr. Malvin Douglas MD Primary Care Provider Acti ve Start: August 10, 2024 End: August 10, 2024 Dr. Malvin Douglas MD Referring Provider Active Start: August 10, 2024 End: August 10, 2024 Nirmal Head MD Attending Provider Active St art: August 10, 2024 End: August 10, 2024 Team Status: Inactive Member Role/Relationship Status Dates Dr. Malvin Douglas MD Primary Care Provider Acti ve Start: September 01, 2024 End: September 01, 2024 Dr. Malvin Douglas MD Attending Provider Active Start: September 01, 2024 End: September 01, 2024 Dr. Malvin Douglas MD Referring Provider Active Start: September 01, 2024 End: September 01, 2024 Team Status: Inactive Member Role/Relationship Status Dates Dr. Malvin Douglas MD Primary Care Provider Acti ve Start: September 07, 2024 End: September 07, 2024 Dr. Malvin Douglas MD Referring Provider Active Start: September 07, 2024 End: September 07, 2024 Dr. Mookie Damon MD Attending Provider Active Start: September 07, 2024 End: September 07, 2024 Team Status: Inactive Member Role/Relationship Status Dates Dr. Malvin Douglas MD Primary Care Provider Acti ve Start: September 07, 2024 End: September 07, 2024 Dr. Panfilo Lyon MD Attending Provider Active S tart: September 07, 2024 End: September 07, 2024 Team Status: Inactive Member Role/Relationship Status Dates Dr. Malvin Douglas MD Primary Care Provider Acti ve Start: September 20, 2024 End: September 20, 2024 Dr. Malvin Douglas MD Referring Provider Active Start: September 20, 2024 End: September 20, 2024 Joseph Hayes 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, 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 Attending Provider Active S tart: September 20, 2024 End: September 20, 2024 Reason for Visit (unrecogniz ed section and [...] worse. Reason Comments Follow-up Patient is here tock ro for a follow up, PRN at last appointment 09/19/2022. Patient states she is feeling better since she saw a [employer] who started her on Enzymes and low carb diet to control her IBS. Reason Comments Double Vision Specialty Diagnoses / Procedures Referred By Juan recio Referred To Contact Ophthalmology Diagnoses Diplopia Patience Osman MD [address] [facility] [address] [place] [address] Srini Daley MD [address] [facility] [address] [place] [address] Referral ID Status Reason Start Date Expiration Date V isits Requested Visits Authorized [id number] Pending Review 07/09/2023 08/02/2024 1 1 Reason Comments Follow-up Patient is here tock jayjay for her 6 Month Follow-up. Patient states [...] BE BASED ON THE PRIMARY CLINICAL RECORDS. [facility]. provides no warranty or guarantee of the accuracy or completeness of information in this document.
== END | disposition home or self-care (01) ==
LOC: CVS 06:34
PROVIDERS: PCP Family Medicine; Referring Provider Nurse Practitioner Family; Visit Provider Nurse Practitioner Family
DX: I49.3 Ventricular premature depolarization (principal); R06.09 Other forms of dyspnea; R00.2 Palpitations
CPT/HCPCS: 93225; 93226; 93306

== ENCOUNTER → 2024-10-14 | Outpatient (CLI) | payer MEDICARE, BC, SELFPAY ==
--- NOTE | 2024-10-14 10:09 | MRI_ITS ---
PROCEDURE: SPINE LUMBAR (ROUTINE) 10/14/2024 REASON FOR EXAM: LUMBAR RADICULOPATHY TECHNIQUE: Procedure Code: MRISPL Modality: MR Procedure: SPINE LUMBAR (ROUTINE) COMPARISON: 05/23/2023 FINDINGS: Grade 1 subluxation again seen of L4 upon L5. No compression fracture. No compression of the conus. The abdominal aorta exhibits normal caliber. No retroperitoneal masses identified. T12-L1 is unremarkable. L1-L2 demonstrates facet arthrosis. At L2-3 concentric annular bulging and facet arthrosis are present with a mild degree of canal narrowing and inferior foraminal narrowing on the left. Both findings present previously At L3-4 facet and ligamentous hypertrophy results overall in mild canal narrowing, stable. At L4-5 facet arthrosis allows for grade 1 subluxation with ligamentous hypertrophy resulting in [id number] canal narrowing, stable. At this level there is severe right L4 foraminal stenosis with right L4 impingement. At L5-S1 no central or foraminal stenosis MRI/Spine Lumbar (Routine) IMPRESSION: 1. Similar findings of the prior study including right L4 foraminal nerve root compression. 2. Similar degenerative changes at L2-3 and L3-4 Reading Location: [id number]
== END | disposition home or self-care (01) ==
PROVIDERS: PCP Family Medicine; Referring Provider Orthopaedic Surgery Orthopaedic Surgery of the Spine; Visit Provider Orthopaedic Surgery Orthopaedic Surgery of the Spine
DX: M54.16 Radiculopathy, lumbar region (principal)
CPT/HCPCS: 72148

== ENCOUNTER → 2024-11-02 | Outpatient (CLI) | payer MEDICARE, BC, SELFPAY ==
[2024-11-02 16:23] LABS: Hematocrit 38.3 % (37-47); Hemoglobin 12.7 g/dL (12.0-15.0); Immature Granulocytes Count 0.010 X10^3/uL (0.0-0.0); Mean Corp Hgb Conc 33.2 g/dL (32-36); Mean Corpuscular Volume 96.2 fL (81-99); Mean Platelet Vol. 9.0 fl (6.2-12.0); NRBC Flagged by Analyzer 0 % (0-5); Platelet Count 254 K/mm3 (150-450); RBC Distribution Width CV 12.4 % (11.6-14.6); RBC Distribution Width SD 44.1 fl (35.1-43.9); Red Blood Count 3.98 M/mm3 (4.2-5.4); White Blood Count 4.7 K/mm3 (4.4-11.0)
[2024-11-02 17:10] LABS: AST(SGOT) 29 U/L (<=31); Alanine Aminotransfer ALT/SGPT 22 U/L (<=34); Albumin, Serum 4.3 g/dL (3.4-4.8); Alkaline Phosphatase 87 U/L (35-104); Anion Gap 11 (5-15); BUN 11 mg/dL (4-19); BUN/Creat Ratio 16.3 RATIO (10-20); Calcium,Total 9.2 mg/dL (7.6-11.0); Carbon Dioxide 25.0 mmol/L (21.0-32.0); Chloride 105 mmol/L (98-108); Cholesterol 300 mg/dL (<=200); Globulin 2.2 g/dL (2.2-4.2); Glucose 95 mg/dL (70-99); Hepatitis C Antibody Nonreactive (Nonreactive); Low Density Lipoprotein Calc. 168 mg/dL; Potassium 3.9 mmol/L (3.3-5.1); Triglycerides 130 mg/dL; Very Low Density Lipoprotein 26 mg/dL (5-40); Vitamin D,25 Hydroxy 104.0 ng/mL (30-100); cholesterol:hdl ratio screen 2.83
[2024-11-02 23:57] LABS: Xtra Tube Kwok EXTRA TUBE
== END | disposition home or self-care (01) ==
LOC: POLAB3 15:56
PROVIDERS: PCP Family Medicine Geriatric Medicine; Visit Provider Family Medicine Geriatric Medicine
DX: E55.9 Vitamin D deficiency, unspecified (principal); E78.5 Hyperlipidemia, unspecified; R53.83 Other fatigue
CPT/HCPCS: 36415; 80053; 80061; 82306; 84443; 85025; 86803

== ENCOUNTER 2024-12-01 17:30 | Outpatient (RCR) | payer MEDICARE, BC, SELFPAY ==
--- NOTE | 2024-10-27 19:09 | HP.PTEVAL_ITS ---
Patient's Visit Information Visit Information Visit Information: AYESHA FOLEY is a 74 year old F referred to Physical Therapy by Dr. 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 Date of Evaluation: 10/27/24 Physical Therapist: CHAD Sifuentes Visit Plan Frequency: 2x /Week Duration: 2 Months Plan: 2X/ week for 8 weeks for neutral spine core stability, LE strength, postural exercises with HEP HEP: PT, PT with supine clams with pink band, and PT with hip flexion with pink band Subjective Subjective: Pt has had nerve blocks in the past and now they are wearing off. Pt is having pain down the R leg worse than the L now and pain across the LB. She is not able to sleep more than a few hours due to pain. She has pain getting up from a chair and pain when she bends over. Pt has a pain management appt next week. Pain Back pain: Pain Intensity (Out of 10): 2 R leg pain: Pain Intensity (Out of 10): 0 L leg pain: Pain Intensity (Out of 10): 0 Objective Objective: Instructed pt in sleeping position to help get some sleep with pillow props. She goes to the gym a couple times a week and it does not hurt other than soreness the next day. She laid in L sidelying with pillow under side and pillow under R knee out in front of her for 5 minutes and had no pain. Sit to stand with UE support causes increase back pain LE MMT: R hip flex 7.3 and L 7.9 R knee ext 10.2 and L 9.5 R knee flex 8.9 and L 8.5 R hip abd 10.2 and L 9.5 Gait: walks with very stiff back and no trunk rotation Pelvic tilt no pain but pain with arched back. Balance/Special Test Scores Oswestry Low Back Score: 19 Goals Goal 1:: I HEP Goal Time Frame: 6-8 Weeks Goal 2:: Be able to sleep 4 hours a more a night without waking up in pain Goal Time Frame: 6-8 Weeks Goal 3:: Be able to sit to stand without having pain Goal Time Frame: 6-8 Weeks Rehabilitation Potential Rehabilitation Potential: Good Anticipated Interventions Patient/Client Instruction: Educate patient on: Condition and Plan of Care For the Purpose of:: To decrease pain, To increase ROM, To improve muscle performance and motor function, To improve ability to perform ADL's, To increase tolerance to activity/condition/position, To improve performance and independence with ADL's, To improve gait and locomotor functions, To improve health of tissue, To decrease soft tissue restriction and To increase flexibilit y/ROM Therapeutic Exercise to Include: Strength training, Endurance training, Balance training, Body mechanics, Postural training, Flexibilty training, Gait and locomotor training, Active ROM, Dynamic Lumbar Stabilization and Melissa Exercises For the Purpose of:: To decrease pain, To increase ROM, To improve nutrient delivery to tissue, To improve muscle performance and motor function, To improve ability to perform ADL's, To increase tolerance to activity/condition/position, To improve performance and independence with ADL's, To decrease level of supervision to perform tasks, To improve ability of physical actions for home/community/work/leisure, To improve gait and locomotor functions, To improve health of tissue, To decrease soft tissue restriction, To increase flexibility/ROM and To improve endurance Functional Training to Include: Gait training For the Purpose of:: To improve gait and locomotor functions and To improve safety with gait Text: Thank you for the opportunity to evaluate your patient. For Medicare and Medicare HMO plans, please review the plan of care and approve it. It will need to be FAXED BACK to us at [phone] for Medicare purposes. For Medicare only, by signing this I certify the plan of care. Please let me know if there are questions or concerns regarding this plan of care. Physician Signature: Date:
--- NOTE | 2024-12-01 17:50 | HP.PTDCSUM_ITS ---
Discharge Summary D/C summary: It has been my pleasure to treat AYESHA FOLEY referred by Dr. Mookie Damon MD, with the diagnosis of L Radic, spondylolithesisL4/L5 R >L for a total of 9 visit(s). Discharge Date: 12/01/24 Please see the following information for a summary of their discharge status. Subjective Subjective: Pt loves the water but she hurt her elbow. She was doing the bar faulkner in the water and now she started to have L elbow pain at the lateral epicon dyle. Her back is not better but her hip is better. She does not have to pause when she stands up. She is getting injections next week. She still can not lay on her R side. She loved water therapy. She has been coming on her own and doing exercises. Dr Mabry is going to do her injections. She is sleeping much better with a bunch of pillows. Pain Back pain: Pain Intensity (Out of 10): 4 R leg pain: Pain Intensity (Out of 10): 0 L leg pain: Pain Intensity (Out of 10): 0 Overall Improvement % Improvement: 50 Objective Objective/Function: Pt is able to stand up immed and walk without having pain. She is indep with her AT and mat table exercises. Walked around the gym floor to look at some of the exercise machines Goals Goal 1:: I HEP Goal Progress: Goal Met Goal 2:: Be able to sleep 4 hours a more a night without waking up in pain Goal Progress: Goal Met Goal 3:: Be able to sit to stand without having pain Goal Progress: Goal Met Plan Plan: DC PT to HEP D/C Information Discharge Comments: DC PT d/c sentence: If there are questions or concerns regarding this patient's physical therapy, please feel free to call me at [phone]. Thank you for the referral of this patient. Sincerely, Loraine Jackson, MPT Balance/Gait/Functional tests Balance/Special Test Scores Oswestry Low Back Score: 6 Improvement % Improvement: 50
== END 2024-12-01 19:00 | disposition home or self-care (01) ==
LOC: PT 17:30
PROVIDERS: PCP Family Medicine; Referring Provider Orthopaedic Surgery Orthopaedic Surgery of the Spine; Visit Provider Orthopaedic Surgery Orthopaedic Surgery of the Spine
DX: M54.16 Radiculopathy, lumbar region (principal); M43.16 Spondylolisthesis, lumbar region
CPT/HCPCS: 97110; 97113; 97161; 97530

== ENCOUNTER → 2025-02-01 | Outpatient (CLI) | payer MEDICARE, BC, SELFPAY ==
--- NOTE | 2025-02-01 09:43 | BD_ITS ---
PROCEDURE: DEXA BONE DENSITY STUDY 02/01/2025 REASON FOR EXAM: OSTEOPOROSIS F, age 74 y/o . Postmenopausal. TECHNIQUE: Procedure Code: BDDBD Modality: DX Procedure: DEXA BONE DENSITY STUDY COMPARISON: Prior study dated September 17, 2022. FINDINGS: BMD and T-SCORES Lumbar spine: 0.988 g/cm2, T-score -0.4 Levels: L1 through L4 Change from prior: Improvement of 1%. Left femoral neck: 0.609 g/cm2, T-score -2.2 Femoral neck comparison data not recommended for monitoring change. Left total hip: 0.723 g/cm2, T-score -1.8 Change from prior: Improvement of 6.5%. Right femoral neck: 0.639 g/cm2, T-score -1.9 Femoral neck comparison data not recommended for monitoring change. Right total hip: 0.696 g/cm2, T-score -2.0 Change from prior: Improvement of 1.4%. The World Health Organization has defined the following categories based on bone density: Normal bone density: T-score equal to or greater than -1.0 Osteopenia: T-score between -1.0 and -2.5 Osteoporosis: T-score equal to or less than -2.5 FRAX (or Comparable) Fracture Risk Assessment: 10 Year Probability of Fracture: Major Osteoporotic Fracture: 39% Hip Fracture: 13% (Note: FRAX is not to be reported in setting of normal range bone density, osteoporosis on DEXA, known history of osteoporosis, prior osteoporotic hip or vertebral fracture, or for any patient undergoing pharmacological treatment for bone loss.) The National Osteoporosis Foundation (NOF) recommends pharmacological treatment for patients with a FRAX 10-year risk of 3% or higher for a hip fracture, or 20% or higher for a major osteoporotic fracture, to prevent osteoporosis and reduce fracture risk. The patient does meet the pharmacological treatment recommendations for prevention of osteoporosis. BD/Dexa Bone Density Study IMPRESSION: OSTEOPENIA. Recommend follow-up as clinically warranted. Reading Location: [id number]
--- NOTE | 2025-02-01 10:30 | BI_ITS ---
EXAM: SCRN MAMM (CAD)W/VANDANA BILAT DATE: 02/01/2025 CLINICAL HISTORY: F, Age 74 y/o , SCREENING FOR BREAST CANCER No family history. TECHNIQUE: Procedure Code: [id number] Modality: MG Procedure: SCRN MAMM (CAD)W/VANDANA BILAT COMPARISON: Prior exam(s) dated January 29, 2024.. FINDINGS: TISSUE DENSITY: There are scattered areas of fibroglandular density. Bilateral Breast Mammographic Findings: No significant masses, calcifications or other abnormalities are identified. Stable small bilateral axillary lymph nodes containing fat. No suspicious masses, areas of developing architectural distortion, or suspicious calcifications. There has been no significant interval change. BI/SCRN MAMM (CAD)W/VANDANA BILAT IMPRESSION: Stable bilateral screening mammogram. OVERALL FINAL ASSESSMENT BI-RADS 2: BENIGN RECOMMENDATION: Routine annual follow-up in 1 Year Additional Recommendation none A letter with findings and recommendations will be mailed to the patient. Reading Location: [facility]
== END | disposition home or self-care (01) ==
PROVIDERS: PCP Family Medicine Geriatric Medicine
DX: M81.0 Age-related osteoporosis without current pathological fracture (principal); Z78.0 Asymptomatic menopausal state; Z12.31 Encounter for screening mammogram for malignant neoplasm of breast
CPT/HCPCS: 77063; 77067; 77080

== ENCOUNTER → 2025-02-15 | Outpatient (CLI) | payer MEDICARE, BC, SELFPAY ==
[2025-02-15 10:40] LABS: Hematocrit 39.7 % (37-47); Hemoglobin 12.9 g/dL (12.0-15.0); Immature Granulocytes Count 0.010 X10^3/uL (0.0-0.0); Mean Corp Hgb Conc 32.5 g/dL (32-36); Mean Corpuscular Volume 96.8 fL (81-99); Mean Platelet Vol. 8.7 fl (6.2-12.0); NRBC Flagged by Analyzer 0 % (0-5); Platelet Count 259 K/mm3 (150-450); RBC Distribution Width CV 12.4 % (11.6-14.6); RBC Distribution Width SD 44.2 fl (35.1-43.9); Red Blood Count 4.10 M/mm3 (4.2-5.4); White Blood Count 5.0 K/mm3 (4.4-11.0)
[2025-02-15 10:59] LABS: AST(SGOT) 26 U/L (<=31); Alanine Aminotransfer ALT/SGPT 18 U/L (<=34); Albumin, Serum 4.0 g/dL (3.4-4.8); Alkaline Phosphatase 127 U/L (35-104); Anion Gap 9 (7-18); BUN 11 mg/dL (4-19); BUN/Creat Ratio 16.8 RATIO (10-20); Calcium,Total 9.0 mg/dL (7.6-11.0); Carbon Dioxide 27.4 mmol/L (20.0-29.0); Chloride 103 mmol/L (96-106); Globulin 2.1 g/dL (2.2-4.2); Glucose 85 mg/dL (70-99); Potassium 4.3 mmol/L (3.5-5.1)
[2025-02-15 18:29] LABS: Xtra Tube Kwok EXTRA TUBE
== END | disposition home or self-care (01) ==
LOC: POLAB3 10:29
PROVIDERS: PCP Family Medicine Geriatric Medicine; Visit Provider Family Medicine Geriatric Medicine
DX: I10 Essential (primary) hypertension (principal)
CPT/HCPCS: 36415; 80053; 85025